=== PATIENT | male | born 1985 | race Caucasian/White ===

== ENCOUNTER 2020-10-01 08:48 | Inpatient (IN) ==
[2020-10-01] MEDS ORDERED: SODIUM CHLORIDE 0.9% 1000ML 2,000 ML IV ONE (09:14)
[2020-10-01] MEDS ORDERED: MULTI-VITAMIN INFUSION 10 ML, THIAMINE HCL 100 MG, FOLIC ACID 1 MG in SODIUM CHLORIDE 0... IV ONE (09:20)
--- NOTE | 2020-10-01 09:22 | Emergency Department Note ---
History of Present Illness General Chief complaint: Shortness of Breath/Dyspnea Stated complaint: SOB Time Seen by Provider: 10/01/20 09:05 History of Present Illness Maximum Pain Intensity: 7 This is a 35-year-old male who presents to the ED with a chief complaint of shortness of breath. The patient has been seen twice in the emergency department here in the past 8 months and is noted to have history of chronic alcohol abuse and alcoholism tendencies. He is a smoker. He is chronically on Suboxone for chronic pain issues. The patient also reports being on lisinopril for hypertension. The patient reports that he feels like he cannot breathe for the past couple of days. He also reported having a bad cough. He describes some mild chest pains which he states" feels like there is fluid in there". The patient denies any other complaints at this time. He has not had any fevers. The patient states that he got up to go to work at [employer] this morning I did not feel well enough to get there. He came to the hospital for his symptoms. Home Medications Medication Instructions Recorded Confirmed Type lisinopril 5 mg tablet 5 mg PO DAILY #30 tab 02/17/20 10/01/20 Rx buprenorphine 8 mg-naloxone 2 mg 1 tab SUBLINGUAL BID 09/04/20 10/01/20 History sublingual tablet Allergies Allergy/AdvReac Type Severity Reaction Status Date / Time No Known Allergies Allergy Unverified 10/01/20 09:46 Past Med/Surg History Medical History Alcohol use Narcotic abuse Surgical History No pertinent past surgical history Social History (Updated 10/01/20 @ 14:35 by IAM Niño) Smoking Status: Current every day smoker Tobacco Type: Cigarettes and E-cigarettes / Vaping Hx Alcohol Use: Yes Hx Substance Use: Yes (Currently on Suboxone) Prescribed Medications: Painkillers Feels Safe at Home: Yes Review of Systems As above otherwise negative for 10 systems Physical Exam Vital Signs Vital Signs - 24 hr 10/01/20 08:56 10/01/20 09:03 10/01/20 09:20 Temperature 36.4 C L Temperature Source Oral Pulse Rate 139 H 130 H Pulse Rate [Apical] Pulse Rate from SpO2 Sensor 129 H Respiratory Rate 32 H 22 Blood Pressure 83/52 L 113/59 L Blood Pressure [Left Arm] Blood Pressure Mean 62 77 Blood Pressure Mean [Left Arm] Blood Pressure Position [Left Arm] Pulse Oximetry 98 100 100 Oxygen Delivery Method Room Air Room Air Sepsis Recent Fever Within 48 Hours No Sepsis New/Unexplained Change in Mental Status N/A Sepsis Action Taken by Nursing No Action Required 10/01/20 09:30 10/01/20 10:00 10/01/20 10:04 Temperature Temperature Source Pulse Rate 123 H 118 H Pulse Rate [Apical] 118 H Pulse Rate from SpO2 Sensor 123 H 120 H Respiratory Rate 24 21 24 Blood Pressure 76/50 L 72/54 L Blood Pressure [Left Arm] 112/54 L Blood Pressure Mean 58 60 Blood Pressure Mean [Left Arm] 73 Blood Pressure Position [Left Arm] Lying Pulse Oximetry 96 96 100 Oxygen Delivery Method Room Air Sepsis Recent Fever Within 48 Hours Sepsis New/Unexplained Change in Mental Status Sepsis Action Taken by Nursing 10/01/20 10:30 10/01/20 11:00 10/01/20 11:31 Temperature Temperature Source Pulse Rate 120 H 121 H 130 H Pulse Rate [Apical] Pulse Rate from SpO2 Sensor 119 H 122 H 130 H Respiratory Rate 18 21 18 Blood Pressure 142/88 H 130/58 L 82/61 L Blood Pressure [Left Arm] Blood Pressure Mean 106 82 68 Blood Pressure Mean [Left Arm] Blood Pressure Position [Left Arm] Pulse Oximetry 99 98 98 Oxygen Delivery Method Sepsis Recent Fever Within 48 Hours Sepsis New/Unexplained Change in Mental Status Sepsis Action Taken by Nursing 10/01/20 11:45 10/01/20 12:00 10/01/20 12:15 Temperature Temperature Source Pulse Rate 125 H 128 H 135 H Pulse Rate [Apical] Pulse Rate from SpO2 Sensor 125 H 128 H 135 H Respiratory Rate 17 19 Blood Pressure 121/62 111/61 111/64 Blood Pressure [Left Arm] Blood Pressure Mean 81 77 79 Blood Pressure Mean [Left Arm] Blood Pressure Position [Left Arm] Pulse Oximetry 98 99 97 Oxygen Delivery Method Sepsis Recent Fever Within 48 Hours Sepsis New/Unexplained Change in Mental Status Sepsis Action Taken by Nursing 10/01/20 12:51 10/01/20 13:28 Temperature Temperature Source Pulse Rate 133 H Pulse Rate [Apical] 130 H Pulse Rate from SpO2 Sensor Respiratory Rate 13 20 Blood Pressure Blood Pressure [Left Arm] 97/47 L Blood Pressure Mean Blood Pressure Mean [Left Arm] 63 Blood Pressure Position [Left Arm] Pulse Oximetry 98 Oxygen Delivery Method Room Air Sepsis Recent Fever Within 48 Hours Sepsis New/Unexplained Change in Mental Status Sepsis Action Taken by Nursing CONSTITUTIONAL/VITAL SIGNS: Reviewed / noted above. GENERAL: Non-toxic in appearance. INTEGUMENTARY: Warm, dry, and [place]. HEAD: Normocephalic. EYES: without scleral icterus or trauma. ENT/OROPHARYNX: clear and moist. LYMPHADENOPATHY/NECK: Is supple without lymphadenopathy or meningismus. RESPIRATORY: Lungs clear and equal. CARDIOVASCULAR: Tachycardic rate and regular rhythm GI/ABDOMEN: Soft and nontender. No organomegaly or pulsatile mass. No rebound or guarding. Normal bowel sounds. EXTREMITIES: Warm and well perfused. BACK: No CVA tenderness. NEUROLOGICAL: Intact without focal deficits. PSYCHIATRIC: normal affect. MUSCULOSKELETAL: Normally developed with good muscle tone. TRIAGE NURSING DOCUMENTATION REVIEWED. Procedures Central Line Placement Left IJ: Time Out Performed: Yes Patient Placed on Monitor/Pulse Ox: Yes MD Prep: mask, gown and gloves Central Line Prep: Chlorhexidine scrub Local Anesthetic: lidocaine 1% Amount of anesthesia used (mL): 5 Ultrasound Used for Placement: Yes Central Line Lumen Inserted: triple Post Procedure: sutured in place, good blood return, all ports aspirated, flushed, capped and sterile dressing applied Post Procedure X-Ray: tip of catheter in good position and no pneumothorax seen Patient Tolerated Procedure: well and no complications Course Administered Medications Discontinued Medications Sodium Chloride (Nss 1000ml) 2,000 mls @ 999 mls/hr IV .Q2H1M ONE Stop: 10/01/20 11:14 Last Infusion: 10/01/20 14:06 Dose: 0 mls/hr Documented by: [id number] Admin: 10/01/20 09:24 Dose: 999 mls/hr Documented by: [id number] Multivitamins 10 ml/ Thiamine HCl 100 mg/ Folic Acid 1 mg/Sodium Chloride 1,011.2 mls @ 1,011.2 mls/hr IV .Q1H ONE Stop: 10/01/20 10:19 Last Infusion: 10/01/20 14:06 Dose: 0 mls/hr Documented by: [id number] Admin: 10/01/20 10:15 Dose: 1,011.2 mls/hr Documented by: [id number] Potassium Chloride (K Paco / Wtr) 10 meq in 100 mls @ 100 mls/hr IV Q1H BRENDA Stop: 10/01/20 12:44 Last Admin: 10/01/20 14:28 Dose: 100 mls/hr Documented by: [id number] Infusion: 10/01/20 14:16 Dose: 100 mls/hr Documented by: [id number] Admin: 10/01/20 13:16 Dose: 100 mls/hr Documented by: [id number] Ceftriaxone Sodium (Rocephin) 2,000 mg in 70 mls @ 140 mls/hr IV NOW STA Stop: 10/01/20 13:01 Last Infusion: 10/01/20 14:06 Dose: 0 mls/hr Documented by: [id number] Admin: 10/01/20 13:11 Dose: 140 mls/hr Documented by: [id number] Azithromycin 500 mg/ Dextrose 255 mls @ 127.5 mls/hr IV NOW STA Stop: 10/01/20 15:06 Last Admin: 10/01/20 13:24 Dose: 127.5 mls/hr Documented by: [id number] Ioversol (Optiray 320 125ml) 120 ml IV ONCE ONE Stop: 10/01/20 09:36 Last Admin: 10/01/20 09:35 Dose: 120 ml Documented by: [id number] Potassium Chloride (Potassium Chloride 10 Meq Tabcr) 40 meq PO NOW STA Stop: 10/01/20 10:45 Last Admin: 10/01/20 14:05 Dose: 40 meq Documented by: [id number] Potassium Chloride (Potassium Chloride 10 Meq Tabcr) Confirm Administered Dose 40 meq PO .STK-MED ONE Stop: 10/01/20 14:04 Last Admin: 10/01/20 14:05 Dose: Not Given Documented by: [id number] Critical Care Time Critical Care Time: Yes Total Critical Care Time: 90 I have personally spent 30 minutes of critical care time in the direct management of this patient. This includes bedside care, interpretation of diagnostic studies, and testing, discussion with consultants, patient, and family members, and other required patient management activities. This 30 minutes is in excess of all separately billable procedures. Medical Decision Making Differential Diagnosis The differential that was considered includes acute myocardial infarction, acute coronary syndrome, myocarditis, pericarditis, pericardial effusions /tamponade, esophageal perforation, thoracic aortic dissection, pulmonary embolism, pneumonia, pneumothorax, pancreatitis, shingles, acute cholecystitis, perforated abdominal viscus. Medical Records Attestation: I reviewed the patient's medical records. Home Medications Current Medication List: was personally reviewed by me Laboratory Data Attestation: I reviewed the patient's lab results. Result diagrams: 10/01/20 09:20 10/01/20 09:20 Lab Results 10/01/20 10/01/20 10/01/20 Range/Units 09:20 09:20 09:20 WBC 17.99 H (4.8-10.8) K/uL RBC 4.22 L (4.7-6.1) M/uL Hgb 13.9 L (14.0-18.0) g/dL POC Hgb (14.0-18.0) g/dl Hct 39.9 L (42-52) % POC Hct (42-52) % MCV 94.5 (80-100) fL MCH 32.9 (25-34) pg MCHC 34.8 (32-36) g/dL RDW Std Deviation 47.2 H (36.4-46.3) fL RDW Coeff of Desiree 13.7 (11.5-14.5) % Plt Count 229 (130-400) K/uL MPV 11.0 H (7.4-10.4) fL Immature Gran % (Auto) 0.5 % Neut % (Auto) 85.7 % Lymph % (Auto) 5.9 % [place] % (Auto) 7.7 % Eos % (Auto) 0.1 % Baso % (Auto) 0.1 % Neut # (Auto) 15.43 H (1.4-6.5) K/uL Lymph # (Auto) 1.07 L (1.2-3.4) K/uL [place] # (Auto) 1.38 H (0.11-0.59) K/uL Eos # (Auto) 0.01 (0-0.5) K/uL Baso # (Auto) 0.01 (0-0.2) K/uL Immature Gran # (Auto) 0.09 H (0.00-0.02) K/uL PT 10.6 (9.0-12.0) Seconds INR 1.0 (0.9-1.1) APTT 26.5 (21.0-31.0) Seconds PTT Ratio 1.0 D-Dimer 400 (0-500) ug/L FEU ABG pH (7.35-7.45) ABG pCO2 (35-46) mmHg ABG pO2 (80-95) mmHg ABG HCO3 (19-24) mmol/L ABG O2 Saturation (90-95) % ABG Base Excess (-9-1.8) mEq/L Andrew Test (Pos) Barometric Pressure mm/Hg Oxygen Given POC Sodium (135-144) mmol/L Sodium 115 L* (136-145) mmol/L POC Potassium (3.3-5.0) mmol/L Potassium 2.3 L* (3.5-5.1) mmol/L POC Chloride (101-112) mmol/L Chloride 70 L (98-107) mmol/L Carbon Dioxide 18 L (21-32) mmol/L POC Total CO2 (24-31) mmol/L Anion Gap 26.0 H (3-11) POC Anion Gap (16-25) mmol/L POC BUN (7-18) mg/dl BUN 37 H (7-18) mg/dl Creatinine 6.96 H* (0.6-1.4) mg/dl POC Creatinine (0.6-1.3) mg/dl Est Cr Clr Drug Dosing 18.5 ml/min Est GFR ( Amer) 10.7 ml/min Est GFR (Non-Af Amer) 9.2 ml/min BUN/Creatinine Ratio 5.3 L (10-20) Glucose 269 H (70-99) mg/dl POC Glucose (other) (70-99) mg/dl Osmolality (280-300) mOsm/kg POC Lactic Acid Dewayne (0.90-1.70) mmol/L Lactate Calcium 10.7 H (8.5-10.1) mg/dl POC Ioniz Calcium Nicolas (1.12-1.32) mmol/l Total Bilirubin 2.4 H (0.2-1) mg/dl AST 128 H (15-37) U/L ALT 66 (12-78) U/L Alkaline Phosphatase 218 H (45-117) U/L Troponin I 0.036 (0-0.045) ng/ml Total Protein 7.5 (6.4-8.2) gm/dl Albumin 3.0 L (3.4-5.0) gm/dl Globulin 4.5 H (2.5-4.0) gm/dl Albumin/Globulin Ratio 0.7 L (0.9-2) Lipase 202 (73-393) U/L Procalcitonin (0-0.5) ng/ml Urine Color Urine Appearance (Clear) Urine pH (4.5-7.5) Ur Specific [place]verse (1.000-1.030) Urine Protein (Negative) Urine Glucose (UA) (Negative) Urine Ketones (Negative) Urine Blood (Negative) Urine Nitrite (Negative) Urine Bilirubin (Negative) Urine Urobilinogen (Negative) Ur Leukocyte Esterase (Negative) Urine WBC (Auto) (0-5) /hpf Urine RBC (Auto) (0-4) /hpf U Hyaline Cast (Auto) (0-5) /lpf U Epithel Cells (Auto) (0-5) /lpf Urine Bacteria (Auto) (Negative) Urine Osmolality (500-800) mOsm/kg Ur Random Creatinine mg/dl Ur Random Sodium mmol/L Ur Random Potassium mmol/L Ur Random Chloride mmol/L Urine Opiates Screen (Neg) Ur Methadone, Qual (Neg) Urine Barbiturates (Neg) Ur Phencyclidine (PCP) (Neg) U Amphetamin/Meth Scrn (Neg) MDMA (Ecstasy) Screen (Neg) U Benzodiazepines Scrn (Neg) Ur Cocaine Metabolite (Neg) U Marijuana (THC) Screen (Neg) Ethyl Alcohol mg/dL (0-3) mg/dl Anaplasma Smear Lyme Disease IgG Ab (Negative) Lyme Disease IgM Ab (Negative) COVID-19 Eval Order SARS-CoV-2 (PCR) (Negative) 10/01/20 10/01/20 10/01/20 Range/Units 09:20 09:20 09:20 WBC (4.8-10.8) K/uL RBC (4.7-6.1) M/uL Hgb (14.0-18.0) g/dL POC Hgb (14.0-18.0) g/dl Hct (42-52) % POC Hct (42-52) % MCV (80-100) fL MCH (25-34) pg MCHC (32-36) g/dL RDW Std Deviation (36.4-46.3) fL RDW Coeff of Desiree (11.5-14.5) % Plt Count (130-400) K/uL MPV (7.4-10.4) fL Immature Gran % (Auto) % Neut % (Auto) % Lymph % (Auto) % [place] % (Auto) % Eos % (Auto) % Baso % (Auto) % Neut # (Auto) (1.4-6.5) K/uL Lymph # (Auto) (1.2-3.4) K/uL [place] # (Auto) (0.11-0.59) K/uL Eos # (Auto) (0-0.5) K/uL Baso # (Auto) (0-0.2) K/uL Immature Gran # (Auto) (0.00-0.02) K/uL PT (9.0-12.0) Seconds INR (0.9-1.1) APTT (21.0-31.0) Seconds PTT Ratio D-Dimer (0-500) ug/L FEU ABG pH (7.35-7.45) ABG pCO2 (35-46) mmHg ABG pO2 (80-95) mmHg ABG HCO3 (19-24) mmol/L ABG O2 Saturation (90-95) % ABG Base Excess (-9-1.8) mEq/L Andrew Test (Pos) Barometric Pressure mm/Hg Oxygen Given POC Sodium (135-144) mmol/L Sodium (136-145) mmol/L POC Potassium (3.3-5.0) mmol/L Potassium (3.5-5.1) mmol/L POC Chloride (101-112) mmol/L Chloride (98-107) mmol/L Carbon Dioxide (21-32) mmol/L POC Total CO2 (24-31) mmol/L Anion Gap (3-11) POC Anion Gap (16-25) mmol/L POC BUN (7-18) mg/dl BUN (7-18) mg/dl Creatinine (0.6-1.4) mg/dl POC Creatinine (0.6-1.3) mg/dl Est Cr Clr Drug Dosing ml/min Est GFR ( Amer) ml/min Est GFR (Non-Af Amer) ml/min BUN/Creatinine Ratio (10-20) Glucose (70-99) mg/dl POC Glucose (other) (70-99) mg/dl Osmolality (280-300) mOsm/kg POC Lactic Acid Dewayne (0.90-1.70) mmol/L Lactate Cancelled Calcium (8.5-10.1) mg/dl POC Ioniz Calcium Nicolas (1.12-1.32) mmol/l Total Bilirubin (0.2-1) mg/dl AST (15-37) U/L ALT (12-78) U/L Alkaline Phosphatase (45-117) U/L Troponin I (0-0.045) ng/ml Total Protein (6.4-8.2) gm/dl Albumin (3.4-5.0) gm/dl Globulin (2.5-4.0) gm/dl Albumin/Globulin Ratio (0.9-2) Lipase (73-393) U/L Procalcitonin 6.71 H (0-0.5) ng/ml Urine Color Urine Appearance (Clear) Urine pH (4.5-7.5) Ur Specific [place] (1.000-1.030) Urine Protein (Negative) Urine Glucose (UA) (Negative) Urine Ketones (Negative) Urine Blood (Negative) Urine Nitrite (Negative) Urine Bilirubin (Negative) Urine Urobilinogen (Negative) Ur Leukocyte Esterase (Negative) Urine WBC (Auto) (0-5) /hpf Urine RBC (Auto) (0-4) /hpf U Hyaline Cast (Auto) (0-5) /lpf U Epithel Cells (Auto) (0-5) /lpf Urine Bacteria (Auto) (Negative) Urine Osmolality (500-800) mOsm/kg Ur Random Creatinine mg/dl Ur Random Sodium mmol/L Ur Random Potassium mmol/L Ur Random Chloride mmol/L Urine Opiates Screen (Neg) Ur Methadone, Qual (Neg) Urine Barbiturates (Neg) Ur Phencyclidine (PCP) (Neg) U Amphetamin/Meth Scrn (Neg) MDMA (Ecstasy) Screen (Neg) U Benzodiazepines Scrn (Neg) Ur Cocaine Metabolite (Neg) U Marijuana (THC) Screen (Neg) Ethyl Alcohol mg/dL (0-3) mg/dl Anaplasma Smear See Comment Lyme Disease IgG Ab (Negative) Lyme Disease IgM Ab (Negative) COVID-19 Eval Order SARS-CoV-2 (PCR) (Negative) 10/01/20 10/01/20 10/01/20 Range/Units 09:30 09:30 09:30 WBC (4.8-10.8) K/uL RBC (4.7-6.1) M/uL Hgb (14.0-18.0) g/dL POC Hgb (14.0-18.0) g/dl Hct (42-52) % POC Hct (42-52) % MCV (80-100) fL MCH (25-34) pg MCHC (32-36) g/dL RDW Std Deviation (36.4-46.3) fL RDW Coeff of Desiree (11.5-14.5) % Plt Count (130-400) K/uL MPV (7.4-10.4) fL Immature Gran % (Auto) % Neut % (Auto) % Lymph % (Auto) % [place] % (Auto) % Eos % (Auto) % Baso % (Auto) % Neut # (Auto) (1.4-6.5) K/uL Lymph # (Auto) (1.2-3.4) K/uL [place] # (Auto) (0.11-0.59) K/uL Eos # (Auto) (0-0.5) K/uL Baso # (Auto) (0-0.2) K/uL Immature Gran # (Auto) (0.00-0.02) K/uL PT (9.0-12.0) Seconds INR (0.9-1.1) APTT (21.0-31.0) Seconds PTT Ratio D-Dimer (0-500) ug/L FEU ABG pH (7.35-7.45) ABG pCO2 (35-46) mmHg ABG pO2 (80-95) mmHg ABG HCO3 (19-24) mmol/L ABG O2 Saturation (90-95) % ABG Base Excess (-9-1.8) mEq/L Andrew Test (Pos) Barometric Pressure mm/Hg Oxygen Given POC Sodium (135-144) mmol/L Sodium (136-145) mmol/L POC Potassium (3.3-5.0) mmol/L Potassium (3.5-5.1) mmol/L POC Chloride (101-112) mmol/L Chloride (98-107) mmol/L Carbon Dioxide (21-32) mmol/L POC Total CO2 (24-31) mmol/L Anion Gap (3-11) POC Anion Gap (16-25) mmol/L POC BUN (7-18) mg/dl BUN (7-18) mg/dl Creatinine (0.6-1.4) mg/dl POC Creatinine (0.6-1.3) mg/dl Est Cr Clr Drug Dosing ml/min Est GFR ( Amer) ml/min Est GFR (Non-Af Amer) ml/min BUN/Creatinine Ratio (10-20) Glucose (70-99) mg/dl POC Glucose (other) (70-99) mg/dl Osmolality (280-300) mOsm/kg POC Lactic Acid Dewayne (0.90-1.70) mmol/L Lactate Calcium (8.5-10.1) mg/dl POC Ioniz Calcium Nicolas (1.12-1.32) mmol/l Total Bilirubin (0.2-1) mg/dl AST (15-37) U/L ALT (12-78) U/L Alkaline Phosphatase (45-117) U/L Troponin I (0-0.045) ng/ml Total Protein (6.4-8.2) gm/dl Albumin (3.4-5.0) gm/dl Globulin (2.5-4.0) gm/dl Albumin/Globulin Ratio (0.9-2) Lipase (73-393) U/L Procalcitonin (0-0.5) ng/ml Urine Color Urine Appearance (Clear) Urine pH (4.5-7.5) Ur Specific [place] (1.000-1.030) Urine Protein (Negative) Urine Glucose (UA) (Negative) Urine Ketones (Negative) Urine Blood (Negative) Urine Nitrite (Negative) Urine Bilirubin (Negative) Urine Urobilinogen (Negative) Ur Leukocyte Esterase (Negative) Urine WBC (Auto) (0-5) /hpf Urine RBC (Auto) (0-4) /hpf U Hyaline Cast (Auto) (0-5) /lpf U Epithel Cells (Auto) (0-5) /lpf Urine Bacteria (Auto) (Negative) Urine Osmolality (500-800) mOsm/kg Ur Random Creatinine mg/dl Ur Random Sodium mmol/L Ur Random Potassium mmol/L Ur Random Chloride mmol/L Urine Opiates Screen (Neg) Ur Methadone, Qual (Neg) Urine Barbiturates (Neg) Ur Phencyclidine (PCP) (Neg) U Amphetamin/Meth Scrn (Neg) MDMA (Ecstasy) Screen (Neg) U Benzodiazepines Scrn (Neg) Ur Cocaine Metabolite (Neg) U Marijuana (THC) Screen (Neg) Ethyl Alcohol mg/dL 22.9 H (0-3) mg/dl Anaplasma Smear Lyme Disease IgG Ab (Negative) Lyme Disease IgM Ab (Negative) COVID-19 Eval Order Covid19 at [facility] SARS-CoV-2 (PCR) NEGATIVE (Negative) 10/01/20 10/01/20 10/01/20 Range/Units 10:33 10:33 10:33 WBC (4.8-10.8) K/uL RBC (4.7-6.1) M/uL Hgb (14.0-18.0) g/dL POC Hgb (14.0-18.0) g/dl Hct (42-52) % POC Hct (42-52) % MCV (80-100) fL MCH (25-34) pg MCHC (32-36) g/dL RDW Std Deviation (36.4-46.3) fL RDW Coeff of Desiree (11.5-14.5) % Plt Count (130-400) K/uL MPV (7.4-10.4) fL Immature Gran % (Auto) % Neut % (Auto) % Lymph % (Auto) % [place] % (Auto) % Eos % (Auto) % Baso % (Auto) % Neut # (Auto) (1.4-6.5) K/uL Lymph # (Auto) (1.2-3.4) K/uL [place] # (Auto) (0.11-0.59) K/uL Eos # (Auto) (0-0.5) K/uL Baso # (Auto) (0-0.2) K/uL Immature Gran # (Auto) (0.00-0.02) K/uL PT (9.0-12.0) Seconds INR (0.9-1.1) APTT (21.0-31.0) Seconds PTT Ratio D-Dimer (0-500) ug/L FEU ABG pH (7.35-7.45) ABG pCO2 (35-46) mmHg ABG pO2 (80-95) mmHg ABG HCO3 (19-24) mmol/L ABG O2 Saturation (90-95) % ABG Base Excess (-9-1.8) mEq/L Andrew Test (Pos) Barometric Pressure mm/Hg Oxygen Given POC Sodium (135-144) mmol/L Sodium (136-145) mmol/L POC Potassium (3.3-5.0) mmol/L Potassium (3.5-5.1) mmol/L POC Chloride (101-112) mmol/L Chloride (98-107) mmol/L Carbon Dioxide (21-32) mmol/L POC Total CO2 (24-31) mmol/L Anion Gap (3-11) POC Anion Gap (16-25) mmol/L POC BUN (7-18) mg/dl BUN (7-18) mg/dl Creatinine (0.6-1.4) mg/dl POC Creatinine (0.6-1.3) mg/dl Est Cr Clr Drug Dosing ml/min Est GFR ( Amer) ml/min Est GFR (Non-Af Amer) ml/min BUN/Creatinine Ratio (10-20) Glucose (70-99) mg/dl POC Glucose (other) (70-99) mg/dl Osmolality 286 (280-300) mOsm/kg POC Lactic Acid Dewayne (0.90-1.70) mmol/L Lactate Cancelled Calcium (8.5-10.1) mg/dl POC Ioniz Calcium Nicolas (1.12-1.32) mmol/l Total Bilirubin (0.2-1) mg/dl AST (15-37) U/L ALT (12-78) U/L Alkaline Phosphatase (45-117) U/L Troponin I (0-0.045) ng/ml Total Protein (6.4-8.2) gm/dl Albumin (3.4-5.0) gm/dl Globulin (2.5-4.0) gm/dl Albumin/Globulin Ratio (0.9-2) Lipase (73-393) U/L Procalcitonin (0-0.5) ng/ml Urine Color Urine Appearance (Clear) Urine pH (4.5-7.5) Ur Specific [place] (1.000-1.030) Urine Protein (Negative) Urine Glucose (UA) (Negative) Urine Ketones (Negative) Urine Blood (Negative) Urine Nitrite (Negative) Urine Bilirubin (Negative) Urine Urobilinogen (Negative) Ur Leukocyte Esterase (Negative) Urine WBC (Auto) (0-5) /hpf Urine RBC (Auto) (0-4) /hpf U Hyaline Cast (Auto) (0-5) /lpf U Epithel Cells (Auto) (0-5) /lpf Urine Bacteria (Auto) (Negative) Urine Osmolality (500-800) mOsm/kg Ur Random Creatinine mg/dl Ur Random Sodium mmol/L Ur Random Potassium mmol/L Ur Random Chloride mmol/L Urine Opiates Screen (Neg) Ur Methadone, Qual (Neg) Urine Barbiturates (Neg) Ur Phencyclidine (PCP) (Neg) U Amphetamin/Meth Scrn (Neg) MDMA (Ecstasy) Screen (Neg) U Benzodiazepines Scrn (Neg) Ur Cocaine Metabolite (Neg) U Marijuana (THC) Screen (Neg) Ethyl Alcohol mg/dL (0-3) mg/dl Anaplasma Smear Lyme Disease IgG Ab Negative (Negative) Lyme Disease IgM Ab Equivocal A (Negative) COVID-19 Eval Order SARS-CoV-2 (PCR) (Negative) 10/01/20 10/01/20 10/01/20 Range/Units 10:59 11:02 12:08 WBC (4.8-10.8) K/uL RBC (4.7-6.1) M/uL Hgb (14.0-18.0) g/dL POC Hgb 15.6 (14.0-18.0) g/dl Hct (42-52) % POC Hct 46 (42-52) % MCV (80-100) fL MCH (25-34) pg MCHC (32-36) g/dL RDW Std Deviation (36.4-46.3) fL RDW Coeff of Desiree (11.5-14.5) % Plt Count (130-400) K/uL MPV (7.4-10.4) fL Immature Gran % (Auto) % Neut % (Auto) % Lymph % (Auto) % [place] % (Auto) % Eos % (Auto) % Baso % (Auto) % Neut # (Auto) (1.4-6.5) K/uL Lymph # (Auto) (1.2-3.4) K/uL [place] # (Auto) (0.11-0.59) K/uL Eos # (Auto) (0-0.5) K/uL Baso # (Auto) (0-0.2) K/uL Immature Gran # (Auto) (0.00-0.02) K/uL PT (9.0-12.0) Seconds INR (0.9-1.1) APTT (21.0-31.0) Seconds PTT Ratio D-Dimer (0-500) ug/L FEU ABG pH 7.44 (7.35-7.45) ABG pCO2 37 (35-46) mmHg ABG pO2 76 L (80-95) mmHg ABG HCO3 25 H (19-24) mmol/L ABG O2 Saturation 96.0 H (90-95) % ABG Base Excess 0.7 (-9-1.8) mEq/L Andrew Test Pos (Pos) Barometric Pressure 734.2 mm/Hg Oxygen Given ROOM AIR POC Sodium 117 L* (135-144) mmol/L Sodium (136-145) mmol/L POC Potassium 3.5 (3.3-5.0) mmol/L Potassium (3.5-5.1) mmol/L POC Chloride 80 L (101-112) mmol/L Chloride (98-107) mmol/L Carbon Dioxide (21-32) mmol/L POC Total CO2 24 (24-31) mmol/L Anion Gap (3-11) POC Anion Gap 17.0 (16-25) mmol/L POC BUN 53 H (7-18) mg/dl BUN (7-18) mg/dl Creatinine (0.6-1.4) mg/dl POC Creatinine 6.9 H* (0.6-1.3) mg/dl Est Cr Clr Drug Dosing ml/min Est GFR ( Amer) ml/min Est GFR (Non-Af Amer) ml/min BUN/Creatinine Ratio (10-20) Glucose (70-99) mg/dl POC Glucose (other) 130 H (70-99) mg/dl Osmolality (280-300) mOsm/kg POC Lactic Acid Dewayne (0.90-1.70) mmol/L Lactate Calcium (8.5-10.1) mg/dl POC Ioniz Calcium Nicolas 1.11 L (1.12-1.32) mmol/l Total Bilirubin (0.2-1) mg/dl AST (15-37) U/L ALT (12-78) U/L Alkaline Phosphatase (45-117) U/L Troponin I (0-0.045) ng/ml Total Protein (6.4-8.2) gm/dl Albumin (3.4-5.0) gm/dl Globulin (2.5-4.0) gm/dl Albumin/Globulin Ratio (0.9-2) Lipase (73-393) U/L Procalcitonin (0-0.5) ng/ml Urine Color Yellow Urine Appearance Clear (Clear) Urine pH 6.5 (4.5-7.5) Ur Specific [place] 1.008 (1.000-1.030) Urine Protein Trace H (Negative) Urine Glucose (UA) 1+ H (Negative) Urine Ketones Negative (Negative) Urine Blood 2+ H (Negative) Urine Nitrite Negative (Negative) Urine Bilirubin Negative (Negative) Urine Urobilinogen Negative (Negative) Ur Leukocyte Esterase Negative (Negative) Urine WBC (Auto) 1-5 (0-5) /hpf Urine RBC (Auto) 0-4 (0-4) /hpf U Hyaline Cast (Auto) 1-5 (0-5) /lpf U Epithel Cells (Auto) 10-20 H (0-5) /lpf Urine Bacteria (Auto) Negative (Negative) Urine Osmolality (500-800) mOsm/kg Ur Random Creatinine mg/dl Ur Random Sodium mmol/L Ur Random Potassium mmol/L Ur Random Chloride mmol/L Urine Opiates Screen (Neg) Ur Methadone, Qual (Neg) Urine Barbiturates (Neg) Ur Phencyclidine (PCP) (Neg) U Amphetamin/Meth Scrn (Neg) MDMA (Ecstasy) Screen (Neg) U Benzodiazepines Scrn (Neg) Ur Cocaine Metabolite (Neg) U Marijuana (THC) Screen (Neg) Ethyl Alcohol mg/dL (0-3) mg/dl Anaplasma Smear Lyme Disease IgG Ab (Negative) Lyme Disease IgM Ab (Negative) COVID-19 Eval Order SARS-CoV-2 (PCR) (Negative) 10/01/20 10/01/20 10/01/20 Range/Units 12:08 12:20 14:00 WBC (4.8-10.8) K/uL RBC (4.7-6.1) M/uL Hgb (14.0-18.0) g/dL POC Hgb (14.0-18.0) g/dl Hct (42-52) % POC Hct (42-52) % MCV (80-100) fL MCH (25-34) pg MCHC (32-36) g/dL RDW Std Deviation (36.4-46.3) fL RDW Coeff of Desiree (11.5-14.5) % Plt Count (130-400) K/uL MPV (7.4-10.4) fL Immature Gran % (Auto) % Neut % (Auto) % Lymph % (Auto) % [place] % (Auto) % Eos % (Auto) % Baso % (Auto) % Neut # (Auto) (1.4-6.5) K/uL Lymph # (Auto) (1.2-3.4) K/uL [place] # (Auto) (0.11-0.59) K/uL Eos # (Auto) (0-0.5) K/uL Baso # (Auto) (0-0.2) K/uL Immature Gran # (Auto) (0.00-0.02) K/uL PT (9.0-12.0) Seconds INR (0.9-1.1) APTT (21.0-31.0) Seconds PTT Ratio D-Dimer (0-500) ug/L FEU ABG pH (7.35-7.45) ABG pCO2 (35-46) mmHg ABG pO2 (80-95) mmHg ABG HCO3 (19-24) mmol/L ABG O2 Saturation (90-95) % ABG Base Excess (-9-1.8) mEq/L Andrew Test (Pos) Barometric Pressure mm/Hg Oxygen Given POC Sodium (135-144) mmol/L Sodium (136-145) mmol/L POC Potassium (3.3-5.0) mmol/L Potassium (3.5-5.1) mmol/L POC Chloride (101-112) mmol/L Chloride (98-107) mmol/L Carbon Dioxide (21-32) mmol/L POC Total CO2 (24-31) mmol/L Anion Gap (3-11) POC Anion Gap (16-25) mmol/L POC BUN (7-18) mg/dl BUN (7-18) mg/dl Creatinine (0.6-1.4) mg/dl POC Creatinine (0.6-1.3) mg/dl Est Cr Clr Drug Dosing ml/min Est GFR ( Amer) ml/min Est GFR (Non-Af Amer) ml/min BUN/Creatinine Ratio (10-20) Glucose (70-99) mg/dl POC Glucose (other) (70-99) mg/dl Osmolality (280-300) mOsm/kg POC Lactic Acid Dewayne 3.85 H (0.90-1.70) mmol/L Lactate Calcium (8.5-10.1) mg/dl POC Ioniz Calcium Nicolas (1.12-1.32) mmol/l Total Bilirubin (0.2-1) mg/dl AST (15-37) U/L ALT (12-78) U/L Alkaline Phosphatase (45-117) U/L Troponin I (0-0.045) ng/ml Total Protein (6.4-8.2) gm/dl Albumin (3.4-5.0) gm/dl Globulin (2.5-4.0) gm/dl Albumin/Globulin Ratio (0.9-2) Lipase (73-393) U/L Procalcitonin (0-0.5) ng/ml Urine Color Urine Appearance (Clear) Urine pH (4.5-7.5) Ur Specific Converse (1.000-1.030) Urine Protein (Negative) Urine Glucose (UA) (Negative) Urine Ketones (Negative) Urine Blood (Negative) Urine Nitrite (Negative) Urine Bilirubin (Negative) Urine Urobilinogen (Negative) Ur Leukocyte Esterase (Negative) Urine WBC (Auto) (0-5) /hpf Urine RBC (Auto) (0-4) /hpf U Hyaline Cast (Auto) (0-5) /lpf U Epithel Cells (Auto) (0-5) /lpf Urine Bacteria (Auto) (Negative) Urine Osmolality 238 L (500-800) mOsm/kg Ur Random Creatinine mg/dl Ur Random Sodium mmol/L Ur Random Potassium mmol/L Ur Random Chloride mmol/L Urine Opiates Screen Neg (Neg) Ur Methadone, Qual Neg (Neg) Urine Barbiturates Neg (Neg) Ur Phencyclidine (PCP) Neg (Neg) U Amphetamin/Meth Scrn Neg (Neg) MDMA (Ecstasy) Screen Neg (Neg) U Benzodiazepines Scrn Neg (Neg) Ur Cocaine Metabolite Neg (Neg) U Marijuana (THC) Screen Neg (Neg) Ethyl Alcohol mg/dL (0-3) mg/dl Anaplasma Smear Lyme Disease IgG Ab (Negative) Lyme Disease IgM Ab (Negative) COVID-19 Eval Order SARS-CoV-2 (PCR) (Negative) 10/01/20 Range/Units 14:00 WBC (4.8-10.8) K/uL RBC (4.7-6.1) M/uL Hgb (14.0-18.0) g/dL POC Hgb (14.0-18.0) g/dl Hct (42-52) % POC Hct (42-52) % MCV (80-100) fL MCH (25-34) pg MCHC (32-36) g/dL RDW Std Deviation (36.4-46.3) fL RDW Coeff of Desiree (11.5-14.5) % Plt Count (130-400) K/uL MPV (7.4-10.4) fL Immature Gran % (Auto) % Neut % (Auto) % Lymph % (Auto) % [place] % (Auto) % Eos % (Auto) % Baso % (Auto) % Neut # (Auto) (1.4-6.5) K/uL Lymph # (Auto) (1.2-3.4) K/uL [place] # (Auto) (0.11-0.59) K/uL Eos # (Auto) (0-0.5) K/uL Baso # (Auto) (0-0.2) K/uL Immature Gran # (Auto) (0.00-0.02) K/uL PT (9.0-12.0) Seconds INR (0.9-1.1) APTT (21.0-31.0) Seconds PTT Ratio D-Dimer (0-500) ug/L FEU ABG pH (7.35-7.45) ABG pCO2 (35-46) mmHg ABG pO2 (80-95) mmHg ABG HCO3 (19-24) mmol/L ABG O2 Saturation (90-95) % ABG Base Excess (-9-1.8) mEq/L Andrew Test (Pos) Barometric Pressure mm/Hg Oxygen Given POC Sodium (135-144) mmol/L Sodium (136-145) mmol/L POC Potassium (3.3-5.0) mmol/L Potassium (3.5-5.1) mmol/L POC Chloride (101-112) mmol/L Chloride (98-107) mmol/L Carbon Dioxide (21-32) mmol/L POC Total CO2 (24-31) mmol/L Anion Gap (3-11) POC Anion Gap (16-25) mmol/L POC BUN (7-18) mg/dl BUN (7-18) mg/dl Creatinine (0.6-1.4) mg/dl POC Creatinine (0.6-1.3) mg/dl Est Cr Clr Drug Dosing ml/min Est GFR ( Amer) ml/min Est GFR (Non-Af Amer) ml/min BUN/Creatinine Ratio (10-20) Glucose (70-99) mg/dl POC Glucose (other) (70-99) mg/dl Osmolality (280-300) mOsm/kg POC Lactic Acid Dewayne (0.90-1.70) mmol/L Lactate Calcium (8.5-10.1) mg/dl POC Ioniz Calcium Nicolas (1.12-1.32) mmol/l Total Bilirubin (0.2-1) mg/dl AST (15-37) U/L ALT (12-78) U/L Alkaline Phosphatase (45-117) U/L Troponin I (0-0.045) ng/ml Total Protein (6.4-8.2) gm/dl Albumin (3.4-5.0) gm/dl Globulin (2.5-4.0) gm/dl Albumin/Globulin Ratio (0.9-2) Lipase (73-393) U/L Procalcitonin (0-0.5) ng/ml Urine Color Urine Appearance (Clear) Urine pH (4.5-7.5) Ur Specific [place] (1.000-1.030) Urine Protein (Negative) Urine Glucose (UA) (Negative) Urine Ketones (Negative) Urine Blood (Negative) Urine Nitrite (Negative) Urine Bilirubin (Negative) Urine Urobilinogen (Negative) Ur Leukocyte Esterase (Negative) Urine WBC (Auto) (0-5) /hpf Urine RBC (Auto) (0-4) /hpf U Hyaline Cast (Auto) (0-5) /lpf U Epithel Cells (Auto) (0-5) /lpf Urine Bacteria (Auto) (Negative) Urine Osmolality (500-800) mOsm/kg Ur Random Creatinine 38.4 mg/dl Ur Random Sodium 40 mmol/L Ur Random Potassium 13.8 mmol/L Ur Random Chloride 36 mmol/L Urine Opiates Screen (Neg) Ur Methadone, Qual (Neg) Urine Barbiturates (Neg) Ur Phencyclidine (PCP) (Neg) U Amphetamin/Meth Scrn (Neg) MDMA (Ecstasy) Screen (Neg) U Benzodiazepines Scrn (Neg) Ur Cocaine Metabolite (Neg) U Marijuana (THC) Screen (Neg) Ethyl Alcohol mg/dL (0-3) mg/dl Anaplasma Smear Lyme Disease IgG Ab (Negative) Lyme Disease IgM Ab (Negative) COVID-19 Eval Order SARS-CoV-2 (PCR) (Negative) Imaging Data Radiologist's Impression: Abdomen/Pelvis CT 10/01/20 09:12 CT OF THE ABDOMEN AND PELVIS WITHOUT CONTRAST CLINICAL HISTORY: sob, tachycardic, low bp COMPARISON STUDY: CT of the abdomen and pelvis September 05, 2020. TECHNIQUE: Axial images of the abdomen and pelvis were obtained without IV contrast. Images were reviewed in the axial, sagittal, and coronal planes. Automated exposure control was utilized for the study. A dose lowering technique was utilized adhering to the principles of ALARA. FINDINGS: Imaged portions of the lower chest demonstrate moderate alveolar opacities within the left lower lobe. No pneumatosis, free air or portal venous gas is present. Evaluation of the abdomen and pelvis is suboptimal on this unenhanced examination. There is hepatic steatosis and hepatomegaly. No hepatic lesions are identified on this unenhanced exam. Unenhanced images of the spleen, adrenal glands and pancreas are unremarkable. There is no peripancreatic infiltration. Multiple bilateral renal lesions are suboptimally assessed on this unenhanced exam but these measure water attenuation. There is no hydronephrosis. Note is made of congenital bowel malrotation. There is no evidence for a bowel obstruction. There is no ascites or lymphadenopathy. Mild bladder wall thickening is noted. There is mild wall thickening of the distal esophagus. IMPRESSION: 1. Moderate left lower lobe alveolar opacities suggestive of an infectious process. 2. Hepatic steatosis and hepatomegaly. 3. Congenital bowel malrotation. No evidence for a bowel obstruction. 4. Mild circumferential wall thickening of the distal esophagus which may reflect esophagitis. ACT 112: Negative or not required by law. Electronically signed by: Rogerio Rouse M.D. 10/01/2020 1:09 PM Chest X-Ray 10/01/20 09:12 XR chest 1V portable HISTORY: Atypical Chest Pain COMPARISON: Chest 09/04/2020. FINDINGS: The lungs are clear. Cardiac silhouette is normal in size. No pleural effusions. No pneumothorax. IMPRESSION: No acute process. ACT 112: Negative or not required by law. Electronically signed by: Jhonny Meza M.D. 10/01/2020 9:[address] 10/01/20 09:13 CT OF THE CHEST WITHOUT IV CONTRAST CLINICAL HISTORY: Shortness of breath. COMPARISON STUDY: Chest radiograph performed earlier today. CT DOSE: 1614.50 mGy.cm TECHNIQUE: Axial images of the chest were obtained without IV contrast. Images were reviewed in the axial, sagittal, and coronal planes. IV contrast was not administered for this examination. Automated exposure control was utilized for the study. A dose lowering technique was utilized adhering to the principles of ALARA. FINDINGS: There is no pneumothorax following placement of a left internal jugular central line. Catheter tip is within the SVC. The size of the heart is normal. There is mild distal esophageal wall thickening. There is no pleural effusion. Note is made of moderate alveolar opacities within the left lower lobe. There are also mild alveolar opacities within the right upper lobe. Right middle lobe and right lower lobe airspace opacities on abdominal CT of September 05, 2020 have nearly completely resolved. The central airways are patent. There is no thoracic lymphadenopathy. Abdomen and pelvis will be reported separately. Hepatic steatosis is better depicted on that exam. IMPRESSION: 1. Moderate left lower lobe and mild right upper lobe alveolar opacities suggestive of pneumonia. 2. Hepatic steatosis. ACT 112: Negative or not required by law. Electronically signed by: Rogerio Rouse M.D. 10/01/2020 1:01 PM Chest X-Ray 10/01/20 12:13 XR chest 1V portable CLINICAL HISTORY: IJ placement COMPARISON STUDY: Chest radiograph performed earlier today. FINDINGS: There is no pneumothorax placement of a left internal jugular central line. Catheter tip projects in the SVC. Mild elevation the right hemidiaphragm is noted. Mild lower lung interstitial thickening is present. IMPRESSION: No pneumothorax following placement of a left internal jugular central line. ACT 112: Negative or not required by law. Electronically signed by: Rogerio Rouse M.D. 10/01/2020 12:31 PM ECG Data Additional Comments: Twelve-lead EKG: Per my interpretation there is a sinus tach at a rate of 130. J-point elevation in the inferior leads. Poor R wave progression.. EKG dated September 042020, the poor R wave progression was previously present. The ST changes in the inferior leads look slightly different of unclear significance at this point. Blood Pressure Blood Pressure Findings: Low blood pressure MDM Narrative Patient presents to the ED with a chief complaint of " cannot breathe" for the past couple days as well as a bad cough and some chest pain that he describes as " like fluid in there". History of alcoholism as well as Suboxone use for chronic pain syndromes. His initial blood pressure in triage was 83/52. His he art rate was 139. Respiratory rate was 32 and his EKG shows a sinus tach at a rate of 130 with some J-point elevation in the inferior leads. The patient's exam reveals clear lung sounds. Abdomen is soft but seems a little distended. The patient's white blood cell count was 18,000. Coagulation studies were normal. D-dimer was negative. Sodium was 115. Potassium is 2.3. Osmolality is 286. BUN is 37 and creatinine is 6.96. Bicarb is 18 with an anion gap of 26. Glucose is 269. Total bilirubin is 2.4. AST is 128. Alkaline phosphatase is 218. Procalcitonin level is elevated at 6.7. Alcohol level is 22. Lyme test was equivocal. Anaplasma smear was negative. Urine did not show in fection. Urine drug screen is negative. Chest x-ray did not show acute process.Covid test was negative. CT scan of the chest shows a moderate left lower lobe and mild right upper lobe pneumonia. CT scan of the abdomen pelvis did not show any acute intra-abdominal pathology. ABG reveals a normal acid- base status with normal PCO2. PO2 was 76. The patient was given 2 L of IV normal saline here as well as 1 L of banana bag with thiamine and folic acid. He was given some IV potassium chloride as well as p.o. potassium chloride. The patient was empirically treated with IV Rocephin and IV Zithromax. The patient will be seen by the hospitalist for further inpatient evaluation and care. Because of lack of adequate IV access in the patient's persistent and recurrent hypotension, a central line was placed in the left IJ by myself. Impression & Plan Bilateral pneumonia, Acute renal failure, Acute hyponatremia, Septic shock, A cute hypokalemia, Acute hyperglycemia Discharge Plan Visit Data Chief Complaint: Shortness of Breath/Dyspnea Stated Complaint: SOB ED Provider: [facility] Bradley Discharge Problem: Bilateral pneumonia, Acute renal failure, Acute hyponatremia, Septic shock, Acute hypokalemia, Acute hyperglycemia Patient Disposition: Admitted As Inpatient Discharge Instructions Interventions: ED Discharge Assessment Last Done: 10/01/20 14:39 Forms Stand Alone Forms: [facility] Watch Over Me Prescriptions Prescriptions: No Action lisinopril 5 mg tablet 5 mg PO DAILY Qty: 30 RF: 0 buprenorphine-naloxone 8-2 mg tablet, sublingual 1 tab SUBLINGUAL BID RF: 0 Referrals Referrals: PCP,NO [Primary Care Provider] -
[2020-10-01 09:35] LABS: Basophils # (auto) 0.01 K/uL (0-0.2); Basophils % (auto) 0.1 %; Eosinophils # (auto) 0.01 K/uL (0-0.5); Eosinophils % (auto) 0.1 %; Hematocrit (blood only) 39.9 % (42-52); Hemoglobin 13.9 g/dL (14.0-18.0); Immature Granulocytes # (auto) 0.09 K/uL (0.00-0.02); Immature Granulocytes % (auto) 0.5 %; Lymphocytes # (auto) 1.07 K/uL (1.2-3.4); Lymphocytes % (auto) 5.9 %; Mean Corpuscular Hemoglobin 32.9 pg (25-34); Mean Corpuscular Hgb Conc 34.8 g/dL (32-36); Mean Corpuscular Volume 94.5 fL (80-100); Monocytes # (auto) 1.38 K/uL (0.11-0.59); Monocytes % (auto) 7.7 %; Neutrophils # (auto) 15.43 K/uL (1.4-6.5); Neutrophils % (auto) 85.7 %; Platelet Count 229 K/uL (130-400); RDW Coefficient of Variation 13.7 % (11.5-14.5); RDW Standard Deviation 47.2 fL (36.4-46.3); Red Blood Count 4.22 M/uL (4.7-6.1); White Blood Count 17.99 K/uL (4.8-10.8)
[2020-10-01] MEDS ORDERED: OPTIRAY 320 125ml IV ONE (09:35)
--- NOTE | 2020-10-01 09:39 | XRay Report ---
XR chest 1V portable HISTORY: Atypical Chest Pain COMPARISON: Chest 09/04/2020. FINDINGS: The lungs are clear. Cardiac silhouette is normal in size. No pleural effusions. No pneumot horax. IMPRESSION: No acute process. ACT 112: Negative or not required by law. Electronically signed by: Jhonny Meza M.D. 10/01/2020 9:37 AM
[2020-10-01 09:59] LABS: D Dimer 400 ug/L FEU (0-500); Partial Thromboplastin Time 26.5 Seconds (21.0-31.0); Prothrombin Time 10.6 Seconds (9.0-12.0)
[2020-10-01 10:37] LABS: Albumin Globulin Ratio 0.7 (0.9-2); BUN Creatinine Ratio 5.3 (10-20); Bilirubin,Total 2.4 mg/dl (0.2-1); Calcium 10.7 mg/dl (8.5-10.1); Creatinine Clr Calc Pharmacy 18.5 ml/min; Est GFR (African American) 10.7 ml/min; Est GFR (Non-African American) 9.2 ml/min; Globulin 4.5 gm/dl (2.5-4.0); Potassium 2.3 mmol/L (3.5-5.1); Total Protein 7.5 gm/dl (6.4-8.2); Troponin I 0.036 ng/ml (0-0.045)
[2020-10-01] MEDS ORDERED: POTASSIUM CHLORIDE 10 MEQ TABCR PO STA (10:44)
[2020-10-01 11:12] LABS: iSTAT Creatinine 6.9 mg/dl (0.6-1.3); iSTAT Hemoglobin 15.6 g/dl (14.0-18.0); iSTAT Ionized Calcium 1.11 mmol/l (1.12-1.32); iSTAT Potassium 3.5 mmol/L (3.3-5.0)
[2020-10-01 11:12] LABS: Base Excess ABG 0.7 mEq/L (-9-1.8); HCO3 ABG 25 mmol/L (19-24); PCO2 ABG 37 mmHg (35-46); PO2 ABG 76 mmHg (80-95); pH ABG 7.44 (7.35-7.45)
[2020-10-01 11:13] LABS: Allen Test Pos (Pos)
[2020-10-01] MEDS ORDERED: cefTRIAXone SODIUM 2,000 MG/70 ML BAG IV STA (12:32)
--- NOTE | 2020-10-01 12:32 | XRay Report ---
XR chest 1V portable CLINICAL HISTORY: IJ placement COMPARISON STUDY: Chest radiograph performed earlier today. FINDINGS: There is no pneumothorax placement of a left internal jugular central line. Catheter tip pr ojects in the SVC. Mild elevation the right hemidiaphragm is noted. Mild lower lung interstitial thic kening is present. IMPRESSION: No pneumothorax following placement of a left internal jugular central line. ACT 112: Negative or not required by law. Electronically signed by: Rogerio Rouse M.D. 10/01/2020 12:31 PM
[2020-10-01 12:54] LABS: Appearance Urine Clear (Clear); Bacteria Urine Automated Negative (Negative); Bilirubin Urine Negative (Negative); Blood Urine 2+ (Negative); Color Urine Yellow; Glucose Urine UA 1+ (Negative); Ketones Urine Negative (Negative); Leukocyte Esterase Urine Negative (Negative); Nitrite Urine Negative (Negative); Protein Urine Trace (Negative); RBC Urine Automated 0-4 /hpf (0-4); Specific Gravity Urine 1.008 (1.000-1.030); Urobilinogen Urine Negative (Negative); pH Urine 6.5 (4.5-7.5)
--- NOTE | 2020-10-01 13:03 | CT Scan Report ---
CT OF THE CHEST WITHOUT IV CONTRAST CLINICAL HISTORY: Shortness of breath. COMPARISON STUDY: Chest radiograph performed earlier today. CT DOSE: 1614.50 mGy.cm TECHNIQUE: Axial images of the chest were obtained without IV contrast. Images were reviewed in the axial, sagittal, and coronal planes. IV contrast was not administered for this examination. Automat ed exposure control was utilized for the study. A dose lowering technique was utilized adhering to t he principles of ALARA. FINDINGS: There is no pneumothorax following placement of a left internal jugular central line. Cath eter tip is within the SVC. The size of the heart is normal. There is mild distal esophageal wall thi ckening. There is no pleural effusion. Note is made of moderate alveolar opacities within the left lo wer lobe. There are also mild alveolar opacities within the right upper lobe. Right middle lobe and r ight lower lobe airspace opacities on abdominal CT of September 05, 2020 have nearly completely resolved. The central airways are patent. There is no thoracic lymphadenopathy. Abdomen and pelvis will be repo rted separately. Hepatic steatosis is better depicted on that exam. IMPRESSION: 1. Moderate left lower lobe and mild right upper lobe alveolar opacities suggestive of pneumonia. 2. Hepatic steatosis. ACT 112: Negative or not required by law. Electronically signed by: Rogerio Rouse M.D. 10/01/2020 1:01 PM
[2020-10-01] MEDS ORDERED: AZITHROMYCIN 500 MG in DEXTROSE 5% 250 ML IV STA (13:07)
[2020-10-01 13:08] LABS: Amphetamines+Metham, Urine Neg (Neg); Barbiturates, Urine Neg (Neg); Benzodiazepine, Urine Neg (Neg); Cocaine, Urine Neg (Neg); MDMA (Ecstacy), Urine Neg (Neg); Methadone, Urine Neg (Neg); Opiate, Urine Neg (Neg); Phencyclidine, Urine Neg (Neg)
--- NOTE | 2020-10-01 13:11 | CT Scan Report ---
CT OF THE ABDOMEN AND PELVIS WITHOUT CONTRAST CLINICAL HISTORY: sob, tachycardic, low bp COMPARISON STUDY: CT of the abdomen and pelvis September 05, 2020. TECHNIQUE: Axial images of the abdomen and pelvis were obtained without IV contrast. Images were revi ewed in the axial, sagittal, and coronal planes. Automated exposure control was utilized for the carlos dy. A dose lowering technique was utilized adhering to the principles of ALARA. FINDINGS: Imaged portions of the lower chest demonstrate moderate alveolar opacities within the left lower lobe. No pneumatosis, free air or portal venous gas is present. Evaluation of the abdomen and p isael is suboptimal on this unenhanced examination. There is hepatic steatosis and hepatomegaly. No h epatic lesions are identified on this unenhanced exam. Unenhanced images of the spleen, adrenal gland s and pancreas are unremarkable. There is no peripancreatic infiltration. Multiple bilateral renal le sions are suboptimally assessed on this unenhanced exam but these measure water attenuation. There is no hydronephrosis. Note is made of congenital bowel malrotation. There is no evidence for a bowel ob struction. There is no ascites or lymphadenopathy. Mild bladder wall thickening is noted. There is mi ld wall thickening of the distal esophagus. IMPRESSION: 1. Moderate left lower lobe alveolar opacities suggestive of an infectious process. 2. Hepatic steatosis and hepatomegaly. 3. Congenital bowel malrotation. No evidence for a bowel obstruction. 4. Mild circumferential wall thickening of the distal esophagus which may reflect esophagitis. ACT 112: Negative or not required by law. Electronically signed by: Rogerio Rouse M.D. 10/01/2020 1:09 PM
[2020-10-01] MEDS: POTASSIUM CHLORIDE / WTR 10 MEQ/100 ML PLCT IV SCH ×2 (13:16→14:28)
--- NOTE | 2020-10-01 13:33 | Electrocardiogram Report ---
Test Reason : Blood Pressure : / mmHG Vent. Rate : 131 BPM Atrial Rate : 131 BPM P-R Int : 128 ms QRS Dur : 106 ms QT Int : 348 ms P-R-T Axes : -27 082 041 degrees QTc Int : 513 ms Sinus tachycardia Inferior infarct , age undetermined Poor R wave progression, consider anterior AL vs. lead placement vs. LVH Abnormal ECG When compared with ECG of 04-SEP-2020 23:41, No significant change was found Confirmed by Felipe Reyna ([id number]) on 10/01/2020 1:32:31 PM Referred By: REFERRED SELF Confirmed By:Felipe Reyna
[2020-10-01] MEDS ORDERED: LACTATED RINGER'S 1,000 ML IV SCH (13:45)
[2020-10-01] MEDS ORDERED: POTASSIUM CHLORIDE 10 MEQ TABCR PO ONE (14:03)
--- NOTE | 2020-10-01 14:19 | History & Physical Report ---
Date of Service October 01, 2020 Assessment & Plan (1) Pneumonia: Plan: Bilateral lobar pneumonia- vaping and smoking history - EOS normal on periphery - Blood cultures pending - Continue Rocephin and Azithromycin- broaden out if needed and de-escalate as needed - change to doxycycline for atypical pending lyme and anaplasmosis (2) Sepsis: Plan: SIRS 3, qSOFA 2 - As above, urine pending - Continue volume resuscitation - Trend lactate - MAPS >65 (3) Alcohol use: Plan: AAWS coverage with Ativan - limited options with renal function and hypotension at this time (4) Lactic acidosis: Plan: Sepsis with hypovolemia and BESSIE - received 1 liter of saline and 1 banana bag in EMD - Continue resuscitation based on urine output and lactate - LR 125 ml per hour - bolus per ICU (5) BESSIE (acute kidney injury): Plan: Currently still making urine- He denies any new medications - UA with protein and blood - VICTOR M on hold - Continue with volume resuscitation - Mixed metabolic acidosis and respiratory alkalosis- Gap is improving with resuscitation - BMP q4 hours - Urine NA 40 - Urine [employer] 38.4 - Urine K 13.8 - Cr CL 36 - Total CK 228 - Support resuscitation and follow gaps/HCO3/Lactate and electrolytes - nephrology following incase dialysis would be needed (6) High serum osmolar gap: Plan: Ingestion possible- elevated triglycerides with ethyl alcohol on board- likely causing serum > calculated osm serum 286 - osmolar gap 278 Urine OSMO 238 - ethyl ETOH 22.9 - Lactate 3.8 - Nephrology +/- fomepizole (7) Hyponatremia: Plan: Hypovolemia hyponatremia with ETOH abuse likely, multifocal - Lipids sent with triglyceride 2028- likely adding tot he above hyponatremia significantly - Continue with volume resuscitation with LR - or normosol - Continue with potassium replacement as well as this will help - Should improve with potassium replacement and volume replacement- consider changing fluid at NA 123-125 (6-8 mmol correction) (8) Hypokalemia: Plan: Continue with ICU replacement protocol careful with his [employer] - Follow ECG - Both should improve (9) Narcotic abuse: Plan: Cotninue suboxone - ICU for pain control (10) HTN (hypertension): Plan: Hold ARB (11) Hyperglycemia: Plan: Glucose 269 on admission HCO3 25 on ABG, 18 on CO2 serum - PH 7.44 mixed - Continue with resuscitation and glucose control - ICU insulin protocol - Follow HCo3 and response to glucose control History of Present Illness Primary Care Provider: NO PCP 35 YOM with past medical history of: Alcohol abuse, HTN, Obesity, on Suboxone for history of drug abuse, Patient has no records for review other than a previous ER admission for ETOH intoxication and bilateral lobe infiltrates, where he declined admission and was treated with oral antibiotics in August 2020. Patient comes to the EMD today for complaints of shortness of breath, cough, muscle fatigue and body aches. He says that he has been feeling unwell for the past two days but today just felt like he couldn't walk or hold himself upright. He endorses to being outside yesterday spraying weeds with round-up, but other than that nothing out of the ordinary. He states that he has been urinating more frequently and his urine is just "off yellow color". He denies any use of drugs, or drinking any other substances other than beer. He endorses 2-3 beers a day and continues to smoke. Patient had workup in the EMD with CXR, CT scan of chest and abdomen non contrasted, labs, toxicology screen. His CT scan of the abdomen revealed hypersteatosis, bi-lateral intrapelvic renal cysts, possible cystitis, partial bowel malrotation (?congenital). CXR and CT scan revealed multilobar bilateral opacities. He is also noted for multiple electrolyte disturbances and an acute rise in his [employer] to 6.96 (this was 0.92 in August), Anion gap with mixed acidosis, Lactic acid of 3.2, and elevated PCT 6.71. Patient continues to be tachycardic and variable hemodynamic response but hypotensive, he has received 1liter of normal saline and 1 liter of banana bag in the EMD. He will be admitted to the ICU for continued volume resuscitation, follow metabolic parameters, renal function and electrolyte panel. Nephrology has been consulted. Allergies Allergy/AdvReac Type Severity Reaction Status Date / Time No Known Allergies Allergy Unverified 10/01/20 09:46 Home Medications Medication Instructions Recorded Confirmed Type lisinopril 5 mg tablet 5 mg PO DAILY #30 tab 02/17/20 10/01/20 Rx buprenorphine 8 mg-naloxone 2 mg 1 tab SUBLINGUAL BID 09/04/20 10/01/20 History sublingual tablet Past Med/Surg History Medical History Alcohol use Narcotic abuse Surgical History No pertinent past surgical history Family History Other No pertinent family history Social History Smoking Status: Current every day smoker Tobacco Type: Cigarettes and E-cigarettes / Vaping Hx Alcohol Use: Yes Alcohol type: hard liquor Hx Substance Use: No Preferred Language: Macedonian Communication Ability: Effective Beliefs That Will Affect Care: None Current Living Situation: Alone Feels Safe at Home: Yes Assistive Devices: None Review of Systems Review of Systems: REVIEW OF SYSTEMS: Constitutional: No fever, sweats or chills Eyes: No diplopia, no worsening or blurred vision ENT: normal hearing, no trouble swallowing Respiratory: (+) cough, sputum, dyspnea at rest or on exertion Cardiovascular: No chest pain, tightness or palpitations Abdomen: No pain, nausea, vomiting, diarrhea or constipation Musculoskeletal: (+) joint pain and muscle pain, NO calf pain, swelling Neurologic: No weakness, numbness/tingling, or balance problems Psychiatric: No anxiety or depression Skin: No rash or itch Physical Exam Physical Exam: PHYSICAL EXAM: General: awake, alert, no apparent distress Head: Normocephalic, atraumatic ENT: PERRL, EOMI, no pharyngeal exudate, mucous membranes moist Neuro: AAO x 3, speech clear and appropriate, strength intact bilaterally 5/5, sensation intact and equal all extremities and dermatomes, no pronator drift, no cervical tenderness, no lumbar or thoracic tenderness, no ataxia or tremors Chest: equal rise and fall of the chest, tachypneic, scattered coarse rhonchi throughout, on room ai, Cardiac: Regular rate and rhythm, telemetry reviewed- tachycardic, skin warm dry, cap refill <3 seconds, peripheral pulses +2 no JVD, no murmur, no edema GI: NABS x 4 quadrants, soft, nontender to palpation, no rebound, guarding or tenderness : Spontaneously voiding, no pain, no CVA tenderness, Extremities: muscle pain with palpation to quads and calves and knees, scabs to lower extremities and arm , no peripheral edema or erythema, Psych: intoxicated Skin: no rash or erythema Results & Data Results & Data ([facility]) Vital Signs (Past 12 Hours) Vital Signs Temp Pulse Pulse Resp BP BP Pulse Ox 10/01/20 13:28 130 H 20 97/47 L 98 10/01/20 12:51 133 H 13 10/01/20 12:15 135 H 111/64 97 10/01/20 12:00 128 H 19 111/61 99 10/01/20 11:45 125 H 17 121/62 98 10/01/20 11:31 130 H 18 82/61 L 98 10/01/20 11:00 121 H 21 130/58 L 98 10/01/20 10:30 120 H 18 142/88 H 99 10/01/20 10:04 118 H 24 112/54 L 100 10/01/20 10:00 118 H 21 72/54 L 96 10/01/20 09:30 123 H 24 76/50 L 96 10/01/20 09:20 100 10/01/20 09:03 130 H 22 113/59 L 100 10/01/20 08:56 36.4 C L 139 H 32 H 83/52 L 98 Laboratory Results Abnormal Labs 10/01/20 10/01/20 10/01/20 09:20 09:20 09:20 WBC 17.99 H RBC 4.22 L Hgb 13.9 L Hct 39.9 L RDW Std Deviation 47.2 H MPV 11.0 H Neut # (Auto) 15.43 H Lymph # (Auto) 1.07 L [place] # (Auto) 1.38 H Immature Gran # (Auto) 0.09 H ABG pO2 ABG HCO3 ABG O2 Saturation POC Sodium Sodium 115 L* Potassium 2.3 L* POC Chloride Chloride 70 L Carbon Dioxide 18 L Anion Gap 26.0 H POC BUN BUN 37 H Creatinine 6.96 H* POC Creatinine BUN/Creatinine Ratio 5.3 L Glucose 269 H POC Glucose (other) POC Lactic Acid Dewayne Calcium 10.7 H POC Ioniz Calcium Nicolas Total Bilirubin 2.4 H AST 128 H Alkaline Phosphatase 218 H Albumin 3.0 L Globulin 4.5 H Albumin/Globulin Ratio 0.7 L Procalcitonin 6.71 H Urine Protein Urine Glucose (UA) Urine Blood U Epithel Cells (Auto) Ethyl Alcohol mg/dL Lyme Disease IgM Ab 10/01/20 10/01/20 10/01/20 09:30 10:33 10:59 WBC RBC Hgb Hct RDW Std Deviation MPV Neut # (Auto) Lymph # (Auto) [place] # (Auto) Immature Gran # (Auto) ABG pO2 ABG HCO3 ABG O2 Saturation POC Sodium 117 L* Sodium Potassium POC Chloride 80 L Chloride Carbon Dioxide Anion Gap POC BUN 53 H BUN Creatinine POC Creatinine 6.9 H* BUN/Creatinine Ratio Glucose POC Glucose (other) 130 H POC Lactic Acid Dewayne Calcium POC Ioniz Calcium Nicolas 1.11 L Total Bilirubin AST Alkaline Phosphatase Albumin Globulin Albumin/Globulin Ratio Procalcitonin Urine Protein Urine Glucose (UA) Urine Blood U Epithel Cells (Auto) Ethyl Alcohol mg/dL 22.9 H Lyme Disease IgM Ab Equivocal A 10/01/20 10/01/20 10/01/20 11:02 12:08 12:20 WBC RBC Hgb Hct RDW Std Deviation MPV Neut # (Auto) Lymph # (Auto) [place] # (Auto) Immature Gran # (Auto) ABG pO2 76 L ABG HCO3 25 H ABG O2 Saturation 96.0 H POC Sodium Sodium Potassium POC Chloride Chloride Carbon Dioxide Anion Gap POC BUN BUN Creatinine POC Creatinine BUN/Creatinine Ratio Glucose POC Glucose (other) POC Lactic Acid Dewayne 3.85 H Calcium POC Ioniz Calcium Nicolas Total Bilirubin AST Alkaline Phosphatase Albumin Globulin Albumin/Globulin Ratio Procalcitonin Urine Protein Trace H Urine Glucose (UA) 1+ H Urine Blood 2+ H U Epithel Cells (Auto) 10-20 H Ethyl Alcohol mg/dL Lyme Disease IgM Ab Diagnostic Findings Abdomen/Pelvis CT 10/01/20 09:12 CT OF THE ABDOMEN AND PELVIS WITHOUT CONTRAST CLINICAL HISTORY: sob, tachycardic, low bp COMPARISON STUDY: CT of the abdomen and pelvis September 05, 2020. TECHNIQUE: Axial images of the abdomen and pelvis were obtained without IV contrast. Images were reviewed in the axial, sagittal, and coronal planes. Automated exposure control was utilized for the study. A dose lowering technique was utilized adhering to the principles of ALARA. FINDINGS: Imaged portions of the lower chest demonstrate moderate alveolar opacities within the left lower lobe. No pneumatosis, free air or portal venous gas is present. Evaluation of the abdomen and pelvis is suboptimal on this unenhanced examination. There is hepatic steatosis and hepatomegaly. No hepatic lesions are identified on this unenhanced exam. Unenhanced images of the spleen, adrenal glands and pancreas are unremarkable. There is no peripancreatic infiltration. Multiple bilateral renal lesions are suboptimally assessed on this unenhanced exam but these measure water attenuation. There is no hydronephrosis. Note is made of congenital bowel malrotation. There is no evidence for a bowel obstruction. There is no ascites or lymphadenopathy. Mild bladder wall thickening is noted. There is mild wall thickening of the distal esophagus. IMPRESSION: 1. Moderate left lower lobe alveolar opacities suggestive of an infectious process. 2. Hepatic steatosis and hepatomegaly. 3. Congenital bowel malrotation. No evidence for a bowel obstruction. 4. Mild circumferential wall thickening of the distal esophagus which may reflect esophagitis. Electronically signed by: Rogerio Rouse M.D. 10/01/2020 1:09 PM Chest X-Ray 10/01/20 09:12 XR chest 1V portable HISTORY: Atypical Chest Pain COMPARISON: Chest 09/04/2020. FINDINGS: The lungs are clear. Cardiac silhouette is normal in size. No pleural effusions. No pneumothorax. IMPRESSION: No acute process. Electronically signed by: Jhonny Meza M.D. 10/01/2020 9:[address] 10/01/20 09:13 CT OF THE CHEST WITHOUT IV CONTRAST CLINICAL HISTORY: Shortness of breath. COMPARISON STUDY: Chest radiograph performed earlier today. CT DOSE: 1614.50 mGy.cm TECHNIQUE: Axial images of the chest were obtained without IV contrast. Images were reviewed in the axial, sagittal, and coronal planes. IV contrast was not administered for this examination. Automated exposure control was utilized for the study. A dose lowering technique was utilized adhering to the principles of ALARA. FINDINGS: There is no pneumothorax following placement of a left internal jugular central line. Catheter tip is within the SVC. The size of the heart is normal. There is mild distal esophageal wall thickening. There is no pleural effusion. Note is made of moderate alveolar opacities within the left lower lobe. There are also mild alveolar opacities within the right upper lobe. Right middle lobe and right lower lobe airspace opacities on abdominal CT of September 05, 2020 have nearly completely resolved. The central airways are patent. There is no thoracic lymphadenopathy. Abdomen and pelvis will be reported separately. Hepatic steatosis is better depicted on that exam. IMPRESSION: 1. Moderate left lower lobe and mild right upper lobe alveolar opacities suggestive of pneumonia. 2. Hepatic steatosis. ACT 112: Negative or not required by law. Electronically signed by: Rogerio Rouse M.D. 10/01/2020 1:01 PM Chest X-Ray 10/01/20 12:13 XR chest 1V portable CLINICAL HISTORY: IJ placement COMPARISON STUDY: Chest radiograph performed earlier today. FINDINGS: There is no pneumothorax placement of a left internal jugular central line. Catheter tip projects in the SVC. Mild elevation the right hemidiaphragm is noted. Mild lower lung interstitial thickening is present. IMPRESSION: No pneumothorax following placement of a left internal jugular central line. Electronically signed by: Rogerio Rouse M.D. 10/01/2020 12:31 PM Medications Administered Azithromycin 500 mg/ Dextrose 255 mls @ 127.5 mls/hr IV NOW STA Stop: 10/01/20 15:06 Last Admin: 10/01/20 13:24 Dose: 127.5 mls/hr Documented by: [id number] Discontinued Medications Sodium Chloride (Nss 1000ml) 2,000 mls @ 999 mls/hr IV .Q2H1M ONE Stop: 10/01/20 11:14 Last Infusion: 10/01/20 14:06 Dose: 0 mls/hr Documented by: [id number] Admin: 10/01/20 09:24 Dose: 999 mls/hr Documented by: [id number] Multivitamins 10 ml/ Thiamine HCl 100 mg/ Folic Acid 1 mg/Sodium Chloride 1,011.2 mls @ 1,011.2 mls/hr IV .Q1H ONE Stop: 10/01/20 10:19 Last Infusion: 10/01/20 14:06 Dose: 0 mls/hr Documented by: [id number] Admin: 10/01/20 10:15 Dose: 1,011.2 mls/hr Documented by: [id number] Potassium Chloride (K Paco / Wtr) 10 meq in 100 mls @ 100 mls/hr IV Q1H BRENDA Stop: 10/01/20 12:44 Last Admin: 10/01/20 14:28 Dose: 100 mls/hr Documented by: [id number] Infusion: 10/01/20 14:16 Dose: 100 mls/hr Documented by: [id number] Admin: 10/01/20 13:16 Dose: 100 mls/hr Documented by: [id number] Ceftriaxone Sodium (Rocephin) 2,000 mg in 70 mls @ 140 mls/hr IV NOW STA Stop: 10/01/20 13:01 Last Infusion: 10/01/20 14:06 Dose: 0 mls/hr Documented by: [id number] Admin: 10/01/20 13:11 Dose: 140 mls/hr Documented by: [id number] Ioversol (Optiray 320 125ml) 120 ml IV ONCE ONE Stop: 10/01/20 09:36 Last Admin: 10/01/20 09:35 Dose: 120 ml Documented by: [id number] Potassium Chloride (Potassium Chloride 10 Meq Tabcr) 40 meq PO NOW STA Stop: 10/01/20 10:45 Last Admin: 10/01/20 14:05 Dose: 40 meq Documented by: [id number] Potassium Chloride (Potassium Chloride 10 Meq Tabcr) Confirm Administered Dose 40 meq PO .STK-MED ONE Stop: 10/01/20 14:04 Last Admin: 10/01/20 14:05 Dose: Not Given Documented by: [id number] ECG Additional Comments: Vent. Rate : 131 BPM Atrial Rate : 131 BPM P-R Int : 128 ms QRS Dur : 106 ms QT Int : 348 ms P-R-T Axes : -27 082 041 degrees QTc Int : 513 ms Sinus tachycardia Inferior infarct , age undetermined Poor R wave progression, consider anterior AK vs. lead placement vs. LVH Abnormal ECG When compared with ECG of 04-SEP-2020 23:41, No significant change was found Code Status & VTE Plan Code Status CODE: FULL VTE: SCDs, Heparin subq 5000 TID VTE Prophylaxis Plan VTE Prophylaxis will be ordered: Yes Critical Care Time Critical Care Time: Yes Total Critical Care Time: 90 Supervising Physician Co-Signing Physician Notes Attending Attestation - Pt seen/examined, chart reviewed, care plan d/w Elmo VITALE. I agree w/ the valentin components of his documentation. 35yo male with chronic alcohol abuse, chronic vaping, and chronic use of suboxone presents with severe illness and symptoms including cough, shortness of breath, myalgias, severe weakness. Patient has been feeling unwell for several weeks but worsened in the last 1-2 days. He was very vague with how much etoh he actually consumes. He adamantly denied consumption of methanol (moonshine, etc), antifreeze, rubbing alcohol, etc. He vapes on a daily basis. Did spray round-up weed killer for 2+hours a few hours ago without the use of a mask. PMH, PSH, allergies, meds, sochx, famhx - reviewed hypotensive , tachycardic gen - toxic appearing, but awake /alert/able to give full history eyes - pupils 2-3mm and reactive mouth - MM dry heart - tachy, s1 s2 lungs - diffuse wheezes b/l; course BS b/l; crackles b/l; tachypneic abd - liver edge palpable; BS+; NT skin - abrasions and ulcerations on right arm, right leg ext - cap refill feet 3-4 sec; cool feet; pulses present 1+ b/l; popliteal pulse s 2+ b/l; no edema labs reviewed imaging reviewed EKG - my reading - SVT vs atach? etoh level minimaly elevated A/P: 1. severe hyponatremia - suspect volume depletion, ARF, etc all culprits; normo isma hydration, serial BMPs 2. acute renal failure - prerenal causes suspected; FeNa oddly 6% but he is not obstructed. Agree with nephrology this is likely ATN. Hold VICTOR M. 3. b/l pneumonia - infectious? vaping lung injury? COVID neg. Agree w/ rocephin/doxy. 4. elevated osmolality gap - concerning for ingestion (methanol, isopropyl etoh, etc). Consider fomepizole. 5. severe hypokalemia- replace. 6. suspected SVT or atach - consider beta asa if BP can tolerate. 7. lactic acidosis 8. abnormal LFTs - likely 2nd to etoh abuse 9. chronic suboxine use 10. chronic vaping 11. HTN - hold VICTOR M. patient is critically ill care d/w Dr Saravia care d/w Dr Ray admit to ICU total critical care time 90 min between myself and Mr Griffin's care Tashi Apple MD PG Care Time/CCT Total # of Minutes Spent Total Time Spent with Patient: Total time spent is greater than 50% in c oordination of care (as documented) at patient's floor/unit and/or counseling patient: Critical Care Time: Yes Total Critical Care Time: 90 Coding Level of Care Code None Diagnoses Alcohol use Z72.89 Sepsis A41.9 High serum osmolar gap R74.8 Hyponatremia E87.1 Hypokalemia E87.6 Lactic acidosis E87.2 BESSIE (acute kidney injury) N17.9 Pneumonia J18.9 Narcotic abuse F11.10 HTN (hypertension) I10 Hyperglycemia R73.9 Additional Codes Critical Care Time - Critical Care Time: Yes ([id number]) Comment CC time 90 minutes
[2020-10-01 14:23] LABS: Lyme Ab IgG w/WB Rflx Negative (Negative)
[2020-10-01 14:30] LABS: Lyme Ab IgM w/WB Rflx Equivocal (Negative)
[2020-10-01 15:11] LABS: Creatinine Urine Random 38.4 mg/dl; Potassium Random Urine 13.8 mmol/L
--- NOTE | 2020-10-01 15:16 | Nephrology Consultation ---
Date of Consultation October 01, 2020 Assessment & Plan (1) Acute renal failure: * BESSIE - suspect ATN related to hypotension in the setting of VICTOR M inhibitor therapy * No obstruction reported on contrast negative abdominal CT * CPK level - pending * No acute indication for HD at this time (2) High serum osmolar gap: * Osmolar gap 22 * Lactic acidosis, BESSIE, ethanol ingestion are likely contributing * Patient is neurologically intact. He is not significantly acidemic at this time * Case discussed w/ [facility], Dr. Powell this afternoon. He advised testing for ethylene glycol, methanol, propylene glycol, isopropyl alcohol and beta hydroxybuterate and starting Fomepazole 15mg/kg IV load followed by 10mg/kg IV every 12 hours until results obtained. HD not felt to be indicated at this time as patient is not significantly acidemic or have severe electrolyte abnormalities. Orders placed in EMR and discussed w/ both [facility] lab (send out labs) and pharmacy. ICU team updated (3) Acute hyponatremia: * Urine osmolality ordered * Patient has been ordered IV LR. Goal is to correct serum sodium ~ 6 mEq during the 1st 24 hours (4) Septic shock: * Chest CT reveals bilateral infiltrates * On IV Azithromycin and Ceftriaxone History of Present Illness Reason for Consultation: BESSIE History of Present Illness Mr. Arellano is a 35 year old white male who is seen at the request of Dr. Bradley for evaluation of BESSIE. Medical records in the EMR were reviewed today and are summarized as follows: Mr. Arellano has a h/o HTN, tobacco use, vaping, alcohol and narcotic abuse. His only medications are Lisniopril and Suboxone. He denies any other chronic medical illnesses including CKD (baseline Cr 1.0 09/04). He has not yet been vaccinated for COVID. Mr. Arellano reports spraying Round-Up for 2 hours last week to clear his yard of weeds. 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 Over the last 72 hours he has developed lower back and leg pain. Today he became increasingly weak and presented to the ED for evaluation: T36.4, BP 72/54, Na 115, BUN 37, Cr 6.96, Ethanol 22.9, lactate 3.85, ABG-pH 7.44/pCO2 37/HCO3 25/SaO2 96%, AG 26, osmolar gap 22. Mr. Arellano denied trying to intentionally harm himself. He denied any toxic ingestion (including moonshine, antifreeze, wood alcohol, rubbing alcohol). Allergies Allergy/AdvReac Type Severity Reaction Status Date / Time No Known Allergies Allergy Unverified 10/01/20 09:46 Home Medications Medication Instructions Recorded Confirmed Type lisinopril 5 mg tablet 5 mg PO DAILY #30 tab 02/17/20 10/01/20 Rx buprenorphine 8 mg-naloxone 2 mg 1 tab SUBLINGUAL BID 09/04/20 10/01/20 History sublingual tablet Patient History Medical History Alcohol use Narcotic abuse Surgical History No pertinent past surgical history Social History Smoking Status: Current every day smoker Tobacco Type: Cigarettes and E-cigarettes / Vaping Hx Alcohol Use: Yes Hx Substance Use: Yes (Currently on Suboxone) Prescribed Medications: Painkil lers Feels Safe at Home: Yes Review of Systems Constitutional: + weakness; no fever and no chills Eyes: no worsening vision Ear, Nose, Mouth, Throat: no problem reported Respiratory: + dyspnea; no cough Cardiovascular: + edema; no chest pain and no palpitations Gastrointestinal: no abdominal pain, no nausea, no vomiting and no diarrhea/loose stools Genitourinary: no dysuria, no urinary hesitancy or no hematuria Musculoskeletal: + back pain Neurologic: no dizziness and no confusion Physical Exam Constitutional: + obese and cooperative; not in distress Eyes: PERRL, conjunctivae normal, anicteric sclerae ENMT: external ear and nose normal, oropharynx normal Neck: trachea midline, no thyromegaly Respiratory: normal respiratory effort and able to speak in complete sentences; no respiratory distress Auscultation: + rales (bilaterally) Cardiovascular: Rate/Rhythm: regular rhythm and + tachycardic Extremities: + edema (1+ LE swelling) Gastrointestinal (Abdomen): normal bowel sounds, soft, nontender, no hepatosplenomegaly Musculoskeletal: Extremities: no cyanosis, no clubbing and no petechiae Skin: no rashes, warm and dry Neurologic: awake; not confused Results & Data ([facility]) Vital Signs (Past 12 Hours) Vital Signs Temp Pulse Pulse Resp BP BP Pulse Ox 10/01/20 13:28 130 H 20 97/47 L 98 10/01/20 12:51 133 H 13 10/01/20 12:15 135 H 111/64 97 10/01/20 12:00 128 H 19 111/61 99 10/01/20 11:45 125 H 17 121/62 98 10/01/20 11:31 130 H 18 82/61 L 98 10/01/20 11:00 121 H 21 130/58 L 98 10/01/20 10:30 120 H 18 142/88 H 99 10/01/20 10:04 118 H 24 112/54 L 100 10/01/20 10:00 118 H 21 72/54 L 96 10/01/20 09:30 123 H 24 76/50 L 96 10/01/20 09:20 100 10/01/20 09:03 130 H 22 113/59 L 100 10/01/20 08:56 36.4 C L 139 H 32 H 83/52 L 98 Laboratory Results Laboratory Results - last 24 hr 10/01/20 10/01/20 10/01/20 09:20 09:20 09:20 WBC 17.99 H RBC 4.22 L Hgb 13.9 L POC Hgb Hct 39.9 L POC Hct MCV 94.5 MCH 32.9 MCHC 34.8 RDW Std Deviation 47.2 H RDW Coeff of Desiree 13.7 Plt Count 229 MPV 11.0 H Immature Gran % (Auto) 0.5 Neut % (Auto) 85.7 Lymph % (Auto) 5.9 [place]nam % (Auto) 7.7 Eos % (Auto) 0.1 Baso % (Auto) 0.1 Neut # (Auto) 15.43 H Lymph # (Auto) 1.07 L [place] # (Auto) 1.38 H Eos # (Auto) 0.01 Baso # (Auto) 0.01 Immature Gran # (Auto) 0.09 H PT 10.6 INR 1.0 APTT 26.5 PTT Ratio 1.0 D-Dimer 400 ABG pH ABG pCO2 ABG pO2 ABG HCO3 ABG O2 Saturation ABG Base Excess Andrew Test Barometric Pressure Oxygen Given POC Sodium Sodium 115 L* POC Potassium Potassium 2.3 L* POC Chloride Chloride 70 L Carbon Dioxide 18 L POC Total CO2 Anion Gap 26.0 H POC Anion Gap POC BUN BUN 37 H Creatinine 6.96 H* POC Creatinine Est Cr Clr Drug Dosing 18.5 Est GFR ( Amer) 10.7 Est GFR (Non-Af Amer) 9.2 BUN/Creatinine Ratio 5.3 L Glucose 269 H POC Glucose POC Glucose (other) Osmolality POC Lactic Acid Dewayne Lactate Calcium 10.7 H POC Ioniz Calcium Nicolas Total Bilirubin 2.4 H AST 128 H ALT 66 Alkaline Phosphatase 218 H Total Creatine Kinase Troponin I 0.036 Total Protein 7.5 Albumin 3.0 L Globulin 4.5 H Albumin/Globulin Ratio 0.7 L Triglycerides Cholesterol LDL Cholesterol, Calc VLDL Cholesterol, Calc HDL Cholesterol Cholesterol/HDL Ratio Lipase 202 Beta-Hydroxybutyric Acd Procalcitonin Urine Color Urine Appearance Urine pH Ur Specific Quinn Urine Protein Urine Glucose (UA) Urine Ketones Urine Blood Urine Nitrite Urine Bilirubin Urine Urobilinogen Ur Leukocyte Esterase Urine WBC (Auto) Urine RBC (Auto) U Hyaline Cast (Auto) U Epithel Cells (Auto) Urine Bacteria (Auto) Urine Osmolality Ur Random Creatinine Ur Random Sodium Ur Random Potassium Ur Random Chloride Urine Opiates Screen Ur Methadone, Qual Urine Barbiturates Ur Phencyclidine (PCP) U Amphetamin/Meth Scrn MDMA (Ecstasy) Screen U Benzodiazepines Scrn Ur Cocaine Metabolite U Marijuana (THC) Screen Ethylene Glycol Volat Analys Perform On Ethyl Alcohol mg/dL Methyl Alcohol Level Anaplasma Smear A. phagocytophilum DNA Lyme Disease IgG Ab Lyme IgG (Western Blot) Lyme IgG 18 kDa Band Lyme IgG 23 kDa Band Lyme IgG 28 kDa Band Lyme IgG 30 kDa Band Lyme IgG 39 kDa Band Lyme IgG 41 kDa Band Lyme IgG 45 kDa Band Lyme IgG 58 kDa Band Lyme IgG 66 kDa Band Lyme IgG 93 kDa Band Lyme IgM Ab (WB) Lyme Disease IgM Ab Lyme IgM 23 kDa Band Lyme IgM 39 kDa Band Lyme IgM 41 kDa Band COVID-19 Eval Order SARS-CoV-2 (PCR) 10/01/20 10/01/20 10/01/20 09:20 09:20 09:20 WBC RBC Hgb POC Hgb Hct POC Hct MCV MCH MCHC RDW Std Deviation RDW Coeff of Desiree Plt Count MPV Immature Gran % (Auto) Neut % (Auto) Lymph % (Auto) [place] % (Auto) Eos % (Auto) Baso % (Auto) Neut # (Auto) Lymph # (Auto) [place] # (Auto) Eos # (Auto) Baso # (Auto) Immature Gran # (Auto) PT INR APTT PTT Ratio D-Dimer ABG pH ABG pCO2 ABG pO2 ABG HCO3 ABG O2 Saturation ABG Base Excess Andrew Test Barometric Pressure Oxygen Given POC Sodium Sodium POC Potassium Potassium POC Chloride Chloride Carbon Dioxide POC Total CO2 Anion Gap POC Anion Gap POC BUN BUN Creatinine POC Creatinine Est Cr Clr Drug Dosing Est GFR ( Amer) Est GFR (Non-Af Amer) BUN/Creatinine Ratio Glucose POC Glucose POC Glucose (other) Osmolality POC Lactic Acid Dewayne Lactate Cancelled Calcium POC Ioniz Calcium Nicolas Total Bilirubin AST ALT Alkaline Phosphatase Total Creatine Kinase Troponin I Total Protein Albumin Globulin Albumin/Globulin Ratio Triglycerides Cholesterol LDL Cholesterol, Calc VLDL Cholesterol, Calc HDL Cholesterol Cholesterol/HDL Ratio Lipase Beta-Hydroxybutyric Acd Procalcitonin 6.71 H Urine Color Urine Appearance Urine pH Ur Specific Quinn Urine Protein Urine Glucose (UA) Urine Ketones Urine Blood Urine Nitrite Urine Bilirubin Urine Urobilinogen Ur Leukocyte Esterase Urine WBC (Auto) Urine RBC (Auto) U Hyaline Cast (Auto) U Epithel Cells (Auto) Urine Bacteria (Auto) Urine Osmolality Ur Random Creatinine Ur Random Sodium Ur Random Potassium Ur Random Chloride Urine Opiates Screen Ur Methadone, Qual Urine Barbiturates Ur Phencyclidine (PCP) U Amphetamin/Meth Scrn MDMA (Ecstasy) Screen U Benzodiazepines Scrn Ur Cocaine Metabolite U Marijuana (THC) Screen Ethylene Glycol Volat Analys Perform On Ethyl Alcohol mg/dL Methyl Alcohol Level Anaplasma Smear See Comment A. phagocytophilum DNA Lyme Disease IgG Ab Lyme IgG (Western Blot) Lyme IgG 18 kDa Band Lyme IgG 23 kDa Band Lyme IgG 28 kDa Band Lyme IgG 30 kDa Band Lyme IgG 39 kDa Band Lyme IgG 41 kDa Band Lyme IgG 45 kDa Band Lyme IgG 58 kDa Band Lyme IgG 66 kDa Band Lyme IgG 93 kDa Band Lyme IgM Ab (WB) Lyme Disease IgM Ab Lyme IgM 23 kDa Band Lyme IgM 39 kDa Band Lyme IgM 41 kDa Band COVID-19 Eval Order SARS-CoV-2 (PCR) 10/01/20 10/01/20 10/01/20 09:20 09:30 09:30 WBC RBC Hgb POC Hgb Hct POC Hct MCV MCH MCHC RDW Std Deviation RDW Coeff of Desiree Plt Count MPV Immature Gran % (Auto) Neut % (Auto) Lymph % (Auto) [place] % (Auto) Eos % (Auto) Baso % (Auto) Neut # (Auto) Lymph # (Auto) [place] # (Auto) Eos # (Auto) Baso # (Auto) Immature Gran # (Auto) PT INR APTT PTT Ratio D-Dimer ABG pH ABG pCO2 ABG pO2 ABG HCO3 ABG O2 Saturation ABG Base Excess Andrew Test Barometric Pressure Oxygen Given POC Sodium Sodium POC Potassium Potassium POC Chloride Chloride Carbon Dioxide POC Total CO2 Anion Gap POC Anion Gap POC BUN BUN Creatinine POC Creatinine Est Cr Clr Drug Dosing Est GFR ( Amer) Est GFR (Non-Af Amer) BUN/Creatinine Ratio Glucose POC Glucose POC Glucose (other) Osmolality POC Lactic Acid Dewayne Lactate Calcium POC Ioniz Calcium Nicolas Total Bilirubin AST ALT Alkaline Phosphatase Total Creatine Kinase Troponin I Total Protein Albumin Globulin Albumin/Globulin Ratio Triglycerides Cholesterol LDL Cholesterol, Calc VLDL Cholesterol, Calc HDL Cholesterol Cholesterol/HDL Ratio Lipase Beta-Hydroxybutyric Acd Procalcitonin Urine Color Urine Appearance Urine pH Ur Specific Quinn Urine Protein Urine Glucose (UA) Urine Ketones Urine Blood Urine Nitrite Urine Bilirubin Urine Urobilinogen Ur Leukocyte Esterase Urine WBC (Auto) Urine RBC (Auto) U Hyaline Cast (Auto) U Epithel Cells (Auto) Urine Bacteria (Auto) Urine Osmolality Ur Random Creatinine Ur Random Sodium Ur Random Potassium Ur Random Chloride Urine Opiates Screen Ur Methadone, Qual Urine Barbiturates Ur Phencyclidine (PCP) U Amphetamin/Meth Scrn MDMA (Ecstasy) Screen U Benzodiazepines Scrn Ur Cocaine Metabolite U Marijuana (THC) Screen Ethylene Glycol Volat Analys Perform On Ethyl Alcohol mg/dL 22.9 H Methyl Alcohol Level Anaplasma Smear A. phagocytophilum DNA Pending Lyme Disease IgG Ab Lyme IgG (Western Blot) Lyme IgG 18 kDa Band Lyme IgG 23 kDa Band Lyme IgG 28 kDa Band Lyme IgG 30 kDa Band Lyme IgG 39 kDa Band Lyme IgG 41 kDa Band Lyme IgG 45 kDa Band Lyme IgG 58 kDa Band Lyme IgG 66 kDa Band Lyme IgG 93 kDa Band Lyme IgM Ab (WB) Lyme Disease IgM Ab Lyme IgM 23 kDa Band Lyme IgM 39 kDa Band Lyme IgM 41 kDa Band COVID-19 Eval Order Covid19 at [facility] SARS-CoV-2 (PCR) 10/01/20 10/01/20 10/01/20 09:30 10:33 10:33 WBC RBC Hgb POC Hgb Hct POC Hct MCV MCH MCHC RDW Std Deviation RDW Coeff of Desiree Plt Count MPV Immature Gran % (Auto) Neut % (Auto) Lymph % (Auto) [place] % (Auto) Eos % (Auto) Baso % (Auto) Neut # (Auto) Lymph # (Auto) [place] # (Auto) Eos # (Auto) Baso # (Auto) Immature Gran # (Auto) PT INR APTT PTT Ratio D-Dimer ABG pH ABG pCO2 ABG pO2 ABG HCO3 ABG O2 Saturation ABG Base Excess Andrew Test Barometric Pressure Oxygen Given POC Sodium Sodium POC Potassium Potassium POC Chloride Chloride Carbon Dioxide POC Total CO2 Anion Gap POC Anion Gap POC BUN BUN Creatinine POC Creatinine Est Cr Clr Drug Dosing Est GFR ( Amer) Est GFR (Non-Af Amer) BUN/Creatinine Ratio Glucose POC Glucose POC Glucose (other) Osmolality 286 POC Lactic Acid Dewayne Lactate Cancelled Calcium POC Ioniz Calcium Nicolas Total Bilirubin AST ALT Alkaline Phosphatase Total Creatine Kinase Troponin I Total Protein Albumin Globulin Albumin/Globulin Ratio Triglycerides Cholesterol LDL Cholesterol, Calc VLDL Cholesterol, Calc HDL Cholesterol Cholesterol/HDL Ratio Lipase Beta-Hydroxybutyric Acd Procalcitonin Urine Color Urine Appearance Urine pH Ur Specific Quinn Urine Protein Urine Glucose (UA) Urine Ketones Urine Blood Urine Nitrite Urine Bilirubin Urine Urobilinogen Ur Leukocyte Esterase Urine WBC (Auto) Urine RBC (Auto) U Hyaline Cast (Auto) U Epithel Cells (Auto) Urine Bacteria (Auto) Urine Osmolality Ur Random Creatinine Ur Random Sodium Ur Random Potassium Ur Random Chloride Urine Opiates Screen Ur Methadone, Qual Urine Barbiturates Ur Phencyclidine (PCP) U Amphetamin/Meth Scrn MDMA (Ecstasy) Screen U Benzodiazepines Scrn Ur Cocaine Metabolite U Marijuana (THC) Screen Ethylene Glycol Volat Analys Perform On Ethyl Alcohol mg/dL Methyl Alcohol Level Anaplasma Smear A. phagocytophilum DNA Lyme Disease IgG Ab Lyme IgG (Western Blot) Lyme IgG 18 kDa Band Lyme IgG 23 kDa Band Lyme IgG 28 kDa Band Lyme IgG 30 kDa Band Lyme IgG 39 kDa Band Lyme IgG 41 kDa Band Lyme IgG 45 kDa Band Lyme IgG 58 kDa Band Lyme IgG 66 kDa Band Lyme IgG 93 kDa Band Lyme IgM Ab (WB) Lyme Disease IgM Ab Lyme IgM 23 kDa Band Lyme IgM 39 kDa Band Lyme IgM 41 kDa Band COVID-19 Eval Order SARS-CoV-2 (PCR) NEGATIVE 10/01/20 10/01/20 10/01/20 10:33 10:33 10:59 WBC RBC Hgb POC Hgb 15.6 Hct POC Hct 46 MCV MCH MCHC RDW Std Deviation RDW Coeff of Desiree Plt Count MPV Immature Gran % (Auto) Neut % (Auto) Lymph % (Auto) [place] % (Auto) Eos % (Auto) Baso % (Auto) Neut # (Auto) Lymph # (Auto) [place] # (Auto) Eos # (Auto) Baso # (Auto) Immature Gran # (Auto) PT INR APTT PTT Ratio D-Dimer ABG pH ABG pCO2 ABG pO2 ABG HCO3 ABG O2 Saturation ABG Base Excess Andrew Test Barometric Pressure Oxygen Given POC Sodium 117 L* Sodium POC Potassium 3.5 Potassium POC Chloride 80 L Chloride Carbon Dioxide POC Total CO2 24 Anion Gap POC Anion Gap 17.0 POC BUN 53 H BUN Creatinine POC Creatinine 6.9 H* Est Cr Clr Drug Dosing Est GFR ( Amer) Est GFR (Non-Af Amer) BUN/Creatinine Ratio Glucose POC Glucose POC Glucose (other) 130 H Osmolality POC Lactic Acid Dewayne Lactate Calcium POC Ioniz Calcium Nicolas 1.11 L Total Bilirubin AST ALT Alkaline Phosphatase Total Creatine Kinase Troponin I Total Protein Albumin Globulin Albumin/Globulin Ratio Triglycerides Cholesterol LDL Cholesterol, Calc VLDL Cholesterol, Calc HDL Cholesterol Cholesterol/HDL Ratio Lipase Beta-Hydroxybutyric Acd Procalcitonin Urine Color Urine Appearance Urine pH Ur Specific Quinn Urine Protein Urine Glucose (UA) Urine Ketones Urine Blood Urine Nitrite Urine Bilirubin Urine Urobilinogen Ur Leukocyte Esterase Urine WBC (Auto) Urine RBC (Auto) U Hyaline Cast (Auto) U Epithel Cells (Auto) Urine Bacteria (Auto) Urine Osmolality Ur Random Creatinine Ur Random Sodium Ur Random Potassium Ur Random Chloride Urine Opiates Screen Ur Methadone, Qual Urine Barbiturates Ur Phencyclidine (PCP) U Amphetamin/Meth Scrn MDMA (Ecstasy) Screen U Benzodiazepines Scrn Ur Cocaine Metabolite U Marijuana (THC) Screen Ethylene Glycol Volat Analys Perform On Ethyl Alcohol mg/dL Methyl Alcohol Level Anaplasma Smear A. phagocytophilum DNA Lyme Disease IgG Ab Negative Lyme IgG (Western Blot) Pending Lyme IgG 18 kDa Band Pending Lyme IgG 23 kDa Band Pending Lyme IgG 28 kDa Band Pending Lyme IgG 30 kDa Band Pending Lyme IgG 39 kDa Band Pending Lyme IgG 41 kDa Band Pending Lyme IgG 45 kDa Band Pending Lyme IgG 58 kDa Band Pending Lyme IgG 66 kDa Band Pending Lyme IgG 93 kDa Band Pending Lyme IgM Ab (WB) Pending Lyme Disease IgM Ab Equivocal A Lyme IgM 23 kDa Band Pending Lyme IgM 39 kDa Band Pending Lyme IgM 41 kDa Band Pending COVID-19 Eval Order SARS-CoV-2 (PCR) 10/01/20 10/01/20 10/01/20 11:02 12:08 12:08 WBC RBC Hgb POC Hgb Hct POC Hct MCV MCH MCHC RDW Std Deviation RDW Coeff of Desiree Plt Count MPV Immature Gran % (Auto) Neut % (Auto) Lymph % (Auto) [place] % (Auto) Eos % (Auto) Baso % (Auto) Neut # (Auto) Lymph # (Auto) [place] # (Auto) Eos # (Auto) Baso # (Auto) Immature Gran # (Auto) PT INR APTT PTT Ratio D-Dimer ABG pH 7.44 ABG pCO2 37 ABG pO2 76 L ABG HCO3 25 H ABG O2 Saturation 96.0 H ABG Base Excess 0.7 Andrew Test Pos Barometric Pressure 734.2 Oxygen Given ROOM AIR POC Sodium Sodium POC Potassium Potassium POC Chloride Chloride Carbon Dioxide POC Total CO2 Anion Gap POC Anion Gap POC BUN BUN Creatinine POC Creatinine Est Cr Clr Drug Dosing Est GFR ( Amer) Est GFR (Non-Af Amer) BUN/Creatinine Ratio Glucose POC Glucose POC Glucose (other) Osmolality POC Lactic Acid Dewayne Lactate Calcium POC Ioniz Calcium Nicolas Total Bilirubin AST ALT Alkaline Phosphatase Total Creatine Kinase Troponin I Total Protein Albumin Globulin Albumin/Globulin Ratio Triglycerides Cholesterol LDL Cholesterol, Calc VLDL Cholesterol, Calc HDL Cholesterol Cholesterol/HDL Ratio Lipase Beta-Hydroxybutyric Acd Procalcitonin Urine Color Yellow Urine Appearance Clear Urine pH 6.5 Ur Specific Quinn 1.008 Urine Protein Trace H Urine Glucose (UA) 1+ H Urine Ketones Negative Urine Blood 2+ H Urine Nitrite Negative Urine Bilirubin Negative Urine Urobilinogen Negative Ur Leukocyte Esterase Negative Urine WBC (Auto) 1-5 Urine RBC (Auto) 0-4 U Hyaline Cast (Auto) 1-5 U Epithel Cells (Auto) 10-20 H Urine Bacteria (Auto) Negative Urine Osmolality Ur Random Creatinine Ur Random Sodium Ur Random Potassium Ur Random Chloride Urine Opiates Screen Neg Ur Methadone, Qual Neg Urine Barbiturates Neg Ur Phencyclidine (PCP) Neg U Amphetamin/Meth Scrn Neg MDMA (Ecstasy) Screen Neg U Benzodiazepines Scrn Neg Ur Cocaine Metabolite Neg U Marijuana (THC) Screen Neg Ethylene Glycol Volat Analys Perform On Ethyl Alcohol mg/dL Methyl Alcohol Level Anaplasma Smear A. phagocytophilum DNA Lyme Disease IgG Ab Lyme IgG (Western Blot) Lyme IgG 18 kDa Band Lyme IgG 23 kDa Band Lyme IgG 28 kDa Band Lyme IgG 30 kDa Band Lyme IgG 39 kDa Band Lyme IgG 41 kDa Band Lyme IgG 45 kDa Band Lyme IgG 58 kDa Band Lyme IgG 66 kDa Band Lyme IgG 93 kDa Band Lyme IgM Ab (WB) Lyme Disease IgM Ab Lyme IgM 23 kDa Band Lyme IgM 39 kDa Band Lyme IgM 41 kDa Band COVID-19 Eval Order SARS-CoV-2 (PCR) 10/01/20 10/01/20 10/01/20 12:08 12:20 14:00 WBC RBC Hgb POC Hgb Hct POC Hct MCV MCH MCHC RDW Std Deviation RDW Coeff of Desiree Plt Count MPV Immature Gran % (Auto) Neut % (Auto) Lymph % (Auto) [place] % (Auto) Eos % (Auto) Baso % (Auto) Neut # (Auto) Lymph # (Auto) [place] # (Auto) Eos # (Auto) Baso # (Auto) Immature Gran # (Auto) PT INR APTT PTT Ratio D-Dimer ABG pH ABG pCO2 ABG pO2 ABG HCO3 ABG O2 Saturation ABG Base Excess Andrew Test Barometric Pressure Oxygen Given POC Sodium Sodium POC Potassium Potassium POC Chloride Chloride Carbon Dioxide POC Total CO2 Anion Gap POC Anion Gap POC BUN BUN Creatinine POC Creatinine Est Cr Clr Drug Dosing Est GFR ( Amer) Est GFR (Non-Af Amer) BUN/Creatinine Ratio Glucose POC Glucose POC Glucose (other) Osmolality POC Lactic Acid Dewayne 3.85 H Lactate Calcium POC Ioniz Calcium Nicolas Total Bilirubin AST ALT Alkaline Phosphatase Total Creatine Kinase Troponin I Total Protein Albumin Globulin Albumin/Globulin Ratio Triglycerides Cholesterol LDL Cholesterol, Calc VLDL Cholesterol, Calc HDL Cholesterol Cholesterol/HDL Ratio Lipase Beta-Hydroxybutyric Acd Procalcitonin Urine Color Urine Appearance Urine pH Ur Specific Quinn Urine Protein Urine Glucose (UA) Urine Ketones Urine Blood Urine Nitrite Urine Bilirubin Urine Urobilinogen Ur Leukocyte Esterase Urine WBC (Auto) Urine RBC (Auto) U Hyaline Cast (Auto) U Epithel Cells (Auto) Urine Bacteria (Auto) Urine Osmolality 238 L Ur Random Creatinine Ur Random Sodium Ur Random Potassium Ur Random Chloride Urine Opiates Screen Ur Methadone, Qual Urine Barbiturates Ur Phencyclidine (PCP) U Amphetamin/Meth Scrn MDMA (Ecstasy) Screen U Benzodiazepines Scrn Ur Cocaine Metabolite U Marijuana (THC) Screen Ethylene Glycol Pending Volat Analys Perform On Ethyl Alcohol mg/dL Methyl Alcohol Level Anaplasma Smear A. phagocytophilum DNA Lyme Disease IgG Ab Lyme IgG (Western Blot) Lyme IgG 18 kDa Band Lyme IgG 23 kDa Band Lyme IgG 28 kDa Band Lyme IgG 30 kDa Band Lyme IgG 39 kDa Band Lyme IgG 41 kDa Band Lyme IgG 45 kDa Band Lyme IgG 58 kDa Band Lyme IgG 66 kDa Band Lyme IgG 93 kDa Band Lyme IgM Ab (WB) Lyme Disease IgM Ab Lyme IgM 23 kDa Band Lyme IgM 39 kDa Band Lyme IgM 41 kDa Band COVID-19 Eval Order SARS-CoV-2 (PCR) 10/01/20 10/01/20 10/01/20 14:00 14:42 14:42 WBC RBC Hgb POC Hgb Hct POC Hct MCV MCH MCHC RDW Std Deviation RDW Coeff of Desiree Plt Count MPV Immature Gran % (Auto) Neut % (Auto) Lymph % (Auto) [place] % (Auto) Eos % (Auto) Baso % (Auto) Neut # (Auto) Lymph # (Auto) [place] # (Auto) Eos # (Auto) Baso # (Auto) Immature Gran # (Auto) PT INR APTT PTT Ratio D-Dimer ABG pH ABG pCO2 ABG pO2 ABG HCO3 ABG O2 Saturation ABG Base Excess Anrdew Test Barometric Pressure Oxygen Given POC Sodium Sodium 122 L D POC Potassium Potassium 2.9 L D POC Chloride Chloride 85 L Carbon Dioxide 25 POC Total CO2 Anion Gap 12.0 H POC Anion Gap POC BUN BUN 36 H Creatinine 5.59 H* D POC Creatinine Est Cr Clr Drug Dosing 23.0 Est GFR ( Amer) 13.9 Est GFR (Non-Af Amer) 12.0 BUN/Creatinine Ratio 6.4 L Glucose 107 H POC Glucose POC Glucose (other) Osmolality POC Lactic Acid Dewayne Lactate Calcium 9.0 D POC Ioniz Calcium Nicolas Total Bilirubin AST ALT Alkaline Phosphatase Total Creatine Kinase 228 Troponin I Total Protein Albumin Globulin Albumin/Globulin Ratio Triglycerides 2029 H Cholesterol 272 H LDL Cholesterol, Calc VLDL Cholesterol, Calc HDL Cholesterol 18 Cholesterol/HDL Ratio 15 Lipase Beta-Hydroxybutyric Acd Pending Procalcitonin Urine Color Urine Appearance Urine pH Ur Specific Quinn Urine Protein Urine Glucose (UA) Urine Ketones Urine Blood Urine Nitrite Urine Bilirubin Urine Urobilinogen Ur Leukocyte Esterase Urine WBC (Auto) Urine RBC (Auto) U Hyaline Cast (Auto) U Epithel Cells (Auto) Urine Bacteria (Auto) Urine Osmolality Ur Random Creatinine 38.4 Ur Random Sodium 40 Ur Random Potassium 13.8 Ur Random Chloride 36 Urine Opiates Screen Ur Methadone, Qual Urine Barbiturates Ur Phencyclidine (PCP) U Amphetamin/Meth Scrn MDMA (Ecstasy) Screen U Benzodiazepines Scrn Ur Cocaine Metabolite U Marijuana (THC) Screen Ethylene Glycol Volat Analys Perform On Pending Ethyl Alcohol mg/dL Methyl Alcohol Level Pending Anaplasma Smear A. phagocytophilum DNA Lyme Disease IgG Ab Lyme IgG (Western Blot) Lyme IgG 18 kDa Band Lyme IgG 23 kDa Band Lyme IgG 28 kDa Band Lyme IgG 30 kDa Band Lyme IgG 39 kDa Band Lyme IgG 41 kDa Band Lyme IgG 45 kDa Band Lyme IgG 58 kDa Band Lyme IgG 66 kDa Band Lyme IgG 93 kDa Band Lyme IgM Ab (WB) Lyme Disease IgM Ab Lyme IgM 23 kDa Band Lyme IgM 39 kDa Band Lyme IgM 41 kDa Band COVID-19 Eval Order SARS-CoV-2 (PCR) 10/01/20 15:50 WBC RBC Hgb POC Hgb Hct POC Hct MCV MCH MCHC RDW Std Deviation RDW Coeff of Desiree Plt Count MPV Immature Gran % (Auto) Neut % (Auto) Lymph % (Auto) [place] % (Auto) Eos % (Auto) Baso % (Auto) Neut # (Auto) Lymph # (Auto) [place] # (Auto) Eos # (Auto) Baso # (Auto) Immature Gran # (Auto) PT INR APTT PTT Ratio D-Dimer ABG pH ABG pCO2 ABG pO2 ABG HCO3 ABG O2 Saturation ABG Base Excess Andrew Test Barometric Pressure Oxygen Given POC Sodium Sodium POC Potassium Potassium POC Chloride Chloride Carbon Dioxide POC Total CO2 Anion Gap POC Anion Gap POC BUN BUN Creatinine POC Creatinine Est Cr Clr Drug Dosing Est GFR ( Amer) Est GFR (Non-Af Amer) BUN/Creatinine Ratio Glucose POC Glucose 103 H POC Glucose (other) Osmolality POC Lactic Acid Dewayne Lactate Calcium POC Ioniz Calcium Nicolas Total Bilirubin AST ALT Alkaline Phosphatase Total Creatine Kinase Troponin I Total Protein Albumin Globulin Albumin/Globulin Ratio Triglycerides Cholesterol LDL Cholesterol, Calc VLDL Cholesterol, Calc HDL Cholesterol Cholesterol/HDL Ratio Lipase Beta-Hydroxybutyric Acd Procalcitonin Urine Color Urine Appearance Urine pH Ur Specific Quinn Urine Protein Urine Glucose (UA) Urine Ketones Urine Blood Urine Nitrite Urine Bilirubin Urine Urobilinogen Ur Leukocyte Esterase Urine WBC (Auto) Urine RBC (Auto) U Hyaline Cast (Auto) U Epithel Cells (Auto) Urine Bacteria (Auto) Urine Osmolality Ur Random Creatinine Ur Random Sodium Ur Random Potassium Ur Random Chloride Urine Opiates Screen Ur Methadone, Qual Urine Barbiturates Ur Phencyclidine (PCP) U Amphetamin/Meth Scrn MDMA (Ecstasy) Screen U Benzodiazepines Scrn Ur Cocaine Metabolite U Marijuana (THC) Screen Ethylene Glycol Volat Analys Perform On Ethyl Alcohol mg/dL Methyl Alcohol Level Anaplasma Smear A. phagocytophilum DNA Lyme Disease IgG Ab Lyme IgG (Western Blot) Lyme IgG 18 kDa Band Lyme IgG 23 kDa Band Lyme IgG 28 kDa Band Lyme IgG 30 kDa Band Lyme IgG 39 kDa Band Lyme IgG 41 kDa Band Lyme IgG 45 kDa Band Lyme IgG 58 kDa Band Lyme IgG 66 kDa Band Lyme IgG 93 kDa Band Lyme IgM Ab (WB) Lyme Disease IgM Ab Lyme IgM 23 kDa Band Lyme IgM 39 kDa Band Lyme IgM 41 kDa Band COVID-19 Eval Order SARS-CoV-2 (PCR) PG Care Time/CCT Total # of Minutes Spent Total Time Spent with Patient: Total time spent is greater than 50% in coordination of care (as documented) at patient's floor/unit and/or counseling patient: Coding Level of Care Code 48177 Inpt Consult Level 5 Diagnoses Acute renal failure N17.9 High serum osmolar gap R74.8 Septic shock A41.9; R65.21 Acute hyponatremia E87.1
[2020-10-01 15:30] LABS: BUN Creatinine Ratio 6.4 (10-20); Est GFR (African American) 13.9 ml/min; Potassium 2.9 mmol/L (3.5-5.1)
[2020-10-01] MEDS ORDERED: FOMEPIZOLE IV STA (15:44)
[2020-10-01] MEDS ORDERED: ATIVAN IV ALCOHOL WITHDRAWL IV PRN (15:45)
[2020-10-01] MEDS ORDERED: INSULIN REGULAR 250 UNITS in SODIUM CHLORIDE 0.9% 247.5 ML IV SCH (15:45)
[2020-10-01] MEDS ORDERED: ICU PROTOCOL FOR HYPERGLYCEMIA PRN (15:45)
[2020-10-01] MEDS ORDERED: LORazepam 1 MG/2 ML VIAL IV PRN (15:45)
[2020-10-01 16:06] LABS: Beta-Hydroxybutyrate 1.27 mg/dl (0.2-2.81)
[2020-10-01 16:23] LABS: INR 1.1 (0.9-1.1); Prothrombin Time 10.9 Seconds (9.0-12.0)
[2020-10-01] MEDS ORDERED: INSULIN PROTOCOL GOAL RANGE ONE (16:30)
[2020-10-01] MEDS ORDERED: DOXYCYCLINE HYCLATE 100 MG in DEXTROSE 5% 100 ML IV SCH (16:30)
[2020-10-01] MEDS ORDERED: SODIUM CHLORIDE 0.9% IV SCH (16:30)
[2020-10-01] MEDS ORDERED: FOMEPIZOLE IV SCH (16:30)
[2020-10-01] MEDS: THIAMINE HCL 100 MG TAB PO SCH (16:57)
[2020-10-01] MEDS: FOLIC ACID 1 MG in SYRINGE 9.8 ML IV SCH (16:59)
[2020-10-01] MEDS: HEPARIN SOD 5,000 UNIT/0.5 ML VIAL SQ SCH ×2 (16:59→20:53)
[2020-10-01] MEDS ORDERED: POTASSIUM CHLORIDE CRTAB 20 MEQ TABCR PO STA ×2 (17:14→19:51)
[2020-10-01] MEDS: DOXYCYCLINE HYCLATE 100 MG in DEXTROSE 5% 100 ML IV SCH (17:41)
[2020-10-01] MEDS ORDERED: ICU ELECTROLYTE REPLACEMENT PROTOCOL SCH (18:00)
[2020-10-01 18:27] LABS: Base Excess VBG 2.8 mEq/L; Oxygen Saturation VBG 64.3 %; pH VBG 7.43 (7.36-7.41)
[2020-10-01 18:41] LABS: Albumin Globulin Ratio 0.7 (0.9-2); Albumin Level 2.6 gm/dl (3.4-5.0); BUN Creatinine Ratio 6.3 (10-20); Bilirubin,Total 2.6 mg/dl (0.2-1); Calcium 9.1 mg/dl (8.5-10.1); Creatinine Clr Calc Pharmacy 23.3 ml/min; Est GFR (African American) 14.1 ml/min; Est GFR (Non-African American) 12.1 ml/min; Globulin 3.7 gm/dl (2.5-4.0); Potassium 3.2 mmol/L (3.5-5.1); Total Protein 6.3 gm/dl (6.4-8.2)
[2020-10-01] MEDS ORDERED: NORMOSOL-R 1,000 ML IV SCH ×2 (19:00)
[2020-10-01 19:07] LABS: Magnesium 1.5 mg/dl (1.8-2.4)
--- NOTE | 2020-10-01 19:47 | Critical Care Consultation ---
Date of Consultation October 01, 2020 Assessment & Plan (1) Acute hyponatremia: Impression: 35-year-old male presents to the ICU with acute hyponatremia, BESSIE, and severe electrolyte abnormalities Neuro - Alcohol abusepatient reports drinking 4 to 5 glasses of whiskey per day, which he states is significantly less and then he was previously drinking in the recent months. He does report previous tremors with abstinence from alcohol. -Mild elevation of LFTs and hepatic steatosis noted on CT abdomen pelvis consistent with chronic alcohol abuse. He is also had positive EtOH levels on each admission over the past year. -Prior history of polysubstance abuse and is now on Suboxone. UDS negative thus far. Continue Suboxone -We will place on ALLEY scale with Ativan as needed -Received banana bag in the ED. Continue with thiamine, folic acid, multivitamin -We will monitor closely for signs of withdrawal Cardiac - Tachycardiapatient presented to the ER with heart rate in 140s, this is also noted on previous ER visit in August -Suspect this likely multifactorial in the setting of sepsis/severe dehydration -Troponin negative, EKG with sinus tachycardia and age indeterminate inferior infarct -We will obtain echo in a.m., no prior study -Daily EKG -Continue with fluid resuscitation -Continuous monitoring on telemetry Respiratory - Currently maintaining oxygen saturations on room air. No respiratory distress. CT chest: Moderate left lower lobe and mild right upper lobe opacity suggestive of pneumonia See ID management below GI - N.p.o. Congenital bowel malrotation noted on CT abdomen without evidence of bowel obstruction RENAL/LYTES - BESSIE-improving following fluid resuscitation. Initial creatinine 6.96 now 5.55 -No previous history of renal disease and normal creatinine on last admission -CT abdomen and pelvis: Multiple bilateral renal lesions noted, no hydronephrosis -Nephrology followingsuspicious for ATN related to hypotension in the setting of VICTOR M inhibitor therapy -CPK unremarkable -No indication for hemodialysis at this time High serum osmolar gapimproving. Patient with elevated lactate, BESSIE and ethanol ingestion -Poison control contacted and patient being tested for ethylene glycol, methanol, propylene glycol, isopropyl alcohol. Will follow up -Was started on Fomepazole until results obtained -No severe acidosis at this time and no indication for HD as of now -Monitor frequent BMPs and VBG's Acute hyponatremiaserum osmolality 278 -Goal correction 8 mEq per 24 hours -Trend BMPs every 6 and adjust IV fluids as necessary Severe electrolyte abnormalitiesimproving with repletion. Trend BMPs and replete as indicated - Foleystrict I's and O's ENDO - No history of diabetes or thyroid disease ICU hyperglycemic protocol HEME - H&H stable, monitor routine CBCs ID - Sepsis?Likely pulmonary source considering bilateral infiltrate seen on chest imaging. He was recently seen in the ER and placed on oral antibiotics -Elevated WBC, pro calcitonin and lactate consistent with sepsis. No evidence of septic shock at this time -Blood cultures pending, UA unremarkable -COVID-19 negative -Nasal MRSA negative -Lyme disease inconclusive, Western blot pending -Continue ceftriaxone, doxycycline LINES/IV ACCESS - Central venous catheter DVT PROPHYLAXIS - SCDs I have personally spent 60 minutes of critical care time in the direct management of this patient. This is a life/limb threatening event. This includes time spent evaluating patient, direct bedside care, chart review, placing orders, interpretation of diagnostic studies, discussion with consultants, patient, and family members, as well as other required patient management activities. This time is exclusive of all separately billable procedures, and teaching time and separate from and in addition to any other critical care service time. Thank you for allowing us to participate in the care of this patient. Please refer to my attending physician's documentation for any further recommendations. (2) Bilateral pneumonia: (3) Acute renal failure: (4) Sepsis: (5) Lactic acidosis: (6) Acute hypokalemia: (7) High serum osmolar gap: (8) Alcohol use: (9) HTN (hypertension): History of Present Illness Attending Physician: Tashi Apple History of Present Illness Patient is a 35-year-old male who presented to the emergency department with complaints of shortness of breath, fatigue and body aches. He has a past medical history HTN, alcohol abuse, drug abuse (on Suboxone). He was recently seen 1 month ago in the emergency department but refused administration and was discharged with oral antibiotics for bilateral lower lobe infiltrates. Patient was noted to have BESSIE with elevated creatinine of 6.96 which was normal on his last lab work in August, high anion gap metabolic acidosis, sodium 117, lactate of 3.2, pro calcitonin elevated, and severe electrolyte abnormalities. He received 1 L of NSS and 1 L banana bag in the ER. Patient denies ingestion of chemical substances and only reports drinking 4-5 drinks per day which he states is significantly less than what he was drinking previously. EtOH 29 on admission and UDS negative thus far. Poison control was contacted and recommended testing for ethylene glycol, methanol, propylene glycol, isopropyl alcohol which are pending, and patient started on fomepizole. Nephrology following and no recommendations for hemodialysis at this time. On exam patient is alert and oriented. He expresses multiple complaints and generalized pain which is been ongoing for several months, shortness of breath over the past month, and diarrhea with last occurrence yesterday morning. He does have a productive cough and denies hemoptysis. He denies headache, dizziness, sore throat, chest pain, palpitations, nausea or vomiting, abdominal pain. Patient admitted to the ICU for further management at this time. Allergies Allergy/AdvReac Type Severity Reaction Status Date / Time No Known Allergies Allergy Unverified 10/01/20 09:46 Home Medications Medication Instructions Recorded Confirmed Type lisinopril 5 mg tablet 5 mg PO DAILY #30 tab 02/17/20 10/01/20 Rx buprenorphine 8 mg-naloxone 2 mg 1 tab SUBLINGUAL BID 09/04/20 10/01/20 History sublingual tablet Patient History Medical History Alcohol use Narcotic abuse Surgical History No pertinent past surgical history Social History Smoking Status: Current every day smoker Tobacco Type: Cigarettes and E-cigarettes / Vaping Hx Alcohol Use: Yes Alcohol type: hard liquor Hx Substance Use: No Preferred Language: Amharic Communication Ability: Effective Beliefs That Will Affect Care: None Current Living Situation: Alone Feels Safe at Home: Yes Assistive Devices: None Review of Systems Review of Systems: All systems reviewed & are unremarkable except as noted in HPI & below Physical Exam Constitutional: + obese and cooperative; no acute distress Eyes: PERRL, conjunctivae normal, anicteric sclerae ENMT: external ear and nose normal, oropharynx normal Neck: trachea midline, no thyromegaly Respiratory: Rhonchi auscultated bilaterally, productive cough, symmetrical chest wall movement, nonlabored breathing Cardiovascular: Tachycardia, S1-S2 auscultated, no chest pain, no edema, no JVD, Gastrointestinal (Abdomen): normal bowel sounds, soft, nontender, no hepatosplenomegaly Musculoskeletal: no cyanosis or clubbing, extremities motor strength 5/5 Skin: no rashes, warm and dry Neurologic: PERRL, EOMI, accommodation nl, no face palsy, no dysarthria Psychiatric: A+Ox3, euthymic affect Genitourinary: Indwelling Griffin catheter Results & Data Results & Data ([facility]) Vital Signs (Past 12 Hours) Vital Signs Temp Pulse Pulse Resp BP BP Pulse Ox 10/01/20 17:46 143 H 13 97 10/01/20 16:45 127 H 18 120/74 97 10/01/20 15:58 36.7 C 126 H 22 133/80 98 10/01/20 15:45 125 H 10/01/20 15:44 128 H 19 10/01/20 15:30 128 H 21 107/66 10/01/20 15:15 128 H 19 106/50 L 10/01/20 15:00 129 H 20 99/53 L 10/01/20 14:45 133 H 24 107/56 L 10/01/20 14:30 130 H 20 96/49 L 97 10/01/20 14:16 132/62 97 10/01/20 13:28 130 H 20 97/47 L 98 10/01/20 12:51 133 H 13 10/01/20 12:15 135 H 111/64 97 10/01/20 12:00 128 H 19 111/61 99 10/01/20 11:45 125 H 17 121/62 98 10/01/20 11:31 130 H 18 82/61 L 98 10/01/20 11:00 121 H 21 130/58 L 98 10/01/20 10:30 120 H 18 142/88 H 99 10/01/20 10:04 118 H 24 112/54 L 100 10/01/20 10:00 118 H 21 72/54 L 96 10/01/20 09:30 123 H 24 76/50 L 96 10/01/20 09:20 100 10/01/20 09:03 130 H 22 113/59 L 100 10/01/20 08:56 36.4 C L 139 H 32 H 83/52 L 98 Coding Level of Care Code Critical Care 1st 30-74 mins Diagnoses Bilateral pneumonia J18.9 Acute renal failure N17.9 Acute hyponatremia E87.1 Sepsis A41.9 Lactic acidosis E87.2 Acute hypokalemia E87.6 High serum osmolar gap R74.8 Alcohol use Z72.89 HTN (hypertension) I10
[2020-10-01] MEDS: MAGNESIUM SULFATE / D5W 1 GM/100 ML BAG IV SCH ×2 (20:52→22:04)
[2020-10-01] MEDS: LORazepam 2 MG/4 ML VIAL IV PRN (20:53)
[2020-10-01] MEDS: BUPRENORPHINE/NALOXONE 8/2 MG TAB SL SCH (20:53)
[2020-10-01 22:12] LABS: BUN Creatinine Ratio 6.1 (10-20); Calcium 8.8 mg/dl (8.5-10.1); Creatinine Clr Calc Pharmacy 24.6 ml/min; Potassium 3.4 mmol/L (3.5-5.1)
[2020-10-01] MEDS ORDERED: POTASSIUM CHLORIDE 20 MEQ/15 ML UDC PO STA (22:26)
[2020-10-01 22:56] LABS: Thyroid Stimulating Hormone 0.739 uIu/ml (0.300-4.500)
[2020-10-01] MEDS: SODIUM CHLORIDE 0.45 % 1,000 ML IV SCH (23:22)
[2020-10-02] MEDS: MAGNESIUM SULFATE / D5W 1 GM/100 ML BAG IV SCH (00:18)
[2020-10-02 00:46] LABS: Base Excess VBG 3.8 mEq/L; Oxygen Saturation VBG 69.2 %; pH VBG 7.44 (7.36-7.41)
[2020-10-02 01:17] LABS: Albumin Globulin Ratio 0.6 (0.9-2); Albumin Level 2.6 gm/dl (3.4-5.0); BUN Creatinine Ratio 6.3 (10-20); Bilirubin,Total 2.4 mg/dl (0.2-1); Calcium 9.1 mg/dl (8.5-10.1); Creatinine Clr Calc Pharmacy 25.6 ml/min; Est GFR (African American) 15.8 ml/min; Est GFR (Non-African American) 13.6 ml/min; Potassium 4.4 mmol/L (3.5-5.1); Total Protein 6.6 gm/dl (6.4-8.2)
[2020-10-02 06:24] LABS: Base Excess VBG 2.2 mEq/L; Oxygen Saturation VBG 74.7 %; pH VBG 7.41 (7.36-7.41)
[2020-10-02] MEDS: DOXYCYCLINE HYCLATE 100 MG in DEXTROSE 5% 100 ML IV SCH ×2 (06:30→17:29)
[2020-10-02] MEDS: FOMEPIZOLE IV SCH ×2 (06:30→17:27)
[2020-10-02] MEDS: SODIUM CHLORIDE 0.9% IV SCH ×2 (06:30→17:27)
[2020-10-02] MEDS: HEPARIN SOD 5,000 UNIT/0.5 ML VIAL SQ SCH ×3 (06:31→20:52)
[2020-10-02 06:56] LABS: Albumin Level 2.6 gm/dl (3.4-5.0); BUN Creatinine Ratio 6.5 (10-20); Bilirubin,Total 2.6 mg/dl (0.2-1); Calcium 8.8 mg/dl (8.5-10.1); Est GFR (African American) 18.4 ml/min; Est GFR (Non-African American) 15.9 ml/min; Magnesium 2.5 mg/dl (1.8-2.4); Potassium 3.9 mmol/L (3.5-5.1); Total Protein 6.6 gm/dl (6.4-8.2)
[2020-10-02 06:57] LABS: Albumin Globulin Ratio 0.7 (0.9-2); Albumin Level 2.6 gm/dl (3.4-5.0); BUN Creatinine Ratio 6.6 (10-20); Bilirubin,Total 2.6 mg/dl (0.2-1); Calcium 8.7 mg/dl (8.5-10.1); Creatinine Clr Calc Pharmacy 29.6 ml/min; Est GFR (African American) 18.8 ml/min; Est GFR (Non-African American) 16.3 ml/min; Globulin 3.9 gm/dl (2.5-4.0); Potassium 3.9 mmol/L (3.5-5.1); Total Protein 6.5 gm/dl (6.4-8.2)
[2020-10-02 06:58] LABS: Bilirubin Direct 1.9 mg/dl (0-0.2)
[2020-10-02] MEDS ORDERED: DEXTROSE 5% 500 ML IV ONE (07:06)
[2020-10-02] MEDS ORDERED: POTASSIUM PHOS 3 MMOL/1 ML INFUSION IV STA (07:07)
[2020-10-02] MEDS ORDERED: POTASSIUM PHOSPHATE 9 MMOL in SODIUM CHLORIDE 0.9% 250 ML IV ONE (07:15)
[2020-10-02] MEDS: SODIUM CHLORIDE 0.45 % 1,000 ML IV SCH ×3 (07:35→20:58)
[2020-10-02 07:43] LABS: Estimated Average Glucose 111 mg/dl; Hemoglobin A1C 5.5 % (4.5-5.6)
[2020-10-02] MEDS: LORazepam 2 MG/4 ML VIAL IV PRN (07:49)
[2020-10-02] MEDS: BUPRENORPHINE/NALOXONE 8/2 MG TAB SL SCH ×2 (08:01→20:49)
[2020-10-02] MEDS: THIAMINE HCL 100 MG TAB PO SCH (08:01)
[2020-10-02] MEDS: MULTIVITAMIN TAB PO SCH (08:01)
[2020-10-02] MEDS: FOLIC ACID 1 MG in SYRINGE 9.8 ML IV SCH (08:01)
--- NOTE | 2020-10-02 08:48 | Critical Care Progress Note ---
Date of Service October 02, 2020 Assessment & Plan (1) Acute hyponatremia: Plan: Patient discussed with Dr. Saravia and bedside nurse. Patient will be discussed at bedside rounds. Impression: 35-year-old male presents to the ICU with acute hyponatremia, BESSIE, and severe electrolyte abnormalities Neuro - Alcohol abusepatient reports drinking 4 to 5 shots of fireball per day. Continue alcohol withdrawal protocol. Continue folic acid, thiamine and multivitamin. Cardiac - Tachycardiapatient presented to the ER with heart rate in 140s, this is also noted on previous ER visit in August -Suspect this likely multifactorial in the setting of sepsis/severe dehydrati on -Troponin negative, EKG with sinus tachycardia and age indeterminate inferior infarct -We will obtain echo in a.m., no prior study Respiratory - Currently maintaining oxygen saturations on room air. No respiratory distress. CT chest: Moderate left lower lobe and mild right upper lobe opacity suggestive of pneumonia GI - We will start clear diet today. Congenital bowel malrotation noted on CT abdomen without evidence of bowel obstruction. Abdominal ultrasound is benign. He does have severe hyper triglyceridemia. Lipase normal. Repeat triglyceride. RENAL/LYTES - BESSIE-improving following fluid resuscitation. Initial creatinine 6.96 now downtrending. -No previous history of renal disease and normal creatinine on last admission -CT abdomen and pelvis: Multiple bilateral renal lesions noted, no hydronephrosis -Nephrology followingsuspicious for ATN related to hypotension in the setting of VICTOR M inhibitor therapy -CPK unremarkable -No indication for hemodialysis at this time High serum osmolar gapimproving. Patient with elevated lactate, BESSIE and ethanol ingestion -Poison control contacted and patient being tested for ethylene glycol, methanol, propylene glycol, isopropyl alcohol. Will follow up -Was started on Fomepazole until results obtained -No severe acidosis at this time and no indication for HD as of now -Monitor frequent BMPs Acute hyponatremiahold fluids at this time as sodium is rising too quickly. Severe electrolyte abnormalitiesimproving with repletion. Trend BMPs and replete as indicated - Foleystrict I's and O's ENDO - No history of diabetes or thyroid disease ICU hyperglycemic protocol HEME - H&H stable, monitor routine CBCs ID - Sepsis?Likely pulmonary source considering bilateral infiltrate seen on chest imaging. He was recently seen in the ER and placed on oral antibiotics -Elevated WBC, pro calcitonin and lactate consistent with sepsis. No evidence of septic shock at this time -Blood cultures pending, UA unremarkable -COVID-19 negative -Nasal MRSA negative -Lyme disease inconclusive, Western blot pending -Continue ceftriaxone, doxycycline LINES/IV ACCESS - Central venous catheter DVT PROPHYLAXIS - SCDs, Heparin subc (2) Bilateral pneumonia: (3) Acute renal failure: (4) Sepsis: (5) Lactic acidosis: (6) Acute hypokalemia: (7) High serum osmolar gap: (8) Alcohol use: (9) HTN (hypertension): Admission and Anticipated Discharge Date Admission Date: October 01, 2020 Subjective Patient seen and examined this morning. He has lower extremity muscle aches and pains. He notes weakness in his legs for several weeks. He denies any nausea or vomiting this morning, but did note that he had retching yesterday evening. He denies chest pain, fevers or chills. Review of Systems Review of Systems: 12/28 point ROS negative unless noted elsewhere Physical Exam Constitutional: + obese and cooperative; no acute distress Eyes: PERRL, conjunctivae normal, anicteric sclerae ENMT: external ear and nose normal, oropharynx normal Neck: trachea midline, no thyromegaly Respiratory: Rhonchi auscultated bilaterally, productive cough, symmetrical chest wall movement, nonlabored breathing Cardiovascular: Tachycardia, S1-S2 auscultated, no chest pain, no edema, no JVD, Gastrointestinal (Abdomen): normal bowel sounds, soft, nontender, no hepatosplenomegaly Musculoskeletal: no cyanosis or clubbing, extremities motor strength 5/5 Skin: no rashes, warm and dry Neurologic: PERRL, EOMI, accommodation nl, no face palsy, no dysarthria Psychiatric: A+Ox3, euthymic affect Genitourinary: Indwelling Griffin catheter Results & Data Results & Data ([facility]) Vital Signs (Past 12 Hours) Vital Signs Temp Pulse Resp BP Pulse Ox 10/02/20 07:58 98.4 F 10/02/20 07:41 99.1 F 132 H 17 129/97 95 10/02/20 05:46 99.3 F 136 H 20 133/64 95 10/02/20 04:46 99.0 F 135 H 20 143/81 H 94 10/02/20 03:46 99.0 F 132 H 19 97/70 L 95 10/02/20 01:45 99.1 F 140 H 19 120/64 95 10/02/20 00:45 99.1 F 137 H 25 H 104/50 L 96 10/01/20 23:45 99.5 F 139 H 21 113/50 L 95 10/01/20 22:45 99.3 F 139 H 23 134/67 94 10/01/20 21:45 99.3 F 144 H 22 111/56 L 95 10/01/20 20:46 99.3 F 146 H 23 120/68 98 Coding Level of Care Code 99726 Subseq Hosp Care Lvl 3 Diagnoses Acute hyponatremia E87.1 Bilateral pneumonia J18.9 Acute renal failure N17.9 Sepsis A41.9 Lactic acidosis E87.2 Acute hypokalemia E87.6 High serum osmolar gap R74.8 Alcohol use Z72.89 HTN (hypertension) I10
--- NOTE | 2020-10-02 08:55 | Ultrasound Report ---
ULTRASOUND RIGHT UPPER QUADRANT ABDOMEN CLINICAL HISTORY: Elevated hepatic transaminases. COMPARISON STUDY: Abdominal CT dated 10/01/2020 TECHNIQUE: Real-time, grayscale, and color flow sonography of the right upper quadrant of the abdomen was performed. Images are reviewed in the transverse and longitudinal planes. FINDINGS: Liver: The liver is enlarged and demonstrates heterogeneously increased echotexture consistent with s evere hepatic steatosis. Note that this degrades acoustic penetration of the liver. There is no intra hepatic biliary ductal dilatation. The main portal vein is patent. Gallbladder: The gallbladder is normal in appearance. No gallstones are identified. There is no gallb ladder wall thickening or pericholecystic fluid. A sonographic Del Real's sign is reportedly absent. Th e common bile duct measures up to 0.4 cm in diameter. Pancreas: Visualized portions of the pancreatic head and body are normal in appearance. Right kidney: Survey images of the right kidney demonstrate normal size and echotexture. There is no hydronephrosis. A 1.9 cm cyst is noted in the right upper pole. Ascites: None. IMPRESSION: 1. Hepatomegaly and severe hepatic steatosis. 2. No shadowing gallstones are identified. ACT 112: Negative or not required by law. Electronically signed by: Nick Iverson M.D. 10/02/2020 8:54 AM
[2020-10-02] MEDS ORDERED: AZITHROMYCIN 250 MG in DEXTROSE 5% 250 ML IV SCH (09:00)
[2020-10-02] MEDS ORDERED: ENOXAPARIN INJ 40 MG/0.4 ML SYR SQ SCH (09:00)
--- NOTE | 2020-10-02 09:27 | Nephrology Progress Note ---
Date of Service October 02, 2020 Assessment & Plan (1) Acute renal failure: Plan: * BESSIE - suspect ATN related to hypotension in the setting of VICTOR M inhibitor therapy * Cr is trending down following stabilization of BP and patient is nonoliguric * Noncontrast abdominal CT 10/01: no obstruction * CPK level wnl * Muscle cramping likely related to hypophosphatemia. ICU team has ordered KPO4 replacement * No acute indication for HD at this time (2) High serum osmolar gap: Plan: * Admitted w/ osmolar gap 22. Lactic acidosis, BESSIE, ethanol ingestion were likely contributing * Patient remains neurologically intact. He is not acidemic. Toxic alcohol levels are pending (send out lab) * Case discussed w/ [place] [facility] again this morning. Advised to continue Fomepizole and redraw BMP, serum ethanol and serum osmolality this am - order placed in EMR for simultaneous draw * B12, folate, MVI as per ICU team (3) Acute hyponatremia: Plan: * Serum sodium 127. Hold IVF. Continue to monitor PRP * Target is to correct Na 6 - 8 mEq/24 hours (4) Septic shock: Plan: * Chest CT reveals bilateral infiltrates * On IV Azithromycin and Ceftriaxone Admission and Anticipated Discharge Date Admission Date: October 01, 2020 Subjective Mr. Arellano was seen & examined in the ICU this morning. He is A&O x3 and follows commands appropriately. He currently denies fever, angina, dyspnea, nausea or diarrhea. He c/o low back and leg discomfort. Review of Systems Constitutional: + weakness; no fever and no chills Eyes: no worsening vision Ear, Nose, Mouth, Throat: no problem reported Respiratory: + dyspnea; no cough Cardiovascular: + edema; no chest pain and no palpitations Gastrointestinal: no abdominal pain, no nausea, no vomiting and no diarrhea/loose stools Genitourinary: no dysuria, no urinary hesitancy or no hematuria Musculoskeletal: + back pain Neurologic: no dizziness and no confusion Physical Exam Constitutional: + obese and cooperative; not in distress Eyes: PERRL, conjunctivae normal, anicteric sclerae ENMT: external ear and nose normal, oropharynx normal Neck: trachea midline, no thyromegaly Respiratory: normal respiratory effort and able to speak in complete sentences; no respiratory distress Auscultation: + rales (bilaterally) Cardiovascular: Rate/Rhythm: regular rhythm and + tachycardic Extremities: + edema (1+ LE swelling) Gastrointestinal (Abdomen): normal bowel sounds, soft, nontender, no hepatosplenomegaly Musculoskeletal: Extremities: no cyanosis, no clubbing and no petechiae Skin: no rashes, warm and dry Neurologic: awake; not confused Results & Data ([facility]) Vital Signs (Past 12 Hours) Vital Signs Temp Pulse Resp BP Pulse Ox 10/02/20 07:58 36.9 C 10/02/20 07:41 37.3 C 132 H 17 129/97 95 10/02/20 05:46 37.4 C 136 H 20 133/64 95 10/02/20 04:46 37.2 C 135 H 20 143/81 H 94 10/02/20 03:46 37.2 C 132 H 19 97/70 L 95 10/02/20 01:45 37.3 C 140 H 19 120/64 95 10/02/20 00:45 37.3 C 137 H 25 H 104/50 L 96 10/01/20 23:45 37.5 C 139 H 21 113/50 L 95 10/01/20 22:45 37.4 C 139 H 23 134/67 94 10/01/20 21:45 37.4 C 144 H 22 111/56 L 95 Laboratory Results Laboratory Tests 10/01/20 10/01/20 10/01/20 09:20 09:20 09:30 Sodium Potassium Chloride Carbon Dioxide BUN Creatinine Glucose Osmolality Phosphorus Magnesium Total Bilirubin AST ALT Alkaline Phosphatase Total Creatine Kinase Troponin I 0.036 Albumin Triglycerides Cholesterol HDL Cholesterol Cholesterol/HDL Ratio Lipase 202 Procalcitonin 6.71 H TSH Urine Opiates Screen Ur Methadone, Qual Urine Barbiturates Ur Phencyclidine (PCP) U Amphetamin/Meth Scrn MDMA (Ecstasy) Screen U Benzodiazepines Scrn Ur Cocaine Metabolite U Marijuana (THC) Screen Ethylene Glycol Volat Analys Perform On Ethyl Alcohol mg/dL 22.9 H Methyl Alcohol Level 10/01/20 10/01/20 10/01/20 12:08 12:08 14:42 Sodium Potassium Chloride Carbon Dioxide BUN Creatinine Glucose Osmolality Phosphorus Magnesium Total Bilirubin AST ALT Alkaline Phosphatase Total Creatine Kinase Troponin I Albumin Triglycerides Cholesterol HDL Cholesterol Cholesterol/HDL Ratio Lipase Procalcitonin TSH Urine Opiates Screen Neg Ur Methadone, Qual Neg Urine Barbiturates Neg Ur Phencyclidine (PCP) Neg U Amphetamin/Meth Scrn Neg MDMA (Ecstasy) Screen Neg U Benzodiazepines Scrn Neg Ur Cocaine Metabolite Neg U Marijuana (THC) Screen Neg Ethylene Glycol Pending Volat Analys Perform On Pending Ethyl Alcohol mg/dL Methyl Alcohol Level Pending 10/01/20 10/01/20 10/02/20 14:42 21:42 06:12 Sodium Potassium Chloride Carbon Dioxide BUN Creatinine Glucose Osmolality Phosphorus 1.0 L* Magnesium 2.5 H Total Bilirubin AST ALT Alkaline Phosphatase Total Creatine Kinase 228 Troponin I Albumin Triglycerides 2029 H Cholesterol 272 H HDL Cholesterol 18 Cholesterol/HDL Ratio 15 Lipase Procalcitonin TSH 0.739 Urine Opiates Screen Ur Methadone, Qual Urine Barbiturates Ur Phencyclidine (PCP) U Amphetamin/Meth Scrn MDMA (Ecstasy) Screen U Benzodiazepines Scrn Ur Cocaine Metabolite U Marijuana (THC) Screen Ethylene Glycol Volat Analys Perform On Ethyl Alcohol mg/dL Methyl Alcohol Level 10/02/20 10/02/20 06:12 06:12 Sodium 127 L Potassium 3.9 Chloride 91 L Carbon Dioxide 27 BUN 29 H Creatinine 4.36 H Glucose 110 H Osmolality 279 L Phosphorus Magnesium Total Bilirubin 2.6 H AST 127 H ALT 54 Alkaline Phosphatase 233 H Total Creatine Kinase Troponin I Albumin 2.6 L Triglycerides Cholesterol HDL Cholesterol Cholesterol/HDL Ratio Lipase Procalcitonin TSH Urine Opiates Screen Ur Methadone, Qual Urine Barbiturates Ur Phencyclidine (PCP) U Amphetamin/Meth Scrn MDMA (Ecstasy) Screen U Benzodiazepines Scrn Ur Cocaine Metabolite U Marijuana (THC) Screen Ethylene Glycol Volat Analys Perform On Ethyl Alcohol mg/dL Methyl Alcohol Level PG Care Time/CCT Total # of Minutes Spent Total Time Spent with Patient: Total time spent is greater than 50% in coordination of care (as documented) at patient's floor/unit and/or counseling patient: Coding Level of Care Code 40894 Subseq Hosp Care Lvl 3 Diagnoses Acute renal failure N17.9 High serum osmolar gap R74.8 Acute hyponatremia E87.1 Septic shock A41.9; R65.21
[2020-10-02] MEDS: METOPROLOL TARTRATE 25 MG TAB PO SCH ×2 (09:29→20:52)
[2020-10-02 09:42] LABS: BUN Creatinine Ratio 6.7 (10-20); Calcium 8.2 mg/dl (8.5-10.1); Creatinine Clr Calc Pharmacy 31.1 ml/min; Est GFR (Non-African American) 17.3 ml/min; Potassium 3.8 mmol/L (3.5-5.1)
[2020-10-02] MEDS ORDERED: GLUCOSE 40% GEL 15 GM TUBE PO PRN (10:30)
[2020-10-02] MEDS ORDERED: CARBOHYDRATES FOR HYPOGLYCEMIA PO PRN (10:30)
[2020-10-02] MEDS ORDERED: GLUCOSE 10 TABS/TUBE PO PRN (10:30)
[2020-10-02] MEDS ORDERED: POTASSIUM PHOSPHATE 21 MMOL in SODIUM CHLORIDE 0.9% 500 ML IV ONE (10:30)
[2020-10-02] MEDS ORDERED: DEXTROSE 50% 50 ML SYRINGE IV PRN (10:30)
[2020-10-02] MEDS ORDERED: GLUCAGON FOR INJ 1 MG VIAL IM PRN (10:30)
[2020-10-02] MEDS: cefTRIAXone SODIUM 2,000 MG in DEXTROSE 5% 50 ML IV SCH (11:22)
[2020-10-02 11:29] LABS: Base Excess VBG 0.5 mEq/L; Oxygen Saturation VBG 71.9 %; pH VBG 7.37 (7.36-7.41)
[2020-10-02 11:48] LABS: Albumin Globulin Ratio 0.6 (0.9-2); Albumin Level 2.4 gm/dl (3.4-5.0); BUN Creatinine Ratio 6.5 (10-20); Bilirubin,Total 2.1 mg/dl (0.2-1); Calcium 8.1 mg/dl (8.5-10.1); Creatinine Clr Calc Pharmacy 31.7 ml/min; Est GFR (African American) 20.4 ml/min; Est GFR (Non-African American) 17.6 ml/min; Globulin 3.8 gm/dl (2.5-4.0); Potassium 3.9 mmol/L (3.5-5.1); Total Protein 6.2 gm/dl (6.4-8.2)
[2020-10-02] MEDS: INSULIN ASPART 100 UNITS/ML 3 ML PEN SC SCH ×3 (11:57→20:50)
--- NOTE | 2020-10-02 12:06 | XCELERA ---
[id number]
--- NOTE | 2020-10-02 13:19 | Electrocardiogram Report ---
Test Reason : Blood Pressure : / mmHG Vent. Rate : 130 BPM Atrial Rate : 130 BPM P-R Int : 112 ms QRS Dur : 096 ms QT Int : 344 ms P-R-T Axes : 028 075 035 degrees QTc Int : 506 ms Sinus tachycardia Poor R wave progression, consider anterior [place] vs. lead placement vs. LVH Abnormal ECG When compared with ECG of 01-OCT-2020 09:05, No significant change was found Confirmed by Felipe Reyna ([id number]) on 10/02/2020 1:19:18 PM Referred By: REFERRED SELF Confirmed By:Felipe Reyna
--- NOTE | 2020-10-02 14:25 | Hospitalist Progress Note ---
Date of Service October 02, 2020 Assessment & Plan (1) Pneumonia: Plan: Bilateral lobar pneumonia- vaping and smoking history - EOS normal on periphery - Blood cultures: no growth - Continue Rocephin and doxycycline (2) Sepsis: Plan: SIRS 3, qSOFA 2 - due to pneumonia urine and blood cultures negative - Continue volume resuscitation continue in ICU (3) Alcohol use: Plan: AAWS coverage with Ativan - limited options with renal function and hypotension at this time requiring several dose of Ativan daily (4) Lactic acidosis: Plan: Sepsis with hypovolemia and BESSIE - received 1 liter of saline and 1 banana bag in EMD - Continue resuscitation based on urine output and lactate - LR 125 ml per hour - bolus per ICU LA came down appropriately (5) BESSIE (acute kidney injury): Plan: significant injury with Cr > 5 slowly improving with IV fluids avoid nephrotoxins he is non-oliguric - Mixed metabolic acidosis and respiratory alkalosis- Gap is improving with resuscitation nephrology managing (6) High serum osmolar gap: Plan: Ingestion possible- elevated triglycerides with ethyl alcohol on board- likely causing serum > calculated osm serum 286 - osmolar gap 278 Urine OSMO 238 - ethyl ETOH 22.9 - Lactate 3.8 - fomepizole given, will wait for poison control to determine use tomorrow (7) Hyponatremia: Plan: Hypovolemia hyponatremia with ETOH abuse likely, multifocal - Lipids sent with triglyceride 2028- likely adding to the above hyponatremia significantly - Continue with volume resuscitation with LR - or normosol - Continue with potassium replacement as well as this will help - Should improve with potassium replacement and volume replacement- consider changing fluid at NA 123-125 (6-8 mmol correction) (8) Hypokalemia: Plan: Continue with ICU replacement protocol careful with his OL[facility] GROWER - Follow ECG - Both should improve (9) Narcotic abuse: Plan: Cotninue suboxone - ICU for pain control (10) HTN (hypertension): Plan: Hold ARB (11) Hyperglycemia: Plan: Glucose 269 on admission HCO3 25 on ABG, 18 on CO2 serum - PH 7.44 mixed - Continue with resuscitation and glucose control - ICU insulin protocol - Follow HCo3 and response to glucose control sugars improved, monitor for hypoglycemia Admission and Anticipated Discharge Date Admission Date: October 01, 2020 Subjective patient sleeping a lot still, requiring intermittent Ativan, got a dose of Fomepizole reviewed chart appreciate nephrology consultation appreciate critical care management electrolytes replaced Review of Systems Review of Systems: All systems reviewed & are unremarkable except as noted in Subjective Constitutional: + body aches, + fatigue and + weakness; no fever Respiratory: no cough and no dyspnea Cardiovascular: no chest pain and no edema Gastrointestinal: + early satiety; no abdominal pain, no nausea, no vomiting, no constipation and no diarrhea/loose stools Physical Exam Constitutional: well developed, + ill appearing and + obese; no acute distress Neck: trachea midline, no thyromegaly Respiratory: normal respiratory effort, lungs clear to auscultation Cardiovascular: Rate/Rhythm: regular rhythm and + tachycardic Heart Sounds: normal S1 and normal S2; no murmur Vessels: no JVD Extremities: normal capillary refill; no edema Gastrointestinal (Abdomen): normal bowel sounds, soft, nontender, no hepatosplenomegaly Musculoskeletal: no cyanosis or clubbing, extremities motor strength 5/5 Skin: no rashes, warm and dry Neurologic: CN's II-XI intact bilaterally and moves all extremities; no focal motor deficits, + not awake (sleeping a lot) and not confused Psychiatric: Orientation: oriented x 3 and cooperative Results & Data Results & Data ([facility]) Vital Signs (Past 12 Hours) Vital Signs Temp Pulse Resp BP Pulse Ox 10/02/20 12:45 37.3 C 104 H 18 143/87 H 95 10/02/20 11:45 37.4 C 108 H 19 143/88 H 92 10/02/20 10:45 37.5 C 121 H 18 108/71 97 10/02/20 09:45 37.3 C 135 H 18 104/60 95 10/02/20 08:45 37.2 C 134 H 16 133/81 96 10/02/20 08:00 135 H 10/02/20 07:58 36.9 C 10/02/20 07:41 37.3 C 132 H 17 129/97 95 10/02/20 05:46 37.4 C 136 H 20 133/64 95 10/02/20 04:46 37.2 C 135 H 20 143/81 H 94 10/02/20 03:46 37.2 C 132 H 19 97/70 L 95 Laboratory Results Laboratory Results - last 24 hr 10/01/20 10/01/20 10/01/20 10:33 10:33 10:33 PT INR VBG pH VBG pCO2 VBG pO2 VBG HCO3 VBG O2 Saturation VBG Base Excess Barometric Pressure Sodium Potassium Chloride Carbon Dioxide Anion Gap BUN Creatinine Est Cr Clr Drug Dosing Est GFR ( Amer) Est GFR (Non-Af Amer) BUN/Creatinine Ratio Glucose POC Glucose Estimat Average Glucose 111 Hemoglobin A1c 5.5 Osmolality Lactate Calcium Phosphorus Magnesium Total Bilirubin Direct Bilirubin AST ALT Alkaline Phosphatase Total Creatine Kinase Total Protein Albumin Globulin Albumin/Globulin Ratio Triglycerides Cholesterol LDL Cholesterol, Calc VLDL Cholesterol, Calc HDL Cholesterol Cholesterol/HDL Ratio Beta-Hydroxybutyric Acd TSH Specimen Hemolysis Urine Osmolality Ur Random Creatinine Ur Random Sodium Ur Random Potassium Ur Random Chloride Nasal Screen MRSA (PCR) Volat Analys Perform On Ethyl Alcohol mg/dL Methyl Alcohol Level Lyme IgG (Western Blot) Pending Lyme IgG 18 kDa Band Pending Lyme IgG 23 kDa Band Pending Lyme IgG 28 kDa Band Pending Lyme IgG 30 kDa Band Pending Lyme IgG 39 kDa Band Pending Lyme IgG 41 kDa Band Pending Lyme IgG 45 kDa Band Pending Lyme IgG 58 kDa Band Pending Lyme IgG 66 kDa Band Pending Lyme IgG 93 kDa Band Pending Lyme IgM Ab (WB) Pending Lyme Disease IgM Ab Equivocal A Lyme IgM 23 kDa Band Pending Lyme IgM 39 kDa Band Pending Lyme IgM 41 kDa Band Pending Miscellaneous Test Ref Lab Test Result 10/01/20 10/01/20 10/01/20 14:00 14:00 14:42 PT INR VBG pH VBG pCO2 VBG pO2 VBG HCO3 VBG O2 Saturation VBG Base Excess Barometric Pressure Sodium Potassium Chloride Carbon Dioxide Anion Gap BUN Creatinine Est Cr Clr Drug Dosing Est GFR ( Amer) Est GFR (Non-Af Amer) BUN/Creatinine Ratio Glucose POC Glucose Estimat Average Glucose Hemoglobin A1c Osmolality Lactate Calcium Phosphorus Magnesium Total Bilirubin Direct Bilirubin AST ALT Alkaline Phosphatase Total Creatine Kinase Total Protein Albumin Globulin Albumin/Globulin Ratio Triglycerides Cholesterol LDL Cholesterol, Calc VLDL Cholesterol, Calc HDL Cholesterol Cholesterol/HDL Ratio Beta-Hydroxybutyric Acd TSH Specimen Hemolysis Urine Osmolality 238 L Ur Random Creatinine 38.4 Ur Random Sodium 40 Ur Random Potassium 13.8 Ur Random Chloride 36 Nasal Screen MRSA (PCR) Volat Analys Perform On Pending Ethyl Alcohol mg/dL Methyl Alcohol Level Pending Lyme IgG (Western Blot) Lyme IgG 18 kDa Band Lyme IgG 23 kDa Band Lyme IgG 28 kDa Band Lyme IgG 30 kDa Band Lyme IgG 39 kDa Band Lyme IgG 41 kDa Band Lyme IgG 45 kDa Band Lyme IgG 58 kDa Band Lyme IgG 66 kDa Band Lyme IgG 93 kDa Band Lyme IgM Ab (WB) Lyme Disease IgM Ab Lyme IgM 23 kDa Band Lyme IgM 39 kDa Band Lyme IgM 41 kDa Band Miscellaneous Test Ref Lab Test Result 10/01/20 10/01/20 10/01/20 14:42 15:45 15:50 PT INR VBG pH VBG pCO2 VBG pO2 VBG HCO3 VBG O2 Saturation VBG Base Excess Barometric Pressure Sodium 122 L D Potassium 2.9 L D Chloride 85 L Carbon Dioxide 25 Anion Gap 12.0 H BUN 36 H Creatinine 5.59 H* D Est Cr Clr Drug Dosing 23.0 Est GFR ( Amer) 13.9 Est GFR (Non-Af Amer) 12.0 BUN/Creatinine Ratio 6.4 L Glucose 107 H POC Glucose 103 H Estimat Average Glucose Hemoglobin A1c Osmolality Lactate Calcium 9.0 D Phosphorus Magnesium Total Bilirubin Direct Bilirubin AST ALT Alkaline Phosphatase Total Creatine Kinase 228 Total Protein Albumin Globulin Albumin/Globulin Ratio Triglycerides 2029 H Cholesterol 272 H LDL Cholesterol, Calc VLDL Cholesterol, Calc HDL Cholesterol 18 Cholesterol/HDL Ratio 15 Beta-Hydroxybutyric Acd 1.27 TSH Specimen Hemolysis Urine Osmolality Ur Random Creatinine Ur Random Sodium Ur Random Potassium Ur Random Chloride Nasal Screen MRSA (PCR) Negative Volat Analys Perform On Ethyl Alcohol mg/dL Methyl Alcohol Level Lyme IgG (Western Blot) Lyme IgG 18 kDa Band Lyme IgG 23 kDa Band Lyme IgG 28 kDa Band Lyme IgG 30 kDa Band Lyme IgG 39 kDa Band Lyme IgG 41 kDa Band Lyme IgG 45 kDa Band Lyme IgG 58 kDa Band Lyme IgG 66 kDa Band Lyme IgG 93 kDa Band Lyme IgM Ab (WB) Lyme Disease IgM Ab Lyme IgM 23 kDa Band Lyme IgM 39 kDa Band Lyme IgM 41 kDa Band Miscellaneous Test Ref Lab Test Result 10/01/20 10/01/20 10/01/20 15:51 15:51 15:51 PT 10.9 INR 1.1 VBG pH VBG pCO2 VBG pO2 VBG HCO3 VBG O2 Saturation VBG Base Excess Barometric Pressure Sodium Potassium Chloride Carbon Dioxide Anion Gap BUN Creatinine Est Cr Clr Drug Dosing Est GFR ( Amer) Est GFR (Non-Af Amer) BUN/Creatinine Ratio Glucose POC Glucose Estimat Average Glucose Hemoglobin A1c Osmolality Lactate Calcium Phosphorus Magnesium Total Bilirubin Direct Bilirubin AST ALT Alkaline Phosphatase Total Creatine Kinase Total Protein Albumin Globulin Albumin/Globulin Ratio Triglycerides Cholesterol LDL Cholesterol, Calc VLDL Cholesterol, Calc HDL Cholesterol Cholesterol/HDL Ratio Beta-Hydroxybutyric Acd TSH Specimen Hemolysis Urine Osmolality Ur Random Creatinine Ur Random Sodium Ur Random Potassium Ur Random Chloride Nasal Screen MRSA (PCR) Volat Analys Perform On Ethyl Alcohol mg/dL Methyl Alcohol Level Lyme IgG (Western Blot) Lyme IgG 18 kDa Band Lyme IgG 23 kDa Band Lyme IgG 28 kDa Band Lyme IgG 30 kDa Band Lyme IgG 39 kDa Band Lyme IgG 41 kDa Band Lyme IgG 45 kDa Band Lyme IgG 58 kDa Band Lyme IgG 66 kDa Band Lyme IgG 93 kDa Band Lyme IgM Ab (WB) Lyme Disease IgM Ab Lyme IgM 23 kDa Band Lyme IgM 39 kDa Band Lyme IgM 41 kDa Band Miscellaneous Test Pending Ref Lab Test Result Pending 10/01/20 10/01/20 10/01/20 17:59 18:07 18:07 PT INR VBG pH VBG pCO2 VBG pO2 VBG HCO3 VBG O2 Saturation VBG Base Excess Barometric Pressure Sodium 124 L Potassium 3.2 L Chloride 85 L Carbon Dioxide 29 Anion Gap 10.0 BUN 35 H Creatinine 5.55 H* Est Cr Clr Drug Dosing 23.3 Est GFR ( Amer) 14.1 Est GFR (Non-Af Amer) 12.1 BUN/Creatinine Ratio 6.3 L Glucose 102 H POC Glucose 102 H Estimat Average Glucose Hemoglobin A1c Osmolality 278 L Lactate Calcium 9.1 Phosphorus Magnesium 1.5 L Total Bilirubin 2.6 H Direct Bilirubin AST 122 H ALT 54 Alkaline Phosphatase 194 H Total Creatine Kinase Total Protein 6.3 L Albumin 2.6 L Globulin 3.7 Albumin/Globulin Ratio 0.7 L Triglycerides Cholesterol LDL Cholesterol, Calc VLDL Cholesterol, Calc HDL Cholesterol Cholesterol/HDL Ratio Beta-Hydroxybutyric Acd TSH Specimen Hemolysis Urine Osmolality Ur Random Creatinine Ur Random Sodium Ur Random Potassium Ur Random Chloride Nasal Screen MRSA (PCR) Volat Analys Perform On Ethyl Alcohol mg/dL Methyl Alcohol Level Lyme IgG (Western Blot) Lyme IgG 18 kDa Band Lyme IgG 23 kDa Band Lyme IgG 28 kDa Band Lyme IgG 30 kDa Band Lyme IgG 39 kDa Band Lyme IgG 41 kDa Band Lyme IgG 45 kDa Band Lyme IgG 58 kDa Band Lyme IgG 66 kDa Band Lyme IgG 93 kDa Band Lyme IgM Ab (WB) Lyme Disease IgM Ab Lyme IgM 23 kDa Band Lyme IgM 39 kDa Band Lyme IgM 41 kDa Band Miscellaneous Test Ref Lab Test Result 10/01/20 10/01/20 10/01/20 18:08 21:42 21:42 PT INR VBG pH 7.43 H VBG pCO2 43 VBG pO2 33 VBG HCO3 27 VBG O2 Saturation 64.3 VBG Base Excess 2.8 Barometric Pressure 733.4 Sodium 125 L Potassium 3.4 L Chloride 88 L Carbon Dioxide 26 Anion Gap 11.0 BUN 32 H Creatinine 5.26 H* Est Cr Clr Drug Dosing 24.6 Est GFR ( Amer) 15.0 Est GFR (Non-Af Amer) 13.0 BUN/Creatinine Ratio 6.1 L Glucose 111 H POC Glucose Estimat Average Glucose Hemoglobin A1c Osmolality Lactate Cancelled Calcium 8.8 Phosphorus Magnesium Total Bilirubin Direct Bilirubin AST ALT Alkaline Phosphatase Total Creatine Kinase Total Protein Albumin Globulin Albumin/Globulin Ratio Triglycerides Cholesterol LDL Cholesterol, Calc VLDL Cholesterol, Calc HDL Cholesterol Cholesterol/HDL Ratio Beta-Hydroxybutyric Acd TSH 0.739 Specimen Hemolysis Urine Osmolality Ur Random Creatinine Ur Random Sodium Ur Random Potassium Ur Random Chloride Nasal Screen MRSA (PCR) Volat Analys Perform On Ethyl Alcohol mg/dL Methyl Alcohol Level Lyme IgG (Western Blot) Lyme IgG 18 kDa Band Lyme IgG 23 kDa Band Lyme IgG 28 kDa Band Lyme IgG 30 kDa Band Lyme IgG 39 kDa Band Lyme IgG 41 kDa Band Lyme IgG 45 kDa Band Lyme IgG 58 kDa Band Lyme IgG 66 kDa Band Lyme IgG 93 kDa Band Lyme IgM Ab (WB) Lyme Disease IgM Ab Lyme IgM 23 kDa Band Lyme IgM 39 kDa Band Lyme IgM 41 kDa Band Miscellaneous Test Ref Lab Test Result 10/01/20 10/02/20 10/02/20 23:13 00:33 00:33 PT INR VBG pH VBG pCO2 VBG pO2 VBG HCO3 VBG O2 Saturation VBG Base Excess Barometric Pressure Sodium 124 L Potassium 4.4 D Chloride 88 L Carbon Dioxide 27 Anion Gap 9.0 BUN 32 H Creatinine 5.05 H* Est Cr Clr Drug Dosing 25.6 Est GFR ( Amer) 15.8 Est GFR (Non-Af Amer) 13.6 BUN/Creatinine Ratio 6.3 L Glucose 118 H POC Glucose Estimat Average Glucose Hemoglobin A1c Osmolality 277 L Lactate Calcium 9.1 Phosphorus Magnesium Total Bilirubin 2.4 H Direct Bilirubin AST 126 H ALT 58 Alkaline Phosphatase 223 H Total Creatine Kinase Total Protein 6.6 Albumin 2.6 L Globulin 4.0 Albumin/Globulin Ratio 0.6 L Triglycerides Cholesterol LDL Cholesterol, Calc VLDL Cholesterol, Calc HDL Cholesterol Cholesterol/HDL Ratio Beta-Hydroxybutyric Acd TSH Specimen Hemolysis Urine Osmolality Ur Random Creatinine Ur Random Sodium Ur Random Potassium Ur Random Chloride Nasal Screen MRSA (PCR) Volat Analys Perform On Ethyl Alcohol mg/dL Methyl Alcohol Level Lyme IgG (Western Blot) Lyme IgG 18 kDa Band Lyme IgG 23 kDa Band Lyme IgG 28 kDa Band Lyme IgG 30 kDa Band Lyme IgG 39 kDa Band Lyme IgG 41 kDa Band Lyme IgG 45 kDa Band Lyme IgG 58 kDa Band Lyme IgG 66 kDa Band Lyme IgG 93 kDa Band Lyme IgM Ab (WB) Lyme Disease IgM Ab Lyme IgM 23 kDa Band Lyme IgM 39 kDa Band Lyme IgM 41 kDa Band Miscellaneous Test Ref Lab Test Result 10/02/20 10/02/20 10/02/20 00:33 00:38 06:12 PT INR VBG pH 7.44 H VBG pCO2 42 VBG pO2 36 VBG HCO3 28 VBG O2 Saturation 69.2 VBG Base Excess 3.8 Barometric Pressure 734.3 Sodium 125 L Potassium 3.9 Chloride 91 L Carbon Dioxide 27 Anion Gap 7.0 BUN 29 H Creatinine 4.45 H D Est Cr Clr Drug Dosing 29.0 Est GFR ( Amer) 18.4 Est GFR (Non-Af Amer) 15.9 BUN/Creatinine Ratio 6.5 L Glucose 108 H POC Glucose 123 H Estimat Average Glucose Hemoglobin A1c Osmolality Lactate Calcium 8.8 Phosphorus 1.0 L* Magnesium 2.5 H Total Bilirubin 2.6 H Direct Bilirubin 1.9 H AST 126 H ALT 54 Alkaline Phosphatase 233 H Total Creatine Kinase Total Protein 6.6 Albumin 2.6 L Globulin Albumin/Globulin Ratio Triglycerides Cholesterol LDL Cholesterol, Calc VLDL Cholesterol, Calc HDL Cholesterol Cholesterol/HDL Ratio Beta-Hydroxybutyric Acd TSH Specimen Hemolysis Urine Osmolality Ur Random Creatinine Ur Random Sodium Ur Random Potassium Ur Random Chloride Nasal Screen MRSA (PCR) Volat Analys Perform On Ethyl Alcohol mg/dL Methyl Alcohol Level Lyme IgG (Western Blot) Lyme IgG 18 kDa Band Lyme IgG 23 kDa Band Lyme IgG 28 kDa Band Lyme IgG 30 kDa Band Lyme IgG 39 kDa Band Lyme IgG 41 kDa Band Lyme IgG 45 kDa Band Lyme IgG 58 kDa Band Lyme IgG 66 kDa Band Lyme IgG 93 kDa Band Lyme IgM Ab (WB) Lyme Disease IgM Ab Lyme IgM 23 kDa Band Lyme IgM 39 kDa Band Lyme IgM 41 kDa Band Miscellaneous Test Ref Lab Test Result 10/02/20 10/02/20 10/02/20 06:12 06:12 06:12 PT INR VBG pH 7.41 VBG pCO2 44 VBG pO2 40 VBG HCO3 27 VBG O2 Saturation 74.7 VBG Base Excess 2.2 Barometric Pressure 734.0 Sodium 127 L Potassium 3.9 Chloride 91 L Carbon Dioxide 27 Anion Gap 9.0 BUN 29 H Creatinine 4.36 H Est Cr Clr Drug Dosing 29.6 Est GFR ( Amer) 18.8 Est GFR (Non-Af Amer) 16.3 BUN/Creatinine Ratio 6.6 L Glucose 110 H POC Glucose Estimat Average Glucose Hemoglobin A1c Osmolality 279 L Lactate Calcium 8.7 Phosphorus Magnesium Total Bilirubin 2.6 H Direct Bilirubin AST 127 H ALT 54 Alkaline Phosphatase 233 H Total Creatine Kinase Total Protein 6.5 Albumin 2.6 L Globulin 3.9 Albumin/Globulin Ratio 0.7 L Triglycerides Cholesterol LDL Cholesterol, Calc VLDL Cholesterol, Calc HDL Cholesterol Cholesterol/HDL Ratio Beta-Hydroxybutyric Acd TSH Specimen Hemolysis Urine Osmolality Ur Random Creatinine Ur Random Sodium Ur Random Potassium Ur Random Chloride Nasal Screen MRSA (PCR) Volat Analys Perform On Ethyl Alcohol mg/dL Methyl Alcohol Level Lyme IgG (Western Blot) Lyme IgG 18 kDa Band Lyme IgG 23 kDa Band Lyme IgG 28 kDa Band Lyme IgG 30 kDa Band Lyme IgG 39 kDa Band Lyme IgG 41 kDa Band Lyme IgG 45 kDa Band Lyme IgG 58 kDa Band Lyme IgG 66 kDa Band Lyme IgG 93 kDa Band Lyme IgM Ab (WB) Lyme Disease IgM Ab Lyme IgM 23 kDa Band Lyme IgM 39 kDa Band Lyme IgM 41 kDa Band Miscellaneous Test Ref Lab Test Result 10/02/20 10/02/20 10/02/20 08:47 11:05 11:05 PT INR VBG pH VBG pCO2 VBG pO2 VBG HCO3 VBG O2 Saturation VBG Base Excess Barometric Pressure Sodium 125 L 126 L Potassium 3.8 3.9 Chloride 90 L 92 L Carbon Dioxide 27 25 Anion Gap 8.0 9.0 BUN 28 H 26 H Creatinine 4.15 H 4.08 H Est Cr Clr Drug Dosing 31.1 31.7 Est GFR ( Amer) 20.0 20.4 Est GFR (Non-Af Amer) 17.3 17.6 BUN/Creatinine Ratio 6.7 L 6.5 L Glucose 160 H 110 H POC Glucose Estimat Average Glucose Hemoglobin A1c Osmolality 277 L Lactate Calcium 8.2 L 8.1 L Phosphorus Magnesium Total Bilirubin 2.1 H Direct Bilirubin AST 120 H ALT 53 Alkaline Phosphatase 219 H Total Creatine Kinase Total Protein 6.2 L Albumin 2.4 L Globulin 3.8 Albumin/Globulin Ratio 0.6 L Triglycerides 1221 H Cholesterol LDL Cholesterol, Calc VLDL Cholesterol, Calc HDL Cholesterol Cholesterol/HDL Ratio Beta-Hydroxybutyric Acd TSH Specimen Hemolysis Urine Osmolality Ur Random Creatinine Ur Random Sodium Ur Random Potassium Ur Random Chloride Nasal Screen MRSA (PCR) Volat Analys Perform On Ethyl Alcohol mg/dL Methyl Alcohol Level Lyme IgG (Western Blot) Lyme IgG 18 kDa Band Lyme IgG 23 kDa Band Lyme IgG 28 kDa Band Lyme IgG 30 kDa Band Lyme IgG 39 kDa Band Lyme IgG 41 kDa Band Lyme IgG 45 kDa Band Lyme IgG 58 kDa Band Lyme IgG 66 kDa Band Lyme IgG 93 kDa Band Lyme IgM Ab (WB) Lyme Disease IgM Ab Lyme IgM 23 kDa Band Lyme IgM 39 kDa Band Lyme IgM 41 kDa Band Miscellaneous Test Ref Lab Test Result 10/02/20 10/02/20 10/02/20 11:05 11:05 11:21 PT INR VBG pH 7.37 VBG pCO2 46 VBG pO2 39 VBG HCO3 26 VBG O2 Saturation 71.9 VBG Base Excess 0.5 Barometric Pressure 734.0 Sodium Potassium Chloride Carbon Dioxide Anion Gap BUN Creatinine Est Cr Clr Drug Dosing Est GFR ( Amer) Est GFR (Non-Af Amer) BUN/Creatinine Ratio Glucose POC Glucose 117 H Estimat Average Glucose Hemoglobin A1c Osmolality Lactate Calcium Phosphorus Magnesium Total Bilirubin Direct Bilirubin AST ALT Alkaline Phosphatase Total Creatine Kinase Total Protein Albumin Globulin Albumin/Globulin Ratio Triglycerides Cholesterol LDL Cholesterol, Calc VLDL Cholesterol, Calc HDL Cholesterol Cholesterol/HDL Ratio Beta-Hydroxybutyric Acd TSH Specimen Hemolysis Urine Osmolality Ur Random Creatinine Ur Random Sodium Ur Random Potassium Ur Random Chloride Nasal Screen MRSA (PCR) Volat Analys Perform On Ethyl Alcohol mg/dL < 3.0 Methyl Alcohol Level Lyme IgG (Western Blot) Lyme IgG 18 kDa Band Lyme IgG 23 kDa Band Lyme IgG 28 kDa Band Lyme IgG 30 kDa Band Lyme IgG 39 kDa Band Lyme IgG 41 kDa Band Lyme IgG 45 kDa Band Lyme IgG 58 kDa Band Lyme IgG 66 kDa Band Lyme IgG 93 kDa Band Lyme IgM Ab (WB) Lyme Disease IgM Ab Lyme IgM 23 kDa Band Lyme IgM 39 kDa Band Lyme IgM 41 kDa Band Miscellaneous Test Ref Lab Test Result Medications Administered Current Inpatient Medications Buprenorphine/Naloxone (Buprenorphine/Naloxone 8/2 Mg Tab) 1 tab SL BID BRENDA Stop: 10/31/20 20:59 Last Admin: 10/02/20 08:01 Dose: 1 tab Documented by: Dextrose (Dextrose 50% 50 Ml Syringe) 25 - 50 ml IV UD PRN; Protocol PRN Reason: Hypoglycemia Protocol Stop: 11/01/20 10:29 Glucagon (Glucagon For Inj 1 Mg Vial) 1 mg IM UD PRN; Protocol PRN Reason: Hypoglycemia Protocol Stop: 11/01/20 10:29 Glucose (Glucose 40% Gel 15 Gm Tube) 15 - 30 gm PO UD PRN; Protocol PRN Reason: Hypoglycemia Protocol Stop: 11/01/20 10:29 Glucose (Glucose 10 Tabs/Tube) 4 - 8 tabs PO UD PRN; Protocol PRN Reason: Hypoglycemia Protocol Stop: 11/01/20 10:29 Heparin Sodium (Porcine) (Heparin Sod 5,000 Unit/0.5 Ml Vial) 5,000 units SQ Q8 [facility] Stop: 10/31/20 15:44 Last Admin: 10/02/20 06:31 Dose: 5,000 units Documented by: Ceftriaxone Sodium 2,000 mg/ (Dextrose) 70 mls @ 100 mls/hr IV Q24H BRENDA; Protocol Stop: 10/09/20 11:59 Last Infusion: 10/02/20 12:06 Dose: Infused Documented by: Lorazepam (Ativan) 1 mg in 2 mls @ 2 mls/min IV ONE PRN; Protocol PRN Reason: EtoH Withdrawal AWSS 6-10 Stop: 10/31/20 15:44 Folic Acid 1 mg/ Syringe 10 mls @ 5 mls/min IV QAM [facility] Stop: 10/31/20 15:44 Last Admin: 10/02/20 08:01 Dose: 5 mls/min Documented by: Lorazepam (Ativan) 1 mg in 2 mls @ 2 mls/min IV UD PRN; Protocol PRN Reason: EtOH Withdrawl AWSS Score 6,7 Stop: 10/31/20 15:44 Lorazepam (Ativan) 2 mg in 4 mls @ 4 mls/min IV UD PRN; Protocol PRN Reason: EtOH Withdrawl AWSS Score 8,9 Stop: 10/31/20 15:44 Last Admin: 10/02/20 07:49 Dose: 4 mls/min Documented by: Lorazepam (Ativan) 3 mg in 6 mls @ 4 mls/min IV ONCE PRN; Protocol PRN Reason: EtOH Withdrawl AWSS Score >=10 Stop: 10/31/20 15:44 Fomepizole 1 gm/ Sodium (Chloride) 101 mls @ 202 mls/hr IV Q12H [facility] Stop: 10/03/20 16:59 Last Infusion: 10/02/20 07:00 Dose: Infused Documented by: Doxycycline Hyclate 100 mg/ (Dextrose) 110 mls @ 50 mls/hr IV Q12H [facility] Stop: 10/08/20 17:29 Last Infusion: 10/02/20 08:43 Dose: Infused Documented by: Sodium Chloride (1/2 Nss) 1,000 mls @ 125 mls/hr IV .Q8H [facility] Stop: 10/31/20 22:29 Last Admin: 10/02/20 11:15 Dose: 125 mls/hr Documented by: Potassium Phosphate 21 mmol/ (Sodium Chloride) 507 mls @ 88 mls/hr IV ONE ONE Stop: 10/02/20 16:15 Last Admin: 10/02/20 11:15 Dose: 88 mls/hr Documented by: Insulin Aspart (Insulin Aspart 100 Units/Ml 3 Ml Pen) 0 units SC ACHS [facility] Stop: 11/01/20 11:29 Last Admin: 10/02/20 11:57 Dose: Not Given Documented by: Metoprolol Tartrate (Metoprolol Tartrate 25 Mg Tab) 12.5 mg PO BID [facility] Stop: 11/01/20 08:59 Last Admin: 10/02/20 09:29 Dose: 12.5 mg Documented by: Miscellaneous (Icu Protocol For Hyperglycemia) 1 ea N/A PRN PRN; Protocol PRN Reason: Hyperglycemia Protocol Stop: 10/03/20 15:44 Miscellaneous (Carbohydrates For Hypoglycemia ) 15 - 30 gm PO UD PRN PRN Reason: Hypoglycemia Treatment Stop: 11/01/20 10:29 Multivitamins (Multivitamin Tab) 1 tab PO QAM [facility] Stop: 11/01/20 08:59 Last Admin: 10/02/20 08:01 Dose: 1 tab Documented by: Thiamine HCl (Thiamine Hcl 100 Mg Tab) 300 mg PO QAM [facility] Stop: 10/31/20 15:44 Last Admin: 10/02/20 08:01 Dose: 300 mg Documented by: PG Care Time/CCT Total # of Minutes Spent Total Time Spent with Patient: Total time spent is greater than 50% in coordi nation of care (as documented) at patient's floor/unit and/or counseling patient: Coding Level of Care Code 72768 Subseq Hosp Care Lvl 3 Diagnoses Pneumonia J18.9 Sepsis A41.9 Alcohol use Z72.89 Lactic acidosis E87.2 BESSIE (acute kidney injury) N17.9 High serum osmolar gap R74.8 Hyponatremia E87.1 Hypokalemia E87.6 Narcotic abuse F11.10 HTN (hypertension) I10 Hyperglycemia R73.9
[2020-10-02 14:58] LABS: BUN Creatinine Ratio 6.8 (10-20); Calcium 7.7 mg/dl (8.5-10.1); Creatinine Clr Calc Pharmacy 36.4 ml/min; Est GFR (African American) 24.2 ml/min; Est GFR (Non-African American) 20.8 ml/min
[2020-10-02 17:31] LABS: BUN Creatinine Ratio 6.5 (10-20); Calcium 7.7 mg/dl (8.5-10.1); Creatinine Clr Calc Pharmacy 37.2 ml/min; Est GFR (African American) 24.8 ml/min; Est GFR (Non-African American) 21.4 ml/min; Potassium 3.9 mmol/L (3.5-5.1)
[2020-10-02 22:14] LABS: BUN Creatinine Ratio 6.9 (10-20); Calcium 7.5 mg/dl (8.5-10.1); Creatinine Clr Calc Pharmacy 44.7 ml/min; Est GFR (Non-African American) 26.7 ml/min; Potassium 3.5 mmol/L (3.5-5.1)
[2020-10-02] MEDS: NICOTINE 21 MG/24 HR TDSY TD SCH (23:38)
[2020-10-03] MEDS: SODIUM CHLORIDE 0.9% IV SCH (04:30)
[2020-10-03] MEDS: FOMEPIZOLE IV SCH (04:30)
[2020-10-03 05:25] LABS: BUN Creatinine Ratio 6.9 (10-20); Creatinine Clr Calc Pharmacy 54.3 ml/min; Est GFR (African American) 39.2 ml/min; Est GFR (Non-African American) 33.8 ml/min; Magnesium 1.7 mg/dl (1.8-2.4); Potassium 3.4 mmol/L (3.5-5.1)
[2020-10-03 05:39] LABS: Phosphorus 0.5 mg/dl (2.5-4.9)
[2020-10-03] MEDS ORDERED: POTASSIUM PHOS 3 MMOL/1 ML INFUSION IV STA (05:42)
[2020-10-03] MEDS ORDERED: POTASSIUM PHOSPHATE 40 MMOL in SODIUM CHLORIDE 0.9% 1000ML 1,000 ML IV ONE (06:00)
[2020-10-03] MEDS: SODIUM CHLORIDE 0.45 % 1,000 ML IV SCH ×3 (06:00→22:13)
[2020-10-03] MEDS: DOXYCYCLINE HYCLATE 100 MG in DEXTROSE 5% 100 ML IV SCH ×2 (06:01→16:45)
[2020-10-03] MEDS: HEPARIN SOD 5,000 UNIT/0.5 ML VIAL SQ SCH ×3 (06:01→20:07)
[2020-10-03] MEDS: THIAMINE HCL 100 MG TAB PO SCH (08:12)
[2020-10-03] MEDS: MULTIVITAMIN TAB PO SCH (08:12)
[2020-10-03] MEDS: METOPROLOL TARTRATE 25 MG TAB PO SCH ×2 (08:13→20:06)
[2020-10-03] MEDS: BUPRENORPHINE/NALOXONE 8/2 MG TAB SL SCH ×2 (08:15→20:06)
[2020-10-03] MEDS: FOLIC ACID 1 MG in SYRINGE 9.8 ML IV SCH (08:15)
[2020-10-03] MEDS: NICOTINE 21 MG/24 HR TDSY TD SCH ×2 (08:17→11:21)
[2020-10-03] MEDS: LORazepam 1 MG/2 ML VIAL IV PRN ×2 (08:42→13:34)
[2020-10-03] MEDS: INSULIN ASPART 100 UNITS/ML 3 ML PEN SC SCH ×4 (09:04→20:07)
--- NOTE | 2020-10-03 11:08 | Nephrology Progress Note ---
Date of Service October 03, 2020 Assessment & Plan (1) Acute renal failure: Plan: * BESSIE - suspect ATN related to hypotension in the setting of VICTOR M inhibitor therapy * Cr is trending down following stabilization of BP and patient remains nonoliguric (Cr 6.8 --> 2.4) * Noncontrast abdominal CT 10/01: no obstruction * CPK level wnl * Muscle cramping likely related to hypophosphatemia. ICU team has ordered KPO4 replacement * No acute indication for HD at this time (2) High serum osmolar gap: Plan: * Admitted w/ osmolar gap 22. Lactic acidosis, BESSIE, ethanol ingestion were likely contributing * Patient remains neurologically intact. He is not acidemic. Toxic alcohol levels are pending (send out lab) * AG and osmolar gap have both corrected. Poison Control has discontinued Fomepizole * B12, folate, MVI as per ICU team (3) Acute hyponatremia: Plan: * Serum sodium 132 this am. Rate of correction is appropriate (4) Septic shock: Plan: * Chest CT 10/01 revealed bilateral infiltrates * On IV Ceftriaxone and Doxycycline Admission and Anticipated Discharge Date Admission Date: October 01, 2020 Subjective Mr. Arellano was seen & examined in the ICU this morning. He is A&O x3 and follows commands appropriately. He currently denies fever, angina, dyspnea, nausea or diarrhea. His lower back and leg discomfort is mildly improved. Review of Systems Constitutional: + weakness; no fever and no chills Eyes: no worsening vision Ear, Nose, Mouth, Throat: no problem reported Respiratory: + dyspnea; no cough Cardiovascular: + edema; no chest pain and no palpitations Gastrointestinal: no abdominal pain, no nausea, no vomiting and no diarrhea/loose stools Genitourinary: no dysuria, no urinary hesitancy or no hematuria Musculoskeletal: + back pain Neurologic: no dizziness and no confusion Physical Exam Constitutional: + obese and cooperative; not in distress Eyes: PERRL, conjunctivae normal, anicteric sclerae ENMT: external ear and nose normal, oropharynx normal Neck: trachea midline, no thyromegaly Respiratory: normal respiratory effort and able to speak in complete sentences; no respiratory distress Auscultation: + rales (bilaterally) Cardiovascular: Rate/Rhythm: regular rhythm and + tachycardic Extremities: + edema (1+ LE swelling) Gastrointestinal (Abdomen): normal bowel sounds, soft, nontender, no hepatosplenomegaly Musculoskeletal: Extremities: no cyanosis, no clubbing and no petechiae Skin: no rashes, warm and dry Neurologic: awake; not confused Results & Data ([facility]) Vital Signs (Past 12 Hours) Vital Signs Temp Pulse Resp BP Pulse Ox 10/03/20 08:21 37.7 C H 119 H 21 133/81 100 10/03/20 07:21 37.7 C H 147 H 136/87 93 10/03/20 06:21 37.6 C H 111 H 115/76 96 10/03/20 05:21 37.7 C H 109 H 16 133/85 97 10/03/20 04:22 37.8 C H 112 H 16 117/72 96 10/03/20 03:21 37.7 C H 108 H 12 138/77 95 10/03/20 02:21 38.0 C H 109 H 122/77 95 10/03/20 01:21 37.9 C H 108 H 121/65 94 10/03/20 00:22 37.9 C H 110 H 130/76 93 10/02/20 23:29 108 H 10/02/20 23:23 37.9 C H 122 H 86/58 L 96 Laboratory Results Laboratory Tests 10/03/20 10/03/20 04:51 04:51 Sodium 132 L Potassium 3.4 L Chloride 99 Carbon Dioxide 28 BUN 16 Creatinine 2.38 H D Glucose 104 H Osmolality 277 L Calcium 7.0 L Phosphorus 0.5 L* Magnesium 1.7 L PG Care Time/CCT Total # of Minutes Spent Total Time Spent with Patient: Total time spent is greater than 50% in coordination of care (as documented) at patient's floor/unit and/or counseling patient: Coding Level of Care Code 90341 Subseq Hosp Care Lvl 3 Diagnoses Acute renal failure N17.9 High serum osmolar gap R74.8 Acute hyponatremia E87.1 Septic shock A41.9; R65.21
[2020-10-03] MEDS: cefTRIAXone SODIUM 2,000 MG in DEXTROSE 5% 50 ML IV SCH (11:22)
[2020-10-03 13:06] LABS: Methyl Alcohol Comment WHOLE BLOOD; Methyl Alcohol Level NONE DETECTED (NONE DETECTED)
[2020-10-03] MEDS: LORazepam 3 MG/6 ML VIAL IV PRN ×2 (19:49→23:52)
[2020-10-03] MEDS: LORazepam 2 MG/4 ML VIAL IV PRN ×3 (20:57→23:06)
--- NOTE | 2020-10-03 22:33 | Hospitalist Progress Note ---
Date of Service October 03, 2020 Assessment & Plan (1) Alcohol withdrawal: Plan: requiring several doses of Ativan according to AWSS scale stopped fomepizole with closer of osmol gap and poison control stated that it was no longer needed continue tele monitoring and pulse ox (2) BESSIE (acute kidney injury): Plan: significant injury with Cr > 5 on admission slowly improving with IV fluids Cr down to 2.38 K normal, Phos low avoid nephrotoxins he is non-oliguric nephrology managing (3) Pneumonia: Plan: Bilateral lobar pneumonia- vaping and smoking history - Blood cultures: no growth - Continue Rocephin and doxycycline for total of 7 days (4) Sepsis: Plan: SIRS 3, qSOFA 2 on admission - due to pneumonia urine and blood cultures negative - Continue volume resuscitation (5) Alcohol use: Plan: AAWS coverage with Ativan - limited options with renal function and hypotension at this time admits to drinking several shots of Fireball daily, could be more (6) Lactic acidosis: Plan: Sepsis with hypovolemia and BESSIE - received 1 liter of saline and 1 banana bag in EMD - Continue resuscitation based on urine output and lactate - stop IV fluids (7) High serum osmolar gap: Plan: Ingestion possible- elevated triglycerides with ethyl alcohol on board- likely causing serum > calculated osm serum 286 - osmolar gap 278 Urine OSMO 238 - ethyl ETOH 22.9 - Lactate 3.8 - fomepizole given, stopped 10/03 (8) Hyponatremia: Plan: Hypovolemia hyponatremia with ETOH abuse likely, multifocal - Lipids sent with triglyceride 2028- likely adding to the above hyponatremia significantly - Continue with volume resuscitation with LR - or normosol - Continue with potassium replacement as well as this will help (9) Hypokalemia: Plan: Continue with ICU replacement protocol careful with his [employer] - Follow ECG - Both should improve (10) Narcotic abuse: Plan: Cotninue suboxone - ICU for pain control (11) HTN (hypertension): Plan: Hold ARB (12) Hyperglycemia: Plan: Glucose 269 on admission HCO3 25 on ABG, 18 on CO2 serum - PH 7.44 mixed - Continue with resuscitation and glucose control - ICU insulin protocol - Follow HCo3 and response to glucose control sugars improved, monitor for hypoglycemia Admission and Anticipated Discharge Date Admission Date: October 01, 2020 Subjective patient had a few doses of Ativan today, he is more alert and talkative today eating okay c/o some pain and numbness in his legs, says 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, 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 [employer] his breathing is comfortable, no chest pain, no fever, no headache Cr down to 2.38, K normal, Phos low, HCO3 normal Review of Systems Review of Systems: All systems reviewed & are unremarkable except as noted in Subjective Respiratory: no cough and no dyspnea Cardiovascular: no chest pain and no edema Gastrointestinal: no abdominal pain, no nausea, no vomiting, no constipation and no diarrhea/loose stools Neurologic: + tremor(s) Physical Exam Constitutional: well developed, + ill appearing and + obese; no acute distress Neck: trachea midline, no thyromegaly Respiratory: normal respiratory effort, lungs clear to auscultation Cardiovascular: Rate/Rhythm: regular rhythm and + tachycardic Heart Sounds: normal S1 and normal S2; no murmur Vessels: no JVD Extremities: normal capillary refill; no edema Gastrointestinal (Abdomen): normal bowel sounds, soft, nontender, no hepatosplenomegaly Musculoskeletal: no cyanosis or clubbing, extremities motor strength 5/5 Skin: no rashes, warm and dry Neurologic: CN's II-XI intact bilaterally and moves all extremities; no focal motor deficits, + not awake (sleeping a lot) and not confused Psychiatric: Orientation: oriented x 3 and cooperative Results & Data Results & Data ([facility]) Vital Signs (Past 12 Hours) Vital Signs Temp Pulse Pulse Resp BP BP Pulse Ox 10/03/20 22:05 38.8 C H 130 H 19 139/99 95 10/03/20 20:53 38.5 C H 130 H 18 144/94 H 96 10/03/20 19:45 38.5 C H 133 H 20 138/103 H 96 10/03/20 16:00 118 H 10/03/20 15:46 37.7 C H 109 H 15 138/103 H 99 10/03/20 12:22 37.8 C H 109 H 15 124/90 98 10/03/20 11:21 37.7 C H 106 H 24 110/80 95 10/03/20 11:11 116 H Laboratory Results Laboratory Results - last 24 hr 10/01/20 10/01/20 10/03/20 14:42 15:51 04:51 Sodium Potassium Chloride Carbon Dioxide Anion Gap BUN Creatinine Est Cr Clr Drug Dosing Est GFR ( Amer) Est GFR (Non-Af Amer) BUN/Creatinine Ratio Glucose POC Glucose Osmolality 277 L Calcium Phosphorus Magnesium Volat Analys Perform On WHOLE BLOOD Ethyl Alcohol mg/dL Methyl Alcohol Level NONE DETECTED Miscellaneous Test REPORT 10/03/20 10/03/20 10/03/20 04:51 04:51 11:24 Sodium 132 L Potassium 3.4 L Chloride 99 Carbon Dioxide 28 Anion Gap 5.0 BUN 16 Creatinine 2.38 H D Est Cr Clr Drug Dosing 54.3 Est GFR ( Amer) 39.2 Est GFR (Non-Af Amer) 33.8 BUN/Creatinine Ratio 6.9 L Glucose 104 H POC Glucose 169 H Osmolality Calcium 7.0 L Phosphorus 0.5 L* Magnesium 1.7 L Volat Analys Perform On Ethyl Alcohol mg/dL < 3.0 Methyl Alcohol Level Miscellaneous Test 10/03/20 10/03/20 16:33 20:00 Sodium Potassium Chloride Carbon Dioxide Anion Gap BUN Creatinine Est Cr Clr Drug Dosing Est GFR ( Amer) Est GFR (Non-Af Amer) BUN/Creatinine Ratio Glucose POC Glucose 106 H 109 H Osmolality Calcium Phosphorus Magnesium Volat Analys Perform On Ethyl Alcohol mg/dL Methyl Alcohol Level Miscellaneous Test Medications Administered Current Inpatient Medications Buprenorphine/Naloxone (Buprenorphine/Naloxone 8/2 Mg Tab) 1 tab SL BID BRENDA Stop: 10/31/20 20:59 Last Admin: 10/03/20 20:06 Dose: 1 tab Documented by: Dextrose (Dextrose 50% 50 Ml Syringe) 25 - 50 ml IV UD PRN; Protocol PRN Reason: Hypoglycemia Protocol Stop: 11/01/20 10:29 Glucagon (Glucagon For Inj 1 Mg Vial) 1 mg IM UD PRN; Protocol PRN Reason: Hypoglycemia Protocol Stop: 11/01/20 10:29 Glucose (Glucose 40% Gel 15 Gm Tube) 15 - 30 gm PO UD PRN; Protocol PRN Reason: Hypoglycemia Protocol Stop: 11/01/20 10:29 Glucose (Glucose 10 Tabs/Tube) 4 - 8 tabs PO UD PRN; Protocol PRN Reason: Hypoglycemia Protocol Stop: 11/01/20 10:29 Heparin Sodium (Porcine) (Heparin Sod 5,000 Unit/0.5 Ml Vial) 5,000 units SQ Q8 BRENDA Stop: 10/31/20 15:44 Last Admin: 10/03/20 20:07 Dose: 5,000 units Documented by: Ceftriaxone Sodium 2,000 mg/ (Dextrose) 70 mls @ 100 mls/hr IV Q24H [facility]; Protocol Stop: 10/09/20 11:59 Last Infusion: 10/03/20 12:09 Dose: Infused Documented by: Lorazepam (Ativan) 1 mg in 2 mls @ 2 mls/min IV ONE PRN; Protocol PRN Reason: EtoH Withdrawal AWSS 6-10 Stop: 10/31/20 15:44 Last Admin: 10/03/20 13:34 Dose: 2 mls/min Documented by: Folic Acid 1 mg/ Syringe 10 mls @ 5 mls/min IV QAM [facility] Stop: 10/31/20 15:44 Last Admin: 10/03/20 08:15 Dose: 5 mls/min Documented by: Lorazepam (Ativan) 1 mg in 2 mls @ 2 mls/min IV UD PRN; Protocol PRN Reason: EtOH Withdrawl AWSS Score 6,7 Stop: 10/31/20 15:44 Last Admin: 10/02/20 20:49 Dose: 2 mls/min Documented by: Lorazepam (Ativan) 2 mg in 4 mls @ 4 mls/min IV UD PRN; Protocol PRN Reason: EtOH Withdrawl AWSS Score 8,9 Stop: 10/31/20 15:44 Last Admin: 10/03/20 22:14 Dose: 4 mls/min Documented by: Lorazepam (Ativan) 3 mg in 6 mls @ 4 mls/min IV ONCE PRN; Protocol PRN Reason: EtOH Withdrawl AWSS Score >=10 Stop: 10/31/20 15:44 Last Admin: 10/03/20 19:49 Dose: 4 mls/min Documented by: Doxycycline Hyclate 100 mg/ (Dextrose) 110 mls @ 50 mls/hr IV Q12H [facility] Stop: 10/08/20 17:29 Last Infusion: 10/03/20 18:52 Dose: Infused Documented by: Sodium Chloride (1/2 Nss) 1,000 mls @ 125 mls/hr IV .Q8H [facility] Stop: 10/31/20 22:29 Last Admin: 10/03/20 22:13 Dose: 125 mls/hr Documented by: Insulin Aspart (Insulin Aspart 100 Units/Ml 3 Ml Pen) 0 units SC ACHS [facility] Stop: 11/01/20 11:29 Last Admin: 10/03/20 20:07 Dose: Not Given Documented by: Metoprolol Tartrate (Metoprolol Tartrate 25 Mg Tab) 12.5 mg PO BID [facility] Stop: 11/01/20 08:59 Last Admin: 10/03/20 20:06 Dose: 12.5 mg Documented by: Miscellaneous (Carbohydrates For Hypoglycemia ) 15 - 30 gm PO UD PRN PRN Reason: Hypoglycemia Treatment Stop: 11/01/20 10:29 Miscellaneous (Remove Nicoderm Patch) 1 ea N/A DAILY@0859 [facility] Stop: 11/02/20 08:58 Last Admin: 10/03/20 08:17 Dose: 1 ea Documented by: Multivitamins (Multivitamin Tab) 1 tab PO QAM [facility] Stop: 11/01/20 08:59 Last Admin: 10/03/20 08:12 Dose: 1 tab Documented by: Nicotine (Nicotine 21 Mg/24 Hr Tdsy) 21 mg TD QAM [facility] Stop: 11/02/20 08:59 Last Admin: 10/03/20 11:21 Dose: 21 mg Documented by: Thiamine HCl (Thiamine Hcl 100 Mg Tab) 300 mg PO QAM [facility] Stop: 10/31/20 15:44 Last Admin: 10/03/20 08:12 Dose: 300 mg Documented by: PG Care Time/CCT Total # of Minutes Spent Total Time Spent with Patient: Total time spent is greater than 50% in coordination of care (as documented) at patient's floor/unit and/or counseling patient: Coding Level of Care Code 86307 Subseq Hosp Care Lvl 3 Diagnoses Pneumonia J18.9 Sepsis A41.9 Alcohol use Z72.89 Lactic acidosis E87.2 BESSIE (acute kidney injury) N17.9 High serum osmolar gap R74.8 Hyponatremia E87.1 Hypokalemia E87.6 Narcotic abuse F11.10 HTN (hypertension) I10 Hyperglycemia R73.9 Alcohol withdrawal F10.239
[2020-10-03] MEDS: ACETAMINOPHEN 500 MG TAB PO PRN (23:09)
[2020-10-04] MEDS ORDERED: LORazepam 1 MG/2 ML VIAL IV PRN (00:07)
[2020-10-04] MEDS ORDERED: LORazepam 2 MG/4 ML VIAL IV PRN (00:07)
[2020-10-04] MEDS ORDERED: ATIVAN IV ALCOHOL WITHDRAWL IV PRN ×2 (00:08→10:02)
[2020-10-04] MEDS ORDERED: LORazepam 3 MG/6 ML VIAL IV PRN (00:08)
[2020-10-04] MEDS ORDERED: STAT IV Infusion **Titration per Protocol STA (01:02)
--- NOTE | 2020-10-04 01:12 | Critical Care Progress Note ---
Date of Service October 04, 2020 Assessment & Plan (1) Acute hyponatremia: Plan: Impression: 35-year-old male was initially admitted to the ICU with acute hyponatremia, BESSIE, and severe electrolyte abnormalities. Patient was improving and initially downgraded on 10/02 for now having worsening DTs and requiring Precedex drip. Neuro - Delirium tremenspatient reports drinking 4 to 5 shots of fireball per day. -Persistent ALLEY score with last 15 despite large doses of IV Ativan -Upgraded to ICU care and starting Precedex drip, will add scheduled IV Ativan as would not recommend use of Precedex for monotherapy -Continue alcohol withdrawal protocol. - Continue folic acid, thiamine and multivitamin. Cardiac - Tachycardiapatient presented to the ER with heart rate in 140s, this is also noted on previous ER visit in August -Suspect this likely multifactorial in the setting of sepsis, fever, alcohol withdrawal -Troponin negative, EKG with sinus tachycardia and age indeterminate inferior infarct -Echo unremarkable Respiratory - Currently maintaining oxygen saturations on room air. No respiratory distress. 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 Abdominal ultrasound is benign. He does have severe hyper triglyceridemia. Lipase normal. Repeat triglyceride down trended RENAL/LYTES - BESSIE-improving following fluid resuscitation. Initial creatinine 6.96 now downtrending. -No previous history of renal disease and normal creatinine on last admission -CT abdomen and pelvis: Multiple bilateral renal lesions noted, no hydronephrosis -Nephrology followingsuspicious for ATN related to hypotension in the setting of VICTOR M inhibitor therapy -CPK unremarkable -No indication for hemodialysis at this time -Avoid nephrotoxins and renally adjust medications -Monitor High serum osmolar gapresolved. Patient with elevated lactate, BESSIE and ethanol ingestion -Poison control contacted and patient being tested for ethylene glycol, methanol, propylene glycol, isopropyl alcohol, still pending -Was started on Fomepazole, now DC'd per poison control recommendations -No severe acidosis at this time and no indication for HD as of now -Monitor routine BMPs Acute hyponatremiaresolved with last sodium 132, monitor routine BMP Severe electrolyte abnormalitiesimproved with repletion - Strict I's and O's ENDO - No history of diabetes or thyroid disease ICU hyperglycemic protocol HEME - H&H stable, monitor routine CBCs ID - Sepsis?Likely pulmonary source considering bilateral infiltrate seen on chest imaging. He was recently seen in the ER and placed on oral antibiotics -Elevated WBC, pro calcitonin and lactate consistent with sepsis. No evidence of septic shock at this time -Patient continues to have persistent fevers which may be partly due to EtOH withdrawal? -Blood cultures NTD, UA unremarkable -COVID-19 negative -Nasal MRSA negative -Lyme disease inconclusive, Western blot pending -Continue ceftriaxone, doxycycline LINES/IV ACCESS - Central venous catheter DVT PROPHYLAXIS - SCDs, Heparin subc CRITICAL CARE TIME - I have personally spent 35 minutes of critical care time in the direct management of this patient. This is a life/limb threatening event. This includes time spent evaluating patient, direct bedside care, chart review, placing orders, interpretation of diagnostic studies, discussion with consultants, patient, and family members, as well as other required patient management activities. This time is exclusive of all separately billable procedures, and teaching time and separate from and in addition to any other critical care service time. (2) Bilateral pneumonia: (3) Acute renal failure: (4) Sepsis: (5) Lactic acidosis: (6) Acute hypokalemia: (7) High serum osmolar gap: (8) Alcohol use: (9) HTN (hypertension): Admission and Anticipated Discharge Date Admission Date: October 01, 2020 Subjective Patient has continued to have worsening alcohol withdrawal and is now experiencing uncontrolled delirium tremens with hallucinations and delusions despite IV Ativan per AWSscale with last score of 15 following Ativan. Patient now upgraded to ICU care as he is being started on Precedex drip. He is otherwise hemodynamically stable but has remained persistently febrile and tachycardic. Hyponatremia, acute renal failure, and electrolyte abnormalities have improved since admission. He still ongoing treatment for sepsis from pneumonia on doxycycline and Rocephin. Patient to remain in ICU for further care at this time while he is requiring Precedex drip. Review of Systems Review of Systems: Unobtainable due to cognitive status Physical Exam Constitutional: + obese, + altered mental status and + diaphoretic; + uncooperative Eyes: PERRL, conjunctivae normal, anicteric sclerae ENMT: external ear and nose normal, oropharynx normal Neck: trachea midline, no thyromegaly Respiratory: Rhonchi auscultated bilaterally, symmetrical chest wall movement, nonlabored breathing Cardiovascular: Tachycardia, S1-S2 auscultated, no chest pain, no edema, no JVD Gastrointestinal (Abdomen): normal bowel sounds, soft, nontender, no hepatosplenomegaly Musculoskeletal: no cyanosis or clubbing, extremities motor strength 5/5 Tremors in upper extremities Skin: no rashes, warm and dry Neurologic: Confused and experiencing hallucinations and delusions along with tremors. Neurological exam otherwise unremarkable Results & Data Results & Data ([facility]) Vital Signs (Past 12 Hours) Vital Signs Temp Pulse Pulse Resp BP BP Pulse Ox 10/04/20 00:48 38.8 C H 128 H 23 140/95 98 10/03/20 23:44 38.9 C H 123 H 22 153/82 H 95 10/03/20 23:02 38.8 C H 130 H 22 138/80 94 10/03/20 22:05 38.8 C H 130 H 19 139/99 95 10/03/20 20:53 38.5 C H 130 H 18 144/94 H 96 10/03/20 19:45 38.5 C H 133 H 20 138/103 H 96 10/03/20 16:00 118 H 10/03/20 15:46 37.7 C H 109 H 15 138/103 H 99 Coding Level of Care Code Critical Care 1st 30-74 mins Diagnoses Acute hyponatremia E87.1 Bilateral pneumonia J18.9 Acute renal failure N17.9 Sepsis A41.9 Lactic acidosis E87.2 Acute hypokalemia E87.6 High serum osmolar gap R74.8 Alcohol use Z72.89 HTN (hypertension) I10
[2020-10-04] MEDS: DEXMEDETOMIDINE HCL 200 MCG in SODIUM CHLORIDE 0.9% 48 ML IV SCH ×3 (01:17→04:27)
[2020-10-04] MEDS ORDERED: LORazepam 4 MG/8 ML VIAL IV STA (01:36)
[2020-10-04] MEDS: DEXMEDETOMIDINE HCL 400 MCG in 0.9 % SODIUM CHLORIDE 96 ML IV SCH ×6 (04:04→21:46)
[2020-10-04 04:45] LABS: Hematocrit (blood only) 29.7 % (42-52); Hemoglobin 9.6 g/dL (14.0-18.0); Mean Corpuscular Hemoglobin 32.4 pg (25-34); Mean Corpuscular Hgb Conc 32.3 g/dL (32-36); Mean Corpuscular Volume 100.3 fL (80-100); Mean Platelet Volume 9.5 fL (7.4-10.4); Platelet Count 151 K/uL (130-400); RDW Coefficient of Variation 13.9 % (11.5-14.5); RDW Standard Deviation 49.9 fL (36.4-46.3); Red Blood Count 2.96 M/uL (4.7-6.1); White Blood Count 7.85 K/uL (4.8-10.8)
[2020-10-04] MEDS: DOXYCYCLINE HYCLATE 100 MG in DEXTROSE 5% 100 ML IV SCH ×2 (04:47→15:50)
[2020-10-04 05:11] LABS: BUN Creatinine Ratio 4.7 (10-20); Calcium 6.3 mg/dl (8.5-10.1); Creatinine Clr Calc Pharmacy 84.7 ml/min; Est GFR (African American) 66.8 ml/min; Est GFR (Non-African American) 57.6 ml/min; Magnesium 1.3 mg/dl (1.8-2.4); Potassium 3.3 mmol/L (3.5-5.1)
[2020-10-04 05:17] LABS: Phosphorus 1.5 mg/dl (2.5-4.9)
[2020-10-04] MEDS ORDERED: POTASSIUM PHOS 3 MMOL/1 ML INFUSION IV STA (05:32)
[2020-10-04] MEDS ORDERED: POTASSIUM PHOSPHATE 30 MMOL in SODIUM CHLORIDE 0.9% 500 ML IV ONE (05:45)
[2020-10-04] MEDS: MAGNESIUM SULFATE / D5W 1 GM/100 ML BAG IV SCH ×3 (05:55→10:16)
[2020-10-04] MEDS: HEPARIN SOD 5,000 UNIT/0.5 ML VIAL SQ SCH ×3 (05:57→20:34)
[2020-10-04] MEDS ORDERED: LORazepam 4 MG/8 ML VIAL IV SCH (06:00)
[2020-10-04 06:15] LABS: Basophils # (auto) 0.06 K/uL (0-0.2); Basophils % (auto) 0.8 %; Eosinophils # (auto) 0.13 K/uL (0-0.5); Eosinophils % (auto) 1.7 %; Immature Granulocytes # (auto) 0.41 K/uL (0.00-0.02); Immature Granulocytes % (auto) 5.2 %; Lymphocytes # (auto) 2.53 K/uL (1.2-3.4); Lymphocytes % (auto) 32.2 %; Monocytes # (auto) 0.59 K/uL (0.11-0.59); Monocytes % (auto) 7.5 %; Neutrophils # (auto) 4.13 K/uL (1.4-6.5); Neutrophils % (auto) 52.6 %; Pappenheimer Bodies 1+; Stomatocytes 1+
[2020-10-04] MEDS: SODIUM CHLORIDE 0.45 % 1,000 ML IV SCH ×2 (06:37→15:47)
[2020-10-04] MEDS: INSULIN ASPART 100 UNITS/ML 3 ML PEN SC SCH ×4 (07:00→20:34)
[2020-10-04] MEDS: FOLIC ACID 1 MG in SYRINGE 9.8 ML IV SCH (09:02)
[2020-10-04] MEDS: THIAMINE HCL 100 MG TAB PO SCH (09:02)
[2020-10-04] MEDS: MULTIVITAMIN TAB PO SCH (09:02)
[2020-10-04] MEDS: METOPROLOL TARTRATE 25 MG TAB PO SCH ×2 (09:02→20:33)
[2020-10-04] MEDS: NICOTINE 21 MG/24 HR TDSY TD SCH (09:02)
[2020-10-04] MEDS: BUPRENORPHINE/NALOXONE 8/2 MG TAB SL SCH ×2 (09:05→20:32)
--- NOTE | 2020-10-04 09:30 | Nephrology Progress Note ---
Date of Service October 04, 2020 Assessment & Plan (1) Acute renal failure: Plan: * BESSIE - suspect ATN related to hypotension in the setting of VICTOR M inhibitor therapy * Cr is nearing baseline. Patient is nonoliguric * Noncontrast abdominal CT 10/01: no obstruction * CPK level wnl * Muscle cramping likely related to hypophosphatemia. ICU team has ordered KPO4 replacement * No further Nephrology evaluation indicated at this time. Will sign off. Please call if further assistance is needed (2) High serum osmolar gap: Plan: * AG and osmolar gap have corrected. Lactic acidosis, BESSIE, ethanol ingestion were likely contributing * Methanol was negative. Ethylene glycol and isopropyl alcohol levels are pending * Fomepizole has been stopped * B12, folate, MVI as per ICU team (3) Acute hyponatremia: Plan: * Corrected Admission and Anticipated Discharge Date Admission Date: October 01, 2020 Subjective Mr. Arellano was seen & examined in the ICU this morning. He is undergoing alcohol withdrawl and having active hallucinations Review of Systems Review of Systems: Unobtainable due to cognitive status Physical Exam Constitutional: + obese and + combative; + uncooperative and not in distress Eyes: PERRL, conjunctivae normal, anicteric sclerae ENMT: external ear and nose normal, oropharynx normal Neck: trachea midline, no thyromegaly Respiratory: normal respiratory effort and able to speak in complete sentences; no respiratory distress Cardiovascular: Rate/Rhythm: regular rhythm and + tachycardic Extremities: + edema (1+ LE swelling) Gastrointestinal (Abdomen): normal bowel sounds, soft, nontender, no hepatospl enomegaly Musculoskeletal: Extremities: no cyanosis, no clubbing and no petechiae Skin: no rashes, warm and dry Neurologic: awake; not confused Results & Data ([facility]) Vital Signs (Past 12 Hours) Vital Signs Temp Pulse Pulse Resp BP BP Pulse Ox 10/04/20 06:38 36.4 C L 83 16 122/95 99 10/04/20 06:08 36.5 C 84 17 142/95 H 99 10/04/20 05:38 36.6 C 85 18 121/96 99 10/04/20 05:08 36.9 C 86 18 140/93 99 10/04/20 04:00 37.5 C 93 H 20 98 10/04/20 03:24 37.9 C H 105 H 34 H 97 10/04/20 02:23 37.9 C H 121 H 22 154/99 H 95 10/04/20 01:25 38.7 C H 133 H 18 133/98 96 10/04/20 01:21 38.8 C H 132 H 20 133/98 98 10/04/20 00:48 38.8 C H 128 H 23 140/95 98 10/04/20 00:00 38.8 C H 115 H 14 117/72 10/03/20 23:44 38.9 C H 123 H 22 153/82 H 95 10/03/20 23:02 38.8 C H 130 H 22 138/80 94 10/03/20 23:01 38.8 C H 127 H 21 138/80 95 10/03/20 22:05 38.8 C H 130 H 19 139/99 95 10/03/20 22:04 38.8 C H 143 H 19 139/99 94 Laboratory Results Laboratory Tests 10/04/20 10/04/20 04:34 04:34 WBC 7.85 Hgb 9.6 L Hct 29.7 L Plt Count 151 Sodium 135 L Potassium 3.3 L Chloride 104 Carbon Dioxide 28 BUN 7 D Creatinine 1.53 H D Glucose 116 H PG Care Time/CCT Total # of Minutes Spent Total Time Spent with Patient: Total time spent is greater than 50% in coordination of care (as documented) at patient's floor/unit and/or counseling patient: Coding Level of Care Code 49903 Subseq Hosp Care Lvl 3 Diagnoses Acute renal failure N17.9 High serum osmolar gap R74.8 Acute hyponatremia E87.1
[2020-10-04] MEDS ORDERED: LORazepam 1 MG TAB PO PRN (10:02)
[2020-10-04] MEDS: cefTRIAXone SODIUM 2,000 MG in DEXTROSE 5% 50 ML IV SCH (11:20)
--- NOTE | 2020-10-04 15:27 | Hospitalist Progress Note ---
Date of Service October 04, 2020 Assessment & Plan (1) Alcohol withdrawal: Plan: severe withdrawal, delirium tremens over night on 10/04 now on Precedex with Ativan as well sedated today, monitor in ICU (2) BESSIE (acute kidney injury): Plan: significant injury with Cr > 5 on admission slowly improving with IV fluids Cr down to 1.5 K 3.3, Phos low at 1.5, will replace with ICU protocol avoid nephrotoxins he is non-oliguric nephrology managing, appreciate their input (3) Pneumonia: Plan: Bilateral lobar pneumonia- vaping and smoking history - Blood cultures: no growth - Continue Rocephin and doxycycline for total of 7 days spiking fevers? could be related to withdrawal, breathing is stable, no cough (4) Sepsis: Plan: SIRS 3, qSOFA 2 on admission - due to pneumonia urine and blood cultures negative (5) Alcohol use: Plan: AAWS coverage with Ativan limited options with renal function and hypotension at this time admits to drinking several shots of Fireball daily, could be more (6) Lactic acidosis: Plan: Sepsis with hypovolemia and BESSIE - received 1 liter of saline and 1 banana bag in EMD - Continue resuscitation based on urine output and lactate - stop IV fluids LA resolved (7) High serum osmolar gap: Plan: Ingestion possible- elevated triglycerides with ethyl alcohol on board- likely causing serum > calculated osm serum 286 - osmolar gap 278 Urine OSMO 238 - ethyl ETOH 22.9 - Lactate 3.8 - fomepizole given, stopped 10/03 (8) Hyponatremia: Plan: Hypovolemia hyponatremia with ETOH abuse likely, multifocal - Lipids sent with triglyceride 2028- likely adding to the above hyponatremia significantly - Na is 135 today after IV fluids for several days (9) Hypokalemia: Plan: Continue with ICU replacement protocol K is 3.3 (10) Narcotic abuse: Plan: Cotninue suboxone - ICU for pain control (11) HTN (hypertension): Plan: Hold ARB (12) Hyperglycemia: Plan: Glucose 269 on admission sugars well controlled on Novolog SS (13) Hypophosphatemia: Plan: 1.5, K phos ordered by ICU Admission and Anticipated Discharge Date Admission Date: October 01, 2020 Subjective patient deteriorated over night, much more agitated, required sedation and restraints changed back to ICU status, started on Precedex, much calmer labs today reviewed: Cr down to 1.5, K 3.3, phos 1.5, WBC normal had a fever last night cannot complete ROS this afternoon due to being sedated, sleeping very soundly appreciate ICU assistance Review of Systems Review of Systems: Unobtainable due to cognitive status and Unobtainable due to reduced consciousness Physical Exam Constitutional: well developed, + ill appearing, + obese, + altered mental status and + lethargic; no acute distress Neck: trachea midline, no thyromegaly Respiratory: normal respiratory effort, lungs clear to auscultation Cardiovascular: Rate/Rhythm: regular rhythm and + tachycardic Heart Sounds: normal S1 and normal S2; no murmur Vessels: no JVD Extremities: normal capillary refill; no edema Gastrointestinal (Abdomen): normal bowel sounds, soft, nontender, no hepatosplenomegaly Musculoskeletal: no cyanosis or clubbing, extremities motor strength 5/5 Skin: no rashes, warm and dry Neurologic: CN's II-XI intact bilaterally and moves all extremities; no focal motor deficits, + not awake (sleeping a lot) and not confused Psychiatric: Orientation: oriented x 3 and cooperative Results & Data Results & Data ([facility]) Vital Signs (Past 12 Hours) Vital Signs Temp Pulse Resp BP Pulse Ox 10/04/20 14:38 38.2 C H 93 H 133/80 98 10/04/20 12:38 37.4 C 89 128/81 98 10/04/20 10:38 37.0 C 89 23 109/64 95 10/04/20 09:11 36.7 C 90 24 127/80 96 10/04/20 08:08 36.4 C L 84 19 139/93 99 10/04/20 07:08 36.3 C L 83 16 124/94 99 10/04/20 06:38 36.4 C L 83 16 122/95 99 10/04/20 06:08 36.5 C 84 17 142/95 H 99 10/04/20 05:38 36.6 C 85 18 121/96 99 10/04/20 05:08 36.9 C 86 18 140/93 99 10/04/20 04:00 37.5 C 93 H 20 98 10/04/20 03:24 37.9 C H 105 H 34 H 97 Laboratory Results Laboratory Results - last 24 hr 07/20/21 07/20/21 07/21/21 16:33 20:00 04:34 WBC RBC Hgb Hct MCV MCH MCHC RDW Std Deviation RDW Coeff of Desiree Plt Count MPV Immature Gran % (Auto) Neut % (Auto) Lymph % (Auto) [place] % (Auto) Eos % (Auto) Baso % (Auto) Neut # (Auto) Lymph # (Auto) [place] # (Auto) Eos # (Auto) Baso # (Auto) Immature Gran # (Auto) Pappenheimer Bodies Stomatocytes Sodium 135 L Potassium 3.3 L Chloride 104 Carbon Dioxide 28 Anion Gap 3.0 BUN 7 D Creatinine 1.53 H D Est Cr Clr Drug Dosing 84.7 Est GFR ( Amer) 66.8 Est GFR (Non-Af Amer) 57.6 BUN/Creatinine Ratio 4.7 L Glucose 116 H POC Glucose 106 H 109 H Calcium 6.3 L Phosphorus 1.5 L* D Magnesium 1.3 L 10/04/20 10/04/20 04:34 11:13 WBC 7.85 RBC 2.96 L Hgb 9.6 L Hct 29.7 L MCV 100.3 H MCH 32.4 MCHC 32.3 RDW Std Deviation 49.9 H RDW Coeff of Desiree 13.9 Plt Count 151 MPV 9.5 Immature Gran % (Auto) 5.2 Neut % (Auto) 52.6 Lymph % (Auto) 32.2 [place] % (Auto) 7.5 Eos % (Auto) 1.7 Baso % (Auto) 0.8 Neut # (Auto) 4.13 Lymph # (Auto) 2.53 [place] # (Auto) 0.59 Eos # (Auto) 0.13 Baso # (Auto) 0.06 Immature Gran # (Auto) 0.41 H Pappenheimer Bodies 1+ Stomatocytes 1+ Sodium Potassium Chloride Carbon Dioxide Anion Gap BUN Creatinine Est Cr Clr Drug Dosing Est GFR ( Amer) Est GFR (Non-Af Amer) BUN/Creatinine Ratio Glucose POC Glucose 141 H Calcium Phosphorus Magnesium Medications Administered Current Inpatient Medications Acetaminophen (Acetaminophen 500 Mg Tab) 1,000 mg PO Q6H PRN PRN Reason: Pain or Fever Stop: 11/02/20 23:03 Last Admin: 10/03/20 23:09 Dose: 1,000 mg Documented by: Buprenorphine/Naloxone (Buprenorphine/Naloxone 8/2 Mg Tab) 1 tab SL BID BRENDA Stop: 10/31/20 20:59 Last Admin: 10/04/20 09:05 Dose: 1 tab Documented by: Dextrose (Dextrose 50% 50 Ml Syringe) 25 - 50 ml IV UD PRN; Protocol PRN Reason: Hypoglycemia Protocol Stop: 11/01/20 10:29 Glucagon (Glucagon For Inj 1 Mg Vial) 1 mg IM UD PRN; Protocol PRN Reason: Hypoglycemia Protocol Stop: 11/01/20 10:29 Glucose (Glucose 40% Gel 15 Gm Tube) 15 - 30 gm PO UD PRN; Protocol PRN Reason: Hypoglycemia Protocol Stop: 11/01/20 10:29 Glucose (Glucose 10 Tabs/Tube) 4 - 8 tabs PO UD PRN; Protocol PRN Reason: Hypoglycemia Protocol Stop: 11/01/20 10:29 Heparin Sodium (Porcine) (Heparin Sod 5,000 Unit/0.5 Ml Vial) 5,000 units SQ Q8 [facility]ENDA Stop: 10/31/20 15:44 Last Admin: 10/04/20 12:44 Dose: 5,000 units Documented by: Ceftriaxone Sodium 2,000 mg/ (Dextrose) 70 mls @ 100 mls/hr IV Q24H [facility]; Protocol Stop: 10/09/20 11:59 Last Infusion: 10/04/20 12:05 Dose: Infused Documented by: Folic Acid 1 mg/ Syringe 10 mls @ 5 mls/min IV QAM [facility] Stop: 10/31/20 15:44 Last Admin: 10/04/20 09:02 Dose: 5 mls/min Documented by: Doxycycline Hyclate 100 mg/ (Dextrose) 110 mls @ 50 mls/hr IV Q12H [facility] Stop: 10/08/20 17:29 Last Infusion: 10/04/20 07:29 Dose: Infused Documented by: Sodium Chloride (1/2 Nss) 1,000 mls @ 125 mls/hr IV .Q8H [facility] Stop: 10/31/20 22:29 Last Infusion: 10/04/20 12:04 Dose: 125 mls/hr Documented by: Dexmedetomidine HCl 400 mcg/ (Sodium Chloride) 100 mls @ 8.085 mls/hr IV .[id number] [facility]; Protocol Stop: 10/08/20 03:44 Last Admin: 10/04/20 11:24 Dose: 0.3 mcg/kg/hr, 8.1 mls/hr Documented by: Lorazepam (Ativan) 1 mg in 2 mls @ 2 mls/min IV UD PRN; Protocol PRN Reason: EtOH Withdrawl AWSS Score 6,7 Stop: 11/03/20 10:01 Lorazepam (Ativan) 2 mg in 4 mls @ 4 mls/min IV UD PRN; Protocol PRN Reason: EtOH Withdrawl AWSS Score 8,9 Stop: 11/03/20 10:01 Lorazepam (Ativan) 3 mg in 6 mls @ 4 mls/min IV ONCE PRN; Protocol PRN Reason: EtOH Withdrawl AWSS Score >=10 Stop: 11/03/20 10:01 Insulin Aspart (Insulin Aspart 100 Units/Ml 3 Ml Pen) 0 units SC ACHS [facility] Stop: 11/01/20 11:29 Last Admin: 10/04/20 11:17 Dose: 1 units Documented by: Metoprolol Tartrate (Metoprolol Tartrate 25 Mg Tab) 12.5 mg PO BID [facility] Stop: 11/01/20 08:59 Last Admin: 10/04/20 09:02 Dose: 12.5 mg Documented by: Miscellaneous (Carbohydrates For Hypoglycemia ) 15 - 30 gm PO UD PRN PRN Reason: Hypoglycemia Treatment Stop: 11/01/20 10:29 Miscellaneous (Remove Nicoderm Patch) 1 ea N/A DAILY@[id number] [facility] Stop: 11/02/20 08:58 Last Admin: 10/04/20 09:01 Dose: 1 ea Documented by: Multivitamins (Multivitamin Tab) 1 tab PO QAM [facility] Stop: 11/01/20 08:59 Last Admin: 10/04/20 09:02 Dose: 1 tab Documented by: Nicotine (Nicotine 21 Mg/24 Hr Tdsy) 21 mg TD QAM [facility] Stop: 11/02/20 08:59 Last Admin: 10/04/20 09:02 Dose: 21 mg Documented by: Thiamine HCl (Thiamine Hcl 100 Mg Tab) 300 mg PO QAM [facility] Stop: 10/31/20 15:44 Last Admin: 10/04/20 09:02 Dose: 300 mg Documented by: PG Care Time/CCT Total # of Minutes Spent Total Time Spent with Patient: Total time spent is greater than 50% in coordination of care (as documented) at patient's floor/unit and/or counseling patient: Coding Level of Care Code 88899 Subseq Hosp Care Lvl 3 Diagnoses Alcohol withdrawal F10.239 BESSIE (acute kidney injury) N17.9 Pneumonia J18.9 Sepsis A41.9 Alcohol use Z72.89 Lactic acidosis E87.2 High serum osmolar gap R74.8 Hyponatremia E87.1 Hypokalemia E87.6 Narcotic abuse F11.10 HTN (hypertension) I10 Hyperglycemia R73.9 Hypophosphatemia E83.39
[2020-10-04] MEDS: LORazepam 2 MG/4 ML VIAL IV PRN ×2 (16:02→17:43)
[2020-10-04] MEDS: ACETAMINOPHEN 500 MG TAB PO PRN (17:51)
[2020-10-05] MEDS: SODIUM CHLORIDE 0.45 % 1,000 ML IV SCH ×4 (00:01→20:34)
[2020-10-05] MEDS: ACETAMINOPHEN 500 MG TAB PO PRN (00:01)
[2020-10-05] MEDS: LORazepam 2 MG/4 ML VIAL IV PRN ×5 (00:01→23:17)
[2020-10-05] MEDS: DEXMEDETOMIDINE HCL 400 MCG in 0.9 % SODIUM CHLORIDE 96 ML IV SCH ×4 (04:52→11:07)
[2020-10-05 05:22] LABS: Hematocrit (blood only) 32.4 % (42-52); Hemoglobin 9.9 g/dL (14.0-18.0); Mean Corpuscular Hemoglobin 31.6 pg (25-34); Mean Corpuscular Hgb Conc 30.6 g/dL (32-36); Mean Corpuscular Volume 103.5 fL (80-100); Mean Platelet Volume 10.2 fL (7.4-10.4); Nucleated RBC # (auto) 0.06 K/uL (0-0); Nucleated RBC % (auto) 0.7 %; Platelet Count 163 K/uL (130-400); RDW Standard Deviation 52.6 fL (36.4-46.3); Red Blood Count 3.13 M/uL (4.7-6.1); White Blood Count 8.38 K/uL (4.8-10.8)
[2020-10-05] MEDS: HEPARIN SOD 5,000 UNIT/0.5 ML VIAL SQ SCH ×3 (05:37→20:22)
[2020-10-05] MEDS: LORazepam 1 MG/2 ML VIAL IV PRN (05:37)
[2020-10-05] MEDS: DOXYCYCLINE HYCLATE 100 MG in DEXTROSE 5% 100 ML IV SCH ×2 (05:37→17:07)
[2020-10-05 05:56] LABS: BUN Creatinine Ratio 3.4 (10-20); Est GFR (Non-African American) 75.1 ml/min; Magnesium 1.7 mg/dl (1.8-2.4); Potassium 3.8 mmol/L (3.5-5.1)
[2020-10-05] MEDS ORDERED: POTASSIUM PHOS 3 MMOL/1 ML INFUSION IV STA (06:18)
[2020-10-05 06:38] LABS: ALC (manual) 3.31 K/uL (1.2-3.4); ANC (manual) 2.87 K/uL (1.4-6.5); Basophils # (manual) 0.29 K/uL (0-0.2); Basophils % (manual) 3.5 %; Eosinophils # (manual) 0.37 K/uL (0-0.5); Eosinophils % (manual) 4.4 %; Howell-Jolly Bodies 1+; Lymphocytes # (manual) 3.31 K/uL (1.2-3.4); Lymphocytes % (manual) 39.5 %; Metamyelocytes # (manual) 0.74 K/uL (0-0); Metamyelocytes % (manual) 8.8 %; Monocytes # (manual) 0.29 K/uL (0.11-0.59); Monocytes % (manual) 3.5 %; Myelocytes # (manual) 0.51 K/uL (0-0); Myelocytes % (manual) 6.1 %; Neutrophils # (manual) 2.87 K/uL (1.4-6.5); Neutrophils % (manual) 34.2 %; Pappenheimer Bodies 1+; Polychromasia 1+; Stomatocytes 1+
[2020-10-05] MEDS ORDERED: POTASSIUM PHOSPHATE 15 MMOL in SODIUM CHLORIDE 0.9% 250 ML IV ONE (06:45)
[2020-10-05] MEDS: MAGNESIUM SULFATE / D5W 1 GM/100 ML BAG IV SCH ×4 (06:45→13:18)
[2020-10-05] MEDS: LORazepam 3 MG/6 ML VIAL IV PRN ×4 (08:16→21:45)
[2020-10-05] MEDS: INSULIN ASPART 100 UNITS/ML 3 ML PEN SC SCH ×4 (08:17→20:33)
[2020-10-05] MEDS: METOPROLOL TARTRATE 25 MG TAB PO SCH ×2 (08:23→20:23)
[2020-10-05] MEDS: FOLIC ACID 1 MG in SYRINGE 9.8 ML IV SCH (08:23)
[2020-10-05] MEDS: NICOTINE 21 MG/24 HR TDSY TD SCH ×2 (08:24→08:34)
[2020-10-05] MEDS: THIAMINE HCL 100 MG TAB PO SCH (08:24)
[2020-10-05] MEDS: MULTIVITAMIN TAB PO SCH (08:25)
[2020-10-05] MEDS: BUPRENORPHINE/NALOXONE 8/2 MG TAB SL SCH ×2 (08:47→20:23)
--- NOTE | 2020-10-05 10:31 | Critical Care Progress Note ---
Date of Service October 05, 2020 Assessment & Plan (1) Acute hyponatremia: Plan: Impression: 35-year-old male presents to the ICU with acute hyponatremia, BESSIE, and severe electrolyte abnormalities Neuro - Alcohol abuseContinue alcohol withdrawal protocol. Continue folic acid, thiamine and multivitamin. Aiming to wean Precedex off. Cardiac -no acute issues Respiratory -continue antibiotic therapy for pneumonia. Currently saturating well on 2 L nasal cannula. GI -advance diet as tolerated. Hypertriglyceridemia noted. Will repeat triglyceride level today. RENAL/LYTES - BESSIE, osmolar gap and hyponatremia have resolved. - Foleystrict I's and O's ENDO - No history of diabetes or thyroid disease ICU hyperglycemic protocol HEME - H&H stable, monitor routine CBCs ID - Sepsis?Likely pulmonary source considering bilateral infiltrate seen on chest imaging. He was recently seen in the ER and placed on oral antibiotics -Elevated WBC, pro calcitonin and lactate consistent with sepsis. No evidence of septic shock at this time -Blood cultures pending, UA unremarkable -COVID-19 negative -Nasal MRSA negative -Lyme disease inconclusive, Western blot pending -Continue ceftriaxone, doxycycline for 5 days LINES/IV ACCESS - Central venous catheter. We will aim to remove central venous catheter. DVT PROPHYLAXIS - SCDs, Heparin subc (2) Alcohol withdrawal delirium: (3) Bilateral pneumonia: (4) Acute renal failure: (5) Sepsis: (6) Lactic acidosis: (7) Acute hypokalemia: (8) High serum osmolar gap: (9) Alcohol use: (10) HTN (hypertension): Admission and Anticipated Discharge Date Admission Date: October 01, 2020 Subjective Patient seen and examined this morning. He is a little more awake and alert. H e follows commands and understands that he is in the hospital. He is currently on Precedex. He has been receiving Ativan overnight. He is delirious at times per nursing. Review of Systems Review of Systems: 12/28 point ROS negative unless noted elsewhere Physical Exam Constitutional: + obese and cooperative Eyes: PERRL, conjunctivae normal, anicteric sclerae ENMT: external ear and nose normal, oropharynx normal Neck: trachea midline, no thyromegaly Respiratory: Rhonchi auscultated bilaterally, symmetrical chest wall movement, nonlabored breathing Cardiovascular: Tachycardia, S1-S2 auscultated, no chest pain, no edema, no JVD Gastrointestinal (Abdomen): normal bowel sounds, soft, nontender, no hepatosplenomegaly Musculoskeletal: no cyanosis or clubbing, extremities motor strength 5/5 Tremors in upper extremities Skin: no rashes, warm and dry Neurologic: Confused and experiencing hallucinations and delusions along with tremors. Neurological exam otherwise unremarkable Results & Data Results & Data ([facility]) Vital Signs (Past 12 Hours) Vital Signs Temp Pulse Pulse Resp BP BP Pulse Ox 10/05/20 05:38 100.6 F H 87 121/84 97 10/05/20 04:38 100.6 F H 87 117/82 96 10/05/20 03:38 100.4 F H 87 135/81 97 10/05/20 02:38 100.4 F H 87 116/83 97 10/05/20 01:38 100.6 F H 87 125/82 97 10/05/20 00:38 100.8 F H 89 124/81 96 10/04/20 23:58 100.8 F H 93 H 28 H 117/74 97 10/04/20 23:38 100.9 F H 90 117/74 97 10/04/20 22:53 91 H 10/04/20 22:38 101.1 F H 90 112/73 97 Vital signs, labs and imaging personally reviewed Coding Level of Care Code 00095 Subseq Hosp Care Lvl 3 Diagnoses Acute hyponatremia E87.1 Bilateral pneumonia J18.9 Acute renal failure N17.9 Sepsis A41.9 Lactic acidosis E87.2 Acute hypokalemia E87.6 High serum osmolar gap R74.8 Alcohol use Z72.89 HTN (hypertension) I10 Alcohol withdrawal delirium F10.231
[2020-10-05] MEDS: cefTRIAXone SODIUM 2,000 MG in DEXTROSE 5% 50 ML IV SCH (13:08)
--- NOTE | 2020-10-05 14:47 | Hospitalist Progress Note ---
Date of Service October 05, 2020 Assessment & Plan (1) Alcohol withdrawal: Plan: severe withdrawal, delirium tremens over night on 10/04 treated with Precedex and Ativan will stop Precedex today, change back to PCU status continue Ativan PRN (2) BESSIE (acute kidney injury): Plan: significant injury with Cr > 5 on admission rapidly improved with IV fluids Cr down to 1.2 K 3.8, Phos low at 2.0, mag 1.7 calcium low at 6.0 avoid nephrotoxins he is non-oliguric, will pull padilla catheter (3) Pneumonia: Plan: Bilateral lobar pneumonia- vaping and smoking history - Blood cultures: no growth - Continue Rocephin and doxycycline for total of 7 days spiking fevers? could be related to withdrawal, breathing is stable, no cough WBC normal (4) Sepsis: Plan: SIRS 3, qSOFA 2 on admission - due to pneumonia urine and blood cultures negative (5) Alcohol use: Plan: AAWS coverage with Ativan admits to drinking several shots of Fireball daily, could be more (6) Lactic acidosis: Plan: Sepsis with hypovolemia and BESSIE - received 1 liter of saline and 1 banana bag in EMD - Continue resuscitation based on urine output and lactate - stop IV fluids LA resolved (7) High serum osmolar gap: Plan: Ingestion possible- elevated triglycerides with ethyl alcohol on board- likely causing serum > calculated osm serum 286 - osmolar gap 278 Urine OSMO 238 - ethyl ETOH 22.9 - Lactate 3.8 - fomepizole given, stopped 10/03 (8) Hyponatremia: Plan: Hypovolemia hyponatremia with ETOH abuse likely, multifocal - Lipids sent with triglyceride 2028- likely adding to the above hyponatremia significantly - Na 136 (9) Hypokalemia: Plan: Continue with ICU replacement protocol K is 3.8 (10) Narcotic abuse: Plan: Cotninue suboxone - ICU for pain control (11) HTN (hypertension): Plan: Hold ARB (12) Hyperglycemia: Plan: Glucose 269 on admission sugars well controlled on Novolog SS (13) Hypophosphatemia: Plan: 2.0, K phos ordered by ICU (14) Hypocalcemia: Plan: 6.0, replace as needed Admission and Anticipated Discharge Date Admission Date: October 01, 2020 Subjective patient doing a little better today, will stop Precedex per ICU, still use Ativan PRN he is sleeping a lot, breathing easy still no appetite, encouraged him to eat something, has not eaten for days reviewed labs, Cr 1.2, Mag 1.7, Phos 2.0, K 3.8, will remove padilla cath WBC normal, Hb stable still spiking fevers Review of Systems Review of Systems: All systems reviewed & are unremarkable except as noted in Subjective Constitutional: + fever, + sweats, + fatigue and + weakness Respiratory: no cough and no dyspnea Cardiovascular: no chest pain and no edema Gastrointestinal: no abdominal pain, no nausea, no vomiting, no constipation and no diarrhea/loose stools Physical Exam Constitutional: well developed, + ill appearing, + obese and + lethargic; no acute distress Neck: trachea midline, no thyromegaly Respiratory: normal respiratory effort, lungs clear to auscultation Cardiovascular: Rate/Rhythm: regular rhythm and + tachycardic Heart Sounds: normal S1 and normal S2; no murmur Vessels: no JVD Extremities: normal capillary refill; no edema Gastrointestinal (Abdomen): normal bowel sounds, soft, nontender, no hepatosplenomegaly Musculoskeletal: no cyanosis or clubbing, extremities motor strength 5/5 Skin: no rashes, warm and dry Neurologic: CN's II-XI intact bilaterally and moves all extremities; no focal motor deficits, + not awake (sleeping a lot) and not confused Psychiatric: Orientation: oriented x 3 and cooperative Results & Data Results & Data ([facility]) Vital Signs (Past 12 Hours) Vital Signs Temp Pulse BP Pulse Ox 10/05/20 13:38 38.1 C H 89 129/85 99 10/05/20 12:38 37.9 C H 86 146/94 H 90 10/05/20 11:38 37.8 C H 87 135/84 87 L 10/05/20 10:38 37.7 C H 84 130/82 91 10/05/20 09:38 37.8 C H 83 127/86 93 10/05/20 08:38 38.3 C H 87 125/105 H 93 10/05/20 08:00 88 10/05/20 07:38 38.2 C H 97 H 140/91 97 10/05/20 05:38 38.1 C H 87 121/84 97 10/05/20 04:38 38.1 C H 87 117/82 96 10/05/20 03:38 38.0 C H 87 135/81 97 10/05/20 02:38 38.0 C H 87 116/83 97 Laboratory Results Laboratory Results - last 24 hr 10/01/20 10/04/20 10/04/20 12:08 15:48 20:27 WBC RBC Hgb Hct MCV MCH MCHC RDW Std Deviation RDW Coeff of Desiree Plt Count MPV Absolute Nucleated RBC Nucleated RBC % (auto) Neutrophils % (Manual) Lymphocytes % (Manual) Monocytes % (Manual) Eosinophils % (Manual) Basophils % (Manual) Metamyelocytes % (Man) Myelocytes % (Man) Neutrophils # (Manual) Total Absolute Neuts Lymphocytes # (Manual) Total Abs Lymphocytes Monocytes # (Manual) Eosinophils # (Manual) Basophils # (Manual) Metamyelocytes # (Man) Myelocytes # (Manual) Polychromasia Pappenheimer Bodies Stomatocytes [place] Bodies Sodium Potassium Chloride Carbon Dioxide Anion Gap BUN Creatinine Est Cr Clr Drug Dosing Est GFR ( Amer) Est GFR (Non-Af Amer) BUN/Creatinine Ratio Glucose POC Glucose 100 H 108 H Calcium Ionized Calcium Phosphorus Magnesium Triglycerides Procalcitonin Ethylene Glycol <10.0 10/05/20 10/05/20 10/05/20 05:08 05:08 10:06 WBC 8.38 RBC 3.13 L Hgb 9.9 L Hct 32.4 L MCV 103.5 H MCH 31.6 MCHC 30.6 L RDW Std Deviation 52.6 H RDW Coeff of Desiree 14.0 Plt Count 163 MPV 10.2 Absolute Nucleated RBC 0.06 H Nucleated RBC % (auto) 0.7 Neutrophils % (Manual) 34.2 Lymphocytes % (Manual) 39.5 Monocytes % (Manual) 3.5 Eosinophils % (Manual) 4.4 Basophils % (Manual) 3.5 Metamyelocytes % (Man) 8.8 Myelocytes % (Man) 6.1 Neutrophils # (Manual) 2.87 Total Absolute Neuts 2.87 Lymphocytes # (Manual) 3.31 Total Abs Lymphocytes 3.31 Monocytes # (Manual) 0.29 Eosinophils # (Manual) 0.37 Basophils # (Manual) 0.29 H Metamyelocytes # (Man) 0.74 H Myelocytes # (Manual) 0.51 H Polychromasia 1+ Pappenheimer Bodies 1+ Stomatocytes 1+ Davis-Or[place] Bodies 1+ Sodium 136 Potassium 3.8 D Chloride 107 Carbon Dioxide 24 Anion Gap 5.0 BUN 4 L Creatinine 1.23 D Est Cr Clr Drug Dosing 106.0 Est GFR ( Amer) 87.0 Est GFR (Non-Af Amer) 75.1 BUN/Creatinine Ratio 3.4 L Glucose 92 POC Glucose Calcium 6.0 L Ionized Calcium Phosphorus 2.0 L Magnesium 1.7 L Triglycerides Procalcitonin 0.29 Ethylene Glycol 10/05/20 10/05/20 10/05/20 10:06 10:07 11:41 WBC RBC Hgb Hct MCV MCH MCHC RDW Std Deviation RDW Coeff of Desiree Plt Count MPV Absolute Nucleated RBC Nucleated RBC % (auto) Neutrophils % (Manual) Lymphocytes % (Manual) Monocytes % (Manual) Eosinophils % (Manual) Basophils % (Manual) Metamyelocytes % (Man) Myelocytes % (Man) Neutrophils # (Manual) Total Absolute Neuts Lymphocytes # (Manual) Total Abs Lymphocytes Monocytes # (Manual) Eosinophils # (Manual) Basophils # (Manual) Metamyelocytes # (Man) Myelocytes # (Manual) Polychromasia Pappenheimer Bodies Stomatocytes [place] Bodies Sodium Potassium Chloride Carbon Dioxide Anion Gap BUN Creatinine Est Cr Clr Drug Dosing Est GFR ( Amer) Est GFR (Non-Af Amer) BUN/Creatinine Ratio Glucose POC Glucose 101 H Calcium Ionized Calcium 0.83 L Phosphorus Magnesium Triglycerides 201 H Procalcitonin Ethylene Glycol Medications Administered Current Inpatient Medications Acetaminophen (Acetaminophen 500 Mg Tab) 1,000 mg PO Q6H PRN PRN Reason: Pain or Fever Stop: 11/02/20 23:03 Last Admin: 10/05/20 00:01 Dose: 1,000 mg Documented by: Buprenorphine/Naloxone (Buprenorphine/Naloxone 8/2 Mg Tab) 1 tab SL BID [facility]ENDA Stop: 10/31/20 20:59 Last Admin: 10/05/20 08:47 Dose: 1 tab Documented by: Dextrose (Dextrose 50% 50 Ml Syringe) 25 - 50 ml IV UD PRN; Protocol PRN Reason: Hypoglycemia Protocol Stop: 11/01/20 10:29 Folic Acid (Folic Acid 1 Mg Tab) 1 mg PO QAM [facility] Stop: 11/05/20 08:59 Glucagon (Glucagon For Inj 1 Mg Vial) 1 mg IM UD PRN; Protocol PRN Reason: Hypoglycemia Protocol Stop: 11/01/20 10:29 Glucose (Glucose 40% Gel 15 Gm Tube) 15 - 30 gm PO UD PRN; Protocol PRN Reason: Hypoglycemia Protocol Stop: 11/01/20 10:29 Glucose (Glucose 10 Tabs/Tube) 4 - 8 tabs PO UD PRN; Protocol PRN Reason: Hypoglycemia Protocol Stop: 11/01/20 10:29 Heparin Sodium (Porcine) (Heparin Sod 5,000 Unit/0.5 Ml Vial) 5,000 units SQ Q8 [facility]EN[facility] Stop: 10/31/20 15:44 Last Admin: 10/05/20 13:09 Dose: 5,000 units Documented by: Ceftriaxone Sodium 2,000 mg/ (Dextrose) 70 mls @ 100 mls/hr IV Q24H [facility]; Protocol Stop: 10/09/20 11:59 Last Infusion: 10/05/20 13:52 Dose: Infused Documented by: Doxycycline Hyclate 100 mg/ (Dextrose) 110 mls @ 50 mls/hr IV Q12H [facility] Stop: 10/08/20 17:29 Last Infusion: 10/05/20 08:22 Dose: Infused Documented by: Sodium Chloride (1/2 Nss) 1,000 mls @ 125 mls/hr IV .Q8H [facility] Stop: 10/31/20 22:29 Last Admin: 10/05/20 08:39 Dose: 125 mls/hr Documented by: Lorazepam (Ativan) 1 mg in 2 mls @ 2 mls/min IV UD PRN; Protocol PRN Reason: EtOH Withdrawl AWSS Score 6,7 Stop: 11/03/20 10:01 Last Admin: 10/05/20 05:37 Dose: 2 mls/min Documented by: Lorazepam (Ativan) 2 mg in 4 mls @ 4 mls/min IV UD PRN; Protocol PRN Reason: EtOH Withdrawl AWSS Score 8,9 Stop: 11/03/20 10:01 Last Admin: 10/05/20 13:09 Dose: 4 mls/min Documented by: Lorazepam (Ativan) 3 mg in 6 mls @ 4 mls/min IV ONCE PRN; Protocol PRN Reason: EtOH Withdrawl AWSS Score >=10 Stop: 11/03/20 10:01 Last Admin: 10/05/20 08:16 Dose: 4 mls/min Documented by: Insulin Aspart (Insulin Aspart 100 Units/Ml 3 Ml Pen) 0 units SC ACHS [facility] Stop: 11/01/20 11:29 Last Admin: 10/05/20 11:51 Dose: Not Given Documented by: Metoprolol Tartrate (Metoprolol Tartrate 25 Mg Tab) 12.5 mg PO BID [facility] Stop: 11/01/20 08:59 Last Admin: 10/05/20 08:23 Dose: 12.5 mg Documented by: Miscellaneous (Carbohydrates For Hypoglycemia ) 15 - 30 gm PO UD PRN PRN Reason: Hypoglycemia Treatment Stop: 11/01/20 10:29 Multivitamins ([facility]ivitamin Tab) [facility] [place] [place] Stop: 11/01/20 08:59 Last Admin: 10/05/20 08:25 Dose: 1 tab Documented by: Nicotine Polacrilex (Nicotine Polacrilex 2 Mg Gum) 1 piece MT Q1H PRN PRN Reason: nicotine cravings Stop: 11/04/20 10:11 Thiamine HCl (Thiamine Hcl 100 Mg Tab) [facility] [place] [place] Stop: 10/31/20 15:44 Last Admin: 10/05/20 08:24 Dose: 300 mg Documented by: PG Care Time/CCT Total # of Minutes Spent Total Time Spent with Patient: Total time spent is greater than 50% in coordination of care (as documented) at patient's floor/unit and/or counseling patient: Coding Level of Care Code 04067 Subseq Hosp Care Lvl 3 Diagnoses Alcohol withdrawal F10.239 BESSIE (acute kidney injury) N17.9 Pneumonia J18.9 Sepsis A41.9 Alcohol use Z72.89 Lactic acidosis E87.2 High serum osmolar gap R74.8 Hyponatremia E87.1 Hypokalemia E87.6 Narcotic abuse F11.10 HTN (hypertension) I10 Hyperglycemia R73.9 Hypophosphatemia E83.39 Hypocalcemia E83.51
[2020-10-05] MEDS ORDERED: CALCIUM GLUCONATE 10% 1,000 MG in SODIUM CHLORIDE 0.9% 50 ML IV ONE (18:00)
[2020-10-05] MEDS: NICOTINE POLACRILEX 2 MG GUM MT PRN ×2 (18:19→21:41)
[2020-10-05] MEDS: metroNIDAZOLE 500 MG/100 ML BAG IV SCH (18:24)
--- NOTE | 2020-10-05 19:43 | XRay Report ---
XR chest 1V portable CLINICAL HISTORY: fever COMPARISON STUDY: October 01, 2020 FINDINGS: No pneumothorax. No pleural effusion. Bilateral lung volumes are decreased with crowded lung markings. Mild atelectasis is seen at bilatera l bases. Cardiomediastinal silhouette is prominent which could be due to low inspiratory effort and portable t echnique. No significant pulmonary vascular congestion.. Osseous structures: unremarkable IMPRESSION: 1. Mild atelectasis at bilateral bases. Low inspiratory effort which limits evaluation. ACT 112: Negative or not required by law. The above report was generated using voice recognition software. It may contain grammatical, syntax o r spelling errors. Electronically signed by: Violeta Del Toro DO 10/05/2020 7:42 PM
[2020-10-06] MEDS: LORazepam 2 MG/4 ML VIAL IV PRN ×5 (01:55→23:44)
[2020-10-06] MEDS: metroNIDAZOLE 500 MG/100 ML BAG IV SCH ×3 (01:55→19:00)
[2020-10-06 03:18] LABS: 18KDIGG Band NON-REACTIVE; 23KDIGG Band NON-REACTIVE; 23KDIGM Band NON-REACTIVE; 28KDIGG Band NON-REACTIVE; 30KDIGG Band NON-REACTIVE; 39KDIGG Band NON-REACTIVE; 39KDIGM Band NON-REACTIVE; 41KDIGG Band NON-REACTIVE; 41KDIGM Band NON-REACTIVE; 45KDIGG Band NON-REACTIVE; 58KDIGG Band NON-REACTIVE; 66KDIGG Band NON-REACTIVE; 93KDIGG Band NON-REACTIVE; Lyme Antibodies, WB IgG NEGATIVE (NEGATIVE); Lyme Antibodies, WB IgM NEGATIVE (NEGATIVE)
[2020-10-06] MEDS: LORazepam 3 MG/6 ML VIAL IV PRN (03:23)
[2020-10-06] MEDS: ACETAMINOPHEN 500 MG TAB PO PRN ×2 (03:28→23:33)
[2020-10-06 05:39] LABS: BUN Creatinine Ratio 2.9 (10-20); Calcium 6.3 mg/dl (8.5-10.1); Creatinine Clr Calc Pharmacy 129.1 ml/min; Est GFR (African American) 110.4 ml/min; Est GFR (Non-African American) 95.2 ml/min; Magnesium 1.7 mg/dl (1.8-2.4); Potassium 3.8 mmol/L (3.5-5.1)
[2020-10-06] MEDS: DOXYCYCLINE HYCLATE 100 MG in DEXTROSE 5% 100 ML IV SCH ×2 (05:43→16:55)
[2020-10-06] MEDS: HEPARIN SOD 5,000 UNIT/0.5 ML VIAL SQ SCH ×3 (05:43→21:03)
[2020-10-06 05:50] LABS: Phosphorus 1.2 mg/dl (2.5-4.9)
[2020-10-06] MEDS ORDERED: POTASSIUM PHOS 3 MMOL/1 ML INFUSION IV STA (05:53)
[2020-10-06] MEDS ORDERED: POTASSIUM PHOSPHATE 30 MMOL in SODIUM CHLORIDE 0.9% 500 ML IV ONE (06:00)
[2020-10-06] MEDS: INSULIN ASPART 100 UNITS/ML 3 ML PEN SC SCH ×4 (07:15→21:03)
[2020-10-06] MEDS: METOPROLOL TARTRATE 25 MG TAB PO SCH ×2 (07:16→21:02)
[2020-10-06] MEDS: THIAMINE HCL 100 MG TAB PO SCH (07:17)
[2020-10-06] MEDS: FOLIC ACID 1 MG TAB PO SCH (07:18)
[2020-10-06] MEDS: MULTIVITAMIN TAB PO SCH (07:18)
[2020-10-06] MEDS: BUPRENORPHINE/NALOXONE 8/2 MG TAB SL SCH ×2 (07:20→21:02)
[2020-10-06 11:26] LABS: Appearance Urine Clear (Clear); Bilirubin Urine Negative (Negative); Blood Urine Negative (Negative); Color Urine Dark Yellow; Glucose Urine UA Negative (Negative); Ketones Urine Trace (Negative); Leukocyte Esterase Urine Negative (Negative); Nitrite Urine Negative (Negative); Protein Urine Negative (Negative); Specific Gravity Urine 1.012 (1.000-1.030); Urobilinogen Urine Negative (Negative); pH Urine 5.5 (4.5-7.5)
[2020-10-06] MEDS: cefTRIAXone SODIUM 2,000 MG in DEXTROSE 5% 50 ML IV SCH (12:33)
--- NOTE | 2020-10-06 15:21 | Hospitalist Progress Note ---
Date of Service October 06, 2020 Assessment & Plan (1) Alcohol withdrawal: Plan: severe withdrawal, delirium tremens over night on 10/04 treated with Precedex and Ativan stopped Precedex 10/05, changed back to PCU status continue Ativan PRN, requiring doses today sleeping a lot, calm but then has periods of agitation (2) BESSIE (acute kidney injury): Plan: significant injury with Cr > 5 on admission rapidly improved with IV fluids Cr down to 1.0 K 3.8, Phos low at 1.8, mag 1.7 K phos 30mmol IV mag sulfate 1gm IV calcium low at 6.3 avoid nephrotoxins he is non-oliguric, voiding on his own (3) Pneumonia: Plan: Bilateral lobar pneumonia- vaping and smoking history - initial blood cultures: no growth - Continue Rocephin and doxycycline spiking fevers? could be related to withdrawal, breathing is stable, no cough WBC was normal, repeat tomorrow UA on 10/05 was normal, CXR 10/05 was normal repeat blood cultures drawn 10/05, follow up results (4) Sepsis: Plan: SIRS 3, qSOFA 2 on admission - due to pneumonia urine and blood cultures negative (5) Alcohol use: Plan: AAWS coverage with Ativan admits to drinking several shots of Fireball daily, could be more (6) Lactic acidosis: Plan: Sepsis with hypovolemia and BESSIE - received 1 liter of saline and 1 banana bag in EMD - Continue resuscitation based on urine output and lactate - stop IV fluids LA resolved (7) High serum osmolar gap: Plan: Ingestion possible- elevated triglycerides with ethyl alcohol on board- likely causing serum > calculated osm serum 286 - osmolar gap 278 Urine OSMO 238 - ethyl ETOH 22.9 - Lactate 3.8 - fomepizole given, stopped 10/03 (8) Hyponatremia: Plan: Hypovolemia hyponatremia with ETOH abuse likely, multifocal - Lipids sent with triglyceride 2028- likely adding to the above hyponatremia significantly - Na 136 (9) Hypokalemia: Plan: K is 3.8 (10) Narcotic abuse: Plan: Cotninue suboxone (11) HTN (hypertension): Plan: BP acceptable (12) Hyperglycemia: Plan: Glucose 269 on admission sugars well controlled on Novolog SS (13) Hypophosphatemia: Plan: 1.8, 30 mmol of K phos (14) Hypocalcemia: Plan: 6.3 (15) Hypomagnesemia: Plan: 1.7, 1gm IV mag sulfate Admission and Anticipated Discharge Date Admission Date: October 01, 2020 Subjective patient wanted to leave AMA this morning, then he fell back asleep needed Ativan 2mg IV this afternoon for withdrawal, sleeping a lot reviewed labs, Phos and Mag low he is moving his bowels, making urine, padilla is out, central line out Review of Systems Review of Systems: All systems reviewed & are unremarkable except as noted in Subjective Constitutional: + fatigue and + weakness Cardiovascular: no chest pain Gastrointestinal: no abdominal pain, no nausea, no vomiting, no constipation and no diarrhea/loose stools Physical Exam Constitutional: well developed, + ill appearing, + obese and + lethargic; no acute distress Neck: trachea midline, no thyromegaly Respiratory: normal respiratory effort, lungs clear to auscultation Cardiovascular: Rate/Rhythm: regular rhythm and + tachycardic Heart Sounds: normal S1 and normal S2; no murmur Vessels: no JVD Extremities: normal capillary refill; no edema Gastrointestinal (Abdomen): normal bowel sounds, soft, nontender, no hepatosplenomegaly Musculoskeletal: no cyanosis or clubbing, extremities motor strength 5/5 Skin: no rashes, warm and dry Neurologic: CN's II-XI intact bilaterally and moves all extremities; no focal motor deficits, + not awake (sleeping a lot) and not confused Psychiatric: Orientation: oriented x 3 and cooperative Results & Data Results & Data ([facility]) Vital Signs (Past 12 Hours) Vital Signs Temp Pulse Resp BP Pulse Ox 10/06/20 13:23 37.2 C 10/06/20 12:00 104 H 132/88 96 10/06/20 10:00 99 H 10/06/20 08:10 37 C 10/06/20 08:00 107 H 20 145/89 H 99 10/06/20 07:00 132 H 10/06/20 04:54 37.8 C H 10/06/20 03:38 38.4 C H 120 H 128/75 93 Laboratory Results Laboratory Results - last 24 hr 10/01/20 10/01/20 10/05/20 09:20 10:33 16:56 Sodium Potassium Chloride Carbon Dioxide Anion Gap BUN Creatinine Est Cr Clr Drug Dosing Est GFR ( Amer) Est GFR (Non-Af Amer) BUN/Creatinine Ratio Glucose POC Glucose 102 H Calcium Phosphorus Magnesium Urine Color Urine Appearance Urine pH Ur Specific [place] Urine Protein Urine Glucose (UA) Urine Ketones Urine Blood Urine Nitrite Urine Bilirubin Urine Urobilinogen Ur Leukocyte Esterase A. phagocytophilum DNA Negative Lyme IgG (Western Blot) NEGATIVE Lyme IgG 18 kDa Band NON-REACTIVE Lyme IgG 23 kDa Band NON-REACTIVE Lyme IgG 28 kDa Band NON-REACTIVE Lyme IgG 30 kDa Band NON-REACTIVE Lyme IgG 39 kDa Band NON-REACTIVE Lyme IgG 41 kDa Band NON-REACTIVE Lyme IgG 45 kDa Band NON-REACTIVE Lyme IgG 58 kDa Band NON-REACTIVE Lyme IgG 66 kDa Band NON-REACTIVE Lyme IgG 93 kDa Band NON-REACTIVE Lyme IgM Ab (WB) NEGATIVE Lyme IgM 23 kDa Band NON-REACTIVE Lyme IgM 39 kDa Band NON-REACTIVE Lyme IgM 41 kDa Band NON-REACTIVE 10/05/20 10/06/20 10/06/20 20:28 04:47 10:52 Sodium 136 Potassium 3.8 Chloride 108 H Carbon Dioxide 23 Anion Gap 5.0 BUN 3 L Creatinine 1.01 Est Cr Clr Drug Dosing 129.1 Est GFR ( Amer) 110.4 Est GFR (Non-Af Amer) 95.2 BUN/Creatinine Ratio 2.9 L Glucose 87 POC Glucose 89 Calcium 6.3 L Phosphorus 1.2 L* Magnesium 1.7 L Urine Color Dark Yellow Urine Appearance Clear Urine pH 5.5 Ur Specific [place] 1.012 Urine Protein Negative Urine Glucose (UA) Negative Urine Ketones Trace H Urine Blood Negative Urine Nitrite Negative Urine Bilirubin Negative Urine Urobilinogen Negative Ur Leukocyte Esterase Negative A. phagocytophilum DNA Lyme IgG (Western Blot) Lyme IgG 18 kDa Band Lyme IgG 23 kDa Band Lyme IgG 28 kDa Band Lyme IgG 30 kDa Band Lyme IgG 39 kDa Band Lyme IgG 41 kDa Band Lyme IgG 45 kDa Band Lyme IgG 58 kDa Band Lyme IgG 66 kDa Band Lyme IgG 93 kDa Band Lyme IgM Ab (WB) Lyme IgM 23 kDa Band Lyme IgM 39 kDa Band Lyme IgM 41 kDa Band 10/06/20 11:35 Sodium Potassium Chloride Carbon Dioxide Anion Gap BUN Creatinine Est Cr Clr Drug Dosing Est GFR ( Amer) Est GFR (Non-Af Amer) BUN/Creatinine Ratio Glucose POC Glucose 89 Calcium Phosphorus Magnesium Urine Color Urine Appearance Urine pH Ur Specific [place] Urine Protein Urine Glucose (UA) Urine Ketones Urine Blood Urine Nitrite Urine Bilirubin Urine Urobilinogen Ur Leukocyte Esterase A. phagocytophilum DNA Lyme IgG (Western Blot) Lyme IgG 18 kDa Band Lyme IgG 23 kDa Band Lyme IgG 28 kDa Band Lyme IgG 30 kDa Band Lyme IgG 39 kDa Band Lyme IgG 41 kDa Band Lyme IgG 45 kDa Band Lyme IgG 58 kDa Band Lyme IgG 66 kDa Band Lyme IgG 93 kDa Band Lyme IgM Ab (WB) Lyme IgM 23 kDa Band Lyme IgM 39 kDa Band Lyme IgM 41 kDa Band Medications Administered Current Inpatient Medications Acetaminophen (Acetaminophen 500 Mg Tab) 1,000 mg PO Q6H PRN PRN Reason: Pain or Fever Stop: 11/02/20 23:03 Last Admin: 10/06/20 03:28 Dose: 1,000 mg Documented by: Buprenorphine/Naloxone (Buprenorphine/Naloxone 8/2 Mg Tab) 1 tab SL BID BRENDA Stop: 10/31/20 20:59 Last Admin: 10/06/20 07:20 Dose: 1 tab Documented by: Dextrose (Dextrose 50% 50 Ml Syringe) 25 - 50 ml IV UD PRN; Protocol PRN Reason: Hypoglycemia Protocol Stop: 11/01/20 10:29 Folic Acid (Folic Acid 1 Mg Tab) 1 mg PO QAM BRENDA Stop: 11/05/20 08:59 Last Admin: 10/06/20 07:18 Dose: 1 mg Documented by: Glucagon (Glucagon For Inj 1 Mg Vial) 1 mg IM UD PRN; Protocol PRN Reason: Hypoglycemia Protocol Stop: 11/01/20 10:29 Glucose (Glucose 40% Gel 15 Gm Tube) 15 - 30 gm PO UD PRN; Protocol PRN Reason: Hypoglycemia Protocol Stop: 11/01/20 10:29 Glucose (Glucose 10 Tabs/Tube) 4 - 8 tabs PO UD PRN; Protocol PRN Reason: Hypoglycemia Protocol Stop: 11/01/20 10:29 Heparin Sodium (Porcine) (Heparin Sod 5,000 Unit/0.5 Ml Vial) 5,000 units SQ Q8 BRENDA Stop: 10/31/20 15:44 Last Admin: 10/06/20 13:28 Dose: 5,000 units Documented by: Ceftriaxone Sodium 2,000 mg/ (Dextrose) 70 mls @ 100 mls/hr IV Q24H BRENDA; Protocol Stop: 10/09/20 11:59 Last Infusion: 10/06/20 13:18 Dose: Infused Documented by: Doxycycline Hyclate 100 mg/ (Dextrose) 110 mls @ 50 mls/hr IV Q12H [facility] Stop: 10/08/20 17:29 Last Infusion: 10/06/20 08:07 Dose: Infused Documented by: Lorazepam (Ativan) 1 mg in 2 mls @ 2 mls/min IV UD PRN; Protocol PRN Reason: EtOH Withdrawl AWSS Score 6,7 Stop: 11/03/20 10:01 Last Admin: 10/05/20 05:37 Dose: 2 mls/min Documented by: Lorazepam (Ativan) 2 mg in 4 mls @ 4 mls/min IV UD PRN; Protocol PRN Reason: EtOH Withdrawl AWSS Score 8,9 Stop: 11/03/20 10:01 Last Admin: 10/06/20 13:27 Dose: 4 mls/min Documented by: Lorazepam (Ativan) 3 mg in 6 mls @ 4 mls/min IV ONCE PRN; Protocol PRN Reason: EtOH Withdrawl AWSS Score >=10 Stop: 11/03/20 10:01 Last Admin: 10/06/20 03:23 Dose: 4 mls/min Documented by: Metronidazole (Flagyl) 500 mg in 100 mls @ 100 mls/hr IV Q8H [facility] Stop: 10/07/20 17:59 Last Infusion: 10/06/20 13:00 Dose: Infused Documented by: Insulin Aspart (Insulin Aspart 100 Units/Ml 3 Ml Pen) 0 units SC ACHS [facility] Stop: 11/01/20 11:29 Last Admin: 10/06/20 12:32 Dose: Not Given Documented by: Metoprolol Tartrate (Metoprolol Tartrate 25 Mg Tab) 12.5 mg PO BID [facility] Stop: 11/01/20 08:59 Last Admin: 10/06/20 07:16 Dose: 12.5 mg Documented by: Miscellaneous (Carbohydrates For Hypoglycemia ) 15 - 30 gm PO UD PRN PRN Reason: Hypoglycemia Treatment Stop: 11/01/20 10:29 Multivitamins (Multivitamin Tab) 1 tab PO QAM [facility] Stop: 11/01/20 08:59 Last Admin: 10/06/20 07:18 Dose: 1 tab Documented by: Nicotine Polacrilex (Nicotine Polacrilex 2 Mg Gum) 1 piece MT Q1H PRN PRN Reason: nicotine cravings Stop: 11/04/20 10:11 Last Admin: 10/05/20 21:41 Dose: 1 piece Documented by: Thiamine HCl (Thiamine Hcl 100 Mg Tab) 300 mg PO QAM BRENDA Stop: 10/31/20 15:44 Last Admin: 10/06/20 07:17 Dose: 300 mg Documented by: PG Care Time/CCT Total # of Minutes Spent Total Time Spent with Patient: Total time spent is greater than 50% in coordination of care (as documented) at patient's floor/unit and/or counseling patient: Coding Level of Care Code 38158 Subseq Hosp Care Lvl 3 Diagnoses Alcohol withdrawal F10.239 BESSIE (acute kidney injury) N17.9 Pneumonia J18.9 Sepsis A41.9 Alcohol use Z72.89 Lactic acidosis E87.2 High serum osmolar gap R74.8 Hyponatremia E87.1 Hypokalemia E87.6 Narcotic abuse F11.10 HTN (hypertension) I10 Hyperglycemia R73.9 Hypophosphatemia E83.39 Hypocalcemia E83.51 Hypomagnesemia E83.42
[2020-10-06] MEDS ORDERED: MAGNESIUM SULFATE / D5W 1 GM/100 ML BAG IV ONE (15:30)
[2020-10-06] MEDS: LORazepam 1 MG/2 ML VIAL IV PRN (21:04)
[2020-10-06] MEDS: NICOTINE POLACRILEX 2 MG GUM MT PRN (21:04)
[2020-10-07] MEDS: metroNIDAZOLE 500 MG/100 ML BAG IV SCH ×2 (01:04→10:30)
[2020-10-07] MEDS: DOXYCYCLINE HYCLATE 100 MG in DEXTROSE 5% 100 ML IV SCH ×2 (05:28→17:05)
[2020-10-07] MEDS: HEPARIN SOD 5,000 UNIT/0.5 ML VIAL SQ SCH ×3 (05:29→20:39)
[2020-10-07 07:31] LABS: BUN Creatinine Ratio 3.4 (10-20); Calcium 7.2 mg/dl (8.5-10.1); Creatinine Clr Calc Pharmacy 154.9 ml/min; Est GFR (African American) 130.6 ml/min; Est GFR (Non-African American) 112.6 ml/min; Magnesium 1.6 mg/dl (1.8-2.4); Phosphorus 2.3 mg/dl (2.5-4.9); Potassium 4.1 mmol/L (3.5-5.1)
[2020-10-07] MEDS: BUPRENORPHINE/NALOXONE 8/2 MG TAB SL SCH ×2 (08:17→20:34)
[2020-10-07] MEDS: FOLIC ACID 1 MG TAB PO SCH (08:18)
[2020-10-07] MEDS: MULTIVITAMIN TAB PO SCH (08:19)
[2020-10-07] MEDS: METOPROLOL TARTRATE 25 MG TAB PO SCH ×2 (08:19→20:35)
[2020-10-07] MEDS: THIAMINE HCL 100 MG TAB PO SCH (08:19)
[2020-10-07] MEDS: INSULIN ASPART 100 UNITS/ML 3 ML PEN SC SCH ×4 (08:27→20:36)
[2020-10-07] MEDS: MAGNESIUM SULFATE / D5W 1 GM/100 ML BAG IV SCH ×3 (10:56→14:27)
[2020-10-07] MEDS: POT PHOSPHATE MONOBASIC W/ SOD TAB PO SCH ×4 (11:15→20:38)
[2020-10-07] MEDS ORDERED: CALCIUM CARBONATE 500 MG CHEWABLE TAB PO PRN (14:10)
[2020-10-07] MEDS ORDERED: FAMOTIDINE 20 MG in SYRINGE 3 ML IV ONE (14:30)
[2020-10-07] MEDS: cefTRIAXone SODIUM 2,000 MG in DEXTROSE 5% 50 ML IV SCH (15:09)
[2020-10-07] MEDS: ACETAMINOPHEN 500 MG TAB PO PRN (16:36)
--- NOTE | 2020-10-07 21:47 | Hospitalist Progress Note ---
Date of Service October 07, 2020 Assessment & Plan (1) Sepsis: Plan: Had evidence of severe sepsis at time of admission. Source - pneumonia. COVID-19 negative. Blood cultures remained negative. Lyme Western Blot negative. Anaplasmosis negative. Despite 6 days of rocephin/doxy IV he continues with fevers. No obvious source on physical exam. If he has another temp spike today will obtain blood cx's. Send u/a and urine cx. I rechecked a COVID PCR today -- negative. Consider repeat cxr. Procalcitonin rechecked today - improved from admission, but still mildly high. It is possible that DTs/etoh withdrawal is causing fever due to autonomic instability from the withdrawal. (2) Alcohol withdrawal: Plan: Severe. Required use of precedex infusion on 10/04. This was weaned off on 10/05. Continues on etoh withdrawal protocol. Ativan prn. Titrate beta asa to 25mg BID. Consider phenobarbital. Cont thiamine and folate. This could be the cause of his ongoing fevers. (3) BESSIE (acute kidney injury): Plan: Significant injury with Cr > 5 on admission. Admitted to ICU. Improved/resolved with supportive care measures. BMP am. (4) Pneumonia: Plan: Bilateral lobar pneumonia (RUL, LLL). Despite 6 days of IV rocephin/doxy he continues with fevers. Repeat COVID testing today negative. Is the pneumonia the cause of ongoing fever?? Plan to stop both antibiotics after tomorrow's dosing. Consider biofire panel if fevers continue. (5) Alcohol use: Plan: now with etoh withdrawal/DTs. see above. check ammonia in am. (6) Lactic acidosis: Plan: 2nd to severe sepsis and ARF at time of admission -- resolved. (7) High serum osmolar gap: Plan: Ingestion possible, but not proven, and patient denied use of methanol or other agent. [id number] he was started on fomepizole at admission and this was stopped 10/03. (8) Hyponatremia: Plan: resolve (9) Hypokalemia: Plan: resolved (10) Narcotic abuse: Plan: Continue suboxone (11) HTN (hypertension): Plan: uncontrolled, likely due to #2. increase metoprolol to 25mg BID. (12) Hyperglycemia: Plan: Glucose 269 on admission - due to stress of illness. HbA1C 5.5% - not even in pre-DM range. (13) Hypophosphatemia: Plan: start oral K-phos neutral (14) Hypocalcemia: Plan: total corrected value is normal range (15) Hypomagnesemia: Plan: resolved (16) Engages in vaping: Plan: could lung findings on imaging be due to vaping (17) Esophagitis: Plan: as seen on admission CT add PPI should have GI f/u post-d/c (18) DVT prophylaxis: Plan: heparin SC (19) Abnormal LFTs: Plan: as seen on admission labs 2nd to etoh and/or fatty liver repeat the LFTs in am (20) Acute metabolic encephalopathy: Plan: 2nd to infectious process? hepatic encephalopathy? etoh withdrawal/DTs? other? check ammonia level in am treat the DTs Plan: needs PT and OT Admission and Anticipated Discharge Date Admission Date: October 01, 2020 Subjective patient sleeping upon arrival but easily aroused states "I think I am ready to get home" he then falls asleep when asked the year, day of the week, etc -- knew the year, but thought it was despite his fevers he denies chills eating fair denies any significant cough or dyspnea Review of Systems Constitutional: + fatigue and + weakness; no body aches Respiratory: no cough and no dyspnea Cardiovascular: no chest pain Gastrointestinal: + heartburn; no abdominal pain, no nausea and no vomiting Genitourinary: no dysuria Physical Exam Physical Exam: gen - NAD, mildly confused, sleepy skin - healing ulcerations right forearm and right knee region; no generalized rash eyes - nystagmus present heart - tachy, s1 s2, no murmur lungs - CTA b/l, no rales or wheeze abd - soft, liver edge palpable, BS+, NT ext - no edema neuro - tremor of arms b/l Results & Data Results & Data ([facility]) Vital Signs (Past 12 Hours) Vital Signs Temp Pulse Pulse Resp BP Pulse Ox 10/07/20 19:31 36.8 C 97 H 18 150/106 H 95 10/07/20 16:06 38.4 C H 106 H 16 132/94 93 10/07/20 16:00 115 H 10/07/20 11:37 37.7 C H 108 H 14 132/93 93 Laboratory Results Laboratory Results - last 24 hr 10/07/20 10/07/20 10/07/20 06:44 07:42 11:15 Sodium 139 Potassium 4.1 Chloride 110 H Carbon Dioxide 24 Anion Gap 5.0 BUN 3 L Creatinine 0.84 Est Cr Clr Drug Dosing 154.9 Est GFR ( Amer) 130.6 Est GFR (Non-Af Amer) 112.6 BUN/Creatinine Ratio 3.4 L Glucose 88 POC Glucose 99 Calcium 7.2 L Phosphorus 2.3 L D Magnesium 1.6 L Procalcitonin Specimen Hemolysis COVID-19 Eval Order Covid19 at [facility] SARS-CoV-2 (PCR) 10/07/20 10/07/20 10/07/20 11:15 11:34 16:26 Sodium Potassium Chloride Carbon Dioxide Anion Gap BUN Creatinine Est Cr Clr Drug Dosing Est GFR ( Amer) Est GFR (Non-Af Amer) BUN/Creatinine Ratio Glucose POC Glucose 99 115 H Calcium Phosphorus Magnesium Procalcitonin Specimen Hemolysis COVID-19 Eval Order SARS-CoV-2 (PCR) NEGATIVE 10/07/20 10/07/20 16:53 20:33 Sodium Potassium Chloride Carbon Dioxide Anion Gap BUN Creatinine Est Cr Clr Drug Dosing Est GFR ( Amer) Est GFR (Non-Af Amer) BUN/Creatinine Ratio Glucose POC Glucose 101 H Calcium Phosphorus Magnesium Procalcitonin 0.62 H Specimen Hemolysis COVID-19 Eval Order SARS-CoV-2 (PCR) Diagnostic Findings blood cx's 10/05 negative PG Care Time/CCT Total # of Minutes Spent Total Time Spent with Patient: Total time spent is greater than 50% in coordination of care (as documented) at patient's floor/unit and/or counseling patient: Coding Level of Care Code 98245 Subseq Hosp Care Lvl 3 Diagnoses Alcohol withdrawal F10.239 BESSIE (acute kidney injury) N17.9 Pneumonia J18.9 Sepsis A41.9 Alcohol use Z72.89 Lactic acidosis E87.2 High serum osmolar gap R74.8 Hyponatremia E87.1 Hypokalemia E87.6 Narcotic abuse F11.10 HTN (hypertension) I10 Hyperglycemia R73.9 Hypophosphatemia E83.39 Hypocalcemia E83.51 Hypomagnesemia E83.42 Engages in vaping Z72.89 Esophagitis K20.90 DVT prophylaxis Z29.9 Abnormal LFTs R94.5 Acute metabolic encephalopathy G93.41
[2020-10-07] MEDS ORDERED: METOPROLOL TARTRATE 25 MG TAB PO STA (21:52)
[2020-10-07] MEDS: LORazepam 1 MG/2 ML VIAL IV PRN (23:36)
[2020-10-08 01:49] LABS: Appearance Urine Clear (Clear); Bilirubin Urine Negative (Negative); Blood Urine Negative (Negative); Color Urine Dark Yellow; Glucose Urine UA Negative (Negative); Ketones Urine Trace (Negative); Leukocyte Esterase Urine Negative (Negative); Nitrite Urine Negative (Negative); Protein Urine Negative (Negative); Specific Gravity Urine 1.016 (1.000-1.030); Urobilinogen Urine Negative (Negative); pH Urine 6.5 (4.5-7.5)
[2020-10-08] MEDS: HEPARIN SOD 5,000 UNIT/0.5 ML VIAL SQ SCH ×3 (05:03→23:16)
[2020-10-08] MEDS: DOXYCYCLINE HYCLATE 100 MG in DEXTROSE 5% 100 ML IV SCH (05:03)
[2020-10-08 06:15] LABS: Hematocrit (blood only) 32.6 % (42-52); Hemoglobin 10.1 g/dL (14.0-18.0); Mean Corpuscular Hemoglobin 31.6 pg (25-34); Mean Corpuscular Volume 101.9 fL (80-100); Mean Platelet Volume 10.7 fL (7.4-10.4); Nucleated RBC # (auto) 0.04 K/uL (0-0); Nucleated RBC % (auto) 0.8 %; Platelet Count 191 K/uL (130-400); RDW Standard Deviation 55.5 fL (36.4-46.3); White Blood Count 5.57 K/uL (4.8-10.8)
[2020-10-08 06:31] LABS: BUN Creatinine Ratio 2.9 (10-20); Calcium 8.1 mg/dl (8.5-10.1); Creatinine Clr Calc Pharmacy 151.7 ml/min; Est GFR (African American) 129.9 ml/min; Est GFR (Non-African American) 112.1 ml/min; Magnesium 1.7 mg/dl (1.8-2.4); Phosphorus 2.5 mg/dl (2.5-4.9)
[2020-10-08 07:20] LABS: Basophils # (auto) 0.04 K/uL (0-0.2); Basophils % (auto) 0.7 %; Eosinophils # (auto) 0.16 K/uL (0-0.5); Eosinophils % (auto) 2.9 %; Giant Platelets 1+; Immature Granulocytes # (auto) 0.49 K/uL (0.00-0.02); Immature Granulocytes % (auto) 8.8 %; Lymphocytes # (auto) 2.01 K/uL (1.2-3.4); Lymphocytes % (auto) 36.1 %; Monocytes # (auto) 0.65 K/uL (0.11-0.59); Monocytes % (auto) 11.7 %; Neutrophils # (auto) 2.22 K/uL (1.4-6.5); Neutrophils % (auto) 39.8 %
[2020-10-08] MEDS: LORazepam 2 MG/4 ML VIAL IV PRN (07:33)
[2020-10-08] MEDS: INSULIN ASPART 100 UNITS/ML 3 ML PEN SC SCH ×4 (08:12→23:16)
[2020-10-08] MEDS: BUPRENORPHINE/NALOXONE 8/2 MG TAB SL SCH ×2 (08:39→19:50)
[2020-10-08] MEDS: FOLIC ACID 1 MG TAB PO SCH (08:41)
[2020-10-08] MEDS: MULTIVITAMIN TAB PO SCH (08:42)
[2020-10-08] MEDS: PANTOprazole 40 MG TAB PO SCH (08:42)
[2020-10-08] MEDS: THIAMINE HCL 100 MG TAB PO SCH (08:43)
[2020-10-08] MEDS: POT PHOSPHATE MONOBASIC W/ SOD TAB PO SCH ×4 (08:43→23:15)
[2020-10-08] MEDS ORDERED: METOPROLOL TARTRATE 25 MG TAB PO SCH (09:00)
[2020-10-08] MEDS: METOPROLOL TARTRATE 50 MG TAB PO SCH ×2 (10:04→23:15)
[2020-10-08] MEDS: cefTRIAXone SODIUM 2,000 MG in DEXTROSE 5% 50 ML IV SCH (11:50)
[2020-10-08] MEDS: MAGNESIUM SULFATE / D5W 1 GM/100 ML BAG IV SCH ×2 (12:29→13:23)
[2020-10-08] MEDS: LORazepam 1 MG/2 ML VIAL IV PRN (14:12)
[2020-10-08 14:42] LABS: Albumin Level 2.7 gm/dl (3.4-5.0); Bilirubin Direct 0.5 mg/dl (0-0.2); Bilirubin,Total 0.7 mg/dl (0.2-1); Total Protein 6.2 gm/dl (6.4-8.2)
[2020-10-08] MEDS: LORazepam 3 MG/6 ML VIAL IV PRN (19:51)
--- NOTE | 2020-10-08 22:20 | Hospitalist Progress Note ---
Date of Service October 08, 2020 Assessment & Plan (1) Sepsis: Plan: Had evidence of severe sepsis at time of admission. Source - pneumonia. COVID-19 negative. Blood cultures remained negative. Lyme Western Blot negative. Anaplasmosis negative. Despite rocephin/doxy since admission he continued with fever spikes up until yesterday. Blood cx's redrawn yesterday; remain negative. Repeat COVID testing on 10/07 negative. u/a negative. Will continue to monitor. stop abx after 7th day of therapy. (2) Alcohol withdrawal: Plan: Severe. Required use of precedex infusion on 10/04 in the ICU. This was weaned off on 10/05. Continues on etoh withdrawal protocol. Ativan prn. Titrate beta asa to 50mg BID. Consider phenobarbital but probably wouldn't be helpful at this point. Cont thiamine and folate. DTs could be the cause of his ongoing fevers. (3) BESSIE (acute kidney injury): Plan: Significant injury with Cr > 5 on admission. Improved/resolved with supportive care measures. (4) Pneumonia: Plan: Bilateral lobar pneumonia (RUL, LLL). s/p 7 days of IV rocephin/doxy - stop all abx today. COVID testing x 2 negative this admission. Clinically resolved. Minimal symptoms. (5) Alcohol use: Plan: now with etoh withdrawal/DTs. see above. ammonia level wnl this am. (6) Lactic acidosis: Plan: 2nd to severe sepsis and ARF at time of admission -- resolved. (7) High serum osmolar gap: Plan: Ingestion possible, but not proven, and patient denied use of methanol or other agent. [id number] he was started on fomepizole at admission and this was stopped 10/03. (8) Hyponatremia: Plan: resolved (9) Hypokalemia: Plan: resolved (10) Narcotic abuse: Plan: Continue suboxone (11) HTN (hypertension): Plan: uncontrolled, likely due to #2. increase metoprolol to 50mg BID. (12) Hyperglycemia: Plan: Glucose 269 on admission - due to stress of illness. HbA1C 5.5% - not even in pre-DM range. (13) Hypophosphatemia: Plan: cont oral K-phos neutral repeat level am (14) Hypocalcemia: Plan: total corrected value is normal range (15) Hypomagnesemia: Plan: give 2gm mag sulfate today repeat level am (16) Engages in vaping: Plan: could lung findings on imaging be due to vaping?? either way he desperately needs to stop vaping. (17) Esophagitis: Plan: as seen on admission CT added PPI should have GI f/u post-d/c (18) Abnormal LFTs: Plan: as seen on admission labs 2nd to etoh and/or fatty liver repeat LFTs today much improved trend (19) Acute metabolic encephalopathy: Plan: suspect due to etoh withdrawal. Sepsis early on likely contributed but sepsis now resolved. can't rule out a Wernicke's state - continue high-dose thiamine. (20) DVT prophylaxis: Plan: heparin SC Plan: needs PT and OT Admission and Anticipated Discharge Date Admission Date: October 01, 2020 Subjective tele with NSR or sinus tach during the visit he was confused at one point he said he wanted to get up, go into the hallway, and "make a private phone call" later in the day he was found wandering and brought back to his room he knows he is in the hospital but continues to get the day wrong he denies any dyspnea has mild dry cough no chest pain no abd pain staff report he continues to need ativan for withdrawal symptoms eating fair Review of Systems Review of Systems: gen - denies fever/chills today GI - no pain, nausea, emesis CV - no chest pain, no palpitations pulm - no dyspnea at rest or with exertion Physical Exam Physical Exam: gen - NAD, again mildly confused skin - healing ulcerations right forearm and right knee region eyes - nystagmus present (mild) heart - tachy, s1 s2, no murmur lungs - CTA b/l, no rales or wheeze abd - soft, liver edge palpable, BS+, NT ext - no edema neuro - tremor of arms b/l remains Results & Data Results & Data ([facility]) Vital Signs (Past 12 Hours) Vital Signs Temp Pulse Pulse Resp BP Pulse Ox 10/08/20 19:30 37.1 C 106 H 22 155/98 H 94 10/08/20 16:00 99 H 10/08/20 15:13 36.5 C 99 H 18 132/80 96 10/08/20 14:03 37.3 C 144/91 H 10/08/20 11:20 37.4 C 106 H 18 158/89 H 97 Laboratory Results Laboratory Results - last 24 hr 10/08/20 10/08/20 10/08/20 06:01 06:01 06:01 WBC 5.57 RBC 3.20 L Hgb 10.1 L Hct 32.6 L MCV 101.9 H MCH 31.6 MCHC 31.0 L RDW Std Deviation 55.5 H RDW Coeff of Desiree 15.0 H Plt Count 191 MPV 10.7 H Immature Gran % (Auto) 8.8 Neut % (Auto) 39.8 Lymph % (Auto) 36.1 Craig % (Auto) 11.7 Eos % (Auto) 2.9 Baso % (Auto) 0.7 Neut # (Auto) 2.22 Lymph # (Auto) 2.01 Craig # (Auto) 0.65 H Eos # (Auto) 0.16 Baso # (Auto) 0.04 Immature Gran # (Auto) 0.49 H Absolute Nucleated RBC 0.04 H Nucleated RBC % (auto) 0.8 Giant Platelets 1+ Sodium 138 Potassium 4.0 Chloride 109 H Carbon Dioxide 24 Anion Gap 5.0 BUN 3 L Creatinine 0.85 Est Cr Clr Drug Dosing 151.7 Est GFR ( Amer) 129.9 Est GFR (Non-Af Amer) 112.1 BUN/Creatinine Ratio 2.9 L Glucose 90 POC Glucose Calcium 8.1 L Phosphorus 2.5 Magnesium 1.7 L Total Bilirubin Direct Bilirubin AST ALT Alkaline Phosphatase Ammonia < 10.0 L Total Protein Albumin Urine Color Urine Appearance Urine pH Ur Specific [place] Urine Protein Urine Glucose (UA) Urine Ketones Urine Blood Urine Nitrite Urine Bilirubin Urine Urobilinogen Ur Leukocyte Esterase 10/08/20 10/08/20 10/08/20 06:01 07:28 11:18 WBC RBC Hgb Hct MCV MCH MCHC RDW Std Deviation RDW Coeff of Desiree Plt Count MPV Immature Gran % (Auto) Neut % (Auto) Lymph % (Auto) Craig % (Auto) Eos % (Auto) Baso % (Auto) Neut # (Auto) Lymph # (Auto) Craig # (Auto) Eos # (Auto) Baso # (Auto) Immature Gran # (Auto) Absolute Nucleated RBC Nucleated RBC % (auto) Giant Platelets Sodium Potassium Chloride Carbon Dioxide Anion Gap BUN Creatinine Est Cr Clr Drug Dosing Est GFR ( Amer) Est GFR (Non-Af Amer) BUN/Creatinine Ratio Glucose POC Glucose 97 114 H Calcium Phosphorus Magnesium Total Bilirubin 0.7 Direct Bilirubin 0.5 H AST 45 H ALT 23 Alkaline Phosphatase 124 H Ammonia Total Protein 6.2 L Albumin 2.7 L Urine Color Urine Appearance Urine pH Ur Specific [place] Urine Protein Urine Glucose (UA) Urine Ketones Urine Blood Urine Nitrite Urine Bilirubin Urine Urobilinogen Ur Leukocyte Esterase 10/08/20 10/08/20 16:32 Unknown WBC RBC Hgb Hct MCV MCH MCHC RDW Std Deviation RDW Coeff of Desiree Plt Count MPV Immature Gran % (Auto) Neut % (Auto) Lymph % (Auto) Craig % (Auto) Eos % (Auto) Baso % (Auto) Neut # (Auto) Lymph # (Auto) Craig # (Auto) Eos # (Auto) Baso # (Auto) Immature Gran # (Auto) Absolute Nucleated RBC Nucleated RBC % (auto) Giant Platelets Sodium Potassium Chloride Carbon Dioxide Anion Gap BUN Creatinine Est Cr Clr Drug Dosing Est GFR ( Amer) Est GFR (Non-Af Amer) BUN/Creatinine Ratio Glucose POC Glucose 104 H Calcium Phosphorus Magnesium Total Bilirubin Direct Bilirubin AST ALT Alkaline Phosphatase Ammonia Total Protein Albumin Urine Color Dark Yellow Urine Appearance Clear Urine pH 6.5 Ur Specific [place] 1.016 Urine Protein Negative Urine Glucose (UA) Negative Urine Ketones Trace H Urine Blood Negative Urine Nitrite Negative Urine Bilirubin Negative Urine Urobilinogen Negative Ur Leukocyte Esterase Negative Diagnostic Findings 10/08/20 Unknown Urine Culture - Pending Urine,Clean Catch 10/01/20 09:20 Aerobic Blood Culture - Final Blood No growth in Aerobic bottle after 5 days. Anaerobic Blood Culture - Final No growth in Anaerobic bottle after 5 days. 10/01/20 09:29 Aerobic Blood Culture - Final Blood No growth in Aerobic bottle after 5 days. Anaerobic Blood Culture - Final No growth in Anaerobic bottle after 5 days. 10/07 blood cultures also negative to date PG Care Time/CCT Total # of Minutes Spent Total Time Spent with Patient: Total time spent is greater than 50% in coordination of care (as documented) at patient's floor/unit and/or counseling patient: Coding Level of Care Code 30772 Subseq Hosp Care Lvl 3 Diagnoses Sepsis A41.9 Alcohol withdrawal F10.239 BESSIE (acute kidney injury) N17.9 Pneumonia J18.9 Alcohol use Z72.89 Lactic acidosis E87.2 High serum osmolar gap R74.8 Hyponatremia E87.1 Hypokalemia E87.6 Narcotic abuse F11.10 HTN (hypertension) I10 Hyperglycemia R73.9 Hypophosphatemia E83.39 Hypocalcemia E83.51 Hypomagnesemia E83.42 Engages in vaping Z72.89 Esophagitis K20.90 DVT prophylaxis Z29.9 Abnormal LFTs R94.5 Acute metabolic encephalopathy G93.41
[2020-10-09] MEDS: LORazepam 2 MG/4 ML VIAL IV PRN ×5 (01:02→13:04)
[2020-10-09] MEDS: HEPARIN SOD 5,000 UNIT/0.5 ML VIAL SQ SCH ×3 (06:05→21:40)
[2020-10-09] MEDS: METOPROLOL TARTRATE 50 MG TAB PO SCH (07:53)
[2020-10-09] MEDS: PANTOprazole 40 MG TAB PO SCH (07:54)
[2020-10-09] MEDS: MULTIVITAMIN TAB PO SCH (07:54)
[2020-10-09] MEDS: THIAMINE HCL 100 MG TAB PO SCH (07:54)
[2020-10-09] MEDS: POT PHOSPHATE MONOBASIC W/ SOD TAB PO SCH (07:54)
[2020-10-09] MEDS: FOLIC ACID 1 MG TAB PO SCH (07:54)
[2020-10-09] MEDS: INSULIN ASPART 100 UNITS/ML 3 ML PEN SC SCH ×2 (07:55→12:22)
[2020-10-09] MEDS: BUPRENORPHINE/NALOXONE 8/2 MG TAB SL SCH ×2 (07:57→21:39)
[2020-10-09 08:01] LABS: BUN Creatinine Ratio 3.1 (10-20); Calcium 8.8 mg/dl (8.5-10.1); Creatinine Clr Calc Pharmacy 154.3 ml/min; Est GFR (African American) 131.2 ml/min; Est GFR (Non-African American) 113.2 ml/min; Magnesium 1.8 mg/dl (1.8-2.4)
[2020-10-09 08:09] LABS: Phosphorus 4.1 mg/dl (2.5-4.9)
--- NOTE | 2020-10-09 11:42 | Hospitalist Progress Note ---
Date of Service October 09, 2020 Assessment & Plan (1) Sepsis: Plan: Had evidence of severe sepsis at time of admission. Source - pneumonia. Resolved. COVID-19 negative x 2 (most recent test 10/07). Blood cultures x 3 separate sets all negative. Lyme Western Blot negative. Anaplasmosis negative. Despite rocephin/doxy since admission he continued with fever spikes up until 2 days ago. Repeat w/u at that time again negative. Will continue to monitor. Low-grade fevers may be due to DTs. (2) Delirium tremens: Plan: Cont ativan protocol. Trial of phenobarbital orally (30mg x 1 now). If helpful place on 30mg TID and taper over a week or so. (3) Alcohol withdrawal: Plan: Severe. Required use of precedex infusion on 10/04 in the ICU. This was weaned off on 10/05. Continues on etoh withdrawal protocol. Ativan prn. Titrate beta asa to 75mg BID. Trial of phenobarbital. Cont thiamine and folate. DTs could be the cause of his ongoing fevers. (4) BESSIE (acute kidney injury): Plan: Significant injury with Cr > 5 on admission. Resolved with supportive care measures. Cr today 0.8. (5) Pneumonia: Plan: Bilateral lobar pneumonia (RUL, LLL). Likely community-acquired. s/p 7 days of IV rocephin/doxy - course completed. COVID testing x 2 negative this admission. Clinically resolved. Minimal symptoms. (6) Alcohol use: Plan: now with etoh withdrawal/DTs. see above. ammonia level wnl this am. (7) Lactic acidosis: Plan: 2nd to severe sepsis and ARF at time of admission -- resolved. (8) High serum osmolar gap: Plan: Ingestion possible, but not proven, and patient denied use of methanol or other agent. [id number] he was started on fomepizole at admission and this was stopped 10/03. Testing for methanol, etc still pending but suspect will be negative. (9) Hyponatremia: Plan: resolved (10) Hypokalemia: Plan: resolved (11) Narcotic abuse: Plan: Continue suboxone (12) HTN (hypertension): Plan: uncontrolled, likely due to #2. increase metoprolol to 75mg BID. (13) Hyperglycemia: Plan: Glucose 269 on admission - due to stress of illness. HbA1C 5.5% - not even in pre-DM range. All BSGs since have been normal. d/c BSG checks. change diet to regular. (14) Hypophosphatemia: Plan: now resolved d/c supplementation (15) Hypocalcemia: Plan: total corrected value is normal range (16) Hypomagnesemia: Plan: repleted IV last 2 days - now resolved (17) Engages in vaping: Plan: could lung findings on imaging be due to vaping?? either way he desperately needs to stop vaping. (18) Esophagitis: Plan: as seen on admission CT added PPI should have GI f/u post-d/c (19) Abnormal LFTs: Plan: as seen on admission labs 2nd to etoh and/or fatty liver repeat LFTs yesterday much improved trend (20) Acute metabolic encephalopathy: Plan: suspect due to etoh withdrawal. Sepsis early on likely contributed but sepsis now resolved. can't rule out a Wernicke's state - continue high-dose thiamine. (21) DVT prophylaxis: Plan: heparin SC Plan: needs PT and OT suspect he has 2-3 more days of etoh withdrawal needing Rx Admission and Anticipated Discharge Date Admission Date: October 01, 2020 Subjective tele overnight- NSR or ST patient resting in bed during the visit he was awake, alert, oriented x 3 he is impulsive, often getting out of bed abruptly and quickly walking into the hallway he denies any complaints today eating well per nursing flow sheets still using decent amount of IV ativan - 13mg total dosing since yesterday am at 0700 Review of Systems Review of Systems: gen - no fevers, no chills CV - no chest pain pulm - no cough, no dyspnea at rest, no WEST GI - no abd pain, no nausea or emesis psych - has had intermittent visual hallucinations Physical Exam Physical Exam: gen - NAD, a/o x 3 skin - healing ulcerations right forearm - no cellullitis eyes - nystagmus present (mild) heart - tachy, s1 s2, no murmur lungs - CTA b/l, no rales or wheeze abd - soft, liver edge palpable, BS+, NT ext - no edema neuro - tremor of arms still present; gait - mild sway Results & Data Results & Data ([facility]) Vital Signs (Past 12 Hours) Vital Signs Temp Pulse Pulse Resp BP Pulse Ox 10/09/20 08:00 108 H 10/09/20 07:31 37.3 C 100 H 20 156/89 H 97 10/09/20 03:40 37.6 C H 105 H 22 156/95 H 92 Laboratory Results Laboratory Results - last 24 hr 10/08/20 10/08/20 10/08/20 06:01 16:32 23:13 Sodium Potassium Chloride Carbon Dioxide Anion Gap BUN Creatinine Est Cr Clr Drug Dosing Est GFR ( Amer) Est GFR (Non-Af Amer) BUN/Creatinine Ratio Glucose POC Glucose 104 H 95 Calcium Phosphorus Magnesium Total Bilirubin 0.7 Direct Bilirubin 0.5 H AST 45 H ALT 23 Alkaline Phosphatase 124 H Total Protein 6.2 L Albumin 2.7 L Vitamin B12 10/09/20 10/09/20 10/09/20 06:49 06:49 07:06 Sodium 137 Potassium 4.0 Chloride 107 Carbon Dioxide 21 Anion Gap 9.0 BUN 3 L Creatinine 0.83 Est Cr Clr Drug Dosing 154.3 Est GFR ( Amer) 131.2 Est GFR (Non-Af Amer) 113.2 BUN/Creatinine Ratio 3.1 L Glucose 87 POC Glucose 92 Calcium 8.8 Phosphorus 4.1 D Magnesium 1.8 Total Bilirubin Direct Bilirubin AST ALT Alkaline Phosphatase Total Protein Albumin Vitamin B12 1359 H 10/09/20 11:25 Sodium Potassium Chloride Carbon Dioxide Anion Gap BUN Creatinine Est Cr Clr Drug Dosing Est GFR ( Amer) Est GFR (Non-Af Amer) BUN/Creatinine Ratio Glucose POC Glucose 94 Calcium Phosphorus Magnesium Total Bilirubin Direct Bilirubin AST ALT Alkaline Phosphatase Total Protein Albumin Vitamin B12 PG Care Time/CCT Total # of Minutes Spent Total Time Spent with Patient: Total time spent is greater than 50% in coordination of care (as documented) at patient's floor/unit and/or counseling patient: Coding Level of Care Code 58703 Subseq Hosp Care Lvl 3 Diagnoses Sepsis A41.9 Alcohol withdrawal F10.239 BESSIE (acute kidney injury) N17.9 Pneumonia J18.9 Alcohol use Z72.89 Lactic acidosis E87.2 High serum osmolar gap R74.8 Hyponatremia E87.1 Hypokalemia E87.6 Narcotic abuse F11.10 HTN (hypertension) I10 Hyperglycemia R73.9 Hypophosphatemia E83.39 Hypocalcemia E83.51 Hypomagnesemia E83.42 Engages in vaping Z72.89 Esophagitis K20.90 Abnormal LFTs R94.5 Acute metabolic encephalopathy G93.41 DVT prophylaxis Z29.9 Delirium tremens F10.231
--- NOTE | 2020-10-09 20:30 | Communication Note ---
Date of Service: October 09, 2020 Called to bedside by nursing staff, as patient had requested to be allowed to leave. Upon review of his chart, patient was here for concern for sepsis and in severe alcohol withdrawals, requiring multiple medications to limit withdrawal symptoms. Last received IV ativan at approximately 1300 as he was continuing to have symptomatic withdrawals. Has received 6 doses of IV ativan 2-3mg in the last 24hrs with 4 in the last 12 hours. Upon my presentation to bedside, patient pacing around in the room tremulous, and mildly agitated desiring to go home. He is fixated on the belief that he has not been staying in the hospital all day every day since he got here, and just because he did not leave to go to work this morning does not mean he needs to stay tonight. He is worried about potential housing issues, as he is supposed to be looking at houses tomorrow. Lacks insight into the medical process or context of why he was admitted to the hospital, is still having altered mental status with occasional hallucinations about being a tail end rider. He recognizes that these are not real, however, they are happening at sporadic times. At this point in time, concerned that patient would pose risk to himself or others given the continued de-realization of his surroundings/hallucinations. Discussed with nursing that he should not be allowed to sign-out AMA at this point in time given the above. Resident Activity Tracking Resident Involvement: Resident Care Provided Care Provided: Adult Hospital Medicine
[2020-10-09] MEDS: LORazepam 1 MG/2 ML VIAL IV PRN (21:39)
[2020-10-09] MEDS: METOPROLOL TARTRATE 25 MG TAB PO SCH (21:41)
[2020-10-10] MEDS: LORazepam 1 MG/2 ML VIAL IV PRN (02:21)
[2020-10-10] MEDS: HEPARIN SOD 5,000 UNIT/0.5 ML VIAL SQ SCH ×3 (06:23→19:55)
--- NOTE | 2020-10-10 07:40 | Hospitalist Progress Note ---
Date of Service October 10, 2020 Assessment & Plan (1) Sepsis: Plan: Had evidence of severe sepsis at time of admission. Source - pneumonia. Resolved. COVID-19 negative x 2 (most recent test 10/07). Blood cultures x 3 separate sets all negative. Lyme Western Blot negative. Anaplasmosis negative. Despite rocephin/doxy since admission he continued with fever spikes up until 2 days ago. no further antibiotics Repeat w/u at that time again negative. Will continue to monitor. Low-grade fevers may be due to DTs. (2) Delirium tremens: Plan: Cont ativan protocol. Increase phenobarb to 64.8 tid, and increase librium to 50 mg tid (3) Alcohol withdrawal: Plan: Severe. Required use of precedex infusion on 10/04 in the ICU. This was weaned off on 10/05. Continues on etoh withdrawal librium, phenobarb and continues on Ativan prn. Titrate beta asa to 75mg BID. Trial of phenobarbital. Cont thiamine and folate. DTs could be the cause of his ongoing fevers. (4) BESSIE (acute kidney injury): Plan: Significant injury with Cr > 5 on admission. Resolved with supportive care measures. (5) Pneumonia: Plan: Bilateral lobar pneumonia (RUL, LLL). Likely community-acquired. s/p 7 days of IV rocephin/doxy - course completed. COVID testing x 2 negative this admission. Clinically resolved. Minimal symptoms. (6) Alcohol use: Plan: now with etoh withdrawal/DTs. see above. ammonia level wnl (7) Lactic acidosis: Plan: 2nd to severe sepsis and ARF at time of admission -- resolved. (8) High serum osmolar gap: Plan: Ingestion possible, but not proven, and patient denied use of methanol or other agent. [id number] he was started on fomepizole at admission and this was stopped 10/03. Testing for methanol, negative. (9) Hyponatremia: Plan: resolved (10) Hypokalemia: Plan: resolved (11) Narcotic abuse: Plan: Continue suboxone (12) HTN (hypertension): Plan: uncontrolled, likely due to #2. increase metoprolol to 75mg BID. (13) Hyperglycemia: Plan: Glucose 269 on admission - due to stress of illness. HbA1C 5.5% - not even in pre-DM range. All BSGs since have been normal. d/c BSG checks. change diet to regular. (14) Hypophosphatemia: Plan: now resolved d/c supplementation (15) Hypocalcemia: Plan: total corrected value is normal range (16) Hypomagnesemia: Plan: repleted (17) Engages in vaping: Plan: could lung findings on imaging be due to vaping?? either way he desperately needs to stop vaping. (18) Esophagitis: Plan: as seen on admission CT added PPI should have GI f/u post-d/c (19) Abnormal LFTs: Plan: as seen on admission labs 2nd to etoh and/or fatty liver repeat LFTs yesterday much improved trend (20) Acute metabolic encephalopathy: Plan: suspect due to etoh withdrawal. Sepsis early on likely contributed but sepsis now resolved. can't rule out a Wernicke's state - continue high-dose thiamine. (21) DVT prophylaxis: Plan: heparin SC Plan: needs PT and OT suspect he has 2-3 more days of etoh withdrawal needing Rx Admission and Anticipated Discharge Date Admission Date: October 01, 2020 Subjective Patient was up pacing his room he is visibly tremulous when speaking to me he says he did not feel that bad as far as nervousness inside. Review of Systems Review of Systems: Moderate distress and fatigue no headache, no visual changes no speech or swallowing issues no chest pain, pressure or palpitations no shortness of breath, cough or wheezes Mild abdominal pain, no nausea or vomiting, diarrhea or constipation no dysuria, hematuria or frequency no focal joint pain or swelling no back pain, CVA tenderness or radicular pain no bruising, bleeding or rashes no focal signs of weakness or numbness or altered sensation Exhibiting signs of anxiety. Physical Exam Physical Exam: The patient appeared to be in moderate alcohol withdrawal at this time Vital signs as documented. Head exam is normocephalic atraumatic Neck is without JVD, thyromegaly, or carotid bruits. Lungs are clear to auscultation, no focal loss of breath sounds Cardiac exam, Rhythm is regular.. No murmurs, rubs or gallops. Abdominal exam reveals normal bowel sounds, soft non tender, no masses Extremities are nonedematous and both pedal pulses are present Neurologic exam is alert and oriented, he is tremulous but has no asterixis Skin is without bruises or rashes Psychologically is with concerns for anxiety Results & Data Results & Data ([facility]) Vital Signs (Past 12 Hours) Vital Signs Temp Pulse Pulse Resp BP Pulse Ox 10/10/20 05:21 99.1 F 105 H 22 170/107 H 93 10/09/20 22:45 98.4 F 100 H 18 168/92 H 95 PG Care Time/CCT Total # of Minutes Spent Total Time Spent with Patient: Total time spent is greater than 50% in coordination of care (as documented) at patient's floor/unit and/or counseling patient: Coding Level of Care Code 40808 Subseq Hosp Care Lvl 3 Diagnoses Sepsis A41.9 Delirium tremens F10.231 Alcohol withdrawal F10.239 BESSIE (acute kidney injury) N17.9 Pneumonia J18.9 Alcohol use Z72.89 Lactic acidosis E87.2 High serum osmolar gap R74.8 Hyponatremia E87.1 Hypokalemia E87.6 Narcotic abuse F11.10 HTN (hypertension) I10 Hyperglycemia R73.9 Hypophosphatemia E83.39 Hypocalcemia E83.51 Hypomagnesemia E83.42 Engages in vaping Z72.89 Esophagitis K20.90 Abnormal LFTs R94.5 Acute metabolic encephalopathy G93.41 DVT prophylaxis Z29.9
[2020-10-10] MEDS: METOPROLOL TARTRATE 25 MG TAB PO SCH ×2 (08:06→19:54)
[2020-10-10] MEDS: MULTIVITAMIN TAB PO SCH (08:06)
[2020-10-10] MEDS: BUPRENORPHINE/NALOXONE 8/2 MG TAB SL SCH ×2 (08:06→19:54)
[2020-10-10] MEDS: chlordiazePOXIDE HCl 25 MG CAP PO SCH ×5 (08:06→19:54)
[2020-10-10] MEDS: PANTOprazole 40 MG TAB PO SCH (08:07)
[2020-10-10] MEDS: FOLIC ACID 1 MG TAB PO SCH (08:07)
[2020-10-10] MEDS: THIAMINE HCL 100 MG TAB PO SCH (08:07)
[2020-10-10] MEDS: LORazepam 2 MG/4 ML VIAL IV PRN ×3 (09:33→22:29)
[2020-10-11] MEDS: HEPARIN SOD 5,000 UNIT/0.5 ML VIAL SQ SCH ×2 (05:37→14:37)
[2020-10-11] MEDS: chlordiazePOXIDE HCl 25 MG CAP PO SCH ×2 (08:49→14:36)
[2020-10-11] MEDS: BUPRENORPHINE/NALOXONE 8/2 MG TAB SL SCH (08:49)
[2020-10-11] MEDS: FOLIC ACID 1 MG TAB PO SCH (08:49)
[2020-10-11] MEDS: PANTOprazole 40 MG TAB PO SCH (08:50)
[2020-10-11] MEDS: METOPROLOL TARTRATE 25 MG TAB PO SCH (08:50)
[2020-10-11] MEDS: MULTIVITAMIN TAB PO SCH (08:50)
[2020-10-11] MEDS: THIAMINE HCL 100 MG TAB PO SCH (08:50)
--- NOTE | 2020-10-11 14:16 | Psychiatric Consultation ---
Date of Consultation October 11, 2020 Impression / Recommendations Impression 35-year-old male who presented with alcohol intoxication/withdrawal as well as pneumonia currently recovering on the medical floors after ICU stay. Patient was initially delirious but has been making improvements. Patient's mentation is cleared up at this time and shows no signs of acute psychiatric pathology. No need for medications for delirium currently has he is being managed well on his current regimen. Patient is cleared from a psychiatric perspective. Psych History Chief Complaint "I'm feeling much better". History of Present Illness 35-year-old male with history of alcohol abuse and narcotic abuse who presented to the ER for EtOH intoxication as well as pneumonia. Patient had a ICU stay recently and upon being transferred to the floors was still experiencing some delusions/hallucinations. Initially he was difficult to control, psychiatry was consulted for assistance of agitation of delirium. Upon evaluation patient is calm and cooperative although eager to leave the hospital due to impending eviction from his apartment. 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 Patient states that he initially started off with 2 twisted ice teas which have then over time progressed to more and more. Patient stands that his drinking is excessive and abusive at this point. He is unwilling to attend rehab at this time as he feels it will not be helpful to him and he feels that he can manage to cut back on his drinking on his own. Patient denies any history of psychiatric problems aside from narcotic abuse which started following some sports injuries. Patient states that he became addicted to painkillers but has been taking Suboxone for quite some time and has not had any instances of relapse. He does understand that his drinking and drug use are both indicators of substance abuse but denies any underlying depression. Patient denies any past psychotic behavior. Patient denies any family history of psychosis or bipolar disorder. Past Psychiatric History Previous Psych History: Aside from narcotic abuse and Suboxone use, patient denies any psychiatric history. Denies any previous inpatient hospitalizations. Denies any previous suicide attempts. Outpatient Services: Patient is currently involved with [facility] Previous Psych Admissions: Denies Allergies Allergy/AdvReac Type Severity Reaction Status Date / Time No Known Allergies Allergy Unverified 10/01/20 09:46 Home Medications Medication Instructions Recorded Confirmed Type lisinopril 5 mg tablet 5 mg PO DAILY #30 tab 02/17/20 10/01/20 Rx buprenorphine 8 mg-naloxone 2 mg 1 tab SUBLINGUAL BID 09/04/20 10/01/20 History sublingual tablet Family History Denies any family history of mental health problems Substance Abuse History Patient has a history of prescription opiate abuse. He is currently taking Suboxone which has been well controlled. He also has history of alcohol abuse. Patient states that he drinks approximately 2-4 twisted teas per day. He understands that his use is contributing to his medical problems. He is not interested in any rehab at this time. Personal History Beliefs That Will Affect Care: None Patient History Medical History (Updated 10/09/20 @ 11:50 by Tashi Apple) Alcohol use Alcohol withdrawal delirium Narcotic abuse Surgical History No pertinent past surgical history Family History Other No pertinent family history Social History Smoking Status: Current every day smoker Tobacco Type: Cigarettes and E-cigarettes / Vaping Hx Alcohol Use: Yes Alcohol type: hard liquor Hx Substance Use: No Preferred Language: Filipino Communication Ability: Unable Beliefs That Will Affect Care: None Current Living Situation: Alone Feels Safe at Home: Yes Assistive Devices: None Physical Exam Psychiatric: Orientation: alert and oriented x 3 Apperance: appropriately dressed and appropriately groomed Eye Contact: + fair eye contact Motor Behavior: steady gait and station Speech: normal rate/rhythm/volume of speech Affect: euthymic affect Mood: no depressed mood and no anxious mood Thought Process: linear/logical thought process Thought Content: reality based without delusions Suicidal Thoughts: denies suicidal thoughts, denies suicidal plan and denies suicidal intent Homicidal Thoughts: denies homicidal thoughts, denies homicidal plan and denies homicidal intent Hallucinations: no auditory hallucinations and no visual hallucinations Cognition: remote memory grossly intact Estimated Intelligence: consistent with education level Insight: + fair insight Judgement: + fair judgement Vital Signs (Past 24 Hours): Last Vital Signs Temp 37.5 C 10/11/20 11:04 Pulse 95 H 10/11/20 11:04 Resp 20 10/11/20 11:04 BP 143/90 H 10/11/20 11:04 Pulse Ox 96 10/11/20 11:04 Review of Systems All systems reviewed & are unremarkable except as noted in HPI & below Results & Data (PSY) Medications Administered Acetaminophen (Acetaminophen 500 Mg Tab) 1,000 mg PO Q6H PRN PRN Reason: Pain or Fever Stop: 11/02/20 23:03 Last Admin: 10/07/20 16:36 Dose: 1,000 mg Documented by: [id number] Admin: 10/06/20 23:33 Dose: 1,000 mg Documented by: [id number] Admin: 10/06/20 03:28 Dose: 1,000 mg Documented by: [id number] Admin: 10/05/20 00:01 Dose: 1,000 mg Documented by: [id number] Admin: 10/04/20 17:51 Dose: 1,000 mg Documented by: [id number] Admin: 10/03/20 23:09 Dose: 1,000 mg Documented by: [id number] Buprenorphine/Naloxone (Buprenorphine/Naloxone 8/2 Mg Tab) 1 tab SL BID BRENDA Stop: 10/31/20 20:59 Last Admin: 10/11/20 08:49 Dose: 1 tab Documented by: [id number] Admin: 10/10/20 19:54 Dose: 1 tab Documented by: [id number] Admin: 10/10/20 08:06 Dose: 1 tab Documented by: [id number] Admin: 10/09/20 21:39 Dose: 1 tab Documented by: [id number] Admin: 10/09/20 07:57 Dose: 1 tab Documented by: [id number] Admin: 10/08/20 19:50 Dose: 1 tab Documented by: [id number] Admin: 10/08/20 08:39 Dose: 1 tab Documented by: [id number] Admin: 10/07/20 20:34 Dose: 1 tab Documented by: [id number] Admin: 10/07/20 08:17 Dose: 1 tab Documented by: [id number] Admin: 10/06/20 21:02 Dose: 1 tab Documented by: [id number] Admin: 10/06/20 07:20 Dose: 1 tab Documented by: [id number] Admin: 10/05/20 20:23 Dose: 1 tab Documented by: [id number] Admin: 10/05/20 08:47 Dose: 1 tab Documented by: [id number] Admin: 10/04/20 20:32 Dose: 1 tab Documented by: [id number] Admin: 10/04/20 09:05 Dose: 1 tab Documented by: [id number] Admin: 10/03/20 20:06 Dose: 1 tab Documented by: [id number] Admin: 10/03/20 08:15 Dose: 1 tab Documented by: [id number] Admin: 10/02/20 20:49 Dose: 1 tab Documented by: [id number] Admin: 10/02/20 08:01 Dose: 1 tab Documented by: [id number] Admin: 10/01/20 20:53 Dose: 1 tab Documented by: [id number] Chlordiazepoxide HCl (Chlordiazepoxide Hcl 25 Mg Cap) 50 mg PO TID [facility] Stop: 11/09/20 13:59 Last Admin: 10/11/20 08:49 Dose: 50 mg Documented by: [id number] Admin: 10/10/20 19:54 Dose: 50 mg Documented by: [id number] Admin: 10/10/20 13:48 Dose: 50 mg Documented by: [id number] Folic Acid (Folic Acid 1 Mg Tab) 1 mg PO QAM [facility] Stop: 11/05/20 08:59 Last Admin: 10/11/20 08:49 Dose: 1 mg Documented by: [id number] Admin: 10/10/20 08:07 Dose: 1 mg Documented by: [id number] Admin: 10/09/20 07:54 Dose: 1 mg Documented by: [id number] Admin: 10/08/20 08:41 Dose: 1 mg Documented by: [id number] Admin: 10/07/20 08:18 Dose: 1 mg Documented by: [id number] Admin: 10/06/20 07:18 Dose: 1 mg Documented by: [id number] Heparin Sodium (Porcine) (Heparin Sod 5,000 Unit/0.5 Ml Vial) 5,000 units SQ Q8 [facility] Stop: 10/31/20 15:44 Last Admin: 10/11/20 05:37 Dose: 5,000 units Documented by: [id number] Admin: 10/10/20 19:55 Dose: 5,000 units Documented by: [id number] Admin: 10/10/20 13:12 Dose: 5,000 units Documented by: [id number] Admin: 10/10/20 06:23 Dose: Not Given Documented by: [id number] Admin: 10/09/20 21:40 Dose: 5,000 units Documented by: [id number] Admin: 10/09/20 16:37 Dose: 5,000 units Documented by: [id number] Admin: 10/09/20 06:05 Dose: 5,000 units Documented by: [id number] Admin: 10/08/20 23:16 Dose: 5,000 units Documented by: [id number] Admin: 10/08/20 14:12 Dose: 5,000 units Documented by: [id number] Admin: 10/08/20 05:03 Dose: 5,000 units Documented by: [id number] Admin: 10/07/20 20:39 Dose: 5,000 units Documented by: [id number] Admin: 10/07/20 14:11 Dose: 5,000 units Documented by: [id number] Admin: 10/07/20 05:29 Dose: 5,000 units Documented by: [id number] Admin: 10/06/20 21:03 Dose: 5,000 units Documented by: [id number] Admin: 10/06/20 13:28 Dose: 5,000 units Documented by: [id number] Admin: 10/06/20 05:43 Dose: 5,000 units Documented by: [id number] Admin: 10/05/20 20:22 Dose: 5,000 units Documented by: [id number] Admin: 10/05/20 13:09 Dose: 5,000 units Documented by: [id number] Admin: 10/05/20 05:37 Dose: 5,000 units Documented by: [id number] Admin: 10/04/20 20:34 Dose: 5,000 units Documented by: [id number] Admin: 10/04/20 12:44 Dose: 5,000 units Documented by: [id number] Admin: 10/04/20 05:57 Dose: 5,000 units Documented by: [id number] Admin: 10/03/20 20:07 Dose: 5,000 units Documented by: [id number] Admin: 10/03/20 14:04 Dose: 5,000 units Documented by: [id number] Admin: 10/03/20 06:01 Dose: 5,000 units Documented by: [id number] Admin: 10/02/20 20:52 Dose: 5,000 units Documented by: [id number] Admin: 10/02/20 15:29 Dose: 5,000 units Documented by: [id number] Admin: 10/02/20 06:31 Dose: 5,000 units Documented by: [id number] Admin: 10/01/20 20:53 Dose: 5,000 units Documented by: [id number] Admin: 10/01/20 16:59 Dose: 5,000 units Documented by: [id number] Lorazepam (Ativan) 1 mg in 2 mls @ 2 mls/min IV UD PRN; Protocol PRN Reason: EtOH Withdrawl AWSS Score 6,7 Stop: 11/03/20 10:01 Last Admin: 10/10/20 02:21 Dose: 2 mls/min Documented by: [id number] Admin: 10/09/20 21:39 Dose: 2 mls/min Documented by: [id number] Admin: 10/08/20 14:12 Dose: 2 mls/min Documented by: [id number] Admin: 10/07/20 23:36 Dose: 2 mls/min Documented by: [id number] Admin: 10/06/20 21:04 Dose: 2 mls/min Documented by: [id number] Admin: 10/05/20 05:37 Dose: 2 mls/min Documented by: [id number] Lorazepam (Ativan) 2 mg in 4 mls @ 4 mls/min IV UD PRN; Protocol PRN Reason: EtOH Withdrawl AWSS Score 8,9 Stop: 11/03/20 10:01 Last Admin: 10/10/20 22:29 Dose: 4 mls/min Documented by: [id number] Admin: 10/10/20 14:11 Dose: 4 mls/min Documented by: [id number] Admin: 10/10/20 09:33 Dose: 4 mls/min Documented by: [id number] Admin: 10/09/20 13:04 Dose: 4 mls/min Documented by: [id number] Admin: 10/09/20 11:05 Dose: 4 mls/min Documented by: [id number] Admin: 10/09/20 08:49 Dose: 4 mls/min Documented by: [id number] Admin: 10/09/20 04:01 Dose: 4 mls/min Documented by: [id number] Admin: 10/09/20 01:02 Dose: 4 mls/min Documented by: [id number] Admin: 10/08/20 07:33 Dose: 4 mls/min Documented by: [id number] Admin: 10/06/20 23:44 Dose: 4 mls/min Documented by: [id number] Admin: 10/06/20 13:27 Dose: 4 mls/min Documented by: [id number] Admin: 10/06/20 06:39 Dose: 4 mls/min Documented by: [id number] Admin: 10/06/20 04:28 Dose: 4 mls/min Documented by: [id number] Admin: 10/06/20 01:55 Dose: 4 mls/min Documented by: [id number] Admin: 10/05/20 23:17 Dose: 4 mls/min Documented by: [id number] Admin: 10/05/20 19:54 Dose: 4 mls/min Documented by: [id number] Admin: 10/05/20 15:01 Dose: 4 mls/min Documented by: [id number] Admin: 10/05/20 13:09 Dose: 4 mls/min Documented by: [id number] Admin: 10/05/20 00:01 Dose: 4 mls/min Documented by: [id number] Admin: 10/04/20 17:43 Dose: 4 mls/min Documented by: [id number] Admin: 10/04/20 16:02 Dose: 4 mls/min Documented by: [id number] Lorazepam (Ativan) 3 mg in 6 mls @ 4 mls/min IV ONCE PRN; Protocol PRN Reason: EtOH Withdrawl AWSS Score >=10 Stop: 11/03/20 10:01 Last Admin: 10/08/20 19:51 Dose: 4 mls/min Documented by: [id number] Admin: 10/06/20 03:23 Dose: 4 mls/min Documented by: [id number] Admin: 10/05/20 21:45 Dose: 4 mls/min Documented by: [id number] Admin: 10/05/20 18:24 Dose: 4 mls/min Documented by: [id number] Admin: 10/05/20 16:58 Dose: 4 mls/min Documented by: [id number] Admin: 10/05/20 08:16 Dose: 4 mls/min Documented by: [id number] Metoprolol Tartrate (Metoprolol Tartrate 25 Mg Tab) 75 mg PO BID BRENDA Stop: 11/08/20 20:59 Last Admin: 10/11/20 08:50 Dose: 75 mg Documented by: [id number] Admin: 10/10/20 19:54 Dose: 75 mg Documented by: [id number] Admin: 10/10/20 08:06 Dose: 75 mg Documented by: [id number] Admin: 10/09/20 21:41 Dose: 75 mg Documented by: [id number] Multivitamins (Multivitamin Tab) 1 tab PO QAM BRENDA Stop: 11/01/20 08:59 Last Admin: 10/11/20 08:50 Dose: 1 tab Documented by: [id number] Admin: 10/10/20 08:06 Dose: 1 tab Documented by: [id number] Admin: 10/09/20 07:54 Dose: 1 tab Documented by: [id number] Admin: 10/08/20 08:42 Dose: 1 tab Documented by: [id number] Admin: 10/07/20 08:19 Dose: 1 tab Documented by: [id number] Admin: 10/06/20 07:18 Dose: 1 tab Documented by: [id number] Admin: 10/05/20 08:25 Dose: 1 tab Documented by: [id number] Admin: 10/04/20 09:02 Dose: 1 tab Documented by: [id number] Admin: 10/03/20 08:12 Dose: 1 tab Documented by: [id number] Admin: 10/02/20 08:01 Dose: 1 tab Documented by: [id number] Nicotine Polacrilex (Nicotine Polacrilex 2 Mg Gum) 1 piece MT Q1H PRN PRN Reason: nicotine cravings Stop: 11/04/20 10:11 Last Admin: 10/06/20 21:04 Dose: 1 piece Documented by: [id number] Admin: 10/05/20 21:41 Dose: 1 piece Documented by: [id number] Admin: 10/05/20 18:19 Dose: 1 piece Documented by: [id number] Pantoprazole Sodium (Pantoprazole 40 Mg Tab) 40 mg PO QAM [facility] Stop: 11/07/20 08:59 Last Admin: 10/11/20 08:50 Dose: 40 mg Documented by: [id number] Admin: 10/10/20 08:07 Dose: 40 mg Documented by: [id number] Admin: 10/09/20 07:54 Dose: 40 mg Documented by: [id number] Admin: 10/08/20 08:42 Dose: 40 mg Documented by: [id number] Phenobarbital (Phenobarbital 32.4 Mg Tab) 64.8 mg PO TID BRENDA Stop: 11/09/20 13:59 Last Admin: 10/11/20 08:49 Dose: 64.8 mg Documented by: [id number] Admin: 10/10/20 19:54 Dose: 64.8 mg Documented by: [id number] Admin: 10/10/20 13:48 Dose: 64.8 mg Documented by: [id number] Thiamine HCl (Thiamine Hcl 100 Mg Tab) 300 mg PO QAM BRENDA Stop: 10/31/20 15:44 Last Admin: 10/11/20 08:50 Dose: 300 mg Documented by: [id number] Admin: 10/10/20 08:07 Dose: 300 mg Documented by: [id number] Admin: 10/09/20 07:54 Dose: 300 mg Documented by: [id number] Admin: 10/08/20 08:43 Dose: 300 mg Documented by: [id number] Admin: 10/07/20 08:19 Dose: 300 mg Documented by: [id number] Admin: 10/06/20 07:17 Dose: 300 mg Documented by: [id number] Admin: 10/05/20 08:24 Dose: 300 mg Documented by: [id number] Admin: 10/04/20 09:02 Dose: 300 mg Documented by: [id number] Admin: 10/03/20 08:12 Dose: 300 mg Documented by: [id number] Admin: 10/02/20 08:01 Dose: 300 mg Documented by: [id number] Admin: 10/01/20 16:57 Dose: 300 mg Documented by: [id number] Coding Level of Care Code 88717 [facility] Intl Hosp Care Lvl 2
--- NOTE | 2020-10-11 17:48 | Electrocardiogram Report ---
Test Reason : Blood Pressure : / mmHG Vent. Rate : 091 BPM Atrial Rate : 091 BPM P-R Int : 140 ms QRS Dur : 090 ms QT Int : 352 ms P-R-T Axes : 035 074 064 degrees QTc Int : 432 ms Normal sinus rhythm Minor nonspecific ST elevation in Inferior leads Borderline ECG When compared with ECG of 01-OCT-2020 18:41, HR has decreased by [address] elevation in Inferior leads now present Confirmed by Edwin Waite [id number]) on 10/11/2020 5:48:35 PM Referred By: REFERRED SELF Confirmed By:Edwin Waite
--- NOTE | 2020-10-13 10:42 | Discharge Summary ---
Date of Service date of admission - October 01, 2020 date of discharge - October 11, 2020. Patient left AMA (Against Medical Advice). Admission HPI Per Admitting Provider 35 YOM with past medical history of: Alcohol abuse, HTN, Obesity, on Suboxone for history of drug abuse, Patient has no records for review other than a previous ER admission for ETOH intoxication and bilateral lobe infiltrates, where he declined admission and was treated with oral antibiotics in August 2020. Patient comes to the EMD today for complaints of shortness of breath, cough, muscle fatigue and body aches. He says that he has been feeling unwell for the past two days but today just felt like he couldn't walk or hold himself upright. He endorses to being outside yesterday spraying weeds with round-up, but other than that nothing out of the ordinary. He states that he has been urinating more frequently and his urine is just "off yellow color". He denies any use of drugs, or drinking any other substances other than beer. He endorses 2-3 beers a day and continues to smoke. Patient had workup in the EMD with CXR, CT scan of chest and abdomen non contrasted, labs, toxicology screen. His CT scan of the abdomen revealed hypersteatosis, bi-lateral intrapelvic renal cysts, possible cystitis, partial bowel malrotation (?congenital). CXR and CT scan revealed multilobar bilateral opacities. 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 Patient continues to be tachycardic and variable hemodynamic response but hypotensive, he has received 1liter of normal saline and 1 liter of banana bag in the EMD. He will be admitted to the ICU for continued volume resuscitation, follow metabolic parameters, renal function and electrolyte panel. Nephrology h as been consulted. Principal Diagnosis 1. acute renal failure - resolved 2. severe alcohol withdrawal/DTs - largely resolved 3. bilateral community-acquired pneumonia 4. concern for toxic ingestion - substance unknown Discharge Exam Gen: NAD, occasional confusion, alert/oriented x 3 Eyes: minimal amount of residual nystagmus Mouth: MMM Neck: no JVD Heart: RRR, s1, s2, no murmur Lungs: CTA b/l, no wheezes or rales GI: soft, liver edge palpable, no splenomegaly, BS+, NT Ext: no edema, pulses 2+ b/l Skin: no rash Neuro: tremors of hands/arms Discharge Data Allergies Allergy/AdvReac Type Severity Reaction Status Date / Time No Known Allergies Allergy Unverified 10/01/20 09:46 Consultations 10/01/20 13:37 Consult Nephrology Routine 10/01/20 15:45 Consult Payment Analyst Routine 10/11/20 12:19 Consult Psychiatry Routine Procedures Performed Echo: *Hyperdynamic LV; EF >70% *normal valve function *normal LV wall motion COVID testing x 2 negative Ordered Studies Abdomen/Pelvis CT 10/01/20 09:12 CT OF THE ABDOMEN AND PELVIS WITHOUT CONTRAST CLINICAL HISTORY: sob, tachycardic, low bp COMPARISON STUDY: CT of the abdomen and pelvis September 05, 2020. TECHNIQUE: Axial images of the abdomen and pelvis were obtained without IV contrast. Images were reviewed in the axial, sagittal, and coronal planes. Automated exposure control was utilized for the study. A dose lowering technique was utilized adhering to the principles of ALARA. FINDINGS: Imaged portions of the lower chest demonstrate moderate alveolar opacities within the left lower lobe. No pneumatosis, free air or portal venous gas is present. Evaluation of the abdomen and pelvis is suboptimal on this unenhanced examination. There is hepatic steatosis and hepatomegaly. No hepatic lesions are identified on this unenhanced exam. Unenhanced images of the spleen, adrenal glands and pancreas are unremarkable. There is no peripancreatic infiltration. Multiple bilateral renal lesions are suboptimally assessed on this unenhanced exam but these measure water attenuation. There is no hydronephrosis. Note is made of congenital bowel malrotation. There is no evidence for a bowel obstruction. There is no ascites or lymphadenopathy. Mild bladder wall thickening is noted. There is mild wall thickening of the distal esophagus. IMPRESSION: 1. Moderate left lower lobe alveolar opacities suggestive of an infectious process. 2. Hepatic steatosis and hepatomegaly. 3. Congenital bowel malrotation. No evidence for a bowel obstruction. 4. Mild circumferential wall thickening of the distal esophagus which may reflect esophagitis. ACT 112: Negative or not required by law. Electronically signed by: Rogerio Rouse M.D. 10/01/2020 1:09 PM Chest X-Ray 10/01/20 09:12 XR chest 1V portable HISTORY: Atypical Chest Pain COMPARISON: Chest 09/04/2020. FINDINGS: The lungs are clear. Cardiac silhouette is normal in size. No pleural effusions. No pneumothorax. IMPRESSION: No acute process. ACT 112: Negative or not required by law. Electronically signed by: Jhonny Meza M.D. 10/01/2020 9:[address] 10/01/20 09:13 CT OF THE CHEST WITHOUT IV CONTRAST CLINICAL HISTORY: Shortness of breath. COMPARISON STUDY: Chest radiograph performed earlier today. CT DOSE: 1614.50 mGy.cm TECHNIQUE: Axial images of the chest were obtained without IV contrast. Images were reviewed in the axial, sagittal, and coronal planes. IV contrast was not administered for this examination. Automated exposure control was utilized for the study. A dose lowering technique was utilized adhering to the principles of ALARA. FINDINGS: There is no pneumothorax following placement of a left internal jugular central line. Catheter tip is within the SVC. The size of the heart is normal. There is mild distal esophageal wall thickening. There is no pleural effusion. Note is made of moderate alveolar opacities within the left lower lobe. There are also mild alveolar opacities within the right upper lobe. Right middle lobe and right lower lobe airspace opacities on abdominal CT of September 05, 2020 have nearly completely resolved. The central airways are patent. There is no thoracic lymphadenopathy. Abdomen and pelvis will be reported separately. Hepatic steatosis is better depicted on that exam. IMPRESSION: 1. Moderate left lower lobe and mild right upper lobe alveolar opacities suggestive of pneumonia. 2. Hepatic steatosis. ACT 112: Negative or not required by law. Electronically signed by: Rogerio Rouse M.D. 10/01/2020 1:01 PM Chest X-Ray 10/01/20 12:13 XR chest 1V portable CLINICAL HISTORY: IJ placement COMPARISON STUDY: Chest radiograph performed earlier today. FINDINGS: There is no pneumothorax placement of a left internal jugular central line. Catheter tip projects in the SVC. Mild elevation the right hemidiaphragm is noted. Mild lower lung interstitial thickening is present. IMPRESSION: No pneumothorax following placement of a left internal jugular central line. ACT 112: Negative or not required by law. Electronically signed by: Rogerio Rouse M.D. 10/01/2020 12:31 PM Liver Ultrasound 10/02/20 07:55 ULTRASOUND RIGHT UPPER QUADRANT ABDOMEN CLINICAL HISTORY: Elevated hepatic transaminases. COMPARISON STUDY: Abdominal CT dated 10/01/2020 TECHNIQUE: Real-time, grayscale, and color flow sonography of the right upper quadrant of the abdomen was performed. Images are reviewed in the transverse and longitudinal planes. FINDINGS: Liver: The liver is enlarged and demonstrates heterogeneously increased echotexture consistent with severe hepatic steatosis. Note that this degrades acoustic penetration of the liver. There is no intrahepatic biliary ductal dilatation. The main portal vein is patent. Gallbladder: The gallbladder is normal in appearance. No gallstones are identified. There is no gallbladder wall thickening or pericholecystic fluid. A sonographic Del Real's sign is reportedly absent. The common bile duct measures up to 0.4 cm in diameter. Pancreas: Visualized portions of the pancreatic head and body are normal in appearance. Right kidney: Survey images of the right kidney demonstrate normal size and echotexture. There is no hydronephrosis. A 1.9 cm cyst is noted in the right upper pole. Ascites: None. IMPRESSION: 1. Hepatomegaly and severe hepatic steatosis. 2. No shadowing gallstones are identified. ACT 112: Negative or not required by law. Electronically signed by: Nick Iverson M.D. 10/02/2020 8:54 AM Chest X-Ray 10/05/20 17:48 XR chest 1V portable CLINICAL HISTORY: fever COMPARISON STUDY: October 01, 2020 FINDINGS: No pneumothorax. No pleural effusion. Bilateral lung volumes are decreased with crowded lung markings. Mild atelectasis is seen at bilateral bases. Cardiomediastinal silhouette is prominent which could be due to low inspiratory effort and portable technique. No significant pulmonary vascular congestion.. Osseous structures: unremarkable IMPRESSION: 1. Mild atelectasis at bilateral bases. Low inspiratory effort which limits evaluation. ACT 112: Negative or not required by law. The above report was generated using voice recognition software. It may contain grammatical, syntax or spelling errors. Electronically signed by: Violeta Del Toro DO 10/05/2020 7:42 PM Hospital Course (1) Acute renal failure: (2) High serum osmolar gap: (3) Pneumonia: (4) Severe sepsis: (5) Delirium tremens: (6) Alcoholism: (7) Hyponatremia: (8) Hypokalemia: (9) Hypomagnesemia: (10) Engages in vaping: (11) Hypertension: (12) Metabolic encephalopathy: The patient presented critically ill with evidence of bilateral pneumonia, severe sepsis, hyponatremia with sodium of 115, acute renal failure with creatinine of 6.9, potassium of 2.3, altered mental status, hypomagnesemia, acute alcoholic hepatitis, and acidosis. The patient had a mixed acidotic state including high osmolar gap metabolic acidosis. The latter was highly concerning for toxic ingestion such as methanol, etc. The patient denied any use of such, however. The patient was admitted to the ICU, started on IV antibiotics for his pneumoni a, electrolytes were corrected, IV fluids were administered, and after consultation with the state poison control office fomepizole was administered because of his high osmolar gap acidosis. Acute renal failure improved with IV fluids and supportive care. Hemodialysis was never needed. COVID testing and blood cultures were negative. His acidosis resolved with the above measures. Last sodium level prior to discharge was 137. Last creatinine check prior to discharge was <1. LFTs had improved significantly but did not fully normalize prior to discharge. Chest x-rays later in his stay were stable. We could not rule out vaping-associated lung injury as a cause of his chest x-ray findings (in addition to pnemonia). Mr Simpson ultimately developed severe alcohol withdrawal and DTs. He required a precedex infusion in the ICU for about 24-36 hours at the peak of his DTs. He was ultimately transitioned to the PCU where he was continued on IV antibiotics for his pneumonia, continued on alcohol withdrawal protocol, and required escalating number of medications for his DTs including phenobarbital and librium. He continued with low-grade fever despite treatment of his pneumonia (received 7 full days of rocephin/doxycycline). The low-grade fevers were thought 2nd to his DTs. About 24 hours prior to the patient leaving AMA his mental status was at its best. He was awake, alert, and oriented x 3 at that time. He had minimal confusion/hallucinations due to his alcohol withdrawal. On the day he left [facility] we had advised ongoing hospitalization because of still receiving IV ativan and still requiring moderate doses of phenobarbital and librium. He was seen by psychiatry on the day he left [facility] and he declined any intervention (inpatient rehab or outpatient options) for his alcoholism. We were also concerned about his housing situation on the day of him leaving [facility]. Social work did verify that he was indeed moving into a new apartment, however. Due to him leaving [facility] he did NOT receive prescriptions for his blood pressure medication, phenobarbital, or any other agents. He was counseled that he still had 2-3 days of mild alcohol withdrawal ahead and was at risk of seizures, etc. Despite such he refused to remain hospitalized, signed AMA papers, and left the hospital. He was told he would need to make his own follow-up appointments. Total Time Total Time Spent Total Time Spent (In Minutes): 60 Total Time Includes: Examination of the Patient, Discharge Planning and Communication With Other Providers Discharge Plan Discharge Items Patient Disposition: Against Medical Advice Reason For Visit: sepsis,lesley,multiple distrubances Activity: Resume your previous activity Non-emergency contact: Primary Care Provider Follow-up/Referrals: Duncan Peter MD [Primary Care Provider] - (You have been established with Dr. Peter at [facility] for primary care. Office phone number is .) Pending Studies at Discharge: No Stand-Alone Forms: My [facility], Smoking Cessation Medications and DC Order Prescriptions: Continued lisinopril 5 mg tablet 5 mg PO DAILY Qty: 30 RF: 0 buprenorphine-naloxone 8-2 mg tablet, sublingual 1 tab SUBLINGUAL BID RF: 0 Discharge Orders: Left Against Medical Advice (Routine); Ordered 10/11/20 Ordered By: Tashi Apple Admission Data Admit Date/Time: 10/01/20 13:55 Attending Provider: Tashi Apple Admit Provider: Tashi Apple Primary Care Provider: Duncan Peter Other Providers: Fredo Saravia ; Tom Ray ; Jordyn Retana ; Dr Russ ; Marium Sanchez ; Pedro Cramer Coding Level of Care Code D/C DAY MANAGEMENT >30 MINS Diagnoses Alcoholism F10.20 Pneumonia J18.9 Laterality: bilateral Lung location: lower lobe of lung Pneumonia type: due to unspecified organism Acute renal failure N17.9 Hyponatremia E87.1 High serum osmolar gap R74.8 Delirium tremens F10.231 Severe sepsis A41.9; R65.20 Hypokalemia E87.6 Hypomagnesemia E83.42 Engages in vaping Z72.89 Hypertension I10 Hypertension type: unspecified Metabolic encephalopathy G93.41
== END 2020-10-11 17:34 | disposition left against medical advice (07) | DRG 871 ==
LOC: ED 08:48 → SUATTDRO 13:55 → 1E 13:55 → 2E 10-06 14:33
DX: G93.41 Metabolic encephalopathy; E66.9 Obesity, unspecified; Z20.822 Contact with and (suspected) exposure to COVID-19; R74.8 Abnormal levels of other serum enzymes; Z79.899 Other long term (current) drug therapy; E83.39 Other disorders of phosphorus metabolism; Z68.30 Body mass index [BMI] 30.0-30.9, adult; E86.0 Dehydration; E87.4 Mixed disorder of acid-base balance; R65.21 Severe sepsis with septic shock; I10 Essential (primary) hypertension; T65.91XA Toxic effect of unspecified substance, accidental (unintentional), initial encounter; Z53.20 Procedure and treatment not carried out because of patient's decision for unspecified reasons; F10.231 Alcohol dependence with withdrawal delirium; E83.42 Hypomagnesemia; J68.9 Unspecified respiratory condition due to chemicals, gases, fumes and vapors; A41.9 Sepsis, unspecified organism; E87.1 Hypo-osmolality and hyponatremia; N17.9 Acute kidney failure, unspecified; R73.9 Hyperglycemia, unspecified; F17.210 Nicotine dependence, cigarettes, uncomplicated; F11.10 Opioid abuse, uncomplicated; K70.10 Alcoholic hepatitis without ascites; F17.290 Nicotine dependence, other tobacco product, uncomplicated; Z78.1 Physical restraint status; E87.6 Hypokalemia; E86.1 Hypovolemia; E78.1 Pure hyperglyceridemia; E83.51 Hypocalcemia; U07.0 Vaping-related disorder; J18.9 Pneumonia, unspecified organism; Q43.3 Congenital malformations of intestinal fixation; K20.90 Esophagitis, unspecified without bleeding

== ENCOUNTER 2020-12-23 11:52 | Inpatient (IN) ==
[2020-12-23] MEDS ORDERED: MULTI-VITAMIN INFUSION 10 ML, THIAMINE HCL 100 MG, FOLIC ACID 1 MG in SODIUM CHLORIDE 0... IV ONE (12:44)
[2020-12-23] MEDS ORDERED: LORazepam 2 MG/4 ML VIAL IV STA (12:44)
[2020-12-23] MEDS ORDERED: SODIUM CHLORIDE 0.9% 1000ML 1,000 ML IV ONE (12:46)
--- NOTE | 2020-12-23 12:56 | Emergency Department Note ---
Impression & Plan Alcohol withdrawal seizure, Hyponatremia, Acute renal failure, Hypokalemia, Alcohol withdrawal ED Provider Note NAME: JUAN GOLDBERG AGE: 35 SEX: M ARRIVES VIA: Ambulance INFORMANT: Patient, ED PROVIDER(S): Gregorio Kennedy MD CHIEF COMPLAINT: seizure PLAN: Disposition: Home MEDICAL DECISION MAKING: The patient is a pleasant 35-year-old gentleman with a past medical history of alcohol abuse, alcohol withdrawal, hypertension, obesity, history of prior drug abuse on Suboxone who presents to the emergency department after having a witnessed seizure-like episode which lasted approximately 10 minutes with postictal confusion which occurred when he was "chugging a red bull". Upon further discussion with the patient he does admit that he has been attempting to cut back his alcohol consumption recently. He last drank alcohol at 3 AM this morning. He reports his usual amount would be at least 10 shots of fire whiskey and numerous hard lemonade large cans in 1 day. He reports he has cut back on a couple of cans of hard lemonade and attempting to take several less fire whiskey shots daily. He denies any recent illness including denies fevers, chills, cough, congestion, GI or symptoms. On arrival the patient is fatigued appearing but no acute distress, afebrile with heart in the 130s and vital signs otherwise stable. He appears clinically dry. He has minor contusion to the right temporal scalp without bony crepitus. There is evidence of tongue biting with minor laceration on the right distal and lateral aspect of the tongue. He has no focal logic deficits. He appears mildly diaphoretic but is not tremulous at this time. EKG demonstrates sinus tachycardia without overt acute ischemia. Chest x-ray negative for acute cardiopulmonary process. CT of the head negative for acute abnormality. WBC, hemoglobin within normal limits. Platelets 126K proximate to prior range of values in the setting of his alcoholism. INR is 1.1, within normal limits. Chemistry without metabolic acidosis. However there is acute renal failure with creatinine of 2.6 in the setting of having normalized renal function on his last admission in September 2020. No metabolic acidosis. Sodium is 118 with glucose 142. Potassium 3.1 with repletion initiated. LFTs are elevated in the setting of the patient's alcoholism increased from prior elevations. Lipase within normal limits. COVID-19 PCR was negative. Patient was treated with 2 mg IV Ativan on arrival given suspicion for alcohol withdrawal seizure with improvement in his heart rate to the 120s and appearing more comfortable. IV fluid hydration ordered with banana bag and normal saline given the patient appears clinically dry. Unfortunately the peripheral IV site had failed and fluids did not get administered initially. There was a delay in IV team securing additional access and so I placed an ultrasound-guided peripheral line in the right AC. Given the patient was mentating normally on arrival, suspect the patient's hyponatremia is more likely chronic in the setting of his alcoholism and his seizure is unlikely to be related to this. Rather the patient's blood alcohol was undetectable today and given his report of attempting to taper himself down from his alcohol use most likely explains his seizure episode. Patient is in agreement with plan for admission for further treatment of his alcohol withdrawal and hyponatremia. He is interested in detox. AWSS and prn Ativan. Repeat BMP ordered and pending following completion of IVF. Case was discussed with Dr. Lai [facility] hospitalist, who will evaluate the patient for admission. Triage Nursing notes reviewed and agree them. Prior medical records reviewed Vital Signs: reviewed and remarkable for tachycardia. Differential diagnosis: Epilepsy, infection, hypoglycemia, electrolyte abnormalities, cardiac sources, intracerebral event, trauma, toxicologic, neurologic, syncope, as well as other pathologies. ER treatment provided: See below. Diagnostics interpreted by me: ECG: Sinus tachycardia, 129 bpm, no ectopy, ST abnormality, no overt ST elevation or depression, QTC 460, QRS 90. Cardiac Monitoring: An order for continuous cardiac monitoring was placed and demonstrated sinus tachycardia, 129 bpm, no ectopy. Laboratory studies: See below Imaging studies: See below Consultation(s): Case was discussed with Dr. Lai [facility] hospitalist, who will evaluate the patient for admission. HPI: The patient is a pleasant 35-year-old gentleman with a past medical history of alcohol abuse, alcohol withdrawal, hypertension, obesity, history of prior drug abuse on Suboxone who presents to the emergency department after having a witnessed seizure-like episode which lasted approximately 10 minutes with postictal confusion which occurred when he was "chugging a red bull". Upon further discussion with the patient he does admit that he has been attempting to cut back his alcohol consumption recently. He last drank alcohol at 3 AM this morning. He reports his usual amount would be at least 10 shots of fire whiskey and numerous hard lemonade large cans in 1 day. He reports he has cut back on a couple of cans of hard lemonade and attempting to take several less fire whiskey shots daily. He denies any recent illness including denies fevers, chills, cough, congestion, GI or symptoms. ROS: See above HPI for pertinent positives & negatives. A total of 10 systems reviewed and were otherwise negative. PAST MEDICAL HISTORY:See Below PAST SURGICAL HISTORY:See Below FAMILY HISTORY:See Below SOCIAL HISTORY:See Below HOME MEDICATIONS:See Below ALLERGIES:See Below VITALS:See Below PHYSICAL EXAMINATION: GENERAL: Awake, alert, fatigued-appearing, in no distress HENT: Normocephalic, Minor contusion to the right temporal scalp without bony cr epitus. Evidence of tongue biting with minor laceration on the right distal and lateral aspect of the tongue. EYES: Normal conjunctiva. Sclera non-icteric. NECK: Supple. No nuchal rigidity. FROM. No JVD. RESPIRATORY: Clear to auscultation. CARDIAC: Tachycardic rate, normal rhythm. Extremities warm and well perfused. Pulses equal. ABDOMEN: Soft, non-distended. No tenderness to palpation. No rebound or guarding. No masses. RECTAL: Deferred. MUSCULOSKELETAL: Chest examination reveals no tenderness. The back is symmetrical on inspection without obvious abnormality. There is no CVA tenderness to palpation. No joint edema. LOWER EXTREMITIES: Calves are equal size bilaterally and non-tender. No edema. No discoloration. NEURO: No focal sensory or motor deficits noted. Mildly diaphoretic but not t remulous. DTRs wnl. No clonus. SKIN: No rash or jaundice noted. ED COURSE: Critical Care: I have personally spent greater than 95 minutes of critical care time in the direct management of this patient. This includes bedside care, interpretation of diagnostic studies, and testing, discussion with consultants, patient, and family members, and other required patient management activities. This 95 minutes is in excess of all separately billable procedures. Gregorio Kennedy MD Past Med/Surg History Medical History Acute hyperglycemia Acute hypokalemia Acute hyponatremia Acute renal failure Bilateral pneumonia Surgical History No pertinent past surgical history Family History Other No pertinent family history Social History Smoking Status: Current every day smoker Tobacco Type: Cigarettes Hx Alcohol Use: Yes Alcohol type: hard liquor Hx Substance Use: No Preferred Language: [place] Communication Ability: Unable Beliefs That Will Affect Care: None Current Living Situation: Alone Feels Safe at Home: Yes Assistive Devices: None Allergies Allergies Allergy/AdvReac Type Severity Reaction Status Date / Time No Known Allergies Allergy Unverified 12/23/20 15:05 Home Meds Home Medications Medication Instructions Recorded Confirmed buprenorphine 8 mg-naloxone 2 mg 1 tab SUBLINGUAL BID 09/04/20 12/23/20 sublingual tablet lisinopril 5 mg tablet 5 mg PO QAM 12/23/20 12/23/20 Results & Data (ED) Vital Signs Vital Signs - 24 hr 12/23/20 12:00 12/23/20 12:07 12/23/20 12:30 Temperature 37.5 C Temperature Source Oral Pulse Rate 130 H 131 H 123 H Pulse Rate from SpO2 Sensor 131 H 124 H Respiratory Rate 16 22 31 H Respiratory Effort / Characteristics Non-Labored Respiratory Depth Normal Respiratory Pattern Regular Blood Pressure 106/63 Blood Pressure Mean 77 Pulse Oximetry 95 99 99 Oxygen Delivery Method Room Air Sepsis Recent Fever Within 48 Hours No Sepsis New/Unexplained Change in Mental Status No Sepsis Action Taken by Nursing No Action Required 12/23/20 13:00 12/23/20 14:00 12/23/20 14:30 Temperature Temperature Source Pulse Rate 126 H 121 H 121 H Pulse Rate from SpO2 Sensor 126 H 122 H Respiratory Rate 21 19 19 Respiratory Effort / Characteristics Respiratory Depth Respiratory Pattern Blood Pressure 96/56 L 108/74 Blood Pressure Mean 69 85 Pulse Oximetry 98 100 Oxygen Delivery Method Room Air Sepsis Recent Fever Within 48 Hours Sepsis New/Unexplained Change in Mental Status Sepsis Action Taken by Nursing 12/23/20 15:00 12/23/20 15:30 12/23/20 16:18 Temperature Temperature Source Pulse Rate 125 H 117 H 123 H Pulse Rate from SpO2 Sensor 125 H Respiratory Rate 20 17 15 Respiratory Effort / Characteristics Respiratory Depth Respiratory Pattern Blood Pressure 136/88 165/102 H Blood Pressure Mean 104 123 Pulse Oximetry 98 Oxygen Delivery Method Sepsis Recent Fever Within 48 Hours Sepsis New/Unexplained Change in Mental Status Sepsis Action Taken by Nursing 12/23/20 16:30 Temperature Temperature Source Pulse Rate 119 H Pulse Rate from SpO2 Sensor Respiratory Rate 20 Respiratory Effort / Characteristics Respiratory Depth Respiratory Pattern Blood Pressure 132/86 Blood Pressure Mean 101 Pulse Oximetry Oxygen Delivery Method Sepsis Recent Fever Within 48 Hours Sepsis New/Unexplained Change in Mental Status Sepsis Action Taken by Nursing Laboratory Data Attestation: I reviewed the patient's lab results. Result diagrams: 12/23/20 12:56 12/23/20 12:56 Lab Results 12/23/20 12/23/20 12/23/20 Range/Units 12:56 12:56 12:56 WBC 8.14 (4.8-10.8) K/uL RBC 4.49 L (4.7-6.1) M/uL Hgb 14.5 (14.0-18.0) g/dL Hct 41.5 L (42-52) % MCV 92.4 (80-100) fL MCH 32.3 (25-34) pg MCHC 34.9 (32-36) g/dL RDW Std Deviation 42.6 (36.4-46.3) fL RDW Coeff of Desiree 12.7 (11.5-14.5) % Plt Count 126 L (130-400) K/uL MPV 13.0 H (7.4-10.4) fL Immature Gran % (Auto) 0.7 % Neut % (Auto) 76.9 % Lymph % (Auto) 12.9 % Traill % (Auto) 8.6 % Eos % (Auto) 0.7 % Baso % (Auto) 0.2 % Neut # (Auto) 6.25 (1.4-6.5) K/uL Lymph # (Auto) 1.05 L (1.2-3.4) K/uL [place] # (Auto) 0.70 H (0.11-0.59) K/uL Eos # (Auto) 0.06 (0-0.5) K/uL Baso # (Auto) 0.02 (0-0.2) K/uL Immature Gran # (Auto) 0.06 H (0.00-0.02) K/uL Platelet Estimate Decreased L (Normal) PT 10.8 (9.0-12.0) Seconds INR 1.1 (0.9-1.1) APTT 21.8 (21.0-31.0) Seconds PTT Ratio 0.8 Sodium (136-145) mmol/L Potassium (3.5-5.1) mmol/L Chloride (98-107) mmol/L Carbon Dioxide (21-32) mmol/L Anion Gap (3-11) BUN (7-18) mg/dl Creatinine (0.6-1.4) mg/dl Est Cr Clr Drug Dosing ml/min Est GFR ( Amer) ml/min Est GFR (Non-Af Amer) ml/min BUN/Creatinine Ratio (10-20) Glucose (70-99) mg/dl Calcium (8.5-10.1) mg/dl Total Bilirubin (0.2-1) mg/dl AST (15-37) U/L ALT (12-78) U/L Alkaline Phosphatase (45-117) U/L Total Protein (6.4-8.2) gm/dl Albumin (3.4-5.0) gm/dl Globulin (2.5-4.0) gm/dl Albumin/Globulin Ratio (0.9-2) Lipase (73-393) U/L Specimen Hemolysis Urine Color Urine Appearance (Clear) Urine pH (4.5-7.5) Ur Specific [place] (1.000-1.030) Urine Protein (Negative) Urine Glucose (UA) (Negative) Urine Ketones (Negative) Urine Blood (Negative) Urine Nitrite (Negative) Urine Bilirubin (Negative) Urine Urobilinogen (Negative) Ur Leukocyte Esterase (Negative) Urine WBC (Auto) (0-5) /hpf Urine RBC (Auto) (0-4) /hpf U Hyaline Cast (Auto) (0-5) /lpf U Epithel Cells (Auto) (0-5) /lpf Urine Bacteria (Auto) (Negative) Urine Osmolality (500-800) mOsm/kg Ur Random Creatinine mg/dl Ur Random Sodium mmol/L Urine Opiates Screen (Neg) Ur Methadone, Qual (Neg) Acetaminophen Urine Barbiturates (Neg) Ur Phencyclidine (PCP) (Neg) U Amphetamin/Meth Scrn (Neg) MDMA (Ecstasy) Screen (Neg) U Benzodiazepines Scrn (Neg) Ur Cocaine Metabolite (Neg) U Marijuana (THC) Screen (Neg) Ethyl Alcohol mg/dL < 3.0 (0-3) mg/dl COVID-19 Eval Order SARS-CoV-2 (PCR) (Negative) 12/23/20 12/23/20 12/23/20 Range/Units 12:56 13:01 13:01 WBC (4.8-10.8) K/uL RBC (4.7-6.1) M/uL Hgb (14.0-18.0) g/dL Hct (42-52) % MCV (80-100) fL MCH (25-34) pg MCHC (32-36) g/dL RDW Std Deviation (36.4-46.3) fL RDW Coeff of Desiree (11.5-14.5) % Plt Count (130-400) K/uL MPV (7.4-10.4) fL Immature Gran % (Auto) % Neut % (Auto) % Lymph % (Auto) % [place] % (Auto) % Eos % (Auto) % Baso % (Auto) % Neut # (Auto) (1.4-6.5) K/uL Lymph # (Auto) (1.2-3.4) K/uL [place] # (Auto) (0.11-0.59) K/uL Eos # (Auto) (0-0.5) K/uL Baso # (Auto) (0-0.2) K/uL Immature Gran # (Auto) (0.00-0.02) K/uL Platelet Estimate (Normal) PT (9.0-12.0) Seconds INR (0.9-1.1) APTT (21.0-31.0) Seconds PTT Ratio Sodium 118 L* (136-145) mmol/L Potassium 3.1 L (3.5-5.1) mmol/L Chloride 76 L (98-107) mmol/L Carbon Dioxide 30 (21-32) mmol/L Anion Gap 12.0 H (3-11) BUN 15 (7-18) mg/dl Creatinine 2.62 H (0.6-1.4) mg/dl Est Cr Clr Drug Dosing 42.8 ml/min Est GFR ( Amer) 34.9 ml/min Est GFR (Non-Af Amer) 30.1 ml/min BUN/Creatinine Ratio 5.8 L (10-20) Glucose 142 H (70-99) mg/dl Calcium 10.2 H (8.5-10.1) mg/dl Total Bilirubin 3.4 H (0.2-1) mg/dl AST 408 H (15-37) U/L ALT 121 H (12-78) U/L Alkaline Phosphatase 191 H (45-117) U/L Total Protein 8.2 (6.4-8.2) gm/dl Albumin 3.5 (3.4-5.0) gm/dl Globulin 4.7 H (2.5-4.0) gm/dl Albumin/Globulin Ratio 0.7 L (0.9-2) Lipase 189 (73-393) U/L Specimen Hemolysis Urine Color Urine Appearance (Clear) Urine pH (4.5-7.5) Ur Specific [place] (1.000-1.030) Urine Protein (Negative) Urine Glucose (UA) (Negative) Urine Ketones (Negative) Urine Blood (Negative) Urine Nitrite (Negative) Urine Bilirubin (Negative) Urine Urobilinogen (Negative) Ur Leukocyte Esterase (Negative) Urine WBC (Auto) (0-5) /hpf Urine RBC (Auto) (0-4) /hpf U Hyaline Cast (Auto) (0-5) /lpf U Epithel Cells (Auto) (0-5) /lpf Urine Bacteria (Auto) (Negative) Urine Osmolality (500-800) mOsm/kg Ur Random Creatinine mg/dl Ur Random Sodium mmol/L Urine Opiates Screen (Neg) Ur Methadone, Qual (Neg) Acetaminophen Urine Barbiturates (Neg) Ur Phencyclidine (PCP) (Neg) U Amphetamin/Meth Scrn (Neg) MDMA (Ecstasy) Screen (Neg) U Benzodiazepines Scrn (Neg) Ur Cocaine Metabolite (Neg) U Marijuana (THC) Screen (Neg) Ethyl Alcohol mg/dL (0-3) mg/dl COVID-19 Eval Order Covid19 at [facility] SARS-CoV-2 (PCR) NEGATIVE (Negative) 12/23/20 12/23/20 12/23/20 Range/Units 16:10 16:10 16:10 WBC (4.8-10.8) K/uL RBC (4.7-6.1) M/uL Hgb (14.0-18.0) g/dL Hct (42-52) % MCV (80-100) fL MCH (25-34) pg MCHC (32-36) g/dL RDW Std Deviation (36.4-46.3) fL RDW Coeff of Desiree (11.5-14.5) % Plt Count (130-400) K/uL MPV (7.4-10.4) fL Immature Gran % (Auto) % Neut % (Auto) % Lymph % (Auto) % [place] % (Auto) % Eos % (Auto) % Baso % (Auto) % Neut # (Auto) (1.4-6.5) K/uL Lymph # (Auto) (1.2-3.4) K/uL [place] # (Auto) (0.11-0.59) K/uL Eos # (Auto) (0-0.5) K/uL Baso # (Auto) (0-0.2) K/uL Immature Gran # (Auto) (0.00-0.02) K/uL Platelet Estimate (Normal) PT (9.0-12.0) Seconds INR (0.9-1.1) APTT (21.0-31.0) Seconds PTT Ratio Sodium (136-145) mmol/L Potassium (3.5-5.1) mmol/L Chloride (98-107) mmol/L Carbon Dioxide (21-32) mmol/L Anion Gap (3-11) BUN (7-18) mg/dl Creatinine (0.6-1.4) mg/dl Est Cr Clr Drug Dosing ml/min Est GFR ( Amer) ml/min Est GFR (Non-Af Amer) ml/min BUN/Creatinine Ratio (10-20) Glucose (70-99) mg/dl Calcium (8.5-10.1) mg/dl Total Bilirubin (0.2-1) mg/dl AST (15-37) U/L ALT (12-78) U/L Alkaline Phosphatase (45-117) U/L Total Protein (6.4-8.2) gm/dl Albumin (3.4-5.0) gm/dl Globulin (2.5-4.0) gm/dl Albumin/Globulin Ratio (0.9-2) Lipase (73-393) U/L Specimen Hemolysis Urine Color Yellow Urine Appearance Cloudy A (Clear) Urine pH 6.0 (4.5-7.5) Ur Specific [place] 1.009 (1.000-1.030) Urine Protein 1+ H (Negative) Urine Glucose (UA) 1+ H (Negative) Urine Ketones Negative (Negative) Urine Blood 1+ H (Negative) Urine Nitrite Negative (Negative) Urine Bilirubin Negative (Negative) Urine Urobilinogen Negative (Negative) Ur Leukocyte Esterase Negative (Negative) Urine WBC (Auto) 5-10 H (0-5) /hpf Urine RBC (Auto) 0-4 (0-4) /hpf U Hyaline Cast (Auto) 5-10 H (0-5) /lpf U Epithel Cells (Auto) 5-10 H (0-5) /lpf Urine Bacteria (Auto) Negative (Negative) Urine Osmolality 211 L (500-800) mOsm/kg Ur Random Creatinine mg/dl Ur Random Sodium mmol/L Urine Opiates Screen Neg (Neg) Ur Methadone, Qual Neg (Neg) Acetaminophen Urine Barbiturates Neg (Neg) Ur Phencyclidine (PCP) Neg (Neg) U Amphetamin/Meth Scrn Neg (Neg) MDMA (Ecstasy) Screen Neg (Neg) U Benzodiazepines Scrn Neg (Neg) Ur Cocaine Metabolite Neg (Neg) U Marijuana (THC) Screen Neg (Neg) Ethyl Alcohol mg/dL (0-3) mg/dl COVID-19 Eval Order SARS-CoV-2 (PCR) (Negative) 12/23/20 12/23/20 Range/Units 16:10 Unknown WBC (4.8-10.8) K/uL RBC (4.7-6.1) M/uL Hgb (14.0-18.0) g/dL Hct (42-52) % MCV (80-100) fL MCH (25-34) pg MCHC (32-36) g/dL RDW Std Deviation (36.4-46.3) fL RDW Coeff of Desiree (11.5-14.5) % Plt Count (130-400) K/uL MPV (7.4-10.4) fL Immature Gran % (Auto) % Neut % (Auto) % Lymph % (Auto) % [place] % (Auto) % Eos % (Auto) % Baso % (Auto) % Neut # (Auto) (1.4-6.5) K/uL Lymph # (Auto) (1.2-3.4) K/uL [place] # (Auto) (0.11-0.59) K/uL Eos # (Auto) (0-0.5) K/uL Baso # (Auto) (0-0.2) K/uL Immature Gran # (Auto) (0.00-0.02) K/uL Platelet Estimate (Normal) PT (9.0-12.0) Seconds INR (0.9-1.1) APTT (21.0-31.0) Seconds PTT Ratio Sodium (136-145) mmol/L Potassium (3.5-5.1) mmol/L Chloride (98-107) mmol/L Carbon Dioxide (21-32) mmol/L Anion Gap (3-11) BUN (7-18) mg/dl Creatinine (0.6-1.4) mg/dl Est Cr Clr Drug Dosing ml/min Est GFR ( Amer) ml/min Est GFR (Non-Af Amer) ml/min BUN/Creatinine Ratio (10-20) Glucose (70-99) mg/dl Calcium (8.5-10.1) mg/dl Total Bilirubin (0.2-1) mg/dl AST (15-37) U/L ALT (12-78) U/L Alkaline Phosphatase (45-117) U/L Total Protein (6.4-8.2) gm/dl Albumin (3.4-5.0) gm/dl Globulin (2.5-4.0) gm/dl Albumin/Globulin Ratio (0.9-2) Lipase (73-393) U/L Specimen Hemolysis Urine Color Urine Appearance (Clear) Urine pH (4.5-7.5) Ur Specific [place] (1.000-1.030) Urine Protein (Negative) Urine Glucose (UA) (Negative) Urine Ketones (Negative) Urine Blood (Negative) Urine Nitrite (Negative) Urine Bilirubin (Negative) Urine Urobilinogen (Negative) Ur Leukocyte Esterase (Negative) Urine WBC (Auto) (0-5) /hpf Urine RBC (Auto) (0-4) /hpf U Hyaline Cast (Auto) (0-5) /lpf U Epithel Cells (Auto) (0-5) /lpf Urine Bacteria (Auto) (Negative) Urine Osmolality (500-800) mOsm/kg Ur Random Creatinine 48.1 mg/dl Ur Random Sodium 35 mmol/L Urine Opiates Screen (Neg) Ur Methadone, Qual (Neg) Acetaminophen Cancelled Urine Barbiturates (Neg) Ur Phencyclidine (PCP) (Neg) U Amphetamin/Meth Scrn (Neg) MDMA (Ecstasy) Screen (Neg) U Benzodiazepines Scrn (Neg) Ur Cocaine Metabolite (Neg) U Marijuana (THC) Screen (Neg) Ethyl Alcohol mg/dL (0-3) mg/dl COVID-19 Eval Order SARS-CoV-2 (PCR) (Negative) Administered Medications Lorazepam (Ativan) 2 mg in 4 mls @ 4 mls/min IV UD PRN; Protocol PRN Reason: EtOH Withdrawl AWSS Score 8,9 Stop: 01/22/21 16:20 Last Admin: 12/23/20 16:39 Dose: 4 mls/min Documented by: [id number] Discontinued Medications Multivitamins 10 ml/ Thiamine HCl 100 mg/ Folic Acid 1 mg/Sodium Chloride 1,011.2 mls @ 1,011.2 mls/hr IV .Q1H ONE Stop: 12/23/20 13:43 Last Admin: 12/23/20 13:20 Dose: 1,011.2 mls/hr Documented by: [id number] Lorazepam (Ativan) 2 mg in 4 mls @ 4 mls/min IV NOW STA Stop: 12/23/20 12:45 Last Admin: 12/23/20 12:55 Dose: 4 mls/min Documented by: [id number] Sodium Chloride (Nss 1000ml) 1,000 mls @ 999 mls/hr IV .Q1H1M ONE Stop: 12/23/20 13:46 Last Admin: 12/23/20 12:55 Dose: 999 mls/hr Documented by: [id number] Potassium Chloride (K Paco / Wtr) 10 meq in 100 mls @ 100 mls/hr IV Q1H BRENDA Stop: 12/23/20 16:59 Last Admin: 12/23/20 16:38 Dose: 100 mls/hr Documented by: [id number] Infusion: 12/23/20 16:38 Dose: 100 mls/hr Documented by: [id number] Admin: 12/23/20 15:39 Dose: 100 mls/hr Documented by: [id number] Imaging Data Radiologist's Impression: Head CT 12/23/20 12:44 CT head/brain wo con CLINICAL HISTORY: 35 years-old Male with seizure, pain, headstrike. Acute seizure with headache status post trauma TECHNIQUE: Multiple axial CT images of the head were obtained without contrast. A dose lowering technique was utilized adhering to the principles of ALARA. CT DOSE: 720.95 mGycm COMPARISON: Head CT 09/05/2020 FINDINGS: No acute intracranial hemorrhage, midline shift, intracranial mass, hydrocephalus, territorial ischemia or abnormal extra-axial collection. Mildly motion degraded exam. Ill-defined decreased attenuation of the anterior left frontal lobe is likely artifactual. The calvarium is intact. Mild polypoid mucosal thickening of the left sphenoid sinus. Remaining paranasal sinuses are clear. IMPRESSION: No acute intracranial abnormality. ACT 112: Negative or not required by law. The above report was generated using voice recognition software. It may contain grammatical, syntax or spelling errors. Electronically signed by: Chao Saavedra M.D. 12/23/2020 1:54 PM Chest X-Ray 12/23/20 12:45 XR chest 1V portable HISTORY: 35 years-old Male Chest Pain acute atypical chest pain COMPARISON: Chest radiograph 10/05/2020 TECHNIQUE: Portable AP view of the chest FINDINGS: Cardiac silhouette is upper limits of normal in size. No pneumothorax, pleural effusion, airspace consolidation or overt pulmonary edema. No acute fracture. IMPRESSION: No acute process. ACT 112: Negative or not required by law. The above report was generated using voice recognition software. It may contain grammatical, syntax or spelling errors. Electronically signed by: Chao Saavedra M.D. 12/23/2020 1:30 PM Discharge Plan Visit Data Chief Complaint: Seizure ED Provider: Gregorio Kennedy Discharge Problem: Alcohol withdrawal seizure, Hyponatremia, Acute renal failure, Hypokalemia, Alcohol withdrawal Forms Stand Alone Forms: [employer] Prescriptions Prescriptions: No Action lisinopril 5 mg tablet 5 mg PO QAM RF: 0 buprenorphine-naloxone 8-2 mg tablet, sublingual 1 tab SUBLINGUAL BID RF: 0 Referrals Referrals: [place],Duncan E., MD [Physician] - Discharge Problem: Alcohol withdrawal seizure Qualifiers: Complication of substance-induced condition: with unspecified complication Qualified Code(s): F10.239 - Alcohol dependence with withdrawal, unspecified Acute renal failure Qualifiers: Acute renal failure type: unspecified Qualified Code(s): N17.9 - Acute kidney failure, unspecified Alcohol withdrawal Qualifiers: Complication of substance-induced condition: with unspecified complication Qualified Code(s): F10.239 - Alcohol dependence with withdrawal, unspecified
[2020-12-23 13:25] LABS: INR 1.1 (0.9-1.1); Partial Thromboplastin Ratio 0.8; Partial Thromboplastin Time 21.8 Seconds (21.0-31.0); Prothrombin Time 10.8 Seconds (9.0-12.0)
--- NOTE | 2020-12-23 13:32 | XRay Report ---
XR chest 1V portable HISTORY: 35 years-old Male Chest Pain acute atypical chest pain COMPARISON: Chest radiograph 10/05/2020 TECHNIQUE: Portable AP view of the chest FINDINGS: Cardiac silhouette is upper limits of normal in size. No pneumothorax, pleural effusion, airspace con solidation or overt pulmonary edema. No acute fracture. IMPRESSION: No acute process. ACT 112: Negative or not required by law. The above report was generated using voice recognition software. It may contain grammatical, syntax o r spelling errors. Electronically signed by: Chao Saavedra M.D. 12/23/2020 1:30 PM
[2020-12-23 13:37] LABS: Basophils # (auto) 0.02 K/uL (0-0.2); Basophils % (auto) 0.2 %; Eosinophils # (auto) 0.06 K/uL (0-0.5); Eosinophils % (auto) 0.7 %; Hematocrit (blood only) 41.5 % (42-52); Hemoglobin 14.5 g/dL (14.0-18.0); Immature Granulocytes # (auto) 0.06 K/uL (0.00-0.02); Immature Granulocytes % (auto) 0.7 %; Lymphocytes # (auto) 1.05 K/uL (1.2-3.4); Lymphocytes % (auto) 12.9 %; Mean Corpuscular Hemoglobin 32.3 pg (25-34); Mean Corpuscular Hgb Conc 34.9 g/dL (32-36); Mean Corpuscular Volume 92.4 fL (80-100); Monocytes % (auto) 8.6 %; Neutrophils # (auto) 6.25 K/uL (1.4-6.5); Neutrophils % (auto) 76.9 %; Platelet Count 126 K/uL (130-400); Platelet Estimate Decreased (Normal); RDW Coefficient of Variation 12.7 % (11.5-14.5); RDW Standard Deviation 42.6 fL (36.4-46.3); Red Blood Count 4.49 M/uL (4.7-6.1); White Blood Count 8.14 K/uL (4.8-10.8)
[2020-12-23 13:47] LABS: Albumin Globulin Ratio 0.7 (0.9-2); Albumin Level 3.5 gm/dl (3.4-5.0); BUN Creatinine Ratio 5.8 (10-20); Bilirubin,Total 3.4 mg/dl (0.2-1); Calcium 10.2 mg/dl (8.5-10.1); Creatinine Clr Calc Pharmacy 42.8 ml/min; Est GFR (African American) 34.9 ml/min; Est GFR (Non-African American) 30.1 ml/min; Globulin 4.7 gm/dl (2.5-4.0); Potassium 3.1 mmol/L (3.5-5.1); Total Protein 8.2 gm/dl (6.4-8.2)
--- NOTE | 2020-12-23 13:56 | CT Scan Report ---
CT head/brain wo con CLINICAL HISTORY: 35 years-old Male with seizure, pain, headstrike. Acute seizure with headache stat us post trauma TECHNIQUE: Multiple axial CT images of the head were obtained without contrast. A dose lowering tech nique was utilized adhering to the principles of ALARA. CT DOSE: 720.95 mGycm COMPARISON: Head CT 09/05/2020 FINDINGS: No acute intracranial hemorrhage, midline shift, intracranial mass, hydrocephalus, territorial ischem ia or abnormal extra-axial collection. Mildly motion degraded exam. Ill-defined decreased attenuation of the anterior left frontal lobe is likely artifactual. The calvarium is intact. Mild polypoid mucosal thickening of the left sphenoid sinus. Remaining para nasal sinuses are clear. IMPRESSION: No acute intracranial abnormality. ACT 112: Negative or not required by law. The above report was generated using voice recognition software. It may contain grammatical, syntax o r spelling errors. Electronically signed by: Chao Saavedra M.D. 12/23/2020 1:54 PM
[2020-12-23] MEDS: POTASSIUM CHLORIDE / WTR 10 MEQ/100 ML PLCT IV SCH ×2 (15:39→16:38)
[2020-12-23] MEDS ORDERED: ATIVAN IV ALCOHOL WITHDRAWL IV PRN ×2 (16:21→20:51)
[2020-12-23] MEDS ORDERED: LORazepam 1 MG/2 ML VIAL IV STA (16:21)
[2020-12-23] MEDS ORDERED: LORazepam 3 MG/6 ML VIAL IV PRN (16:21)
[2020-12-23] MEDS ORDERED: LORazepam 1 MG/2 ML VIAL IV PRN ×3 (16:21→20:51)
[2020-12-23] MEDS ORDERED: THIAMINE HCL 200 MG in SODIUM CHLORIDE 0.9% 50 ML IV STA (16:21)
[2020-12-23] MEDS ORDERED: LORazepam 2 MG/4 ML VIAL IV PRN ×2 (16:21→20:51)
--- NOTE | 2020-12-23 16:26 | History & Physical Report ---
Date of Service December 23, 2020 Assessment & Plan (1) Alcohol withdrawal seizure: Plan: With witnessed seizure prior to arrival with tongue biting Remained delirious for many hours after seizure-likely postictal but also secondary to delirium tremens and also with hyponatremia Seizure most likely related to alcohol withdrawal but hyponatremia could be playing a role as well He recently cut his alcohol use and half within the last 6 days-previously had the equivalent of 20 alcoholic beverages daily but alcohol level here was negative on arrival Last drink was reportedly 4:00 AM on 12/23 CT head negative -Admit to ICU -Treatment of hyponatremia as below -Given history of refractory delirium tremens in the past requiring high doses of IV Ativan, Precedex drip, phenobarbital, and Librium---> discussed with coal sample tester-will load with IV phenobarbital 600 mg IV x1 now, then can give 150 mg IV times a total of 6 more doses maximum as needed for agitation. This is based on a maximum of 20 mg/KG with 30% being given as a loading dose with an ideal body weight of 75 kg -Would not give IV lorazepam or other benzodiazepines on top of IV phenobarbital-discontinued this which was ordered in the ER -Correct also his hyponatremia and if remains delirious despite treatment with phenobarbital and treatment of his hyponatremia, can give Haldol as needed for agitation -Seizure precautions -AWSS scales ordered -Was given 1 banana bag in the ER, will continue IV thiamine and folate as well as multivitamin daily -Patient is committed to quitting drinking-should strongly consider inpatient alcohol rehabilitation (2) Hyponatremia: Plan: Sodium 118 on arrival. He has a history of severe hyponatremia on previous admission for alcohol withdrawal He is also with acute kidney injury Urine sodium was 35 and urine osmolality was 211, however these were collected approximately 4 hours after arrival and after receiving IV fluids Most likely his hyponatremia is on the basis of Potomania in addition to acute kidney injury -Start Normosol at 100 mL's per hour Follow serial BMP every 4 hours -Follow closely in the ICU and watch for rapid correction-goal is 6-8 mEq per 24 hours to correct the sodium If urine output briskly increases to more than 1 L/h, may need DDAVP (3) BESSIE (acute kidney injury): Plan: Creatinine 2.6 on arrival up from baseline of 0.8 He has a history of acute kidney injury in 09/2020 with a creatinine of 6 Fortunately his potassium level is actually low and serum bicarbonate is normal. With hyponatremia as above Hydrating with IV fluids and with serial BMPs Watch urine output Holding home VICTOR M inhibitor (4) Delirium tremens: Plan: As above, already with seizure and ongoing delirium Start IV phenobarbital (5) Hypokalemia: Plan: Potassium low on arrival Replaced with 2K riders of 10 mEq each of potassium chloride in the ER We will give another 20 mEq of p.o. potassium chloride now Caution with acute kidney injury Follow BMP and magnesium (6) HTN (hypertension), benign: Plan: With history of hypertension Hold home lisinopril for acute kidney injury Treat hypertension with treatment of delirium tremens at this time (7) Opioid use disorder: Plan: Continue home Suboxone 8 mg twice daily-confirmed his dosing with the PDMP website (8) Alcohol use disorder: Plan: As above Needs alcohol rehab Plan: DVT prophylaxis-SCDs Disposition-admit to ICU History of Present Illness Chief Complaint: Seizure Primary Care Provider: NO PCP This patient is a 35-year-old male with a history of alcohol use disorder with alcohol dependence, opioid use disorder on Suboxone, hypertension, and obesity, who presents to the ER after having a witnessed seizure 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 As per ER physician's report, witnesses reported 10 minutes of seizure activity and postictal period. He did have evidence of tongue biting and remained confused and delirious when I saw him upon admission in the ER. He had no further seizure activity in the ER but was given a total of 3 mg of IV Ativan for evidence of alcohol withdrawal. He reported to me that his last drink was on 4 AM on 12/23. He reports that he typically drinks 10 small bottles of fireball alcohol daily which are each about 1.4 ounces of 40% alcohol, in addition to 5 cans of "double strength" Hermes's hard lemonade which is 8% alcohol approximately. This is the equivalent of 20 drinks per day. He reports that about 6 days ago he cut his number of drinks and half down to 5 bottles of fireball and 2 cans of Hermes's hard lemonade. His alcohol level on arrival was undetectable and his urine drug screen was negative. He was noted to be severely hyponatremic with a sodium of 118, and with acute kidney injury with a creatinine of 2.6. He was tachycardic and hypertensive and afebrile. A CT of the head was negative for acute disease as was a chest x-ray. Review of previous hospital admission from 09/2020 shows that he had refractory delirium tremens requiring very large doses of IV Ativan, ICU admission with Precedex drip, followed by phenobarbital as well as Librium. Finally on day 11 of that admission, he left the hospital AGAINST MEDICAL ADVICE. Patient reports to me today that he is committed to quitting drinking alcohol and would like to stay for detoxification, however he states "I will stay overnight tonight." Mostly, he confabulates about multiple things unrelated to ongoing acute issues. I discussed his care with the coal sample tester, Dr. Mcclure, and we decided to load him with IV phenobarbital given his seizure and ongoing delirium tremens and history of refractory DTs requiring ICU admission in addition to his severe hyponatremia. Allergies Allergy/AdvReac Type Severity Reaction Status Date / Time No Known Allergies Allergy Unverified 12/23/20 15:05 Home Medications Medication Instructions Recorded Confirmed Type buprenorphine 8 mg-naloxone 2 mg 1 tab SUBLINGUAL BID 09/04/20 12/23/20 History sublingual tablet lisinopril 5 mg tablet 5 mg PO QAM 12/23/20 12/23/20 History Past Med/Surg History Medical History Alcohol use disorder Bilateral pneumonia HTN (hypertension), benign Opioid use disorder Surgical History No pertinent past surgical history Family History Other No pertinent family history Social History Smoking Status: Current every day smoker Tobacco Type: Cigarettes Second Hand Exposure: Yes; Do You Dip or Chew Tobacco: No; Tobacco Cessation Education Requested by Patient: No (Patient asked for a cigarette) Hx Alcohol Use: Yes Alcohol type: hard liquor Hx Substance Use: No Preferred Language: Uzbek Communication Ability: Effective Scholarship Counselor Required: No Beliefs That Will Affect Care: None Current Living Situation: Alone Other Information That Helps Us Care for You: No Feels Safe at Home: Yes Safety Concerns: Feels Safe At This Time Assistive Devices: None Review of Systems Review of Systems: All systems reviewed & are unremarkable except as noted in HPI & below Physical Exam Constitutional: WD/WN, vitals as above + lethargic (Intermittently) Eyes: PERRL, conjunctivae normal, anicteric sclerae ENMT: Ears: no hearing impairment Nose: no external nose abnormality and no nasal discharge Mouth: + tongue abnormality (Bilateral tongue with bite rogers on the edge, no active bleeding) Neck: trachea midline, no thyromegaly Respiratory: normal respiratory effort, lungs clear to auscultation Cardiovascular: Rate/Rhythm: regular rhythm and + tachycardic Heart Sounds: no murmur Extremities: no calf tenderness and no edema Chest (Breasts): Chest: normal inspection of chest Gastrointestinal (Abdomen): normal bowel sounds, soft, nontender, no hepatosplenomegaly Musculoskeletal: Extremities: extremities normal to inspection; no cyanosis and no clubbing Skin: no rashes, warm and dry Neurologic: CN's II-XI intact bilaterally, moves all extremities, awake and + confused; no focal motor deficits Speech / Cognition: normal speech Motor/Sensory: + tremor; no sensory deficit Psychiatric: Orientation: alert, oriented to person, oriented to place and cooperative Apperance: + disheveled Eye Contact: + fair eye contact Motor Behavior: + psychomotor agitation Affect: + anxious affect Thought Process: + confabulations Lymphatic: no lymphedema Results & Data Results & Data ([facility]) Vital Signs (Past 12 Hours) Vital Signs Temp Pulse Resp BP Pulse Ox 12/23/20 15:00 125 H 20 136/88 98 12/23/20 14:30 121 H 19 12/23/20 14:00 121 H 19 108/74 100 12/23/20 13:00 126 H 21 96/56 L 98 12/23/20 12:30 123 H 31 H 99 12/23/20 12:07 131 H 22 99 12/23/20 12:00 37.5 C 130 H 16 106/63 95 Laboratory Results Laboratory results reviewed Diagnostic Findings Head CT 12/23/20 12:44 CT head/brain wo con CLINICAL HISTORY: 35 years-old Male with seizure, pain, headstrike. Acute seizure with headache status post trauma TECHNIQUE: Multiple axial CT images of the head were obtained without contrast. A dose lowering technique was utilized adhering to the principles of ALARA. CT DOSE: 720.95 mGycm COMPARISON: Head CT 09/05/2020 FINDINGS: No acute intracranial hemorrhage, midline shift, intracranial mass, hydrocephalus, territorial ischemia or abnormal extra-axial collection. Mildly motion degraded exam. Ill-defined decreased attenuation of the anterior left frontal lobe is likely artifactual. The calvarium is intact. Mild polypoid mucosal thickening of the left sphenoid sinus. Remaining paranasal sinuses are clear. IMPRESSION: No acute intracranial abnormality. ACT 112: Negative or not required by law. The above report was generated using voice recognition software. It may contain grammatical, syntax or spelling errors. Electronically signed by: Chao Saavedra M.D. 12/23/2020 1:54 PM Chest X-Ray 12/23/20 12:45 XR chest 1V portable HISTORY: 35 years-old Male Chest Pain acute atypical chest pain COMPARISON: Chest radiograph 10/05/2020 TECHNIQUE: Portable AP view of the chest FINDINGS: Cardiac silhouette is upper limits of normal in size. No pneumothorax, pleural effusion, airspace consolidation or overt pulmonary edema. No acute fracture. IMPRESSION: No acute process. ACT 112: Negative or not required by law. The above report was generated using voice recognition software. It may contain grammatical, syntax or spelling errors. Electronically signed by: Chao Saavedra M.D. 12/23/2020 1:30 PM Chest X-Ray 12/23/20 21:25 XR chest 1V portable INDICATION: MN ^S/P CVC placement . TECHNIQUE: Single frontal radiograph of the chest was obtained. Comparison: Comparison is made to chest one view 12/23/2020 at 1318 hours FINDINGS: Interval placement of a right central venous catheter with the tip in the lower SVC. The cardiomediastinal silhouette is normal. The lungs are clear. No evidence of pleural effusion or pneumothorax. IMPRESSION: Satisfactory position of a central venous catheter. ACT 112: Negative or not required by law. Electronically signed by: Giorgi Carlson M.D. 12/23/2020 9:47 PM ECG Additional Comments: ECG with sinus tachycardia, rate 129, very mild elevation in ST segment versus J-point elevation in inferior leads unchanged from previous PG Care Time/CCT Total # of Minutes Spent Total Time Spent with Patient: Total time spent is greater than 50% in coordination of care (as documented) at patient's floor/unit and/or counseling patient: Coding Level of Care Code 71677 Initial Inpt Care Lvl 3 Diagnoses BESSIE (acute kidney injury) N17.9 Alcohol withdrawal seizure F10.239; R56.9 Complication of substance-induced condition: with unspecified complication Hyponatremia E87.1 Hypokalemia E87.6 Delirium tremens F10.231 HTN (hypertension), benign I10 Opioid use disorder F11.90 Alcohol use disorder (1) Alcohol withdrawal seizure Complication of substance-induced condition: with unspecified complication Qualified Code(s): F10.239 - Alcohol dependence with withdrawal, unspecified; R56.9 - Unspecified convulsions
[2020-12-23 16:38] LABS: Appearance Urine Cloudy (Clear); Bacteria Urine Automated Negative (Negative); Bilirubin Urine Negative (Negative); Blood Urine 1+ (Negative); Color Urine Yellow; Glucose Urine UA 1+ (Negative); Ketones Urine Negative (Negative); Leukocyte Esterase Urine Negative (Negative); Nitrite Urine Negative (Negative); Protein Urine 1+ (Negative); RBC Urine Automated 0-4 /hpf (0-4); Specific Gravity Urine 1.009 (1.000-1.030); Urobilinogen Urine Negative (Negative)
[2020-12-23 17:09] LABS: Amphetamines+Metham, Urine Neg (Neg); Barbiturates, Urine Neg (Neg); Benzodiazepine, Urine Neg (Neg); Cocaine, Urine Neg (Neg); MDMA (Ecstacy), Urine Neg (Neg); Methadone, Urine Neg (Neg); Opiate, Urine Neg (Neg); Phencyclidine, Urine Neg (Neg)
[2020-12-23 17:14] LABS: Creatinine Urine Random 48.1 mg/dl
[2020-12-23] MEDS ORDERED: POTASSIUM CHLORIDE CRTAB 20 MEQ TABCR PO STA (17:25)
[2020-12-23] MEDS ORDERED: PHENobarbital sodium 65 MG/ML VIAL IV STA (17:54)
[2020-12-23] MEDS ORDERED: PHENOBARBITAL SODIUM IV ONE (18:15)
[2020-12-23] MEDS ORDERED: ICU PROTOCOL FOR HYPERGLYCEMIA PRN (19:41)
[2020-12-23] MEDS ORDERED: HALOPERIDOL LACTATE 5 MG/ML 1 ML VIAL IM STA (20:34)
[2020-12-23] MEDS ORDERED: LORazepam 2 MG/ML VIAL (IM USE) IM STA (20:34)
[2020-12-23] MEDS ORDERED: HALOPERIDOL LACTATE 5 MG/ML 1 ML VIAL ONE (20:37)
[2020-12-23] MEDS ORDERED: LORazepam 2 MG/4 ML VIAL ONE (20:38)
[2020-12-23] MEDS ORDERED: LORazepam 1 MG TAB PO PRN (20:51)
[2020-12-23 21:17] LABS: BUN Creatinine Ratio 7.8 (10-20); Calcium 8.9 mg/dl (8.5-10.1); Creatinine Clr Calc Pharmacy 62.4 ml/min; Est GFR (African American) 46.4 ml/min
--- NOTE | 2020-12-23 21:29 | Procedure Note ---
Procedure Note Date of Service December 23, 2020 Note INTERNAL JUGULAR CENTRAL LINE PROCEDURE NOTE: Procedure: Internal Jugular Central Line Placement Attending: Dr. Tom Ray Provider: IAM Georges Indication: Poor Venous Access, Multiple Lab Draws Necessary, IV medications n ecessary Anesthesia: Lidocaine 1% Line was placed emergently in the setting of delirium tremens from alcohol withdrawal following seizure, acute hyponatremia and unable to obtain peripheral IV access A time-out was completed verifying correct patient, procedure, site, positioning, and implants(s) or special equipment if applicable. Patients right neck was cleansed and draped in the typical sterile fashion using Chloraprep. The Internal Jugular Vein and Carotid Artery were identified using ultrasound. The superficial tissue was anesthetized using 5 mL of 1% lidocaine without epinephrine under direct visualization with the ultrasound. After adequate anesthetization was achieved, the Internal Jugular vein was cannulated under direct ultrasound guidance using an introducer needle on a syringe. Good venous blood return was maintained prior to removal of syringe from introducer needle. Using Seldinger Technique, a guide wire was advanced through the introducer needle without resistance. The introducer needle was removed and ultrasound images were obtained of the guide wire within the Internal Jugular Vein and saved to the patients medical record. A small incision was made in penetrating fashion at the guide wire insertion site utilizing an 11 blade scalpel. The dilator was advanced to the vessel without resistance. The dilator was exchanged for the triple lumen catheter which was advanced into the vessel without resistance. The guide wire was removed intact from the catheter without issue. Claves were placed on each catheter tip with confirmation of good blood flow from each lumen. Each port was easily flushed with sterile saline. The catheter was placed at 17 cm and sutured in place. BioPatch was applied to the catheter and a sterile Tegaderm dressing was applied over the catheter with careful attention to sterility. Patient tolerated procedure well. No immediate complications were met. Post procedure x-ray was completed, placement was appropriate and no pneumoth orax was noted. Images obtained are saved for permanent record Procedural Ultrasound Guidance: Procedure Date: 12/23/2020 Indication: Central venous catheter insertion Attending: Dr. Tom Ray Provider: IAM Georges Artery AND Vein visualized: Yes Compressible Vein: Yes Guidewire or Short Catheter seen in vein prior to dilation: Yes Line confirmed in Vein with ultrasound: Yes Images obtained are saved for permanent record. Coding
--- NOTE | 2020-12-23 21:29 | Critical Care Consultation ---
Date of Consultation December 23, 2020 Assessment & Plan (1) Alcohol withdrawal seizure: Reason Critically Ill: 35-year-old male presents to the ICU with delirium tremens and seizure earlier today with alcohol withdrawal and hyponatremia. Neuro - Seizure/alcohol withdrawalpatient with known history of alcohol withdrawal and previous admission to ICU due to refractory delirium tremens -Patient had witnessed seizure like activity at work, was found to have undetectable EtOH. Reports he last drank at 4 AM this morning -Seizure most likely related to alcohol withdrawal, cannot rule out hyponatremia as possible cause as well. See treatment for hyponatremia below -Continue with seizure precautions -History of narcotic abuse as well and currently on Suboxone. Tox screen negative -No acute intracranial abnormality on CT head - Patient unresponsive to Haldol and lorazepam. Loaded with phenobarbital -Monitor ALLEY scale -Continue thiamine, folate, multivitamin -Consider consult to psych once stable Cardiac - Tachycardiaheart rate 130s in the setting of alcohol withdrawal. -Consider beta-asa if unimproved following treatment of DTs -Continuous monitor on telemetry Respiratory - No history of pulmonary disease and currently maintaining oxygen saturation without respiratory distress on room air Continuous monitoring on pulse ox and monitor end-tidal CO2 GI - Transaminitismild transaminitis in the setting of alcohol abuse -Patient had liver ultrasound 10/02 that showed hepatomegaly and severe hepatic steatosis -Likely related to fatty liver, abdominal exam is benign -Trend LFTs for now and consider repeat ultrasound if worsen RENAL/LYTES - AKIinitial creatinine 2.62, repeat 2.07. Appears to be improving with fluid resuscitation -Continue with IV fluid -Avoid nephrotoxins and renally adjust medication -Maintain MAP greater than 65 -Monitor Hyponatremiahypoosmolar hyponatremia with initial sodium 118, repeat 120 -Continue with IV NSS, trend BMP every 6 hours. Goal correction 6 to 8 mmol/L per 24 hours -Appears to be improving, will consider consult nephrology. Consider DDAVP if overcorrection - Strict I's and O's ENDO - No history of diabetes or thyroid disease HEME - Thrombocytopeniaplatelet count 126, likely secondary to bone marrow suppression due to alcohol abuse -Monitor routine CBCs ID - No indication for infectious process at this time LINES/IV ACCESS - Central venous catheter right IJ DVT PROPHYLAXIS - Ludin Perez I have personally spent 45 minutes of critical care time in the direct management of this patient. This is a life/limb threatening event. This includes time spent evaluating patient, direct bedside care, chart review, placing orders, interpretation of diagnostic studies, discussion with consultants, patient, and family members, as well as other required patient management activ ities. This time is exclusive of all separately billable procedures, and teaching time and separate from and in addition to any other critical care service time. Thank you for allowing us to participate in the care of this patient. Please refer to my attending physician's documentation for any further recommendations. (2) Hyponatremia: (3) BESSIE (acute kidney injury): (4) Alcohol withdrawal: (5) Metabolic encephalopathy: (6) Engages in vaping: (7) Delirium tremens: History of Present Illness Attending Physician: Andressa Lai MD History of Present Illness Patient is a 35-year-old male with past medical history of alcohol abuse, narcotic abuse (on Suboxone), hypertension, obesity, and alcohol withdrawal who presents to the emergency department after a witnessed seizure-like episode at work that lasted approximately 10 minutes. Patient stated that he last drank a fireball at work around 4 AM but stopped drinking because his boss caught him. On arrival to the ER the patient's EtOH was undetectable. He was tachycardic and was found to be hyponatremic with a sodium of 118. Peripheral IVs were initially established in the ED, but the patient removed them and they were unable to obtain additional status. Patient was transferred to the ICU and pe ripheral access was again attempted without success. Patient showing symptoms of delirium tremens and now requiring restraints and CVL was inserted. He was initially given IM Haldol and Ativan without appropriate response and is now being administered phenobarbital. Repeat labs pending. Will manage in ICU for the time being. On exam patient is confused and agitated with severe tremors. He is restless and unable to sit still. He denies headache, dizziness, congestion, sore throat, fevers, shortness of breath, chest pain, palpitations, abdominal pain, nausea vomiting or diarrhea. Allergies Allergy/AdvReac Type Severity Reaction Status Date / Time No Known Allergies Allergy Unverified 12/23/20 15:05 Home Medications Medication Instructions Recorded Confirmed Type buprenorphine 8 mg-naloxone 2 mg 1 tab SUBLINGUAL BID 09/04/20 12/23/20 History sublingual tablet lisinopril 5 mg tablet 5 mg PO QAM 12/23/20 12/23/20 History Patient History Medical History Acute hyperglycemia Acute hypokalemia Acute hyponatremia Acute renal failure Bilateral pneumonia Surgical History No pertinent past surgical history Family History Other No pertinent family history Social History Smoking Status: Current every day smoker Tobacco Type: Cigarettes Second Hand Exposure: Yes; Do You Dip or Chew Tobacco: No; Tobacco Cessation Education Requested by Patient: No (Patient asked for a cigarette) Hx Alcohol Use: Yes Alcohol type: hard liquor Hx Substance Use: No Preferred Language: Frisian Communication Ability: Effective 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 Service 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 Required: No Beliefs That Will Affect Care: None Current Living Situation: Alone Other Information That Helps Us Care for You: No Feels Safe at Home: Yes Safety Concerns: Feels Safe At This Time Assistive Devices: None Review of Systems Review of Systems: All systems reviewed & are unremarkable except as noted in HPI & below Physical Exam Constitutional: + obese and + disheveled; + uncooperative Eyes: PERRL, conjunctivae normal, anicteric sclerae ENMT: external ear and nose normal, oropharynx normal Neck: trachea midline, no thyromegaly Respiratory: normal respiratory effort, lungs clear to auscultation Cardiovascular: Rate/Rhythm: regular rhythm and + tachycardic Heart Sounds: normal S1 and normal S2 Vessels: no JVD Extremities: normal capillary refill; no edema Gastrointestinal (Abdomen): normal bowel sounds, soft, nontender, no hepatosplenomegaly Musculoskeletal: no cyanosis or clubbing, extremities motor strength 5/5 Skin: no rashes, warm and dry Neurologic: PERRL, EOMI, accommodation nl, no face palsy, no dysarthria Psychiatric: Orientation: oriented to person; + not oriented to place and + not oriented to time Eye Contact: + poor eye contact Motor Behavior: + tremor Affect: + anxious affect Thought Process: + looseness of associatio ns Thought Content: + delusions Results & Data Results & Data ([facility]) Vital Signs (Past 12 Hours) Vital Signs Temp Pulse Pulse Resp BP BP Pulse Ox 12/23/20 19:59 37.9 C H 133 H 28 H 153/93 H 99 12/23/20 19:13 141 H 20 125/82 98 12/23/20 16:30 119 H 20 132/86 12/23/20 16:18 123 H 15 12/23/20 15:30 117 H 17 165/102 H 12/23/20 15:00 125 H 20 136/88 98 12/23/20 14:30 121 H 19 12/23/20 14:00 121 H 19 108/74 100 12/23/20 13:00 126 H 21 96/56 L 98 12/23/20 12:30 123 H 31 H 99 12/23/20 12:07 131 H 22 99 12/23/20 12:00 37.5 C 130 H 16 106/63 95 Coding Level of Care Code Critical Care 1st 30-74 mins Diagnoses Alcohol withdrawal seizure F10.239; R56.9 Complication of substance-induced condition: with unspecified complication Hyponatremia E87.1 BESSIE (acute kidney injury) N17.9 Alcohol withdrawal F10.239 Complication of substance-induced condition: with unspecified complication Metabolic encephalopathy G93.41 Engages in vaping Z72.89 Delirium tremens F10.231 (1) Alcohol withdrawal Complication of substance-induced condition: with unspecified complication Qualified Code(s): F10.239 - Alcohol dependence with withdrawal, unspecified (2) Alcohol withdrawal seizure Complication of substance-induced condition: with unspecified complication Qualified Code(s): F10.239 - Alcohol dependence with withdrawal, unspecified; R56.9 - Unspecified convulsions
--- NOTE | 2020-12-23 21:48 | XRay Report ---
XR chest 1V portable INDICATION: MN ^S/P CVC placement . TECHNIQUE: Single frontal radiograph of the chest was obtained. Comparison: Comparison is made to chest one view 12/23/2020 at 1318 hours FINDINGS: Interval placement of a right central venous catheter with the tip in the lower SVC. The cardiomedias tinal silhouette is normal. The lungs are clear. No evidence of pleural effusion or pneumothorax. IMPRESSION: Satisfactory position of a central venous catheter. ACT 112: Negative or not required by law. Electronically signed by: Giorgi Carlson M.D. 12/23/2020 9:47 PM
[2020-12-23] MEDS ORDERED: PHENobarbital sodium 130 MG/ML VIAL IV ONE ×2 (21:57)
[2020-12-23] MEDS: LORazepam 3 MG/6 ML VIAL IV PRN ×2 (22:15→23:46)
[2020-12-23] MEDS: ENOXAPARIN INJ 40 MG/0.4 ML SYR SQ SCH (22:22)
[2020-12-23] MEDS: NORMOSOL-R 1,000 ML IV SCH (22:29)
[2020-12-23] MEDS ORDERED: PHENobarbitaL sodium 130 MG in SYRINGE 0 ML IV ONE (23:00)
[2020-12-23] MEDS ORDERED: NICOTINE 14 MG/24 HR PATCH TD PRN (23:09)
[2020-12-23] MEDS: BUPRENORPHINE/NALOXONE 8/2 MG TAB SL SCH (23:13)
[2020-12-23] MEDS: POTASSIUM CHLORIDE / WTR 20 MEQ/100 ML PLCT IV SCH (23:55)
[2020-12-24 00:21] LABS: Potassium 3.8 mmol/L (3.5-5.1)
[2020-12-24 00:24] LABS: BUN Creatinine Ratio 7.8 (10-20); Calcium 8.8 mg/dl (8.5-10.1); Creatinine Clr Calc Pharmacy 66.6 ml/min; Est GFR (African American) 50.1 ml/min; Est GFR (Non-African American) 43.3 ml/min
[2020-12-24 00:29] LABS: Bilirubin Direct 2.2 mg/dl (0-0.2)
[2020-12-24 00:55] LABS: Potassium 3.8 mmol/L (3.5-5.1)
[2020-12-24] MEDS ORDERED: PHENobarbitaL sodium 130 MG in SYRINGE 0 ML IV ONE (01:30)
[2020-12-24] MEDS: POTASSIUM CHLORIDE / WTR 20 MEQ/100 ML PLCT IV SCH (01:54)
[2020-12-24] MEDS: METOPROLOL TARTRATE 1 MG/ML VIAL IV SCH ×3 (04:43→12:37)
[2020-12-24 06:06] LABS: Prothrombin Time 10.5 Seconds (9.0-12.0)
[2020-12-24] MEDS ORDERED: LORazepam 2 MG/4 ML VIAL ONE (06:19)
[2020-12-24 06:20] LABS: Albumin Level 2.8 gm/dl (3.4-5.0); BUN Creatinine Ratio 8.8 (10-20); Bilirubin Direct 1.9 mg/dl (0-0.2); Calcium 8.4 mg/dl (8.5-10.1); Creatinine Clr Calc Pharmacy 77.4 ml/min; Est GFR (African American) 60.1 ml/min; Est GFR (Non-African American) 51.9 ml/min; Potassium 3.4 mmol/L (3.5-5.1)
[2020-12-24 06:24] LABS: BUN Creatinine Ratio 8.8 (10-20); Calcium 8.3 mg/dl (8.5-10.1); Creatinine Clr Calc Pharmacy 78.8 ml/min; Est GFR (African American) 61.4 ml/min; Potassium 3.3 mmol/L (3.5-5.1)
[2020-12-24 06:36] LABS: Bilirubin,Total 2.8 mg/dl (0.2-1); Phosphorus 0.7 mg/dl (2.5-4.9); Total Protein 6.5 gm/dl (6.4-8.2)
[2020-12-24] MEDS ORDERED: DEXTROSE 5% 500 ML IV ONE (06:48)
[2020-12-24] MEDS ORDERED: LORazepam 3 MG/6 ML VIAL IV STA (06:51)
[2020-12-24] MEDS: NORMOSOL-R 1,000 ML IV SCH (07:23)
[2020-12-24] MEDS: THIAMINE HCL 200 MG in SODIUM CHLORIDE 0.9% 50 ML IV SCH (08:04)
[2020-12-24] MEDS: FOLIC ACID 1 MG TAB PO SCH (08:21)
[2020-12-24] MEDS: PANTOprazole 40 MG TAB PO SCH (08:21)
[2020-12-24] MEDS: BUPRENORPHINE/NALOXONE 8/2 MG TAB SL SCH ×2 (08:21→20:28)
[2020-12-24] MEDS: MULTIVITAMIN TAB PO SCH (08:21)
[2020-12-24 09:17] LABS: BUN Creatinine Ratio 9.4 (10-20); Calcium 8.6 mg/dl (8.5-10.1); Creatinine Clr Calc Pharmacy 83.9 ml/min; Est GFR (African American) 66.3 ml/min; Est GFR (Non-African American) 57.2 ml/min; Potassium 3.3 mmol/L (3.5-5.1)
--- NOTE | 2020-12-24 09:34 | Critical Care Progress Note ---
Date of Service December 24, 2020 Assessment & Plan (1) Alcohol withdrawal seizure: Plan: Reason Critically Ill: 35-year-old male presents to the ICU with delirium tremens and seizure earlier today with alcohol withdrawal and hyponatremia. Neuro - Seizure/alcohol withdrawalpatient with known history of alcohol withdrawal and previous admission to ICU due to refractory delirium tremens -Patient had witnessed seizure like activity at work, was found to have undet ectable EtOH. Reports he last drank at 4 AM yesterday 12/23 -Seizure most likely related to alcohol withdrawal, cannot rule out hyponatremia as possible cause as well. See treatment for hyponatremia below -Continue with seizure precautions -History of narcotic abuse as well and currently on Suboxone. Tox screen negative -No acute intracranial abnormality on CT head -Continue thiamine, folate, multivitamin Cardiac - Tachycardiaheart rate 130s in the setting of alcohol withdrawal. -Propranolol 10 mg 3 times daily Respiratory - Acute respiratory failure -Sonorous respirations in the setting of unclear trauma to tongue with significant lingual swelling -In the setting with poor mental status decision was made to intubate for patient safety Suspect lingual swelling secondary to local trauma GI - Transaminitismild transaminitis in the setting of alcohol abuse -Patient had liver ultrasound 10/02 that showed hepatomegaly and severe hepatic steatosis -Likely related to fatty liver, abdominal exam is benign RENAL/LYTES - AKIimproving -Continue with IV fluid -Avoid nephrotoxins and renally adjust medication -Maintain MAP greater than 65 -Monitor Hyponatremia: improving - Strict I's and O's ENDO - No history of diabetes or thyroid disease HEME - Thrombocytopeniaplatelet count 126, likely secondary to bone marrow suppression due to alcohol abuse -Monitor routine CBCs ID - No indication for infectious process at this time LINES/IV ACCESS - Central venous catheter right IJ DVT PROPHYLAXIS - SCDs, Lovenox (2) Hyponatremia: (3) BESSIE (acute kidney injury): (4) Alcohol withdrawal: (5) Metabolic encephalopathy: (6) Engages in vaping: (7) Delirium tremens: Admission and Anticipated Discharge Date Admission Date: December 23, 2020 Supervising Physician Co-Signing Physician Notes Patient remains critically ill Subjective No overnight events Physical Exam Physical Exam: General: somnolent. Follows one-step commands cannot follow two-step commands. Skin: Warm, dry, Head: Atraumatic Ears, nose, mouth and throat: airway patent tongue swollen secondary to maceration Tongue: No obvious laceration visualized bilateral sides have extensive maceration presumptive secondary to widespread dental caries and clenching during seizure Cardiovascular: Normal peripheral perfusion Respiratory: Tachypnea with sonorous respirations Gastrointestinal: Non distended : Circumcised male with Griffin present Musculoskeletal: No deformity Results & Data Results & Data ([facility]) Vital Signs (Past 12 Hours) Vital Signs Temp Pulse Pulse Resp BP BP Pulse Ox 12/24/20 09:00 38.2 C H 116 H 122/100 88 L 12/24/20 08:04 121 H 150/112 H 12/24/20 08:00 38.3 C H 121 H 90 12/24/20 07:00 120 H 97 12/24/20 06:00 131 H 93/63 L 95 12/24/20 05:30 112 H 99 12/24/20 05:00 113 H 97 12/24/20 04:30 121 H 97 12/24/20 04:00 135 H 112/73 98 12/24/20 03:30 133 H 12/24/20 03:00 131 H 132 H 30 H 148/100 H 97 12/24/20 02:30 115 H 95 12/24/20 02:00 146 H 171/88 H 91 12/24/20 01:30 146 H 96 12/24/20 01:00 37.9 C H 142 H 143 H 18 169/92 H 168/92 H 99 12/24/20 00:30 142 H 99 12/24/20 00:00 137 H 136 H 23 138/98 150/73 H 94 12/23/20 23:30 149 H 95 12/23/20 23:00 152 H 12/23/20 22:30 156 H 95 12/23/20 22:00 142 H 17 Laboratory Results 12/24/20 12/24/20 12/24/20 Range/Units Unknown 08:46 05:19 WBC (4.8-10.8) K/uL RBC (4.7-6.1) M/uL Hgb (14.0-18.0) g/dL Hct (42-52) % MCV (80-100) fL MCH (25-34) pg MCHC (32-36) g/dL RDW Std Deviation (36.4-46.3) fL RDW Coeff of Desiree (11.5-14.5) % Plt Count (130-400) K/uL MPV (7.4-10.4) fL Immature Gran % (Auto) % Neut % (Auto) % Lymph % (Auto) % [place] % (Auto) % Eos % (Auto) % Baso % (Auto) % Neut # (Auto) (1.4-6.5) K/uL Lymph # (Auto) (1.2-3.4) K/uL [place] # (Auto) (0.11-0.59) K/uL Eos # (Auto) (0-0.5) K/uL Baso # (Auto) (0-0.2) K/uL Immature Gran # (Auto) (0.00-0.02) K/uL Platelet Estimate (Normal) PT (9.0-12.0) Seconds INR (0.9-1.1) APTT (21.0-31.0) Seconds PTT Ratio Sodium 125 L 126 L (136-145) mmol/L Potassium 3.3 L 3.4 L (3.5-5.1) mmol/L Chloride 91 L 90 L (98-107) mmol/L Carbon Dioxide 28 29 (21-32) mmol/L Anion Gap 6.0 7.0 (3-11) BUN 15 15 (7-18) mg/dl Creatinine 1.54 H 1.67 H (0.6-1.4) mg/dl Est Cr Clr Drug Dosing 83.9 77.4 ml/min Est GFR ( Amer) 66.3 60.1 ml/min Est GFR (Non-Af Amer) 57.2 51.9 ml/min BUN/Creatinine Ratio 9.4 L 8.8 L (10-20) Glucose 111 H 102 H (70-99) mg/dl Osmolality (280-300) mOsm/kg Calcium 8.6 8.4 L (8.5-10.1) mg/dl Phosphorus 0.7 L* (2.5-4.9) mg/dl Magnesium 2.0 (1.8-2.4) mg/dl Total Bilirubin 2.8 H (0.2-1) mg/dl Direct Bilirubin 1.9 H (0-0.2) mg/dl AST 217 H (15-37) U/L ALT 80 H (12-78) U/L Alkaline Phosphatase 134 H (45-117) U/L Total Protein 6.5 D (6.4-8.2) gm/dl Albumin 2.8 L (3.4-5.0) gm/dl Globulin (2.5-4.0) gm/dl Albumin/Globulin Ratio (0.9-2) Lipase (73-393) U/L Specimen Hemolysis Urine Color Urine Appearance (Clear) Urine pH (4.5-7.5) Ur Specific [place] (1.000-1.030) Urine Protein (Negative) Urine Glucose (UA) (Negative) Urine Ketones (Negative) Urine Blood (Negative) Urine Nitrite (Negative) Urine Bilirubin (Negative) Urine Urobilinogen (Negative) Ur Leukocyte Esterase (Negative) Urine WBC (Auto) (0-5) /hpf Urine RBC (Auto) (0-4) /hpf U Hyaline Cast (Auto) (0-5) /lpf U Epithel Cells (Auto) (0-5) /lpf Urine Bacteria (Auto) (Negative) Urine Osmolality (500-800) mOsm/kg Ur Random Creatinine mg/dl Ur Random Sodium mmol/L Nasal Screen MRSA (PCR) Negative (Negative) Urine Opiates Screen (Neg) Ur Methadone, Qual (Neg) Acetaminophen Urine Barbiturates (Neg) Ur Phencyclidine (PCP) (Neg) U Amphetamin/Meth Scrn (Neg) MDMA (Ecstasy) Screen (Neg) U Benzodiazepines Scrn (Neg) Ur Cocaine Metabolite (Neg) U Marijuana (THC) Screen (Neg) Ethyl Alcohol mg/dL (0-3) mg/dl SARS-CoV-2 (PCR) (Negative) Miscellaneous Test 12/24/20 12/24/20 12/23/20 Range/Units 05:19 05:19 Unknown WBC (4.8-10.8) K/uL RBC (4.7-6.1) M/uL Hgb (14.0-18.0) g/dL Hct (42-52) % MCV (80-100) fL MCH (25-34) pg MCHC (32-36) g/dL RDW Std Deviation (36.4-46.3) fL RDW Coeff of Desiree (11.5-14.5) % Plt Count (130-400) K/uL MPV (7.4-10.4) fL Immature Gran % (Auto) % Neut % (Auto) % Lymph % (Auto) % [place] % (Auto) % Eos % (Auto) % Baso % (Auto) % Neut # (Auto) (1.4-6.5) K/uL Lymph # (Auto) (1.2-3.4) K/uL [place] # (Auto) (0.11-0.59) K/uL Eos # (Auto) (0-0.5) K/uL Baso # (Auto) (0-0.2) K/uL Immature Gran # (Auto) (0.00-0.02) K/uL Platelet Estimate (Normal) PT 10.5 (9.0-12.0) Seconds INR 1.0 (0.9-1.1) APTT (21.0-31.0) Seconds PTT Ratio Sodium 125 L (136-145) mmol/L Potassium 3.3 L (3.5-5.1) mmol/L Chloride 89 L (98-107) mmol/L Carbon Dioxide 29 (21-32) mmol/L Anion Gap 7.0 (3-11) BUN 14 (7-18) mg/dl Creatinine 1.64 H D (0.6-1.4) mg/dl Est Cr Clr Drug Dosing 78.8 ml/min Est GFR ( Amer) 61.4 ml/min Est GFR (Non-Af Amer) 53.0 ml/min BUN/Creatinine Ratio 8.8 L (10-20) Glucose 107 H (70-99) mg/dl Osmolality (280-300) mOsm/kg Calcium 8.3 L (8.5-10.1) mg/dl Phosphorus (2.5-4.9) mg/dl Magnesium (1.8-2.4) mg/dl Total Bilirubin (0.2-1) mg/dl Direct Bilirubin (0-0.2) mg/dl AST (15-37) U/L ALT (12-78) U/L Alkaline Phosphatase (45-117) U/L Total Protein (6.4-8.2) gm/dl Albumin (3.4-5.0) gm/dl Globulin (2.5-4.0) gm/dl Albumin/Globulin Ratio (0.9-2) Lipase (73-393) U/L Specimen Hemolysis Urine Color Urine Appearance (Clear) Urine pH (4.5-7.5) Ur Specific [place] (1.000-1.030) Urine Protein (Negative) Urine Glucose (UA) (Negative) Urine Ketones (Negative) Urine Blood (Negative) Urine Nitrite (Negative) Urine Bilirubin (Negative) Urine Urobilinogen (Negative) Ur Leukocyte Esterase (Negative) Urine WBC (Auto) (0-5) /hpf Urine RBC (Auto) (0-4) /hpf U Hyaline Cast (Auto) (0-5) /lpf U Epithel Cells (Auto) (0-5) /lpf Urine Bacteria (Auto) (Negative) Urine Osmolality (500-800) mOsm/kg Ur Random Creatinine mg/dl Ur Random Sodium mmol/L Nasal Screen MRSA (PCR) (Negative) Urine Opiates Screen (Neg) Ur Methadone, Qual (Neg) Acetaminophen Urine Barbiturates (Neg) Ur Phencyclidine (PCP) (Neg) U Amphetamin/Meth Scrn (Neg) MDMA (Ecstasy) Screen (Neg) U Benzodiazepines Scrn (Neg) Ur Cocaine Metabolite (Neg) U Marijuana (THC) Screen (Neg) Ethyl Alcohol mg/dL (0-3) mg/dl SARS-CoV-2 (PCR) (Negative) Miscellaneous Test Pending 12/23/20 12/23/20 12/23/20 Range/Units Unknown 23:44 23:44 WBC (4.8-10.8) K/uL RBC (4.7-6.1) M/uL Hgb (14.0-18.0) g/dL Hct (42-52) % MCV (80-100) fL MCH (25-34) pg MCHC (32-36) g/dL RDW Std Deviation (36.4-46.3) fL RDW Coeff of Desiree (11.5-14.5) % Plt Count (130-400) K/uL MPV (7.4-10.4) fL Immature Gran % (Auto) % Neut % (Auto) % Lymph % (Auto) % [place] % (Auto) % Eos % (Auto) % Baso % (Auto) % Neut # (Auto) (1.4-6.5) K/uL Lymph # (Auto) (1.2-3.4) K/uL [place] # (Auto) (0.11-0.59) K/uL Eos # (Auto) (0-0.5) K/uL Baso # (Auto) (0-0.2) K/uL Immature Gran # (Auto) (0.00-0.02) K/uL Platelet Estimate (Normal) PT (9.0-12.0) Seconds INR (0.9-1.1) APTT (21.0-31.0) Seconds PTT Ratio Sodium 122 L (136-145) mmol/L Potassium 3.8 3.8 D (3.5-5.1) mmol/L Chloride 86 L (98-107) mmol/L Carbon Dioxide 28 (21-32) mmol/L Anion Gap 8.0 (3-11) BUN 15 (7-18) mg/dl Creatinine 1.94 H (0.6-1.4) mg/dl Est Cr Clr Drug Dosing 66.6 ml/min Est GFR ( Amer) 50.1 ml/min Est GFR (Non-Af Amer) 43.3 ml/min BUN/Creatinine Ratio 7.8 L (10-20) Glucose 115 H (70-99) mg/dl Osmolality (280-300) mOsm/kg Calcium 8.8 (8.5-10.1) mg/dl Phosphorus (2.5-4.9) mg/dl Magnesium (1.8-2.4) mg/dl Total Bilirubin (0.2-1) mg/dl Direct Bilirubin 2.2 H (0-0.2) mg/dl AST (15-37) U/L ALT (12-78) U/L Alkaline Phosphatase (45-117) U/L Total Protein (6.4-8.2) gm/dl Albumin (3.4-5.0) gm/dl Globulin (2.5-4.0) gm/dl Albumin/Globulin Ratio (0.9-2) Lipase (73-393) U/L Specimen Hemolysis Urine Color Urine Appearance (Clear) Urine pH (4.5-7.5) Ur Specific [place] (1.000-1.030) Urine Protein (Negative) Urine Glucose (UA) (Negative) Urine Ketones (Negative) Urine Blood (Negative) Urine Nitrite (Negative) Urine Bilirubin (Negative) Urine Urobilinogen (Negative) Ur Leukocyte Esterase (Negative) Urine WBC (Auto) (0-5) /hpf Urine RBC (Auto) (0-4) /hpf U Hyaline Cast (Auto) (0-5) /lpf U Epithel Cells (Auto) (0-5) /lpf Urine Bacteria (Auto) (Negative) Urine Osmolality (500-800) mOsm/kg Ur Random Creatinine mg/dl Ur Random Sodium mmol/L Nasal Screen MRSA (PCR) (Negative) Urine Opiates Screen (Neg) Ur Methadone, Qual (Neg) Acetaminophen Cancelled Urine Barbiturates (Neg) Ur Phencyclidine (PCP) (Neg) U Amphetamin/Meth Scrn (Neg) MDMA (Ecstasy) Screen (Neg) U Benzodiazepines Scrn (Neg) Ur Cocaine Metabolite (Neg) U Marijuana (THC) Screen (Neg) Ethyl Alcohol mg/dL (0-3) mg/dl SARS-CoV-2 (PCR) (Negative) Miscellaneous Test 12/23/20 12/23/20 12/23/20 Range/Units 20:28 20:28 16:10 WBC (4.8-10.8) K/uL RBC (4.7-6.1) M/uL Hgb (14.0-18.0) g/dL Hct (42-52) % MCV (80-100) fL MCH (25-34) pg MCHC (32-36) g/dL RDW Std Deviation (36.4-46.3) fL RDW Coeff of Desiree (11.5-14.5) % Plt Count (130-400) K/uL MPV (7.4-10.4) fL Immature Gran % (Auto) % Neut % (Auto) % Lymph % (Auto) % [place] % (Auto) % Eos % (Auto) % Baso % (Auto) % Neut # (Auto) (1.4-6.5) K/uL Lymph # (Auto) (1.2-3.4) K/uL [place] # (Auto) (0.11-0.59) K/uL Eos # (Auto) (0-0.5) K/uL Baso # (Auto) (0-0.2) K/uL Immature Gran # (Auto) (0.00-0.02) K/uL Platelet Estimate (Normal) PT (9.0-12.0) Seconds INR (0.9-1.1) APTT (21.0-31.0) Seconds PTT Ratio Sodium 120 L (136-145) mmol/L Potassium (3.5-5.1) mmol/L Chloride 83 L (98-107) mmol/L Carbon Dioxide 28 (21-32) mmol/L Anion Gap 9.0 (3-11) BUN 16 (7-18) mg/dl Creatinine 2.07 H D (0.6-1.4) mg/dl Est Cr Clr Drug Dosing 62.4 ml/min Est GFR ( Amer) 46.4 ml/min Est GFR (Non-Af Amer) 40.0 ml/min BUN/Creatinine Ratio 7.8 L (10-20) Glucose 103 H (70-99) mg/dl Osmolality 267 L (280-300) mOsm/kg Calcium 8.9 (8.5-10.1) mg/dl Phosphorus (2.5-4.9) mg/dl Magnesium (1.8-2.4) mg/dl Total Bilirubin (0.2-1) mg/dl Direct Bilirubin (0-0.2) mg/dl AST (15-37) U/L ALT (12-78) U/L Alkaline Phosphatase (45-117) U/L Total Protein (6.4-8.2) gm/dl Albumin (3.4-5.0) gm/dl Globulin (2.5-4.0) gm/dl Albumin/Globulin Ratio (0.9-2) Lipase (73-393) U/L Specimen Hemolysis Urine Color Urine Appearance (Clear) Urine pH (4.5-7.5) Ur Specific [place] (1.000-1.030) Urine Protein (Negative) Urine Glucose (UA) (Negative) Urine Ketones (Negative) Urine Blood (Negative) Urine Nitrite (Negative) Urine Bilirubin (Negative) Urine Urobilinogen (Negative) Ur Leukocyte Esterase (Negative) Urine WBC (Auto) (0-5) /hpf Urine RBC (Auto) (0-4) /hpf U Hyaline Cast (Auto) (0-5) /lpf U Epithel Cells (Auto) (0-5) /lpf Urine Bacteria (Auto) (Negative) Urine Osmolality (500-800) mOsm/kg Ur Random Creatinine 48.1 mg/dl Ur Random Sodium 35 mmol/L Nasal Screen MRSA (PCR) (Negative) Urine Opiates Screen (Neg) Ur Methadone, Qual (Neg) Acetaminophen Urine Barbiturates (Neg) Ur Phencyclidine (PCP) (Neg) U Amphetamin/Meth Scrn (Neg) MDMA (Ecstasy) Screen (Neg) U Benzodiazepines Scrn (Neg) Ur Cocaine Metabolite (Neg) U Marijuana (THC) Screen (Neg) Ethyl Alcohol mg/dL (0-3) mg/dl SARS-CoV-2 (PCR) (Negative) Miscellaneous Test 12/23/20 12/23/20 12/23/20 Range/Units 16:10 16:10 16:10 WBC (4.8-10.8) K/uL RBC (4.7-6.1) M/uL Hgb (14.0-18.0) g/dL Hct (42-52) % MCV (80-100) fL MCH (25-34) pg MCHC (32-36) g/dL RDW Std Deviation (36.4-46.3) fL RDW Coeff of Desiree (11.5-14.5) % Plt Count (130-400) K/uL MPV (7.4-10.4) fL Immature Gran % (Auto) % Neut % (Auto) % Lymph % (Auto) % [place] % (Auto) % Eos % (Auto) % Baso % (Auto) % Neut # (Auto) (1.4-6.5) K/uL Lymph # (Auto) (1.2-3.4) K/uL [place] # (Auto) (0.11-0.59) K/uL Eos # (Auto) (0-0.5) K/uL Baso # (Auto) (0-0.2) K/uL Immature Gran # (Auto) (0.00-0.02) K/uL Platelet Estimate (Normal) PT (9.0-12.0) Seconds INR (0.9-1.1) APTT (21.0-31.0) Seconds PTT Ratio Sodium (136-145) mmol/L Potassium (3.5-5.1) mmol/L Chloride (98-107) mmol/L Carbon Dioxide (21-32) mmol/L Anion Gap (3-11) BUN (7-18) mg/dl Creatinine (0.6-1.4) mg/dl Est Cr Clr Drug Dosing ml/min Est GFR ( Amer) ml/min Est GFR (Non-Af Amer) ml/min BUN/Creatinine Ratio (10-20) Glucose (70-99) mg/dl Osmolality (280-300) mOsm/kg Calcium (8.5-10.1) mg/dl Phosphorus (2.5-4.9) mg/dl Magnesium (1.8-2.4) mg/dl Total Bilirubin (0.2-1) mg/dl Direct Bilirubin (0-0.2) mg/dl AST (15-37) U/L ALT (12-78) U/L Alkaline Phosphatase (45-117) U/L Total Protein (6.4-8.2) gm/dl Albumin (3.4-5.0) gm/dl Globulin (2.5-4.0) gm/dl Albumin/Globulin Ratio (0.9-2) Lipase (73-393) U/L Specimen Hemolysis Urine Color Yellow Urine Appearance Cloudy A (Clear) Urine pH 6.0 (4.5-7.5) Ur Specific [place] 1.009 (1.000-1.030) Urine Protein 1+ H (Negative) Urine Glucose (UA) 1+ H (Negative) Urine Ketones Negative (Negative) Urine Blood 1+ H (Negative) Urine Nitrite Negative (Negative) Urine Bilirubin Negative (Negative) Urine Urobilinogen Negative (Negative) Ur Leukocyte Esterase Negative (Negative) Urine WBC (Auto) 5-10 H (0-5) /hpf Urine RBC (Auto) 0-4 (0-4) /hpf U Hyaline Cast (Auto) 5-10 H (0-5) /lpf U Epithel Cells (Auto) 5-10 H (0-5) /lpf Urine Bacteria (Auto) Negative (Negative) Urine Osmolality 211 L (500-800) mOsm/kg Ur Random Creatinine mg/dl Ur Random Sodium mmol/L Nasal Screen MRSA (PCR) (Negative) Urine Opiates Screen Neg (Neg) Ur Methadone, Qual Neg (Neg) Acetaminophen Urine Barbiturates Neg (Neg) Ur Phencyclidine (PCP) Neg (Neg) U Amphetamin/Meth Scrn Neg (Neg) MDMA (Ecstasy) Screen Neg (Neg) U Benzodiazepines Scrn Neg (Neg) Ur Cocaine Metabolite Neg (Neg) U Marijuana (THC) Screen Neg (Neg) Ethyl Alcohol mg/dL (0-3) mg/dl SARS-CoV-2 (PCR) (Negative) Miscellaneous Test 12/23/20 12/23/20 12/23/20 Range/Units 13:01 12:56 12:56 WBC 8.14 (4.8-10.8) K/uL RBC 4.49 L (4.7-6.1) M/uL Hgb 14.5 (14.0-18.0) g/dL Hct 41.5 L (42-52) % MCV 92.4 (80-100) fL MCH 32.3 (25-34) pg MCHC 34.9 (32-36) g/dL RDW Std Deviation 42.6 (36.4-46.3) fL RDW Coeff of Desiree 12.7 (11.5-14.5) % Plt Count 126 L (130-400) K/uL MPV 13.0 H (7.4-10.4) fL Immature Gran % (Auto) 0.7 % Neut % (Auto) 76.9 % Lymph % (Auto) 12.9 % [place] % (Auto) 8.6 % Eos % (Auto) 0.7 % Baso % (Auto) 0.2 % Neut # (Auto) 6.25 (1.4-6.5) K/uL Lymph # (Auto) 1.05 L (1.2-3.4) K/uL [place] # (Auto) 0.70 H (0.11-0.59) K/uL Eos # (Auto) 0.06 (0-0.5) K/uL Baso # (Auto) 0.02 (0-0.2) K/uL Immature Gran # (Auto) 0.06 H (0.00-0.02) K/uL Platelet Estimate Decreased L (Normal) PT (9.0-12.0) Seconds INR (0.9-1.1) APTT (21.0-31.0) Seconds PTT Ratio Sodium 118 L* (136-145) mmol/L Potassium 3.1 L (3.5-5.1) mmol/L Chloride 76 L (98-107) mmol/L Carbon Dioxide 30 (21-32) mmol/L Anion Gap 12.0 H (3-11) BUN 15 (7-18) mg/dl Creatinine 2.62 H (0.6-1.4) mg/dl Est Cr Clr Drug Dosing 42.8 ml/min Est GFR ( Amer) 34.9 ml/min Est GFR (Non-Af Amer) 30.1 ml/min BUN/Creatinine Ratio 5.8 L (10-20) Glucose 142 H (70-99) mg/dl Osmolality (280-300) mOsm/kg Calcium 10.2 H (8.5-10.1) mg/dl Phosphorus (2.5-4.9) mg/dl Magnesium (1.8-2.4) mg/dl Total Bilirubin 3.4 H (0.2-1) mg/dl Direct Bilirubin (0-0.2) mg/dl AST 408 H (15-37) U/L ALT 121 H (12-78) U/L Alkaline Phosphatase 191 H (45-117) U/L Total Protein 8.2 (6.4-8.2) gm/dl Albumin 3.5 (3.4-5.0) gm/dl Globulin 4.7 H (2.5-4.0) gm/dl Albumin/Globulin Ratio 0.7 L (0.9-2) Lipase 189 (73-393) U/L Specimen Hemolysis Urine Color Urine Appearance (Clear) Urine pH (4.5-7.5) Ur Specific [place] (1.000-1.030) Urine Protein (Negative) Urine Glucose (UA) (Negative) Urine Ketones (Negative) Urine Blood (Negative) Urine Nitrite (Negative) Urine Bilirubin (Negative) Urine Urobilinogen (Negative) Ur Leukocyte Esterase (Negative) Urine WBC (Auto) (0-5) /hpf Urine RBC (Auto) (0-4) /hpf U Hyaline Cast (Auto) (0-5) /lpf U Epithel Cells (Auto) (0-5) /lpf Urine Bacteria (Auto) (Negative) Urine Osmolality (500-800) mOsm/kg Ur Random Creatinine mg/dl Ur Random Sodium mmol/L Nasal Screen MRSA (PCR) (Negative) Urine Opiates Screen (Neg) Ur Methadone, Qual (Neg) Acetaminophen Urine Barbiturates (Neg) Ur Phencyclidine (PCP) (Neg) U Amphetamin/Meth Scrn (Neg) MDMA (Ecstasy) Screen (Neg) U Benzodiazepines Scrn (Neg) Ur Cocaine Metabolite (Neg) U Marijuana (THC) Screen (Neg) Ethyl Alcohol mg/dL (0-3) mg/dl SARS-CoV-2 (PCR) NEGATIVE (Negative) Miscellaneous Test 12/23/20 12/23/20 Range/Units 12:56 12:56 WBC (4.8-10.8) K/uL RBC (4.7-6.1) M/uL Hgb (14.0-18.0) g/dL Hct (42-52) % MCV (80-100) fL MCH (25-34) pg MCHC (32-36) g/dL RDW Std Deviation (36.4-46.3) fL RDW Coeff of Desiree (11.5-14.5) % Plt Count (130-400) K/uL MPV (7.4-10.4) fL Immature Gran % (Auto) % Neut % (Auto) % Lymph % (Auto) % [place] % (Auto) % Eos % (Auto) % Baso % (Auto) % Neut # (Auto) (1.4-6.5) K/uL Lymph # (Auto) (1.2-3.4) K/uL [place] # (Auto) (0.11-0.59) K/uL Eos # (Auto) (0-0.5) K/uL Baso # (Auto) (0-0.2) K/uL Immature Gran # (Auto) (0.00-0.02) K/uL Platelet Estimate (Normal) PT 10.8 (9.0-12.0) Seconds INR 1.1 (0.9-1.1) APTT 21.8 (21.0-31.0) Seconds PTT Ratio 0.8 Sodium (136-145) mmol/L Potassium (3.5-5.1) mmol/L Chloride (98-107) mmol/L Carbon Dioxide (21-32) mmol/L Anion Gap (3-11) BUN (7-18) mg/dl Creatinine (0.6-1.4) mg/dl Est Cr Clr Drug Dosing ml/min Est GFR ( Amer) ml/min Est GFR (Non-Af Amer) ml/min BUN/Creatinine Ratio (10-20) Glucose (70-99) mg/dl Osmolality (280-300) mOsm/kg Calcium (8.5-10.1) mg/dl Phosphorus (2.5-4.9) mg/dl Magnesium (1.8-2.4) mg/dl Total Bilirubin (0.2-1) mg/dl Direct Bilirubin (0-0.2) mg/dl AST (15-37) U/L ALT (12-78) U/L Alkaline Phosphatase (45-117) U/L Total Protein (6.4-8.2) gm/dl Albumin (3.4-5.0) gm/dl Globulin (2.5-4.0) gm/dl Albumin/Globulin Ratio (0.9-2) Lipase (73-393) U/L Specimen Hemolysis Urine Color Urine Appearance (Clear) Urine pH (4.5-7.5) Ur Specific [place] (1.000-1.030) Urine Protein (Negative) Urine Glucose (UA) (Negative) Urine Ketones (Negative) Urine Blood (Negative) Urine Nitrite (Negative) Urine Bilirubin (Negative) Urine Urobilinogen (Negative) Ur Leukocyte Esterase (Negative) Urine WBC (Auto) (0-5) /hpf Urine RBC (Auto) (0-4) /hpf U Hyaline Cast (Auto) (0-5) /lpf U Epithel Cells (Auto) (0-5) /lpf Urine Bacteria (Auto) (Negative) Urine Osmolality (500-800) mOsm/kg Ur Random Creatinine mg/dl Ur Random Sodium mmol/L Nasal Screen MRSA (PCR) (Negative) Urine Opiates Screen (Neg) Ur Methadone, Qual (Neg) Acetaminophen Urine Barbiturates (Neg) Ur Phencyclidine (PCP) (Neg) U Amphetamin/Meth Scrn (Neg) MDMA (Ecstasy) Screen (Neg) U Benzodiazepines Scrn (Neg) Ur Cocaine Metabolite (Neg) U Marijuana (THC) Screen (Neg) Ethyl Alcohol mg/dL < 3.0 (0-3) mg/dl SARS-CoV-2 (PCR) (Negative) Miscellaneous Test Coding Level of Care Code Critical Care 1st 30-74 mins Diagnoses Alcohol withdrawal seizure F10.239; R56.9 Complication of substance-induced condition: with unspecified complication Hyponatremia E87.1 BESSIE (acute kidney injury) N17.9 Alcohol withdrawal F10.239 Complication of substance-induced condition: with unspecified complication Metabolic encephalopathy G93.41 Engages in vaping Z72.89 Delirium tremens F10.231 Time Spent (min) 50 (1) Alcohol withdrawal Complication of substance-induced condition: with unspecified complication Qualified Code(s): F10.239 - Alcohol dependence with withdrawal, unspecified (2) Alcohol withdrawal seizure Complication of substance-induced condition: with unspecified complication Qualified Code(s): F10.239 - Alcohol dependence with withdrawal, unspecified; R56.9 - Unspecified convulsions
[2020-12-24] MEDS ORDERED: PHENobarbital sodium 130 MG/ML VIAL IV PRN (11:30)
--- NOTE | 2020-12-24 11:52 | Electrocardiogram Report ---
Test Reason : Blood Pressure : / mmHG Vent. Rate : 129 BPM Atrial Rate : 129 BPM P-R Int : 142 ms QRS Dur : 090 ms QT Int : 314 ms P-R-T Axes : 044 083 050 degrees QTc Int : 460 ms Sinus tachycardia Left atrial enlargement Poor R wave progression, consider anterior LA vs. lead placement vs. LVH Abnormal ECG When compared with ECG of 11-OCT-2020 10:55, No significant change was found Confirmed by Felipe Reyna ([id number]) on 12/24/2020 11:51:55 AM Referred By: REFERRED SELF Confirmed By:Felipe Reyna
[2020-12-24] MEDS ORDERED: ACETAMINOPHEN 1,000 MG/100 ML VIAL IV STA (12:18)
[2020-12-24] MEDS ORDERED: ACETAMINOPHEN 1000 MG/100 ML IV IV ONE (12:33)
[2020-12-24] MEDS ORDERED: POTASSIUM PHOS 3 MMOL/1 ML INFUSION IV STA (12:46)
[2020-12-24] MEDS ORDERED: RAPID SEQUENCE INDUCTION BAG ONE (13:01)
[2020-12-24] MEDS ORDERED: MIDAZOLAM HCL 125MG/250ML D5W ONE (13:14)
[2020-12-24] MEDS ORDERED: fentaNYL citrate 100 MCG/2 ML VIAL IV PRN (13:15)
[2020-12-24] MEDS ORDERED: STAT IV Infusion **Titration per Protocol STA (13:15)
--- NOTE | 2020-12-24 13:25 | Procedure Note ---
Procedure Note Date of Service December 24, 2020 Note Procedure Date: Noted above Procedure: Endotracheal intubation Pre-procedure Diagnosis: Impending respiratory failure, upper airway obstruction Post-procedure Diagnosis: same as above Prior to Procedure: Informed Consent: emergent Attending Staff: Lobo Ray DO The identity of the patient was confirmed and a bedside time out was performed. Description of Procedure: Patient was evaluated and required intubation for impending respiratory failure. The patient was prepared in the usual fashion. A video laryngoscope was used. A 8 mm inner diameter endotrachial tube was placed endotracheally to 26 cm at the teeth. A grade 2 view was obtained. The endotracheal tube was noted to pass through the vocal cords. Chest rise was bilateral. Bilateral breath sounds were heard without air sounds in the abdomen. Mist was noted in the endotracheal tube. End-tidal CO2 measurement was positive. Chest x-ray shows proper endotracheal tube placement. Complications: None Findings: Not applicable Specimens: Not applicable Estimated blood loss: Zero Coding CPT Codes Resuscitation - Resuscitation: 33208 Endotracheal Intubation, emergency ([id number]) [facility] [place] Codes (Charges) Resuscitation Resuscitation: 88528 Endotracheal Intubation, emergency
--- NOTE | 2020-12-24 13:43 | XRay Report ---
SINGLE VIEW CHEST CLINICAL HISTORY: Respiratory failure. Intubation. FINDINGS: An AP, portable, upright chest radiograph is compared to study dated 12/23/2020 and correlat ed with chest CT dated 10/01/2020. A right internal jugular central venous catheter is unchanged in po sition. An endotracheal tube has been placed. The tip projects 3.5 cm above the natalya. An enteric tu be has been placed. This extends below the diaphragm and the tip is not visualized. The cardiomediast inal silhouette is unremarkable. There is elevation of the right hemidiaphragm. Bibasilar opacities h ave modestly increased from previous. No large pleural effusion or pneumothorax is identified. The max ny thorax is grossly intact. IMPRESSION: 1. Endotracheal and enteric tubes have been placed as above. 2. Bibasilar airspace opacities have modestly increased from previous and likely represent atelectasi s. Clinical correlation will be required. 3. No pneumothorax is seen. ACT 112: Negative or not required by law. Electronically signed by: Nick Iverson M.D. 12/24/2020 1:42 PM
[2020-12-24] MEDS ORDERED: POTASSIUM PHOSPHATE 30 MMOL in SODIUM CHLORIDE 0.9% 500 ML IV ONE (13:45)
[2020-12-24] MEDS: MIDAZOLAM HCL 125 MG/250 ML BAG IV SCH ×2 (13:56→22:45)
[2020-12-24] MEDS: MIDAZOLAM BOLUS FROM BAG IV PRN ×2 (13:57→18:41)
[2020-12-24] MEDS: PROPRANOLOL HCL 10 MG TAB PO SCH ×2 (14:17→20:26)
[2020-12-24] MEDS: fentaNYL citrate 100 MCG/2 ML VIAL IV PRN ×4 (14:17→22:45)
[2020-12-24] MEDS: ENOXAPARIN INJ 40 MG/0.4 ML SYR SQ SCH (20:26)
--- NOTE | 2020-12-24 20:45 | Hospitalist Progress Note ---
Date of Service December 24, 2020 Assessment & Plan (1) Alcohol withdrawal seizure: Plan: vs seizure due to hyponatremia. Last drink was reportedly 4:00 AM on 12/23. CT head negative at admission. Has h/o DTs requiring high doses of IV Ativan, Precedex drip, phenobarbital, and Librium. Patient loaded with IV phenobarbital at time of admission then admitted to the ICU. Since that time he has been started on IV versed drip without adequate sedation. Due to concerns of airway protection in the setting of an enlarged tongue/bite rogers/bleeding he was intubated by Dr Ray. (2) Hyponatremia: Plan: Sodium 118 on arrival. Cannot rule out hyponatremia-induced seizure. Urine sodium was 35 and urine osmolality was 211. Likely beer potomania. BESSIE may have contributed as well. Na now up to 125. Continue serial BMPs. Fluid management per ICU attending. (3) BESSIE (acute kidney injury): Plan: Creatinine 2.6 at presentation. Today - 1.5. Continue supportive care. Griffin in place. Serial BMPs. Hold VICTOR M. (4) Delirium tremens: Plan: Initially Rx with IV phenobarbital. This has been d/c. Now on versed drip. (5) Hypokalemia: Plan: Improving. Cont replacement. (6) HTN (hypertension), benign: Plan: hold VICTOR M (7) Opioid use disorder: Plan: Continue home Suboxone 8 mg twice daily. (8) Alcohol use disorder: Plan: He recently cut his alcohol use. However, he previously was drinking the equivalent of 20 alcoholic beverages daily. Etoh level negative upon ER presentation. (9) Alcoholic hepatitis: Plan: supportive care check ammonia level in am (10) Metabolic encephalopathy: Plan: 2nd to etoh withdrawal/DTs, hyponatremia, etc. cannot rule out infectious etiology (fever, etc). check ammonia level in am. (11) SIRS (systemic inflammatory response syndrome): Plan: fever, tachycardia, etc. u/a at admission not suspicious for UTI. COVID negative. CXR following intubation with bibasilar infiltrates -- developing aspiration pneumonia? consider blood cx's. consider empiric abx. of note - patient had pneumonia during previous hospital stay in September. (12) DVT prophylaxis: Plan: lovenox (13) Hypophosphatemia: Plan: replace per ICU protocol (14) Abnormal foot pulse: Plan: right foot with poor cap refill and poor pulses we were able to doppler the pulses, however this bears close watching as the left foot is normal uncertain etiology -- low threshold for arterial duplex study if this persists this was d/w Dr Ray Admission and Anticipated Discharge Date Admission Date: December 23, 2020 Subjective events of overnight/today noted. due to difficulty with maintaining sedation in the setting of an enlarged, bleeding tongue (bit tongue due to seizures) - Dr Ray intubated the patient for airway protection. patient with fevers. during my visit he was intubated/sedated. Review of Systems Review of Systems: Unobtainable due to endotracheal tube Physical Exam Physical Exam: gen - intubated, sedated mouth - ETT, blood on lips and upper neck; enteric tube in place neck - no JVD heart - RR, tachy, s1 s2, no murmur lungs - CTA anteriorly b/l abd - soft, liver edge palpable ext - no edema vascular - delayed cap refill right foot, normal cap refill L foot; pulses R foot 1+, L foot 2+ musculo - ?podagra L great toe and midfoot? Results & Data Results & Data ([facility]) Vital Signs (Past 12 Hours) Vital Signs Temp Pulse Resp BP Pulse Ox 12/24/20 20:39 125 H 17 100 12/24/20 18:00 38.0 C H 121 H 156/99 H 97 12/24/20 17:30 37.9 C H 126 H 159/103 H 99 12/24/20 17:01 37.9 C H 119 H 100 12/24/20 16:30 37.8 C H 120 H 136/94 93 12/24/20 16:00 37.8 C H 118 H 137/99 12/24/20 15:01 37.9 C H 117 H 119/89 98 12/24/20 14:47 118 H 16 96 12/24/20 14:00 38.0 C H 121 H 143/92 H 97 12/24/20 13:38 128 H 20 100 12/24/20 13:00 38.1 C H 113 H 123/88 91 12/24/20 12:37 117 H 146/99 H 12/24/20 12:00 38.4 C H 120 H 128/98 95 12/24/20 11:00 38.2 C H 118 H 145/95 H 100 12/24/20 10:00 38.2 C H 117 H 94 12/24/20 09:00 38.2 C H 116 H 122/100 88 L Laboratory Results Laboratory Results - last 24 hr 12/23/20 12/23/20 12/23/20 20:28 20:28 23:44 PT INR Sodium 120 L 122 L Potassium 3.8 D Chloride 83 L 86 L Carbon Dioxide 28 28 Anion Gap 9.0 8.0 BUN 16 15 Creatinine 2.07 H D 1.94 H Est Cr Clr Drug Dosing 62.4 66.6 Est GFR ( Amer) 46.4 50.1 Est GFR (Non-Af Amer) 40.0 43.3 BUN/Creatinine Ratio 7.8 L 7.8 L Glucose 103 H 115 H Osmolality 267 L Calcium 8.9 8.8 Phosphorus Magnesium Total Bilirubin Direct Bilirubin AST ALT Alkaline Phosphatase Total Creatine Kinase Total Protein Albumin Nasal Screen MRSA (PCR) 12/23/20 12/24/20 12/24/20 23:44 05:19 05:19 PT 10.5 INR 1.0 Sodium 125 L Potassium 3.8 3.3 L Chloride 89 L Carbon Dioxide 29 Anion Gap 7.0 BUN 14 Creatinine 1.64 H D Est Cr Clr Drug Dosing 78.8 Est GFR ( Amer) 61.4 Est GFR (Non-Af Amer) 53.0 BUN/Creatinine Ratio 8.8 L Glucose 107 H Osmolality Calcium 8.3 L Phosphorus Magnesium Total Bilirubin Direct Bilirubin 2.2 H AST ALT Alkaline Phosphatase Total Creatine Kinase Total Protein Albumin Nasal Screen MRSA (PCR) 12/24/20 12/24/20 12/24/20 05:19 08:46 14:48 PT INR Sodium 126 L 125 L Potassium 3.4 L 3.3 L Chloride 90 L 91 L Carbon Dioxide 29 28 Anion Gap 7.0 6.0 BUN 15 15 Creatinine 1.67 H 1.54 H Est Cr Clr Drug Dosing 77.4 83.9 Est GFR ( Amer) 60.1 66.3 Est GFR (Non-Af Amer) 51.9 57.2 BUN/Creatinine Ratio 8.8 L 9.4 L Glucose 102 H 111 H Osmolality Calcium 8.4 L 8.6 Phosphorus 0.7 L* Magnesium 2.0 Total Bilirubin 2.8 H Direct Bilirubin 1.9 H AST 217 H ALT 80 H Alkaline Phosphatase 134 H Total Creatine Kinase 312 H Total Protein 6.5 D Albumin 2.8 L Nasal Screen MRSA (PCR) 12/24/20 Unknown PT INR Sodium Potassium Chloride Carbon Dioxide Anion Gap BUN Creatinine Est Cr Clr Drug Dosing Est GFR ( Amer) Est GFR (Non-Af Amer) BUN/Creatinine Ratio Glucose Osmolality Calcium Phosphorus Magnesium Total Bilirubin Direct Bilirubin AST ALT Alkaline Phosphatase Total Creatine Kinase Total Protein Albumin Nasal Screen MRSA (PCR) Negative Diagnostic Findings Laboratory Results - last 24 hr 12/23/20 12/23/20 12/23/20 20:28 20:28 23:44 PT INR Sodium 120 L 122 L Potassium 3.8 D Chloride 83 L 86 L Carbon Dioxide 28 28 Anion Gap 9.0 8.0 BUN 16 15 Creatinine 2.07 H D 1.94 H Est Cr Clr Drug Dosing 62.4 66.6 Est GFR ( Amer) 46.4 50.1 Est GFR (Non-Af Amer) 40.0 43.3 BUN/Creatinine Ratio 7.8 L 7.8 L Glucose 103 H 115 H Osmolality 267 L Calcium 8.9 8.8 Phosphorus Magnesium Total Bilirubin Direct Bilirubin AST ALT Alkaline Phosphatase Total Creatine Kinase Total Protein Albumin Nasal Screen MRSA (PCR) 12/23/20 12/24/20 12/24/20 23:44 05:19 05:19 PT 10.5 INR 1.0 Sodium 125 L Potassium 3.8 3.3 L Chloride 89 L Carbon Dioxide 29 Anion Gap 7.0 BUN 14 Creatinine 1.64 H D Est Cr Clr Drug Dosing 78.8 Est GFR ( Amer) 61.4 Est GFR (Non-Af Amer) 53.0 BUN/Creatinine Ratio 8.8 L Glucose 107 H Osmolality Calcium 8.3 L Phosphorus Magnesium Total Bilirubin Direct Bilirubin 2.2 H AST ALT Alkaline Phosphatase Total Creatine Kinase Total Protein Albumin Nasal Screen MRSA (PCR) 12/24/20 12/24/20 12/24/20 05:19 08:46 14:48 PT INR Sodium 126 L 125 L Potassium 3.4 L 3.3 L Chloride 90 L 91 L Carbon Dioxide 29 28 Anion Gap 7.0 6.0 BUN 15 15 Creatinine 1.67 H 1.54 H Est Cr Clr Drug Dosing 77.4 83.9 Est GFR ( Amer) 60.1 66.3 Est GFR (Non-Af Amer) 51.9 57.2 BUN/Creatinine Ratio 8.8 L 9.4 L Glucose 102 H 111 H Osmolality Calcium 8.4 L 8.6 Phosphorus 0.7 L* Magnesium 2.0 Total Bilirubin 2.8 H Direct Bilirubin 1.9 H AST 217 H ALT 80 H Alkaline Phosphatase 134 H Total Creatine Kinase 312 H Total Protein 6.5 D Albumin 2.8 L Nasal Screen MRSA (PCR) 12/24/20 Unknown PT INR Sodium Potassium Chloride Carbon Dioxide Anion Gap BUN Creatinine Est Cr Clr Drug Dosing Est GFR ( Amer) Est GFR (Non-Af Amer) BUN/Creatinine Ratio Glucose Osmolality Calcium Phosphorus Magnesium Total Bilirubin Direct Bilirubin AST ALT Alkaline Phosphatase Total Creatine Kinase Total Protein Albumin Nasal Screen MRSA (PCR) Negative PG Care Time/CCT Total # of Minutes Spent Total Time Spent with Patient: Total time spent is greater than 50% in coordination of care (as documented) at patient's floor/unit and/or counseling patient: Coding Level of Care Code 71014 Subseq Hosp Care Lvl 2 Diagnoses Alcohol withdrawal seizure F10.239; R56.9 Complication of substance-induced condition: with unspecified complication Hyponatremia E87.1 BESSIE (acute kidney injury) N17.9 Delirium tremens F10.231 Hypokalemia E87.6 HTN (hypertension), benign I10 Opioid use disorder F11.90 Alcohol use disorder Alcoholic hepatitis K70.10 Metabolic encephalopathy G93.41 SIRS (systemic inflammatory response syndrome) R65.10 DVT prophylaxis Z29.9 Hypophosphatemia E83.39 Abnormal foot pulse R09.89 (1) Alcohol withdrawal seizure Complication of substance-induced condition: with unspecified complication Qualified Code(s): F10.239 - Alcohol dependence with withdrawal, unspecified; R56.9 - Unspecified convulsions
[2020-12-25 04:34] LABS: iSTAT Arterial Blood Gas HCO3 27 meg/L (19-24); iSTAT Arterial Blood Gas pCO2 43 mmHg (35-46); iSTAT Arterial Blood Gas pO2 90 mmHg (80-95); iSTAT Carbon Dioxide 28 mmol/L (24-31); iSTAT FiO2 30 %; iSTAT Site R Brachial
[2020-12-25 05:02] LABS: Prothrombin Time 10.1 Seconds (9.0-12.0)
[2020-12-25 05:03] LABS: Basophils # (auto) 0.12 K/uL (0-0.2); Basophils % (auto) 1.3 %; Eosinophils # (auto) 0.25 K/uL (0-0.5); Eosinophils % (auto) 2.7 %; Hemoglobin 11.3 g/dL (14.0-18.0); Immature Granulocytes % (auto) 1.1 %; Lymphocytes # (auto) 3.45 K/uL (1.2-3.4); Lymphocytes % (auto) 37.7 %; Mean Corpuscular Hemoglobin 32.1 pg (25-34); Mean Corpuscular Hgb Conc 33.2 g/dL (32-36); Mean Corpuscular Volume 96.6 fL (80-100); Mean Platelet Volume 11.8 fL (7.4-10.4); Monocytes # (auto) 1.13 K/uL (0.11-0.59); Monocytes % (auto) 12.3 %; Neutrophils # (auto) 4.11 K/uL (1.4-6.5); Neutrophils % (auto) 44.9 %; Platelet Count 138 K/uL (130-400); RDW Standard Deviation 45.4 fL (36.4-46.3); Red Blood Count 3.52 M/uL (4.7-6.1); White Blood Count 9.16 K/uL (4.8-10.8)
[2020-12-25 05:14] LABS: Albumin Level 2.7 gm/dl (3.4-5.0); Bilirubin Direct 1.8 mg/dl (0-0.2); Calcium 8.2 mg/dl (8.5-10.1); Creatinine Clr Calc Pharmacy 99.4 ml/min; Est GFR (African American) 81.4 ml/min; Est GFR (Non-African American) 70.2 ml/min; Potassium 3.3 mmol/L (3.5-5.1)
[2020-12-25 05:19] LABS: Bilirubin,Total 2.6 mg/dl (0.2-1); Phosphorus 2.2 mg/dl (2.5-4.9)
--- NOTE | 2020-12-25 07:01 | XRay Report ---
XR chest 1V portable HISTORY: 35 years-old Male Resp failure acute respiratory failure COMPARISON: Chest radiograph 12/24/2020 TECHNIQUE: Portable AP view of the chest FINDINGS: Endotracheal tube overlies the midline, 3.9 cm superior to the natalya. Right IJ central venous cathet er is unchanged. Enteric tube courses below the diaphragm with distal tip outside the [id number]. Cardiac silhouette is moderately enlarged. Mild right hemidiaphragmatic elevation. Pulmonary vascular congestion with right greater left bibasilar opacities, mildly progressed on the right. No acute fra cture. IMPRESSION: 1. Lines and tubes as above. 2. Mildly worsened right lung base airspace opacities. 3. No pneumothorax. ACT 112: Negative or not required by law. The above report was generated using voice recognition software. It may contain grammatical, syntax o r spelling errors. Electronically signed by: Chao Saavedra M.D. 12/25/2020 7:00 AM
[2020-12-25] MEDS: ACETAMINOPHEN 325 MG TAB PO PRN ×2 (07:58→22:11)
[2020-12-25] MEDS: MULTIVITAMIN TAB PO SCH (07:58)
[2020-12-25] MEDS: PANTOprazole 40 MG TAB PO SCH (07:58)
[2020-12-25] MEDS: BUPRENORPHINE/NALOXONE 8/2 MG TAB SL SCH ×2 (07:58→19:30)
[2020-12-25] MEDS: FOLIC ACID 1 MG TAB PO SCH (07:58)
[2020-12-25] MEDS: THIAMINE HCL 200 MG in SODIUM CHLORIDE 0.9% 50 ML IV SCH (07:58)
[2020-12-25] MEDS: PROPRANOLOL HCL 10 MG TAB PO SCH (07:58)
[2020-12-25] MEDS: MIDAZOLAM HCL 125 MG/250 ML BAG IV SCH ×2 (07:59→18:03)
--- NOTE | 2020-12-25 10:06 | Hospitalist Progress Note ---
Date of Service December 25, 2020 Assessment & Plan (1) Alcohol withdrawal seizure: Plan: vs seizure due to hyponatremia. Ethanol level negative on admission. Last drink was reportedly 4:00 AM on 12/23. CT head negative at admission. Has h/o DTs requiring high doses of IV Ativan, Precedex drip, phenobarbital, and Librium. Patient loaded with IV phenobarbital at time of admission then admitted to the ICU. Transition to Precedex drip today. Continuing on midazolam IV drip. Due to concerns of airway protection in the setting of an enlarged tongue/bite rogers/bleeding he was intubated by Dr Ray on 12/23. (2) Fever: Plan: Blood/sputum/urine cultures ordered this morning. Agree with [employer] for coverage of most likely source of aspiration PNA. (3) Hyponatremia: Plan: Sodium 118 on arrival. Cannot rule out hyponatremia-induced seizure. Urine sodium was 35 and urine osmolality was 211. Likely beer potomania. BESSIE may have contributed as well. Na now up to 130. Continue serial BMPs. Fluid management per ICU. (4) BESSIE (acute kidney injury): Plan: Creatinine 2.6 at presentation. Now resolved. Continue to hold ACEi. (5) Delirium tremens: Plan: Currently on Precedex and Midazolam IV drip. Management per ICU. (6) Hypokalemia: Plan: Improving. Cont replacement. (7) HTN (hypertension), benign: Plan: hold VICTOR M (8) Opioid use disorder: Plan: Continue home Suboxone 8 mg twice daily. (9) Alcohol use disorder: Plan: He recently cut his alcohol use. However, he previously was drinking the equivalent of 20 alcoholic beverages daily. Etoh level negative upon ER presentation. (10) Alcoholic hepatitis: Plan: supportive care check ammonia level in am (11) Metabolic encephalopathy: Plan: 2nd to etoh withdrawal/DTs, hyponatremia, etc. +/- aspiration PNA check ammonia level in am. (12) Hypophosphatemia: Plan: replace per ICU protocol (13) Abnormal foot pulse: Plan: Cap refil now appears normal, equal temp b/l Plan: VTE prophylaxis - Lovenox 40 mg subcu daily Diet - n.p.o. Disposition - continued ICU stay due to intubation Admission and Anticipated Discharge Date Admission Date: December 23, 2020 Subjective Patient is intubated and sedated therefore unable to contribute towards subjective narrative. Review of Systems Review of Systems: Unobtainable due to endotracheal tube and Unobtainable due to reduced consciousness Physical Exam Constitutional: + obese and + mechanically ventilated Eyes: PERRL, conjunctivae normal, anicteric sclerae Respiratory: normal respiratory effort, lungs clear to auscultation Cardiovascular: Rate/Rhythm: regular rhythm and + tachycardic Heart Sounds: normal S1 and normal S2 Extremities: normal capillary refill (Bilateral toes) and + pedal edema (Trace bilateral ankles) Gastrointestinal (Abdomen): normal bowel sounds, soft, nontender, no hepatosplenomegaly Skin: no rashes, warm and dry Neurologic: + not awake (Sedated) Results & Data Results & Data ([facility]) Vital Signs (Past 12 Hours) Vital Signs Temp Pulse Resp BP Pulse Ox 12/25/20 08:00 111 H 12/25/20 05:09 38.4 C H 109 H 16 106/69 98 12/25/20 04:39 38.4 C H 111 H 16 108/72 98 12/25/20 04:28 108 H 16 98 12/25/20 04:09 38.3 C H 113 H 16 160/105 H 100 12/25/20 03:09 38.3 C H 109 H 16 153/95 H 100 12/25/20 02:39 38.4 C H 109 H 16 118/81 100 12/25/20 02:09 38.4 C H 110 H 16 132/83 100 12/25/20 01:39 38.4 C H 111 H 16 156/100 H 100 12/25/20 01:09 38.5 C H 113 H 16 137/90 100 12/25/20 00:39 38.4 C H 112 H 17 141/90 H 100 12/25/20 00:09 38.5 C H 113 H 16 147/92 H 100 12/25/20 00:00 38.5 C H 112 H 16 147/90 H 100 12/24/20 23:07 115 H 16 100 PG Care Time/CCT Total # of Minutes Spent Total Time Spent with Patient: Total time spent is greater than 50% in coordination of care (as documented) at patient's floor/unit and/or counseling patient: Coding Level of Care Code 76970 Subseq Hosp Care Lvl 3 Diagnoses Alcohol withdrawal seizure F10.239; R56.9 Complication of substance-induced condition: with unspecified complication Hyponatremia E87.1 BESSIE (acute kidney injury) N17.9 Delirium tremens F10.231 Hypokalemia E87.6 HTN (hypertension), benign I10 Opioid use disorder F11.90 Alcohol use disorder Alcoholic hepatitis K70.10 Metabolic encephalopathy G93.41 Hypophosphatemia E83.39 Abnormal foot pulse R09.89 Fever R50.9 (1) Alcohol withdrawal seizure Complication of substance-induced condition: with unspecified complication Qualified Code(s): F10.239 - Alcohol dependence with withdrawal, unspecified; R56.9 - Unspecified convulsions
[2020-12-25] MEDS ORDERED: POTASSIUM PHOSPHATE 15 MMOL in SODIUM CHLORIDE 0.9% 250 ML IV STA (10:15)
[2020-12-25] MEDS ORDERED: STAT IV Infusion **Titration per Protocol STA (10:21)
[2020-12-25] MEDS ORDERED: POTASSIUM CHLORIDE 20 MEQ/15 ML UDC PO ONE (11:45)
[2020-12-25] MEDS: DEXMEDETOMIDINE HCL 200 MCG in SODIUM CHLORIDE 0.9% 48 ML IV SCH ×3 (11:58→18:08)
[2020-12-25] MEDS: AMPICILLIN/SULBACTAM SOD 3,000 MG in 0.9 % SODIUM CHLORIDE 100 ML IV SCH ×3 (11:59→22:10)
[2020-12-25] MEDS ORDERED: dexAMETHasone 4 MG in SYRINGE 0 ML IV ONE (13:30)
--- NOTE | 2020-12-25 13:31 | Critical Care Progress Note ---
Date of Service December 25, 2020 Assessment & Plan (1) Delirium tremens: (2) Acute renal failure: (3) SIRS (systemic inflammatory response syndrome): (4) Pneumonia: Plan: Reason Critically Ill: 35-year-old male presents to the ICU with delirium tremen s and seizure earlier today with alcohol withdrawal and hyponatremia. 24-hour events: Patient was intubated secondary to need to protect airway with tongue laceration/lacerations. Is been on minimal vent settings. He is been hemodynamically stable. He is been maintained on high-dose Versed infusion. Recommendations: Neuro -questionable alcohol withdrawal related seizure activity. Patient has a history of alcohol abuse as well as narcotic abuse and is maintained on Suboxone. We will continue thiamine and folate. Continue sedation with Versed. Add Precedex drip and may consider propofol if unable to sedate. Case management will need to assist in alcohol rehab once the patient is extubated. He is apparently failed this in the past Cardiac - Tachycardiaheart rate 130s in the setting of alcohol withdrawal. Discontinue propranolol and place the patient on Precedex. Respiratory -intubated for airway protection. Minimal vent settings currently. Continue to reassess. He showed no air leak with deflation of the cuff today. Will place on short course of dexamethasone. His tongue does not appear to be occluding his airway currently. GI - enzymes trending down. Continue to follow clinically. If unable to extubate in the next 12 to 24 hours may consider initiation of enteral feeding. RENAL/LYTES -acute kidney injury now resolved. He is hypokalemic and electrolyte replacement protocols will be initiated. He is mildly hyponatremic of unclear etiology and this will need to be trended although it appears to be correcting with IV fluids. No indication for hypertonic saline currently. - Strict I's and O's ENDO - No history of diabetes or thyroid disease HEME -mild anemia. Thrombocytopenia resolved. No evidence of acute blood loss. Continue to trend ID -patient is febrile with elevated white blood cell count. He has a patchy infiltrate at the right lung base. Check procalcitonin and respiratory cultures as well as blood culture and UA and culture. Will place on Unasyn for now. Additional recommendations pending results of culture data No indication for infectious process at this time LINES/IV ACCESS - Central venous catheter right IJ DVT PROPHYLAXIS - SCDs, Lovenox Patient remains critically ill at this point time with multisystem dysfunction. A total of 45 minutes critical care time was spent evaluation management stabilization of this patient occluding discussion with critical care FRANKLIN, bedside nurse, and on multidisciplinary rounds. No family immediately available Admission and Anticipated Discharge Date Admission Date: December 23, 2020 Subjective Patient seen and examined. He is intubated and sedated. Review of Systems Review of Systems: Unable to complete review of systems secondary to patient being intubated and sedated Physical Exam Constitutional: + obese and + mechanically ventilated Eyes: PERRL, conjunctivae normal, anicteric sclerae ENMT: external ear and nose normal, oropharynx normal Neck: trachea midline, no thyromegaly Respiratory: normal respiratory effort, lungs clear to auscultation Cardiovascular: Rate/Rhythm: regular rhythm and + tachycardic Heart Sounds: normal S1 and normal S2 Vessels: no JVD Extremities: normal capillary refill; no edema Gastrointestinal (Abdomen): normal bowel sounds, soft, nontender, no hepatosplenomegaly Musculoskeletal: no cyanosis or clubbing, extremities motor strength 5/5 Skin: no rashes, warm and dry Neurologic: Intubated and sedated Results & Data Results & Data ([facility]) Vital Signs (Past 12 Hours) Vital Signs Temp Pulse Resp BP Pulse Ox 12/25/20 10:40 102 H 16 100 12/25/20 10:00 38.1 C H 107 H 100 12/25/20 09:30 38.3 C H 108 H 117/73 100 12/25/20 09:00 38.5 C H 110 H 100 12/25/20 08:30 38.6 C H 113 H 100 12/25/20 08:00 38.6 C H 112 H 109/69 100 12/25/20 07:30 38.5 C H 114 H 100 12/25/20 07:18 112 H 17 100 12/25/20 07:00 38.4 C H 112 H 100 12/25/20 05:09 38.4 C H 109 H 16 106/69 98 12/25/20 04:39 38.4 C H 111 H 16 108/72 98 12/25/20 04:28 108 H 16 98 12/25/20 04:09 38.3 C H 113 H 16 160/105 H 100 12/25/20 03:09 38.3 C H 109 H 16 153/95 H 100 12/25/20 02:39 38.4 C H 109 H 16 118/81 100 12/25/20 02:09 38.4 C H 110 H 16 132/83 100 12/25/20 01:39 38.4 C H 111 H 16 156/100 H 100 Critical Care Results & Data Vital Signs (Past 12 Hours) Vital Signs Temp Pulse Resp BP Pulse Ox 12/25/20 10:40 102 H 16 100 12/25/20 10:00 38.1 C H 107 H 100 12/25/20 09:30 38.3 C H 108 H 117/73 100 12/25/20 09:00 38.5 C H 110 H 100 12/25/20 08:30 38.6 C H 113 H 100 12/25/20 08:00 38.6 C H 112 H 109/69 100 12/25/20 07:30 38.5 C H 114 H 100 12/25/20 07:18 112 H 17 100 12/25/20 07:00 38.4 C H 112 H 100 12/25/20 05:09 38.4 C H 109 H 16 106/69 98 12/25/20 04:39 38.4 C H 111 H 16 108/72 98 12/25/20 04:28 108 H 16 98 12/25/20 04:09 38.3 C H 113 H 16 160/105 H 100 12/25/20 03:09 38.3 C H 109 H 16 153/95 H 100 12/25/20 02:39 38.4 C H 109 H 16 118/81 100 12/25/20 02:09 38.4 C H 110 H 16 132/83 100 12/25/20 01:39 38.4 C H 111 H 16 156/100 H 100 Lab & Micro Results (Past 24 Hours) RBC 3.52 M/uL (4.7-6.1) L 12/25/20 WBC 9.16 K/uL (4.8-10.8) 12/25/20 Hgb 11.3 g/dL (14.0-18.0) L 12/25/20 Hct 34.0 % (42-52) L 12/25/20 MCV 96.6 fL (80-100) 12/25/20 MCH 32.1 pg (25-34) 12/25/20 MCHC 33.2 g/dL (32-36) 12/25/20 RDW Standard Deviation 45.4 fL (36.4-46.3) 12/25/20 RDW Coefficient of Variation 13.0 % (11.5-14.5) 12/25/20 Plt Count 138 K/uL (130-400) 12/25/20 MPV 11.8 fL (7.4-10.4) H 12/25/20 Neutrophils (%) (Auto) 44.9 % 12/25/20 Lymphocytes (%) (Auto) 37.7 % 12/25/20 Monocytes # (Auto) 1.13 K/uL (0.11-0.59) H 12/25/20 Eosinophils # (Auto) 0.25 K/uL (0-0.5) 12/25/20 Immature Granulocyte % (Auto) 1.1 % 12/25/20 Neutrophils # (Auto) 4.11 K/uL (1.4-6.5) 12/25/20 Lymphocytes # (Auto) 3.45 K/uL (1.2-3.4) H 12/25/20 Monocytes # (Auto) 1.13 K/uL (0.11-0.59) H 12/25/20 Eosinophils # (Auto) 0.25 K/uL (0-0.5) 12/25/20 Basophils # (Auto) 0.12 K/uL (0-0.2) 12/25/20 Immature Granulocyte # (Auto) 0.10 K/uL (0.00-0.02) H 12/25/20 Na 130 mmol/L (136-145) L 12/25/20 K 3.3 mmol/L (3.5-5.1) L 12/25/20 Cl 93 mmol/L (98-107) L 12/25/20 CO2 27 mmol/L (21-32) 12/25/20 Anion Gap 10.0 (3-11) 12/25/20 BUN 13 mg/dl (7-18) 12/25/20 Creatinine 1.30 mg/dl (0.6-1.4) 12/25/20 Estimated GFR ( Amer) 81.4 ml/min 12/25/20 Estimated GFR (Non-Af Amer) 70.2 ml/min 12/25/20 BUN/Creatinine Ratio 10.0 (10-20) 12/25/20 Glu 72 mg/dl (70-99) 12/25/20 Ca 8.2 mg/dl (8.5-10.1) L 12/25/20 Phosphorus Level 2.2 mg/dl (2.5-4.9) L 12/25/20 Total Bilirubin 2.6 mg/dl (0.2-1) H 12/25/20 Direct Bilirubin 1.8 mg/dl (0-0.2) H 12/25/20 AST 132 U/L (15-37) H 12/25/20 ALT 64 U/L (12-78) 12/25/20 Alkaline Phosphatase 135 U/L (45-117) H 12/25/20 TP 7.0 gm/dl (6.4-8.2) 12/25/20 Albumin 2.7 gm/dl (3.4-5.0) L 12/25/20 Mg 2.0 mg/dl (1.8-2.4) 12/25/20 04:16 12/25/20 Calcium Level 8.2 mg/dl (8.5-10.1) L 12/25/20 04:16 12/25/20 Prothromb Time International Ratio 1.0 (0.9-1.1) 12/25/20 04:16 12/25/20 Andrew Test NA 12/25/20 04:18 12/25/20 Microbiology 12/25/20 10:45 Gram Stain - Final Sputum,Vent Suction Diagnostic Findings (Past 24 Hours) Chest X-Ray 12/24/20 13:15 SINGLE VIEW CHEST CLINICAL HISTORY: Respiratory failure. Intubation. FINDINGS: An AP, portable, upright chest radiograph is compared to study dated 12/23/2020 and correlated with chest CT dated 10/01/2020. A right internal jugular central venous catheter is unchanged in position. An endotracheal tube has been placed. The tip projects 3.5 cm above the natalya. An enteric tube has been placed. This extends below the diaphragm and the tip is not visualized. The cardiomediastinal silhouette is unremarkable. There is elevation of the right hemidiaphragm. Bibasilar opacities have modestly increased from previous. No large pleural effusion or pneumothorax is identified. The bony thorax is grossly intact. IMPRESSION: 1. Endotracheal and enteric tubes have been placed as above. 2. Bibasilar airspace opacities have modestly increased from previous and likely represent atelectasis. Clinical correlation will be required. 3. No pneumothorax is seen. ACT 112: Negative or not required by law. Electronically signed by: Nick Iverson M.D. 12/24/2020 1:42 PM Chest X-Ray 12/25/20 07:00 XR chest 1V portable HISTORY: 35 years-old Male Resp failure acute respiratory failure COMPARISON: Chest radiograph 12/24/2020 TECHNIQUE: Portable AP view of the chest FINDINGS: Endotracheal tube overlies the midline, 3.9 cm superior to the natalya. Right IJ central venous catheter is unchanged. Enteric tube courses below the diaphragm with distal tip outside the [id number]. Cardiac silhouette is moderately enlarged. Mild right hemidiaphragmatic elevation. Pulmonary vascular congestion with right greater left bibasilar opacities, mildly progressed on the right. No acute fracture. IMPRESSION: 1. Lines and tubes as above. 2. Mildly worsened right lung base airspace opacities. 3. No pneumothorax. ACT 112: Negative or not required by law. The above report was generated using voice recognition software. It may contain grammatical, syntax or spelling errors. Electronically signed by: Chao Saavedra M.D. 12/25/2020 7:00 AM I & O Totals 24 Hours 12/24/20 12/25/20 12/26/20 06:59 06:59 06:59 Intake Total 2460.700 / 2460.700 2392.017 / 2392.017 555.133 / 555.133 Output Total 2375 / 2375 750 / 750 Balance 2460.700 / 2460.700 17.017 / 17.017 -194.867 / -194.867 Cumulative 12/23/20 11:44 thru 12/25/20 13:14 Intake Total 5407.850 Output Total 3125 Balance 2282.850 RT Ventilator Mngmt (Last Documented) Ventilator Ordered Settings Ventilator Support Mode Assist Control 12/25/20 12:00 Respiratory Rate 16 12/25/20 10:40 Ventilator Tidal Volume 500 12/25/20 12:00 Setting Minute Ventilation 8 12/25/20 10:40 Positive End Expiratory 5 12/25/20 12:00 Pressure Fraction of Inspired Oxygen 30 12/25/20 12:00 Machine Comment settings per Dr. Ray 12/24/20 13:38 Ventilator - PT Measurements Respiratory Rate 16 Exhaled Tidal Volume 500 Minute Ventilation 8 Peak Inspiratory Airway 19 Pressure Plateau Pressure 15 Respiratory Cycle Inspiratory: 1:3.7 Expiratory Ratio Inspiratory Phase Time 0.8 End-Tidal CO2 38 Static Lung Compliance 50.00 Dynamic Lung Compliance 35.71 Normal Static Lung Compliance 48.00 Patient Measurements Comment NO CUFF LEAK Coding Level of Care Code Critical Care 1st 30-74 mins Diagnoses Delirium tremens F10.231 Acute renal failure N17.9 Acute renal failure type: unspecified SIRS (systemic inflammatory response syndrome) R65.10 Pneumonia J18.9 Time Spent (min) 45 (1) Acute renal failure Acute renal failure type: unspecified Qualified Code(s): N17.9 - Acute kidney failure, unspecified
[2020-12-25] MEDS ORDERED: ICU ELECTROLYTE REPLACEMENT PROTOCOL SCH (16:00)
[2020-12-25 16:43] LABS: BUN Creatinine Ratio 12.5 (10-20); Calcium 8.4 mg/dl (8.5-10.1); Creatinine Clr Calc Pharmacy 102.6 ml/min; Est GFR (African American) 84.5 ml/min; Est GFR (Non-African American) 72.9 ml/min; Potassium 3.4 mmol/L (3.5-5.1)
[2020-12-25] MEDS: POTASSIUM CHLORIDE / WTR 20 MEQ/100 ML PLCT IV SCH ×3 (17:29→22:10)
[2020-12-25] MEDS: DEXMEDETOMIDINE HCL 400 MCG in 0.9 % SODIUM CHLORIDE 96 ML IV SCH (18:00)
[2020-12-25] MEDS: ICU ELECTROLYTE REPLACEMENT PROTOCOL SCH (18:01)
[2020-12-25] MEDS: ENOXAPARIN INJ 40 MG/0.4 ML SYR SQ SCH (19:28)
[2020-12-26] MEDS: POTASSIUM CHLORIDE / WTR 20 MEQ/100 ML PLCT IV SCH (00:43)
[2020-12-26] MEDS: DEXMEDETOMIDINE HCL 400 MCG in 0.9 % SODIUM CHLORIDE 96 ML IV SCH ×5 (00:44→20:22)
[2020-12-26] MEDS: AMPICILLIN/SULBACTAM SOD 3,000 MG in 0.9 % SODIUM CHLORIDE 100 ML IV SCH ×4 (04:24→21:36)
[2020-12-26 04:52] LABS: Basophils # (auto) 0.03 K/uL (0-0.2); Basophils % (auto) 0.5 %; Eosinophils # (auto) 0.03 K/uL (0-0.5); Eosinophils % (auto) 0.5 %; Hematocrit (blood only) 33.3 % (42-52); Hemoglobin 10.8 g/dL (14.0-18.0); Immature Granulocytes # (auto) 0.24 K/uL (0.00-0.02); Immature Granulocytes % (auto) 3.7 %; Lymphocytes # (auto) 1.66 K/uL (1.2-3.4); Lymphocytes % (auto) 25.5 %; Mean Corpuscular Hgb Conc 32.4 g/dL (32-36); Mean Corpuscular Volume 98.8 fL (80-100); Mean Platelet Volume 10.8 fL (7.4-10.4); Monocytes # (auto) 1.28 K/uL (0.11-0.59); Monocytes % (auto) 19.6 %; Neutrophils # (auto) 3.28 K/uL (1.4-6.5); Neutrophils % (auto) 50.2 %; Platelet Count 179 K/uL (130-400); Red Blood Count 3.37 M/uL (4.7-6.1); White Blood Count 6.52 K/uL (4.8-10.8)
[2020-12-26 05:04] LABS: Prothrombin Time 9.9 Seconds (9.0-12.0)
[2020-12-26 05:22] LABS: Albumin Level 2.5 gm/dl (3.4-5.0); Bilirubin Direct 1.2 mg/dl (0-0.2); Bilirubin,Total 1.6 mg/dl (0.2-1); Calcium 8.3 mg/dl (8.5-10.1); Creatinine Clr Calc Pharmacy 113.4 ml/min; Est GFR (African American) 95.4 ml/min; Est GFR (Non-African American) 82.3 ml/min; Magnesium 2.3 mg/dl (1.8-2.4); Phosphorus 3.5 mg/dl (2.5-4.9); Potassium 4.5 mmol/L (3.5-5.1); Total Protein 7.1 gm/dl (6.4-8.2)
[2020-12-26] MEDS: ICU ELECTROLYTE REPLACEMENT PROTOCOL SCH ×2 (06:17→17:11)
[2020-12-26] MEDS: MIDAZOLAM HCL 125 MG/250 ML BAG IV SCH ×2 (07:35→07:36)
--- NOTE | 2020-12-26 07:49 | Critical Care Progress Note ---
Date of Service December 26, 2020 Assessment & Plan (1) Delirium tremens: Plan: Reason Critically Ill: 35-year-old male with known history of alcohol use and opioid use disorder who presented following a witnessed seizure on 12/23 associated with tongue biting; found to be hyponatremic to 119 on his arrival. He requires care in the ICU for management of his delirium tremens, alcohol withdrawal, and hyponatremia. Neuro - Alcohol Withdrawal, Alcohol Withdrawal Seizure * Last drink 12/23 at ~0400, with witnessed seizure on 12/23 while at work following cutting EtOH use in half (~20 drinks / day --> ~10 drinks/day) * Ween and discontinue Versed with goal to extubate this morning. Maintain Precedex. * No indication for anticonvulsants given suspected mechanism of seizure * Continue parental thiamine and folate supplementation * Appreciate case management assistance with identifying possible rehabilitation options moving forward Cardiac - Tachycardia: Previously with rates in the 130s. Now resolved on Precedex. Monitor. HTN: BPs tending towards 140-150s/90s over last 24 hours. Monitor for next 12 hours - can consider addition of antihypertensive thereafter. Respiratory - Airway Compromise * Intubated 12/23 given concerns for airway protection * Continues to require minimal ventilatory settings. Demonstrated adequate air leak with deflation of the cuff today following dexamethasone given yesterday * At this point, will plan to extubate -- ween Versed, maintain Precedex as above -- Suspected aspiration PNA: see below. GI - Diet: Plan to extubate. Thereafter, plan to start on clear liquid diet and can advance as tolerated. RENAL/LYTES - I+O / 24 hours: 2140/-2290 = -150 (0.97) -- adequate UOP. BESSIE: Resolved s/p IVF. Monitor BMP. Hyponatremia: Presented at 119, now stable at 131 following isotonic fluids. Etiology unclear at present. Appears euvolemic on exam and UOP is adequate. Possibly beer potomania given clinical history. Continue to monitor for now. Can consider urine osm's, FENa, and Victoria if worsening or not improving with PO intake. - Maintain Griffin catheter, strict I+Os. GI PPX: Protonix 40mg/day. ENDO - No significant endocrinologic history. Maintain ICU hyperglycemia protocol. HEME - Normocytic Anemia: Presented with Hgb 14.5, now stable at 10.8. MCV high-normal at 99. Previous admission with similar H&H (~11). Suspect he presented volume contracted with element of hemoconcentration, potentially atop growing nutritional deficiency from alcohol use. No evidence of current or ongoing bleeding. * Added iron studies, B12, folic acid, and reticulocyte count to AM labs. Guide further supplementation, if indicated, based on results. ID - Aspiration Pneumonia * CXR demonstrating RLL opacities in setting of recent seizure-like activity and tongue biting. Procalcitonin mildly elevated and intermittently elevated temperatures -- concerning for mild aspiration PNA. Sputum gram stain (-) with minimal WBCs. * Awaiting BCX and UCX * Continue Unasyn for now * Transition to Augmentin once able to tolerate PO INTEGUMENTARY - No acute needs. LINES/IV ACCESS - CVC in right IJ DVT PROPHYLAXIS - SCDs, Lovenox Thank you for allowing us to be part of this patient's care. Please refer to Dr. Araujo's documentation for any further recommendations. (2) Alcohol withdrawal: (3) Hyponatremia: (4) Alcohol withdrawal seizure: (5) Alcohol use disorder: (6) Opioid use disorder: Admission and Anticipated Discharge Date Admission Date: December 23, 2020 Supervising Physician Co-Signing Physician Notes Patient seen and examined. EMR reviewed. Discussed on multidisciplinary rounds and with family practice resident. Agree with assessment plan as noted above. Patient has been stable over the last 24 hours. He has a significant air leak on deflation of the cuff this morning. He did receive 1 dose of dexamethasone. He is defervesced. He appears comfortably sedated on Precedex and Versed. We will wean Versed to off and plan on extubating him as long as he is calm and cooperative. Continue Precedex for now but can likely wean this off as well. No intervention required for alcohol withdrawal seizures. Continue high-dose thiamine and folate. Continue antibiotics for presumed aspiration pneumonia, will likely need 5 to 7 days of antimicrobial therapy. Will require speech therapy evaluation/swallow evaluation once extubated. Will also likely require PT and OT evaluations. We will continue to observe in the ICU post extubation and if the patient does well he can likely be transferred to the floor within the next 12 to 24 hours Subjective Patient seen at the bedside this morning. Unable to provide meaningful history. Overnight, Versed maintained at 8 mg/hr, Precedex at 0.5 mcg/kg/hr. He was able to open his eyes when asked and squeeze hands. Denied pain. Review of Systems Review of Systems: Unobtainable due to endotracheal tube and Unobtainable due to reduced consciousness Physical Exam Physical Exam: General: Mechanically ventilated 35yoM who is diaphoretic. Follows commands and was easily aroused. HEENT: NCAT. Eyes - PERRL. Mouth - Glossitis without clear evidence of tongue laceration. Purulent oral secretions appreciated. Cardiac: Normal rate and regular rhythm; S1 and S2 present with no murmurs, rubs, or gallops. Pulmonary: Mechanically ventilated. Grossly, lungs were clear to auscultation bilaterally with no crackles or wheezes. Abdominal: Normoactive bowel sounds. Abdomen was soft, nondistended, and non- tender to palpation. Extremities: Upper and lower extremities are warm and well perfused. Radial and dorsalis pedis pulses were 2+ b/l. Capillary refill assessed in UE was < 3 sec. Neuro: Direct pupillary and corneal reflexes positive. Results & Data Results & Data ([facility]) Vital Signs (Past 12 Hours) Vital Signs Temp Pulse Resp BP Pulse Ox 12/26/20 06:00 37.1 C 77 138/84 98 12/26/20 05:30 37.2 C 76 150/91 H 98 12/26/20 05:00 37.2 C 79 146/89 H 99 12/26/20 04:30 37.2 C 81 144/83 H 99 12/26/20 04:00 37.3 C 77 142/82 H 98 12/26/20 03:44 80 17 98 12/26/20 03:30 37.4 C 76 134/83 98 12/26/20 03:00 37.4 C 79 139/81 98 12/26/20 02:30 37.5 C 78 128/80 98 12/26/20 02:00 37.5 C 78 133/76 98 12/26/20 01:30 37.6 C H 80 130/77 96 12/26/20 01:00 37.5 C 81 126/77 94 12/26/20 00:45 37.6 C H 80 126/73 93 12/26/20 00:30 37.6 C H 80 122/72 91 12/26/20 00:15 37.5 C 78 123/73 91 12/26/20 00:00 37.5 C 81 124/68 90 12/25/20 23:53 80 18 92 12/25/20 23:45 37.5 C 78 127/78 98 12/25/20 23:30 37.5 C 82 129/76 99 12/25/20 23:28 82 12/25/20 23:15 37.5 C 81 131/76 98 12/25/20 23:00 37.5 C 83 126/76 98 12/25/20 22:45 37.6 C H 82 127/77 98 12/25/20 22:30 37.6 C H 83 127/78 98 12/25/20 22:15 37.6 C H 84 127/73 99 12/25/20 22:00 37.7 C H 83 127/73 98 12/25/20 21:45 37.7 C H 83 98 12/25/20 21:30 37.7 C H 83 98 12/25/20 21:15 37.7 C H 84 98 12/25/20 21:00 37.6 C H 84 121/80 98 12/25/20 20:09 37.5 C 82 14 128/78 97 12/25/20 20:00 37.4 C 81 129/77 97 Resident Activity Tracking Resident Involvement: Resident Care Provided Care Provided: Adult Hospital Medicine (1) Alcohol withdrawal Complication of substance-induced condition: with unspecified complication Qualified Code(s): F10.239 - Alcohol dependence with withdrawal, unspecified (2) Alcohol withdrawal seizure Complication of substance-induced condition: with unspecified complication Qualified Code(s): F10.239 - Alcohol dependence with withdrawal, unspecified; R56.9 - Unspecified convulsions
[2020-12-26 08:51] LABS: Reticulocyte % 1.3 % (0.5-2.0); Reticulocytes # 0.05 10^6/uL (0.02-0.10)
[2020-12-26] MEDS: PANTOprazole 40 MG TAB PO SCH (09:17)
[2020-12-26] MEDS: BUPRENORPHINE/NALOXONE 8/2 MG TAB SL SCH ×2 (09:17→20:30)
[2020-12-26] MEDS: FOLIC ACID 1 MG TAB PO SCH (09:17)
[2020-12-26] MEDS: THIAMINE HCL 200 MG in SODIUM CHLORIDE 0.9% 50 ML IV SCH (09:18)
[2020-12-26 09:37] LABS: Ferritin 1593.3 ng/ml (8-388)
[2020-12-26 10:24] LABS: Folate (Folic Acid) > 20.00 ng/ml (>5.38); Vitamin B12 1321 pg/ml (193-986)
--- NOTE | 2020-12-26 10:34 | Hospitalist Progress Note ---
Date of Service December 26, 2020 Assessment & Plan (1) Alcohol withdrawal seizure: Plan: vs seizure due to hyponatremia. Ethanol level negative on admission. Last drink was reportedly 4:00 AM on 12/23. CT head negative at admission. Has h/o DTs requiring high doses of IV Ativan, Precedex drip, phenobarbital, and Librium. Now only requiring Precedex. Due to concerns of airway protection in the setting of an enlarged tongue/bite rogers/bleeding he was intubated by Dr Ray on 12/23. Extubated 12/26. (2) Delirium tremens: Plan: As above. Continued management in ICU. Consider downgrade to PCU tomorrow if stable. (3) Fever: Plan: Blood/sputum/urine cultures pending from 12/25. Agree with Unasyn for coverage of most likely source of aspiration PNA. Procalcitonin minimally elevated. (4) Hyponatremia: Plan: Sodium 118 on arrival. Cannot rule out hyponatremia-induced seizure. Suspected beer potomania. BESSIE may have contributed as well. Na now up to 131. Continue serial BMPs. Fluid management per ICU. (5) BESSIE (acute kidney injury): Plan: Creatinine 2.6 at presentation. Now resolved. Continue to hold ACEi. (6) Hypokalemia: Plan: Improving. Cont replacement. (7) HTN (hypertension), benign: Plan: hold VICTOR M (8) Opioid use disorder: Plan: Continue home Suboxone 8 mg twice daily. (9) Alcohol use disorder: Plan: He recently cut his alcohol use. However, he previously was drinking the equivalent of 20 alcoholic beverages daily. Etoh level negative upon ER presentation. (10) Alcoholic hepatitis: Plan: supportive care check ammonia level in am (11) Metabolic encephalopathy: Plan: 2nd to etoh withdrawal/DTs, hyponatremia, etc. +/- aspiration PNA Ammonia 13 - non-contributory (12) Hypophosphatemia: Plan: replace per ICU protocol Plan: VTE prophylaxis - Lovenox 40 mg subcu daily Diet - n.p.o. pending SLT evaluation Disposition - continued ICU stay, consider downgrade to PCU tomorrow if stable. Admission and Anticipated Discharge Date Admission Date: December 23, 2020 Subjective Patient seen after extubation this morning. Awakes to voice but sleeping heavily. Continues on Precedex. Reportedly orientated to person, place an year to his RN this morning. No talking to me, goes back to sleep easily after he wakes up. Following one step commands and communications clerk strength appears equal. Review of Systems Review of Systems: Unobtainable due to cognitive status Physical Exam Constitutional: + obese and + mechanically ventilated ENMT: Mouth: + dry oral mucous membranes Neck: trachea midline, no thyromegaly Respiratory: normal respiratory effort Auscultation: + diminished lung sounds (throughout); no crackles and no wheezes Cardiovascular: Rate/Rhythm: regular rate and regular rhythm Extremities: normal capillary refill; no edema Gastrointestinal (Abdomen): normal bowel sounds, soft, nontender, no hepatosplenomegaly Skin: no rashes, warm and dry Results & Data Results & Data ([facility]) Vital Signs (Past 12 Hours) Vital Signs Temp Pulse Resp BP Pulse Ox 12/26/20 08:00 81 12/26/20 07:21 78 18 97 12/26/20 06:00 37.1 C 77 138/84 98 12/26/20 05:30 37.2 C 76 150/91 H 98 12/26/20 05:00 37.2 C 79 146/89 H 99 12/26/20 04:30 37.2 C 81 144/83 H 99 12/26/20 04:00 37.3 C 77 142/82 H 98 12/26/20 03:44 80 17 98 12/26/20 03:30 37.4 C 76 134/83 98 12/26/20 03:00 37.4 C 79 139/81 98 12/26/20 02:30 37.5 C 78 128/80 98 12/26/20 02:00 37.5 C 78 133/76 98 12/26/20 01:30 37.6 C H 80 130/77 96 12/26/20 01:00 37.5 C 81 126/77 94 12/26/20 00:45 37.6 C H 80 126/73 93 12/26/20 00:30 37.6 C H 80 122/72 91 12/26/20 00:15 37.5 C 78 123/73 91 12/26/20 00:00 37.5 C 81 124/68 90 12/25/20 23:53 80 18 92 12/25/20 23:45 37.5 C 78 127/78 98 12/25/20 23:30 37.5 C 82 129/76 99 12/25/20 23:28 82 12/25/20 23:15 37.5 C 81 131/76 98 12/25/20 23:00 37.5 C 83 126/76 98 12/25/20 22:45 37.6 C H 82 127/77 98 12/25/20 22:30 37.6 C H 83 127/78 98 PG Care Time/CCT Total # of Minutes Spent Total Time Spent with Patient: Total time spent is greater than 50% in coordination of care (as documented) at patient's floor/unit and/or counseling patient: Coding Level of Care Code 12032 Subseq Hosp Care Lvl 3 Diagnoses Alcohol withdrawal seizure F10.239; R56.9 Complication of substance-induced condition: with unspecified complication Fever R50.9 Hyponatremia E87.1 BESSIE (acute kidney injury) N17.9 Delirium tremens F10.231 Hypokalemia E87.6 HTN (hypertension), benign I10 Opioid use disorder F11.90 Alcohol use disorder Alcoholic hepatitis K70.10 Metabolic encephalopathy G93.41 Hypophosphatemia E83.39 (1) Alcohol withdrawal seizure Complication of substance-induced condition: with unspecified complication Qualified Code(s): F10.239 - Alcohol dependence with withdrawal, unspecified; R56.9 - Unspecified convulsions
[2020-12-26] MEDS: MULTIVITAMIN TAB PO SCH (10:35)
--- NOTE | 2020-12-26 10:51 | Billing Data ---
Date of Service December 26, 2020 Coding Level of Care Code 21871 Subseq Hosp Care Lvl 3
[2020-12-26] MEDS: lisinopril 5 MG TAB PO SCH (13:05)
[2020-12-26] MEDS ORDERED: hydrALAZINE HCL 20 MG/ML VIAL IV STA ×2 (13:07)
[2020-12-26] MEDS ORDERED: hydrALAZINE HCL 20 MG/ML VIAL ONE (13:10)
[2020-12-26] MEDS ORDERED: LORazepam 3 MG/6 ML VIAL IV PRN (19:01)
[2020-12-26] MEDS ORDERED: ATIVAN IV ALCOHOL WITHDRAWL IV PRN (19:01)
[2020-12-26] MEDS: ENOXAPARIN INJ 40 MG/0.4 ML SYR SQ SCH (20:23)
[2020-12-26] MEDS: LORazepam 1 MG/2 ML VIAL IV PRN ×2 (20:30→23:04)
[2020-12-27] MEDS: DEXMEDETOMIDINE HCL 400 MCG in 0.9 % SODIUM CHLORIDE 96 ML IV SCH ×3 (00:41→08:44)
[2020-12-27] MEDS ORDERED: hydrALAZINE HCL 20 MG/ML VIAL IV STA (02:09)
[2020-12-27] MEDS: LORazepam 2 MG/4 ML VIAL IV PRN ×2 (02:12→05:41)
[2020-12-27] MEDS: AMPICILLIN/SULBACTAM SOD 3,000 MG in 0.9 % SODIUM CHLORIDE 100 ML IV SCH ×2 (04:02→10:25)
[2020-12-27] MEDS: LORazepam 1 MG/2 ML VIAL IV PRN ×2 (04:03→07:49)
[2020-12-27] MEDS: ACETAMINOPHEN 325 MG TAB PO PRN (05:20)
[2020-12-27 05:50] LABS: Basophils # (auto) 0.06 K/uL (0-0.2); Basophils % (auto) 0.8 %; Eosinophils # (auto) 0.21 K/uL (0-0.5); Hematocrit (blood only) 32.5 % (42-52); Hemoglobin 10.6 g/dL (14.0-18.0); Immature Granulocytes # (auto) 0.26 K/uL (0.00-0.02); Immature Granulocytes % (auto) 3.7 %; Lymphocytes # (auto) 2.92 K/uL (1.2-3.4); Lymphocytes % (auto) 41.4 %; Mean Corpuscular Hgb Conc 32.6 g/dL (32-36); Mean Corpuscular Volume 98.2 fL (80-100); Mean Platelet Volume 10.9 fL (7.4-10.4); Monocytes # (auto) 1.28 K/uL (0.11-0.59); Monocytes % (auto) 18.1 %; Neutrophils # (auto) 2.33 K/uL (1.4-6.5); Platelet Count 227 K/uL (130-400); RDW Coefficient of Variation 13.3 % (11.5-14.5); RDW Standard Deviation 47.2 fL (36.4-46.3); Red Blood Count 3.31 M/uL (4.7-6.1); White Blood Count 7.06 K/uL (4.8-10.8)
--- NOTE | 2020-12-27 06:31 | Critical Care Progress Note ---
Date of Service December 27, 2020 Assessment & Plan (1) Delirium tremens: Plan: Reason Critically Ill: 35-year-old male with known history of alcohol use and opioid use disorder who presented following a witnessed seizure on 12/23 associated with tongue biting; also found to be hyponatremic to 119 on his arrival. He required care in the ICU for management of his delirium tremens, alcohol withdrawal, and hyponatremia through this morning, and is now stable for transition out of the ICU. Neuro - Alcohol Withdrawal * Last drink 12/23 at ~0400, with witnessed seizure on 12/23 while at work following cutting EtOH use in half (~20 drinks / day --> ~10 drinks/day) * Weened off Precedex. * Begin Librium taper * Ativan prn based on AWSS * Continue parental thiamine and folate supplementation * Appreciate case management assistance with identifying possible rehabilitation options moving forward Seizure * Suspect secondary to alcohol withdrawal and patient's high-risk drinking patterns (>20/day -> 10/day in previous days before admission) * Hyponatremia considered as a possibility with presenting Na 118 - now corrected * No indication for anticonvulsants at this time Opioid Use Disorder * Continue Suboxone Cardiac - Tachycardia: Previously with rates in the 130s. Now resolved on Precedex. Monitor. HTN: BPs tending towards 140-170s/90s over last 24 hours. Restarted home lisinopril 5mg - can consider increasing to 10mg if continuously hypertensive throughout stay. Hydralazine PRN for BPs > 170/100s Respiratory - Airway Compromise -- Resolved * Intubated 12/23 given concerns for airway protection. Extubated 12/26. -- Suspected aspiration PNA: see below. GI - Diet: Seen by speech. NPO for now. FEES today, can potentially transition to diet thereafter. * Continue protonix 40mg/day RENAL/LYTES - BESSIE: Resolved s/p IVF. Monitor BMP. Hyponatremia: Presented at 119, now stable at ~130 following isotonic fluids. Etiology unclear at present. Continues to appear euvolemic on exam and UOP is adequate. Possibly beer potomania given clinical history. Continue to monitor for now. Can consider urine osm's, FENa, and Victoria if worsening or not improving once PO intake is initiated. ICU electrolyte replacement protocol - Maintain Griffin catheter, strict I+Os. Can consider removal once more alert. ENDO - No significant endocrinologic history. Maintain ICU hyperglycemia protocol. HEME - Normocytic Anemia: Presented with Hgb 14.5, now stable between 10.5 - 11.0. MCV high-normal at 99. Previous admission with similar H&H (~11). Suspect he presented volume contracted with element of hemoconcentration, potentially atop growing nutritional deficiency from alcohol use. No evidence of current or ongoing bleeding.Nutritional work-up revealing of high B12, normal folate, low iron/TIBC and elevated ferritin in setting of aspiration PNA, other issues ongoing. RDI consistent w/ hypoproliferation - likely in setting of EtOH use. ID - Aspiration Pneumonia * CXR demonstrating RLL opacities in setting of recent seizure-like activity and tongue biting. Procalcitonin mildly elevated and intermittently elevated temperatures -- concerning for mild aspiration PNA. Sputum gram stain w/ light normal floral and minimal WBCs. * BCX, UCX - NGTD * Transition from Unasyn -> Augmentin INTEGUMENTARY - No acute needs. LINES/IV ACCESS - CVC in right IJ DVT PROPHYLAXIS - SCDs, Lovenox Thank you for allowing us to be part of this patient's care. Please refer to Dr. Araujo's documentation for any further recommendations. (2) Alcohol withdrawal: (3) Hyponatremia: (4) Alcohol withdrawal seizure: (5) Alcohol use disorder: (6) Opioid use disorder: Admission and Anticipated Discharge Date Admission Date: December 23, 2020 Supervising Physician Co-Signing Physician Notes Patient seen and examined. EMR reviewed. Discussed with family practice resident with bedside critical care nurse and on multidisciplinary rounds. Patient is doing well clinically. Has been weaned off of Precedex. Continue symptom driven Ativan. We will add Librium taper per [facility] protocol. No need for antipsychotics. Transition to oral antibiotics for an additional 3days. Griffin will be discontinued. Out of bed to chair. Speech therapy evaluation today and advance diet per speech. Patient is okay to transfer out of the ICU. Critical care services will sign off. Feel free to contact us if we can be of additional assistance Subjective Doing well off Precedex. AWSS at 8, 7 this AM. Feels fatigued this morning but no pain or discomfort. Breathing OK - no shortness of breath. No chest pain. Denies nausea. Review of Systems Review of Systems: as per HPI Physical Exam Physical Exam: General: Tired and diaphoretic appearing 35yoM who is relaxed in his hospital bed, NAD. HEENT: NCAT. Eyes - PERRL. Mouth - Evidence of anterior tongue laceration, edema greatly reduced. Cardiac: Normal rate and regular rhythm; S1 and S2 present with no murmurs, rubs, or gallops. Pulmonary: Easy respiratory effort with symmetric expansion of the chest. Lungs were clear to auscultation bilaterally with no crackles or wheezes. Abdominal: Normoactive bowel sounds. Abdomen was soft, nondistended, and non- tender to palpation. Extremities: Upper and lower extremities are warm and well perfused. Radial and dorsalis pedis pulses were 2+ b/l. Capillary refill assessed in UE was < 3 sec. No tremor. Results & Data Results & Data ([facility]) Vital Signs (Past 12 Hours) Vital Signs Temp Pulse Resp BP Pulse Ox 12/27/20 06:00 38.3 C H 100 H 19 144/87 H 100 12/27/20 05:00 38.0 C H 94 H 19 185/114 H 94 12/27/20 04:00 37.9 C H 99 H 20 171/94 H 95 12/27/20 03:45 37.8 C H 94 H 19 154/86 H 93 12/27/20 03:30 37.7 C H 91 H 16 93 12/27/20 03:15 37.6 C H 88 17 93 12/27/20 03:00 37.5 C 86 21 93 12/27/20 02:45 37.5 C 86 17 95 12/27/20 02:30 37.6 C H 89 18 97 12/27/20 02:15 37.6 C H 80 15 100 12/27/20 02:00 37.5 C 79 17 164/87 H 100 12/27/20 01:00 37.6 C H 79 15 170/118 H 100 12/27/20 00:00 37.5 C 80 15 173/116 H 100 12/26/20 23:45 87 12/26/20 23:00 37.6 C H 80 15 165/116 H 100 12/26/20 22:00 37.8 C H 81 16 181/109 H 100 12/26/20 21:00 37.8 C H 85 17 129/93 99 12/26/20 20:00 37.6 C H 90 174/109 H 98 12/26/20 19:00 37.7 C H 84 181/112 H 98 (1) Alcohol withdrawal Complication of substance-induced condition: with unspecified complication Qualified Code(s): F10.239 - Alcohol dependence with withdrawal, unspecified (2) Alcohol withdrawal seizure Complication of substance-induced condition: with unspecified complication Qualified Code(s): F10.239 - Alcohol dependence with withdrawal, unspecified; R56.9 - Unspecified convulsions
[2020-12-27 06:39] LABS: BUN Creatinine Ratio 11.2 (10-20); Calcium 8.6 mg/dl (8.5-10.1); Est GFR (African American) 127.5 ml/min; Phosphorus 1.3 mg/dl (2.5-4.9); Potassium 3.6 mmol/L (3.5-5.1)
[2020-12-27] MEDS ORDERED: SODIUM PHOSPHATE 3 MMOL/1 ML INFUSION IV STA (06:42)
[2020-12-27] MEDS: ICU ELECTROLYTE REPLACEMENT PROTOCOL SCH (06:46)
[2020-12-27] MEDS ORDERED: SODIUM PHOSPHATE 30 MMOL in SODIUM CHLORIDE 0.9% 500 ML IV ONE (07:00)
[2020-12-27] MEDS: MAGNESIUM SULFATE / D5W 1 GM/100 ML BAG IV SCH ×2 (07:48→09:43)
[2020-12-27] MEDS: POTASSIUM CHLORIDE / WTR 20 MEQ/100 ML PLCT IV SCH ×2 (07:48→09:43)
[2020-12-27] MEDS: BUPRENORPHINE/NALOXONE 8/2 MG TAB SL SCH ×2 (09:43→19:59)
[2020-12-27] MEDS: lisinopril 5 MG TAB PO SCH (09:44)
[2020-12-27] MEDS: FOLIC ACID 1 MG TAB PO SCH (09:44)
[2020-12-27] MEDS: MULTIVITAMIN TAB PO SCH (09:44)
[2020-12-27] MEDS: THIAMINE HCL 200 MG in SODIUM CHLORIDE 0.9% 50 ML IV SCH (09:44)
[2020-12-27] MEDS ORDERED: chlordiazePOXIDE ALCOHOL WITHDRAWL 50MG PO STA (10:17)
--- NOTE | 2020-12-27 10:49 | Hospitalist Progress Note ---
Date of Service December 27, 2020 Assessment & Plan (1) Alcohol withdrawal seizure: Plan: vs seizure due to hyponatremia. Ethanol level negative on admission. Last drink was reportedly 4:00 AM on 12/23. CT head negative at admission. Has h/o DTs requiring high doses of IV Ativan, Precedex drip, phenobarbital, and Librium. Now only requiring Precedex. Due to concerns of airway protection in the setting of an enlarged tongue/bite rogers/bleeding he was intubated by Dr Ray on 12/23. Extubated 12/26. Librium taper appropriately started by ICU, will continue this given significant amounts of Ativan required after Versed stopped. Now also off precedex. (2) Delirium tremens: Plan: As above. Continued management in ICU. Consider downgrade to PCU tomorrow if stable. (3) Fever: Plan: Blood/sputum/urine cultures pending from 12/25. Agree with Unasyn for coverage of most likely source of aspiration PNA. Procalcitonin minimally elevated. (4) Hyponatremia: Plan: Sodium 118 on arrival. Cannot rule out hyponatremia-induced seizure. Suspected beer potomania. BESSIE may have contributed as well. Na now up to 130. Continue serial BMPs. Discontinued further IV fluids (5) BESSIE (acute kidney injury): Plan: Creatinine 2.6 at presentation. Now resolved. Restarted on lisinopril (6) Hypokalemia: Plan: Improving. Cont replacement. (7) HTN (hypertension), benign: Plan: hold VICTOR M (8) Opioid use disorder: Plan: Continue home Suboxone 8 mg twice daily. (9) Alcohol use disorder: Plan: He recently cut his alcohol use. However, he previously was drinking the equivalent of 20 alcoholic beverages daily. Etoh level negative upon ER presentation. (10) Alcoholic hepatitis: Plan: supportive care check ammonia level in am (11) Metabolic encephalopathy: Plan: 2nd to etoh withdrawal/DTs, hyponatremia, etc. +/- aspiration PNA Ammonia 13 - non-contributory (12) Hypophosphatemia: Plan: replacement ordered per ICU protocol. Recheck in AM. Plan: VTE prophylaxis - Lovenox 40 mg subcu daily Diet - regular easy to chew diet Disposition - stable for transfer to PCU Admission and Anticipated Discharge Date Admission Date: December 23, 2020 Subjective Patient extubated. Alert and orientated. Reports just going to work and doesn't remember much after that. He was cutting down alcohol but did not mean to abstain completely. Tongue still swollen with some difficulty eating but no difficulty breathing. Eating well this morning. No nausea or vomiting. No chest pain. He reports anxiety and mild tremors but appears calm in bed. Review of Systems Review of Systems: All systems reviewed & are unremarkable except as noted in HPI & below Physical Exam Constitutional: + obese Eyes: PERRL, conjunctivae normal, anicteric sclerae ENMT: Mouth: + dry oral mucous membranes Neck: trachea midline, no thyromegaly Respiratory: normal respiratory effort, lungs clear to auscultation normal respiratory effort Auscultation: + diminished lung sounds (throughout); no crackles and no wheezes Cardiovascular: Rate/Rhythm: regular rate and regular rhythm Heart Sounds: normal S1 and normal S2 Extremities: normal capillary refill and + pedal edema (Trace bilateral ankles); no calf tenderness and no edema Gastrointestinal (Abdomen): normal bowel sounds, soft, nontender, no hepatos plenomegaly Skin: no rashes, warm and dry Neurologic: moves all extremities and awake; no focal motor deficits (no lateralizing deficit) and not confused Results & Data Results & Data ([facility]) Vital Signs (Past 12 Hours) Vital Signs Temp Pulse Pulse Resp BP BP Pulse Ox 12/27/20 09:40 37.5 C 86 18 157/95 H 94 12/27/20 08:40 37.6 C H 87 17 162/95 H 95 12/27/20 07:40 38 C H 101 H 18 149/96 H 95 12/27/20 06:00 38.3 C H 100 H 19 144/87 H 100 12/27/20 05:00 38.0 C H 94 H 19 185/114 H 94 12/27/20 04:00 37.9 C H 99 H 20 171/94 H 95 12/27/20 03:45 37.8 C H 94 H 19 154/86 H 93 12/27/20 03:30 37.7 C H 91 H 16 93 12/27/20 03:15 37.6 C H 88 17 93 12/27/20 03:00 37.5 C 86 21 93 12/27/20 02:45 37.5 C 86 17 95 12/27/20 02:30 37.6 C H 89 18 97 12/27/20 02:15 37.6 C H 80 15 100 12/27/20 02:00 37.5 C 79 17 164/87 H 100 12/27/20 01:00 37.6 C H 79 15 170/118 H 100 12/27/20 00:00 37.5 C 80 15 173/116 H 100 12/26/20 23:45 87 12/26/20 23:00 37.6 C H 80 15 165/116 H 100 PG Care Time/CCT Total # of Minutes Spent Total Time Spent with Patient: Total time spent is greater than 50% in coordination of care (as documented) at patient's floor/unit and/or counseling patient: Coding Level of Care Code 46559 Subseq Hosp Care Lvl 3 Diagnoses Alcohol withdrawal seizure F10.239; R56.9 Complication of substance-induced condition: with unspecified complication Delirium tremens F10.231 Fever R50.9 Hyponatremia E87.1 BESSIE (acute kidney injury) N17.9 Hypokalemia E87.6 HTN (hypertension), benign I10 Opioid use disorder F11.90 Alcohol use disorder Alcoholic hepatitis K70.10 Metabolic encephalopathy G93.41 Hypophosphatemia E83.39 (1) Alcohol withdrawal seizure Complication of substance-induced condition: with unspecified complication Qualified Code(s): F10.239 - Alcohol dependence with withdrawal, unspecified; R56.9 - Unspecified convulsions
[2020-12-27] MEDS: chlordiazePOXIDE HCl 25 MG CAP PO SCH ×3 (10:58→22:01)
--- NOTE | 2020-12-27 11:12 | Billing Data ---
Date of Service December 27, 2020 Coding Level of Care Code 78789 Subseq Hosp Care Lvl 2
[2020-12-27] MEDS: AMOXICILLIN/CLAVULANATE 875 MG TAB PO SCH ×2 (12:18→16:57)
[2020-12-27] MEDS: ENOXAPARIN INJ 40 MG/0.4 ML SYR SQ SCH (19:59)
[2020-12-28] MEDS: chlordiazePOXIDE HCl 25 MG CAP PO SCH ×3 (04:06→18:09)
[2020-12-28 05:34] LABS: Basophils # (auto) 0.07 K/uL (0-0.2); Eosinophils # (auto) 0.25 K/uL (0-0.5); Eosinophils % (auto) 3.7 %; Hematocrit (blood only) 34.6 % (42-52); Hemoglobin 11.4 g/dL (14.0-18.0); Immature Granulocytes # (auto) 0.27 K/uL (0.00-0.02); Lymphocytes % (auto) 41.9 %; Mean Corpuscular Hgb Conc 32.9 g/dL (32-36); Mean Corpuscular Volume 97.2 fL (80-100); Mean Platelet Volume 10.9 fL (7.4-10.4); Monocytes # (auto) 1.28 K/uL (0.11-0.59); Monocytes % (auto) 19.2 %; Neutrophils # (auto) 2.01 K/uL (1.4-6.5); Neutrophils % (auto) 30.2 %; Platelet Count 259 K/uL (130-400); RDW Coefficient of Variation 13.2 % (11.5-14.5); RDW Standard Deviation 46.7 fL (36.4-46.3); Red Blood Count 3.56 M/uL (4.7-6.1); White Blood Count 6.68 K/uL (4.8-10.8)
[2020-12-28 06:01] LABS: Albumin Level 2.5 gm/dl (3.4-5.0); BUN Creatinine Ratio 6.1 (10-20); Creatinine Clr Calc Pharmacy 159.5 ml/min; Est GFR (African American) 131.9 ml/min; Est GFR (Non-African American) 113.8 ml/min; Magnesium 2.1 mg/dl (1.8-2.4)
[2020-12-28 06:05] LABS: Albumin Globulin Ratio 0.6 (0.9-2); Bilirubin,Total 0.9 mg/dl (0.2-1); Globulin 4.5 gm/dl (2.5-4.0); Phosphorus 3.3 mg/dl (2.5-4.9)
[2020-12-28] MEDS: NICOTINE 21 MG/24 HR TDSY TD SCH (06:44)
[2020-12-28] MEDS: AMOXICILLIN/CLAVULANATE 875 MG TAB PO SCH ×2 (08:15→18:09)
[2020-12-28] MEDS: FOLIC ACID 1 MG TAB PO SCH (08:15)
[2020-12-28] MEDS: lisinopril 5 MG TAB PO SCH (08:15)
[2020-12-28] MEDS: MULTIVITAMIN TAB PO SCH (08:15)
[2020-12-28] MEDS: THIAMINE HCL 200 MG in SODIUM CHLORIDE 0.9% 50 ML IV SCH (08:16)
[2020-12-28] MEDS: BUPRENORPHINE/NALOXONE 8/2 MG TAB SL SCH ×2 (08:17→20:47)
--- NOTE | 2020-12-28 08:34 | Hospitalist Progress Note ---
Date of Service December 28, 2020 Assessment & Plan (1) Alcohol withdrawal seizure: Plan: vs seizure due to hyponatremia. Ethanol level negative on admission. Last drink was reportedly 4:00 AM on 12/23. CT head negative at admission. Has h/o DTs requiring high doses of IV Ativan, Precedex drip, phenobarbital, and Librium. Precedex and phenobarbital now discontinued Continues on a librium taper. Due to concerns of airway protection in the setting of an enlarged tongue/bite rogers/bleeding he was intubated by Dr Ray on 12/23. Extubated 12/26. Working with case management to determine post hospital care -most likely will opt for outpatient rehab We will ambulate the patient on the floor today and follow-up for tachyarrhythmias. (2) Delirium tremens: Plan: As above. Patient now downgraded to telemetry status. Remain on telemetry secondary to tachyarrhythmias. (3) Fever: Plan: Blood/sputum/urine cultures with no growth to date/normal sherine Day number 6 of antibiotics. Initially started on Unasyn and now converted to Augmentin. Chest x-ray with right lower lobe opacity concerning for aspiration pneumonia Procalcitonin minimally elevated. Now afebrile (4) Hyponatremia: Plan: Sodium 118 on arrival and now 132 Cannot rule out hyponatremia-induced seizure. Suspected beer potomania. BESSIE may have contributed as well. Follow serial labs Encourage oral intake (5) BESSIE (acute kidney injury): Plan: Creatinine 2.6 at presentation. Now resolved and 0.82 Restarted on home dose of lisinopril 5 mg p.o. daily (6) Hypokalemia: Plan: Resolved Follow serial labs (7) HTN (hypertension), benign: Plan: Lisinopril 5 mg p.o. daily restarted (home dose) Continue to follow on telemetry Vital signs per protocol (8) Opioid use disorder: Plan: Continue home Suboxone 8 mg twice daily. Patient not complaining of any other pain at this time. (9) Alcohol use disorder: Plan: He recently cut his alcohol use. However, he previously was drinking the equivalent of 20 alcoholic beverages daily. Etoh level negative upon ER presentation. Case management helping to coordinate outpatient rehab (10) Alcoholic hepatitis: Plan: supportive care Ammonia level has normalized at 13 LFTs continue to improve (11) Metabolic encephalopathy: Plan: 2nd to etoh withdrawal/DTs, hyponatremia, etc. +/- aspiration PNA Ammonia 13 - non-contributory Encephalopathy appears to be resolved (12) Hypophosphatemia: Plan: replacement ordered per ICU protocol. Now within normal limits at 3.3 Plan: VTE prophylaxis - Lovenox 40 mg subcu daily Diet - regular easy to chew diet Should be medically ready for discharge in the next day or so Admission and Anticipated Discharge Date Admission Date: December 23, 2020 Supervising Physician Co-Signing Physician Notes Patient seen and examined, chart reviewed, case discussed with Nick Mei PA-C and I agree with the assessment and plan as above except as otherwise noted above. Doing well, remains tremoulous on exam and tachycardic worsened with exertion. S uspect improving withdrawal sx. Discussed with patient, he understands he would benefit from inpt treatment but does not believe he can manage this with 'life and bills.' Would like to pursue followup outpt treatment at [facility]. CM on board to help facilitate. Recommend watching overnight giving continued tachycardia and tremulousness, continue libruim taper, progressing towards d/c. General: A&Ox3. Tremoulous. No AH/VH. Not responding to internal stimuli. TP linear, goal directed. HEENT: L forehead healing abrasion, otherwise atraumatic, normocephalic. Visual acuity and hearing grossly intact. Pulm: CTAB A&P. -wheezes, -rales, -rhonchi. Symmetrical chest rise. No increase work of breathing. No respiratory distress. Cardiac: Tachycardic, regular -mrg. Radial pulses intact and symmetrical. Abdominal: Nontender, nondistended, soft. BS present. All labs and images reviewed Subjective Attending: Dr. Baxter Patient seen and examined at bedside. He has some tachycardia with minimal exertion. He denies any shortness of breath or chest pain. He does have some minimal tremor. He denies any nausea or vomiting. He has no diarrhea. He is willing to discuss options for inpatient versus outpatient rehab for alcohol abuse and history of substance abuse. The patient has no other acute complaints. Review of Systems Review of Systems: All systems reviewed & are unremarkable except as noted in Subjective Physical Exam Physical Exam: GENERAL : No acute distress EYES: No icterus, gaze conjugate NOSE: No evidence of epistaxis MOUTH: No lesions or candidiasis NECK: Supple LUNGS: CTA B/L, no wheezes, rales or rhonchi HEART: Regular, tachycardic in the low 100s at rest. Heart rate in the 120s with exertion ABDOMEN: Soft, NT, ND, BS Present EXTREMITIES: No LE edema, pedal pulses intact NEURO: A&OX3. Some ataxia. Slight slur to speech. No other neurological deficits identified. Results & Data Results & Data ([place]) Vital Signs (Past 12 Hours) Vital Signs Temp Pulse Resp BP Pulse Ox 12/28/20 07:55 37.3 C 95 H 15 150/111 H 98 12/28/20 03:13 37.1 C 99 H 16 169/111 H 96 12/27/20 23:40 37.5 C 92 H 19 160/105 H 99 Laboratory Results 12/28/20 04:57 12/28/20 04:57 Laboratory Tests 12/26/20 04:44 Ammonia 13.0 Laboratory Tests 12/28/20 04:57 Phosphorus 3.3 D Diagnostic Findings No additional findings PG Care Time/CCT Total # of Minutes Spent Total Time Spent with Patient: Total time spent is greater than 50% in coordination of care (as documented) at patient's floor/unit and/or counseling patient: 30 minutes over 2 visits today Coding Level of Care Code 08980 Subseq Hosp Care Lvl 2 Diagnoses Alcohol withdrawal seizure F10.239; R56.9 Complication of substance-induced condition: with unspecified complication Delirium tremens F10.231 Fever R50.9 Hyponatremia E87.1 BESSIE (acute kidney injury) N17.9 Hypokalemia E87.6 HTN (hypertension), benign I10 Opioid use disorder F11.90 Alcohol use disorder Alcoholic hepatitis K70.10 Metabolic encephalopathy G93.41 Hypophosphatemia E83.39 Time Spent (min) 30 (1) Alcohol withdrawal seizure Complication of substance-induced condition: with unspecified complication Qualified Code(s): F10.239 - Alcohol dependence with withdrawal, unspecified; R56.9 - Unspecified convulsions
[2020-12-28] MEDS: ENOXAPARIN INJ 40 MG/0.4 ML SYR SQ SCH (20:46)
[2020-12-29] MEDS: chlordiazePOXIDE HCl 25 MG CAP PO SCH ×2 (02:04→10:03)
[2020-12-29 05:59] LABS: BUN Creatinine Ratio 5.4 (10-20); Calcium 9.2 mg/dl (8.5-10.1); Creatinine Clr Calc Pharmacy 145.3 ml/min; Est GFR (African American) 126.9 ml/min; Est GFR (Non-African American) 109.5 ml/min; Magnesium 1.9 mg/dl (1.8-2.4)
[2020-12-29] MEDS: AMOXICILLIN/CLAVULANATE 875 MG TAB PO SCH (07:51)
[2020-12-29] MEDS: NICOTINE 21 MG/24 HR TDSY TD SCH (07:51)
[2020-12-29] MEDS: FOLIC ACID 1 MG TAB PO SCH (07:52)
[2020-12-29] MEDS: MULTIVITAMIN TAB PO SCH (07:52)
[2020-12-29] MEDS: lisinopril 5 MG TAB PO SCH (07:52)
[2020-12-29] MEDS: BUPRENORPHINE/NALOXONE 8/2 MG TAB SL SCH (07:55)
[2020-12-29] MEDS: THIAMINE HCL 200 MG in SODIUM CHLORIDE 0.9% 50 ML IV SCH (07:56)
--- NOTE | 2020-12-29 16:24 | Discharge Summary ---
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 As per ER physician's report, witnesses reported 10 minutes of seizure activity and postictal period. He did have evidence of tongue biting and remained confused and delirious when I saw him upon admission in the ER. He had no further seizure activity in the ER but was given a total of 3 mg of IV Ativan for evidence of alcohol withdrawal. He reported to me that his last drink was on 4 AM on 12/23. He reports that he typically drinks 10 small bottles of fireball alcohol daily which are each about 1.4 ounces of 40% alcohol, in addition to 5 cans of "double strength" Hermes's hard lemonade which is 8% alcohol approximately. This is the equivalent of 20 drinks per day. He reports that about 6 days ago he cut his number of drinks and half down to 5 bottles of fireball and 2 cans of Hermes's hard lemonade. His alcohol level on arrival was undetectable and his urine drug screen was negative. He was noted to be severely hyponatremic with a sodium of 118, and with acute kidney injury with a creatinine of 2.6. He was tachycardic and hypertensive and afebrile. A CT of the head was negative for acute disease as was a chest x-ray. Review of previous hospital admission from 09/2020 shows that he had refractory delirium tremens requiring very large doses of IV Ativan, ICU admission with Precedex drip, followed by phenobarbital as well as Librium. Finally on day 11 of that admission, he left the hospital AGAINST MEDICAL ADVICE. Patient reports to me today that he is committed to quitting drinking alcohol and would like to stay for detoxification, however he states "I will stay overnight tonight." Mostly, he confabulates about multiple things unrelated to ongoing acute issues. I discussed his care with the director funds development, Dr. Mcclure, and we decided to load him with IV phenobarbital given his seizure and ongoing delirium tremens and history of refractory DTs requiring ICU admission in addition to his severe hyponatremia. Admission Exam Per Admitting Provider Constitutional: WD/WN, vitals as above + lethargic (Intermittently) Eyes: PERRL, conjunctivae normal, anicteric sclerae ENMT: Ears: no hearing impairment Nose: no external nose abnormality and no nasal discharge Mouth: + tongue abnormality (Bilateral tongue with bite rogers on the edge, no active bleeding) Neck: trachea midline, no thyromegaly Respiratory: normal respiratory effort, lungs clear to auscultation Cardiovascular: Rate/Rhythm: regular rhythm and + tachycardic Heart Sounds: no murmur Extremities: no calf tenderness and no edema Chest (Breasts): Chest: normal inspection of chest Gastrointestinal (Abdomen): normal bowel sounds, soft, nontender, no hepatosplenomegaly Musculoskeletal: Extremities: extremities normal to inspection; no cyanosis and no clubbing Skin: no rashes, warm and dry Neurologic: CN's II-XI intact bilaterally, moves all extremities, awake and + confused; no focal motor deficits Speech / Cognition: normal speech Motor/Sensory: + tremor; no sensory deficit Psychiatric: Orientation: alert, oriented to person, oriented to place and cooperative Apperance: + disheveled Eye Contact: + fair eye contact Motor Behavior: + psychomotor agitation Affect: + anxious affect Thought Process: + confabulations Lymphatic: no lymphedema Principal Diagnosis Alcohol withdrawal Discharge Exam General: A&Ox3. NAD. Cooperative. Trace resting tremor bilaterally, improved from prior, no exaggeration on extension. HEENT: Atraumatic, normocephalic. Visual acuity and hearing grossly intact. Pulm: CTAB A&P. -wheezes, -rales, -rhonchi. Symmetrical chest rise. No increase work of breathing. No respiratory distress. Cardiac: Remotely tachycardic, regular, -mrg. Radial pulses intact and symmetrical. Abdominal: Nontender, nondistended, soft. BS present. Extremities: Moving all extremities equally. Sensation intact to soft touch in hands and feet. Extremity strength grossly intact and symmetrical. Discharge Data Allergies Allergy/AdvReac Type Severity Reaction Status Date / Time No Known Allergies Allergy Unverified 12/23/20 15:05 Consultations 12/23/20 14:53 ED Decision to Admit Stat 12/23/20 19:41 Consult [employer] Routine Ordered Studies 12/23/20 12:44 CT head/brain wo con Stat 12/23/20 21:00 US point of care ultrasound Urgent Hospital Course (1) Alcohol withdrawal seizure: Tomás Cueva is a 35-year-old male with a past medical history of alcohol use disorder who was admitted for acute alcohol withdrawal with delirium tremens and seizure. Seizure 2/2 acute alcohol withdrawal, with delirium tremens Hyponatremic on admission, alcohol level negative on admission. - Last drink was reportedly 4:00 AM on 12/23. - CT head negative at admission. - Has h/o DTs requiring high doses of IV Ativan, Precedex drip, phenobarbital, and Librium. Patient treated with Precedex drip, phenobarb, transition to Librium taper - Due to concerns of airway protection in the setting of an enlarged tongue/bite rogers/bleeding he was intubated by Dr Ray on 12/23. Extubated 12/26. Clinically improved, was discharged to complete 1 additional dose of Librium taper Alcohol cessation and support resources discussed extensively with patient by provider team and case management. Provided with inpatient and outpatient options. Patient initially agreeable to inpatient, defer to outpatient follow- up due to financial concerns and work concerns at time of discharge. Patient was set up with [facility] for follow-up at discharge. PCP follow-up including at the [facility] clinic was offered to patient, this was declined by the patient and he expressed that he preferred to look for his own provider and had a list of providers that he thinks should be okay with his insurance. Declined assistance facilitating this set up at time of discharge. At time of discharge patient was ambulating well with heart rate less than 100 (2) Delirium tremens: As noted above, treated as noted alcohol withdrawal seizure (3) Fever: Blood/sputum/urine cultures with no growth to date/normal sherine Completed Unasyn converted to Augmentin course during admission, no indication for additional antibiotics at discharge Chest x-ray with right lower lobe opacity concerning for aspiration pneumonia Procalcitonin minimally elevated. Afebrile for more than 24 hours at time of discharge (4) Hyponatremia: Sodium 118 on arrival up trended to 134 at discharge Cannot rule out hyponatremia-induced seizure. Suspected beer potomania. BESSIE may have contributed as well. Recommended the patient follow-up with PCP and have a repeat BMP within 1 week, patient declined to have this facilitated but reported he would follow-up with PCP on his own (5) BESSIE (acute kidney injury): Creatinine 2.6 at presentation. Normalized during admission Restarted on home dose of lisinopril 5 mg p.o. daily (6) Hypokalemia: Resolved (7) HTN (hypertension), benign: Lisinopril 5 mg p.o. daily restarted (home dose) Continue to follow on telemetry Vital signs per protocol (8) Opioid use disorder: Continue home Suboxone 8 mg twice daily. Patient not complaining of any other pain at time of admission (9) Alcohol use disorder: He recently cut his alcohol use. However, he previously was drinking the equivalent of 20 alcoholic beverages daily. Etoh level negative upon ER presentation. Outpatient rehab resources as noted above (10) Alcoholic hepatitis: supportive care Ammonia level normalized at 13 LFTs continue to improve Recommended outpatient follow-up/GI follow-up. Patient declined this, reported he was set up his own PCP as noted above (11) Metabolic encephalopathy: 2nd to etoh withdrawal/DTs, hyponatremia, etc. +/- aspiration PNA Ammonia 13 - non-contributory Encephalopathy appears resolved (12) Hypophosphatemia: replacement ordered per ICU protocol. Normalized during admission Lovenox 40 mg daily for DVT prophylaxis, no signs of DVT during admission Total Time Total Time Spent Total Time Spent (In Minutes): Total time spent approximately 35 minutes on day of discharge including direct patient care, facilitation of care, review of labs and images, documentation Discharge Plan Discharge Items Patient Disposition: Home - Self-Care Reason For Visit: SEIZURE, ETOH WITHDRAWAL, HYPONATREMIA Discharge Diagnosis: EtoH Withdrawal Activity: Resume your previous activity Non-emergency contact: Primary Care Provider Call non-emergency contact if: you have any medication questions, your symptoms worsen and you have a fever Follow-up/Referrals: PCP,NO [Primary Care Provider] - Diet: Regular Addtl Attending Provider Instructions: You were seen in the hospital for acute alcohol withdrawal. You recovered well, and were discharged on a Librium taper. Inpatient and outpatient alcohol withdrawal resources were discussed with you during admission, unsure decision making you are being discharged to outpatient follow-up at [facility] and will consider inpatient in the future if needed. You are provided with information on [facility], [facility], and [facility] facilities. You had nearly completed a Librium taper at time of discharge. In order to complete this taper please take Librium at 10 mg please take chlordiazepoxide 10 mg in the evening of 12/29. Librium has a long half-life and will gradually wear off over the next week. If you experience return of withdrawal symptoms including tremors, fast heart rate, hallucinations, seizures, sweats, or other new/concerning symptoms please contact your primary care provider, [facility], or call 911 for reevaluation in the emergency department if you are very concerned. Your electrolytes were abnormal during admission, these were repleted and normal at time of admission. You had a slight increase in your liver enzymes, this is likely due to alcohol use. It is recommended that you follow-up with your primary care provider as an outpatient for additional monitoring and care. It is critically important to abstain from alcohol and remain sober. Alcohol withdrawal can worsen with increased alcohol use over time, may cause symptoms such as hallucinations, tremors, abnormal heart rhythms, and seizures and is a life-threatening process every time you go through it. If you develop any new or worsening symptoms including fever, chills, sweats, chest pain, chest pressure, difficulty breathing, uncontrolled nausea/vomiting, rash, wheezing, passing out or nearly passing out, bleeding, black/bloody bowel movements, or other new or concerning symptoms please call your primary care physician, or call 911 for re-evaluation in the emergency department if you are very concerned. Pending Studies at Discharge: No Stand-Alone Forms: My [facility] Phigital, Smoking Cessation Medications and DC Order Prescriptions: New chlordiazepoxide HCl 10 mg capsule 10 mg PO ONCE Qty: 1 RF: 0 Continued lisinopril 5 mg tablet 5 mg PO QAM RF: 0 buprenorphine-naloxone 8-2 mg tablet, sublingual 1 tab SUBLINGUAL BID RF: 0 Discharge Orders: Discharge Order (Routine); Ordered 12/29/20 Ordered By: Pedro Baxter Admission Data Admit Date/Time: 12/23/20 17:22 Attending Provider: Pedro Baxter Admit Provider: Andressa Lai Primary Care Provider: PCP,NO Other Providers: Andressa Lai ; Tom Ray Other Interventions: Discharge Summary Assessment (RN) Last Done: 12/29/20 09:45 Coding Level of Care Code D/C DAY MANAGEMENT >30 MINS Diagnoses Alcohol withdrawal seizure F10.239; R56.9 Complication of substance-induced condition: with unspecified complication Delirium tremens F10.231 Fever R50.9 Hyponatremia E87.1 BESSIE (acute kidney injury) N17.9 Hypokalemia E87.6 HTN (hypertension), benign I10 Opioid use disorder F11.90 Alcohol use disorder Alcoholic hepatitis K70.10 Metabolic encephalopathy G93.41 Hypophosphatemia E83.39
== END 2020-12-29 10:29 | disposition home or self-care (01) | DRG 896 ==
LOC: ED 11:52 → 1E 17:22 → SUATTDRO 17:22 → 1E 19:23

== ENCOUNTER 2021-03-11 16:21 | Inpatient (IN) ==
[2021-03-11] MEDS ORDERED: LORazepam 2 MG/4 ML VIAL IV STA ×2 (16:50→18:02)
[2021-03-11] MEDS ORDERED: MULTI-VITAMIN INFUSION 10 ML, THIAMINE HCL 100 MG, FOLIC ACID 1 MG in SODIUM CHLORIDE 0... IV ONE (16:50)
[2021-03-11] MEDS ORDERED: GABAPENTIN 1200MG ALCOHOL WITHDRAWAL LOAD PO STA (16:59)
[2021-03-11] MEDS ORDERED: GABAPENTIN 600 MG TAB PO ONE (16:59)
[2021-03-11] MEDS ORDERED: SODIUM CHLORIDE 0.9% 1000ML 1,000 ML IV SCH (17:00)
--- NOTE | 2021-03-11 17:07 | Emergency Department Note ---
Impression & Plan Alcohol withdrawal seizure, High serum osmolar gap, Elevated lactic acid level (Ruled Out): Engages in vaping ED Provider Note CHIEF COMPLAINT: Seizure HISTORY OF PRESENT ILLNESS: This 35-year-old male patient presents to the emergency department with complaints of seizure today. Patient states he slipped and fell while at work at [employer] and subsequently had a seizure. This was a witnessed event. Bystanders told EMS that the patient had a similar event 1 month ago but refused care at that time. Patient is a known alcoholic and states he is trying to cut back on his alcohol intake. He states he was drinking 1/5 of hard alcohol daily until he was admitted here in December. He has been trying to cut back but still drinks "a sixpack of Hermes's hard lemonade, 2-3 tall boys and small bottles of Fireball every hour or so." Patient states he believes he was at work too long today which caused the seizure. He is not able to drink while he is at work. He states he has never been to a rehab facility. He has been drinking for many years but believes it escalated when he was about the age of 29. Of note, pt is also on suboxone BID. REVIEW OF SYSTEMS: A review of systems was performed with positives and pertinent negatives listed in the history of present illness. 10 systems were reviewed and are otherwise negative. ALLERGIES: see below MEDICATIONS: see below PMH: see below SOCIAL HISTORY: see below DDx: Epilepsy, ETOH w/d, hypoglycemia, electrolyte abnormalities, cardiac sources, intracerebral event, trauma, toxicologic, neurologic, syncope, as well as other pathologies. PHYSICAL EXAM: Vital signs reviewed. General: Disheveled, jittery 35-year-old male in some discomfort. Poor overall hygiene HEENT: No scleral icterus, PERRLA, neck supple. Poor dentition, dry mucous membranes, tobacco remnants in the mouth Cardiovascular: Tachycardic but regular, no extra sounds Pulmonary: Clear to auscultation bilaterally, normal work of breathing. Abdomen: Soft, nontender, nondistended, positive bowel sounds. Musculoskeletal: Atraumatic, no peripheral edema. Neurologic: Patient awake alert and oriented x 3 Skin: Warm, dry, no rash EMERGENCY DEPARTMENT COURSE/MDM: This patient was evaluated and appeared to be in no significant distress. IV access was obtained and laboratory work was drawn. Patient was placed on the environmental monitoring specialist and noted to be in sinus tachycardia. He is also noted to be hypertensive. Patient was medicated with IV Ativan, given a banana bag. Blood alcohol level is 4.6. IV NSS was administered. Pt did require several more doses of benzodiazepines. Head CT and chest x-ray are negative for acute pathology. Lactate is noted to be markedly elevated at 10 which is likely combination of dehydration and seizure. Patient was started on the gabapentin oral load. He seems to have an understanding of the severity of his illness, at least at this point in time. He is willing to be admitted for alcohol withdrawal seizure. Patient's case was discussed with the hospitalist service who will evaluate the patient for admission and further management. MONITORING: An order for cardiac monitoring was placed and the patient is noted to be in a sinus tachycardia at 144 beats per minute. RADIOLOGY: See below EKG: Sinus tachycardia 136 bpm. Prolonged QTc interval at 602. No PVC, no PAC. No acute ST segments changes. I have personally spent 45 minutes of critical care time in the direct management of this patient. This was a life/limb threatening event. This 45 minutes is in excess of all separately billable procedures. DISPOSITION: admit Past Med/Surg History Medical History Alcohol use disorder Bilateral pneumonia HTN (hypertension), benign Opioid use disorder Surgical History No pertinent past surgical history Family History Other No pertinent family history Social History Smoking Status: Current every day smoker Tobacco Type: Cigarettes Second Hand Exposure: Yes; Hx Alcohol Use: Yes Alcohol type: hard liquor Hx Substance Use: Yes Prescribed Medications: Painkillers Preferred Language: Peruvian Communication Ability: Effective Drafter Electronic Required: No Beliefs That Will Affect Care: None marital status: Single Current Living Situation: Alone Feels Safe at Home: Yes Assistive Devices: None Allergies Allergies Allergy/AdvReac Type Severity Reaction Status Date / Time No Known Allergies Allergy Unverified 03/11/21 16:50 Home Meds Home Medications Medication Instructions Recorded Confirmed buprenorphine 8 mg-naloxone 2 mg 1 tab SUBLINGUAL BID 09/04/20 03/11/21 sublingual tablet lisinopril 5 mg tablet 5 mg PO QAM 12/23/20 03/11/21 Previous Rx's Medication Instructions Recorded chlordiazepoxide HCl 25 mg capsule 25 mg PO HS #3 cap 03/13/21 folic acid 1 mg tablet 1 mg PO DAILY #30 tab 03/13/21 thiamine HCl (vitamin B1) 100 mg 100 mg PO DAILY #30 tab 03/13/21 tablet Results & Data (ED) Vital Signs Vital Signs - 24 hr 03/11/21 16:20 03/11/21 16:27 Temperature 37.4 C Temperature Source Oral Pulse Rate 144 H Pulse Rate [Apical] 128 H Respiratory Rate 22 18 Respiratory Effort / Characteristics Non-Labored Non-Labored Spontaneous Respiratory Depth Normal Normal Respiratory Pattern Regular Blood Pressure 112/76 Blood Pressure [Right Arm] 141/88 H Blood Pressure Mean 88 Blood Pressure Mean [Right Arm] 105 Pulse Oximetry 97 98 Oxygen Delivery Method Room Air Room Air Sepsis Recent Fever Within 48 Hours No Sepsis New/Unexplained Change in Mental Status No Sepsis Action Taken by Nursing No Action Required Home Medications Current Medication List: was personally reviewed by me Laboratory Data Attestation: I reviewed the patient's lab results. Result diagrams: 03/13/21 06:55 03/13/21 06:55 Lab Results 03/11/21 03/11/21 03/11/21 Range/Units 16:30 16:30 17:06 WBC 3.64 L (4.8-10.8) K/uL RBC 4.49 L (4.7-6.1) M/uL Hgb 14.2 (14.0-18.0) g/dL Hct 41.9 L (42-52) % MCV 93.3 (80-100) fL MCH 31.6 (25-34) pg MCHC 33.9 (32-36) g/dL RDW Std Deviation 50.5 H (36.4-46.3) fL RDW Coeff of Desiree 14.8 H (11.5-14.5) % Plt Count 42 L (130-400) K/uL MPV 12.1 H (7.4-10.4) fL Immature Gran % (Auto) 0.3 % Neut % (Auto) 58.0 % Lymph % (Auto) 32.1 % [place] % (Auto) 9.1 % Eos % (Auto) 0.0 % Baso % (Auto) 0.5 % Neut # (Auto) 2.11 (1.4-6.5) K/uL Lymph # (Auto) 1.17 L (1.2-3.4) K/uL [place] # (Auto) 0.33 (0.11-0.59) K/uL Eos # (Auto) 0.00 (0-0.5) K/uL Baso # (Auto) 0.02 (0-0.2) K/uL Immature Gran # (Auto) 0.01 (0.00-0.02) K/uL Platelet Estimate Decreased L (Normal) RBC Morphology Unremarkable Sodium 132 L (136-145) mmol/L Potassium (3.5-5.1) mmol/L Chloride 93 L (98-107) mmol/L Carbon Dioxide 20 L (21-32) mmol/L Anion Gap 19.0 H (3-11) BUN 5 L (7-18) mg/dl Creatinine 1.30 (0.6-1.4) mg/dl Est Cr Clr Drug Dosing 98.2 ml/min Est GFR ( Amer) 81.4 ml/min Est GFR (Non-Af Amer) 70.2 ml/min BUN/Creatinine Ratio 3.5 L (10-20) Glucose 174 H (70-99) mg/dl Lactate 10.6 H* (0.4-2.0) mmol/L Calcium 10.2 H (8.5-10.1) mg/dl Phosphorus 2.9 (2.5-4.9) mg/dl Magnesium (1.8-2.4) mg/dl Total Bilirubin 1.0 (0.2-1) mg/dl AST (15-37) U/L ALT 98 H (12-78) Alkaline Phosphatase 164 H D (45-117) U/L Total Creatine Kinase (39-308) U/L Total Protein 8.6 H (6.4-8.2) gm/dl Albumin 3.8 (3.4-5.0) gm/dl Globulin 4.8 H (2.5-4.0) gm/dl Albumin/Globulin Ratio 0.8 L (0.9-2) Specimen Hemolysis Ethyl Alcohol mg/dL (0-3) mg/dl SARS-CoV-2, RNA, NAAT (NEGATIVE) 03/11/21 03/11/21 03/11/21 Range/Units 17:06 17:06 20:05 WBC (4.8-10.8) K/uL RBC (4.7-6.1) M/uL Hgb (14.0-18.0) g/dL Hct (42-52) % MCV (80-100) fL MCH (25-34) pg MCHC (32-36) g/dL RDW Std Deviation (36.4-46.3) fL RDW Coeff of Desiree (11.5-14.5) % Plt Count (130-400) K/uL MPV (7.4-10.4) fL Immature Gran % (Auto) % Neut % (Auto) % Lymph % (Auto) % [place] % (Auto) % Eos % (Auto) % Baso % (Auto) % Neut # (Auto) (1.4-6.5) K/uL Lymph # (Auto) (1.2-3.4) K/uL [place] # (Auto) (0.11-0.59) K/uL Eos # (Auto) (0-0.5) K/uL Baso # (Auto) (0-0.2) K/uL Immature Gran # (Auto) (0.00-0.02) K/uL Platelet Estimate (Normal) RBC Morphology Sodium (136-145) mmol/L Potassium 2.8 L (3.5-5.1) mmol/L Chloride (98-107) mmol/L Carbon Dioxide (21-32) mmol/L Anion Gap (3-11) BUN (7-18) mg/dl Creatinine (0.6-1.4) mg/dl Est Cr Clr Drug Dosing ml/min Est GFR ( Amer) ml/min Est GFR (Non-Af Amer) ml/min BUN/Creatinine Ratio (10-20) Glucose (70-99) mg/dl Lactate (0.4-2.0) mmol/L Calcium (8.5-10.1) mg/dl Phosphorus (2.5-4.9) mg/dl Magnesium 1.6 L (1.8-2.4) mg/dl Total Bilirubin (0.2-1) mg/dl AST 395 H (15-37) U/L ALT (12-78) Alkaline Phosphatase (45-117) U/L Total Creatine Kinase 413 H (39-308) U/L Total Protein (6.4-8.2) gm/dl Albumin (3.4-5.0) gm/dl Globulin (2.5-4.0) gm/dl Albumin/Globulin Ratio (0.9-2) Specimen Hemolysis Ethyl Alcohol mg/dL 4.6 H (0-3) mg/dl SARS-CoV-2, RNA, NAAT NEGATIVE (NEGATIVE) Administered Medications Discontinued Medications Acetaminophen (Acetaminophen 325 Mg Tab) 650 mg PO Q4H PRN PRN Reason: Pain or Fever Stop: 04/10/21 22:59 Last Admin: 03/11/21 23:38 Dose: 650 mg Documented by: [id number] Amlodipine Besylate (Amlodipine Besylate 5 Mg Tab) 5 mg PO NOW ONE Stop: 03/12/21 18:19 Last Admin: 03/12/21 18:38 Dose: 5 mg Documented by: [id number] Buprenorphine/Naloxone (Buprenorphine/Naloxone 8/2 Mg Tab) 1 tab SL BID BRENDA Stop: 04/10/21 23:14 Last Admin: 03/13/21 09:47 Dose: 1 tab Documented by: [id number] Admin: 03/12/21 20:41 Dose: 1 tab Documented by: [id number] Admin: 03/12/21 08:48 Dose: 1 tab Documented by: [id number] Admin: 03/11/21 23:38 Dose: 1 tab Documented by: [id number] Chlordiazepoxide HCl (Chlordiazepoxide Hcl 25 Mg Cap) 50 mg PO Q8H BRENDA; Taper Stop: 03/14/21 22:59 Last Admin: 03/13/21 09:48 Dose: Not Given Documented by: [id number] Admin: 03/12/21 23:37 Dose: 50 mg Documented by: [id number] Admin: 03/12/21 16:45 Dose: 50 mg Documented by: [id number] Admin: 03/12/21 11:58 Dose: 50 mg Documented by: [id number] Admin: 03/12/21 05:32 Dose: 50 mg Documented by: [id number] Admin: 03/12/21 00:00 Dose: 50 mg Documented by: [id number] Clonidine HCl (Clonidine Hcl 0.1 Mg Tab) 0.1 mg PO NOW ONE Stop: 03/11/21 22:01 Last Admin: 03/11/21 22:23 Dose: 0.1 mg Documented by: [id number] Clonidine HCl (Clonidine Hcl 0.1 Mg Tab) 0.1 mg PO TID PRN PRN Reason: BP > 180/110 Stop: 04/10/21 22:59 Last Admin: 03/12/21 08:48 Dose: 0.1 mg Documented by: [id number] Clonidine HCl (Clonidine Hcl 0.1 Mg Tab) 0.1 mg PO BID BRENDA Stop: 04/11/21 20:59 Last Admin: 03/13/21 09:48 Dose: 0.1 mg Documented by: [id number] Admin: 03/12/21 20:41 Dose: 0.1 mg Documented by: [id number] Diazepam (Diazepam 5 Mg/Ml Inj 10ml Vial) 10 mg IV NOW STA Stop: 03/11/21 19:31 Last Admin: 03/11/21 20:02 Dose: 10 mg Documented by: [id number] Gabapentin (Gabapentin 1200mg Alcohol Withdrawal Load) 1 ea PO NOW STA; Protocol Stop: 03/11/21 17:00 Last Admin: 03/11/21 17:47 Dose: Not Given Documented by: [id number] Gabapentin (Gabapentin 600 Mg Tab) 1,200 mg PO NOW ONE Stop: 03/11/21 17:00 Last Admin: 03/11/21 17:47 Dose: 1,200 mg Documented by: [id number] Gabapentin (Gabapentin 600 Mg Tab) 600 mg PO Q6H BRENDA Stop: 03/12/21 05:01 Last Admin: 03/11/21 22:23 Dose: 600 mg Documented by: [id number] Sodium Chloride (Nss 1000ml) 1,000 mls @ 999 mls/hr IV .Q1H1M BRENDA Stop: 03/11/21 18:00 Last Infusion: 03/11/21 18:10 Dose: 0 mls/hr Documented by: [id number] Admin: 03/11/21 17:00 Dose: 999 mls/hr Documented by: [id number] Lorazepam (Ativan) 2 mg in 4 mls @ 4 mls/min IV NOW STA Stop: 03/11/21 16:51 Last Admin: 03/11/21 17:03 Dose: 4 mls/min Documented by: [id number] Multivitamins 10 ml/ Thiamine HCl 100 mg/ Folic Acid 1 mg/Sodium Chloride 1 ,011.2 mls @ 1,011.2 mls/hr IV .Q1H ONE Stop: 03/11/21 17:49 Last Infusion: 03/11/21 18:35 Dose: 0 mls/hr Documented by: [id number] Admin: 03/11/21 17:29 Dose: 1,011.2 mls/hr Documented by: [id number] Sodium Chloride (Nss 1000ml) 1,000 mls @ 999 mls/hr IV .Q1H1M ONE Stop: 03/11/21 19:01 Last Infusion: 03/11/21 22:13 Dose: 0 mls/hr Documented by: [id number] Admin: 03/11/21 19:55 Dose: 999 mls/hr Documented by: [id number] Lorazepam (Ativan) 2 mg in 4 mls @ 4 mls/min IV NOW STA Stop: 03/11/21 18:03 Last Admin: 03/11/21 18:11 Dose: 4 mls/min Documented by: [id number] Potassium Chloride (K Paco / Wtr) 10 meq in 100 mls @ 100 mls/hr IV Q1H BRENDA; Protocol Stop: 03/11/21 21:44 Last Infusion: 03/11/21 22:13 Dose: 0 mls/hr Documented by: [id number] Admin: 03/11/21 21:10 Dose: 100 mls/hr Documented by: [id number] Infusion: 03/11/21 21:10 Dose: 0 mls/hr Documented by: [id number] Admin: 03/11/21 20:01 Dose: 100 mls/hr Documented by: [id number] Magnesium Sulfate/Dextrose (Magnesium Sulfate / D5w) 1 gm in 100 mls @ 200 mls/hr IV Q30M BRENDA Stop: 03/11/21 20:31 Last Infusion: 03/11/21 20:30 Dose: 0 mls/hr Documented by: [id number] Admin: 03/11/21 20:00 Dose: 200 mls/hr Documented by: [id number] Lorazepam (Ativan) 1 mg in 2 mls @ 2 mls/min IV Q1H PRN; Protocol PRN Reason: Symptoms of alcohol withdrawal Stop: 04/10/21 21:44 Last Admin: 03/11/21 21:53 Dose: 2 mls/min Documented by: [id number] Lorazepam (Ativan) 1 mg in 2 mls @ 2 mls/min IV UD PRN; Protocol PRN Reason: EtOH Withdrawl AWSS Score 6,7 Stop: 04/10/21 22:59 Last Admin: 03/12/21 07:27 Dose: 2 mls/min Documented by: [id number] Admin: 03/12/21 02:29 Dose: 2 mls/min Documented by: [id number] Lorazepam (Ativan) 3 mg in 6 mls @ 4 mls/min IV ONCE PRN; Protocol PRN Reason: EtOH Withdrawl AWSS Score >=10 Stop: 04/10/21 22:59 Last Admin: 03/12/21 10:36 Dose: 4 mls/min Documented by: [id number] Thiamine HCl 100 mg/ Syringe 10 mls @ 2 mls/min IV QAM [facility] Stop: 04/10/21 22:59 Last Admin: 03/12/21 08:49 Dose: 2 mls/min Documented by: [id number] Admin: 03/11/21 23:39 Dose: Not Given Documented by: [id number] Potassium Chloride/Sodium Chloride (Normal Saline W/20 Meq Kcl) 20 meq in 1,000 mls @ 125 mls/hr IV .Q8H [facility] Stop: 03/12/21 07:14 Last Infusion: 03/12/21 07:44 Dose: 0 mls/hr Documented by: [id number] Admin: 03/11/21 23:39 Dose: 125 mls/hr Documented by: [id number] Folic Acid 1 mg/ Syringe 10 mls @ 5 [facility] [place] Stop: 04/10/21 22:59 Last Admin: 03/13/21 09:47 Dose: 5 mls/min Documented by: [id number] Admin: 03/12/21 08:49 Dose: 5 mls/min Documented by: [id number] Admin: 03/11/21 23:31 Dose: Not Given Documented by: [id number] Sodium Chloride (Nss 1000ml) 1,000 mls @ 125 mls/hr IV .Q8H BRENDA Stop: 04/11/21 07:14 Last Infusion: 03/13/21 10:39 Dose: 0 mls/hr Documented by: [id number] Admin: 03/13/21 08:28 Dose: 1,000 mls/hr Documented by: [id number] Infusion: 03/13/21 00:38 Dose: 1,000 mls/hr Documented by: [id number] Admin: 03/12/21 23:38 Dose: 1,000 mls/hr Documented by: [id number] Infusion: 03/12/21 16:22 Dose: 0 mls/hr Documented by: [id number] Admin: 03/12/21 16:22 Dose: 125 mls/hr Documented by: [id number] Infusion: 03/12/21 16:17 Dose: 125 mls/hr Documented by: [id number] Admin: 03/12/21 08:17 Dose: 125 mls/hr Documented by: [id number] Magnesium Sulfate/Dextrose (Magnesium Sulfate / D5w) 1 gm in 100 mls @ 50 mls/hr IV ONE ONE Stop: 03/12/21 01:56 Last Infusion: 03/12/21 02:10 Dose: 0 mls/hr Documented by: [id number] Admin: 03/12/21 00:08 Dose: 50 mls/hr Documented by: [id number] Thiamine HCl 200 mg/ Sodium (Chloride) 52 mls @ 210 mls/hr IV BID [facility] Stop: 04/11/21 20:59 Last Infusion: 03/13/21 11:07 Dose: 0 mls/hr Documented by: [id number] Admin: 03/13/21 10:47 Dose: 210 mls/hr Documented by: [id number] Infusion: 03/12/21 22:00 Dose: 0 mls/hr Documented by: [id number] Admin: 03/12/21 21:34 Dose: 210 mls/hr Documented by: [id number] Lisinopril (Lisinopril 5 Mg Tab) 5 mg PO QAM [facility] Stop: 04/11/21 08:59 Last Admin: 03/12/21 08:48 Dose: 5 mg Documented by: [id number] Lisinopril (Lisinopril 10 Mg Tab) 10 mg PO QAM [facility] Stop: 04/12/21 08:59 Last Admin: 03/13/21 10:35 Dose: 10 mg Documented by: [id number] Miscellaneous (Remove Nicoderm Patch) 1 ea N/A DAILY@0859 [facility] Stop: 04/12/21 08:58 Last Admin: 03/13/21 09:49 Dose: 1 ea Documented by: [id number] Nicotine (Nicotine 14 Mg/24 Hr Patch) 14 mg TD QAM BRENDA Stop: 04/11/21 18:14 Last Admin: 03/13/21 10:25 Dose: 14 mg Documented by: [id number] Admin: 03/12/21 18:38 Dose: 14 mg Documented by: [id number] Potassium Chloride (Potassium Chloride Crtab 20 Meq Tabcr) 40 meq PO NOW STA Stop: 03/11/21 19:32 Last Admin: 03/11/21 20:05 Dose: 40 meq Documented by: [id number] Potassium Chloride (Potassium Chloride Crtab 20 Meq Tabcr) 40 meq PO NOW STA Stop: 03/12/21 09:04 Last Admin: 03/12/21 10:27 Dose: 40 meq Documented by: [id number] Imaging Data Radiologist's Impression: Head CT 03/11/21 16:50 CT head/brain wo con CLINICAL HISTORY: seizure, ETOH COMPARISON STUDY: 12/23/2020 CT DOSE: 1151.75 mGy.cm TECHNIQUE: Standard CT of the Brain was performed without IV contrast. A dose lowering technique was utilized adhering to the principles of ALARA. FINDINGS: Extraaxial space: There is no evidence for subdural hematoma. There are no extra-axial fluid collections. Ventricles and cisterns: The ventricles are normal in size and configuration. There is no evidence for midline shift or mass effect. Parenchyma: There is no subarachnoid or intraparenchymal hemorrhage. There is no evidence for an acute infarct or cerebral edema. There is homogeneous atten uation of the brain parenchyma. There are no gross mass lesions. Osseous structures: There is no evidence for an acute fracture. The visualized paranasal sinuses are clear. The mastoid air cells are clear bilaterally. Soft tissues: There is no evidence for focal soft tissue swelling. IMPRESSION: No acute intracerebral pathology. ACT 112: Negative or not required by law. Electronically signed by: Narinder Ramirez M.D. 03/11/2021 5:24 PM Blood Pressure Blood Pressure Findings: Elevated blood pressure Blood Pressure Disposition: further management by hospitalist Discharge Plan Visit Data Chief Complaint: Seizure Stated Complaint: Seizure ED Provider: Radha Hampton Discharge Problem: Alcohol withdrawal seizure, High serum osmolar gap, Elevated lactic acid level Discharge Problem: (Ruled Out): Engages in vaping Patient Disposition: Admitted As Inpatient Discharge Instructions Interventions: ED Discharge Assessment Last Done: 03/12/21 22:07 Discharge Problem: Alcohol withdrawal seizure Qualifiers: Complication of substance-induced condition: with unspecified complication Qualified Code(s): F10.239 - Alcohol dependence with withdrawal, unspecified
--- NOTE | 2021-03-11 17:26 | CT Scan Report ---
CT head/brain wo con CLINICAL HISTORY: seizure, ETOH COMPARISON STUDY: 12/23/2020 CT DOSE: 1151.75 mGy.cm TECHNIQUE: Standard CT of the Brain was performed without IV contrast. A dose lowering technique was utilized adhering to the principles of ALARA. FINDINGS: Extraaxial space: There is no evidence for subdural hematoma. There are no extra-axial fluid collecti ons. Ventricles and cisterns: The ventricles are normal in size and configuration. There is no evidence f or midline shift or mass effect. Parenchyma: There is no subarachnoid or intraparenchymal hemorrhage. There is no evidence for an acu te infarct or cerebral edema. There is homogeneous attenuation of the brain parenchyma. There are no gross mass lesions. Osseous structures: There is no evidence for an acute fracture. The visualized paranasal sinuses are clear. The mastoid air cells are clear bilaterally. Soft tissues: There is no evidence for focal soft tissue swelling. IMPRESSION: No acute intracerebral pathology. ACT 112: Negative or not required by law. Electronically signed by: Narinder Ramirez M.D. 03/11/2021 5:24 PM
[2021-03-11 17:44] LABS: Albumin Globulin Ratio 0.8 (0.9-2); Albumin Level 3.8 gm/dl (3.4-5.0); BUN Creatinine Ratio 3.5 (10-20); Calcium 10.2 mg/dl (8.5-10.1); Creatinine Clr Calc Pharmacy 98.2 ml/min; Est GFR (African American) 81.4 ml/min; Est GFR (Non-African American) 70.2 ml/min; Globulin 4.8 gm/dl (2.5-4.0); Phosphorus 2.9 mg/dl (2.5-4.9); Total Protein 8.6 gm/dl (6.4-8.2)
[2021-03-11 17:51] LABS: Basophils # (auto) 0.02 K/uL (0-0.2); Basophils % (auto) 0.5 %; Hematocrit (blood only) 41.9 % (42-52); Hemoglobin 14.2 g/dL (14.0-18.0); Immature Granulocytes # (auto) 0.01 K/uL (0.00-0.02); Immature Granulocytes % (auto) 0.3 %; Lymphocytes # (auto) 1.17 K/uL (1.2-3.4); Lymphocytes % (auto) 32.1 %; Mean Corpuscular Hemoglobin 31.6 pg (25-34); Mean Corpuscular Hgb Conc 33.9 g/dL (32-36); Mean Corpuscular Volume 93.3 fL (80-100); Mean Platelet Volume 12.1 fL (7.4-10.4); Monocytes # (auto) 0.33 K/uL (0.11-0.59); Monocytes % (auto) 9.1 %; Neutrophils # (auto) 2.11 K/uL (1.4-6.5); Platelet Count 42 K/uL (130-400); Platelet Estimate Decreased (Normal); RBC Morphology Unremarkable; RDW Coefficient of Variation 14.8 % (11.5-14.5); RDW Standard Deviation 50.5 fL (36.4-46.3); Red Blood Count 4.49 M/uL (4.7-6.1); White Blood Count 3.64 K/uL (4.8-10.8)
[2021-03-11] MEDS ORDERED: SODIUM CHLORIDE 0.9% 1000ML 1,000 ML IV ONE (18:01)
[2021-03-11] MEDS ORDERED: ATIVAN IV ALCOHOL WITHDRAWL IV SCH (18:15)
[2021-03-11 18:27] LABS: Magnesium 1.6 mg/dl (1.8-2.4); Potassium 2.8 mmol/L (3.5-5.1)
[2021-03-11] MEDS ORDERED: POTASSIUM CHLORIDE CRTAB 20 MEQ TABCR PO STA (19:31)
[2021-03-11] MEDS: MAGNESIUM SULFATE / D5W 1 GM/100 ML BAG IV SCH ×2 (20:00→20:44)
[2021-03-11] MEDS: POTASSIUM CHLORIDE / WTR 10 MEQ/100 ML PLCT IV SCH ×2 (20:01→21:10)
[2021-03-11] MEDS ORDERED: LORAZEPAM 1MG IV ACTIVE PROTOCOL IV PRN (21:45)
[2021-03-11] MEDS ORDERED: LORAZEPAM 3MG IV ACTIVE PROTOCOL IV PRN (21:45)
[2021-03-11] MEDS ORDERED: LORAZEPAM 2MG IV ACTIVE PROTOCOL IV PRN (21:45)
[2021-03-11] MEDS ORDERED: cloNIDine HCL 0.1 MG TAB PO ONE (22:00)
[2021-03-11] MEDS ORDERED: ATIVAN IV ALCOHOL WITHDRAWL IV PRN (23:00)
[2021-03-11] MEDS ORDERED: LORazepam 2 MG/4 ML VIAL IV PRN (23:00)
[2021-03-11] MEDS ORDERED: GABAPENTIN 600 MG TAB PO SCH (23:00)
[2021-03-11] MEDS ORDERED: LORazepam 3 MG/6 ML VIAL IV PRN (23:00)
[2021-03-11] MEDS ORDERED: cloNIDine HCL 0.1 MG TAB PO PRN (23:00)
[2021-03-11] MEDS ORDERED: ACETAMINOPHEN 325 MG TAB PO PRN (23:00)
[2021-03-11] MEDS ORDERED: NSS + 20MEQ KCL 20 MEQ/1,000 ML BAG IV SCH (23:15)
--- NOTE | 2021-03-11 23:16 | History & Physical Report ---
Date of Service March 11, 2021 Assessment & Plan (1) Alcohol withdrawal: Plan: 35yo male with history of EtOH abuse, prior withdrawal seizures and delirium tremens (September 2020 and December 2020) requiring intensive care management, Precedex/Phenobarbital/Librium and high doses of benzodiazepines. Patient admits to drinking appx 19-20 drinks/day with last drink today at 14:00. His EtOH level is 4.6. Patient tachycardic and hypertensive. VS have improved with Ativan and Valium. Anticipate need for high doses of benzodiazepines. -Admit to PCU, low threshold for MICU transfer -Continue AWSS per protocol with IV Ativan -Consider repeat dosing of IV Valium -Will hold on additional Gabapentin for now -Librium per protocol -Clonidine as needed for BP management 0.1mg po TID as needed -Thiamine 100mg IV daily -Folic acid 1mg IV daily -Consider rehab referral after acute issues resolve. (2) Elevated lactic acid level: Plan: Patient with elevated lactate level of 10.6 on arrival. He has been given IVF x 3L. He is afebrile. Technically meets 2/4 SIRS criteria with WBC <4 and tachycardia, however, suspect leukopenia is more likely secondary to bone marrow toxicity with EtOH abuse and tachycardic and hypertension most likely secondary to withdrawal. -Repeat level pending -Check CXR and UA -Monitor closely for developing infection (3) Hypokalemia: Plan: K=2.8. Has been given 60 mEq thus far -NSS with KCl 20mEq -Repeat level in AM -Mg repletion - will give additional 1gm for total of 3gm (4) HTN (hypertension), benign: Plan: Chronic -Continue Lisinopril -Clonidine 0.1mg po TID as needed for BP >180/110 (5) Opioid use disorder: Plan: Patient on Suboxone -Continue at home dose (6) Alcoholic hepatitis: Plan: Elevation of AST and ALT from EtOH use. Normal bilirubin -Check PT/PTT/INR to calculate MDF -Repeat LFTs in AM -RUQUS (7) Thrombocytopenia: Plan: Platelets=42, previously normal at 259 on 12/28/20. Suspect worsening liver function. No active bleeding -CBC in AM Admission and Anticipated Discharge Date Admission Date: March 11, 2021 History of Present Illness Chief Complaint: seizure Primary Care Provider: NO PCP Tomás Arellano is a 35yo male with history of EtOH abuse presenting with seizure. Patient states that he had a seizure earlier today, he thinks around 16:30 this afternoon. He was at work. Does not know how long the seizure lasted. 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 Patient drinks a 6 pack of Alleene Light seltzer + 2 large (16 oz) Hermes's Lemonades + 10 small bottles of Fireball/ day. Appx 19-20 drinks/day. His last drink was this afternoon around 14:00. He was hospitalized at [facility] from 12/23 - 12/29 for EtoH withdrawal seizures, DTs and severe hyponatremia with Lr=378. He was intubated during that hospital stay due to enlarged tongue with bite rogers and bleeding. He had a previous hospitalization in September 2020 for refractory delirium tremens requiring large doses of IV Ativan, ICU admission, Precedex, Phenobarbital and Librium He does identify as an alcoholic. He has tried AA in the past and states that he "hated it". He is not interested in inpatient EtOH rehabilitation at this time but may be interested in outpatient options. He states he is interested in quitting drinking. Upon arrival to the ER patient tachycardic (HR 144), hypertensive. He denies fever, chills, chest pain, cough, SOB, abdominal pain, nausea, vomiting, diarrhea or constipation. No additional complaints at this time. ER Course: Banana bag x 1, NSS x 2L, Ativan 2mg + 2mg + 1mg Gabapentin 1200mg + 600mg Mg x 1gm KCL x 60mEq Valium 10mg IV Clonidine 0.1mg Tylenol 650mg Buprenorphine/Naloxone 1 tab Allergies Allergy/AdvReac Type Severity Reaction Status Date / Time No Known Allergies Allergy Unverified 03/11/21 16:50 Home Medications Medication Instructions Recorded Confirmed Type buprenorphine 8 mg-naloxone 2 mg 1 tab SUBLINGUAL BID 09/04/20 03/11/21 History sublingual tablet lisinopril 5 mg tablet 5 mg PO QAM 12/23/20 03/11/21 History Past Med/Surg History Medical History Alcohol use disorder Bilateral pneumonia HTN (hypertension), benign Opioid use disorder Surgical History No pertinent past surgical history Family History Other No pertinent family history Social History Smoking Status: Current every day smoker Tobacco Type: Cigarettes Second Hand Exposure: Yes; Hx Alcohol Use: Yes Alcohol type: hard liquor Hx Substance Use: No Preferred Language: Urdu Communication Ability: Unable 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 Beliefs That Will Affect Care: None marital status: Single Current Living Situation: Alone Feels Safe at Home: Yes Assistive Devices: None Review of Systems Review of Systems: All systems reviewed & are unremarkable except as noted in HPI & below Physical Exam Physical Exam: General: patient resting comfortably, NAD, non-toxic in appearance, AA&O x 3 Skin: warm, dry, intact, no rashes or lesions HEENT: NC/AT, PERRL, EOMI, anicteric sclera, conjunctiva without injection, external ear normal to inspection and nontender, nares patent, moist mucus membranes, dentition intact, neck supple, no c-spine tenderness, trachea midline, no LAD, no thyromegaly, no JVD Heart: +S1/S2, regular, tachycardic, no m/r/g Lungs: equal air entry bilaterally, no rales/rhonchi/wheezes Abd: +BS, soft, NT/ND, no masses/organomegaly/ascites Ext: warm, 2+ pulses in UE/LE bilaterally, no clubbing/cyanosis or edema Neuro: nonfocal, patient AA&O x 3, speech intact, no facial droop, moving all extremities on command with equal strength 5/5 Results & Data Results & Data ([facility]) Vital Signs (Past 12 Hours) Vital Signs Temp Pulse Pulse Resp BP BP Pulse Ox 03/11/21 21:45 116 H 18 193/117 H 99 03/11/21 21:20 37.6 C H 118 H 20 194/118 H 97 03/11/21 20:00 126 H 18 191/122 H 98 03/11/21 17:52 129 H 18 174/103 H 95 03/11/21 16:27 37.4 C 144 H 18 112/76 98 03/11/21 16:20 128 H 22 141/88 H 97 Laboratory Results Laboratory Results WBC 3.64 K/uL (4.8-10.8) L 03/11/21 16:30 RBC 4.49 M/uL (4.7-6.1) L 03/11/21 16:30 Hgb 14.2 g/dL (14.0-18.0) 03/11/21 16:30 Hct 41.9 % (42-52) L 03/11/21 16:30 MCV 93.3 fL (80-100) 03/11/21 16:30 MCH 31.6 pg (25-34) 03/11/21 16:30 MCHC 33.9 g/dL (32-36) 03/11/21 16:30 RDW Std Deviation 50.5 fL (36.4-46.3) H 03/11/21 16:30 RDW Coeff of Desiree 14.8 % (11.5-14.5) H 03/11/21 16:30 Plt Count 42 K/uL (130-400) L 03/11/21 16:30 MPV 12.1 fL (7.4-10.4) H 03/11/21 16:30 Immature Gran % (Auto) 0.3 % 03/11/21 16:30 Neut % (Auto) 58.0 % 03/11/21 16:30 Lymph % (Auto) 32.1 % 03/11/21 16:30 Jennings % (Auto) 9.1 % 03/11/21 16:30 Eos % (Auto) 0.0 % 03/11/21 16:30 Baso % (Auto) 0.5 % 03/11/21 16:30 Neut # (Auto) 2.11 K/uL (1.4-6.5) 03/11/21 16:30 Lymph # (Auto) 1.17 K/uL (1.2-3.4) L 03/11/21 16:30 Jennings # (Auto) 0.33 K/uL (0.11-0.59) 03/11/21 16:30 Eos # (Auto) 0.00 K/uL (0-0.5) 03/11/21 16:30 Baso # (Auto) 0.02 K/uL (0-0.2) 03/11/21 16:30 Immature Gran # (Auto) 0.01 K/uL (0.00-0.02) 03/11/21 16:30 Platelet Estimate Decreased (Normal) L 03/11/21 16:30 RBC Morphology Unremarkable 03/11/21 16:30 Sodium 132 mmol/L (136-145) L 03/11/21 16:30 Potassium 2.8 mmol/L (3.5-5.1) L 03/11/21 17:06 Chloride 93 mmol/L (98-107) L 03/11/21 16:30 Carbon Dioxide 20 mmol/L (21-32) L 03/11/21 16:30 Anion Gap 19.0 (3-11) H 03/11/21 16:30 BUN 5 mg/dl (7-18) L 03/11/21 16:30 Creatinine 1.30 mg/dl (0.6-1.4) 03/11/21 16:30 Est Cr Clr Drug Dosing 98.2 ml/min 03/11/21 16:30 Est GFR ( Amer) 81.4 ml/min 03/11/21 16:30 Est GFR (Non-Af Amer) 70.2 ml/min 03/11/21 16:30 BUN/Creatinine Ratio 3.5 (10-20) L 03/11/21 16:30 Glucose 174 mg/dl (70-99) H 03/11/21 16:30 Lactate 10.6 mmol/L (0.4-2.0) H* 03/11/21 17:06 Calcium 10.2 mg/dl (8.5-10.1) H 03/11/21 16:30 Phosphorus 2.9 mg/dl (2.5-4.9) 03/11/21 16:30 Magnesium 1.6 mg/dl (1.8-2.4) L 03/11/21 17:06 Total Bilirubin 1.0 mg/dl (0.2-1) 03/11/21 16:30 AST 395 U/L (15-37) H 03/11/21 17:06 ALT 98 (12-78) H 03/11/21 16:30 Alkaline Phosphatase 164 U/L (45-117) H D 03/11/21 16:30 Total Creatine Kinase 413 U/L (39-308) H 03/11/21 17:06 Total Protein 8.6 gm/dl (6.4-8.2) H 03/11/21 16:30 Albumin 3.8 gm/dl (3.4-5.0) 03/11/21 16:30 Globulin 4.8 gm/dl (2.5-4.0) H 03/11/21 16:30 Albumin/Globulin Ratio 0.8 (0.9-2) L 03/11/21 16:30 Specimen Hemolysis 03/11/21 17:06 Ethyl Alcohol mg/dL 4.6 mg/dl (0-3) H 03/11/21 17:06 SARS-CoV-2, RNA, NAAT NEGATIVE (NEGATIVE) 03/11/21 20:[address] 03/11/21 16:50 CT head/brain wo con CLINICAL HISTORY: seizure, ETOH COMPARISON STUDY: 12/23/2020 CT DOSE: 1151.75 mGy.cm TECHNIQUE: Standard CT of the Brain was performed without IV contrast. A dose lowering technique was utilized adhering to the principles of ALARA. FINDINGS: Extraaxial space: There is no evidence for subdural hematoma. There are no extra-axial fluid collections. Ventricles and cisterns: The ventricles are normal in size and configuration. There is no evidence for midline shift or mass effect. Parenchyma: There is no subarachnoid or intraparenchymal hemorrhage. There is no evidence for an acute infarct or cerebral edema. There is homogeneous attenuation of the brain parenchyma. There are no gross mass lesions. Osseous structures: There is no evidence for an acute fracture. The visualized paranasal sinuses are clear. The mastoid air cells are clear bilaterally. Soft tissues: There is no evidence for focal soft tissue swelling. IMPRESSION: No acute intracerebral pathology. ACT 112: Negative or not required by law. Electronically signed by: Narinder Ramirez M.D. 03/11/2021 5:24 PM Code Status & VTE Plan VTE Prophylaxis Plan VTE Prophylaxis will be ordered: Yes PG Care Time/CCT Total # of Minutes Spent Total Time Spent with Patient: Total time spent is greater than 50% in coordination of care (as documented) at patient's floor/unit and/or counseling patient: Coding Level of Care Code 33692 Initial Inpt Care Lvl 3 Diagnoses Hypokalemia E87.6 Alcohol withdrawal F10.239 Complication of substance-induced condition: with unspecified complication HTN (hypertension), benign I10 Opioid use disorder F11.90 Elevated lactic acid level R79.89 Alcoholic hepatitis K70.10 Thrombocytopenia D69.6 (1) Alcohol withdrawal Complication of substance-induced condition: with unspecified complication Qualified Code(s): F10.239 - Alcohol dependence with withdrawal, unspecified
[2021-03-11] MEDS: FOLIC ACID 1 MG in SYRINGE 9.8 ML IV SCH (23:31)
[2021-03-11] MEDS: BUPRENORPHINE/NALOXONE 8/2 MG TAB SL SCH ×2 (23:32→23:38)
[2021-03-11] MEDS: THIAMINE HCL 100 MG in SYRINGE 9 ML IV SCH (23:39)
[2021-03-11] MEDS ORDERED: MAGNESIUM SULFATE / D5W 1 GM/100 ML BAG IV ONE (23:57)
[2021-03-12 00:27] LABS: Amphetamines+Metham, Urine Neg (Neg); Barbiturates, Urine Neg (Neg); Benzodiazepine, Urine Neg (Neg); Cocaine, Urine Neg (Neg); MDMA (Ecstacy), Urine Neg (Neg); Methadone, Urine Neg (Neg); Opiate, Urine Neg (Neg); Phencyclidine, Urine Neg (Neg)
[2021-03-12 00:38] LABS: Appearance Urine Clear (Clear); Bacteria Urine Automated Negative (Negative); Bilirubin Urine Negative (Negative); Blood Urine Trace (Negative); Color Urine Yellow; Epithelial Cell Urine Auto 0-5 /lpf (0-5); Glucose Urine UA Negative (Negative); Ketones Urine Negative (Negative); Leukocyte Esterase Urine Negative (Negative); Nitrite Urine Negative (Negative); Protein Urine 1+ (Negative); RBC Urine Automated 0-4 /hpf (0-4); Specific Gravity Urine 1.009 (1.000-1.030); Urobilinogen Urine Negative (Negative)
[2021-03-12] MEDS: LORazepam 1 MG/2 ML VIAL IV PRN ×2 (02:29→07:27)
[2021-03-12 05:26] LABS: INR 1.2 (0.9-1.1); Prothrombin Time 11.6 Seconds (9.0-12.0)
[2021-03-12] MEDS: chlordiazePOXIDE HCl 25 MG CAP PO SCH ×5 (05:32→23:37)
[2021-03-12 06:02] LABS: Albumin Level 3.1 gm/dl (3.4-5.0); BUN Creatinine Ratio 3.6 (10-20); Bilirubin Direct 0.7 mg/dl (0-0.2); Bilirubin,Total 1.5 mg/dl (0.2-1); Calcium 8.7 mg/dl (8.5-10.1); Creatinine Clr Calc Pharmacy 137.2 ml/min; Est GFR (Non-African American) 105.2 ml/min; Magnesium 2.4 mg/dl (1.8-2.4); Potassium 3.2 mmol/L (3.5-5.1); Total Protein 6.9 gm/dl (6.4-8.2)
[2021-03-12 06:15] LABS: Hematocrit (blood only) 38.2 % (42-52); Hemoglobin 12.2 g/dL (14.0-18.0); Mean Corpuscular Hemoglobin 31.1 pg (25-34); Mean Corpuscular Hgb Conc 31.9 g/dL (32-36); Mean Corpuscular Volume 97.4 fL (80-100); Mean Platelet Volume 12.7 fL (7.4-10.4); Platelet Count 65 K/uL (130-400); RDW Coefficient of Variation 15.5 % (11.5-14.5); RDW Standard Deviation 55.4 fL (36.4-46.3); Red Blood Count 3.92 M/uL (4.7-6.1); White Blood Count 4.12 K/uL (4.8-10.8)
[2021-03-12 06:16] LABS: Basophils # (auto) 0.03 K/uL (0-0.2); Basophils % (auto) 0.7 %; Eosinophils # (auto) 0.06 K/uL (0-0.5); Eosinophils % (auto) 1.5 %; Lymphocytes # (auto) 1.97 K/uL (1.2-3.4); Lymphocytes % (auto) 47.8 %; Monocytes # (auto) 0.32 K/uL (0.11-0.59); Monocytes % (auto) 7.8 %; Neutrophils # (auto) 1.74 K/uL (1.4-6.5); Neutrophils % (auto) 42.2 %; RBC Morphology Unremarkable
--- NOTE | 2021-03-12 07:14 | XRay Report ---
XR chest 1V portable CLINICAL HISTORY: ?PNA COMPARISON STUDY: Chest radiograph December 25, 2020. FINDINGS: Elevation of the right hemidiaphragm is unchanged. There is no pneumothorax or pleural effu gatito. Mild right basilar opacity favors atelectasis. There is no evidence for pulmonary edema. Cardio mediastinal silhouette is stable. IMPRESSION: Mild right basilar opacity which favors atelectasis. ACT 112: Negative or not required by law. Electronically signed by: Rogerio Rouse M.D. 03/12/2021 7:13 AM
--- NOTE | 2021-03-12 07:46 | Electrocardiogram Report ---
Test Reason : Blood Pressure : / mmHG Vent. Rate : 136 BPM Atrial Rate : 136 BPM P-R Int : 132 ms QRS Dur : 094 ms QT Int : 400 ms P-R-T Axes : 024 089 037 degrees QTc Int : 602 ms Sinus tachycardia Abnormal ECG When compared with ECG of 23-DEC-2020 12:04, No significant change was found Confirmed by Mario Peña ([id number]) on 03/12/2021 7:45:58 AM Referred By: REFERRED SELF Confirmed By:Ubaldo Peña
[2021-03-12] MEDS: SODIUM CHLORIDE 0.9% 1000ML 1,000 ML IV SCH ×3 (08:17→23:38)
--- NOTE | 2021-03-12 08:30 | Ultrasound Report ---
ABDOMINAL ULTRASOUND, RIGHT UPPER QUADRANT HISTORY: Abnormal LFTs. COMPARISON: Abdominal ultrasound 10/02/2020. FINDINGS: Pancreas: The pancreatic tail is obscured by overlying bowel gas. The remaining portions of the pancr eas are within normal limits. Liver: The liver is echogenic consistent with fatty change. The liver measures 26 cm in length. This is similar to the prior study. Gallbladder: No gallbladder wall thickening. No gallstones. CBD: 5 mm. Right kidney: No hydronephrosis. IMPRESSION: 1. Hepatomegaly demonstrating fatty change. This is similar to the prior study. 2. Normal gallbladder. No gallstones. ACT 112: Negative or not required by law. Electronically signed by: Jhonny Meza M.D. 03/12/2021 8:28 AM
[2021-03-12] MEDS: BUPRENORPHINE/NALOXONE 8/2 MG TAB SL SCH ×2 (08:48→20:41)
[2021-03-12] MEDS: THIAMINE HCL 100 MG in SYRINGE 9 ML IV SCH (08:49)
[2021-03-12] MEDS: FOLIC ACID 1 MG in SYRINGE 9.8 ML IV SCH (08:49)
[2021-03-12] MEDS ORDERED: lisinopril 5 MG TAB PO SCH (09:00)
[2021-03-12] MEDS ORDERED: chlordiazePOXIDE ALCOHOL WITHDRAWL 50MG PO SCH (09:00)
[2021-03-12] MEDS ORDERED: POTASSIUM CHLORIDE CRTAB 20 MEQ TABCR PO STA (09:03)
[2021-03-12] MEDS ORDERED: CHLORDIAZEPOXIDE 50MG STARTING DOSE PO SCH (10:00)
--- NOTE | 2021-03-12 10:30 | Hospitalist Progress Note ---
Date of Service March 12, 2021 Assessment & Plan (1) Alcohol withdrawal: Plan: 35yo male with history of EtOH abuse, prior withdrawal seizures and delirium tremens (September 2020 and December 2020) requiring intensive care management, Precedex/Phenobarbital/Librium and high doses of benzodiazepines. Patient admitted to the admitting physician that he has continued to drink ~ 19-20 drinks/day with last drink on 03/11 in the early afternooon. Patient placed on librium per admitting provider with AWSS per protocol with IV Ativan. Increase thiamine to 200mg BID. Folate 1mg daily. I allerted the ICU attending about Mr Arellano and is high risk of needing ICU stay given our past experience with his admissions. ICU aware. Continue IV fluids & supportive care. Allow diet - start with full liquids. Labs in am. (2) Alcohol withdrawal seizure: Plan: None since admission. Continue seizure precautions. Continue to treat etoh withdrawal as in #1. keep electrolytes wnl. (3) Elevated lactic acid level: Plan: Patient with elevated lactate level of 10.6 on arrival. He has been given IVF x 3L. Technically met 2/4 SIRS criteria with WBC <4 and tachycardia, however, suspect leukopenia was more likely secondary to bone marrow toxicity from EtOH abuse, and tachycardic and hypertension most likely secondary to etoh withdrawal. Repeat lactate much improved (2.2). U/a wnl. COVID testing negative. CXR without definitive pneumonia but has h/o such and watch carefully for any symptoms/signs of pneumonia. (4) Hypokalemia: Plan: K=2.8 on presentation. 2nd to etoh abuse. Improving. Cont IV and PO supplementation. Trend. mag level noted to be normal. (5) HTN (hypertension), benign: Plan: Chronic, but worse in the setting of withdrawal. Schedule the clonidine BID. Increase the lisinopril. I did give him a 1-time dose of norvasc today. (6) Opioid use disorder: Plan: Patient on Suboxone Continue at home dose (7) Alcoholic hepatitis: Plan: Elevation of AST and ALT from EtOH use. INR only 1.2. Does not meet criteria for methylprednisolone therapy for etoh hepatitis. Repeat LFTs am. (8) Thrombocytopenia: Plan: Platelets=42 at presentation, now 65. Suspect bone marrow toxicity from etoh, as well as #7 contributing. Continue to trend. Folate supplementation. (9) Tobacco dependence: Plan: nicoderm patch 14mg/day Plan: patient previously not receptive to any help for his alcoholism will involve social work again when able to help with his condition Admission and Anticipated Discharge Date Admission Date: March 11, 2021 Subjective patient snoring very loudly when I entered his room his O2 had fallen off - o2 sats were 89% in RA O2 reapplied he awoke easily to his name being called he was alert, oriented x 3, knew that we had just had Maximiliano a few days prior he admitted to [facility] but otherwise felt ok he asked for something to drink as we were talking he quickly fell back to sleep HR and BP have been very elevated since admission no seizures noted by ER staff Review of Systems Review of Systems: gen - fatigue, tired; no fevers CV - no chest pain pulm - no cough or dyspnea GI - denies nausea, emesis, abd pain neuro - denies headache Physical Exam Physical Exam: gen - NAD, able to answer all questions; oriented x 3 eyes - horizontal nystagmus mouth - bite eddie on distal tongue on right, MMM heart - tachy, s1 s2, no murmur lungs - CTA b/l abd - soft, liver edge palpable, BS+, NT ext - no edema, pulses 2+ b/l neuro - tremors; strength 5/5 x 4 exts Results & Data Results & Data ([facility]) Vital Signs (Past 12 Hours) Vital Signs Temp Pulse Pulse Resp BP BP Pulse Ox 03/12/21 10:00 101 H 13 166/121 H 98 03/12/21 09:30 101 H 13 89 L 03/12/21 09:00 102 H 17 192/117 H 94 03/12/21 08:30 100 H 13 95 03/12/21 08:10 98 H 5 L 184/105 H 03/12/21 07:30 93 H 12 100 03/12/21 07:15 37.2 C 83 20 183/124 H 100 03/12/21 07:00 100 H 10 L 100 03/12/21 06:30 100 H 15 100 03/12/21 06:00 102 H 15 100 03/12/21 05:38 37.2 C 106 H 14 155/108 H 99 03/12/21 05:30 106 H 10 L 100 03/12/21 05:00 108 H 13 159/106 H 99 03/12/21 04:30 101 H 10 L 172/115 H 100 03/12/21 04:00 110 H 12 100 03/12/21 03:30 108 H 12 161/106 H 100 03/12/21 03:00 112 H 14 100 03/12/21 02:37 37.5 C 110 H 20 155/104 H 99 03/12/21 02:30 113 H 16 100 03/12/21 02:00 117 H 15 99 03/12/21 01:30 117 H 14 100 03/12/21 01:00 118 H 16 161/113 H 93 03/12/21 00:30 95 03/12/21 00:00 13 96 03/11/21 23:30 120 H 14 99 03/11/21 23:00 37.6 C H 121 H 110 H 13 158/111 H 98 Pulse Ox 03/12/21 10:00 03/12/21 09:30 03/12/21 09:00 03/12/21 08:30 03/12/21 08:10 03/12/21 07:30 03/12/21 07:15 03/12/21 07:00 03/12/21 06:30 03/12/21 06:00 03/12/21 05:38 03/12/21 05:30 03/12/21 05:00 03/12/21 04:30 03/12/21 04:00 03/12/21 03:30 03/12/21 03:00 03/12/21 02:37 03/12/21 02:30 03/12/21 02:00 03/12/21 01:30 03/12/21 01:00 03/12/21 00:30 03/12/21 00:00 03/11/21 23:30 03/11/21 23:00 99 Laboratory Results admission cbc, bmp, lfts noted PG Care Time/CCT Total # of Minutes Spent Total Time Spent with Patient: Total time spent is greater than 50% in coordination of care (as documented) at patient's floor/unit and/or counseling patient: Coding Level of Care Code 33535 Subseq Hosp Care Lvl 3 Diagnoses Alcohol withdrawal F10.239 Complication of substance-induced condition: with unspecified complication Elevated lactic acid level R79.89 Hypokalemia E87.6 HTN (hypertension), benign I10 Opioid use disorder F11.90 Alcoholic hepatitis K70.10 Thrombocytopenia D69.6 Alcohol withdrawal seizure F10.239; R56.9 Tobacco dependence F17.200 (1) Alcohol withdrawal Complication of substance-induced condition: with unspecified complication Qualified Code(s): F10.239 - Alcohol dependence with withdrawal, unspecified
[2021-03-12] MEDS ORDERED: GABAPENTIN 600 MG TAB PO SCH (13:00)
[2021-03-12] MEDS ORDERED: amLODIPine BESYLATE 5 MG TAB PO ONE (18:18)
[2021-03-12] MEDS: NICOTINE 14 MG/24 HR PATCH TD SCH (18:38)
[2021-03-12 20:12] VITALS: O2SAT 95
[2021-03-12] MEDS: cloNIDine HCL 0.1 MG TAB PO SCH (20:41)
[2021-03-12] MEDS ORDERED: THIAMINE HCL 200 MG in SYRINGE 9 ML IV SCH (21:00)
[2021-03-12] MEDS: THIAMINE HCL 200 MG in SODIUM CHLORIDE 0.9% 50 ML IV SCH (21:34)
[2021-03-13 07:05] LABS: Hematocrit (blood only) 37.8 % (42-52); Hemoglobin 12.1 g/dL (14.0-18.0); Mean Corpuscular Hemoglobin 31.6 pg (25-34); Mean Corpuscular Volume 98.7 fL (80-100); RDW Coefficient of Variation 15.1 % (11.5-14.5); RDW Standard Deviation 54.9 fL (36.4-46.3); Red Blood Count 3.83 M/uL (4.7-6.1); White Blood Count 4.15 K/uL (4.8-10.8)
[2021-03-13 07:13] LABS: INR 1.1 (0.9-1.1); Prothrombin Time 10.9 Seconds (9.0-12.0)
[2021-03-13 07:25] LABS: Basophils # (auto) 0.02 K/uL (0-0.2); Basophils % (auto) 0.5 %; Eosinophils # (auto) 0.18 K/uL (0-0.5); Eosinophils % (auto) 4.3 %; Immature Granulocytes # (auto) 0.01 K/uL (0.00-0.02); Immature Granulocytes % (auto) 0.2 %; Lymphocytes # (auto) 1.86 K/uL (1.2-3.4); Lymphocytes % (auto) 44.8 %; Mean Platelet Volume 11.9 fL (7.4-10.4); Monocytes # (auto) 0.27 K/uL (0.11-0.59); Monocytes % (auto) 6.5 %; Neutrophils # (auto) 1.81 K/uL (1.4-6.5); Neutrophils % (auto) 43.7 %; Platelet Count 58 K/uL (130-400)
[2021-03-13 07:48] LABS: Basophilic Stippling 2+; Polychromasia 1+
[2021-03-13 07:49] LABS: Albumin Globulin Ratio 0.8 (0.9-2); Albumin Level 2.7 gm/dl (3.4-5.0); BUN Creatinine Ratio 1.2 (10-20); Bilirubin,Total 1.4 mg/dl (0.2-1); Calcium 8.3 mg/dl (8.5-10.1); Creatinine Clr Calc Pharmacy 151.9 ml/min; Est GFR (African American) 130.6 ml/min; Est GFR (Non-African American) 112.6 ml/min; Globulin 3.6 gm/dl (2.5-4.0); Potassium 4.1 mmol/L (3.5-5.1); Total Protein 6.3 gm/dl (6.4-8.2)
[2021-03-13 07:51] VITALS: BP 167/112; PULSE 86; TEMP 98.4
[2021-03-13] MEDS: SODIUM CHLORIDE 0.9% 1000ML 1,000 ML IV SCH (08:28)
[2021-03-13] MEDS ORDERED: lisinopril 10 MG TAB PO SCH (09:00)
[2021-03-13] MEDS: FOLIC ACID 1 MG in SYRINGE 9.8 ML IV SCH (09:47)
[2021-03-13] MEDS: BUPRENORPHINE/NALOXONE 8/2 MG TAB SL SCH (09:47)
[2021-03-13] MEDS: chlordiazePOXIDE HCl 25 MG CAP PO SCH (09:48)
[2021-03-13] MEDS: cloNIDine HCL 0.1 MG TAB PO SCH (09:48)
[2021-03-13] MEDS: NICOTINE 14 MG/24 HR PATCH TD SCH (10:25)
[2021-03-13] MEDS: THIAMINE HCL 200 MG in SODIUM CHLORIDE 0.9% 50 ML IV SCH (10:47)
[2021-03-13] MEDS ORDERED: CHLORDIAZEPOXIDE 50MG 2ND DOSE PO SCH (14:00)
[2021-03-13] MEDS ORDERED: GABAPENTIN 600 MG TAB PO SCH (17:00)
--- NOTE | 2021-03-13 17:54 | Discharge Summary ---
Date of Service March 13, 2021 Admission HPI Per Admitting Provider Tomás Arellano is a 35yo male with history of EtOH abuse presenting with seizure. Patient states that he had a seizure earlier today, he thinks around 16:30 this afternoon. He was at work. Does not know how long the seizure lasted. 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 Patient drinks a 6 pack of [place] Light seltzer + 2 large (16 oz) Hermes's Lemonades + 10 small bottles of Fireball/ day. Appx 19-20 drinks/day. His last drink was this afternoon around 14:00. He was hospitalized at [facility] from 12/23 - 12/29 for EtoH withdrawal seizures, DTs and severe hyponatremia with Sq=157. He was intubated during that hospital stay due to enlarged tongue with bite rogers and bleeding. He had a previous hospitalization in September 2020 for refractory delirium tremens requiring large doses of IV Ativan, ICU admission, Precedex, Phenobarbital and Librium He does identify as an alcoholic. He has tried AA in the past and states that he "hated it". He is not interested in inpatient EtOH rehabilitation at this time but may be interested in outpatient options. He states he is interested in quitting drinking. Upon arrival to the ER patient tachycardic (HR 144), hypertensive. He denies fever, chills, chest pain, cough, SOB, abdominal pain, nausea, vomiting, diarrhea or constipation. No additional complaints at this time. ER Course: Banana bag x 1, NSS x 2L, Ativan 2mg + 2mg + 1mg Gabapentin 1200mg + 600mg Mg x 1gm KCL x 60mEq Valium 10mg IV Clonidine 0.1mg Tylenol 650mg Buprenorphine/Naloxone 1 tab Principal Diagnosis Alcohol withdrawal improving Discharge Exam In general he is awake and alert oriented x3 pleasant calm no distress. HEENT normocephalic atraumatic mucous membranes moist. Breathing unlabored no accessory muscle use good effort. Skin shows no rashes no pallor or icterus. Neuro shows cranial nerves II through XII be grossly intact gross motor and sensory intact, very mild resting tremor normal heart rate Discharge Data Allergies Allergy/AdvReac Type Severity Reaction Status Date / Time No Known Allergies Allergy Unverified 03/11/21 16:50 Consultations 03/11/21 19:32 ED Decision to Admit Stat Ordered Studies 03/11/21 16:50 CT head/brain wo con Stat 03/12/21 00:00 US liver Routine Hospital Course (1) Alcohol withdrawal: About 3 days out from last drink, oriented, calm, showing some improvement. Really would like to get out of the hospitalnotes that having his job is part of his sobriety plan, and he has a shift tomorrow that he is very reluctant to miss. Given that he does seem to be improving, and is of sound mind, appears safe to let him go homeLibrium at bedtime for 3 more days, return to the hospital with any worsening. His plan for sobriety includes not having any alcohol at home, having his job to give him a purpose/give him something to do, and friends and family that are both supportive and hold him accountable. Continue thiamine, folate (2) Alcohol withdrawal seizure: None since admission. Safe for home (3) Elevated lactic acid level: Patient with elevated lactate level of 10.6 on arrival. He has been given IVF x 3L. Technically met 2/4 SIRS criteria with WBC <4 and tachycardia, however, suspect leukopenia was more likely secondary to bone marrow toxicity from EtOH abuse, and tachycardic and hypertension most likely secondary to etoh withdrawal. Repeat lactate much improved (2.2). U/a wnl. COVID testing negative. CXR without definitive pneumonia Almost certainly was all related to alcohol withdrawal/seizure (4) Hypokalemia: Replaced (5) HTN (hypertension), benign: Chronic, but worse in the setting of withdrawal. Asymptomatic from a hypertension standpointsafe for home, outpatient follow-up. Recommended ambulatory blood pressure monitoring. (6) Opioid use disorder: Patient on Suboxone Continue at home dose (7) Alcoholic hepatitis: Elevation of AST and ALT from EtOH use. INR only 1.2 at worst Does not meet criteria for methylprednisolone therapy for etoh hepatitis. Outpatient labs. (8) Thrombocytopenia: Suspect bone marrow toxicity from etoh, as well as #7 contributing. Continue to trend as outpatient (9) Tobacco dependence: nicoderm patch 14mg/day utilized while hospitalized, encourage smoke cessation as well Stable for home, otherwise as above Total Time Total Time Spent Total Time Spent (In Minutes): Less than 30 Discharge Plan Discharge Items Patient Disposition: Home - Self-Care Reason For Visit: ETOH WITHDRAWAL, SEIZURE Discharge Diagnosis: Alcohol withdrawal Activity: Resume your previous activity Non-emergency contact: Primary Care Provider Call non-emergency contact if: you have any medication questions and your symptoms worsen Follow-up/Referrals: PCP,NO [Primary Care Provider] - Diet: Regular Addtl Attending Provider Instructions: Alcohol withdrawal -Fortunately you are doing much better, and it does appear that you are safe to go homeas we discussed, once people start to "turn the corner" with withdrawal it is rare that things worsen in any dramatic or serious fashion. That said, if you did notice that you started to feel worse, more shaky/racing heart/even feeling at all confusedwe would want you back here right away. This is very unlikely to happen -We will have you take a dose of Librium once a day for the next 3 days just to help blunt the symptoms of withdrawal until it passes, like we discussed it is a very long/slow acting medicine so it should not be risky to give you a "buzz"I would have you take it at bedtime given that it can be a little bit sedating/would not want to impair your ability to drive/work/etc. -Lean on your support system -Take the thiamine and folic acid to help support nerves/liver from the effects of the alcohol -You had some lab work that was "off" -all of which appears to relate to alcohol. I would recommend that he have repeat lab work (CBC, CMP, PT/INR) in 1 to 2 weeks to follow things back to improvement Elevated blood pressure -Your blood pressure was fairly highI suspect this probably from the physiologic stress of withdrawal/overall stress of being in the hospital. At the same time, we would not want you to have uncontrolled blood pressure that is not being managed. I would recommend that you follow blood pressure readings at home (get an automatic [id number] cough) a few times a week, and then follow-up with your family doc in a week or so to review the numbers Pending Studies at Discharge: No Stand-Alone Forms: My [facility] [employer], Smoking Cessation Medications and DC Order Prescriptions: New chlordiazepoxide HCl 25 mg capsule 25 mg PO HS Qty: 3 RF: 0 thiamine HCl (vitamin B1) 100 mg tablet 100 mg PO DAILY Qty: 30 RF: 0 folic acid 1 mg tablet 1 mg PO DAILY Qty: 30 RF: 0 Continued lisinopril 5 mg tablet 5 mg PO QAM RF: 0 buprenorphine-naloxone 8-2 mg tablet, sublingual 1 tab SUBLINGUAL BID RF: 0 Discharge Orders: Discharge Order (Routine); Ordered 03/13/21 Ordered By: Jc Silva Admission Data Admit Date/Time: 03/11/21 20:17 Attending Provider: Jc Silva Admit Provider: Melanie Starr Primary Care Provider: PCP,NO Other Providers: Melanie Starr ; Tashi Apple Other Interventions: Discharge Summary Assessment (RN) Last Done: 03/13/21 12:31 Coding Level of Care Code D/C DAY MANAGEMENT <30 MINS Diagnoses Alcohol withdrawal F10.239 Complication of substance-induced condition: with unspecified complication Alcohol withdrawal seizure F10.239; R56.9 Elevated lactic acid level R79.89 Hypokalemia E87.6 HTN (hypertension), benign I10 Opioid use disorder F11.90 Alcoholic hepatitis K70.10 Thrombocytopenia D69.6 Tobacco dependence F17.200
[2021-03-14] MEDS ORDERED: CHLORDIAZEPOXIDE 25MG 3RD DOSE PO SCH (14:00)
[2021-03-15] MEDS ORDERED: GABAPENTIN 600 MG TAB PO SCH (05:00)
[2021-03-15] MEDS ORDERED: CHLORDIAZEPOXIDE 10MG 4TH DOSE PO SCH (18:00)
--- NOTE | 2021-03-27 13:54 | Coding Query ---
CODING QUERY To promote full compliance with coding requirements relating to patient care, provider participation is requested in all cases of core sticker uncertainty. Please assist us with the question(s) below: Coding Question(s): "Opioid use disorder" cannot be coded without greater specificity. Please indicate below: Physician's Response(s): honestly hard to tell - was not acutely part of his presentation and was really only documented to clarify the continuation of suboxone. ?mild since it seemed under control but moderate/severe because he requires ongoing treatment? sorry. thanks ( ) Mild ( ) Moderate to severe Thank you Yuliana Jeong Principal Diagnosis: "that condition established after study, to be chiefly responsible for occasioning the admission of the patient to the hospital for care." Co-Existing Principal Diagnosis: "when two or more diagnoses equally meet the criteria for principal diagnosis as determined by the circumstances of admission, diagnostic work up, and/or therapy provided, and the Alphabetic Index, Tabular List, or another coding guideline does not provide sequencing direction, any one of the diagnoses may be sequenced first." "When the physician has documented what appears to be a current diagnosis in the body of the record, but has not included the diagnosis in the final diagnostic statement, the physician should be asked whether the diagnosis should be added." (Source Coding [facility] 2 QTR90. p3-4) KAY
== END 2021-03-13 12:34 | disposition home or self-care (01) | DRG 897 ==
LOC: ED 16:21 → SUATTDRO 20:17 → EDINP 20:17

== ENCOUNTER 2021-10-13 23:26 | Inpatient (IN) ==
[2021-10-13] MEDS ORDERED: VANCOMYCIN HCL 2,750 MG in SODIUM CHLORIDE 0.9% 500 ML IV ONE (23:47)
[2021-10-13] MEDS ORDERED: PIPERACILLIN/TAZOBACTAM 4.5 GM in DEXTROSE 5% 100 ML IV ONE (23:47)
[2021-10-13] MEDS ORDERED: LORazepam 1 MG TAB PO STA (23:47)
[2021-10-13] MEDS ORDERED: VANCOMYCIN CONSULT ACTIVE PRN (23:47)
[2021-10-13] MEDS ORDERED: MULTI-VITAMIN INFUSION 10 ML, THIAMINE HCL 100 MG, FOLIC ACID 1 MG in SODIUM CHLORIDE 0... IV ONE (23:47)
[2021-10-14 00:13] LABS: Basophils # (auto) 0.14 K/uL (0-0.2); Basophils % (auto) 1.5 %; Eosinophils # (auto) 0.09 K/uL (0-0.50); Hematocrit (blood only) 28.5 % (40.1-51.0); Hemoglobin 9.2 g/dl (14.0-18.0); Immature Granulocytes # (auto) 0.06 K/uL (0.00-0.02); Immature Granulocytes % (auto) 0.7 %; Lymphocytes # (auto) 1.47 K/uL (1.2-3.4); Lymphocytes % (auto) 16.2 %; Mean Corpuscular Hemoglobin 32.5 pg (25.0-34.0); Mean Corpuscular Hgb Conc 32.3 g/dL (32.0-36.0); Mean Corpuscular Volume 100.7 fL (80.0-100.0); Mean Platelet Volume 12.2 fL (9.4-12.4); Monocytes # (auto) 1.33 K/uL (0.24-0.82); Monocytes % (auto) 14.6 %; Neutrophils # (auto) 5.99 K/uL (1.4-6.5); Nucleated RBC # (auto) 0.08 K/uL (0-0); Nucleated RBC % (auto) 0.9 %; Platelet Count 181 K/uL (130-400); RDW Coefficient of Variation 14.7 % (11.5-14.5); RDW Standard Deviation 54.1 fL (36.4-46.3); Red Blood Count 2.83 M/uL (4.63-6.08); White Blood Count 9.08 K/ul (4.8-10.8)
[2021-10-14] MEDS ORDERED: PIPERACILLIN/TAZOBACTAM 4.5 GM/120 ML BAG IV ONE (00:15)
[2021-10-14 00:28] LABS: INR 1.1 (0.9-1.1); Partial Thromboplastin Time 26.3 Seconds (21.0-31.0); Prothrombin Time 11.8 Seconds (9.0-12.0)
[2021-10-14] MEDS ORDERED: LORazepam 1 MG TAB PO STA (00:42)
[2021-10-14 00:55] LABS: Albumin Globulin Ratio 0.8 (0.9-2); Albumin Level 3.1 gm/dl (3.4-5.0); BUN Creatinine Ratio 6.1 (10-20); Bilirubin,Total 3.5 mg/dl (0.2-1.0); Creatinine Clr Calc Pharmacy 217.2 ml/min; Est GFR (African American) 143.2 ml/min; Est GFR (Non-African American) 123.5 ml/min; Globulin 3.9 gm/dl (2.5-4.0); Magnesium 1.3 mg/dl (1.7-2.4); Potassium 2.1 mmol/L (3.5-5.1); Troponin I High Sensitivity 46.2 pg/ml (0-20)
[2021-10-14] MEDS ORDERED: LORazepam 2 MG/1 ML VIAL IV STA ×2 (01:09→02:52)
[2021-10-14 01:33] LABS: Phosphorus 2.6 mg/dl (2.5-4.9)
[2021-10-14] MEDS: MAGNESIUM SULFATE / D5W 1 GM/100 ML BAG IV SCH ×6 (01:34→11:54)
[2021-10-14] MEDS: SODIUM CHLORIDE 0.9% 1000ML 1,000 ML IV SCH ×2 (02:13→04:13)
[2021-10-14 02:15] LABS: Base Excess VBG 8.7 mEq/L; HCO3 VBG 33 mmol/L; Oxygen Saturation VBG < 60.0 %; PCO2 VBG 42 mmHg (38-50); PO2 VBG 30 mmHg
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
[2021-10-14] MEDS ORDERED: ICU PROTOCOL FOR HYPERGLYCEMIA PRN (03:59)
[2021-10-14] MEDS ORDERED: LORazepam 1 MG in SYRINGE 0.5 ML IV PRN (03:59)
[2021-10-14] MEDS ORDERED: Ativan IV Alcohol Withdrawal--Active Protocol IV PRN (03:59)
[2021-10-14] MEDS ORDERED: LORazepam 3 MG in SYRINGE 1.5 ML IV PRN (03:59)
[2021-10-14] MEDS: POTASSIUM CHLORIDE / WTR 10 MEQ/100 ML PLCT IV SCH ×11 (04:12→21:38)
[2021-10-14] MEDS: POTASSIUM CHLORIDE CRTAB 20 MEQ TABCR PO SCH ×3 (04:20→08:26)
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
[2021-10-14] MEDS ORDERED: NORMOSOL-R 1,000 ML IV SCH (04:30)
[2021-10-14] MEDS: ACETAMINOPHEN 325 MG TAB PO PRN (04:47)
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
[2021-10-14 04:49] LABS: Appearance Urine Clear (Clear); Bacteria Urine Automated Negative (Negative); Blood Urine Negative (Negative); Color Urine Dark Yellow; Glucose Urine UA Negative (Negative); Ketones Urine Trace (Negative); Leukocyte Esterase Urine Negative (Negative); Nitrite Urine Positive (Negative); Protein Urine 1+ (Negative); RBC Urine Automated 0-4 /hpf (0-4); Specific Gravity Urine 1.021 (1.000-1.030); Urobilinogen Urine Positive (Negative); pH Urine 5.5 (4.5-7.5)
[2021-10-14 04:56] LABS: Bilirubin Urine 2+ (Negative)
[2021-10-14 05:17] LABS: Amphetamines+Metham, Urine Neg (Neg); Barbiturates, Urine Neg (Neg); Benzodiazepine, Urine Neg (Neg); Cocaine, Urine Neg (Neg); MDMA (Ecstacy), Urine Neg (Neg); Methadone, Urine Neg (Neg); Opiate, Urine Neg (Neg); Phencyclidine, Urine Neg (Neg)
[2021-10-14] MEDS: PIPERACILLIN/TAZOBACTAM 4.5 GM in DEXTROSE 5% 100 ML IV SCH ×3 (05:46→21:21)
[2021-10-14 05:58] LABS: Basophils # (auto) 0.09 K/uL (0-0.2); Basophils % (auto) 1.4 %; Eosinophils # (auto) 0.08 K/uL (0-0.50); Eosinophils % (auto) 1.2 %; Hematocrit (blood only) 25.9 % (40.1-51.0); Hemoglobin 8.5 g/dl (14.0-18.0); Immature Granulocytes # (auto) 0.03 K/uL (0.00-0.02); Immature Granulocytes % (auto) 0.5 %; Lymphocytes # (auto) 1.92 K/uL (1.2-3.4); Lymphocytes % (auto) 29.2 %; Mean Corpuscular Hemoglobin 32.9 pg (25.0-34.0); Mean Corpuscular Hgb Conc 32.8 g/dL (32.0-36.0); Mean Corpuscular Volume 100.4 fL (80.0-100.0); Mean Platelet Volume 11.9 fL (9.4-12.4); Monocytes # (auto) 0.92 K/uL (0.24-0.82); Neutrophils # (auto) 3.54 K/uL (1.4-6.5); Neutrophils % (auto) 53.7 %; Nucleated RBC # (auto) 0.04 K/uL (0-0); Nucleated RBC % (auto) 0.6 %; Platelet Count 135 K/uL (130-400); RDW Coefficient of Variation 14.6 % (11.5-14.5); RDW Standard Deviation 53.4 fL (36.4-46.3); Red Blood Count 2.58 M/uL (4.63-6.08); White Blood Count 6.58 K/ul (4.8-10.8)
[2021-10-14] MEDS ORDERED: DAPTOmycin 600 MG in SYRINGE 0 ML IV SCH (06:00)
[2021-10-14] MEDS: LORazepam 2 MG in SYRINGE 1 ML IV PRN ×5 (06:04→23:18)
--- NOTE | 2021-10-14 06:38 | CT Scan Report ---
CT tib/fib RT wo con HISTORY: 36 years-old Male ?Necrotizing fasciitis acute pain with soft tissue infection of the right lower leg COMPARISON: None TECHNIQUE: Multiple axial CT images of the right tibia and fibula were obtained following the intrave nous administration of Optiray. A dose lowering technique was used consistent with the principals of JOAQUIN. FINDINGS: Partially imaged small joint effusion of the knee. Moderate diffuse skin thickening with subcutaneous edema. No fluid collections. The vasculature appears to be within normal limits. No subcutaneous emp hysema. Tendons and ligaments are not well evaluated by CT technique. There is no acute fracture, dis location, opaque foreign body or osseous erosion. The joint spaces are relatively well-preserved. IMPRESSION: 1. No acute fracture, dislocation or osseous erosion. 2. Moderate diffuse skin thickening with subcutaneous edema. Cellulitis, venous stasis or lymphedema are differential considerations. 3. No subcutaneous emphysema or abscess. 4. Small knee joint effusion ACT 112: Negative or not required by law. The above report was generated using voice recognition software. It may contain grammatical, syntax o r spelling errors. Electronically signed by: Chao Saavedra M.D. 10/14/2021 6:35 AM
--- NOTE | 2021-10-14 06:39 | CT Scan Report ---
CT OF THE ABDOMEN AND PELVIS WITHOUT CONTRAST CLINICAL HISTORY: Sepsis. COMPARISON STUDY: CT of the abdomen and pelvis October 01, 2020. Right upper quadrant ultrasound Dece er 2020. TECHNIQUE: Axial images of the abdomen and pelvis were obtained without IV contrast. Images were revi ewed in the axial, sagittal, and coronal planes. Automated exposure control was utilized for the carlos dy. A dose lowering technique was utilized adhering to the principles of ALARA. FINDINGS: Subpleural opacities within the lower lungs favor atelectasis. There is elevation of the ri ght hemidiaphragm. Heart is mildly enlarged. No pneumatosis, free air or portal venous gas is present . Evaluation of the abdomen and pelvis is suboptimal on this unenhanced exam. Severe hepatic steatosi s is noted. Hepatomegaly is present. This has increased since CT of October 01, 2020. Mild splenomegaly has developed. Water attenuation left renal lesions are suboptimally assessed on this unenhanced exam but favor cysts. Unenhanced images of the adrenal glands and pancreas are unremarkable. There is no biliary or pancreatic ductal dilatation. Congenital bowel malrotation is present. Several prominent f luid-filled loops of small bowel within the right abdomen are noted. However, no transition point is identified. No evidence for a bowel obstruction. Appendix is normal. There is no lymphadenopathy. No acute fracture within visualized skeletal structures is present. No osseous lesions are noted. No uri nary calculi are present. There is no hydronephrosis. IMPRESSION: 1. Severe hepatic steatosis and hepatomegaly which has increased since prior CT. Interval development of mild splenomegaly. 2. Congenital bowel malrotation. A few prominent fluid-filled loops of small bowel without evidence f or a bowel obstruction. 3. Mild cardiomegaly. ACT 112: Negative or not required by law. Electronically signed by: Rogerio Rouse M.D. 10/14/2021 6:37 AM
[2021-10-14 06:48] LABS: Alanine Aminotransferase 8 U/L (7-52); Albumin Level 2.8 gm/dl (3.4-5.0); Alkaline Phosphatase 124 U/L (34-104); Anion Gap 11 (3-11); Aspartate Aminotransferase 89 U/L (13-39); BUN Creatinine Ratio 5.6 (10-20); Bilirubin,Total 3.7 mg/dl (0.2-1.0); Blood Urea Nitrogen 3 mg/dl (6-23); Calcium 7.4 mg/dl (8.5-10.1); Carbon Dioxide 32 mmol/L (21-32); Chloride 93 mmol/L (98-107); Creatinine Clr Calc Pharmacy 264.3 ml/min; Est GFR (African American) > 150.0 ml/min; Est GFR (Non-African American) 134.1 ml/min; Glucose 98 mg/dl (70-99(Fasting)); Magnesium 1.5 mg/dl (1.7-2.4); Potassium 2.5 mmol/L (3.5-5.1); Sodium 136 mmol/L (136-145); Total Protein 6.2 gm/dl (6.0-8.3); Troponin I High Sensitivity 60.5 pg/ml (0-20)
--- NOTE | 2021-10-14 07:18 | XRay Report ---
XR chest 1V portable HISTORY: 36 years-old Male SEPSIS acute sepsis COMPARISON: Chest radiograph 03/12/2021 TECHNIQUE: Portable AP view of the chest FINDINGS: The cardiac silhouette is enlarged. Possible pulmonary vascular congestion. Unchanged right hemidiaph ragmatic elevation. There is no pneumothorax, pleural effusion or lobar airspace consolidation. The b ones appear normal. IMPRESSION: Cardiomegaly without acute process. ACT 112: Negative or not required by law. The above report was generated using voice recognition software. It may contain grammatical, syntax o r spelling errors. Electronically signed by: Chao Saavedra M.D. 10/14/2021 7:17 AM
[2021-10-14] MEDS ORDERED: LORazepam 4 MG in SYRINGE 2 ML IV ONE (07:45)
[2021-10-14] MEDS: PANTOprazole 40 MG TAB PO SCH (08:00)
[2021-10-14] MEDS: FOLIC ACID 1 MG in SYRINGE 9.8 ML IV SCH (08:00)
[2021-10-14] MEDS: THIAMINE HCL 100 MG in SYRINGE 9 ML IV SCH (08:00)
[2021-10-14] MEDS ORDERED: STAT IV Infusion **Titration per Protocol STA (08:08)
[2021-10-14] MEDS: dexMEDEtomidine 200 MCG/50 ML BAG IV SCH ×10 (08:21→22:59)
[2021-10-14] MEDS ORDERED: LORAZEPAM IV STA ×2 (08:51→09:40)
--- NOTE | 2021-10-14 09:04 | Hospitalist Progress Note ---
Date of Service October 14, 2021 Assessment & Plan (1) Cellulitis of right leg: Plan: 36yo male with history of EtOH use disorder, opioid use disorder on Suboxone therapy, HTN presenting with pain, redness and swelling of RLE - appear to have fairly significant cellulitis with possible abscesses. Patient is afebrile. His tachycardia may be in part due to sepsis as well as EtOH withdrawal. His blood pressure is within normal range. No clinical suggestion for necrotizing infection. Elevated Lactic Acid level of 10.5 which improved to 7.1 after 2L IVF Procalcitonin is normal at 0.32 and WBC is normal at 9.08 (patient has been leukopenic in the past with WBC of 4) -Check CT of the RLE to assess for gas producing organisms as well as drainable fluid collection -Surgery consultation if either are present -Check venous doppler to assess for DVT -Continue IVF - patient to receive additional 1L of NSS IV -Follow cultures sent from ER -Daptomycin and Zosyn for empiric coverage - SSTI -Maximo and date area of cellulitis to monitor for progression -Wound care (2) Alcohol use disorder: Plan: Patient with alcohol use disorder, several prior admissions with complicated withdrawal - seizure, DTs and refractory DTs. Patient has been drinking appx 30-40 alcoholic beverages daily for the last several days. Last drink was immediately prior to coming in to the ER. Patient smells of EtoH, level of 252. Concerning that he is displaying withdrawal symptoms at this time. -Admit to MICU -Continue IV Ativan as needed -Thiamine and Folic acid -Low threshold for Precedex -Mild elevation of AST to 109, AP to 146, Tbili of 3.5. Coagulation studies are normal. MDF=low, no indication for steroids -Macrocytic anemia most likely secondary to EtOH use. Monitor (3) Electrolyte abnormality: Plan: Hypomagnesemia and hypokalemia with Mg of 1.3 and K of 2.1. -Administer Mg x 6 gm -KCL 80mEq PO ordered + KCl 10mEq x 4 (total of 120mEq K) -Repeat chemistry and Mg in AM and continue repletion as needed (4) Opioid use disorder: Plan: Chronic -Continue Suboxone (5) HTN (hypertension), benign: Plan: Blood pressure stable -Hold Lisinopril for now -Monitor closely Admission and Anticipated Discharge Date Admission Date: October 14, 2021 Results & Data Results & Data ([facility]) Vital Signs (Past 12 Hours) Vital Signs Temp Pulse Pulse Resp BP BP Pulse Ox 10/14/21 06:00 38.3 C H 120 H 29 H 205/129 H 93 10/14/21 05:30 38.4 C H 137 H 28 H 93 10/14/21 05:00 38.3 C H 120 H 28 H 160/102 H 93 10/14/21 05:21 10/14/21 04:30 38.2 C H 117 H 27 H 188/106 H 93 10/14/21 04:49 37.9 C H 119 H 21 147/105 H 95 10/14/21 03:01 118 H 23 10/14/21 03:01 139/76 10/14/21 03:00 117 H 23 95 10/14/21 02:46 96 10/14/21 02:46 135/84 10/14/21 02:45 123 H 24 98 10/14/21 02:30 121 H 23 96 10/14/21 02:15 122 H 23 97 10/14/21 02:15 136/80 10/14/21 02:00 122 H 26 H 96 10/14/21 01:46 121 H 23 99 10/14/21 01:46 123/79 10/14/21 01:45 123 H 16 100 10/14/21 01:41 135/82 10/14/21 01:41 17 99 10/14/21 01:30 120 H 23 96 10/14/21 01:15 119 H 22 87 L 10/14/21 01:01 118 H 29 H 94 10/14/21 01:01 131/93 10/14/21 01:00 118 H 28 H 92 10/14/21 00:45 120 H 26 H 92 10/14/21 03:15 10/14/21 01:38 37.8 C H 10/14/21 00:30 124 H 31 H 95 10/14/21 01:28 100 10/14/21 00:30 10/14/21 00:16 124/87 10/14/21 00:16 129 H 29 H 92 10/14/21 00:15 130 H 34 H 10/14/21 00:00 121 H 21 10/13/21 23:45 124 H 24 97 10/14/21 00:06 94 10/13/21 23:27 36.3 C L 130 H 18 152/72 H 99 O2 Del Method O2 Flow Rate 10/14/21 06:00 Nasal Cannula 3 10/14/21 05:30 Nasal Cannula 2 10/14/21 05:00 Nasal Cannula 2 10/14/21 05:21 Nasal Cannula 2 10/14/21 04:30 Nasal Cannula 2 10/14/21 04:49 Room Air 10/14/21 03:01 10/14/21 03:01 10/14/21 03:00 4 10/14/21 02:46 10/14/21 02:46 10/14/21 02:45 10/14/21 02:30 10/14/21 02:15 Nasal Cannula 4 10/14/21 02:15 10/14/21 02:00 4 10/14/21 01:46 10/14/21 01:46 10/14/21 01:45 4 10/14/21 01:41 10/14/21 01:41 10/14/21 01:30 10/14/21 01:15 Nasal Cannula 4 10/14/21 01:01 10/14/21 01:01 10/14/21 01:00 10/14/21 00:45 10/14/21 03:15 Nasal Cannula 4 10/14/21 01:38 10/14/21 00:30 Room Air 10/14/21 01:28 Nasal Cannula 4 10/14/21 00:30 Room Air 10/14/21 00:16 10/14/21 00:16 Room Air 10/14/21 00:15 10/14/21 00:00 10/13/21 23:45 10/14/21 00:06 Room Air 10/13/21 23:27 Room Air PG Care Time/CCT Total # of Minutes Spent Total Time Spent with Patient: Total time spent is greater than 50% in coordination of care (as documented) at patient's floor/unit and/or counseling patient: Coding Diagnoses Cellulitis of right leg L03.115 Alcohol use disorder Electrolyte abnormality E87.8 Opioid use disorder F11.90 HTN (hypertension), benign I10
--- NOTE | 2021-10-14 09:07 | History & Physical Bridge Note ---
Date of Service October 14, 2021 History & Physical Bridge Note I have examined the patient, reviewed the History & Physical and in the interval since the performance of the History & Physical I have noted the following changes of clinical significance: Pt seen and remains tremulous, confused. Briefly opens eyes to name but is babbling about random things and reaching into the air at times for objects. Is able to deny pain anywhere. Is now on Precedex gtt, receiving large doses of IV ativan. Is febrile, with multiple electrolyte abnormalities on labs being replaced. Is hypertensive but improving with ativan and Precedex/treatment of DTs. Sinus tach on tele. Vitals reviewed Gen: [tremulous all over, eyes closed, NAD, obese,not oriented] HEENT: [anicteric sclerae] CV: [Reg rhythm, tachycardic no mgr nl S1S2] Pulm: [CTAB no wcr, is on 2LNC] Abd: [+BS softly distended NT ND no masses or hernias] Ext: [trace edema legs bilat, 2+ DP pulses] Skin: [Right leg with extensive abrasions, erythema, purulent drainage and crusting, large open abrasion just distal to knee approx 8 x 7 cm,smaller open wound superficial mid tibia] Neuro: [tremulous all over, myoclonic jerking, confused, moving all extremities, no facial droop] Labs reviewed A/P-36 yo male with a h/o EtOH use disorder, on chronic suboxone, HTN, here with sepsis, RLE cellulitis, and severe alcohol withdrawal, multiple electrolytes abnormalities, and alcoholic hepatitis. Remains in ICU-apreciate [employer] management Replacing lytes started on Precedex and continue IV ativan prn AWSS scale continue IVFS, keep NPO continue abx broad spectrum, follow blood cultures give thiamine and folate IV continue home SL suboxone follow closely for need for airway protection/need for intubation
[2021-10-14] MEDS: BUPRENORPHINE/NALOXONE 8/2 MG TAB SL SCH ×2 (09:10→09:28)
[2021-10-14] MEDS: ACETAMINOPHEN 1,000 MG/100 ML VIAL IV PRN ×2 (10:01→18:31)
[2021-10-14] MEDS: ENOXAPARIN INJ 40 MG/0.4 ML SYR SQ SCH ×2 (10:17→20:28)
[2021-10-14 10:29] LABS: Phosphorus 2.7 mg/dl (2.5-4.9)
[2021-10-14] MEDS ORDERED: POTASSIUM PHOS 3 MMOL/1 ML INFUSION IV STA (10:45)
[2021-10-14] MEDS ORDERED: VANCOMYCIN CONSULT ACTIVE PRN (10:51)
--- NOTE | 2021-10-14 10:56 | Critical Care Progress Note ---
Date of Service October 14, 2021 Assessment & Plan (1) Sepsis: (2) Delirium tremens: (3) Elevated lactic acid level: (4) Cellulitis of right leg: (5) Metabolic encephalopathy: Plan Impression: 36-year-old male with history of alcohol abuse presents to the ICU with alcohol withdrawal and sepsis With cellulitis to the right lower extremity Neuro - Encephalopathypatient with EtOH 250 on admission. UDS negative - History of 2 admissions to the ICU for DTs and 1 episode of alcohol withdrawal seizure on prior admissions. - Continue with CIWA protocol with Ativan - Continue with thiamine, folate acid, Multivitamin Opioid abuse disordercontinue Suboxone Cardiac - Tachycardialikely symptom of withdrawal plus sepsis -No history of heart disease -Continue to monitor on telemetry Elevated troponin EKG does not show any changes in the ST or T waves. Sinus tachycardia appreciated Likely type II WA from demand ischemia Continue to monitor HTNhold lisinopril for now. Monitor Respiratory - No history of pulmonary disease. Current smoker: Smoking approximately 15 cigarettes/day. Continuous monitoring on pulse ox. O2 supplementation to keep oxygen saturation around 92% GI - Transaminitis: AST/ALT as well as alk phos are trending down, T bili 3.7--> continue to monitor Fatty liver diseaselikely secondary to alcohol abuse. INR within normal limits. CT abdomen and Pelvis with hepatic steatosis and hepatomegaly RENAL/LYTES - Creatinine within normal limits Replace electrolytes as per ICU protocol -- HAGMA Likely sec to lactic acidosis Monitor Lactic acidosis improving. Continue to monitor - Foleystrict I's and O's ENDO - No history of diabetes or thyroid disease. ICU hyperglycemic protocol HEME - Macrocytic anemia likely from alcohol abuse Continue to monitor H&H ID - Sepsislikely source of cellulitis of the right lower extremity Follow blood cultures. CT right lower extremity does not show any signs of necrotizing fasciitis. Procalcitonin 0.32, Covid-19 NAAT negative, nasal MRSA negative Tylenol as needed for fever CPK 291 --Prophylaxis VTE: Lovenox GI: Protonix Lines: Peripheral Diet: N.p.o. Plan: In/out: +3.7 L, urine output find edema T-max 38.3 Lactic acidosis is improving. Decrease IV fluid to 75 mill an hour Patient is in active DTs on top of sepsis. Continue with Zosyn but will discontinue daptomycin given the elevation of the CPK instead will give vancomycin but the loading dose will be tomorrow as he already got daptomycin for today which will last for 24 hours For the DTs continue with Ativan 5 mg as needed based on agitation. Precedex has also been started. If there is still no improvement in his delirium then will intubate Patient does have maculopapular rash with crusts appreciated in the right lower extremity most likely from cellulitis. But he also has similar kind of rash in the left ankle medial aspect, belly as well as on the chest. Unfortunately is not able to give us any history. Given my monkeypox prevalence, I will keep the patient on contact isolation and in a negative pressure room. Infectious control have been consulted. Electrolytes are being replaced. Repeat BMP, mag, Phos at 2 PM today I have personally spent 45 minutes of critical care time in the direct management of this patient. This is a life/limb threatening event. This includes time spent evaluating patient, direct bedside care, chart review, placing orders, interpretation of diagnostic studies, discussion with consultants, patient, and family members, as well as other required patient management activities. This time is exclusive of all separately billable procedures, and teaching time and separate from and in addition to any other critical care service time. Please note the above document was generated using voice recognition software. It may contain grammatical, syntax or spelling errors. Admission and Anticipated Discharge Date Admission Date: October 14, 2021 Subjective Patient seen and examined at bedside. No acute distress. Patient has been spiking fever T-max of 38.3 He was tachycardic and mildly tachypneic at the time of examination Unfortunately not answering any questions. Had gotten 6 mg of Ativan since coming to the ICU. Review of Systems Review of Systems: Unobtainable due to mental health condition Physical Exam Physical Exam: Constitutional: No acute distress HEENT: EOMI, PERRLA Respiratory system: Decreased air entry bilaterally, no wheeze, rhonchi, positive crackles bilateral lower lobes CVS: S1-S2 positive, no murmurs or gallops, tachycardia Abdomen: Soft, nontender, nondistended, positive bowel sounds x4, obese Extremities: +2 pulses bilaterally radialis/ dorsalis pedis, no cyanosis, +1 pitting edema bilateral lower extremity Right lower extremity positive rubor, positive calor, positive dolor, that dry cluster with clear fluid blisters appreciated with a clear demarcation line around the knee, no fluctuance Neuro: Delirious. Not answering questions appropriately Psych: Unable to assess G/U: Positive Griffin Skin: Maculopapular rash appreciated on the right lower extremity where cellulitis is present There is also maculopapular rash with some crusting appreciated medial aspect of the left ankle, periumbilical area There seems to be scratching rogers bilateral anterior chest around the clavicle Dry scabs appreciated on the face as well bilaterally Lymphatic: no cervical or axillary lymphadenopathy Results & Data Results & Data ([facility]) Vital Signs (Past 12 Hours) Vital Signs Temp Pulse Pulse Resp BP BP Pulse Ox 10/14/21 06:00 38.3 C H 120 H 29 H 205/129 H 93 10/14/21 05:30 38.4 C H 137 H 28 H 93 10/14/21 05:00 38.3 C H 120 H 28 H 160/102 H 93 10/14/21 05:21 10/14/21 04:30 38.2 C H 117 H 27 H 188/106 H 93 10/14/21 04:49 37.9 C H 119 H 21 147/105 H 95 10/14/21 03:01 118 H 23 10/14/21 03:01 139/76 10/14/21 03:00 117 H 23 95 10/14/21 02:46 96 10/14/21 02:46 135/84 10/14/21 02:45 123 H 24 98 10/14/21 02:30 121 H 23 96 10/14/21 02:15 122 H 23 97 10/14/21 02:15 136/80 10/14/21 02:00 122 H 26 H 96 10/14/21 01:46 121 H 23 99 10/14/21 01:46 123/79 10/14/21 01:45 123 H 16 100 10/14/21 01:41 135/82 10/14/21 01:41 17 99 10/14/21 01:30 120 H 23 96 10/14/21 01:15 119 H 22 87 L 10/14/21 01:01 118 H 29 H 94 10/14/21 01:01 131/93 10/14/21 01:00 118 H 28 H 92 10/14/21 00:45 120 H 26 H 92 10/14/21 03:15 10/14/21 01:38 37.8 C H 10/14/21 00:30 124 H 31 H 95 10/14/21 01:28 100 10/14/21 00:30 10/14/21 00:16 124/87 10/14/21 00:16 129 H 29 H 92 10/14/21 00:15 130 H 34 H 10/14/21 00:00 121 H 21 10/13/21 23:45 124 H 24 97 10/14/21 00:06 94 10/13/21 23:27 36.3 C L 130 H 18 152/72 H 99 O2 Del Method O2 Flow Rate 10/14/21 06:00 Nasal Cannula 3 10/14/21 05:30 Nasal Cannula 2 10/14/21 05:00 Nasal Cannula 2 10/14/21 05:21 Nasal Cannula 2 10/14/21 04:30 Nasal Cannula 2 10/14/21 04:49 Room Air 10/14/21 03:01 10/14/21 03:01 10/14/21 03:00 4 10/14/21 02:46 10/14/21 02:46 10/14/21 02:45 10/14/21 02:30 10/14/21 02:15 Nasal Cannula 4 10/14/21 02:15 10/14/21 02:00 4 10/14/21 01:46 10/14/21 01:46 10/14/21 01:45 4 10/14/21 01:41 10/14/21 01:41 10/14/21 01:30 10/14/21 01:15 Nasal Cannula 4 10/14/21 01:01 10/14/21 01:01 10/14/21 01:00 10/14/21 00:45 10/14/21 03:15 Nasal Cannula 4 10/14/21 01:38 10/14/21 00:30 Room Air 10/14/21 01:28 Nasal Cannula 4 10/14/21 00:30 Room Air 10/14/21 00:16 10/14/21 00:16 Room Air 10/14/21 00:15 10/14/21 00:00 10/13/21 23:45 10/14/21 00:06 Room Air 10/13/21 23:27 Room Air Laboratory Results 10/14/21 05:43 10/14/21 05:43 Diagnostic Findings 10/14/21 05:43 10/14/21 05:43 Coding Level of Care Code Critical Care 1st 30-74 mins Diagnoses Sepsis A41.9 Delirium tremens F10.931 Elevated lactic acid level R79.89 Cellulitis of right leg L03.115 Metabolic encephalopathy G93.41 Time Spent (min) 45
[2021-10-14] MEDS ORDERED: POTASSIUM PHOSPHATE 24 MMOL in SODIUM CHLORIDE 0.9% 500 ML IV ONE (11:00)
--- NOTE | 2021-10-14 12:24 | XRay Report ---
XR chest 1V portable CLINICAL HISTORY: increasing 02 requirements COMPARISON STUDY: Chest radiograph performed earlier today. FINDINGS: No pneumothorax or pleural effusion. Elevation of the right hemidiaphragm is noted. Lung vo lumes are diminished. Interstitial thickening has developed. There are bibasilar opacities. Mild card iomegaly. IMPRESSION: 1. Interval development of interstitial thickening which favors pulmonary edema. 2. Bilateral lower lung opacities which likely reflect atelectasis although consolidation could appea r similar. 3. Cardiomegaly. ACT 112: Negative or not required by law. Electronically signed by: Rogerio Rouse M.D. 10/14/2021 12:22 PM
[2021-10-14] MEDS: VANCOMYCIN HCL 1,500 MG in SODIUM CHLORIDE 0.9% 500 ML IV SCH ×2 (12:25→22:59)
[2021-10-14] MEDS ORDERED: FUROSEMIDE INJ 20 MG/2 ML VIAL IV ONE (12:37)
--- NOTE | 2021-10-14 13:39 | Pharmacy Report ---
Pharmacy PK ABX Note - Date of Service October 14, 2021 - Assessment and Plan Assessment 36 year old M ordered empiric vancomycin and Zosyn for treatment of sepsis likely secondary to right lower extremity cellulitis. Patient originally loaded with vancomycin overnight at 0112, then switched to daptomycin upon admission. CPK elevated at 291 U/L with a history of elevated CPK. Discussed with social worker delinquency prevention and will switch back to vancomycin. Tmax of 38.4 C today, Pertinent microbiologic data includes: blood cultures x 2 pending, MRSA nasal swab negative. Day # 1 of antimicrobial therapy. Plan Vancomycin * Loading dose: 2750 mg IV x 1 * Maintenance dose: 1500 mg IV every 12 hours * Regimen is predicted to achieve target AUC/LURDES of 400-600 mg/L.hr * Trough level ordered for 10/16/21 prior to 5th maintenance dose, reassess AM labs and obtain trough sooner if needed Zosyn * 4.5 g IV q8h - appropriate based on renal function and BMI Pharmacy will continue to follow and will adjust dose/frequency as necessary. Thank you. Pharmacy has transitioned to AUC monitoring for vancomycin. AUC/LURDES is the preferred PK/PD target and is associated with decreased risk of nephrotoxicity compared to traditional trough targets.
[2021-10-14 16:50] LABS: Anion Gap 7 (3-11); BUN Creatinine Ratio 5.8 (10-20); Blood Urea Nitrogen 3 mg/dl (6-23); Calcium 6.8 mg/dl (8.5-10.1); Carbon Dioxide 35 mmol/L (21-32); Chloride 96 mmol/L (98-107); Creatinine Clr Calc Pharmacy 274.4 ml/min; Est GFR (African American) > 150.0 ml/min; Est GFR (Non-African American) 136.2 ml/min; Glucose 106 mg/dl (70-99(Fasting)); Phosphorus 3.4 mg/dl (2.5-4.9); Sodium 138 mmol/L (136-145)
[2021-10-14] MEDS ORDERED: POTASSIUM PHOS 3 MMOL/1 ML INFUSION IV ONE (17:35)
[2021-10-14] MEDS ORDERED: POTASSIUM PHOSPHATE 15 MMOL in SODIUM CHLORIDE 0.9% 250 ML IV ONE (17:45)
--- NOTE | 2021-10-14 22:59 | Electrocardiogram Report ---
Test Reason : Blood Pressure : / mmHG Vent. Rate : 123 BPM Atrial Rate : 123 BPM P-R Int : 150 ms QRS Dur : 102 ms QT Int : 338 ms P-R-T Axes : 043 086 014 degrees QTc Int : 483 ms Sinus tachycardia Possible Left atrial enlargement T wave abnormality, consider inferior ischemia Abnormal ECG When compared with ECG of 11-MAR-2021 16:29, No significant change was found Confirmed by Nasim Martinez ([id number]) on 10/14/2021 10:59:14 PM Referred By: REFERRED SELF Confirmed By:Nasim Martinez
[2021-10-14 23:12] LABS: Potassium 3.9 mmol/L (3.5-5.1)
[2021-10-14 23:13] LABS: BUN Creatinine Ratio 6.7 (10-20); Creatinine Clr Calc Pharmacy 158.6 ml/min; Est GFR (Non-African American) 108.7 ml/min
[2021-10-15] MEDS: dexMEDEtomidine 200 MCG/50 ML BAG IV SCH (00:31)
[2021-10-15] MEDS ORDERED: FUROSEMIDE INJ 20 MG/2 ML VIAL IV ONE (01:00)
[2021-10-15] MEDS: LORazepam 2 MG in SYRINGE 1 ML IV PRN ×7 (01:38→22:41)
[2021-10-15] MEDS: dexMEDEtomidine 400 MCG/100 ML BAG IV SCH ×9 (01:57→22:40)
[2021-10-15] MEDS: ACETAMINOPHEN 1,000 MG/100 ML VIAL IV PRN ×3 (01:57→22:56)
[2021-10-15] MEDS: PIPERACILLIN/TAZOBACTAM 4.5 GM in DEXTROSE 5% 100 ML IV SCH (05:04)
[2021-10-15 05:34] LABS: Bilirubin Direct 2.4 mg/dl (0-0.2)
[2021-10-15 05:35] LABS: Albumin Level 2.8 gm/dl (3.4-5.0); Bilirubin,Total 4.5 mg/dl (0.2-1.0); Calcium 6.7 mg/dl (8.5-10.1); Est GFR (African American) 142.3 ml/min; Est GFR (Non-African American) 122.8 ml/min; Magnesium 1.8 mg/dl (1.7-2.4); Potassium 3.4 mmol/L (3.5-5.1); Total Protein 6.3 gm/dl (6.0-8.3)
[2021-10-15] MEDS: POTASSIUM CHLORIDE / WTR 10 MEQ/100 ML PLCT IV SCH ×4 (06:22→10:09)
[2021-10-15] MEDS: MAGNESIUM SULFATE / D5W 1 GM/100 ML BAG IV SCH ×2 (06:22→08:22)
[2021-10-15 06:46] LABS: Basophils # (auto) 0.09 K/uL (0-0.2); Basophils % (auto) 1.3 %; Eosinophils # (auto) 0.11 K/uL (0-0.50); Eosinophils % (auto) 1.6 %; Hematocrit (blood only) 27.4 % (40.1-51.0); Hemoglobin 8.9 g/dl (14.0-18.0); Immature Granulocytes # (auto) 0.07 K/uL (0.00-0.02); Lymphocytes # (auto) 1.55 K/uL (1.2-3.4); Lymphocytes % (auto) 21.9 %; Mean Corpuscular Hemoglobin 32.8 pg (25.0-34.0); Mean Corpuscular Hgb Conc 32.5 g/dL (32.0-36.0); Mean Corpuscular Volume 101.1 fL (80.0-100.0); Mean Platelet Volume 12.7 fL (9.4-12.4); Monocytes % (auto) 14.1 %; Neutrophils # (auto) 4.25 K/uL (1.4-6.5); Neutrophils % (auto) 60.1 %; Nucleated RBC % (auto) 1.4 %; Platelet Count 146 K/uL (130-400); RDW Coefficient of Variation 14.6 % (11.5-14.5); Red Blood Count 2.71 M/uL (4.63-6.08); White Blood Count 7.07 K/ul (4.8-10.8)
--- NOTE | 2021-10-15 07:35 | Critical Care Progress Note ---
Date of Service October 15, 2021 Assessment & Plan (1) Cellulitis of right leg: (2) Hypomagnesemia: (3) Sepsis: (4) Delirium tremens: (5) Hypokalemia: (6) Alcohol withdrawal: (7) Elevated lactic acid level: (8) Elevated lactic acid level: (9) Fever: (10) Alcoholic hepatitis: (11) Alcohol use disorder: Plan Impression: 36-year-old male with history of alcohol abuse presents to the ICU with alcohol withdrawal and sepsis With cellulitis to the right lower extremity Neuro: Encephalopathy -patient with EtOH 252 on admission. UDS negative -History of 2 admissions to the ICU for DTs and 1 episode of alcohol withdrawal seizure on prior admissions. -Continue with CIWA protocol with Ativan -Continue with thiamine, folate acid, Multivitamin Opioid abuse disorder -continue Suboxone Cardiac: Tachycardia -likely symptom of withdrawal plus sepsis -No history of heart disease -Continue to monitor on telemetry Elevated troponin -EKG does not show any changes in the ST or T waves. Sinus tachycardia appreciated -Likely type II CO from demand ischemia -Continue to monitor HTN -hold lisinopril for now. Monitor Respiratory: -No history of pulmonary disease. Current smoker -Smoking approximately 15 cigarettes/day. Continuous monitoring on pulse ox. O2 supplementation to keep oxygen saturation around 92% GI: Transaminitis - AST/ALT as well as alk phos are trending down or plateauing,T bili 4.5--> co ntinue to monitor Fatty liver diseaselikely secondary to alcohol abuse. INR within normal limits. CT abdomen and Pelvis with hepatic steatosis and hepatomegaly Hepatitis panel pending. RENAL/LYTES - Creatinine within normal limits Replace electrolytes as per ICU protocol HAGMA: Likely sec to lactic acidosis Monitor Lactic acidosis improving. Continue to monitor - Foleystrict I's and O's ENDO - No history of diabetes or thyroid disease. ICU hyperglycemic protocol HEME - Macrocytic anemia likely from alcohol abuse Ordered Folate, B12, reticulocyte count. Continue to monitor H&H ID - Sepsislikely source of impetigo of the right lower extremity Follow blood cultures - negative after first 24hrs. CT right lower extremity does not show any signs of necrotizing fasciitis. Procalcitonin 0.32, Covid-19 NAAT negative, nasal MRSA negative, CPK 291 Tylenol as needed for fever Switched from Vancomycin/Zosyn to IV Ceftriaxone. [place] called and informed of patient's presentation and condition - low suspicion for monkeypox virus. Precautions D/C'ed. VTE: Prophylaxis Lovenox GI: Protonix, NPO Lines: Peripheral Admission and Anticipated Discharge Date Admission Date: October 14, 2021 Supervising Physician Co-Signing Physician Notes Dr. Brown was resident physician during care of patient. I separately evaluated patient for valentin portions of the history and the exam. I was present during the critical portion of medical decision making, and I discussed the case with the resident. I generally agree with the findings and plan. New anemia will send B12 folate retake count. Mild transaminitis, fever [place]: does not fit criteria for testing: will not test, no reported high risk behaviors per CDC guidelines, given low/no incidence of community transmission in the local area will discontinue airborne precautions from monkey pox this time. Concern for superficial skin infection, will proceed with IV ceftriaxone for moderate nonpurulent cellulitis. Discontinue vancomycin and Zosyn. Continue with Ativan at this time if he becomes combative may need to increase to phenobarbital I have personally spent 50 minutes of critical care time in the direct management of this patient. This is a life/limb threatening event. This includes time spent evaluating patient, direct bedside care, chart review, placing orders, interpretation of diagnostic studies, discussion with consultants, patient, and/or family members regarding treatment decisions, as well as other required patient management activities. This time is exclusive of all separately billable procedures, and teaching time and separate from and in addition to any other critical care service time. Subjective Patient seen at the bedside with response of opening eyes to verbal stimulus and follows command to squeeze hands but not verbal. Physical Exam Constitutional: WD/WN, vitals as above Obese habitus. Respiratory: Decreased depth of respirations, mildly course lungs bilaterally more prominent at the bases. Cardiovascular: Rate/Rhythm: + tachycardic Heart Sounds: normal S1 and normal S2 Extremities: + edema (1+) Gastrointestinal (Abdomen): normal bowel sounds, soft, nontender, no hepatosplenomegaly Skin: R coleman below the knee w/ erythema and yellow crusting lesions scattered w/ area of 4-5cm diameter crusting lesion at lateral proximal r leg - impetiginous rash. Psychiatric: Somnolent, opens eyes to verbal stimulus and will squeeze hands on command with a few seconds delay. Hallucinating at times. Genitourinary: Griffin draining dark orange urine. Results & Data Results & Data ([facility]) Vital Signs (Past 12 Hours) Vital Signs Temp Pulse Resp BP Pulse Ox O2 Del Method O2 Flow Rate 10/15/21 06:00 38.5 C H 86 23 188/103 H 95 Oxymask 5 10/15/21 05:30 38.6 C H 86 24 95 Oxymask 5 10/15/21 05:00 38.6 C H 85 24 188/105 H 96 Oxymask 5 10/15/21 04:30 38.7 C H 86 25 H 95 Oxymask 5 10/15/21 04:00 38.8 C H 88 25 H 184/105 H 95 Oxymask 5 10/15/21 03:30 39.1 C H 87 25 H 93 Oxymask 5 10/15/21 03:00 39.2 C H 88 24 182/93 H 93 Oxymask 5 10/15/21 02:30 39.2 C H 88 25 H 93 Oxymask 5 10/15/21 02:00 39.2 C H 89 25 H 174/98 H 93 Oxymask 5 10/15/21 01:30 39.1 C H 90 24 91 Oxymask 5 10/15/21 01:00 39.2 C H 89 25 H 164/93 H 92 Oxymask 7 10/15/21 00:30 39.2 C H 90 28 H 90 Oxymask 10 10/15/21 00:00 39.2 C H 90 26 H 174/92 H 93 Oxymask 5 10/14/21 23:30 39.1 C H 90 28 H 93 Oxymask 5 10/14/21 23:00 39.1 C H 88 27 H 154/83 H 93 Oxymask 5 10/14/21 22:30 39.1 C H 87 25 H 94 Oxymask 5 10/14/21 22:00 39.1 C H 88 29 H 162/87 H 95 Oxymask 5 10/14/21 21:30 39.0 C H 88 26 H 93 Oxymask 5 10/14/21 21:00 39.1 C H 88 25 H 163/87 H 93 Oxymask 5 10/14/21 20:30 39.2 C H 89 25 H 94 Oxymask 5 10/14/21 20:00 39.3 C H 88 25 H 152/67 H 93 Oxymask 5 10/14/21 20:00 Oxymask 5
[2021-10-15] MEDS: THIAMINE HCL 100 MG in SYRINGE 9 ML IV SCH (07:58)
[2021-10-15] MEDS: FOLIC ACID 1 MG in SYRINGE 9.8 ML IV SCH (07:58)
[2021-10-15] MEDS: ENOXAPARIN INJ 40 MG/0.4 ML SYR SQ SCH ×2 (07:58→20:11)
[2021-10-15] MEDS: PANTOprazole 40 MG TAB PO SCH (10:15)
[2021-10-15] MEDS ORDERED: VANCOMYCIN CONSULT ACTIVE PRN (10:53)
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
[2021-10-15] MEDS: VANCOMYCIN HCL 1,500 MG in SODIUM CHLORIDE 0.9% 500 ML IV SCH ×2 (11:20→23:46)
[2021-10-15] MEDS: lisinopril 20 MG TAB PO SCH (12:05)
[2021-10-15] MEDS: cefTRIAXone SODIUM 2,000 MG in DEXTROSE 5% 50 ML IV SCH (13:18)
[2021-10-15 13:55] LABS: Reticulocyte % 4.2 % (0.5-2.0); Reticulocytes # 0.11 10^6/uL (0.02-0.10)
[2021-10-15 14:48] LABS: Folate (Folic Acid) 11.54 ng/ml (>5.38)
[2021-10-15] MEDS ORDERED: amLODIPine BESYLATE 5 MG TAB PO ONE (20:00)
[2021-10-15] MEDS ORDERED: PHENobarbital sodium 65 MG/ML VIAL IV STA (22:46)
[2021-10-16] MEDS: dexMEDEtomidine 400 MCG/100 ML BAG IV SCH ×8 (00:36→15:03)
[2021-10-16] MEDS: LORazepam 2 MG in SYRINGE 1 ML IV PRN ×4 (00:36→10:05)
[2021-10-16] MEDS ORDERED: STAT IV Infusion **Titration per Protocol STA ×2 (04:45→17:06)
[2021-10-16] MEDS ORDERED: dexMEDEtomidine 200 MCG/50 ML BAG IV SCH (04:45)
[2021-10-16 05:51] LABS: Basophils # (auto) 0.13 K/uL (0-0.2); Basophils % (auto) 1.8 %; Eosinophils # (auto) 0.15 K/uL (0-0.50); Eosinophils % (auto) 2.1 %; Hematocrit (blood only) 28.1 % (40.1-51.0); Hemoglobin 8.9 g/dl (14.0-18.0); Immature Granulocytes # (auto) 0.11 K/uL (0.00-0.02); Immature Granulocytes % (auto) 1.6 %; Lymphocytes # (auto) 1.39 K/uL (1.2-3.4); Lymphocytes % (auto) 19.8 %; Mean Corpuscular Hemoglobin 33.2 pg (25.0-34.0); Mean Corpuscular Hgb Conc 31.7 g/dL (32.0-36.0); Mean Corpuscular Volume 104.9 fL (80.0-100.0); Mean Platelet Volume 12.8 fL (9.4-12.4); Monocytes # (auto) 0.87 K/uL (0.24-0.82); Monocytes % (auto) 12.4 %; Neutrophils # (auto) 4.38 K/uL (1.4-6.5); Neutrophils % (auto) 62.3 %; Nucleated RBC # (auto) 0.14 K/uL (0-0); Platelet Count 171 K/uL (130-400); RDW Coefficient of Variation 15.1 % (11.5-14.5); RDW Standard Deviation 55.8 fL (36.4-46.3); Red Blood Count 2.68 M/uL (4.63-6.08); White Blood Count 7.03 K/ul (4.8-10.8)
[2021-10-16 06:16] LABS: Alanine Aminotransferase 8 U/L (7-52); Albumin Level 2.8 gm/dl (3.4-5.0); Alkaline Phosphatase 131 U/L (34-104); Anion Gap 11 (3-11); Aspartate Aminotransferase 69 U/L (13-39); BUN Creatinine Ratio 9.1 (10-20); Bilirubin Direct 2.1 mg/dl (0-0.2); Bilirubin,Total 3.5 mg/dl (0.2-1.0); Blood Urea Nitrogen 5 mg/dl (6-23); Calcium 6.7 mg/dl (8.5-10.1); Carbon Dioxide 28 mmol/L (21-32); Chloride 99 mmol/L (98-107); Creatinine Clr Calc Pharmacy 257.9 ml/min; Est GFR (African American) > 150.0 ml/min; Est GFR (Non-African American) 133.1 ml/min; Glucose 104 mg/dl (70-99(Fasting)); Phosphorus 1.9 mg/dl (2.5-4.9); Potassium 3.2 mmol/L (3.5-5.1); Sodium 138 mmol/L (136-145); Total Protein 6.5 gm/dl (6.0-8.3)
[2021-10-16] MEDS ORDERED: POTASSIUM PHOS 3 MMOL/1 ML INFUSION IV STA (06:28)
--- NOTE | 2021-10-16 06:59 | Critical Care Progress Note ---
Date of Service October 16, 2021 Assessment & Plan (1) Cellulitis of right leg: (2) Hypomagnesemia: (3) Sepsis: (4) Delirium tremens: (5) Hypokalemia: (6) Alcohol withdrawal: (7) Elevated lactic acid level: (8) Fever: (9) Alcoholic hepatitis: (10) Alcohol use disorder: Plan Impression: 36-year-old male with history of alcohol abuse presents to the ICU with alcohol withdrawal and sepsis With cellulitis to the right lower extremity Neuro: Encephalopathy -patient with EtOH 252 on admission. UDS negative -History of 2 admissions to the ICU for DTs and 1 episode of alcohol withdrawal seizure on prior admissions. -Continue with CIWA protocol with Ativan -Continue with thiamine, folate acid, Multivitamin -Will try to wean off phenobarb, for now scheduled phenobarb 60mg x3, then 30mg x3. Opioid abuse disorder -continue Suboxone Cardiac: Tachycardia -likely symptom of withdrawal plus sepsis -No history of heart disease -Continue to monitor on telemetry Elevated troponin -EKG does not show any changes in the ST or T waves. Sinus tachycardia appreciated. -Likely type II TX from demand ischemia -Continue to monitor HTN -hold lisinopril for now. Monitor Respiratory: -No history of pulmonary disease. Current smoker -Smoking approximately 15 cigarettes/day. Continuous monitoring on pulse ox. O2 supplementation to keep oxygen saturation around 92% GI: Transaminitis - AST/ALT as well as alk phos are trending down or plateauing,T bili peaked to 4.5 but trended down to 3.5 -> continue to monitor Fatty liver diseaselikely secondary to alcohol abuse. INR within normal limits. CT abdomen and Pelvis with hepatic steatosis and hepatomegaly Hepatitis panel pending. Start on diet if patient able to tolerate, if not continue normosol at 100ml/hr. RENAL/LYTES - Creatinine within normal limits Hypokalemia/Hypophosphatemia: Replenished 30meq KPhos this AM. Trend BMP and Phos. HAGMA: Likely sec to lactic acidosis Monitor Lactic acidosis improving. Continue to monitor - Foleystrict I's and O's ENDO - No history of diabetes or thyroid disease. ICU hyperglycemic protocol HEME - Macrocytic anemia likely from alcohol abuse Folate 11.54, B12 816, reticulocyte 0.11. Receiving Folic acid daily. Continue to monitor H&H ID - Sepsislikely source of cellulitis and impetigo of the right lower extremity Follow blood cultures - negative after first 24hrs. CT right lower extremity does not show any signs of necrotizing fasciitis. Procalcitonin 0.32, Covid-19 NAAT negative, nasal MRSA negative, CPK 291 Tylenol as needed for fever Switched from Vancomycin/Zosyn to Vancomycin + Ceftriaxone. [place] called and informed of patient's presentation and condition - low suspicion for monkeypox virus. Precautions D/C'ed. Around noon per nurse RLE cold to touch, weak pulse, sluggish response - ordered US duplex. VTE: Prophylaxis Lovenox GI: Protonix, NPO Lines: Peripheral Admission and Anticipated Discharge Date Admission Date: October 14, 2021 Supervising Physician Co-Signing Physician Notes Dr. Brown was resident physician during care of patient. I separately evaluated patient for valentin portions of the history and the exam. I was present during the critical portion of medical decision making, and I discussed the case with the resident. I generally agree with the findings and plan. Still has significant cellulitis with fever, continue vancomycin and Rocephin. Adding oral phenobarb 60 mg twice daily x3 doses then 30 mg twice daily x3 doses. Attempt to wean off phenobarbital. Start diet. Subjective Patient seen at the bedside today difficult to assess how patient's feeling due to mental state. Review of Systems Constitutional: as per Subjective / HPI Physical Exam Constitutional: WD/WN, vitals as above Resting in bed, at times mumbling or wanting to move. Respiratory: normal respiratory effort, lungs clear to auscultation Cardiovascular: Rate/Rhythm: + tachycardic Heart Sounds: normal S1 and normal S2 Extremities: + edema (1+) Skin: Dressing over R lower leg covering rash. Erythema has not progressed past line of demarcation drawn previously. Results & Data Results & Data ([facility]) Vital Signs (Past 12 Hours) Vital Signs Temp Pulse Resp BP Pulse Ox O2 Del Method O2 Flow Rate 10/16/21 05:30 38.8 C H 10/16/21 06:00 85 30 H 98 10/16/21 06:00 176/106 H 10/16/21 05:30 89 29 H 98 10/16/21 05:03 172/102 H 10/16/21 05:03 86 26 H 92 10/16/21 05:00 88 30 H 96 10/16/21 04:30 38.9 C H 87 26 H 95 10/16/21 04:00 38.9 C H 88 26 H 99 10/16/21 04:00 184/109 H 10/16/21 03:30 38.9 C H 88 25 H 97 10/16/21 03:00 38.9 C H 88 26 H 98 10/16/21 03:00 176/112 H 10/16/21 02:30 38.6 C H 106 H 20 93 10/16/21 02:00 38.2 C H 88 31 H 97 10/16/21 02:00 188/95 H 10/16/21 01:30 38.4 C H 88 29 H 97 10/16/21 01:01 174/83 H 10/16/21 01:01 39.2 C H 90 15 95 10/16/21 01:00 39.2 C H 89 32 H 98 10/16/21 00:30 38.1 C H 90 30 H 99 10/16/21 03:38 91 H 10/16/21 00:17 Oxymask 10 10/16/21 00:00 39.2 C H 89 29 H 98 10/16/21 00:00 190/112 H 10/15/21 23:30 39.2 C H 90 29 H 77 L 10/15/21 23:00 38.9 C H 89 14 100 10/15/21 23:00 176/110 H 10/15/21 22:30 38.3 C H 87 L 10/15/21 22:01 164/100 H 10/15/21 22:01 37.5 C 87 25 H 88 L 10/15/21 22:00 37.8 C H 86 23 87 L 10/15/21 21:30 36.8 C 86 27 H 76 L 10/15/21 21:30 176/102 H 10/15/21 21:00 38.3 C H 85 27 H 92 10/15/21 20:30 38.3 C H 84 24 98 10/15/21 20:01 38.2 C H 85 22 98 10/15/21 20:01 171/92 H 10/15/21 20:00 38.2 C H 82 37 H 98 10/15/21 19:30 38.2 C H 82 25 H 97 10/15/21 19:00 38.1 C H 67 H 85 L 10/15/21 19:00 187/138 H Resident Activity Tracking Resident Involvement: Resident Care Provided Care Provided: Adult [facility] Medicine
[2021-10-16] MEDS ORDERED: POTASSIUM PHOSPHATE 30 MMOL in SODIUM CHLORIDE 0.9% 500 ML IV ONE (07:00)
[2021-10-16] MEDS: THIAMINE HCL 100 MG in SYRINGE 9 ML IV SCH (08:44)
[2021-10-16] MEDS: FOLIC ACID 1 MG in SYRINGE 9.8 ML IV SCH (08:44)
[2021-10-16] MEDS: ENOXAPARIN INJ 40 MG/0.4 ML SYR SQ SCH ×2 (08:45→20:57)
[2021-10-16] MEDS ORDERED: LACTULOSE SYRUP 30 GM/45 ML UDP PO STA (09:49)
[2021-10-16] MEDS: lisinopril 20 MG TAB PO SCH (10:03)
[2021-10-16] MEDS: PANTOprazole 40 MG TAB PO SCH (10:03)
--- NOTE | 2021-10-16 11:04 | Pharmacy Report ---
Pharmacy Vanc AUC Short Note - Date of Service October 16, 2021 - Assessment & Plan Assessment * 36 year old M receiving VANCOMYCIN for treatment of sepsis secondary to RLE cellulitis. Vancomycin dosing per pharmacy. Patient is also receiving Ceftriaxone IV. * Pertinent microbiologic data includes: RLE wound cx pending (no organisms seen on gram stain); negative MRSA nasal swab; no growth in BLCXs to date * Patient remains febrile, however no leukocytosis noted on labs. Active EtOH withdrawal symptoms being treated with lorazepam, phenobarb and dexmedetomidine. * Day # 3 of antimicrobial therapy. Plan Vancomycin * AUC/LURDES is the preferred PK/PD target for vancomycin * AUC guided dosing is effective and associated with decreased risk of nephrotoxicity compared to traditional trough targets * Random level of 13.2 mcg/mL obtained this AM ~ 5.5 hours after last dose. * Will increase maint dose to 1750mg IV Q 12 hrs as this dose is predicted to achieve target AUC/LURDES of 400-600 mg/L.hr and may be associated with a 10 % risk of nephrotoxicity * Will recheck trough level in 24-48 hrs if therapy to continue. Pharmacy will continue to follow and will adjust dose/frequency as necessary. Thank you.
[2021-10-16] MEDS: PHENobarbitaL 30 MG TAB PO SCH ×2 (11:08→21:03)
[2021-10-16] MEDS ORDERED: VANCOMYCIN LEVEL ONE (11:30)
[2021-10-16] MEDS: NORMOSOL-R 1,000 ML IV SCH ×2 (12:21→20:54)
[2021-10-16] MEDS: VANCOMYCIN HCL 1,750 MG in SODIUM CHLORIDE 0.9% 500 ML IV SCH (12:21)
--- NOTE | 2021-10-16 13:39 | Ultrasound Report ---
BILATERAL LOWER EXTREMITY ARTERIAL DOPPLER ULTRASOUND CLINICAL HISTORY: Cold extremities. COMPARISON STUDY: No previous studies for comparison. TECHNIQUE: Color and duplex Doppler sonography of the arterial systems of both lower extremities was performed. FINDINGS: This exam was technically difficult to obtain. No elevated velocities were identified withi n the lower extremities. There is predominantly triphasic flow within the lower extremities. Note was made of biphasic flow within the right anterior tibial artery. IMPRESSION: Technically difficult exam but no vessel occlusion identified. No evidence for a hemodyn amically significant stenosis. ACT 112: Negative or not required by law. Electronically signed by: Rogerio Rouse M.D. 10/16/2021 1:38 PM
[2021-10-16] MEDS: cefTRIAXone SODIUM 2,000 MG in DEXTROSE 5% 50 ML IV SCH (13:56)
[2021-10-16] MEDS ORDERED: RAPID SEQUENCE INDUCTION BAG ONE (16:19)
[2021-10-16] MEDS ORDERED: MIDAZOLAM HCL 125MG/250ML D5W ONE (16:27)
[2021-10-16] MEDS: MIDAZOLAM BOLUS FROM BAG IV PRN ×3 (16:30→20:01)
[2021-10-16] MEDS: MIDAZOLAM HCL 125 MG/250 ML BAG IV PRN (16:30)
[2021-10-16] MEDS: ACETAMINOPHEN 1,000 MG/100 ML VIAL IV PRN (17:14)
--- NOTE | 2021-10-16 17:27 | Communication Note ---
Date of Service: October 16, 2021 I was alerted to patient had pulled his IV that was infusing Precedex, became agitated, likely aspirated and was hypoxic. Patient required IV boluses of s edation and he did not really respond to [id number] ventilation so he was intubated for acute hypoxic respiratory failure secondary to aspiration pneumonitis. We are transitioning to benzodiazepine sedation and will continue with mechanical ventilation and his current antibiotics, I believe this is related to an aspiration pneumonitis given the acuity of the events and the preceding events, I do not feel anaerobic coverage is necessitated at this time. I have personally spent 50 minutes of critical care time in the direct management of this patient. This is a life/limb threatening event. This includes time spent evaluating patient, direct bedside care, chart review, placing orders, interpretation of diagnostic studies, discussion with consultants, patient, and/or family members regarding treatment decisions, as well as other required patient management activities. This time is exclusive of all separately billable procedures, and teaching time and separate from and in addition to any other critical care service time. Coding Level of Care Code Critical Care [email or web address] [email or web address]'l 30 min
--- NOTE | 2021-10-16 17:28 | Procedure Note ---
Procedure Note Date of Service October 16, 2021 Note Procedure Date: Noted above Procedure: Endotracheal intubation Pre-procedure Diagnosis: Acute hypoxic respiratory failure after aspiration/aspiration pneumonitis Post-procedure Diagnosis: same as above Prior to Procedure: Informed Consent: emergent Attending Staff: Lobo Ray DO The identity of the patient was confirmed and a bedside time out was performed. Description of Procedure: Patient was evaluated and required intubation for impending respiratory failure. The patient was prepared in the usual fashion. A 4 MAC laryngoscope was used. A 8.5 mm inner diameter endotrachial tube was placed endotracheally to 24 cm at the teeth. A grade 1 view was obtained with posterior cricoid pressure. The endotracheal tube was noted to pass through the vocal cords. Chest rise was bilateral. Bilateral breath sounds were heard without air sounds in the abdomen. Mist was noted in the endotracheal tube. End-tidal CO2 measurement was positive. Chest x-ray shows proper endotracheal tube placement. Complications: None Findings: Not applicable Specimens: Not applicable Estimated blood loss: Zero Coding
[2021-10-16] MEDS ORDERED: MIDAZOLAM HCL 5 MG/ML 1 ML VIAL IV STA (17:35)
--- NOTE | 2021-10-16 18:09 | XRay Report ---
SINGLE VIEW CHEST CLINICAL HISTORY: Respiratory failure. Intubation. FINDINGS: 2 AP, portable, supine chest radiographs are compared to study dated 10/14/2021. Correlation is made with chest CT dated 10/01/[address] dated 10/14/2021. An endotracheal tube has bee n placed. The tip of the catheter projects approximately 4.5 cm above the natalya. An enteric tube has been placed. This projects below the diaphragm over the stomach. The heart appears mildly enlarged. There is pulmonary vascular congestion. Perihilar opacities are seen bilaterally. No large pleural ef fusion or pneumothorax is identified. The bony thorax is grossly intact. IMPRESSION: 1. Endotracheal and enteric tubes have been placed as above. 2. Cardiomegaly with pulmonary vascular congestion. 3. Perihilar airspace opacities likely represent pulmonary edema. This has worsened as compared to . Correlate clinically for evidence of an infectious/inflammatory pneumonitis. 4. No large pleural effusion is identified. ACT 112: Negative or not required by law. Electronically signed by: Nick Iverson M.D. 10/16/2021 6:06 PM
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
[2021-10-17] MEDS: VANCOMYCIN HCL 1,750 MG in SODIUM CHLORIDE 0.9% 500 ML IV SCH ×2 (00:12→11:42)
[2021-10-17] MEDS: NORMOSOL-R 1,000 ML IV SCH ×3 (00:18→20:07)
[2021-10-17] MEDS: MIDAZOLAM HCL 125 MG/250 ML BAG IV PRN ×2 (01:02→01:51)
[2021-10-17] MEDS: MIDAZOLAM BOLUS FROM BAG IV PRN ×2 (01:52→07:59)
[2021-10-17] MEDS ORDERED: STAT IV Infusion **Titration per Protocol STA (02:01)
[2021-10-17] MEDS ORDERED: PROPOFOL BOLUS FROM BAG IV PRN (02:01)
[2021-10-17] MEDS ORDERED: PROPOFOL IV EMULSION 10 MG/ML 100 ML VIAL IV ONE (02:02)
[2021-10-17] MEDS: propofoL 1,000 MG/100 ML VIAL IV SCH ×3 (02:13→06:44)
[2021-10-17 04:23] LABS: iSTAT Allen Test Pass; iSTAT Art Bld Gas pCO2 Correct 40 mmHg (35-46); iSTAT Art Bld Gas pH Corrected 7.459 (7.35-7.45); iSTAT Arterial Blood Gas HCO3 28 meg/L (19-24); iSTAT Arterial Blood Gas pCO2 38 mmHg (35-46); iSTAT Arterial Blood Gas pH 7.48 (7.35-7.45); iSTAT Arterial Blood Gas pO2 53 mmHg (80-95); iSTAT Arterial Blood Gas pO2 C 58; iSTAT Carbon Dioxide 29 mmol/L (24-31); iSTAT FiO2 30 %; iSTAT Hematocrit 27 % (42-52); iSTAT Hemoglobin 9.2 g/dl (14.0-18.0); iSTAT Site R Radial; iSTAT Sodium 140 mmol/L (135-144)
[2021-10-17 05:51] LABS: Basophils # (auto) 0.09 K/uL (0-0.2); Basophils % (auto) 1.2 %; Eosinophils # (auto) 0.13 K/uL (0-0.50); Eosinophils % (auto) 1.8 %; Hematocrit (blood only) 26.3 % (40.1-51.0); Immature Granulocytes # (auto) 0.09 K/uL (0.00-0.02); Immature Granulocytes % (auto) 1.2 %; Lymphocytes # (auto) 1.17 K/uL (1.2-3.4); Mean Corpuscular Hemoglobin 33.3 pg (25.0-34.0); Mean Corpuscular Hgb Conc 30.4 g/dL (32.0-36.0); Mean Corpuscular Volume 109.6 fL (80.0-100.0); Mean Platelet Volume 12.4 fL (9.4-12.4); Monocytes # (auto) 1.01 K/uL (0.24-0.82); Monocytes % (auto) 13.8 %; Neutrophils # (auto) 4.83 K/uL (1.4-6.5); Nucleated RBC # (auto) 0.04 K/uL (0-0); Nucleated RBC % (auto) 0.5 %; Platelet Count 184 K/uL (130-400); RDW Coefficient of Variation 16.5 % (11.5-14.5); RDW Standard Deviation 64.7 fL (36.4-46.3); White Blood Count 7.32 K/ul (4.8-10.8)
[2021-10-17 06:04] LABS: INR 1.2 (0.9-1.1); Partial Thromboplastin Ratio 0.9; Prothrombin Time 12.3 Seconds (9.0-12.0)
[2021-10-17 06:15] LABS: Alanine Aminotransferase 7 U/L (7-52); Albumin Globulin Ratio 0.7 (0.9-2); Albumin Level 2.5 gm/dl (3.4-5.0); Alkaline Phosphatase 127 U/L (34-104); Anion Gap 11 (3-11); Aspartate Aminotransferase 78 U/L (13-39); BUN Creatinine Ratio 7.7 (10-20); Bilirubin,Total 2.9 mg/dl (0.2-1.0); Blood Urea Nitrogen 4 mg/dl (6-23); Calcium 6.4 mg/dl (8.5-10.1); Carbon Dioxide 28 mmol/L (21-32); Chloride 101 mmol/L (98-107); Creatinine Clr Calc Pharmacy 271.3 ml/min; Est GFR (African American) > 150.0 ml/min; Est GFR (Non-African American) 136.2 ml/min; Globulin 3.5 gm/dl (2.5-4.0); Glucose 78 mg/dl (70-99(Fasting)); Phosphorus 1.7 mg/dl (2.5-4.9); Potassium 3.3 mmol/L (3.5-5.1); Sodium 140 mmol/L (136-145)
[2021-10-17] MEDS ORDERED: POTASSIUM PHOS 3 MMOL/1 ML INFUSION IV STA (06:38)
--- NOTE | 2021-10-17 06:59 | Critical Care Progress Note ---
Date of Service October 17, 2021 Assessment & Plan (1) Cellulitis of right leg: (2) Hypomagnesemia: (3) Sepsis: (4) Delirium tremens: (5) Hypokalemia: (6) Alcohol withdrawal: (7) Elevated lactic acid level: (8) Fever: (9) Alcoholic hepatitis: (10) Alcohol use disorder: Plan Impression: 36-year-old male with history of alcohol abuse presents to the ICU with alcohol withdrawal and sepsis With cellulitis to the right lower extremity Neuro: Weaning off Versed for trial of extubation. Encephalopathy -patient with EtOH 252 on admission. UDS negative -History of 2 admissions to the ICU for DTs and 1 episode of alcohol withdrawal seizure on prior admissions. -Continue with CIWA protocol with Ativan -Continue with thiamine, folate acid, Multivitamin -Will try to wean off phenobarb, for now scheduled phenobarb 60mg x3, then 30mg x3. Opioid abuse disorder -continue Suboxone Cardiac: Tachycardia -likely symptom of withdrawal plus sepsis -No history of heart disease -Continue to monitor on telemetry Elevated troponin -EKG does not show any changes in the ST or T waves. Sinus tachycardia appreciated. -Likely type II AK from demand ischemia -Continue to monitor HTN -hold lisinopril for now. Monitor Respiratory: Acute hypoxic respiratory failure 2/2 Aspiration Pneumonitis -Patient had episode of agitation with probable aspiration, worsening respiratory failure non-responsive to bag-valve mask. -Patient was sedated and intubated with good oxygenation. -Trial of extubation today. -Wean off O2 as tolerated, continue to monitor. Current smoker -Smoking approximately 15 cigarettes/day. Continuous monitoring on pulse ox. O2 supplementation to keep oxygen saturation around 92% GI: Transaminitis - AST/ALT as well as alk phos are trending down or plateauing,T bili peaked to 4.5 but trended down to 2.9 -> continue to monitor Fatty liver diseaselikely secondary to alcohol abuse. INR within normal limits. CT abdomen and Pelvis with hepatic steatosis and hepatomegaly Hepatitis panel pending. Start on diet if patient able to tolerate, if not continue normosol at 100ml/hr. RENAL/LYTES - Creatinine within normal limits Hypokalemia/Hypophosphatemia: Replenished 80meq KCl, 30mmol KPhos this AM. Trend BMP and Phos. HAGMA: Likely sec to lactic acidosis Monitor Lactic acidosis improving. Continue to monitor - Foleystrict I's and O's ENDO - No history of diabetes or thyroid disease. ICU hyperglycemic protocol HEME - Macrocytic anemia likely from alcohol abuse Folate 11.54, B12 816, reticulocyte 0.11. Receiving Folic acid daily. Continue to monitor H&H ID - Sepsislikely source of cellulitis and impetigo of the right lower extremity Blood and urine cultures negative, wound culture reincubating. CT right lower extremity does not show any signs of necrotizing fasciitis. Procalcitonin 0.32, Covid-19 NAAT negative, nasal MRSA negative, CPK 291 Ordered repeat cultures, procalcitonin for persistent fevers over past day, however may be more likely from aspiration. Tylenol as needed for fever Switched from Vancomycin/Zosyn to Vancomycin + Ceftriaxone. [facility] called and informed of patient's presentation and condition - low suspicion for monkeypox virus. Precautions D/C'ed. Around noon per nurse RLE cold to touch, weak pulse, sluggish response - Duplex US negative for occlusion or DVT. VTE: Prophylaxis Lovenox GI: Protonix, NPO Lines: Peripheral Admission and Anticipated Discharge Date Admission Date: October 14, 2021 Supervising Physician Co-Signing Physician Notes Dr. Brown was resident physician during care of patient. I separately evaluated patient for valentin portions of the history and the exam. I was present during the critical portion of medical decision making, and I discussed the case with the resident. I generally agree with the findings and plan. Plan to extubated today. Transition to phenobarbital for alcohol withdraw, repeat blood culture and procalcitonin for continued febrility however I think that was secondary to the aspiration event and he is currently on appropriate antibiotic coverage for skin and soft tissue infection which would also cover most other pathogens. I have personally spent 45 minutes of critical care time in the direct management of this patient. This is a life/limb threatening event. This includes time spent evaluating patient, direct bedside care, chart review, placing orders, interpretation of diagnostic studies, discussion with consultants, patient, and/or family members regarding treatment decisions, as well as other required patient management activities. This time is exclusive of all separately billable procedures, and teaching time and separate from and in addition to any other critical care service time. Subjective Patient seen at the bedside this morning, sedated, unable to elicit subjective. Review of Systems Constitutional: as per Subjective / HPI Physical Exam Constitutional: WD/WN, vitals as above Respiratory: normal respiratory effort, lungs clear to auscultation Cardiovascular: Rate/Rhythm: + tachycardic Heart Sounds: normal S1 and normal S2 Extremities: + edema (1+) Gastrointestinal (Abdomen): Obese habitus, BS+, soft. Skin: Dressing over R lower leg covering rash. Erythema has not progressed past line of demarcation drawn previously. Neurologic: Patellar DT reflexes 1+ bilaterally. Results & Data Results & Data ([facility]) Vital Signs (Past 12 Hours) Vital Signs Temp Pulse Resp BP Pulse Ox O2 Del Method FiO2 10/17/21 06:01 38.1 C H 125/90 10/17/21 06:01 110 H 29 H 99 10/17/21 06:00 111 H 37 H 98 10/17/21 05:30 103 H 25 H 100 10/17/21 05:04 137/96 10/17/21 05:04 104 H 27 H 99 10/17/21 05:00 103 H 22 100 10/17/21 04:30 103 H 30 H 100 10/17/21 04:01 107 H 32 H 95 10/17/21 04:01 157/99 H 10/17/21 04:00 107 H 36 H 96 10/17/21 03:30 103 H 33 H 94 10/17/21 03:24 133/91 10/17/21 03:24 107 H 33 H 100 10/17/21 04:00 30 10/17/21 03:33 105 H 33 H 94 30 10/17/21 03:26 112 H 10/17/21 03:01 38.3 C H 137/113 H 10/17/21 03:01 112 H 36 H 99 10/17/21 03:00 110 H 27 H 99 10/17/21 02:30 118 H 32 H 78 L 10/17/21 02:10 113 H 32 H 10/17/21 02:10 141/88 H 10/17/21 02:00 125 H 37 H 10/17/21 01:30 99 H 31 H 98 10/17/21 01:01 99 H 33 H 97 10/17/21 01:01 148/91 H 10/17/21 01:00 100 H 31 H 97 10/17/21 00:30 99 H 33 H 98 10/17/21 00:01 93 H 26 H 96 10/17/21 00:01 129/81 10/17/21 00:00 92 H 30 H 96 10/16/21 23:46 126/79 10/16/21 23:46 87 24 95 10/16/21 23:40 88 25 H 94 10/16/21 23:01 92 H 31 H 95 10/16/21 23:01 135/85 10/16/21 23:00 89 26 H 94 10/16/21 22:30 102 H 35 H 92 10/17/21 00:00 35 10/16/21 22:49 89 30 H 95 35 10/16/21 22:01 134/89 10/16/21 22:01 92 H 23 99 10/16/21 22:00 96 H 27 H 98 10/16/21 21:30 86 22 99 10/16/21 21:01 85 21 99 10/16/21 21:01 140/86 10/16/21 21:00 38.2 C H 85 23 98 10/16/21 20:30 91 H 29 H 98 10/16/21 20:00 85 24 98 10/16/21 20:00 160/91 H 10/16/21 19:30 86 24 99 10/16/21 19:24 150/94 H 10/16/21 19:24 86 26 H 98 10/16/21 19:01 89 29 H 100 10/16/21 19:01 145/92 H 10/16/21 19:00 89 28 H 100 10/16/21 22:25 Mechanical Vent 10/16/21 20:00 50 10/16/21 19:58 20 50 10/16/21 19:09 87 25 H 99 60 Resident Activity Tracking Resident Involvement: Resident Care Provided Care Provided: Adult Hospital Medicine
[2021-10-17] MEDS ORDERED: POTASSIUM PHOSPHATE 30 MMOL in SODIUM CHLORIDE 0.9% 500 ML IV ONE (07:00)
[2021-10-17] MEDS: ENOXAPARIN INJ 40 MG/0.4 ML SYR SQ SCH ×2 (08:22→20:07)
[2021-10-17] MEDS: FOLIC ACID 1 MG in SYRINGE 9.8 ML IV SCH (08:23)
[2021-10-17] MEDS: lisinopril 20 MG TAB PO SCH (08:23)
[2021-10-17] MEDS: PANTOprazole 40 MG TAB PO SCH (08:23)
[2021-10-17] MEDS: THIAMINE HCL 100 MG in SYRINGE 9 ML IV SCH (08:24)
[2021-10-17] MEDS: PHENobarbitaL 30 MG TAB PO SCH (08:24)
--- NOTE | 2021-10-17 09:40 | Billing Data ---
Date of Service October 17, 2021 Coding Level of Care Code Critical Care 04 15- mins
[2021-10-17] MEDS ORDERED: POTASSIUM CHLORIDE 20 MEQ/15 ML UDC PO ONE (09:45)
[2021-10-17 09:47] LABS: HBSAG NON-REACTIVE (NON-REACTIVE); Hepatitis A Antibody IgM NON-REACTIVE (NON-REACTIVE); Hepatitis B Core Antibody IgM NON-REACTIVE (NON-REACTIVE)
[2021-10-17] MEDS ORDERED: VANCOMYCIN LEVEL ONE (11:30)
[2021-10-17] MEDS ORDERED: PHENobarbital sodium 65 MG/ML VIAL IM ONE (12:33)
[2021-10-17] MEDS: cefTRIAXone SODIUM 2,000 MG in DEXTROSE 5% 50 ML IV SCH (14:58)
--- NOTE | 2021-10-17 15:14 | Pharmacy Report ---
Pharmacy Vanc AUC Short Note - Date of Service October 17, 2021 - Assessment & Plan Assessment * 36 year old M receiving VANCOMYCIN for treatment of sepsis secondary to RLE cellulitis. Vancomycin dosing per pharmacy. Patient is also receiving Ceftriaxone IV. * Pertinent microbiologic data includes: RLE wound cx pending (pin-point growth noted); negative MRSA nasal swab; no growth in BLCXs to date ; urine cx collected today -pending * Patient remains febrile, however no leukocytosis noted on labs. Active EtOH withdrawal symptoms being treated with phenobarb at this time. * Day # 4 of antimicrobial therapy. Plan Vancomycin * AUC/LURDES is the preferred PK/PD target for vancomycin * AUC guided dosing is effective and associated with decreased risk of nephrotoxicity compared to traditional trough targets * Trough level of 8.6 mcg/mL obtained prior to 3rd dose of 1750mg Q 12 hrs. Level was drawn at appropriate time and prior doses hung per schedule. * Will increase maint dose to 1500mg IV Q 8 hrs as this dose is predicted to achieve target AUC/LURDES of 400-600 mg/L.hr and may be associated with a 10 % risk of nephrotoxicity * Will recheck trough level in 24-48 hrs if therapy to continue. Pharmacy will continue to follow and will adjust dose/frequency as necessary. Thank you.
[2021-10-17] MEDS ORDERED: PHENobarbital sodium 65 MG/ML VIAL IM SCH (16:00)
[2021-10-17] MEDS: SODIUM CHLORIDE 0.9% IV SCH ×2 (17:29→21:10)
[2021-10-17] MEDS: PHENOBARBITAL SODIUM IV SCH ×2 (17:29→21:10)
[2021-10-17] MEDS: VANCOMYCIN HCL 1,500 MG in SODIUM CHLORIDE 0.9% 500 ML IV SCH (20:07)
[2021-10-17] MEDS ORDERED: PHENobarbitaL 30 MG TAB PO SCH (21:00)
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
[2021-10-17] MEDS: PHENobarbital sodium 65 MG/ML VIAL IV PRN (23:44)
[2021-10-17] MEDS: METOPROLOL TARTRATE 1 MG/ML VIAL IV SCH (23:44)
[2021-10-18] MEDS ORDERED: LORazepam 2 MG in SYRINGE 1 ML IV STA (01:49)
[2021-10-18] MEDS: ACETAMINOPHEN 65 ML IV PRN (02:42)
[2021-10-18] MEDS: VANCOMYCIN HCL 1,500 MG in SODIUM CHLORIDE 0.9% 500 ML IV SCH (03:07)
[2021-10-18 06:11] LABS: Basophils # (auto) 0.09 K/uL (0-0.2); Basophils % (auto) 0.8 %; Eosinophils # (auto) 0.02 K/uL (0-0.50); Eosinophils % (auto) 0.2 %; Hematocrit (blood only) 28.6 % (40.1-51.0); Hemoglobin 8.5 g/dl (14.0-18.0); Immature Granulocytes % (auto) 1.8 %; Lymphocytes # (auto) 0.77 K/uL (1.2-3.4); Lymphocytes % (auto) 6.8 %; Mean Corpuscular Hemoglobin 32.4 pg (25.0-34.0); Mean Corpuscular Hgb Conc 29.7 g/dL (32.0-36.0); Mean Corpuscular Volume 109.2 fL (80.0-100.0); Mean Platelet Volume 12.2 fL (9.4-12.4); Monocytes # (auto) 0.86 K/uL (0.24-0.82); Monocytes % (auto) 7.6 %; Neutrophils # (auto) 9.39 K/uL (1.4-6.5); Neutrophils % (auto) 82.8 %; Nucleated RBC # (auto) 0.04 K/uL (0-0); Nucleated RBC % (auto) 0.4 %; Platelet Count 230 K/uL (130-400); RDW Coefficient of Variation 17.1 % (11.5-14.5); RDW Standard Deviation 66.4 fL (36.4-46.3); Red Blood Count 2.62 M/uL (4.63-6.08); White Blood Count 11.33 K/ul (4.8-10.8)
[2021-10-18] MEDS: METOPROLOL TARTRATE 1 MG/ML VIAL IV SCH ×4 (06:12→23:54)
[2021-10-18] MEDS: NORMOSOL-R 1,000 ML IV SCH ×2 (06:13→21:59)
--- NOTE | 2021-10-18 07:08 | Critical Care Progress Note ---
Date of Service October 18, 2021 Assessment & Plan (1) Cellulitis of right leg: (2) Hypomagnesemia: (3) Sepsis: (4) Delirium tremens: (5) Hypokalemia: (6) Alcohol withdrawal: (7) Elevated lactic acid level: (8) Fever: (9) Alcoholic hepatitis: (10) Alcohol use disorder: Plan Impression: 36-year-old male with history of alcohol abuse presents to the ICU with alcohol withdrawal and sepsis With cellulitis to the right lower extremity Neuro: Weaning off Versed for trial of extubation. Encephalopathy -patient with EtOH 252 on admission. UDS negative -History of 2 admissions to the ICU for DTs and 1 episode of alcohol withdrawal seizure on prior admissions. -Continue with CIWA protocol with Ativan -Continue with thiamine, folate acid, Multivitamin -Now mostly out of the window of alcohol withdrawal, lingering encephalopathy may have more opioid withdrawal component at this point. -Will try to wean off phenobarb, for now scheduled phenobarb 65mg x3 q8h. Opioid abuse disorder -trial Suboxone SL if able to tolerate/non-aggressive. Cardiac: Tachycardia -likely symptom of withdrawal plus sepsis -No history of heart disease -Lopressor increased from 5mg to 10mg q6 IV -Continue to monitor on telemetry Elevated troponin -EKG does not show any changes in the ST or T waves. Sinus tachycardia appreciated. -Likely type II IA from demand ischemia -Continue to monitor HTN -hold lisinopril for now. Monitor Respiratory: Acute hypoxic respiratory failure 2/2 Aspiration Pneumonitis -Patient had episode of agitation with probable aspiration, worsening respiratory failure non-responsive to bag-valve mask. -Patient was sedated and intubated with good oxygenation. -Patient extubated 10/17, on BiPAP. -Wean off O2 as tolerated, continue to monitor. Current smoker -Smoking approximately 15 cigarettes/day. Continuous monitoring on pulse ox. O2 supplementation to keep oxygen saturation around 92% GI: Transaminitis - AST/ALT as well as alk phos are trending down or plateauing,T bili peaked to 4.5 but trended down to 2.9 -> continue to monitor Fatty liver diseaselikely secondary to alcohol abuse. INR within normal limits. CT abdomen and Pelvis with hepatic steatosis and hepatomegaly Hepatitis panel positive for Hep C reactive, pending HCV RNA test, will need to follow up outpatient for treatment. Can perform HIV testing in hospital. NPO, will start on diet when patient able to tolerate, if not continue normosol at 100ml/hr. RENAL/LYTES - Creatinine within normal limits Hypokalemia/Hypophosphatemia:Replenished 21mmol KPhos. Continue to trend. Hypocalcemia: Replenished 1g Calcium Gluconate. Continue to monitor. HAGMA: Likely sec to lactic acidosis Resolved. - Foleystrict I's and O's ENDO - No history of diabetes or thyroid disease. ICU hyperglycemic protocol HEME - Macrocytic anemia likely from alcohol abuse Folate 11.54, B12 816, reticulocyte 0.11. Receiving Folic acid daily. Continue to monitor H&H ID - SepsisLikely source of impetigo at start compounded with aspiration pneumonitis. Blood and urine cultures negative, wound culture growing MSSA. CT right lower extremity does not show any signs of necrotizing fasciitis. Covid-19 NAAT negative, nasal MRSA negative, CPK 291. Procalcitonin repeat 1.96. Likely aspiration pneumonitis causing fevers and continued tachycardia. Tylenol as needed for fever. On Ceftriaxone 2g q24h, D/C'ed Vancomycin given MSSA culture from wound, negative MRSA swab. [place] called and informed of patient's presentation and condition - low suspicion for monkeypox virus. Precautions D/C'ed. Hep C - Patient Hepatitis C positive, PCR positive. Can work up further with HIV testing. Liver enzymes stabilizing, T. bili trending down. F/u outpatient for further treatment. VTE: Prophylaxis Lovenox GI: Protonix, NPO Lines: Peripheral Dispo: ICU. Admission and Anticipated Discharge Date Admission Date: October 14, 2021 Supervising Physician Co-Signing Physician Notes Dr. Brown was resident physician during care of patient. I separately evaluated patient for valentin portions of the history and the exam. I was present during the critical portion of medical decision making, and I discussed the case with the resident. I generally agree with the findings and plan. Discontinue vancomycin single agent Rocephin for presumptive lung pathology as well as MSSA cellulitis. I would consider the lower extremity wounds to be impetigo, new diagnosis of hepatitis C will require follow-up with primary care provider as outpatient for possible Harvoni treatment. Will obtain HIV testing while in house. Patient's mental status marginally improved not as impulsive, will give 65 mg phenobarbital IV every 8 hours for today hopefully will decrease tomorrow. Given his recent aspiration he is not able to take p.o. secondary to decreased mental status. I feel that we are achieving control of the acute alcohol withdrawal but there is aspects of opiate withdrawal as he was on Suboxone therapy and that has been held during the course of this admission. Increase beta-asa to 10 mg every 6 hours IV. Will attempt Subutex sublingual today. Continued restraint: Bilateral mitts as patient is still hallucinating grabbing at medical equipment not redirectable. I have personally spent 50 minutes of critical care time in the direct management of this patient. This is a life/limb threatening event. This includes time spent evaluating patient, direct bedside care, chart review, placing orders, interpretation of diagnostic studies, discussion with consultants, patient, and/or family members regarding treatment decisions, as well as other required patient management activities. This time is exclusive of all separately billable procedures, and teaching time and separate from and in addition to any other critical care service time. Subjective Patient seen at the bedside today still hallucinating, calling me by the name "[place]", most likely the name of his former co-worker, telling me to get the coffee and not drop it this time. Review of Systems Constitutional: as per Subjective / HPI Physical Exam Constitutional: WD/WN, vitals as above Respiratory: Rhonchi in bilateral lung desir. Cardiovascular: Rate/Rhythm: + tachycardic Heart Sounds: normal S1 and normal S2 Extremities: + edema (1+) Gastrointestinal (Abdomen): normal bowel sounds, soft, nontender, no hepatosplenomegaly Skin: Dressing over R lower leg covering rash. Erythema has not progressed past line of demarcation drawn previously. Results & Data Results & Data ([facility]) Vital Signs (Past 12 Hours) Vital Signs Temp Pulse Resp BP Pulse Ox O2 Del Method FiO2 10/18/21 06:00 37.4 C 119 H 32 H 147/100 H 98 BiPAP 40 10/18/21 06:12 118 H 147/100 H 10/18/21 05:00 118 H 34 H 166/107 H 98 BiPAP 40 10/18/21 04:00 38.2 C H 124 H 34 H 171/124 H 98 BiPAP 40 10/18/21 03:19 127 H 40 H 100 40 10/18/21 03:00 127 H 42 H 170/109 H 98 BiPAP 40 10/18/21 02:00 39 C H 125 H 35 H 166/117 H 96 BiPAP 40 10/18/21 01:00 133 H 28 H 177/116 H 97 BiPAP 40 10/18/21 00:00 117 H 28 H 159/105 H 97 BiPAP 40 10/17/21 23:44 139 H 172/120 H 10/17/21 23:00 134 H 31 H 172/120 H 99 BiPAP 40 10/17/21 22:58 133 H 31 H 100 40 10/17/21 22:00 135 H 31 H 161/123 H 97 BiPAP 40 10/17/21 21:00 145 H 22 189/140 H 93 BiPAP 40 10/17/21 20:00 38 C H 130 H 24 164/113 H 100 BiPAP 40 10/17/21 20:00 BiPAP 40 10/17/21 19:21 133 H 40 H 100 40 Resident Activity Tracking Resident Involvement: Resident Care Provided Care Provided: Adult Hospital Medicine
[2021-10-18 07:16] LABS: Alanine Aminotransferase 8 U/L (7-52); Albumin Globulin Ratio 0.8 (0.9-2); Albumin Level 2.7 gm/dl (3.4-5.0); Alkaline Phosphatase 132 U/L (34-104); Anion Gap 15 (3-11); Aspartate Aminotransferase 59 U/L (13-39); Bilirubin,Total 2.8 mg/dl (0.2-1.0); Blood Urea Nitrogen 3 mg/dl (6-23); Calcium 6.3 mg/dl (8.5-10.1); Carbon Dioxide 22 mmol/L (21-32); Chloride 105 mmol/L (98-107); Creatinine Clr Calc Pharmacy 333.5 ml/min; Est GFR (African American) > 150.0 ml/min; Est GFR (Non-African American) 147.3 ml/min; Globulin 3.6 gm/dl (2.5-4.0); Glucose 115 mg/dl (70-99(Fasting)); Magnesium 1.9 mg/dl (1.7-2.4); Phosphorus 2.2 mg/dl (2.5-4.9); Potassium 3.8 mmol/L (3.5-5.1); Sodium 142 mmol/L (136-145); Total Protein 6.3 gm/dl (6.0-8.3)
[2021-10-18] MEDS: FOLIC ACID 1 MG in SYRINGE 9.8 ML IV SCH (08:00)
[2021-10-18] MEDS: ENOXAPARIN INJ 40 MG/0.4 ML SYR SQ SCH ×2 (08:00→19:54)
[2021-10-18] MEDS: THIAMINE HCL 100 MG in SYRINGE 9 ML IV SCH (08:01)
[2021-10-18 09:15] LABS: Hepatitis C Vira RNA (Log) PCR 3.86 Log IU/mL (NOT DETECTED); Hepatitis C Viral RNA by PCR 7300 IU/mL (NOT DETECTED)
[2021-10-18] MEDS ORDERED: POTASSIUM PHOS 3 MMOL/1 ML INFUSION IV STA (09:33)
[2021-10-18] MEDS: PANTOprazole 40 MG TAB PO SCH (09:51)
[2021-10-18] MEDS: lisinopril 20 MG TAB PO SCH (09:51)
--- NOTE | 2021-10-18 09:58 | Billing Data ---
Date of Service October 18, 2021 Coding Level of Care Code Critical Care 1st - mins
[2021-10-18] MEDS ORDERED: STAT IV STA (10:00)
[2021-10-18] MEDS ORDERED: CALCIUM GLUCONATE 10% 1,000 MG in DEXTROSE 5% 50 ML IV ONE (10:00)
[2021-10-18] MEDS ORDERED: POTASSIUM PHOSPHATE 21 MMOL in SODIUM CHLORIDE 0.9% 500 ML IV ONE (10:00)
[2021-10-18] MEDS ORDERED: BUPRENORPHINE/NALOXONE 8/2 MG TAB SL ONE (10:03)
[2021-10-18] MEDS: PANTOprazole 40 MG in SYRINGE 0 ML IV SCH (10:38)
--- NOTE | 2021-10-18 12:39 | XRay Report ---
SINGLE VIEW CHEST CLINICAL HISTORY: Hypoxia. FINDINGS: An AP, portable, upright chest radiograph is compared to study dated 10/16/2021. Correlation is made with chest CT dated 10/01/[address] dated 10/14/2021. Endotracheal and enteric tube s have been removed. The heart appears mildly enlarged. There is pulmonary vascular congestion. Incre asing perihilar opacities are seen bilaterally. Suspect small pleural effusion. No pneumothorax is se en. The bony thorax is grossly intact. IMPRESSION: 1. Endotracheal and enteric tubes have been removed. 2. Cardiomegaly with pulmonary vascular congestion. 3. Perihilar airspace opacities likely represent pulmonary edema and have significantly increased fro m previous. Correlate clinically for evidence of an infectious/inflammatory pneumonitis. 4. Suspect small pleural effusions. ACT 112: Negative or not required by law. Electronically signed by: Nick Iverson M.D. 10/18/2021 12:38 PM
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
[2021-10-18] MEDS: cefTRIAXone SODIUM 2,000 MG in DEXTROSE 5% 50 ML IV SCH (13:45)
[2021-10-18] MEDS: PHENobarbitaL sodium 65 MG in SYRINGE 0 ML IV SCH ×2 (13:45→21:01)
[2021-10-18] MEDS ORDERED: PHENobarbital sodium 65 MG/ML VIAL IV SCH (14:00)
[2021-10-18] MEDS: PHENobarbital sodium 65 MG/ML VIAL IV PRN (17:16)
[2021-10-19] MEDS: METOPROLOL TARTRATE 1 MG/ML VIAL IV SCH ×4 (05:14→23:32)
[2021-10-19] MEDS: PHENobarbitaL sodium 65 MG in SYRINGE 0 ML IV SCH ×2 (05:14→16:15)
[2021-10-19] MEDS: ACETAMINOPHEN 65 ML IV PRN (05:58)
[2021-10-19 06:08] LABS: Hematocrit (blood only) 29.4 % (40.1-51.0); Hemoglobin 8.8 g/dl (14.0-18.0); Mean Corpuscular Hemoglobin 33.7 pg (25.0-34.0); Mean Corpuscular Hgb Conc 29.9 g/dL (32.0-36.0); Mean Corpuscular Volume 112.6 fL (80.0-100.0); Mean Platelet Volume 12.7 fL (9.4-12.4); Nucleated RBC # (auto) 0.13 K/uL (0-0); Platelet Count 300 K/uL (130-400); RDW Coefficient of Variation 17.5 % (11.5-14.5); RDW Standard Deviation 71.2 fL (36.4-46.3); Red Blood Count 2.61 M/uL (4.63-6.08); White Blood Count 12.88 K/ul (4.8-10.8)
[2021-10-19 06:39] LABS: Alanine Aminotransferase 7 U/L (7-52); Albumin Globulin Ratio 0.8 (0.9-2); Albumin Level 2.9 gm/dl (3.4-5.0); Alkaline Phosphatase 130 U/L (34-104); Anion Gap 13 (3-11); Aspartate Aminotransferase 57 U/L (13-39); BUN Creatinine Ratio 11.5 (10-20); Bilirubin,Total 2.1 mg/dl (0.2-1.0); Blood Urea Nitrogen 6 mg/dl (6-23); Calcium 6.7 mg/dl (8.5-10.1); Carbon Dioxide 26 mmol/L (21-32); Chloride 107 mmol/L (98-107); Creatinine Clr Calc Pharmacy 276.6 ml/min; Est GFR (African American) > 150.0 ml/min; Est GFR (Non-African American) 136.2 ml/min; Globulin 3.7 gm/dl (2.5-4.0); Glucose 102 mg/dl (70-99(Fasting)); Magnesium 2.2 mg/dl (1.7-2.4); Phosphorus 1.8 mg/dl (2.5-4.9); Sodium 146 mmol/L (136-145); Total Protein 6.6 gm/dl (6.0-8.3)
[2021-10-19 06:43] LABS: Basophils # (auto) 0.09 K/uL (0-0.2); Basophils % (auto) 0.7 %; Eosinophils # (auto) 0.02 K/uL (0-0.50); Eosinophils % (auto) 0.2 %; Immature Granulocytes # (auto) 0.34 K/uL (0.00-0.02); Immature Granulocytes % (auto) 2.6 %; Lymphocytes # (auto) 1.57 K/uL (1.2-3.4); Lymphocytes % (auto) 12.2 %; Monocytes # (auto) 1.13 K/uL (0.24-0.82); Monocytes % (auto) 8.8 %; Neutrophils # (auto) 9.73 K/uL (1.4-6.5); Neutrophils % (auto) 75.5 %; Polychromasia 1+
--- NOTE | 2021-10-19 06:55 | Critical Care Progress Note ---
Date of Service October 19, 2021 Assessment & Plan (1) Cellulitis of right leg: (2) Hypomagnesemia: (3) Sepsis: (4) Delirium tremens: (5) Hypokalemia: (6) Alcohol withdrawal: (7) Elevated lactic acid level: (8) Fever: (9) Alcoholic hepatitis: (10) Alcohol use disorder: Plan Impression: 36-year-old male with history of alcohol abuse presents to the ICU with alcohol withdrawal and sepsis With cellulitis to the right lower extremity Neuro: Weaning off Versed for trial of extubation. Encephalopathy -patient with EtOH 252 on admission. UDS negative -History of 2 admissions to the ICU for DTs and 1 episode of alcohol withdrawal seizure on prior admissions. -Continue with CIWA protocol with Ativan -Continue with thiamine, folate acid, Multivitamin -Bilateral hand mitts for trying to pull off oxymask, IV sites. -Now mostly out of the window of alcohol withdrawal, lingering encephalopathy may have more opioid withdrawal component at this point. -Will try to wean off phenobarb, given phenobarb scheduled TID 65mg yesterday, will give 65mg BID scheduled. Has phenobarb 65mg IV Q6h PRN for increased agitation. Opioid abuse disorder -Continue home Suboxone BID. Cardiac: Tachycardia -likely symptom of withdrawal plus sepsis -No history of heart disease -Lopressor increased from 5mg to 10mg q6 IV -Continue to monitor on telemetry Elevated troponin -EKG does not show any changes in the ST or T waves. Sinus tachycardia appreciated. -Likely type II TN from demand ischemia HTN -hold lisinopril for now. Monitor Respiratory: Acute hypoxic respiratory failure 2/2 Aspiration Pneumonitis -Patient had episode of agitation with probable aspiration, worsening respiratory failure non-responsive to bag-valve mask. -Patient was sedated and intubated with good oxygenation. -Patient extubated 10/17, on BiPAP. -Wean off O2 as tolerated, continue to monitor. Current smoker -Smoking approximately 15 cigarettes/day. Continuous monitoring on pulse ox. O2 supplementation to keep oxygen saturation around 92% GI: Transaminitis - AST/ALT as well as alk phos are trending down or plateauing,T bili peaked to 4.5 but trended down to 2.9 -> continue to monitor Fatty liver diseaselikely secondary to alcohol abuse. INR within normal limits. CT abdomen and Pelvis with hepatic steatosis and hepatomegaly Hepatitis panel positive for Hep C reactive, pending HCV RNA test, will need to follow up outpatient for treatment. Can perform HIV testing in hospital. NPO, will start on diet when patient able to tolerate, if not continue normosol at 100ml/hr. RENAL/LYTES - Creatinine within normal limits Hypokalemia/Hypophosphatemia:Replenished 21mmol KPhos. Continue to trend. Hypocalcemia: Replenished 1g Calcium Gluconate. Continue to monitor. HAGMA: Likely sec to lactic acidosis Resolved. - Foleystrict I's and O's ENDO - No history of diabetes or thyroid disease. ICU hyperglycemic protocol HEME - Macrocytic anemia likely from alcohol abuse Folate 11.54, B12 816, reticulocyte 0.11. Receiving Folic acid daily. Hgb stable, continue to monitor H&H ID - SepsisLikely source of impetigo at start compounded with aspiration pneumonitis. Blood and urine cultures negative, wound culture growing MSSA. CT right lower extremity does not show any signs of necrotizing fasciitis, b/l duplex LE no signs of clots. Covid-19 NAAT negative, nasal MRSA negative, CPK 291. Procalcitonin 1.96 on 10/17, will repeat procalcitonin in AM. Source of fevers and tachycardia may be aspiration pneumonitis vs impetigo rash. Tylenol as needed for fever. On Ceftriaxone 2g q24h, D/C'ed Vancomycin given MSSA culture from wound, negative MRSA swab. [place] called and informed of patient's presentation and condition - low suspicion for monkeypox virus. Precautions D/C'ed. Hep C - Patient Hepatitis C positive, PCR positive. HIV 1,2 Ab test ordered. Liver enzymes stabilizing, T. bili trending down. F/u outpatient for further treatment. VTE: Prophylaxis Lovenox GI: Protonix, NPO Lines: Peripheral IV Dispo: ICU. Admission and Anticipated Discharge Date Admission Date: October 14, 2021 Supervising Physician Co-Signing Physician Notes Dr. Brown was resident physician during care of patient. I separately evaluated patient for valentin portions of the history and the exam. I was present during the critical portion of medical decision making, and I discussed the case with the resident. I generally agree with the findings and plan. New diagnosis of hepatitis C will require follow-up with primary care provider as outpatient for possible Harvoni treatment. Will obtain HIV testing while in house. Patient's mental status marginally improved not as impulsive even when compared to yesterday, will give 65 mg phenobarbital IV every 12 hours. IV Tylenol x1. Continued restraint: Bilateral mitts as patient is still hallucinating grabbing at medical equipment not redirectable. Fever of unclear etiology, continue current antibiotic regimen, no oxygen requirement to suspect that we are inadequately treating a anaerobic infection given aspiration events. Recent bilateral venous duplex and repeat blood cultures have remained negative. Will repeat procalcitonin for tomorrow to see if we are downtrending, if uptrending would strongly consider expanding antibiotic coverage at that point I have personally spent 45 minutes of critical care time in the direct management of this patient. This is a life/limb threatening event. This includes time spent evaluating patient, direct bedside care, chart review, placing orders, interpretation of diagnostic studies, discussion with consultants, patient, and/or family members regarding treatment decisions, as well as other required patient management activities. This time is exclusive of all separately billable procedures, and teaching time and separate from and in addition to any other critical care service time. Subjective Patient seen at the bedside this morning still in somewhat of a delirious state. Knows he's in the hospital at times but other times will think he is at work or somewhere else. Review of Systems Constitutional: as per Subjective / HPI Physical Exam Constitutional: WD/WN, vitals as above Respiratory: Mildly course lung sounds with expiratory wheezes bilaterally. Cardiovascular: Rate/Rhythm: + tachycardic Heart Sounds: normal S1 and normal S2 Extremities: + edema (1+) Gastrointestinal (Abdomen): normal bowel sounds, soft, nontender, no hepatosplenomegaly Skin: Dressing over R lower leg covering rash. Erythema has not progressed past line of demarcation drawn previously, rash appears dry. Results & Data Results & Data ([facility]) Vital Signs (Past 12 Hours) Vital Signs Temp Pulse Resp BP Pulse Ox O2 Del Method O2 Flow Rate 10/19/21 06:00 38.4 C H 105 H 34 H 152/103 H 93 BiPAP 10/19/21 05:14 115 H 176/117 H 10/19/21 05:00 38.2 C H 111 H 35 H 176/117 H 92 BiPAP 10/19/21 04:00 38.3 C H 115 H 19 166/101 H 93 BiPAP 10/19/21 03:00 37.8 C H 112 H 27 H 159/109 H 95 BiPAP 10/19/21 03:22 113 H 34 H 94 10/19/21 02:00 38.1 C H 107 H 30 H 163/97 H 96 BiPAP 10/19/21 01:00 37.7 C H 109 H 28 H 159/99 H 92 BiPAP 10/19/21 00:00 38.2 C H 111 H 34 H 169/110 H 92 BiPAP 10/18/21 23:00 38.1 C H 119 H 30 H 112/33 L 96 BiPAP 10/18/21 23:54 117 H 172/122 H 10/18/21 22:07 110 H 31 H 90 10/18/21 22:00 38.1 C H 114 H 26 H 159/109 H 95 BiPAP 10/18/21 21:00 38.2 C H 114 H 30 H 166/105 H 91 Oxymask 6 10/18/21 20:00 38.0 C H 112 H 29 H 139/104 H 93 Oxymask 6 10/18/21 19:00 38.2 C H 116 H 32 H 151/91 H 91 Oxymask 6 10/18/21 20:00 Oxymask 6 FiO2 10/19/21 06:00 40 10/19/21 05:14 10/19/21 05:00 40 10/19/21 04:00 40 10/19/21 03:00 40 10/19/21 03:22 40 10/19/21 02:00 40 10/19/21 01:00 40 10/19/21 00:00 40 10/18/21 23:00 40 10/18/21 23:54 10/18/21 22:07 40 10/18/21 22:00 40 10/18/21 21:00 10/18/21 20:00 10/18/21 19:00 10/18/21 20:00 Resident Activity Tracking Resident Involvement: Resident Care Provided Care Provided: Adult [facility] Medicine
--- NOTE | 2021-10-19 07:30 | XRay Report ---
XR chest 1V portable CLINICAL HISTORY: Follow-up. COMPARISON STUDY: Chest radiograph October 18, 2021. FINDINGS: There is no pneumothorax. Small right pleural effusion is similar to prior exam. Cardiomega ly is again noted. Extensive bilateral perihilar opacities have slightly progressed. There is diffuse interstitial thickening is well. Left basilar opacity has slightly progressed. IMPRESSION: 1. Progression of extensive perihilar airspace opacities and interstitial thickening. The findings fa vor alveolar and interstitial pulmonary edema. Superimposed pneumonia would be difficult to exclude. 2. Small right pleural effusion. 3. Cardiomegaly. ACT 112: Negative or not required by law. Electronically signed by: Rogerio Rouse M.D. 10/19/2021 7:29 AM
[2021-10-19] MEDS ORDERED: ALBUT/IPRATROP 3MG/0.5MG NEB 3 ML VIAL NEB PRN (07:51)
[2021-10-19] MEDS: NORMOSOL-R 1,000 ML IV SCH ×2 (08:42→20:56)
[2021-10-19] MEDS: ENOXAPARIN INJ 40 MG/0.4 ML SYR SQ SCH ×2 (08:44→20:56)
[2021-10-19] MEDS: lisinopril 20 MG TAB PO SCH (08:45)
[2021-10-19] MEDS: THIAMINE HCL 100 MG in SYRINGE 9 ML IV SCH (08:48)
[2021-10-19] MEDS: FOLIC ACID 1 MG in SYRINGE 9.8 ML IV SCH (08:48)
[2021-10-19] MEDS ORDERED: STAT IV STA (09:38)
[2021-10-19] MEDS ORDERED: POTASSIUM PHOS 3 MMOL/1 ML INFUSION IV STA (09:38)
[2021-10-19] MEDS ORDERED: BUPRENORPHINE/NALOXONE 8/2 MG TAB SL SCH (10:00)
[2021-10-19] MEDS ORDERED: CALCIUM GLUCONATE 10% 1,000 MG in DEXTROSE 5% 50 ML IV ONE (10:00)
[2021-10-19] MEDS ORDERED: BUPRENORPHINE/NALOXONE 8/2 MG TAB SL ONE (10:14)
[2021-10-19] MEDS ORDERED: ACETAMINOPHEN 65 ML IV ONE (10:15)
[2021-10-19] MEDS ORDERED: POTASSIUM PHOSPHATE 21 MMOL in DEXTROSE 5% 500 ML IV ONE (10:15)
[2021-10-19] MEDS: PANTOprazole 40 MG in SYRINGE 0 ML IV SCH (10:32)
[2021-10-19] MEDS: AMPICILLIN/SULBACTAM SOD 3,000 MG in 0.9 % SODIUM CHLORIDE 100 ML IV SCH ×3 (11:06→23:33)
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
[2021-10-19] MEDS: PHENobarbital sodium 65 MG/ML VIAL IV PRN (20:55)
[2021-10-19] MEDS: BUPRENORPHINE/NALOXONE 8/2 MG TAB SL SCH (20:56)
[2021-10-20] MEDS: AMPICILLIN/SULBACTAM SOD 3,000 MG in 0.9 % SODIUM CHLORIDE 100 ML IV SCH ×4 (04:09→23:00)
[2021-10-20] MEDS: NORMOSOL-R 1,000 ML IV SCH ×3 (04:09→22:20)
[2021-10-20] MEDS: PHENobarbital sodium 65 MG/ML VIAL IV PRN (04:10)
[2021-10-20] MEDS: PHENobarbitaL sodium 65 MG in SYRINGE 0 ML IV SCH ×2 (04:10→16:30)
[2021-10-20] MEDS: METOPROLOL TARTRATE 1 MG/ML VIAL IV SCH ×3 (05:09→18:02)
[2021-10-20 06:42] LABS: Anion Gap 13 (3-11); BUN Creatinine Ratio 17.4 (10-20); Blood Urea Nitrogen 8 mg/dl (6-23); Calcium 7.1 mg/dl (8.5-10.1); Carbon Dioxide 26 mmol/L (21-32); Chloride 107 mmol/L (98-107); Creatinine Clr Calc Pharmacy 316.1 ml/min; Est GFR (African American) > 150.0 ml/min; Est GFR (Non-African American) 143.3 ml/min; Glucose 90 mg/dl (70-99(Fasting)); Magnesium 2.2 mg/dl (1.7-2.4); Phosphorus 1.8 mg/dl (2.5-4.9); Potassium 4.2 mmol/L (3.5-5.1); Sodium 146 mmol/L (136-145)
--- NOTE | 2021-10-20 07:22 | Critical Care Progress Note ---
Date of Service October 20, 2021 Assessment & Plan (1) Acute metabolic encephalopathy: (2) Cellulitis of right leg: (3) Hepatitis C: (4) Obesity (BMI 30-39.9): (5) Hypokalemia: (6) Alcohol withdrawal: (7) Hypomagnesemia: Plan Impression: 36-year-old male with history of alcohol abuse presents to the ICU with alcohol withdrawal and sepsis With cellulitis to the right lower extremity Neuro: Encephalopathy: Possible Warnicke's encephalopathy versus delirium tremens -patient with EtOH 252 on admission. UDS negative -History of 2 admissions to the ICU for DTs and 1 episode of alcohol withdrawal seizure on prior admissions. -Continue phenobarbitol taper, additional day of 65 mg IV -Aggressive thiamine 500mg IV Q8 hours for 6 doses, then 250 mg daily for 5 days -May have opioid withdrawal component at this point. -Check ammonia level - Consider advanced imaging if HIV (+) return of fevers, or no significant improvement Opioid abuse disorder -Suboxone SL Cardiac: Tachycardia: mild improvement -No history of heart disease -Lopressor increased from 10mg to 15mg q6 IV -Continue to monitor on telemetry Elevated troponin -EKG does not show any changes in the ST or T waves. Sinus tachycardia appreciated. -Likely type II FL from demand ischemia -Continue to monitor HTN -hold lisinopril for now. Secondary to frequent aspiration and no p.o. access Respiratory: Acute hypoxic respiratory failure 2/2 Aspiration Pneumonitis -Patient had episode of agitation with aspiration -Necessitated intubation 8/, extubated 83 -Noninvasive mechanical ventilation as needed -Body habitus suggestive of ANAMARIA -Wean off O2 as tolerated Current smoker -Smoking approximately 15 cigarettes/day. Continuous monitoring on pulse ox. O2 supplementation to keep oxygen saturation around 92% GI: Transaminitis - AST/ALT as well as alk phos are trending down or plateauing,T bili peaked to 4.5 but trended down to 2.9 -> continue to monitor Fatty liver diseaselikely secondary to alcohol abuse. INR within normal limits. CT abdomen and Pelvis with hepatic steatosis and hepatomegaly Hepatitis panel positive for Hep C reactive, - HCV RNA 7300, will need to follow up outpatient for treatment. NPO, will start on diet when patient able to tolerate, if not continue normosol at 100ml/hr. RENAL/LYTES - Creatinine within normal limits Hypokalemia/Hypophosphatemia: 21mmol KPhos Hypocalcemia: 1g Calcium Gluconate HAGMA: Likely sec to lactic acidosis Resolved. - Foleystrict I's and O's ENDO - No history of diabetes or thyroid disease. ICU hyperglycemic protocol - TSH with reflex ordered - Check parathyroid hormone given hypocalcemia HEME - Macrocytic anemia likely from alcohol abuse Folate 11.54, B12 816, reticulocyte 0.11. ID - SepsisLikely source of impetigo at start compounded with aspiration pneumonitis. Blood and urine cultures negative, wound culture growing MSSA. CT right lower extremity does not show any signs of necrotizing fasciitis. Covid-19 NAAT negative, nasal MRSA negative, CPK 291. Procalcitonin downtrending from 1.96 to 0.35 Likely aspiration pneumonitis causing fevers and continued tachycardia. Tylenol as needed for fever. On Ceftriaxone 2g q24h 10/15-10/19 transition to Unasyn for continued fevers on 10/19, plan 10-14 days of oral therapy after fevers resolve - D/C'ed Vancomycin given MSSA culture from wound, negative MRSA swab. [place] called and informed of patient's presentation and condition - low suspicion for monkeypox virus. Precautions D/C'ed. Hep C - Patient Hepatitis C positive, PCR positive. Can work up further with HIV testing. Liver enzymes stabilizing, T. bili trending down. F/u outpatient for further treatment. VTE: Prophylaxis Lovenox GI: Protonix, NPO Lines: Peripheral Dispo: ICU. Admission and Anticipated Discharge Date Admission Date: October 14, 2021 Supervising Physician Co-Signing Physician Notes I have personally spent 45 minutes of critical care time in the direct management of this patient. This is a life/limb threatening event. This includes time spent evaluating patient, direct bedside care, chart review, placing orders, interpretation of diagnostic studies, discussion with consultants, patient, and/or family members regarding treatment decisions, as well as other required patient management activities. This time is exclusive of all separately billable procedures, and teaching time and separate from and in addition to any other critical care service time. Subjective No overnight events still disoriented and appears to be hallucinating. Review of Systems Review of Systems: Unobtainable due to reduced consciousness Physical Exam Physical Exam: General: Alert. Mumbling and rambling Skin: Left lower extremity appears improved less erythema and excoriations appear to be healing Head: Atraumatic Ears, nose, mouth and throat: airway patent Cardiovascular: Normal peripheral perfusion Respiratory: no respiratory distress Gastrointestinal: Non distended, rotund Musculoskeletal: No deformity Results & Data Results & Data ([facility]) Vital Signs (Past 12 Hours) Vital Signs Temp Pulse Resp BP Pulse Ox O2 Del Method O2 Flow Rate 10/20/21 05:09 102 H 214/146 H 10/20/21 02:30 110 H 29 H 93 10/19/21 23:32 106 H 158/117 H 10/19/21 22:21 111 H 38 H 93 10/19/21 20:30 102 H 25 H 94 10/19/21 20:00 38.0 C H 100 H 24 95 10/19/21 20:00 151/108 H 10/19/21 19:30 103 H 29 H 94 10/19/21 20:00 Oxymask 6 FiO2 10/20/21 05:09 10/20/21 02:30 40 10/19/21 23:32 10/19/21 22:21 40 10/19/21 20:30 10/19/21 20:00 10/19/21 20:00 10/19/21 19:30 10/19/21 20:00 Critical Care Results & Data Vital Signs (Past 12 Hours) Vital Signs Temp Pulse Resp BP Pulse Ox O2 Del Method O2 Flow Rate 10/20/21 05:09 102 H 214/146 H 10/20/21 02:30 110 H 29 H 93 10/19/21 23:32 106 H 158/117 H 10/19/21 22:21 111 H 38 H 93 10/19/21 20:30 102 H 25 H 94 10/19/21 20:00 38.0 C H 100 H 24 95 10/19/21 20:00 151/108 H 10/19/21 19:30 103 H 29 H 94 10/19/21 20:00 Oxymask 6 FiO2 10/20/21 05:09 10/20/21 02:30 40 10/19/21 23:32 10/19/21 22:21 40 10/19/21 20:30 10/19/21 20:00 10/19/21 20:00 10/19/21 19:30 10/19/21 20:00 Lab & Micro Results (Past 24 Hours) No Data to Display Na 146 mmol/L (136-145) H 10/20/21 K 4.2 mmol/L (3.5-5.1) 10/20/21 Cl 107 mmol/L (98-107) 10/20/21 CO2 26 mmol/L (21-32) 10/20/21 Anion Gap 13 (3-11) H 10/20/21 BUN 8 mg/dl (6-23) 10/20/21 Creatinine 0.46 mg/dl (0.6-1.4) L 10/20/21 Estimated GFR ( Amer) > 150.0 ml/min 10/20/21 Estimated GFR (Non-Af Amer) 143.3 ml/min 10/20/21 BUN/Creatinine Ratio 17.4 (10-20) 10/20/21 Glu 90 mg/dl (70-99(Fasting)) 10/20/21 Ca 7.1 mg/dl (8.5-10.1) L 10/20/21 Phosphorus Level 1.8 mg/dl (2.5-4.9) L 10/20/21 Mg 2.2 mg/dl (1.7-2.4) 10/20/21 06:12 Calcium Level 7.1 mg/dl (8.5-10.1) L 10/20/21 06:12 Microbiology 10/17/21 13:54 Aerobic Blood Culture - Preliminary Blood No growth in Aerobic bottle after 48 hours. Anaerobic Blood Culture - Preliminary No growth in Anaerobic bottle after 48 hours. 10/15/21 16:05 Gram Stain - Final Leg,Right Aerobic and Anaerobic Culture - Preliminary Staphylococcus aureus 10/17/21 11:02 Aerobic Blood Culture - Preliminary Blood No growth in Aerobic bottle after 48 hours. Anaerobic Blood Culture - Preliminary No growth in Anaerobic bottle after 48 hours. 10/17/21 11:09 Urine Culture - Final Urine,Indwelling Cath No growth - less than 1,000 colonies/mL. 10/14/21 00:00 Aerobic Blood Culture - Final Blood No growth in Aerobic bottle after 5 days. Anaerobic Blood Culture - Final No growth in Anaerobic bottle after 5 days. 10/14/21 00:09 Aerobic Blood Culture - Final Blood No growth in Aerobic bottle after 5 days. Anaerobic Blood Culture - Final No growth in Anaerobic bottle after 5 days. Diagnostic Findings (Past 24 Hours) Chest X-Ray 10/19/21 06:00 XR chest 1V portable CLINICAL HISTORY: Follow-up. COMPARISON STUDY: Chest radiograph October 18, 2021. FINDINGS: There is no pneumothorax. Small right pleural effusion is similar to p rior exam. Cardiomegaly is again noted. Extensive bilateral perihilar opacities have slightly progressed. There is diffuse interstitial thickening is well. Left basilar opacity has slightly progressed. IMPRESSION: 1. Progression of extensive perihilar airspace opacities and interstitial thickening. The findings favor alveolar and interstitial pulmonary edema. Superimposed pneumonia would be difficult to exclude. 2. Small right pleural effusion. 3. Cardiomegaly. ACT 112: Negative or not required by law. Electronically signed by: Rogerio Rouse M.D. 10/19/2021 7:29 AM I & O Totals 24 Hours 10/19/21 10/20/21 10/21/21 06:59 06:59 06:59 Intake Total 1618.667 / 4670.160 9596.000 / 3344.000 Output Total 1275 / 1275 760 / 760 Balance 343.667 / 802.469 5397.000 / 2584.000 Cumulative 10/13/21 23:26 thru 10/20/21 06:00 Intake Total 96624.7141 Output Total 45682 Balance 66344.7141 RT Ventilator Mngmt (Last Documented) Ventilator Ordered Settings Ventilator Support Mode Assist Control 10/17/21 08:00 Respiratory Rate 29 10/20/21 02:30 Ventilator Tidal Volume 450 10/17/21 08:00 Setting Minute Ventilation 12 10/17/21 07:10 Positive End Expiratory 10 10/17/21 08:00 Pressure Fraction of Inspired Oxygen 40 10/20/21 02:30 Machine Comment PEEP DECREASED TO 8 10/17/21 07:10 Ventilator - PT Measurements Respiratory Rate 29 Exhaled Tidal Volume 470 Minute Ventilation 12 Peak Inspiratory Airway 21 Pressure Plateau Pressure 17 Respiratory Cycle Inspiratory: 1:2 Expiratory Ratio Inspiratory Phase Time 0.8 End-Tidal CO2 20 Static Lung Compliance 67.14 Dynamic Lung Compliance 42.73 Normal Static Lung Compliance 48.00 Patient Measurements Comment PT EXTUBATED TO 4L NC, SPO2 97%. TOLERATED PROCEDURE WELL. SUCTIONED PRIOR TO EXTUBATION. Coding Level of Care Code Critical Care 1st 30-74 mins Diagnoses Acute metabolic encephalopathy G93.41 Cellulitis of right leg L03.115 Hepatitis C B19.20 Obesity (BMI 30-39.9) E66.9 Hypokalemia E87.6 Alcohol withdrawal F10.939 Hypomagnesemia E83.42
--- NOTE | 2021-10-20 07:45 | XRay Report ---
XR chest 1V portable HISTORY: intubation COMPARISON: Chest 10/19/2021. FINDINGS: Extensive bilateral airspace opacities persist. Small bilateral pleural effusions and cardi omegaly are again noted. There are low lung volumes. No pneumothorax. No endotracheal tube identified . IMPRESSION: 1. No change in the extensive bilateral airspace opacities. 2. Cardiomegaly and small bilateral pleural effusions also persist. ACT 112: Negative or not required by law. Electronically signed by: Jhonny Meza M.D. 10/20/2021 7:43 AM
[2021-10-20] MEDS ORDERED: POTASSIUM PHOS 3 MMOL/1 ML INFUSION IV STA (07:46)
[2021-10-20] MEDS ORDERED: POTASSIUM PHOSPHATE 21 MMOL in DEXTROSE 5% 500 ML IV ONE (08:00)
[2021-10-20] MEDS: THIAMINE HCL 500 MG in SODIUM CHLORIDE 0.9% 50 ML IV SCH ×2 (08:11→16:30)
[2021-10-20] MEDS: BUPRENORPHINE/NALOXONE 8/2 MG TAB SL SCH ×2 (08:12→21:41)
[2021-10-20] MEDS: FOLIC ACID 1 MG in SYRINGE 9.8 ML IV SCH (08:13)
[2021-10-20] MEDS: ENOXAPARIN INJ 40 MG/0.4 ML SYR SQ SCH ×2 (08:14→21:40)
[2021-10-20 08:24] LABS: Hematocrit (blood only) 31.6 % (40.1-51.0); Hemoglobin 9.4 g/dl (14.0-18.0); White Blood Count 13.43 K/ul (4.8-10.8)
[2021-10-20] MEDS ORDERED: diazePAM 5 MG TABLET PO ONE (08:51)
[2021-10-20 08:59] LABS: Basophils # (auto) 0.13 K/uL (0-0.2); Eosinophils # (auto) 0.04 K/uL (0-0.50); Eosinophils % (auto) 0.3 %; Immature Granulocytes # (auto) 0.34 K/uL (0.00-0.02); Immature Granulocytes % (auto) 2.5 %; Lymphocytes # (auto) 1.82 K/uL (1.2-3.4); Lymphocytes % (auto) 13.6 %; Macrocytosis Present; Mean Corpuscular Hemoglobin 33.2 pg (25.0-34.0); Mean Corpuscular Hgb Conc 29.7 g/dL (32.0-36.0); Mean Corpuscular Volume 111.7 fL (80.0-100.0); Mean Platelet Volume 13.1 fL (9.4-12.4); Monocytes # (auto) 1.12 K/uL (0.24-0.82); Monocytes % (auto) 8.3 %; Neutrophils # (auto) 9.98 K/uL (1.4-6.5); Neutrophils % (auto) 74.3 %; Nucleated RBC # (auto) 0.33 K/uL (0-0); Nucleated RBC % (auto) 2.5 %; Platelet Count 275 K/uL (130-400); Polychromasia 1+; RDW Coefficient of Variation 17.7 % (11.5-14.5); RDW Standard Deviation 70.5 fL (36.4-46.3); Red Blood Count 2.83 M/uL (4.63-6.08)
--- NOTE | 2021-10-20 10:33 | CT Scan Report ---
HEAD CT NONCONTRAST CT DOSE: 601.98 mGy.cm HISTORY: encephalopathy TECHNIQUE: Multiaxial CT images of the head were performed without the use of intravenous contrast. A utomated exposure control was utilized for this study. A dose lowering technique was utilized adheri ng to the principles of ALARA. Comparison: None. Findings: Mild mucosal thickening and small retention cyst within the sphenoid sinuses, unchanged. Th e mastoid air cells are clear. Mild motion artifact. The calvarium and skull base are intact. The vance tricles and sulci are within normal limits. There is no mass, hematoma, midline shift, or acute infar ct. Impression: No acute intracranial abnormality. ACT 112: Negative or not required by law. Electronically signed by: Jhonny Meza M.D. 10/20/2021 10:30 AM
[2021-10-20] MEDS: PANTOprazole 40 MG in SYRINGE 0 ML IV SCH (11:03)
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
[2021-10-21] MEDS: THIAMINE HCL 500 MG in SODIUM CHLORIDE 0.9% 50 ML IV SCH ×4 (00:05→23:42)
[2021-10-21] MEDS: METOPROLOL TARTRATE 1 MG/ML VIAL IV SCH ×5 (04:09→23:43)
[2021-10-21 06:14] LABS: Hematocrit (blood only) 29.7 % (40.1-51.0); Hemoglobin 8.7 g/dl (14.0-18.0); Mean Corpuscular Hemoglobin 32.8 pg (25.0-34.0); Mean Corpuscular Hgb Conc 29.3 g/dL (32.0-36.0); Mean Corpuscular Volume 112.1 fL (80.0-100.0); Mean Platelet Volume 12.9 fL (9.4-12.4); Nucleated RBC # (auto) 0.17 K/uL (0-0); Nucleated RBC % (auto) 1.7 %; Platelet Count 252 K/uL (130-400); RDW Coefficient of Variation 17.7 % (11.5-14.5); RDW Standard Deviation 72.4 fL (36.4-46.3); Red Blood Count 2.65 M/uL (4.63-6.08); White Blood Count 9.85 K/ul (4.8-10.8)
[2021-10-21] MEDS: AMPICILLIN/SULBACTAM SOD 3,000 MG in 0.9 % SODIUM CHLORIDE 100 ML IV SCH ×4 (06:18→22:44)
[2021-10-21 06:32] LABS: Anion Gap 12 (3-11); BUN Creatinine Ratio 16.3 (10-20); Blood Urea Nitrogen 7 mg/dl (6-23); Calcium 7.3 mg/dl (8.5-10.1); Carbon Dioxide 26 mmol/L (21-32); Chloride 110 mmol/L (98-107); Creatinine Clr Calc Pharmacy 343.5 ml/min; Est GFR (African American) > 150.0 ml/min; Est GFR (Non-African American) 147.3 ml/min; Glucose 80 mg/dl (70-99(Fasting)); Sodium 148 mmol/L (136-145)
[2021-10-21 06:37] LABS: Magnesium 2.1 mg/dl (1.7-2.4); Phosphorus 1.4 mg/dl (2.5-4.9)
[2021-10-21] MEDS: NORMOSOL-R 1,000 ML IV SCH ×2 (07:21→22:44)
[2021-10-21] MEDS: FOLIC ACID 1 MG in SYRINGE 9.8 ML IV SCH (08:00)
[2021-10-21] MEDS: ENOXAPARIN INJ 40 MG/0.4 ML SYR SQ SCH ×2 (08:01→20:35)
[2021-10-21] MEDS: BUPRENORPHINE/NALOXONE 8/2 MG TAB SL SCH ×2 (08:44→20:36)
--- NOTE | 2021-10-21 09:02 | XRay Report ---
XR chest 1V portable HISTORY: Shortness of breath. intubation COMPARISON: Chest 10/20/2021. FINDINGS: No pneumothorax. The heart remains enlarged. Trace bilateral pleural effusions have improve d. Bilateral perihilar airspace opacities and interstitial thickening have also slightly improved. IMPRESSION: Mild improvement in the bilateral airspace opacities and trace bilateral pleural effusions. ACT 112: Negative or not required by law. Electronically signed by: Jhonny Meza M.D. 10/21/2021 9:01 AM
--- NOTE | 2021-10-21 11:13 | Critical Care Progress Note ---
Date of Service October 21, 2021 Assessment & Plan (1) Acute metabolic encephalopathy: (2) Cellulitis of right leg: (3) Hepatitis C: (4) Obesity (BMI 30-39.9): (5) Hypokalemia: (6) Alcohol withdrawal: (7) Hypomagnesemia: Plan Impression: 36-year-old male with history of alcohol abuse presents to the ICU with alcohol withdrawal and sepsis With cellulitis to the right lower extremity Neuro: Encephalopathy: Possible Warnicke's encephalopathy versus delirium tremens: improving -patient with EtOH 252 on admission. UDS negative -History of 2 admissions to the ICU for DTs and 1 episode of alcohol withdrawal seizure on prior admissions. -Continue phenobarbitol taper, today last day of scheduled phenobarb: 30 mg IV bid x 2 doses -Aggressive thiamine Completed 500mg IV Q8 hours for 6 doses, now 250 mg daily for 5 days -May have opioid withdrawal component at this point: Suboxone -ammonia level: 33 Opioid abuse disorder -Suboxone SL Cardiac: Tachycardia: mild improvement -No history of heart disease -Lopressor increasing from 15mg to 20 mg q6 IV -Continue to monitor on telemetry HTN -hold lisinopril for now. Secondary to frequent aspiration and no p.o. access - Metoprolol 20 mg IV q 6 hours Respiratory: Acute hypoxic respiratory failure 2/2 Aspiration Pneumonitis: improved -Patient had episode of agitation with aspiration -Necessitated intubation 10/16, extubated 8 -Noninvasive mechanical ventilation as needed -Body habitus suggestive of ANAMARIA -Wean off O2 as tolerated Current smoker -Smoking approximately 15 cigarettes/day. Continuous monitoring on pulse ox. O2 supplementation to keep oxygen saturation around 92% GI: Transaminitis - Fatty liver diseaselikely secondary to alcohol abuse. INR within normal limits. CT abdomen and Pelvis with hepatic steatosis and hepatomegaly Hepatitis panel positive for Hep C reactive, - HCV RNA 7300, will need to follow up outpatient for treatment. NPO: Seen by speech therapy, video swallow study tomorrow RENAL/LYTES - Creatinine within normal limits Hypokalemia/Hypophosphatemia: 30 mmol KPhos Hypocalcemia: 1g Calcium Gluconate -Parathyroid hormone elevated, calcium low and phosphorus also low: Suggestive of secondary hyperparathyroidism -Suspect vitamin D intake deficiency -Vitamin D level to a.m. labs -Likely would need supplementation when able to take pills again HAGMA: Likely sec to lactic acidosis Resolved. - Foleystrict I's and O's ENDO - No history of diabetes or thyroid disease. ICU hyperglycemic protocol - TSH with reflex ordered -Suspect secondary hyperparathyroidism HEME - Macrocytic anemia likely from alcohol abuse Folate 11.54, B12 816, reticulocyte 0.11. ID - SepsisLikely source of impetigo at start compounded with aspiration pneumo nitis: Improving Blood and urine cultures negative, wound culture growing MSSA. CT right lower extremity does not show any signs of necrotizing fasciitis. Covid-19 NAAT negative, nasal MRSA negative, CPK 291. Procalcitonin downtrending from 1.96 to 0.35 Likely aspiration pneumonitis causing fevers and continued tachycardia. - Tylenol as needed for fever. On Ceftriaxone 2g q24h 10/15-10/19 transition to Unasyn for continued fevers on 10/19, plan 10-14 days of oral therapy after fevers resolve - D/C'ed Vancomycin given MSSA culture from wound, negative MRSA swab. - WBC normalized [facility] called and informed of patient's presentation and condition - low suspicion for monkeypox virus. Precautions D/C'ed. Hep C - Patient Hepatitis C positive, PCR positive. Can work up further with HIV testing. Liver enzymes stabilizing, T. bili trending down. F/u outpatient for further treatment. VTE: Prophylaxis Lovenox GI: Protonix, NPO Lines: Peripheral Dispo: ICU. Admission and Anticipated Discharge Date Admission Date: October 14, 2021 Subjective More lucid today. Mildly conversational. Physical Exam Physical Exam: General: Alert. Oriented to self and location Skin: Left lower extremity appears improved Head: Atraumatic Ears, nose, mouth and throat: airway patent Cardiovascular: Normal peripheral perfusion Respiratory: no respiratory distress Gastrointestinal: Non distended, rotund Musculoskeletal: No deformity Results & Data Results & Data ([facility]) Vital Signs (Past 12 Hours) Vital Signs Pulse Pulse Resp BP Pulse Ox O2 Del Method O2 Flow Rate 10/21/21 09:52 86 18 93 Oxymask 6 10/21/21 08:00 93 H 10/21/21 08:00 Oxymask 6 10/21/21 06:17 106 H 165/113 H 10/21/21 03:15 90 15 95 10/21/21 04:00 109 H 16 94 10/21/21 04:00 192/144 H 10/21/21 03:01 102 H 17 94 10/21/21 03:01 199/159 H 10/21/21 03:00 101 H 24 94 10/21/21 02:01 104 H 23 93 10/21/21 02:01 188/138 H 10/21/21 02:00 100 H 22 93 10/21/21 01:02 88 33 H 93 10/21/21 01:02 182/134 H 10/21/21 01:00 104 H 18 94 10/21/21 00:01 86 24 93 10/21/21 00:01 197/132 H 10/21/21 00:00 97 H 17 93 10/21/21 04:09 108 H 197/132 H FiO2 10/21/21 09:52 10/21/21 08:00 10/21/21 08:00 10/21/21 06:17 10/21/21 03:15 40 10/21/21 04:00 10/21/21 04:00 10/21/21 03:01 10/21/21 03:01 10/21/21 03:00 10/21/21 02:01 10/21/21 02:01 10/21/21 02:00 10/21/21 01:02 10/21/21 01:02 10/21/21 01:00 10/21/21 00:01 10/21/21 00:01 10/21/21 00:00 10/21/21 04:09 Critical Care Results & Data Vital Signs (Past 12 Hours) Vital Signs Pulse Pulse Resp BP Pulse Ox O2 Del Method O2 Flow Rate 10/21/21 09:52 86 18 93 Oxymask 6 10/21/21 08:00 93 H 10/21/21 08:00 Oxymask 6 10/21/21 06:17 106 H 165/113 H 10/21/21 03:15 90 15 95 10/21/21 04:00 109 H 16 94 10/21/21 04:00 192/144 H 10/21/21 03:01 102 H 17 94 10/21/21 03:01 199/159 H 10/21/21 03:00 101 H 24 94 10/21/21 02:01 104 H 23 93 10/21/21 02:01 188/138 H 10/21/21 02:00 100 H 22 93 10/21/21 01:02 88 33 H 93 10/21/21 01:02 182/134 H 10/21/21 01:00 104 H 18 94 10/21/21 00:01 86 24 93 10/21/21 00:01 197/132 H 10/21/21 00:00 97 H 17 93 10/21/21 04:09 108 H 197/132 H FiO2 10/21/21 09:52 10/21/21 08:00 10/21/21 08:00 10/21/21 06:17 10/21/21 03:15 40 10/21/21 04:00 10/21/21 04:00 10/21/21 03:01 10/21/21 03:01 10/21/21 03:00 10/21/21 02:01 10/21/21 02:01 10/21/21 02:00 10/21/21 01:02 10/21/21 01:02 10/21/21 01:00 10/21/21 00:01 10/21/21 00:01 10/21/21 00:00 10/21/21 04:09 Lab & Micro Results (Past 24 Hours) RBC 2.65 M/uL (4.63-6.08) L 10/21/21 WBC 9.85 K/ul (4.8-10.8) 10/21/21 Hgb 8.7 g/dl (14.0-18.0) L 10/21/21 Hct 29.7 % (40.1-51.0) L 10/21/21 MCV 112.1 fL (80.0-100.0) H 10/21/21 MCH 32.8 pg (25.0-34.0) 10/21/21 MCHC 29.3 g/dL (32.0-36.0) L 10/21/21 RDW Standard Deviation 72.4 fL (36.4-46.3) H 10/21/21 RDW Coefficient of Variation 17.7 % (11.5-14.5) H 10/21/21 Plt Count 252 K/uL (130-400) 10/21/21 MPV 12.9 fL (9.4-12.4) H 10/21/21 Nucleated Red Blood Cells % (auto) 1.7 % 10/21 Nucleated RBC Absolute Count (auto) 0.17 K/uL (0-0) H 10/05 Na 148 mmol/L (136-145) H 10/21/21 K 4.0 mmol/L (3.5-5.1) 10/21/21 Cl 110 mmol/L (98-107) H 10/21/21 CO2 26 mmol/L (21-32) 10/21/21 Anion Gap 12 (3-11) H 10/21/21 BUN 7 mg/dl (6-23) 10/21/21 Creatinine 0.43 mg/dl (0.6-1.4) L 10/21/21 Estimated GFR ( Amer) > 150.0 ml/min 10/21/21 Estimated GFR (Non-Af Amer) 147.3 ml/min 10/21/21 BUN/Creatinine Ratio 16.3 (10-20) 10/21/21 Glu 80 mg/dl (70-99(Fasting)) 10/21/21 Ca 7.3 mg/dl (8.5-10.1) L 10/21/21 Phosphorus Level 1.4 mg/dl (2.5-4.9) L* 10/21/21 Mg 2.1 mg/dl (1.7-2.4) 10/21/21 05:57 Calcium Level 7.3 mg/dl (8.5-10.1) L 10/21/21 05:57 Microbiology 10/15/21 16:05 Gram Stain - Final Leg,Right Aerobic and Anaerobic Culture - Final Staphylococcus aureus Diagnostic Findings (Past 24 Hours) Chest X-Ray 10/21/21 06:00 XR chest 1V portable HISTORY: Shortness of breath. intubation COMPARISON: Chest 10/20/2021. FINDINGS: No pneumothorax. The heart remains enlarged. Trace bilateral pleural effusions have improved. Bilateral perihilar airspace opacities and interstitial thickening have also slightly improved. IMPRESSION: Mild improvement in the bilateral airspace opacities and trace bilateral pleural effusions. ACT 112: Negative or not required by law. Electronically signed by: Jhonny Meza M.D. 10/21/2021 9:01 AM I & O Totals 24 Hours 10/20/21 10/21/21 10/22/21 06:59 06:59 06:59 Intake Total 3344.000 / 3344.000 2794 / 2794 1000 / 1000 Output Total 760 / 760 1350 / 1350 Balance 2584.000 / 2584.000 1444 / 1444 1000 / 1000 Cumulative 10/13/21 23:26 thru 10/21/21 07:21 Intake Total 80050.7141 Output Total 45798 Balance 27358.7141 RT Ventilator Mngmt (Last Documented) Ventilator Ordered Settings Ventilator Support Mode Assist Control 10/17/21 08:00 Respiratory Rate 18 10/21/21 09:52 Ventilator Tidal Volume 450 10/17/21 08:00 Setting Minute Ventilation 12 10/17/21 07:10 Positive End Expiratory 10 10/17/21 08:00 Pressure Fraction of Inspired Oxygen 40 10/21/21 03:15 Machine Comment PEEP DECREASED TO 8 10/17/21 07:10 Ventilator - PT Measurements Respiratory Rate 18 Exhaled Tidal Volume 470 Minute Ventilation 12 Peak Inspiratory Airway 21 Pressure Plateau Pressure 17 Respiratory Cycle Inspiratory: 1:2 Expiratory Ratio Inspiratory Phase Time 0.8 End-Tidal CO2 20 Static Lung Compliance 67.14 Dynamic Lung Compliance 42.73 Normal Static Lung Compliance 48.00 Patient Measurements Comment PT EXTUBATED TO 4L NC, SPO2 97%. TOLERATED PROCEDURE WELL. SUCTIONED PRIOR TO EXTUBATION. Coding Level of Care Code 23762 Subseq Hosp Care Lvl 3 Diagnoses Acute metabolic encephalopathy G93.41 Cellulitis of right leg L03.115 Hepatitis C B19.20 Obesity (BMI 30-39.9) E66.9 Hypokalemia E87.6 Alcohol withdrawal F10.939 Hypomagnesemia E83.42
[2021-10-21] MEDS ORDERED: POTASSIUM PHOS 3 MMOL/1 ML INFUSION IV STA (11:24)
[2021-10-21] MEDS ORDERED: PHENobarbital sodium 65 MG/ML VIAL IV SCH (11:30)
[2021-10-21] MEDS ORDERED: POTASSIUM PHOSPHATE 30 MMOL in DEXTROSE 5% 500 ML IV ONE (11:30)
[2021-10-21] MEDS: PANTOprazole 40 MG in SYRINGE 0 ML IV SCH (12:09)
[2021-10-21] MEDS: PHENobarbitaL sodium 30 MG in SYRINGE 0 ML IV SCH ×2 (12:23→20:35)
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
[2021-10-21] MEDS: PHENobarbital sodium 65 MG/ML VIAL IV PRN (18:13)
[2021-10-22] MEDS: PHENobarbital sodium 65 MG/ML VIAL IV PRN (04:22)
[2021-10-22] MEDS: AMPICILLIN/SULBACTAM SOD 3,000 MG in 0.9 % SODIUM CHLORIDE 100 ML IV SCH ×3 (05:06→17:27)
[2021-10-22] MEDS: METOPROLOL TARTRATE 1 MG/ML VIAL IV SCH (05:07)
[2021-10-22 06:55] LABS: Basophils % (auto) 0.8 %; Eosinophils # (auto) 0.14 K/uL (0-0.50); Eosinophils % (auto) 1.2 %; Hematocrit (blood only) 30.2 % (40.1-51.0); Hemoglobin 9.3 g/dl (14.0-18.0); Immature Granulocytes # (auto) 0.23 K/uL (0.00-0.02); Immature Granulocytes % (auto) 1.9 %; Lymphocytes % (auto) 13.4 %; Mean Corpuscular Hemoglobin 33.1 pg (25.0-34.0); Mean Corpuscular Hgb Conc 30.8 g/dL (32.0-36.0); Mean Corpuscular Volume 107.5 fL (80.0-100.0); Mean Platelet Volume 13.2 fL (9.4-12.4); Monocytes # (auto) 0.96 K/uL (0.24-0.82); Neutrophils # (auto) 8.95 K/uL (1.4-6.5); Neutrophils % (auto) 74.7 %; Nucleated RBC % (auto) 0.8 %; Platelet Count 245 K/uL (130-400); RDW Coefficient of Variation 17.8 % (11.5-14.5); RDW Standard Deviation 68.7 fL (36.4-46.3); Red Blood Count 2.81 M/uL (4.63-6.08); White Blood Count 11.98 K/ul (4.8-10.8)
[2021-10-22 07:18] LABS: Anion Gap 5 (3-11); BUN Creatinine Ratio 6.3 (10-20); Blood Urea Nitrogen 3 mg/dl (6-23); Calcium 7.6 mg/dl (8.5-10.1); Carbon Dioxide 30 mmol/L (21-32); Chloride 107 mmol/L (98-107); Creatinine Clr Calc Pharmacy 305.3 ml/min; Est GFR (African American) > 150.0 ml/min; Est GFR (Non-African American) 140.8 ml/min; Glucose 107 mg/dl (70-99(Fasting)); Magnesium 1.8 mg/dl (1.7-2.4); Phosphorus 1.9 mg/dl (2.5-4.9); Sodium 142 mmol/L (136-145)
--- NOTE | 2021-10-22 07:29 | Critical Care Progress Note ---
Date of Service October 22, 2021 Assessment & Plan (1) Cellulitis of right leg: (2) Hypomagnesemia: (3) Sepsis: (4) Delirium tremens: (5) Hypokalemia: (6) Alcohol withdrawal: (7) Elevated lactic acid level: (8) Fever: (9) Alcoholic hepatitis: (10) Alcohol use disorder: Plan Impression: 36-year-old male with history of alcohol abuse presents to the ICU with alcohol withdrawal and sepsis with impetigo to the right lower extremity Neuro: Encephalopathy: Possible Warnicke's encephalopathy versus delirium tremens: improving -patient with EtOH 252 on admission. UDS negative -History of 2 admissions to the ICU for DTs and 1 episode of alcohol withdrawal seizure on prior admissions. -Continue phenobarbitol taper, phenobarbitol BID 30mg IV until tomorrow morning. -Started Ativan 2mg q6h PO. -Received thiamine 500mg x6 doses, now 250 mg daily for 5 days -May have had contribution to mental state from sepsis, alcohol withdrawal, opioid withdrawal. Opioid abuse disorder -Continue home Suboxone SL BID. Cardiac: Tachycardia: mild improvement -No history of heart disease. Possibly due to infectious source vs withdrawal. -Switched from Metoprolol to Clonidine patch 0.1mg/24h. -Continue to monitor on telemetry HTN -hold lisinopril for now. Secondary to frequent aspiration and no p.o. access - Metoprolol D/C'ed, starting Clonidine patch 0.1mg/24h. Respiratory: Acute hypoxic respiratory failure 2/2 Aspiration Pneumonitis: improved -Patient had episode of agitation with aspiration -Necessitated intubation 10/16, extubated 10/17 -Noninvasive mechanical ventilation as needed -Body habitus suggestive of ANAMARIA -Wean off O2 as tolerated Current smoker -Smoking approximately 15 cigarettes/day. Continuous monitoring on pulse ox. O2 supplementation to keep oxygen saturation around 92% GI: Transaminitis - Fatty liver diseaselikely secondary to alcohol abuse. INR within normal limits. CT abdomen and Pelvis with hepatic steatosis and hepatomegaly Hepatitis panel positive for Hep C reactive, - HCV RNA 7300, will need to follow up outpatient for treatment. NPO: Seen by speech therapy, video swallow study today - if passes can trial on clear liquid diet. RENAL/LYTES - Creatinine within normal limits, continue to monitor. Hypokalemia/Hypophosphatemia: Replete as needed. Hypocalcemia: -Parathyroid hormone elevated, calcium low and phosphorus also low: Suggestive of secondary hyperparathyroidism -Vitamin D level <7.0, low, likely contributing to hypocalcemia. HAGMA: Likely sec to lactic acidosis Resolved. - Strict I's and O's, trial Griffin out today. ENDO - No history of diabetes or thyroid disease. ICU hyperglycemic protocol -TSH 2.89 Hyperparathyroidism: -PTH 304.9, vitamin D <7.0, calcium and phosphate low througout stay. -Most likely secondary hyperparathyroidism due to vitamin D deficiency. -Can supplement Vitamin D orally when patient able to eat. HEME - Macrocytic anemia likely from alcohol abuse Folate 11.54, B12 816, reticulocyte 0.11. Hemoglobin stable, continue to trend. ID - SepsisLikely source of impetigo at start compounded with aspiration pneumonitis: Improving Blood and urine cultures negative, wound culture growing MSSA. CT right lower extremity does not show any signs of necrotizing fasciitis. Covid-19 NAAT negative, nasal MRSA negative, CPK 291. Procalcitonin downtrending from 1.96 to 0.35 Likely aspiration pneumonitis causing fevers and continued tachycardia. - Tylenol as needed for fever. On Ceftriaxone 2g q24h 10/15-10/19 transition to Unasyn for continued fevers on 10/19, plan 10-14 days of oral therapy after fevers resolve - D/C'ed Vancomycin given MSSA culture from wound, negative MRSA swab. [facility] called and informed of patient's presentation and condition - low suspicion for monkeypox virus. Precautions D/C'ed. Hep C - Patient Hepatitis C positive, PCR positive. Can work up further with HIV testing. Liver enzymes stabilizing, T. bili trending down. F/u outpatient for further treatment. VTE: Prophylaxis Lovenox F/E/N/GI: Protonix, NPO Lines: Peripheral Dispo: ICU, stable for downgrade. PT/OT ordered. Admission and Anticipated Discharge Date Admission Date: October 14, 2021 Supervising Physician Co-Signing Physician Notes Patient seen and examined. EMR reviewed. Discussed with overnight critical care FRANKLIN as well as off going cottage parent and bedside critical care nurse and on multidisciplinary rounds. The patient's delirium is better today. He is awake alert. He is pending a swallow evaluation. We will discontinue Griffin catheter. Initiate PT and OT. He remains intermittently febrile but other infectious markers are showing improvement. Continue Unasyn for now but may be able to transition to Augmentin. If persistent fevers, additional work-up may be necessary. We will discontinue phenobarb. Transition to clonidine TTS and clonidine p.o. if the patient is able to take oral medications after swallow evaluation. Judicious Ativan. May need Librium. Okay to transfer out of the intensive care unit. Hospitalist to assume primary care. Critical care services will sign off. Subjective Patient seen at the bedside this morning saying he feels 'crappy still' however is not in any acute distress. He denies any shortness of breath, chest pain, fevers, chills. He would like to get something to drink and eat and says that he has to get out of the hospital soon to find a job. Review of Systems Constitutional: as per Subjective / HPI Physical Exam Constitutional: WD/WN, vitals as above Eyes: PERRL, conjunctivae normal, anicteric sclerae Respiratory: normal respiratory effort, lungs clear to auscultation Cardiovascular: RRR, no murmur, no edema Gastrointestinal (Abdomen): normal bowel sounds, soft, nontender, no hepatosplenomegaly Skin: Dressing over R lower leg covering rash. Erythema has not progressed past line of demarcation drawn previously, rash appears dry. Results & Data Results & Data ([facility]) Vital Signs (Past 12 Hours) Vital Signs Temp Pulse Resp BP Pulse Ox O2 Del Method O2 Flow Rate 10/22/21 06:00 38.7 C H 96 H 17 90 Nasal Cannula 6 10/22/21 06:00 183/99 H 10/22/21 05:01 38.8 C H 96 H 18 89 L 10/22/21 05:01 175/95 H 10/22/21 05:00 38.8 C H 105 H 18 90 Nasal Cannula 6 10/22/21 04:34 175/114 H 10/22/21 04:34 38.9 C H 93 H 12 90 10/22/21 04:00 39.0 C H 98 H 91 10/22/21 03:00 39.0 C H 101 H 16 93 10/22/21 05:07 105 H 175/95 H 10/22/21 03:00 97 H 23 92 10/22/21 02:00 38.9 C H 88 19 93 10/22/21 02:00 187/117 H 10/22/21 01:02 38.5 C H 91 H 17 94 10/22/21 01:02 157/92 H 10/22/21 01:00 38.5 C H 84 19 95 10/22/21 00:00 38.3 C H 83 15 97 10/22/21 00:00 157/103 H 10/21/21 23:01 38.3 C H 90 19 100 BiPAP 10/21/21 23:01 169/109 H 10/21/21 23:00 38.3 C H 94 H 20 100 10/22/21 00:00 93 H 10/21/21 22:45 99 H 16 99 10/21/21 23:43 98 H 169/109 H 10/21/21 22:00 38.2 C H 93 H 17 91 10/21/21 22:00 172/106 H 10/21/21 21:00 38.1 C H 89 21 92 Nasal Cannula 6 10/21/21 21:00 146/92 H 10/21/21 20:00 Nasal Cannula 6 10/21/21 20:00 38.2 C H 87 16 92 10/21/21 20:00 144/97 H FiO2 10/22/21 06:00 10/22/21 06:00 10/22/21 05:01 10/22/21 05:01 10/22/21 05:00 10/22/21 04:34 10/22/21 04:34 10/22/21 04:00 10/22/21 03:00 10/22/21 05:07 10/22/21 03:00 40 10/22/21 02:00 10/22/21 02:00 10/22/21 01:02 10/22/21 01:02 10/22/21 01:00 10/22/21 00:00 10/22/21 00:00 10/21/21 23:01 40 10/21/21 23:01 10/21/21 23:00 10/22/21 00:00 10/21/21 22:45 40 10/21/21 23:43 10/21/21 22:00 10/21/21 22:00 10/21/21 21:00 10/21/21 21:00 10/21/21 20:00 10/21/21 20:00 10/21/21 20:00 Resident Activity Tracking Resident Involvement: Resident Care Provided Care Provided: Adult Hospital Medicine
[2021-10-22] MEDS: FOLIC ACID 1 MG in SYRINGE 9.8 ML IV SCH (08:18)
[2021-10-22] MEDS: ENOXAPARIN INJ 40 MG/0.4 ML SYR SQ SCH (08:18)
[2021-10-22] MEDS: CHOLECALCIFEROL 5,000 UNITS 125 MCG TAB PO SCH (08:34)
[2021-10-22] MEDS: BUPRENORPHINE/NALOXONE 8/2 MG TAB SL SCH ×2 (08:36→21:04)
[2021-10-22] MEDS: THIAMINE HCL 250 MG in SODIUM CHLORIDE 0.9% 50 ML IV SCH (08:36)
[2021-10-22] MEDS: NORMOSOL-R 1,000 ML IV SCH ×2 (08:37→19:57)
[2021-10-22] MEDS: PHENobarbitaL sodium 30 MG in SYRINGE 0 ML IV SCH (09:10)
[2021-10-22] MEDS ORDERED: cloNIDine HCL 0.1 MG/24 HR TRANSDERM SYS TD SCH (09:45)
[2021-10-22] MEDS: PANTOprazole 40 MG in SYRINGE 0 ML IV SCH (12:00)
[2021-10-22] MEDS: LORazepam 1 MG TAB PO SCH ×2 (12:01→18:45)
--- NOTE | 2021-10-22 12:11 | Billing Data ---
Date of Service October 22, 2021 Coding Level of Care Code 02657 Subseq Hosp Care Lvl 3
--- NOTE | 2021-10-22 12:19 | Fluoroscopy Report ---
MODIFIED BARIUM SWALLOW CLINICAL HISTORY: assess for aspiration COMPARISON STUDY: None. FLUOROSCOPY TIME: 1.7 minutes. TECHNIQUE: A modified barium swallow was performed in conjunction with Speech Pathology. The patient ingested varying consistencies of barium containing material. Video fluoroscopy was performed. FINDINGS: Minimal penetration was noted with thin liquids and mildly thick liquids. However, no aspir ation was identified. There was no aspiration with thin liquids, mildly thick liquids, moderately thi ck liquids, pudding or crackers with placement. Epiglottic inversion was normal. Laryngeal elevation was normal. IMPRESSION: 1. No tracheal aspiration. Minimal penetration with thin liquids and mildly thick liquids. 2. Full recommendations by Speech pathology to follow. ACT 112: Negative or not required by law. Electronically signed by: Rogerio Rouse M.D. 10/22/2021 12:18 PM
[2021-10-22] MEDS ORDERED: STAT IV STA (13:07)
[2021-10-22] MEDS ORDERED: CALCIUM GLUCONATE 10% 1,000 MG in DEXTROSE 5% 50 ML IV ONE (13:07)
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
[2021-10-22] MEDS: CHECK CLONIDINE PATCH PLACEMENT SCH (15:25)
[2021-10-23] MEDS: LORazepam 1 MG TAB PO SCH ×5 (00:13→23:23)
[2021-10-23] MEDS: CHECK CLONIDINE PATCH PLACEMENT SCH ×4 (00:15→23:23)
[2021-10-23] MEDS: AMPICILLIN/SULBACTAM SOD 3,000 MG in 0.9 % SODIUM CHLORIDE 100 ML IV SCH ×5 (00:16→22:16)
[2021-10-23] MEDS: ENOXAPARIN INJ 40 MG/0.4 ML SYR SQ SCH ×3 (01:52→20:43)
[2021-10-23] MEDS: PHENobarbitaL sodium 30 MG in SYRINGE 0 ML IV SCH (04:45)
[2021-10-23 06:16] LABS: Creatinine Clr Calc Pharmacy 244.5 ml/min; Est GFR (African American) 148.9 ml/min; Est GFR (Non-African American) 128.4 ml/min
[2021-10-23 07:11] LABS: Hematocrit (blood only) 30.3 % (40.1-51.0); Hemoglobin 9.3 g/dl (14.0-18.0); Mean Corpuscular Hemoglobin 33.1 pg (25.0-34.0); Mean Corpuscular Hgb Conc 30.7 g/dL (32.0-36.0); Mean Corpuscular Volume 107.8 fL (80.0-100.0); Mean Platelet Volume 13.3 fL (9.4-12.4); Nucleated RBC # (auto) 0.05 K/uL (0-0); Nucleated RBC % (auto) 0.4 %; Platelet Count 240 K/uL (130-400); RDW Coefficient of Variation 17.2 % (11.5-14.5); RDW Standard Deviation 69.2 fL (36.4-46.3); Red Blood Count 2.81 M/uL (4.63-6.08); White Blood Count 11.61 K/ul (4.8-10.8)
[2021-10-23] MEDS: ACETAMINOPHEN 325 MG TAB PO PRN ×2 (08:41→16:51)
[2021-10-23] MEDS: BUPRENORPHINE/NALOXONE 8/2 MG TAB SL SCH ×2 (08:41→20:43)
[2021-10-23] MEDS: CHOLECALCIFEROL 5,000 UNITS 125 MCG TAB PO SCH (08:46)
[2021-10-23] MEDS: FOLIC ACID 1 MG in SYRINGE 9.8 ML IV SCH (08:48)
[2021-10-23] MEDS: THIAMINE HCL 250 MG in SODIUM CHLORIDE 0.9% 50 ML IV SCH (08:50)
[2021-10-23] MEDS: PANTOprazole 40 MG in SYRINGE 0 ML IV SCH (11:41)
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
[2021-10-23 17:50] LABS: iSTAT Allen Test Pass; iSTAT Art Bld Gas pCO2 Correct 60 mmHg (35-46); iSTAT Art Bld Gas pH Corrected 7.347 (7.35-7.45); iSTAT Arterial Blood Gas HCO3 32 meg/L (19-24); iSTAT Arterial Blood Gas pCO2 56 mmHg (35-46); iSTAT Arterial Blood Gas pH 7.37 (7.35-7.45); iSTAT Arterial Blood Gas pO2 69 mmHg (80-95); iSTAT Arterial Blood Gas pO2 C 76; iSTAT Carbon Dioxide 34 mmol/L (24-31); iSTAT FiO2 40 %; iSTAT Hematocrit 27 % (42-52); iSTAT Hemoglobin 9.2 g/dl (14.0-18.0); iSTAT Potassium 3.7 mmol/L (3.3-5.0); iSTAT Site L Radial; iSTAT Sodium 141 mmol/L (135-144)
[2021-10-24] MEDS: LORazepam 1 MG TAB PO SCH ×4 (05:04→23:10)
[2021-10-24] MEDS: AMPICILLIN/SULBACTAM SOD 3,000 MG in 0.9 % SODIUM CHLORIDE 100 ML IV SCH ×5 (05:04→23:10)
[2021-10-24 05:41] LABS: Appearance Urine Clear (Clear); Bilirubin Urine Negative (Negative); Blood Urine Negative (Negative); Color Urine Yellow; Glucose Urine UA Negative (Negative); Ketones Urine Negative (Negative); Leukocyte Esterase Urine Negative (Negative); Nitrite Urine Negative (Negative); Protein Urine Negative (Negative); Specific Gravity Urine 1.006 (1.000-1.030); Urobilinogen Urine Negative (Negative); pH Urine 8.5 (4.5-7.5)
[2021-10-24 05:58] LABS: Basophils # (auto) 0.12 K/uL (0-0.2); Eosinophils # (auto) 0.22 K/uL (0-0.50); Eosinophils % (auto) 1.9 %; Hemoglobin 9.1 g/dl (14.0-18.0); Immature Granulocytes # (auto) 0.17 K/uL (0.00-0.02); Immature Granulocytes % (auto) 1.5 %; Lymphocytes # (auto) 1.91 K/uL (1.2-3.4); Lymphocytes % (auto) 16.6 %; Mean Corpuscular Hemoglobin 32.6 pg (25.0-34.0); Mean Corpuscular Hgb Conc 30.3 g/dL (32.0-36.0); Mean Corpuscular Volume 107.5 fL (80.0-100.0); Mean Platelet Volume 13.3 fL (9.4-12.4); Monocytes # (auto) 0.97 K/uL (0.24-0.82); Monocytes % (auto) 8.4 %; Neutrophils # (auto) 8.15 K/uL (1.4-6.5); Neutrophils % (auto) 70.6 %; Nucleated RBC # (auto) 0.03 K/uL (0-0); Nucleated RBC % (auto) 0.3 %; Platelet Count 228 K/uL (130-400); RDW Coefficient of Variation 16.8 % (11.5-14.5); Red Blood Count 2.79 M/uL (4.63-6.08); White Blood Count 11.54 K/ul (4.8-10.8)
[2021-10-24 06:14] LABS: Anion Gap 5 (3-11); BUN Creatinine Ratio 7.8 (10-20); Blood Urea Nitrogen 4 mg/dl (6-23); Calcium 8.3 mg/dl (8.5-10.1); Carbon Dioxide 30 mmol/L (21-32); Chloride 105 mmol/L (98-107); Creatinine Clr Calc Pharmacy 283.3 ml/min; Est GFR (African American) > 150.0 ml/min; Est GFR (Non-African American) 137.3 ml/min; Glucose 91 mg/dl (70-99(Fasting)); Potassium 4.3 mmol/L (3.5-5.1); Sodium 140 mmol/L (136-145)
[2021-10-24] MEDS: THIAMINE HCL 250 MG in SODIUM CHLORIDE 0.9% 50 ML IV SCH (09:55)
[2021-10-24] MEDS: BUPRENORPHINE/NALOXONE 8/2 MG TAB SL SCH ×2 (09:55→20:39)
[2021-10-24] MEDS: FOLIC ACID 1 MG in SYRINGE 9.8 ML IV SCH (09:56)
[2021-10-24] MEDS: ENOXAPARIN INJ 40 MG/0.4 ML SYR SQ SCH ×2 (09:57→20:39)
[2021-10-24] MEDS: CHOLECALCIFEROL 5,000 UNITS 125 MCG TAB PO SCH (09:57)
[2021-10-24] MEDS: CHECK CLONIDINE PATCH PLACEMENT SCH ×3 (11:35→23:10)
[2021-10-24] MEDS: PANTOprazole 40 MG in SYRINGE 0 ML IV SCH (11:42)
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
[2021-10-25] MEDS: AMPICILLIN/SULBACTAM SOD 3,000 MG in 0.9 % SODIUM CHLORIDE 100 ML IV SCH ×4 (06:18→23:48)
[2021-10-25] MEDS: LORazepam 1 MG TAB PO SCH ×4 (06:18→23:47)
[2021-10-25] MEDS: ENOXAPARIN INJ 40 MG/0.4 ML SYR SQ SCH ×2 (07:14→20:21)
[2021-10-25] MEDS: BUPRENORPHINE/NALOXONE 8/2 MG TAB SL SCH ×2 (07:14→20:21)
[2021-10-25] MEDS: THIAMINE HCL 250 MG in SODIUM CHLORIDE 0.9% 50 ML IV SCH (07:15)
[2021-10-25] MEDS: FOLIC ACID 1 MG in SYRINGE 9.8 ML IV SCH (07:15)
[2021-10-25] MEDS: CHOLECALCIFEROL 5,000 UNITS 125 MCG TAB PO SCH (07:45)
[2021-10-25] MEDS: CHECK CLONIDINE PATCH PLACEMENT SCH ×3 (07:45→23:48)
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
[2021-10-25] MEDS: PANTOprazole 40 MG in SYRINGE 0 ML IV SCH (12:06)
--- NOTE | 2021-10-25 12:27 | XRay Report ---
XR chest 1V portable CLINICAL HISTORY: Persistent fever, hypoxia. COMPARISON STUDY: 10/21/2021 TECHNIQUE: 1 view of the chest FINDINGS: Single frontal view of the chest demonstrates heart size to again be enlarged. Compared to the previo us examination, extensive interstitial and bilateral alveolar opacities are again seen which are not significantly changed from the previous examination. Given the patient's history, the findings are rowley spicious for possible underlying viral type pneumonitis and Covid 19 pneumonia. No confluent alveolar opacities or air bronchograms are seen. There is haziness at both lung bases ag ain suspicious for bilateral pleural effusions. There is no evidence for vascular congestion. There i s no acute osseous pathology. IMPRESSION: 1. Compared to the previous study, extensive interstitial and alveolar opacities are again seen bilat erally with findings suspicious for small bilateral pleural effusions as well. The presence of a coty l type pneumonitis and Covid 19 pneumonia should be excluded. ACT 112: Negative or not required by law. Electronically signed by: Narinder Ramirez M.D. 10/25/2021 12:25 PM
[2021-10-25 13:00] LABS: Hematocrit (blood only) 32.7 % (40.1-51.0); Hemoglobin 9.8 g/dl (14.0-18.0); Mean Corpuscular Hemoglobin 32.7 pg (25.0-34.0); Mean Platelet Volume 12.7 fL (9.4-12.4); Platelet Count 220 K/uL (130-400); RDW Coefficient of Variation 16.2 % (11.5-14.5); RDW Standard Deviation 65.1 fL (36.4-46.3); White Blood Count 10.07 K/ul (4.8-10.8)
[2021-10-25 13:05] LABS: Anion Gap 7 (3-11); BUN Creatinine Ratio 8.7 (10-20); Blood Urea Nitrogen 4 mg/dl (6-23); Calcium 8.8 mg/dl (8.5-10.1); Carbon Dioxide 29 mmol/L (21-32); Chloride 103 mmol/L (98-107); Creatinine Clr Calc Pharmacy 297.3 ml/min; Est GFR (African American) > 150.0 ml/min; Est GFR (Non-African American) 143.3 ml/min; Glucose 108 mg/dl (70-99(Fasting)); Magnesium 1.6 mg/dl (1.7-2.4); Phosphorus 2.8 mg/dl (2.5-4.9); Sodium 139 mmol/L (136-145)
[2021-10-25 13:21] LABS: Basophils # (auto) 0.11 K/uL (0-0.2); Basophils % (auto) 1.1 %; Eosinophils # (auto) 0.21 K/uL (0-0.50); Eosinophils % (auto) 2.1 %; Immature Granulocytes # (auto) 0.09 K/uL (0.00-0.02); Immature Granulocytes % (auto) 0.9 %; Lymphocytes # (auto) 1.96 K/uL (1.2-3.4); Lymphocytes % (auto) 19.5 %; Monocytes # (auto) 0.92 K/uL (0.24-0.82); Monocytes % (auto) 9.1 %; Neutrophils # (auto) 6.78 K/uL (1.4-6.5); Neutrophils % (auto) 67.3 %
[2021-10-25] MEDS: lisinopril 10 MG TAB PO SCH (13:21)
[2021-10-25] MEDS: MAGNESIUM SULFATE / D5W 1 GM/100 ML BAG IV SCH ×2 (15:22→16:27)
[2021-10-25] MEDS: ACETAMINOPHEN 325 MG TAB PO PRN (15:33)
[2021-10-26] MEDS ORDERED: LORazepam 1 MG in SYRINGE 0.5 ML IV STA (03:06)
[2021-10-26] MEDS: LORazepam 1 MG TAB PO SCH (05:24)
[2021-10-26] MEDS: AMPICILLIN/SULBACTAM SOD 3,000 MG in 0.9 % SODIUM CHLORIDE 100 ML IV SCH (05:24)
[2021-10-26 07:37] LABS: Hematocrit (blood only) 33.3 % (40.1-51.0); Hemoglobin 10.2 g/dl (14.0-18.0); Mean Corpuscular Hemoglobin 32.7 pg (25.0-34.0); Mean Corpuscular Hgb Conc 30.6 g/dL (32.0-36.0); Mean Corpuscular Volume 106.7 fL (80.0-100.0); RDW Coefficient of Variation 15.7 % (11.5-14.5); Red Blood Count 3.12 M/uL (4.63-6.08); White Blood Count 11.87 K/ul (4.8-10.8)
[2021-10-26 07:42] LABS: Mean Platelet Volume 13.7 fL (9.4-12.4); Platelet Count 241 K/uL (130-400)
[2021-10-26 07:44] LABS: Basophils # (auto) 0.15 K/uL (0-0.2); Basophils % (auto) 1.3 %; Eosinophils # (auto) 0.27 K/uL (0-0.50); Eosinophils % (auto) 2.3 %; Immature Granulocytes # (auto) 0.11 K/uL (0.00-0.02); Immature Granulocytes % (auto) 0.9 %; Lymphocytes # (auto) 1.63 K/uL (1.2-3.4); Lymphocytes % (auto) 13.7 %; Monocytes # (auto) 1.14 K/uL (0.24-0.82); Monocytes % (auto) 9.6 %; Neutrophils # (auto) 8.57 K/uL (1.4-6.5); Neutrophils % (auto) 72.2 %
[2021-10-26] MEDS: CHECK CLONIDINE PATCH PLACEMENT SCH ×2 (08:07→15:38)
[2021-10-26] MEDS: CHOLECALCIFEROL 5,000 UNITS 125 MCG TAB PO SCH (08:09)
[2021-10-26] MEDS: ENOXAPARIN INJ 40 MG/0.4 ML SYR SQ SCH (08:09)
[2021-10-26] MEDS: BUPRENORPHINE/NALOXONE 8/2 MG TAB SL SCH (08:09)
[2021-10-26] MEDS: THIAMINE HCL 250 MG in SODIUM CHLORIDE 0.9% 50 ML IV SCH (08:10)
[2021-10-26] MEDS: lisinopril 10 MG TAB PO SCH (08:10)
[2021-10-26] MEDS: FOLIC ACID 1 MG in SYRINGE 9.8 ML IV SCH (08:11)
[2021-10-26 08:15] LABS: Anion Gap 6 (3-11); BUN Creatinine Ratio 8.5 (10-20); Blood Urea Nitrogen 4 mg/dl (6-23); Calcium 8.7 mg/dl (8.5-10.1); Carbon Dioxide 28 mmol/L (21-32); Chloride 102 mmol/L (98-107); Est GFR (African American) > 150.0 ml/min; Glucose 85 mg/dl (70-99(Fasting)); Sodium 136 mmol/L (136-145)
[2021-10-26] MEDS ORDERED: GABAPENTIN 600 MG TAB PO ONE (10:15)
[2021-10-26] MEDS ORDERED: GABAPENTIN 1200MG ALCOHOL WITHDRAWAL LOAD PO SCH (10:30)
[2021-10-26] MEDS: LORazepam 1 MG in SYRINGE 0.5 ML IV PRN ×2 (10:57→23:42)
[2021-10-26] MEDS: PANTOprazole 40 MG in SYRINGE 0 ML IV SCH (12:38)
[2021-10-26] MEDS: chlordiazePOXIDE HCl 25 MG CAP PO SCH (15:27)
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
[2021-10-26] MEDS: GABAPENTIN 600 MG TAB PO SCH (18:16)
[2021-10-27] MEDS ORDERED: cloNIDine HCL 0.1 MG TAB PO ONE (00:17)
[2021-10-27] MEDS: BUPRENORPHINE/NALOXONE 8/2 MG TAB SL SCH ×3 (00:46→21:14)
[2021-10-27] MEDS: GABAPENTIN 600 MG TAB PO SCH ×4 (00:47→21:13)
[2021-10-27] MEDS: CHECK CLONIDINE PATCH PLACEMENT SCH ×3 (00:47→15:49)
[2021-10-27] MEDS: chlordiazePOXIDE HCl 25 MG CAP PO SCH ×3 (00:47→13:56)
[2021-10-27] MEDS: ENOXAPARIN INJ 40 MG/0.4 ML SYR SQ SCH ×3 (00:47→21:13)
[2021-10-27] MEDS: lisinopril 10 MG TAB PO SCH (08:12)
[2021-10-27] MEDS: CHOLECALCIFEROL 5,000 UNITS 125 MCG TAB PO SCH (08:12)
--- NOTE | 2021-10-27 10:34 | XRay Report ---
XR chest 1V portable CLINICAL HISTORY: Hypoxia TECHNIQUE: Single frontal radiograph of the chest was obtained. Comparison: Comparison is made to chest radiograph 10/25/2021 FINDINGS: No lines and tubes are seen. Cardiomegaly is noted. Interval improvement in multifocal airspace opaci ties. No evidence of pleural effusion or pneumothorax. IMPRESSION: Interval improvement in multifocal airspace opacities which may represent improving pneumonia. ACT 112: Negative or not required by law. Electronically signed by: Giorgi Carlson M.D. 10/27/2021 10:32 AM
[2021-10-27] MEDS: PANTOprazole 40 MG in SYRINGE 0 ML IV SCH (12:09)
[2021-10-27] MEDS: FOLIC ACID 1 MG in SYRINGE 9.8 ML IV SCH (12:09)
[2021-10-27] MEDS: LORazepam 1 MG in SYRINGE 0.5 ML IV PRN (12:09)
[2021-10-27] MEDS: ACETAMINOPHEN 325 MG TAB PO PRN (14:57)
[2021-10-27] MEDS ORDERED: LORazepam 1 MG in SYRINGE 0.5 ML IV PRN (16:11)
[2021-10-27] MEDS ORDERED: lisinopril 10 MG TAB PO STA (16:11)
[2021-10-27 16:42] LABS: Hematocrit (blood only) 30.3 % (40.1-51.0); Hemoglobin 9.2 g/dl (14.0-18.0); Mean Corpuscular Hemoglobin 32.7 pg (25.0-34.0); Mean Corpuscular Hgb Conc 30.4 g/dL (32.0-36.0); Mean Corpuscular Volume 107.8 fL (80.0-100.0); Mean Platelet Volume 12.9 fL (9.4-12.4); Platelet Count 204 K/uL (130-400); RDW Coefficient of Variation 15.8 % (11.5-14.5); RDW Standard Deviation 62.1 fL (36.4-46.3); Red Blood Count 2.81 M/uL (4.63-6.08); White Blood Count 10.01 K/ul (4.8-10.8)
[2021-10-27 17:04] LABS: Alanine Aminotransferase 14 U/L (7-52); Albumin Level 2.6 gm/dl (3.4-5.0); Alkaline Phosphatase 115 U/L (34-104); Anion Gap 5 (3-11); Aspartate Aminotransferase 132 U/L (13-39); Bilirubin Direct 0.5 mg/dl (0-0.2); Bilirubin,Total 1.1 mg/dl (0.2-1.0); Blood Urea Nitrogen 7 mg/dl (6-23); Calcium 8.2 mg/dl (8.5-10.1); Carbon Dioxide 28 mmol/L (21-32); Chloride 103 mmol/L (98-107); Creatinine Clr Calc Pharmacy 268.5 ml/min; Est GFR (African American) > 150.0 ml/min; Est GFR (Non-African American) 138.4 ml/min; Glucose 103 mg/dl (70-99(Fasting)); Magnesium 1.7 mg/dl (1.7-2.4); Phosphorus 3.3 mg/dl (2.5-4.9); Potassium 4.1 mmol/L (3.5-5.1); Sodium 136 mmol/L (136-145); Total Protein 6.2 gm/dl (6.0-8.3)
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
[2021-10-27] MEDS: chlordiazePOXIDE HCl 5 MG CAP PO SCH (21:14)
[2021-10-28] MEDS: BUPRENORPHINE/NALOXONE 8/2 MG TAB SL SCH ×2 (07:19→21:18)
[2021-10-28] MEDS: ACETAMINOPHEN 325 MG TAB PO PRN (07:19)
[2021-10-28] MEDS: chlordiazePOXIDE HCl 5 MG CAP PO SCH ×2 (07:19→14:10)
[2021-10-28] MEDS: lisinopril 20 MG TAB PO SCH (07:20)
[2021-10-28] MEDS: CHOLECALCIFEROL 5,000 UNITS 125 MCG TAB PO SCH (07:20)
[2021-10-28] MEDS: ENOXAPARIN INJ 40 MG/0.4 ML SYR SQ SCH ×2 (07:20→21:18)
[2021-10-28] MEDS: FOLIC ACID 1 MG in SYRINGE 9.8 ML IV SCH (07:20)
[2021-10-28 08:06] LABS: Hematocrit (blood only) 31.7 % (40.1-51.0); Hemoglobin 9.6 g/dl (14.0-18.0); Mean Corpuscular Hemoglobin 32.4 pg (25.0-34.0); Mean Corpuscular Hgb Conc 30.3 g/dL (32.0-36.0); Mean Corpuscular Volume 107.1 fL (80.0-100.0); RDW Coefficient of Variation 15.5 % (11.5-14.5); RDW Standard Deviation 60.7 fL (36.4-46.3); Red Blood Count 2.96 M/uL (4.63-6.08); White Blood Count 7.91 K/ul (4.8-10.8)
[2021-10-28 08:15] LABS: Mean Platelet Volume 13.8 fL (9.4-12.4); Platelet Count 217 K/uL (130-400)
[2021-10-28 08:16] LABS: Basophils # (auto) 0.12 K/uL (0-0.2); Basophils % (auto) 1.5 %; Eosinophils # (auto) 0.24 K/uL (0-0.50); Immature Granulocytes # (auto) 0.07 K/uL (0.00-0.02); Immature Granulocytes % (auto) 0.9 %; Lymphocytes # (auto) 1.88 K/uL (1.2-3.4); Lymphocytes % (auto) 23.8 %; Monocytes # (auto) 1.09 K/uL (0.24-0.82); Monocytes % (auto) 13.8 %; Neutrophils # (auto) 4.51 K/uL (1.4-6.5)
[2021-10-28 08:30] LABS: Anion Gap 5 (3-11); BUN Creatinine Ratio 12.5 (10-20); Blood Urea Nitrogen 6 mg/dl (6-23); Calcium 8.3 mg/dl (8.5-10.1); Carbon Dioxide 30 mmol/L (21-32); Chloride 103 mmol/L (98-107); Est GFR (African American) > 150.0 ml/min; Est GFR (Non-African American) 140.8 ml/min; Glucose 90 mg/dl (70-99(Fasting)); Magnesium 1.8 mg/dl (1.7-2.4); Potassium 4.1 mmol/L (3.5-5.1); Sodium 138 mmol/L (136-145)
[2021-10-28] MEDS: GABAPENTIN 600 MG TAB PO SCH ×2 (10:05→21:18)
[2021-10-28] MEDS: PANTOprazole 40 MG in SYRINGE 0 ML IV SCH (10:30)
[2021-10-28] MEDS: levoFLOXacin/D5W 750 MG/150 ML BAG IV SCH (10:31)
[2021-10-28 11:58] LABS: Adenovirus PCR Not Detected (NotDetected); Bordetella parapertussis PCR Not Detected (NotDetected); Bordetella pertussis PCR Not Detected (NotDetected); Chlamydia pneumoniae PCR Not Detected (NotDetected); Coronavirus 229E PCR Not Detected (NotDetected); Coronavirus CoV-2 (COVID19)PCR Not Detected (NotDetected); Coronavirus HKU1 PCR Not Detected (NotDetected); Coronavirus NL63 PCR Not Detected (NotDetected); Coronavirus OC43PCR Not Detected (NotDetected); Human Metapneumovirus PCR Not Detected (NotDetected); Influenza A PCR Not Detected (NotDetected); Influenza B PCR Not Detected (NotDetected); Mycoplasma pneumoniae PCR Not Detected (NotDetected); Parainfluenza Virus 1 PCR Not Detected (NotDetected); Parainfluenza Virus 2 PCR Not Detected (NotDetected); Parainfluenza Virus 3 PCR Not Detected (NotDetected); Parainfluenza Virus 4 PCR Not Detected (NotDetected); Respiratory Syncytial VirusPCR Not Detected (NotDetected); Rhinovirus/Enterovirus PCR Not Detected (NotDetected)
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
[2021-10-28] MEDS ORDERED: LORazepam 0.5 MG in SYRINGE 0.5 ML IV PRN (14:45)
[2021-10-29 07:33] LABS: Creatinine Clr Calc Pharmacy 319.6 ml/min; Est GFR (African American) > 150.0 ml/min; Est GFR (Non-African American) 148.7 ml/min
[2021-10-29] MEDS: BUPRENORPHINE/NALOXONE 8/2 MG TAB SL SCH ×2 (08:35→21:17)
[2021-10-29] MEDS: CHOLECALCIFEROL 5,000 UNITS 125 MCG TAB PO SCH (08:35)
[2021-10-29] MEDS: lisinopril 20 MG TAB PO SCH (08:35)
[2021-10-29] MEDS: FOLIC ACID 1 MG in SYRINGE 9.8 ML IV SCH (08:35)
[2021-10-29] MEDS: ENOXAPARIN INJ 40 MG/0.4 ML SYR SQ SCH ×2 (08:36→21:18)
[2021-10-29] MEDS: levoFLOXacin/D5W 750 MG/150 ML BAG IV SCH (11:34)
[2021-10-29] MEDS: PANTOprazole 40 MG in SYRINGE 0 ML IV SCH (11:34)
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
[2021-10-29] MEDS: LORazepam 1 MG TAB PO PRN (18:21)
[2021-10-29] MEDS ORDERED: GABAPENTIN 600 MG TAB PO SCH (22:00)
[2021-10-30] MEDS: LORazepam 1 MG TAB PO PRN ×2 (08:25→17:41)
[2021-10-30] MEDS: ENOXAPARIN INJ 40 MG/0.4 ML SYR SQ SCH ×2 (09:43→20:01)
[2021-10-30] MEDS: FOLIC ACID 1 MG TAB PO SCH (09:43)
[2021-10-30] MEDS: lisinopril 20 MG TAB PO SCH (09:45)
[2021-10-30] MEDS: CHOLECALCIFEROL 5,000 UNITS 125 MCG TAB PO SCH (09:45)
[2021-10-30] MEDS: BUPRENORPHINE/NALOXONE 8/2 MG TAB SL SCH ×2 (09:49→20:01)
[2021-10-30] MEDS: THIAMINE HCL 500 MG in SODIUM CHLORIDE 0.9% 50 ML IV SCH ×2 (10:34→18:12)
[2021-10-30 10:48] LABS: Base Excess VBG 5.8 mEq/L; HCO3 VBG 30 mmol/L; Oxygen Saturation VBG 81.7 %; PCO2 VBG 40 mmHg (38-50); PO2 VBG 46 mmHg; pH VBG 7.48 (7.36-7.41)
[2021-10-30 11:11] LABS: Alanine Aminotransferase 20 U/L (7-52); Albumin Globulin Ratio 0.7 (0.9-2); Albumin Level 2.8 gm/dl (3.4-5.0); Alkaline Phosphatase 137 U/L (34-104); Anion Gap 6 (3-11); Aspartate Aminotransferase 183 U/L (13-39); Bilirubin,Total 1.1 mg/dl (0.2-1.0); Blood Urea Nitrogen 7 mg/dl (6-23); Calcium 8.7 mg/dl (8.5-10.1); Carbon Dioxide 28 mmol/L (21-32); Chloride 100 mmol/L (98-107); Creatinine Clr Calc Pharmacy 245.7 ml/min; Est GFR (African American) > 150.0 ml/min; Est GFR (Non-African American) 134.1 ml/min; Globulin 4.1 gm/dl (2.5-4.0); Glucose 109 mg/dl (70-99(Fasting)); Potassium 4.2 mmol/L (3.5-5.1); Sodium 134 mmol/L (136-145); Total Protein 6.9 gm/dl (6.0-8.3)
[2021-10-30 11:13] LABS: Hematocrit (blood only) 33.9 % (40.1-51.0); Hemoglobin 10.7 g/dl (14.0-18.0); Mean Corpuscular Hemoglobin 32.1 pg (25.0-34.0); Mean Corpuscular Hgb Conc 31.6 g/dL (32.0-36.0); Mean Corpuscular Volume 101.8 fL (80.0-100.0); Mean Platelet Volume 13.6 fL (9.4-12.4); Platelet Count 251 K/uL (130-400); RDW Coefficient of Variation 14.9 % (11.5-14.5); RDW Standard Deviation 55.8 fL (36.4-46.3); Red Blood Count 3.33 M/uL (4.63-6.08); White Blood Count 9.94 K/ul (4.8-10.8)
[2021-10-30 11:14] LABS: Basophils # (auto) 0.18 K/uL (0-0.2); Basophils % (auto) 1.8 %; Eosinophils # (auto) 0.41 K/uL (0-0.50); Eosinophils % (auto) 4.1 %; Immature Granulocytes # (auto) 0.15 K/uL (0.00-0.02); Immature Granulocytes % (auto) 1.5 %; Lymphocytes # (auto) 2.05 K/uL (1.2-3.4); Lymphocytes % (auto) 20.6 %; Monocytes # (auto) 1.35 K/uL (0.24-0.82); Monocytes % (auto) 13.6 %; Neutrophils % (auto) 58.4 %
[2021-10-30] MEDS: levoFLOXacin 750 MG TAB PO SCH (11:24)
[2021-10-30] MEDS: PANTOprazole 40 MG TAB PO SCH (11:24)
--- NOTE | 2021-10-30 11:59 | Hospitalist Progress Note ---
Date of Service October 30, 2021 Assessment & Plan (1) Pneumonia: Plan: b/l. Aspiration vs Community-acquired. Initially on Ceftriaxone and Azithromycin for a few days and then converted to Unasyn. Patient continued with low-grade fevers and thus Unasyn changed to Levaquin on 10/28/21 for better gram negative coverage; day #3 of such. Multiple sets of blood cultures negative. Biofire (including COVID) 10/28/21 negative. Patient requiring minimal amount of NC o2. Continue pulmonary toilet. Repeat cxr in 48 hours - sooner if fevers persist. (2) Acute respiratory failure: Plan: Intubated 10/16/21. Extubated to BIPAP 10/17/21. Acute resp failure 2nd to aspiration pneumonia. Has nearly weaned off NC O2. (3) Acute metabolic encephalopathy: Plan: Multiple possible etiologies - metabolic (pneumonia, recent RLE cellulitis, nutritional deficiencies, etc) vs toxic (benzodiazepines) vs combination vs other. Cont Librium 10mg TID. wean next 1-2 days. Start thiamine 500mg IV TID x 3 days. Of note - most recent TSH, B12, ammonia levels wnl. VBG without hypercarbia. (4) Cellulitis of right leg: Plan: 2nd MSSA. Received Unasyn then rocephin. Cellulitis resolved. All blood cultures negative. (5) Alcohol use disorder: Plan: Initially had intoxication at admission, then developed withdrawal. Treated with phenobarbital then tapering gabapentin and librium. Wean librium tomorrow to 5mg TID. Cont gabapentin for suspected neuropathy of both feet - 300mg BID. Continue thiamine, multivitamin, folic acid Continue seizure precautions (6) Electrolyte abnormality: Plan: Most recent K/Mag/Phos/Ca all acceptable. (7) Hepatitis C: Plan: Viral load around 7000 AST has climbed some over the last few days - check CPK Needs ID/GI f/u post-discharge (8) Opioid use disorder: Plan: Continue Suboxone twice daily (9) HTN (hypertension), benign: Plan: BPs are low-normal on 20mg lisinopril. will reduce dose back to 10mg/day. 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 Can't rule out a nutritional deficiency. Gabapentin 300mg BID. Thiamine 500mg TID x 3 days. (16) Vitamin D deficiency: Plan: 10/22/21 level undetectable currently on vit D 5000 IU daily will need level repeat in 3 months Plan dipso - needs rehab unsafe to return home -- too weak Admission and Anticipated Discharge Date Admission Date: October 14, 2021 Subjective patient sleeping heavily when I first arrived to see him easily awoke when I called his name he c/o "burning" in all his toes b/l denies burning/paresthesias in the shins or the hands denies significant back pain he endorses significant weakness has been out of bed very little since admission still coughing but no dyspnea at rest appetite fair Review of Systems Review of Systems: gen - no rigors cv - no orthopnea pulm - no dyspnea at rest GI - no abd pain, no diarrhea - voiding fine Physical Exam Physical Exam: gen - looks tired, NAD, follows commands psych - a/o x 3 mouth - MMM neck - no JVD heart - RRR, s1 s2, no murmur lungs - b/l basilar rales with occasional wheezes abd - soft, mildly distended, BS+, NT ext - mild edema b/l, pulses 2+ b/l skin - numerous erythematous lesions b/l legs much worse on the right; no cellulitis of RLE neuro - strength 5/5 b/l hip flexion, b/l knee extension, and dorsiflexion/plantarflexion of both feet; no asterixis; mild tremors Results & Data Results & Data ([facility]) Vital Signs (Past 12 Hours) Vital Signs Temp Pulse Pulse Resp BP Pulse Ox O2 Del Method 10/30/21 07:16 37.3 C 109 H 12 128/85 96 Nasal Cannula 10/30/21 05:17 88 10 L 93 O2 Flow Rate FiO2 10/30/21 07:16 2 10/30/21 05:17 35 Laboratory Results Laboratory Results - last 24 hr 10/30/21 10/30/21 10/30/21 10:31 10:31 10:31 WBC 9.94 RBC 3.33 L Hgb 10.7 L Hct 33.9 L MCV 101.8 H MCH 32.1 MCHC 31.6 L RDW Std Deviation 55.8 H RDW Coeff of Desiree 14.9 H Plt Count 251 MPV 13.6 H Immature Gran % (Auto) 1.5 Neut % (Auto) 58.4 Lymph % (Auto) 20.6 Irwin % (Auto) 13.6 Eos % (Auto) 4.1 Baso % (Auto) 1.8 Neut # (Auto) 5.80 Lymph # (Auto) 2.05 Irwin # (Auto) 1.35 H Eos # (Auto) 0.41 Baso # (Auto) 0.18 Immature Gran # (Auto) 0.15 H VBG pH VBG pCO2 VBG pO2 VBG HCO3 VBG O2 Saturation VBG Base Excess Sodium 134 L Potassium 4.2 Chloride 100 Carbon Dioxide 28 Anion Gap 6 BUN 7 Creatinine 0.54 L Est Cr Clr Drug Dosing 245.7 Est GFR ( Amer) > 150.0 Est GFR (Non-Af Amer) 134.1 BUN/Creatinine Ratio 13.0 Glucose 109 H Calcium 8.7 Total Bilirubin 1.1 H AST 183 H ALT 20 Alkaline Phosphatase 137 H Ammonia 38.0 Total Protein 6.9 Albumin 2.8 L Globulin 4.1 H Albumin/Globulin Ratio 0.7 L 10/30/21 10:31 WBC RBC Hgb Hct MCV MCH MCHC RDW Std Deviation RDW Coeff of Desiree Plt Count MPV Immature Gran % (Auto) Neut % (Auto) Lymph % (Auto) Irwin % (Auto) Eos % (Auto) Baso % (Auto) Neut # (Auto) Lymph # (Auto) Irwin # (Auto) Eos # (Auto) Baso # (Auto) Immature Gran # (Auto) VBG pH 7.48 H VBG pCO2 40 VBG pO2 46 VBG HCO3 30 VBG O2 Saturation 81.7 VBG Base Excess 5.8 Sodium Potassium Chloride Carbon Dioxide Anion Gap BUN Creatinine Est Cr Clr Drug Dosing Est GFR ( Amer) Est GFR (Non-Af Amer) BUN/Creatinine Ratio Glucose Calcium Total Bilirubin AST ALT Alkaline Phosphatase Ammonia Total Protein Albumin Globulin Albumin/Globulin Ratio PG Care Time/CCT Total # of Minutes Spent Total Time Spent with Patient: Total time spent is greater than 50% in coordination of care (as documented) at patient's floor/unit and/or counseling patient: Coding Level of Care Code 23641 Subseq Hosp Care Lvl 3 Diagnoses Pneumonia J18.9 Acute respiratory failure J96.00 Acute metabolic encephalopathy G93.41 Cellulitis of right leg L03.115 Alcohol use disorder Electrolyte abnormality E87.8 Hepatitis C B19.20 Opioid use disorder F11.90 HTN (hypertension), benign I10 Physical deconditioning R53.81 Obesity (BMI 30-39.9) E66.9 Malnutrition due to starvation E46; T73.0XXS Tobacco dependence F17.200 DVT prophylaxis Z29.9 Neuropathy G62.9 Vitamin D deficiency E55.9
[2021-10-30] MEDS ORDERED: IPRATROPIUM BROMIDE/ALBUTEROL respimat INH INH SCH (13:00)
[2021-10-30] MEDS: IPRATROPIUM BROMIDE HFA INHALER INH SCH ×2 (15:25→19:23)
[2021-10-30] MEDS: ALBUTEROL HFA 8 GM INHALER INH SCH ×2 (15:25→19:23)
[2021-10-30] MEDS: GABAPENTIN 300 MG CAP PO SCH (20:01)
[2021-10-31] MEDS: THIAMINE HCL 500 MG in SODIUM CHLORIDE 0.9% 50 ML IV SCH ×3 (03:05→20:25)
[2021-10-31] MEDS: LORazepam 1 MG TAB PO PRN (03:08)
[2021-10-31] MEDS: ALBUTEROL HFA 8 GM INHALER INH SCH ×4 (07:18→19:17)
[2021-10-31] MEDS: IPRATROPIUM BROMIDE HFA INHALER INH SCH ×4 (07:18→19:17)
[2021-10-31] MEDS: CHOLECALCIFEROL 5,000 UNITS 125 MCG TAB PO SCH (09:41)
[2021-10-31] MEDS: ENOXAPARIN INJ 40 MG/0.4 ML SYR SQ SCH ×2 (09:42→21:17)
[2021-10-31] MEDS: GABAPENTIN 300 MG CAP PO SCH ×2 (09:42→21:17)
[2021-10-31] MEDS: FOLIC ACID 1 MG TAB PO SCH (09:42)
[2021-10-31] MEDS: PANTOprazole 40 MG TAB PO SCH (09:43)
[2021-10-31] MEDS: lisinopril 20 MG TAB PO SCH (09:43)
[2021-10-31] MEDS: BUPRENORPHINE/NALOXONE 8/2 MG TAB SL SCH ×2 (09:49→21:17)
[2021-10-31] MEDS: levoFLOXacin 750 MG TAB PO SCH (17:08)
--- NOTE | 2021-10-31 21:34 | Hospitalist Progress Note ---
Date of Service October 31, 2021 Assessment & Plan (1) Pneumonia: Plan: b/l. Aspiration vs Community-acquired. Initially on Ceftriaxone and Azithromycin for a few days and then converted to Unasyn. Patient continued with low-grade fevers and thus Unasyn changed to Levaquin on 10/28/21 for better gram negative coverage; day #4 of such. Multiple sets of blood cultures negative. Biofire (including COVID) 10/28/21 negative. Continue pulmonary toilet. Repeat cxr tomorrow AM. (2) Acute respiratory failure: Plan: Intubated 10/16/21. Extubated to BIPAP 10/17/21. Acute resp failure 2nd to aspiration pneumonia. O2 has been weaned off. (3) Acute metabolic encephalopathy: Plan: Multiple possible etiologies - metabolic (pneumonia, recent RLE cellulitis, nutritional deficiencies, etc) vs toxic (benzodiazepines) vs combination vs other. Cont Librium 10mg TID. wean to 5mg TID today. Cont thiamine 500mg IV TID x 3 days. Of note - most recent TSH, B12, ammonia levels wnl. VBG without hypercarbia. (4) Cellulitis of right leg: Plan: 2nd MSSA. Received Unasyn then rocephin. Cellulitis resolved. All blood cultures negative. (5) Alcohol use disorder: Plan: Initially had intoxication at admission, then developed withdrawal. Treated with phenobarbital then tapering gabapentin and librium. Wean librium to 5mg TID. Cont gabapentin for suspected neuropathy of both feet - 300mg BID. Continue thiamine, multivitamin, folic acid Continue seizure precautions (6) Electrolyte abnormality: Plan: Most recent K/Mag/Phos/Ca all acceptable. (7) Hepatitis C: Plan: Viral load around 7000 AST has climbed some over the last few days - check CPK Needs ID/GI f/u post-discharge (8) Opioid use disorder: Plan: Continue Suboxone twice daily (9) HTN (hypertension), benign: Plan: BPs are low-normal on 20mg lisinopril. reduced dose back to 10mg/day. 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 Can't rule out a nutritional deficiency. Gabapentin 300mg BID. Thiamine 500mg TID x 3 days. Check a lyme screen. (16) Vitamin D deficiency: Plan: 10/22/21 level undetectable currently on vit D 5000 IU daily will need level repeat in 3 months Plan dipso - needs rehab unsafe to return home -- too weak I updated pt's roommate (contact listed in chart) today - questions answered pt's mother - Tiffanie Hodge [phone] I will update Tiffanie tomorrow on Admission and Anticipated Discharge Date Admission Date: October 14, 2021 Subjective patient - even with 2 therapists helping today - could NOT stand at bedside he still thinks he can return home with his mother, however, at discharge he is eating fair energy fair sleeping alot, however denies pulmonary symptoms today Review of Systems Review of Systems: gen - no chills cv - no cp, no orthopnea pulm - occasional cough; no dyspnea neuro - cont to c/o "burning" in his toes Physical Exam Physical Exam: gen - tired again, NAD, follows commands psych - a/o x 3 mouth - MMM neck - no JVD heart - RR, tachy, s1 s2, no murmur lungs - b/l basilar rales with wheezes abd - soft, ND, BS+, NT ext - trace edema b/l, pulses 2+ b/l skin - numerous erythematous lesions b/l legs much worse on the right; no cellulitis of RLE neuro - strength 5/5 b/l hip flexion, b/l knee extension, and dorsiflexion/plantarflexion of both feet; no asterixis; mild tremors but maybe slightly better than previous Results & Data Results & Data ([facility]) Vital Signs (Past 12 Hours) Vital Signs Temp Pulse Pulse Resp BP Pulse Ox O2 Del Method 10/31/21 19:17 104 H 18 92 Room Air 10/31/21 15:53 37.7 C H 102 H 20 101/68 90 Room Air 10/31/21 14:16 105 H 16 91 Room Air 10/31/21 12:54 94 10/31/21 11:12 108 H 18 92 Room Air Laboratory Results Laboratory Results - last 24 hr 10/31/21 11:56 POC Glucose 119 H PG Care Time/CCT Total # of Minutes Spent Total Time Spent with Patient: Total time spent is greater than 50% in coordination of care (as documented) at patient's floor/unit and/or counseling patient: Coding Level of Care Code 41311 Subseq Hosp Care Lvl 2 Diagnoses Pneumonia J18.9 Acute respiratory failure J96.00 Acute metabolic encephalopathy G93.41 Cellulitis of right leg L03.115 Alcohol use disorder Electrolyte abnormality E87.8 Hepatitis C B19.20 Opioid use disorder F11.90 HTN (hypertension), benign I10 Physical deconditioning R53.81 Obesity (BMI 30-39.9) E66.9 Malnutrition due to starvation E46; T73.0XXS Tobacco dependence F17.200 DVT prophylaxis Z29.9 Neuropathy G62.9 Vitamin D deficiency E55.9
[2021-11-01] MEDS: LORazepam 1 MG TAB PO PRN ×2 (01:25→19:39)
[2021-11-01] MEDS: THIAMINE HCL 500 MG in SODIUM CHLORIDE 0.9% 50 ML IV SCH ×2 (03:27→10:37)
[2021-11-01] MEDS: IPRATROPIUM BROMIDE HFA INHALER INH SCH ×4 (07:05→18:03)
[2021-11-01] MEDS: ALBUTEROL HFA 8 GM INHALER INH SCH ×4 (07:05→18:03)
[2021-11-01] MEDS: BUPRENORPHINE/NALOXONE 8/2 MG TAB SL SCH ×2 (07:50→20:13)
[2021-11-01] MEDS: PANTOprazole 40 MG TAB PO SCH (07:51)
[2021-11-01] MEDS: GABAPENTIN 300 MG CAP PO SCH ×2 (07:51→20:14)
[2021-11-01] MEDS: FOLIC ACID 1 MG TAB PO SCH (07:51)
[2021-11-01] MEDS: CHOLECALCIFEROL 5,000 UNITS 125 MCG TAB PO SCH (07:51)
[2021-11-01] MEDS: ENOXAPARIN INJ 40 MG/0.4 ML SYR SQ SCH ×2 (07:52→20:15)
[2021-11-01] MEDS: NICOTINE 21 MG/24 HR TDSY TD SCH (07:52)
[2021-11-01] MEDS: CEROVITE ADV FORMULA TAB PO SCH (07:52)
[2021-11-01 07:55] LABS: Hematocrit (blood only) 37.2 % (40.1-51.0); Hemoglobin 11.7 g/dl (14.0-18.0); Mean Corpuscular Hgb Conc 31.5 g/dL (32.0-36.0); Mean Corpuscular Volume 101.6 fL (80.0-100.0); RDW Coefficient of Variation 14.7 % (11.5-14.5); RDW Standard Deviation 55.5 fL (36.4-46.3); Red Blood Count 3.66 M/uL (4.63-6.08); White Blood Count 10.23 K/ul (4.8-10.8)
[2021-11-01 07:59] LABS: Basophils # (auto) 0.17 K/uL (0-0.2); Basophils % (auto) 1.7 %; Eosinophils # (auto) 0.62 K/uL (0-0.50); Eosinophils % (auto) 6.1 %; Immature Granulocytes # (auto) 0.15 K/uL (0.00-0.02); Immature Granulocytes % (auto) 1.5 %; Lymphocytes # (auto) 2.43 K/uL (1.2-3.4); Lymphocytes % (auto) 23.8 %; Mean Platelet Volume 13.3 fL (9.4-12.4); Monocytes # (auto) 1.29 K/uL (0.24-0.82); Monocytes % (auto) 12.6 %; Neutrophils # (auto) 5.57 K/uL (1.4-6.5); Neutrophils % (auto) 54.3 %; Platelet Count 258 K/uL (130-400)
[2021-11-01 08:25] LABS: Albumin Globulin Ratio 0.7 (0.9-2); Albumin Level 3.1 gm/dl (3.4-5.0); BUN Creatinine Ratio 12.5 (10-20); Bilirubin,Total 1.2 mg/dl (0.2-1.0); Calcium 9.2 mg/dl (8.5-10.1); Creatinine Clr Calc Pharmacy 206.4 ml/min; Est GFR (Non-African American) 125.1 ml/min; Globulin 4.4 gm/dl (2.5-4.0); Magnesium 1.8 mg/dl (1.7-2.4); Potassium 4.5 mmol/L (3.5-5.1); Total Protein 7.5 gm/dl (6.0-8.3)
[2021-11-01] MEDS: chlordiazePOXIDE HCl 5 MG CAP PO SCH ×3 (08:40→20:13)
[2021-11-01 08:43] LABS: Lyme Ab IgG w/WB Rflx Negative (Negative)
[2021-11-01 08:57] LABS: Lyme Ab IgM w/WB Rflx Equivocal (Negative)
[2021-11-01] MEDS ORDERED: lisinopril 10 MG TAB PO SCH (09:00)
--- NOTE | 2021-11-01 12:18 | XRay Report ---
XR chest 1V portable HISTORY: fever, pneumonia, interval change COMPARISON: Chest 10/27/2021. FINDINGS: There are low lung volumes. No pneumothorax. No pleural effusions. The heart is mildly enla rged. This remains unchanged. Diffuse interstitial thickening and left greater than right patchy airs pace opacities have slightly improved. IMPRESSION: Slight improvement in the interstitial thickening and patchy bilateral airspace opacities. ACT 112: Negative or not required by law. Electronically signed by: Jhonny Meza M.D. 11/01/2021 12:17 PM
[2021-11-01] MEDS: DOXYCYCLINE HYCLATE 100 MG CAP PO SCH ×2 (12:28→20:14)
[2021-11-01] MEDS: levoFLOXacin 750 MG TAB PO SCH (12:29)
[2021-11-01] MEDS: THIAMINE HCL 100 MG TAB PO SCH (20:14)
--- NOTE | 2021-11-01 21:16 | Hospitalist Progress Note ---
Date of Service November 01, 2021 Assessment & Plan (1) Pneumonia: Plan: b/l. Aspiration vs Community-acquired. CXR today shows improved infiltrates. Continues with low-grade fevers -- due to pneumonia? due to diarrhea? due to other process? Initially on Ceftriaxone and Azithromycin for a few days and then converted to Unasyn. Patient continued with low-grade fevers and thus Unasyn changed to Levaquin on 10/28/21 for better gram negative coverage; day #5 of such. Multiple sets of blood cultures negative. Biofire (including COVID) 10/28/21 negative. Continue pulmonary toilet. Plan 7 days of levaquin then stop (of note - doxy added today to cover Lyme). (2) Acute respiratory failure: Plan: Intubated 10/16/21. Extubated to BIPAP 10/17/21. Acute resp failure 2nd to aspiration pneumonia. O2 has been weaned off. CXR improving. (3) Acute metabolic encephalopathy: Plan: Multiple possible etiologies - metabolic (pneumonia, recent RLE cellulitis, nutritional deficiencies, etc) vs toxic (benzodiazepines) vs combination vs other. IMPROVED. Cont Librium taper - now at 5mg TID x 2 days, then 5mg BID x 2 days, then 5mg daily x 2 days, then stop. Cont thiamine 500mg PO TID x 1 more day, then place on 200mg BID. Of note - most recent TSH, B12, ammonia levels wnl. VBG without hypercarbia. (4) Cellulitis of right leg: Plan: 2nd MSSA. Received Unasyn then rocephin. Cellulitis resolved. All blood cultures negative. (5) Alcohol use disorder: Plan: Initially had intoxication at admission, then developed withdrawal. Treated with phenobarbital then tapering gabapentin and librium. Cont librium taper -- see above. Cont gabapentin for suspected neuropathy of both feet - 300mg BID. Continue thiamine, multivitamin, folic acid Continue seizure precautions (6) Electrolyte abnormality: Plan: Most recent K/Mag/Phos/Ca all acceptable. (7) Hepatitis C: Plan: Viral load around 7000 AST has climbed some over the last few days - check CPK Needs ID/GI f/u post-discharge (8) Opioid use disorder: Plan: Continue Suboxone twice daily (9) HTN (hypertension), benign: Plan: BPs were low-normal on 20mg lisinopril. reduced dose back to 10mg/day. still low even on 10mg - will hold lisinopril moving forward. 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 follow western blot. Cont PT/OT will need rehab post-discharge (11) Obesity (BMI 30-39.9): Plan: BMI 34 (12) Malnutrition due to starvation: Plan: MVI/thiamine/folic acid WIll give LR x 2 liters overnight for low-normal BPs and looks mildly volume contracted on exam today (13) Tobacco dependence: Plan: benefits counselor to quit cont nicoderm patch (14) DVT prophylaxis: Plan: Continue enoxaparin 40mg BID (15) Neuropathy: Plan: Likely 2nd to etoh abuse. Can't rule out a nutritional deficiency. Gabapentin 300mg BID. Thiamine 500mg TID x 3 days then 200mg BID thereafter. Lyme screen is equivocal - see below (16) Vitamin D deficiency: Plan: 10/22/21 level undetectable currently on vit D 5000 IU daily will need level repeat in 3 months (17) Positive Lyme disease serology: Plan: to be safe will add doxy 100mg BID while awaiting western blot (18) Fever: Plan: etiology? pneumonia? etoh withdrawal? lyme? other? if fever persists will need additional w/u (19) Diarrhea: Plan: check c diff add lactinex at minimum is abx-associated diarrhea Plan dipso - needs rehab unsafe to return home -- too weak I updated pt's roommate (contact listed in chart) 10/31/21 - questions answered pt's mother - Tiffanie Hodge [phone] I will update Tiffanie prior to the weekend Admission and Anticipated Discharge Date Admission Date: October 14, 2021 Subjective patient agreeable to inpatient rehab after d/c he actually brought this up on his own accord during my visit he is having diarrhea - large liquid stool last pm, and had another today denies dyspnea denies cough denies abd pain eating ok denies pain any location Review of Systems Review of Systems: gen - ongoing low-grade fevers with sweats cv - no orthopnea, no pain pulm - no dyspnea at rest GI - no nausea or emesis; +diarrhea - voiding ok musculo - denies pain any location neuro - no headache Physical Exam Physical Exam: gen - very awake, alert today; watching TV; NAD psych - a/o x 3 - most awake he has been all week mouth - MM slightly dry neck - no JVD heart - RR, tachy, s1 s2, no murmur lungs - b/l basilar rales, no increased work of breathing abd - soft, ND, BS+, NT ext - trace edema b/l, pulses 2+ b/l skin - numerous erythematous lesions b/l legs much worse on the right; no cellulitis of RLE neuro - strength 5/5 b/l hip flexion, b/l knee extension, and dorsiflexion/plantarflexion of both feet; mild tremors again Results & Data Results & Data ([facility]) Vital Signs (Past 12 Hours) Vital Signs Temp Pulse Resp BP Pulse Ox O2 Del Method 11/01/21 18:05 104 H 18 90 Room Air 11/01/21 15:59 37.7 C H 18 95/62 L 90 Room Air 11/01/21 14:49 115 H 18 90 Room Air 11/01/21 11:32 110 H 18 90 Room Air Laboratory Results Laboratory Results - last 24 hr 11/01/21 11/01/21 11/01/21 07:29 07:29 07:29 WBC 10.23 RBC 3.66 L Hgb 11.7 L Hct 37.2 L MCV 101.6 H MCH 32.0 MCHC 31.5 L RDW Std Deviation 55.5 H RDW Coeff of Desiree 14.7 H Plt Count 258 MPV 13.3 H Immature Gran % (Auto) 1.5 Neut % (Auto) 54.3 Lymph % (Auto) 23.8 Geary % (Auto) 12.6 Eos % (Auto) 6.1 Baso % (Auto) 1.7 Neut # (Auto) 5.57 Lymph # (Auto) 2.43 Geary # (Auto) 1.29 H Eos # (Auto) 0.62 H Baso # (Auto) 0.17 Immature Gran # (Auto) 0.15 H Sodium 135 L Potassium 4.5 Chloride 101 Carbon Dioxide 29 Anion Gap 5 BUN 8 Creatinine 0.64 Est Cr Clr Drug Dosing 206.4 Est GFR ( Amer) 145.0 Est GFR (Non-Af Amer) 125.1 BUN/Creatinine Ratio 12.5 Glucose 95 Calcium 9.2 Magnesium 1.8 Total Bilirubin 1.2 H AST 185 H ALT 21 Alkaline Phosphatase 147 H Total Protein 7.5 Albumin 3.1 L Globulin 4.4 H Albumin/Globulin Ratio 0.7 L Stl C. diff Tox B Gene Lyme Disease IgG Ab Negative Lyme IgG (Western Blot) Lyme IgG 18 kDa Band Lyme IgG 23 kDa Band Lyme IgG 28 kDa Band Lyme IgG 30 kDa Band Lyme IgG 39 kDa Band Lyme IgG 41 kDa Band Lyme IgG 45 kDa Band Lyme IgG 58 kDa Band Lyme IgG 66 kDa Band Lyme IgG 93 kDa Band Lyme IgM Ab (WB) Lyme Disease IgM Ab Equivocal A Lyme IgM 23 kDa Band Lyme IgM 39 kDa Band Lyme IgM 41 kDa Band 11/01/21 11/01/21 07:29 19:43 WBC RBC Hgb Hct MCV MCH MCHC RDW Std Deviation RDW Coeff of Desiree Plt Count MPV Immature Gran % (Auto) Neut % (Auto) Lymph % (Auto) Geary % (Auto) Eos % (Auto) Baso % (Auto) Neut # (Auto) Lymph # (Auto) Geary # (Auto) Eos # (Auto) Baso # (Auto) Immature Gran # (Auto) Sodium Potassium Chloride Carbon Dioxide Anion Gap BUN Creatinine Est Cr Clr Drug Dosing Est GFR ( Amer) Est GFR (Non-Af Amer) BUN/Creatinine Ratio Glucose Calcium Magnesium Total Bilirubin AST ALT Alkaline Phosphatase Total Protein Albumin Globulin Albumin/Globulin Ratio Stl C. diff Tox B Gene Pending Lyme Disease IgG Ab Lyme IgG (Western Blot) Pending Lyme IgG 18 kDa Band Pending Lyme IgG 23 kDa Band Pending Lyme IgG 28 kDa Band Pending Lyme IgG 30 kDa Band Pending Lyme IgG 39 kDa Band Pending Lyme IgG 41 kDa Band Pending Lyme IgG 45 kDa Band Pending Lyme IgG 58 kDa Band Pending Lyme IgG 66 kDa Band Pending Lyme IgG 93 kDa Band Pending Lyme IgM Ab (WB) Pending Lyme Disease IgM Ab Lyme IgM 23 kDa Band Pending Lyme IgM 39 kDa Band Pending Lyme IgM 41 kDa Band Pending Diagnostic Findings Chest X-Ray 11/01/21 10:14 XR chest 1V portable HISTORY: fever, pneumonia, interval change COMPARISON: Chest 10/27/2021. FINDINGS: There are low lung volumes. No pneumothorax. No pleural effusions. The heart is mildly enlarged. This remains unchanged. Diffuse interstitial thickening and left greater than right patchy airspace opacities have slightly improved. IMPRESSION: Slight improvement in the interstitial thickening and patchy bilateral airspace opacities. ACT 112: Negative or not required by law. Electronically signed by: Jhonny Meza M.D. 11/01/2021 12:17 PM PG Care Time/CCT Total # of Minutes Spent Total Time Spent with Patient: Total time spent is greater than 50% in coordination of care (as documented) at patient's floor/unit and/or counseling patient: Coding Level of Care Code 95156 Subseq Hosp Care Lvl 3 Diagnoses Pneumonia J18.9 Acute respiratory failure J96.00 Acute metabolic encephalopathy G93.41 Cellulitis of right leg L03.115 Alcohol use disorder Electrolyte abnormality E87.8 Hepatitis C B19.20 Opioid use disorder F11.90 HTN (hypertension), benign I10 Physical deconditioning R53.81 Obesity (BMI 30-39.9) E66.9 Malnutrition due to starvation E46; T73.0XXS Tobacco dependence F17.200 DVT prophylaxis Z29.9 Neuropathy G62.9 Vitamin D deficiency E55.9 Positive Lyme disease serology R76.8 Fever R50.9 Diarrhea R19.7
[2021-11-01] MEDS: LACTATED RINGER'S 1,000 ML IV SCH (22:05)
[2021-11-02] MEDS: LACTATED RINGER'S 1,000 ML IV SCH (05:49)
[2021-11-02] MEDS: ALBUTEROL HFA 8 GM INHALER INH SCH (07:24)
[2021-11-02] MEDS: IPRATROPIUM BROMIDE HFA INHALER INH SCH (07:24)
[2021-11-02] MEDS ORDERED: IPRATROPIUM BROMIDE HFA INHALER INH PRN (07:44)
[2021-11-02] MEDS ORDERED: ALBUTEROL HFA 8 GM INHALER INH PRN (07:44)
[2021-11-02] MEDS: BUPRENORPHINE/NALOXONE 8/2 MG TAB SL SCH ×2 (08:17→21:00)
[2021-11-02] MEDS: chlordiazePOXIDE HCl 5 MG CAP PO SCH ×3 (08:17→21:00)
[2021-11-02] MEDS: LORazepam 1 MG TAB PO PRN ×3 (08:17→21:33)
[2021-11-02] MEDS: PANTOprazole 40 MG TAB PO SCH (08:21)
[2021-11-02] MEDS: GABAPENTIN 300 MG CAP PO SCH ×3 (08:21→21:00)
[2021-11-02] MEDS: FOLIC ACID 1 MG TAB PO SCH (08:21)
[2021-11-02] MEDS: NICOTINE 21 MG/24 HR TDSY TD SCH (08:22)
[2021-11-02] MEDS: ENOXAPARIN INJ 40 MG/0.4 ML SYR SQ SCH ×2 (08:22→21:00)
[2021-11-02] MEDS: THIAMINE HCL 100 MG TAB PO SCH ×2 (08:22→13:16)
[2021-11-02] MEDS: DOXYCYCLINE HYCLATE 100 MG CAP PO SCH ×2 (08:22→21:00)
[2021-11-02] MEDS: CEROVITE ADV FORMULA TAB PO SCH (08:23)
[2021-11-02] MEDS: CHOLECALCIFEROL 5,000 UNITS 125 MCG TAB PO SCH (08:23)
[2021-11-02] MEDS: ADVANCED PROBIOTIC 1250 MG CAPSULE PO SCH (09:04)
[2021-11-02] MEDS: levoFLOXacin 750 MG TAB PO SCH (12:03)
[2021-11-02] MEDS ORDERED: Ativan PO Alcohol Withdrawal--Active Protocol PO PRN (12:27)
[2021-11-02] MEDS ORDERED: LORazepam 1 MG TAB PO PRN ×2 (12:27)
[2021-11-02] MEDS: ACETAMINOPHEN 325 MG TAB PO PRN (15:33)
[2021-11-02 17:29] LABS: Hematocrit (blood only) 36.2 % (40.1-51.0); Hemoglobin 11.1 g/dl (14.0-18.0); Mean Corpuscular Hemoglobin 31.5 pg (25.0-34.0); Mean Corpuscular Hgb Conc 30.7 g/dL (32.0-36.0); Mean Corpuscular Volume 102.8 fL (80.0-100.0); RDW Coefficient of Variation 14.6 % (11.5-14.5); RDW Standard Deviation 55.2 fL (36.4-46.3); Red Blood Count 3.52 M/uL (4.63-6.08); White Blood Count 11.83 K/ul (4.8-10.8)
[2021-11-02 17:33] LABS: Mean Platelet Volume 13.3 fL (9.4-12.4); Platelet Count 245 K/uL (130-400)
[2021-11-02 17:46] LABS: D Dimer 3130 ug/L FEU (0-500)
[2021-11-02 17:48] LABS: Albumin Level 3.1 gm/dl (3.4-5.0); BUN Creatinine Ratio 17.7 (10-20); Bilirubin Direct 0.4 mg/dl (0-0.2); Bilirubin,Total 1.3 mg/dl (0.2-1.0); C Reactive Protein 4.1 mg/dl (0-0.5); Creatinine Clr Calc Pharmacy 165.9 ml/min; Est GFR (Non-African American) 114.7 ml/min; Total Protein 7.5 gm/dl (6.0-8.3)
[2021-11-02] MEDS ORDERED: OPTIRAY 300 500mL IV ONE (18:45)
--- NOTE | 2021-11-02 19:55 | CT Scan Report ---
CHEST CTA for PULMONARY ARTERIES CT DOSE: 615.98 mGy.cm HISTORY: fever, hypoxia, elevated dimer; eval PE TECHNIQUE: Multiaxial CT images of the chest were performed following the intravenous administration of contrast to evaluate the pulmonary arteries. Maximal intensity projection images were also obtaine d. A dose lowering technique was utilized adhering to the principles of ALARA. COMPARISON STUDY: Chest CT 10/01/2020. FINDINGS: Normal caliber thoracic aorta with no evidence for dissection. The heart is mildly enlarged . No pericardial effusion. Small left and trace right pleural effusions. Best seen on image 137 there is a single filling defect seen within a segmental/subsegmental pulmonary artery of the right middle lobe consistent with a pulmonary embolus. A few the left lower lobe pulmonary segmental pulmonary ar teries are nondiagnostic due to the respiratory motion artifact. No additional filling defect seen wi thin the remaining pulmonary arteries. No evidence for right-sided heart strain. No fractures within the visualized osseous structures. Hepatic steatosis. Low lung volumes with mild elevation the right hemidiaphragm. The visualized spleen is unremarkable. Normal esophagus. The thyroid gland enhances no rmally. No mediastinal or hilar lymphadenopathy. Small amount of consolidation within the bilateral l ower lobes posteriorly favors dependent change/atelectasis. No pneumothorax. Small amount of mucoid m aterial within the trachea. Otherwise, the remaining central airways are patent. A few additional pat mike groundglass and consolidative airspace opacities within within the left upper lobe and a few ray t patchy groundglass airspace opacities within the right upper lobe are noted. This favors a mild mul tifocal pneumonia. IMPRESSION: 1. A single segmental/subsegmental pulmonary embolus within the right middle lobe. No evidence for ri ght-sided heart strain. 2. Mild cardiomegaly. 3. Patchy bilateral upper lobe airspace opacities favor a multifocal pneumonia. 4. Small left and trace right pleural effusions. 5. Hepatic steatosis. ACT 112: Negative or not required by law. Electronically signed by: Jhonny Meza M.D. 11/02/2021 7:52 PM
--- NOTE | 2021-11-02 21:08 | Hospitalist Progress Note ---
Date of Service November 02, 2021 Assessment & Plan (1) Pulmonary embolus: Plan: as part of w/u for ongoing fevers I obtained a d-dimer which was markedly elevated. CTA chest with a single pulmonary embolus seen. dopplers of legs ordered. no h/o GI bleed or esophageal varices. will start heparin IV cautiously. should be a candidate for a DOAC. stop lovenox BID. (2) Fever: Plan: to date has had b/l pneumonia - adequately treated - along with RLE cellulitis 2nd MSSA. he does have a positive lyme screen and remains on doxy while awaiting Western Blot. Finishing a course of levaquin for pneumonia (day 6 of such). multiple blood cultures negative during this admission. anaplasmosis smear obtained today negative. will send anaplasmosis DNA. multiple COVID tests negative this admission. c diff negative. ongoing fevers - pulmonary embolus? diskitis/epidural abscess of lumbar spine given his back pain? other source? plan - * repeat blood cultures * l-spine MRI - r/o diskitis, r/o abscess * send anaplasmosis DNA * await Lyme Western blot * consider CT abd/pelvis given fluctuating LLQ pain/groin pain * if blood cultures are negative then echo to check valves can't rule out smoldering etoh withdrawal but he is 14+ days out from the start of this admission making that etiology unlikely (3) Elevated sed rate: Plan: severe; >100 etiology? see #2 above (4) Alcohol withdrawal: Plan: during past hospital stays he has had very prolonged etoh withdrawal during 1 stay it was well over 14 days in duration still possible he is experiencing some symptoms (tremors, etc) remains on etoh AWSS protocol ativan prn finishing a librium taper - currently on 5mg TID (5) Pneumonia: Plan: b/l. Aspiration vs Community-acquired. CT chest with b/l infiltrates c/w pneumonia. Continues with low-grade fevers -- see above. Initially on Ceftriaxone and Azithromycin for a few days and then converted to Unasyn. Patient continued with low-grade fevers and thus Unasyn changed to Levaquin on 10/28/21 for better gram negative coverage; day #6 of such. Multiple sets of blood cultures negative. Biofire (including COVID) 10/28/21 negative. Continue pulmonary toilet. Plan 7 days of levaquin then stop (of note - doxy added today to cover Lyme). (6) Acute respiratory failure: Plan: Intubated 10/16/21. Extubated to BIPAP 10/17/21. Acute resp failure 2nd to aspiration pneumonia. O2 has been weaned off. CXRs have improved. O2 sats low 90s but acceptable. (7) Acute metabolic encephalopathy: Plan: Multiple possible etiologies - metabolic (pneumonia, recent RLE cellulitis, nutritional deficiencies, etc) vs toxic (benzodiazepines) vs combination vs other. IMPROVED. Cont Librium taper - now at 5mg TID; wean to 5mg BID x 2 days tomorrow am, then 5mg daily x 2 days, then stop. Cont thiamine 500mg PO TID x 1 more day, then place on 200mg BID. Of note - most recent TSH, B12, ammonia levels wnl. VBG without hypercarbia. (8) Cellulitis of right leg: Plan: 2nd MSSA. Received Unasyn then rocephin. Cellulitis resolved. All blood cultures negative. (9) Alcohol use disorder: Plan: Initially had intoxication at admission, then developed withdrawal. Treated with phenobarbital then tapering gabapentin and librium. Cont librium taper -- see above. Cont gabapentin for suspected neuropathy of both feet - 300mg TID. Continue thiamine, multivitamin, folic acid Continue seizure precautions (10) Electrolyte abnormality: Plan: Most recent K/Mag/Phos/Ca all acceptable. (11) Hepatitis C: Plan: Viral load around 7000 AST has climbed some over the last few days - checked CPK and was wnl Needs ID/GI f/u post-discharge (12) Opioid use disorder: Plan: Continue Suboxone twice daily (13) HTN (hypertension), benign: Plan: BPs were low-normal on 20mg lisinopril. reduced dose back to 10mg/day. still low even on 10mg - will hold lisinopril moving forward. 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 follow western blot. 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 Can't rule out a nutritional deficiency. Can't rule out other factors. Gabapentin 300mg TID. Cont Thiamine supplementation. Lyme screen is equivocal - see below (20) Vitamin D deficiency: Plan: 10/22/21 level undetectable currently on vit D 5000 IU daily will need level repeat in 3 months (21) Positive Lyme disease serology: Plan: to be safe remains on doxy 100mg BID while awaiting western blot await anaplasmosis DNA (smear negative for inclusions) (22) Diarrhea: Plan: NEGATIVE c.diff cont lactinex at minimum has abx-associated diarrhea Plan dipso - needs rehab unsafe to return home -- too weak I updated pt's roommate (contact listed in chart) 10/31/21 - questions answered pt's mother - Tiffanie Hodge [phone] I will update Tiffanie this weekend very complex medically with numerous active issues - prolonged care today - 80 minutes in total transferring to telemetry due to ongoing fevers, concern for ?ongoing etoh withdrawal, waxing/waning mental status at times, etc Admission and Anticipated Discharge Date Admission Date: October 14, 2021 Subjective patient continues with mild tremors, sweats, paresthesias of b/l feet R>L (and especially the great toe on right), mild low back pain appetite fair just occasional cough still very weak in his legs when he coughs he has mild pain in his left groin region; otherwise he denies abd pain this afternoon developed temp of 38.3 denies headache, sore throat denies chest pain or orthopnea denies dyspnea at rest denies nausea/emesis Review of Systems Review of Systems: gen - fevers, sweats, fatigue cv - no chest pain pulm - no sputum GI - some lingering diarrhea - no dysuria Physical Exam Physical Exam: gen - sleepy (had received ativan recently); finally did awake and once alert able to answer questions and follow commands; looks same as yesterday mouth - MMM face - no tenderness over his sinuses w/ palpation neck - no JVD heart - RR, tachy, s1 s2, no murmur lungs - b/l basilar rales (mild, fine), no increased work of breathing abd - soft, ND, BS+, NT ext - trace edema b/l, pulses 2+ b/l skin - numerous erythematous lesions b/l legs much worse on the right; no cellulitis of RLE however; candidal rash perirectal region musculo - with passive ROM of either hip he has no pain; no tenderness over c- spine or t-spine; mild tenderness with palpation over lower lumbar spine neuro - strength 5/5 b/l hip flexion, b/l knee extension, and dorsiflexion/plantarflexion of both feet; mild tremors still present Results & Data Results & Data ([facility]) Vital Signs (Past 12 Hours) Vital Signs Temp Pulse Resp BP Pulse Ox O2 Del Method 11/02/21 19:17 36.9 C 103 H 17 137/93 93 Room Air 11/02/21 18:40 37.1 C 11/02/21 17:26 37.6 C H 108 H 20 104/78 94 Room Air 11/02/21 15:19 38.3 C H 112 H 16 120/82 91 Room Air 11/02/21 13:09 37.4 C 111 H 20 129/84 91 Room Air 11/02/21 09:41 37.2 C 115 H 20 116/79 91 Room Air Laboratory Results Laboratory Results - last 24 hr 11/01/21 11/02/21 11/02/21 19:43 17:10 17:10 WBC 11.83 H RBC 3.52 L Hgb 11.1 L Hct 36.2 L MCV 102.8 H MCH 31.5 MCHC 30.7 L RDW Std Deviation 55.2 H RDW Coeff of Desiree 14.6 H Plt Count 245 MPV 13.3 H ESR 108 H D-Dimer Sodium Potassium Chloride Carbon Dioxide Anion Gap BUN Creatinine Est Cr Clr Drug Dosing Est GFR ( Amer) Est GFR (Non-Af Amer) BUN/Creatinine Ratio Glucose Calcium Total Bilirubin Direct Bilirubin AST ALT Alkaline Phosphatase C-Reactive Protein Total Protein Albumin Stl C. diff Tox B Gene Negative Cdiff Gene Anaplasma Smear See Comment 11/02/21 11/02/21 17:10 17:10 WBC RBC Hgb Hct MCV MCH MCHC RDW Std Deviation RDW Coeff of Desiree Plt Count MPV ESR D-Dimer 3130 H* Sodium 130 L Potassium 5.0 Chloride 102 Carbon Dioxide 23 Anion Gap 5 BUN 14 Creatinine 0.79 Est Cr Clr Drug Dosing 165.9 Est GFR ( Amer) 133.0 Est GFR (Non-Af Amer) 114.7 BUN/Creatinine Ratio 17.7 Glucose 100 H Calcium 9.0 Total Bilirubin 1.3 H Direct Bilirubin 0.4 H AST 125 H ALT 17 Alkaline Phosphatase 147 H C-Reactive Protein 4.10 H Total Protein 7.5 Albumin 3.1 L Stl C. diff Tox B Gene Anaplasma Smear PG Care Time/CCT Total # of Minutes Spent Total Time Spent with Patient: Total time spent is greater than 50% in coordination of care (as documented) at patient's floor/unit and/or counseling patient: Prolonged Care Time Prolonged Care Time: Yes Total Prolonged Care Time: 80 Coding Level of Care Code 30790 Subseq Hosp Care Lvl 3 (25 - SIGNIFICANT, SEPARATELY IDENTIFIABLE ) Diagnoses Pulmonary embolus I26.99 Fever R50.9 Elevated sed rate R70.0 Alcohol withdrawal F10.239 Complication of substance-induced condition: with unspecified complication Pneumonia J18.9 Acute respiratory failure J96.00 Acute metabolic encephalopathy G93.41 Cellulitis of right leg L03.115 Alcohol use disorder Electrolyte abnormality E87.8 Hepatitis C B19.20 Opioid use disorder F11.90 HTN (hypertension), benign I10 Physical deconditioning R53.81 Obesity (BMI 30-39.9) E66.9 Malnutrition due to starvation E46; T73.0XXS Tobacco dependence F17.200 DVT prophylaxis Z29.9 Neuropathy G62.9 Vitamin D deficiency E55.9 Positive Lyme disease serology R76.8 Diarrhea R19.7 Additional Codes Prolonged Care Time - Prolonged Care Time: Yes ([id number]) Time Spent (min) 80 (1) Alcohol withdrawal Complication of substance-induced condition: with unspecified complication Qualified Code(s): F10.239 - Alcohol dependence with withdrawal, unspecified
[2021-11-02] MEDS ORDERED: Heparin IV Adult Wt-Based Standard *NO* Bolus Protocol IV SCH (21:09)
[2021-11-02 21:55] LABS: Hematocrit (blood only) 36.6 % (40.1-51.0); Hemoglobin 11.3 g/dl (14.0-18.0); Mean Corpuscular Hemoglobin 31.5 pg (25.0-34.0); Mean Corpuscular Hgb Conc 30.9 g/dL (32.0-36.0); Mean Corpuscular Volume 101.9 fL (80.0-100.0); RDW Coefficient of Variation 14.6 % (11.5-14.5); RDW Standard Deviation 55.1 fL (36.4-46.3); Red Blood Count 3.59 M/uL (4.63-6.08); White Blood Count 11.14 K/ul (4.8-10.8)
[2021-11-02 21:58] LABS: Mean Platelet Volume 13.3 fL (9.4-12.4); Platelet Count 232 K/uL (130-400)
[2021-11-02 22:04] LABS: Basophils # (auto) 0.11 K/uL (0-0.2); Eosinophils # (auto) 1.06 K/uL (0-0.50); Eosinophils % (auto) 9.5 %; Immature Granulocytes # (auto) 0.12 K/uL (0.00-0.02); Immature Granulocytes % (auto) 1.1 %; Lymphocytes # (auto) 2.08 K/uL (1.2-3.4); Lymphocytes % (auto) 18.7 %; Monocytes # (auto) 1.21 K/uL (0.24-0.82); Monocytes % (auto) 10.9 %; Neutrophils # (auto) 6.56 K/uL (1.4-6.5); Neutrophils % (auto) 58.8 %
[2021-11-02 22:14] LABS: INR 1.2 (0.9-1.1); Partial Thromboplastin Ratio 1.1; Partial Thromboplastin Time 31.3 Seconds (21.0-31.0); Prothrombin Time 12.6 Seconds (9.0-12.0)
[2021-11-02] MEDS ORDERED: GADOBUTROL 65ML VIAL IV ONE (22:28)
[2021-11-02] MEDS: HEPARIN SODIUM/DEXTROSE 25,000 UNITS/500 ML BAG IV SCH (22:47)
[2021-11-02] MEDS ORDERED: ACETAMINOPHEN 500 MG TAB PO PRN (23:03)
[2021-11-03] MEDS: LORazepam 1 MG TAB PO PRN ×3 (03:31→18:17)
[2021-11-03 06:42] LABS: Partial Thromboplastin Ratio 1.6; Partial Thromboplastin Time 44.1 Seconds (21.0-31.0)
[2021-11-03 06:43] LABS: BUN Creatinine Ratio 16.9 (10-20); Calcium 9.5 mg/dl (8.5-10.1); Creatinine Clr Calc Pharmacy 185.3 ml/min; Est GFR (African American) 138.9 ml/min; Est GFR (Non-African American) 119.9 ml/min; Potassium 4.9 mmol/L (3.5-5.1)
[2021-11-03 06:49] LABS: Hematocrit (blood only) 40.2 % (40.1-51.0); Hemoglobin 12.4 g/dl (14.0-18.0); Mean Corpuscular Hemoglobin 31.6 pg (25.0-34.0); Mean Corpuscular Hgb Conc 30.8 g/dL (32.0-36.0); Mean Corpuscular Volume 102.6 fL (80.0-100.0); Mean Platelet Volume 13.9 fL (9.4-12.4); Platelet Count 236 K/uL (130-400); RDW Coefficient of Variation 14.6 % (11.5-14.5); RDW Standard Deviation 54.8 fL (36.4-46.3); Red Blood Count 3.92 M/uL (4.63-6.08); White Blood Count 11.67 K/ul (4.8-10.8)
--- NOTE | 2021-11-03 07:08 | Magnetic Resonance Report ---
LUMBAR SPINE MRI WITH AND WITHOUT CONTRAST HISTORY: back pain, fevers, eval discitis/abscess TECHNIQUE: Multiplanar multisequence MRI of the lumbar spine was performed both before and after the intravenous administration of contrast. COMPARISON: None. FINDINGS: For the purpose of the report the L5-S1 disc space will be located on axial image 26 of 28. There is mild motion artifact. Mild disc space narrowing at L2-L3 and L5-S1. The remaining disc space s are preserved. No fracture or subluxation. The conus terminates at the L1-L2 disc space level. Mild subcutaneous edema within the lumbar region. Paravertebral soft tissues are unremarkable. Mild facet degenerative changes within the lower lumbar spine. Diffuse hypointense marrow signal. No abnormal e nhancement. No erosive changes to suggest a discitis/osteomyelitis. There is a 1 cm cyst within the l ower pole of the left kidney. No epidural or paraspinal fluid collections. L1-L2: No significant central canal or neural foraminal narrowing. L2-L3: No significant central canal or neural foraminal narrowing. L3-L4: No significant central canal or neural foraminal narrowing. L4-L5: No significant central canal or neural foraminal narrowing. L5-S1: Small broad-based posterior disc bulge with a 4 mm left paracentral disc protrusion. However, no significant central canal narrowing. There is mild bilateral neural foraminal narrowing due to the disc bulge and facet hypertrophy. IMPRESSION: 1. No evidence for discitis/osteomyelitis. 2. No fracture or subluxation. 3. Diffuse hypointense marrow signal seen throughout the visualized osseous structures. This could be age-related or represent red marrow conversion. Correlation with laboratory studies recommended to a ssess for underlying anemia. 4. Small broad-based posterior disc bulge with a 4 mm left paracentral disc protrusion at L5-S1. ACT 112: Negative or not required by law. Electronically signed by: Jhonny Meza M.D. 11/03/2021 7:06 AM
[2021-11-03] MEDS: BUPRENORPHINE/NALOXONE 8/2 MG TAB SL SCH ×2 (08:51→21:00)
[2021-11-03] MEDS: chlordiazePOXIDE HCl 5 MG CAP PO SCH ×2 (08:51→21:00)
[2021-11-03] MEDS: CEROVITE ADV FORMULA TAB PO SCH (08:54)
[2021-11-03] MEDS: PANTOprazole 40 MG TAB PO SCH (08:54)
[2021-11-03] MEDS: GABAPENTIN 300 MG CAP PO SCH ×3 (08:54→21:11)
[2021-11-03] MEDS: CHOLECALCIFEROL 5,000 UNITS 125 MCG TAB PO SCH (08:54)
[2021-11-03] MEDS: DOXYCYCLINE HYCLATE 100 MG CAP PO SCH ×2 (08:54→21:00)
[2021-11-03] MEDS: FOLIC ACID 1 MG TAB PO SCH (08:54)
[2021-11-03] MEDS: ADVANCED PROBIOTIC 1250 MG CAPSULE PO SCH (08:55)
[2021-11-03] MEDS: NICOTINE 21 MG/24 HR TDSY TD SCH (08:55)
[2021-11-03] MEDS: THIAMINE HCL 100 MG TAB PO SCH ×2 (09:20→21:13)
[2021-11-03] MEDS ORDERED: OPTIRAY 300 100mL IV ONE (10:41)
--- NOTE | 2021-11-03 11:13 | CT Scan Report ---
CT SCAN OF THE ABDOMEN AND PELVIS WITH IV CONTRAST CLINICAL HISTORY: Fever. Left lower quadrant abdominal pain. COMPARISON STUDY: Abdominal CT dated 10/14/2021. TECHNIQUE: Following the IV administration of 94 cc of Optiray 300, CT scan of the abdomen and pelvi s is performed from the lung bases to the proximal femora. Images are reviewed in the axial, sagittal , and coronal planes. IV contrast was administered without complication. A dose lowering technique wa s utilized adhering to the principles of ALARA. The examination is modestly degraded by motion artifa ct. CT DOSE: 1224.98 mGy.cm FINDINGS: Lung bases: The heart is enlarged and without pericardial effusion. There are trace pleural effusions with dependent atelectasis. A tiny hiatal hernia is noted. Liver: The contrast-enhanced liver is enlarged, measuring 28 cm in length. The liver demonstrates dif fusely diminished attenuation indicating steatosis. There is no intrahepatic biliary ductal dilatatio n. The hepatic veins and portal veins are patent. Gallbladder: Unremarkable. Spleen: The spleen is enlarged measuring 16 cm in length. Pancreas: Unremarkable. Adrenal glands: Unremarkable. Kidneys: The contrast enhanced kidneys are normal in size and without hydronephrosis. The kidneys enh ance symmetrically. Scattered renal cysts measure up to 3.2 cm. Additional subcentimeter cortical hyp odensities also likely represent cysts but are too small for definitive characterization. Abdominal vasculature: The abdominal aorta is normal in course and caliber noting scattered foci of a therosclerotic calcification. Bowel: There is moderate colonic fecal retention. There is malrotation of the bowel. The duodenum kelly ls across midline. The colon is located in the left abdomen and the small bowel loops are located on the right. No obstruction Is seen. The appendix is well-visualized and normal. Peritoneum: There is no intraperitoneal free air or abdominal ascites. There is a fat-containing umbi lical hernia. Lymphadenopathy: Prominent mesenteric lymph nodes in the right lower quadrant are nonspecific and may be reactive. These have increased from 10/14/2021. These measure up to 7 mm in short axis. Pelvic viscera: There is median lobe hypertrophy of the prostate gland. The bladder wall is thickened and trabeculated suggesting chronic outlet obstruction. The bladder is filled with excreted IV contr ast. Skeletal structures: No lytic or blastic lesions are seen. IMPRESSION: 1. Prominent mesenteric lymph nodes in the right lower quadrant are nonspecific and may be reactive. These have increased from 10/14/2021. Clinical correlation will be required. 2. 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 No obstruction is seen. 3. Moderate fecal retention is noted in the colon. 4. Marked hepatomegaly and severe steatosis. 5. Splenomegaly. 6. Cardiomegaly and trace pleural effusions. 7. Additional findings as above. ACT 112: Negative or not required by law. Electronically signed by: Nick Iverson M.D. 11/03/2021 11:11 AM
--- NOTE | 2021-11-03 11:14 | Ultrasound Report ---
ULTRASOUND BILATERAL LOWER EXTREMITY VENOUS CLINICAL HISTORY: Pulmonary embolus. COMPARISON STUDY: No priors TECHNIQUE: Real-time, grayscale, and color Doppler sonography of the deep veins of the right and left lower extremity was performed from the inguinal crease to the calf. Compression and augmentation wer e utilized. FINDINGS: There is no sonographic evidence of deep venous thrombosis identified in the right or left lower extremity. The common femoral, superficial femoral, and popliteal veins are patent and normally compressible bilaterally. The greater saphenous vein and the profunda femoris vein at the junction w ith the common femoral vein are clear in both legs. The visualized calf veins are patent bilaterally. IMPRESSION: There is no sonographic evidence of deep venous thrombosis identified in the right or lef t lower extremity. ACT 112: Negative or not required by law. Electronically signed by: Nick Iverson M.D. 11/03/2021 11:13 AM
[2021-11-03] MEDS: levoFLOXacin 750 MG TAB PO SCH (11:49)
[2021-11-03 13:28] LABS: Partial Thromboplastin Ratio 1.7
[2021-11-03] MEDS: HEPARIN SODIUM/DEXTROSE 25,000 UNITS/500 ML BAG IV SCH (13:30)
[2021-11-03 13:34] LABS: Partial Thromboplastin Time 47.1 Seconds (21.0-31.0)
--- NOTE | 2021-11-03 19:37 | Hospitalist Progress Note ---
Date of Service November 03, 2021 Assessment & Plan (1) Pulmonary embolus: Plan: as part of w/u for ongoing fevers I obtained a d-dimer which was markedly elevated. CTA chest with a single pulmonary embolus seen. dopplers of legs are negative. no h/o GI bleed or esophageal varices. remains on heparin IV cautiously. should be a candidate for a DOAC. watch CBC, etc for a day or two on heparin to ensure no bleeding, then change to Eliquis or similar. would Rx for 3 months - would consider this provoked given bed-bound status for several weeks, etc. (2) Fever: Plan: to date has had b/l pneumonia - adequately treated - along with RLE cellulitis 2nd MSSA. he does have a positive lyme screen and remains on doxy while awaiting Western Blot. Finishing a course of levaquin for pneumonia (day 7 of such). multiple blood cultures negative during this admission. anaplasmosis smear negative. anaplasmosis DNA send/pending. multiple COVID tests negative this admission. c diff negative. l-spine MRI negative for discitis/epidural abscess. dopplers legs negative for DVT. ongoing fevers - pulmonary embolus? etoh withdrawal? (during previous hospital stays he has had similar low-grade fever with his withdrawal) plan - * repeat blood cultures pending * await Lyme Western blot * ordered CT abd/pelvis given fluctuating LLQ pain/groin pain * if blood cultures are positive for gram + pathogen would need echo - r/o SBE (3) Elevated sed rate: Plan: severe; >100 etiology? see #2 above (4) Alcohol withdrawal: Plan: during past hospital stays he has had very prolonged etoh withdrawal during 1 stay it was well over 14 days in duration still possible he is experiencing some symptoms (tremors, etc) remains on etoh AWSS protocol ativan prn finishing a librium taper - currently on 5mg TID (5) Pneumonia: Plan: b/l. Aspiration vs Community-acquired. CT chest with b/l infiltrates c/w pneumonia. Continues with low-grade fevers -- see above. Initially on Ceftriaxone and Azithromycin for a few days and then converted to Unasyn. Patient continued with low-grade fevers and thus Unasyn changed to Levaquin on 10/28/21 for better gram negative coverage; day #7 of such. Multiple sets of blood cultures negative. Biofire (including COVID) 10/28/21 negative. Continue pulmonary toilet. STOP levaquin after today's dose (of note - doxycycline is to cover Lyme while awaiting Western Blot, and to cover Anaplasmosis while awaiting DNA test). (6) Acute respiratory failure: Plan: Intubated 10/16/21. Extubated to BIPAP 10/17/21. Acute resp failure 2nd to aspiration pneumonia. O2 has been weaned off. CXRs have improved. O2 sats low 90s but acceptable. (7) Acute metabolic encephalopathy: Plan: Multiple possible etiologies - metabolic (pneumonia, recent RLE cellulitis, nutritional deficiencies, etc) vs toxic (benzodiazepines) vs combination vs other. IMPROVED. Cont Librium taper - now at 5mg TID; wean to 5mg BID x 2 days, then 5mg daily x 2 days, then stop. s/p thiamine 500mg PO TID x 3 day; now on 200mg BID. Of note - most recent TSH, B12, ammonia levels wnl. VBG without hypercarbia. (8) Cellulitis of right leg: Plan: 2nd MSSA. Received Unasyn then rocephin. Cellulitis resolved. All blood cultures negative. (9) Alcohol use disorder: Plan: Initially had intoxication at admission, then developed withdrawal. Treated with phenobarbital then tapering gabapentin and librium. Cont librium taper -- see above. Cont gabapentin for suspected neuropathy of both feet - 300mg TID. Continue thiamine, multivitamin, folic acid Continue seizure precautions (10) Electrolyte abnormality: Plan: Most recent K/Mag/Phos/Ca all acceptable. (11) Hepatitis C: Plan: Viral load around 7000 AST has climbed some over the last few days - checked CPK and was wnl Needs ID/GI f/u post-discharge (12) Opioid use disorder: Plan: Continue Suboxone twice daily (13) HTN (hypertension), benign: Plan: BPs were low-normal on 20mg lisinopril. reduced dose back to 10mg/day. still low even on 10mg - holding lisinopril moving forward. 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 follow western blot. Cont gabapentin TID L-spine MRI with L5-S1 disc herniation which could be contributing to left foot numbness. Cont PT/OT will need rehab post-discharge (15) Obesity (BMI 30-39.9): Plan: BMI 34 (16) Malnutrition due to starvation: Plan: MVI/thiamine/folic acid WIll give LR x 2 liters overnight for low-normal BPs and looks mildly volume contracted on exam today (17) Tobacco dependence: Plan: res counselor to quit cont nicoderm patch (18) DVT prophylaxis: Plan: heparin drip (19) Neuropathy: Plan: Likely 2nd to etoh abuse. Can't rule out a nutritional deficiency. Can't rule out other factors. MRI l-spine with L5-S1 herniated disc on left. Gabapentin 300mg TID. Cont Thiamine supplementation. Lyme screen is equivocal - see below - cover with doxy. This is the patient's main complaint every day, and continues to complain of b/l leg weakness (although on exam strength is intact). Given fevers, elevated sed rate, and these neuro complaints will ask neuro to see to ensure nothing else needs worked up. (20) Vitamin D deficiency: Plan: 10/22/21 level undetectable currently on vit D 5000 IU daily will need level repeat in 3 months (21) Positive Lyme disease serology: Plan: to be safe remains on doxy 100mg BID while awaiting western blot await anaplasmosis DNA (smear negative for inclusions) (22) Diarrhea: Plan: NEGATIVE c.diff cont lactinex at minimum has abx-associated diarrhea Plan dipso - needs rehab unsafe to return home -- too weak I updated pt's roommate (contact listed in chart) 10/31/21 - questions answered pt's mother - Tiffanie Hodge [phone] - left message for her this evening 11/03 Admission and Anticipated Discharge Date Admission Date: October 14, 2021 Subjective pt's main complaint is that of ongoing b/l foot numbness - mainly toes, R>L also c/o LLQ abd pain - only with coughing eating fair tele - sinus tach overnight no vomiting no nausea no c/o back pain today still very weak Review of Systems Review of Systems: gen - no chills cv - no cp, no orthopnea pulm - minimal cough; no dyspnea GI - no central pain, just the LLQ discomfort w/ coughing - voiding fine Physical Exam Physical Exam: gen - NAD, comfortable, a little groggy but follows commands & gives full history mouth - MMM neck - no JVD heart - RR, tachy, s1 s2, no murmur lungs - b/l basilar rales (mild, fine), no increased work of breathing abd - soft, ND, BS+, NT; no inguinal hernia on left with valsalva maneuver ext - trace edema b/l, pulses 2+ b/l skin - numerous erythematous lesions b/l legs much worse on the right; no cellul itis of RLE however neuro - strength 5/5 b/l hip flexion, b/l knee extension, and dorsiflexion/plantarflexion of both feet; mild tremors still present; patellar reflexes 2+ b/l Results & Data Results & Data ([facility]) Vital Signs (Past 12 Hours) Vital Signs Temp Pulse Pulse Pulse Resp BP Pulse Ox 11/03/21 19:32 37.1 C 109 H 20 134/80 92 11/03/21 14:17 109 H 11/03/21 18:14 37.7 C H 110 H 16 137/77 91 11/03/21 08:00 11/03/21 16:00 37.0 C 112 H 22 122/81 91 11/03/21 12:20 117 H 15 126/78 90 11/03/21 09:15 37.4 C 117 H 22 132/63 92 11/03/21 08:14 114 H 18 139/72 92 O2 Del Method 11/03/21 19:32 Room Air 11/03/21 14:17 11/03/21 18:14 Room Air 11/03/21 08:00 Room Air 11/03/21 16:00 Room Air 11/03/21 12:20 Room Air 11/03/21 09:15 Room Air 11/03/21 08:14 Room Air Laboratory Results Laboratory Results - last 24 hr 11/02/21 11/02/21 11/03/21 21:39 21:39 05:33 WBC 11.14 H RBC 3.59 L Hgb 11.3 L Hct 36.6 L MCV 101.9 H MCH 31.5 MCHC 30.9 L RDW Std Deviation 55.1 H RDW Coeff of Desiree 14.6 H Plt Count 232 MPV 13.3 H Immature Gran % (Auto) 1.1 Neut % (Auto) 58.8 Lymph % (Auto) 18.7 Miner % (Auto) 10.9 Eos % (Auto) 9.5 Baso % (Auto) 1.0 Neut # (Auto) 6.56 H Lymph # (Auto) 2.08 Miner # (Auto) 1.21 H Eos # (Auto) 1.06 H Baso # (Auto) 0.11 Immature Gran # (Auto) 0.12 H PT 12.6 H INR 1.2 H APTT 31.3 H 44.1 H PTT Ratio 1.1 1.6 Sodium Potassium Chloride Carbon Dioxide Anion Gap BUN Creatinine Est Cr Clr Drug Dosing Est GFR ( Amer) Est GFR (Non-Af Amer) BUN/Creatinine Ratio Glucose Calcium A. phagocytophilum DNA 11/03/21 11/03/21 11/03/21 05:33 05:33 05:33 WBC 11.67 H RBC 3.92 L Hgb 12.4 L Hct 40.2 MCV 102.6 H MCH 31.6 MCHC 30.8 L RDW Std Deviation 54.8 H RDW Coeff of Desiree 14.6 H Plt Count 236 MPV 13.9 H Immature Gran % (Auto) Neut % (Auto) Lymph % (Auto) Miner % (Auto) Eos % (Auto) Baso % (Auto) Neut # (Auto) Lymph # (Auto) Miner # (Auto) Eos # (Auto) Baso # (Auto) Immature Gran # (Auto) PT INR APTT PTT Ratio Sodium 132 L Potassium 4.9 Chloride 100 Carbon Dioxide 25 Anion Gap 7 BUN 12 Creatinine 0.71 Est Cr Clr Drug Dosing 185.3 Est GFR ( Amer) 138.9 Est GFR (Non-Af Amer) 119.9 BUN/Creatinine Ratio 16.9 Glucose 89 Calcium 9.5 A. phagocytophilum DNA Pending 11/03/21 12:48 WBC RBC Hgb Hct MCV MCH MCHC RDW Std Deviation RDW Coeff of Desiree Plt Count MPV Immature Gran % (Auto) Neut % (Auto) Lymph % (Auto) Miner % (Auto) Eos % (Auto) Baso % (Auto) Neut # (Auto) Lymph # (Auto) Miner # (Auto) Eos # (Auto) Baso # (Auto) Immature Gran # (Auto) PT INR APTT 47.1 H* PTT Ratio 1.7 Sodium Potassium Chloride Carbon Dioxide Anion Gap BUN Creatinine Est Cr Clr Drug Dosing Est GFR ( Amer) Est GFR (Non-Af Amer) BUN/Creatinine Ratio Glucose Calcium A. phagocytophilum DNA Diagnostic Findings Venous Doppler Study 11/03/21 00:00 ULTRASOUND BILATERAL LOWER EXTREMITY VENOUS CLINICAL HISTORY: Pulmonary embolus. COMPARISON STUDY: No priors TECHNIQUE: Real-time, grayscale, and color Doppler sonography of the deep veins of the right and left lower extremity was performed from the inguinal crease to the calf. Compression and augmentation were utilized. FINDINGS: There is no sonographic evidence of deep venous thrombosis identified in the right or left lower extremity. The common femoral, superficial femoral, and popliteal veins are patent and normally compressible bilaterally. The greater saphenous vein and the profunda femoris vein at the junction with the common femoral vein are clear in both legs. The visualized calf veins are patent bilaterally. IMPRESSION: There is no sonographic evidence of deep venous thrombosis identified in the right or left lower extremity. ACT 112: Negative or not required by law. Electronically signed by: Nick Iverson M.D. 11/03/2021 11:13 AM Abdomen/Pelvis CT 11/03/21 08:37 CT SCAN OF THE ABDOMEN AND PELVIS WITH IV CONTRAST CLINICAL HISTORY: Fever. Left lower quadrant abdominal pain. COMPARISON STUDY: Abdominal CT dated 10/14/2021. TECHNIQUE: Following the IV administration of 94 cc of Optiray 300, CT scan of the abdomen and pelvis is performed from the lung bases to the proximal femora. Images are reviewed in the axial, sagittal, and coronal planes. IV contrast was administered without complication. A dose lowering technique was utilized adhering to the principles of ALARA. The examination is modestly degraded by motion artifact. CT DOSE: 1224.98 mGy.cm FINDINGS: Lung bases: The heart is enlarged and without pericardial effusion. There are trace pleural effusions with dependent atelectasis. A tiny hiatal hernia is noted. Liver: The contrast-enhanced liver is enlarged, measuring 28 cm in length. The liver demonstrates diffusely diminished attenuation indicating steatosis. There is no intrahepatic biliary ductal dilatation. The hepatic veins and portal veins are patent. Gallbladder: Unremarkable. Spleen: The spleen is enlarged measuring 16 cm in length. Pancreas: Unremarkable. Adrenal glands: Unremarkable. Kidneys: The contrast enhanced kidneys are normal in size and without hydronep hrosis. The kidneys enhance symmetrically. Scattered renal cysts measure up to 3.2 cm. Additional subcentimeter cortical hypodensities also likely represent cysts but are too small for definitive characterization. Abdominal vasculature: The abdominal aorta is normal in course and caliber noting scattered foci of atherosclerotic calcification. Bowel: There is moderate colonic fecal retention. There is malrotation of the bowel. The duodenum fills across midline. The colon is located in the left abdomen and the small bowel loops are located on the right. No obstruction Is seen. The appendix is well-visualized and normal. Peritoneum: There is no intraperitoneal free air or abdominal ascites. There is a fat-containing umbilical hernia. Lymphadenopathy: Prominent mesenteric lymph nodes in the right lower quadrant are nonspecific and may be reactive. These have increased from 10/14/2021. These measure up to 7 mm in short axis. Pelvic viscera: There is median lobe hypertrophy of the prostate gland. The bladder wall is thickened and trabeculated suggesting chronic outlet obstruction. The bladder is filled with excreted IV contrast. Skeletal structures: No lytic or blastic lesions are seen. IMPRESSION: 1. Prominent mesenteric lymph nodes in the right lower quadrant are nonspecific and may be reactive. These have increased from 10/14/2021. Clinical correlation will be required. 2. 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 No obstruction is seen. 3. Moderate fecal retention is noted in the colon. 4. Marked hepatomegaly and severe steatosis. 5. Splenomegaly. 6. Cardiomegaly and trace pleural effusions. 7. Additional findings as above. ACT 112: Negative or not required by law. Electronically signed by: Nick Iverson M.D. 11/03/2021 11:11 AM PG Care Time/CCT Total # of Minutes Spent Total Time Spent with Patient: Total time spent is greater than 50% in coordination of care (as documented) at patient's floor/unit and/or counseling patient: Coding Level of Care Code 98968 Subseq Hosp Care Lvl 3 Diagnoses Pulmonary embolus I26.99 Fever R50.9 Elevated sed rate R70.0 Alcohol withdrawal F10.239 Complication of substance-induced condition: with unspecified complication Pneumonia J18.9 Acute respiratory failure J96.00 Acute metabolic encephalopathy G93.41 Cellulitis of right leg L03.115 Alcohol use disorder Electrolyte abnormality E87.8 Hepatitis C B19.20 Opioid use disorder F11.90 HTN (hypertension), benign I10 Physical deconditioning R53.81 Obesity (BMI 30-39.9) E66.9 Malnutrition due to starvation E46; T73.0XXS Tobacco dependence F17.200 DVT prophylaxis Z29.9 Neuropathy G62.9 Vitamin D deficiency E55.9 Positive Lyme disease serology R76.8 Diarrhea R19.7 (1) Alcohol withdrawal Complication of substance-induced condition: with unspecified complication Qualified Code(s): F10.239 - Alcohol dependence with withdrawal, unspecified
[2021-11-04] MEDS: LORazepam 1 MG TAB PO PRN ×3 (02:59→21:24)
[2021-11-04] MEDS: HEPARIN SODIUM/DEXTROSE 25,000 UNITS/500 ML BAG IV SCH ×3 (04:14→18:08)
[2021-11-04 07:38] LABS: Basophils # (auto) 0.11 K/uL (0-0.2); Hematocrit (blood only) 37.6 % (40.1-51.0); Hemoglobin 11.8 g/dl (14.0-18.0); Immature Granulocytes # (auto) 0.14 K/uL (0.00-0.02); Immature Granulocytes % (auto) 1.3 %; Lymphocytes # (auto) 2.57 K/uL (1.2-3.4); Lymphocytes % (auto) 24.1 %; Mean Corpuscular Hemoglobin 31.1 pg (25.0-34.0); Mean Corpuscular Hgb Conc 31.4 g/dL (32.0-36.0); Mean Corpuscular Volume 98.9 fL (80.0-100.0); Mean Platelet Volume 13.6 fL (9.4-12.4); Monocytes # (auto) 1.18 K/uL (0.24-0.82); Neutrophils # (auto) 5.08 K/uL (1.4-6.5); Neutrophils % (auto) 47.6 %; Platelet Count 230 K/uL (130-400); RDW Coefficient of Variation 14.5 % (11.5-14.5); RDW Standard Deviation 52.9 fL (36.4-46.3); White Blood Count 10.68 K/ul (4.8-10.8)
[2021-11-04 07:43] LABS: Partial Thromboplastin Ratio 1.6; Partial Thromboplastin Time 42.7 Seconds (21.0-31.0)
[2021-11-04] MEDS: NICOTINE 21 MG/24 HR TDSY TD SCH (08:13)
[2021-11-04] MEDS: BUPRENORPHINE/NALOXONE 8/2 MG TAB SL SCH ×2 (08:13→21:22)
[2021-11-04] MEDS: chlordiazePOXIDE HCl 5 MG CAP PO SCH ×2 (08:13→21:22)
[2021-11-04] MEDS: GABAPENTIN 300 MG CAP PO SCH ×3 (08:14→21:23)
[2021-11-04] MEDS: CHOLECALCIFEROL 5,000 UNITS 125 MCG TAB PO SCH (08:15)
[2021-11-04] MEDS: PANTOprazole 40 MG TAB PO SCH (08:15)
[2021-11-04] MEDS: DOXYCYCLINE HYCLATE 100 MG CAP PO SCH ×2 (08:15→21:22)
[2021-11-04] MEDS: THIAMINE HCL 100 MG TAB PO SCH ×2 (08:15→21:23)
[2021-11-04] MEDS: CEROVITE ADV FORMULA TAB PO SCH (08:16)
[2021-11-04] MEDS: FOLIC ACID 1 MG TAB PO SCH (08:16)
[2021-11-04] MEDS: ADVANCED PROBIOTIC 1250 MG CAPSULE PO SCH (08:16)
[2021-11-04 08:21] LABS: BUN Creatinine Ratio 14.7 (10-20); Calcium 9.2 mg/dl (8.5-10.1); Est GFR (African American) 141.4 ml/min; Potassium 4.3 mmol/L (3.5-5.1)
--- NOTE | 2021-11-04 12:48 | Neurology Consultation ---
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 The most likely underlying etiology is alcoholism. There is no history or or clinical exam findings to suggest inf lammatory/demyelinating neuropathies. Malnutrition, hepatitis C and Lyme disease might cause or contribute polyneuropathy. There is no other typical symptomatology to indicate other less common etiologies. Plan: For symptomatic treatment, I recommend increasing gabapentin dosage to 600 mg 3 times a day. If the patient stays sober with persistent symptoms, further neuropathy work- up including EMG and nerve conduction study will be warranted. Please schedule a follow-up at neurology clinic for neuropathy work-up and management. (2) Positive Lyme disease serology: Impression: There is no obvious clinical or historical evidence to suggest Lyme disease. Plan: I agree with WB testing for Lyme. (3) Malnutrition due to starvation: (4) Acute metabolic encephalopathy: Impression: Improved (5) Alcoholic hepatitis: (6) Opioid use disorder: (7) Alcohol use disorder: (8) Metabolic encephalopathy: (9) Delirium tremens: Impression: Improved Plan As above. Thank you for the consultation. History of Present Illness Reason for Consultation: Peripheral Polyneuropathy Requesting Physician: Tashi Apple Attending Physician: Tashi Apple History of Present Illness The patient is a 36-year-old gentleman, who was admitted to hospital 3 weeks ago, with cellulitis, and sepsis. He has been heavy alcohol drinker for several years, and developed severe alcohol withdrawal syndrome, which has been treated successfully. He has similar admissions in the past with prolonged withdrawal syndrome. His hospital stay has been complicated with electrolyte abnormalities, pulmonary embolism, infections, and liver dysfunction. He has been recovering well without any alcohol withdrawal seizures. Approximately 2 weeks ago, the patient began noticing painful paresthesias in distal feet bilaterally. He describes symptoms as [id number], which can be aggravated with touch and pressure. He was started on gabapentin with partial symptomatic improvement. He denies having similar symptoms in the past, however, he was dr inking alcohol heavily then, with additional years of opioids which might obscure related symptoms. He denies dry eyes, dry mouth, insect bites including ticks, exposure to heavy metals, and family history of neuropathies. Lyme titer was borderline elevated, and Western Blot was ordered with pending result. He is currently comfortable, and reports intermittent, annoying paresthesia, involving toes primarily. He denies similar symptoms in proximal lower extremities or upper extremities. He has no bowel or bladder incontinence or sensory leveling. Lumbar spine MRI was done recently, which did not show any obvious pathology including radicular inflammation. He can ambulate with some unsteadiness. He has no obvious weakness in lower extremities however, due to deconditioning, he feels slightly weak in his legs. I have reviewed the patient's chart and visualized imaging studies personally. I have discussed the case with the patient and answer his questions in detail. Allergies Allergy/AdvReac Type Severity Reaction Status Date / Time No Known Allergies Allergy Unverified 10/14/21 01:50 Home Medications Medication Instructions Recorded Confirmed Type buprenorphine 8 mg-naloxone 2 mg 1 tab sublingual BID 09/04/20 10/14/21 History sublingual tablet lisinopril 10 mg tablet 10 mg PO DAILY 10/14/21 10/14/21 History multivitamin 1 tab PO DAILY 10/14/21 10/14/21 History Patient History Medical History Alcohol use disorder Alcohol withdrawal seizure Bilateral pneumonia HTN (hypertension), benign Obesity (BMI 30-39.9) Opioid use disorder Surgical History No pertinent past surgical history Family History Other No pertinent family history Social History Smoking Status: Current every day smoker Tobacco Type: Cigarettes Cigarettes Per Day: 15; Second Hand Exposure: Yes; Hx Alcohol Use: Yes Alcohol type: hard liquor and other Hx Substance Use: No Preferred Language: Korean Communication Ability: Unable Resource 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 HENT: Normal exam with inspection. CV: Hearth rhtyhm is regular. Neck: Supple, no carotid bruits. Lungs: Non-labored and comfortable breathing. Abdomen: Soft, non-tender, non-distended. Skin: No rash or ecchymosis but distal leg discoloration and knee laceration. Extremities: No edema or cyanosis NEUROLOGICAL EXAMINATION: Mental Status: Alert and oriented to place, person and time. Cranial Nerves: II-XII are intact. No nystagmus. Funduscopy: Normal looking optic discs. Motor: 5/5 in upper extremities without asymmetry. 5-/5 in proximal lower extremity muscles and 4+ to 5-/5 in distal lower extremity muscles with some limited effort due to pain. Tone: Normal without spasticity or rigidity. Sensory: Decreased sensation to all sensory modalities up to ankles symmetrically. DTR's: 2+ in upper extremities, 1+ in knees and absent in ankles symmetrically. Coordination: No dysmetria with FTN and HTS testing. Speech: Fluent. Comprehension is intact. Gait: Not assessed Musculoskeletal: Normal muscle bulk, no atrophy. Straight leg raising test is bilaterally negative. Results & Data ([facility]) Vital Signs (Past 12 Hours) Vital Signs Temp Pulse Pulse Pulse Resp BP Pulse Ox 11/04/21 12:03 36.9 C 111 H 20 101/72 93 11/04/21 08:00 115 H 11/04/21 08:15 37.5 C 116 H 18 128/88 91 11/04/21 05:05 36.6 C 110 H 20 141/91 H 93 O2 Del Method 11/04/21 12:03 Room Air 11/04/21 08:00 11/04/21 08:15 Room Air 11/04/21 05:05 Room Air Laboratory Results Laboratory Results - last 24 hr 11/03/21 11/04/21 11/04/21 12:48 06:33 06:33 WBC 10.68 RBC 3.80 L Hgb 11.8 L Hct 37.6 L MCV 98.9 MCH 31.1 MCHC 31.4 L RDW Std Deviation 52.9 H RDW Coeff of Desiree 14.5 Plt Count 230 MPV 13.6 H Immature Gran % (Auto) 1.3 Neut % (Auto) 47.6 Lymph % (Auto) 24.1 Calvert % (Auto) 11.0 Eos % (Auto) 15.0 Baso % (Auto) 1.0 Neut # (Auto) 5.08 Lymph # (Auto) 2.57 Calvert # (Auto) 1.18 H Eos # (Auto) 1.60 H Baso # (Auto) 0.11 Immature Gran # (Auto) 0.14 H APTT 47.1 H* 42.7 H PTT Ratio 1.7 1.6 Sodium Potassium Chloride Carbon Dioxide Anion Gap BUN Creatinine Est Cr Clr Drug Dosing Est GFR ( Amer) Est GFR (Non-Af Amer) BUN/Creatinine Ratio Glucose Calcium Urine Osmolality Ur Random Sodium 11/04/21 11/04/21 11/04/21 06:35 12:09 12:09 WBC RBC Hgb Hct MCV MCH MCHC RDW Std Deviation RDW Coeff of Desiree Plt Count MPV Immature Gran % (Auto) Neut % (Auto) Lymph % (Auto) Calvert % (Auto) Eos % (Auto) Baso % (Auto) Neut # (Auto) Lymph # (Auto) Calvert # (Auto) Eos # (Auto) Baso # (Auto) Immature Gran # (Auto) APTT PTT Ratio Sodium 132 L Potassium 4.3 Chloride 98 Carbon Dioxide 26 Anion Gap 8 BUN 10 Creatinine 0.68 Est Cr Clr Drug Dosing 193.0 Est GFR ( Amer) 141.4 Est GFR (Non-Af Amer) 122.0 BUN/Creatinine Ratio 14.7 Glucose 91 Calcium 9.2 Urine Osmolality Pending Ur Random Sodium 31 Diagnostic Findings Chest CTA 11/02/21 18:11 CHEST CTA for PULMONARY ARTERIES CT DOSE: 615.98 mGy.cm HISTORY: fever, hypoxia, elevated dimer; eval PE TECHNIQUE: Multiaxial CT images of the chest were performed following the intravenous administration of contrast to evaluate the pulmonary arteries. Maximal intensity projection images were also obtained. A dose lowering technique was utilized adhering to the principles of ALARA. COMPARISON STUDY: Chest CT 10/01/2020. FINDINGS: Normal caliber thoracic aorta with no evidence for dissection. The heart is mildly enlarged. No pericardial effusion. Small left and trace right pleural effusions. Best seen on image 137 there is a single filling defect seen within a segmental/subsegmental pulmonary artery of the right middle lobe consistent with a pulmonary embolus. A few the left lower lobe pulmonary segmental pulmonary arteries are nondiagnostic due to the respiratory motion artifact. No additional filling defect seen within the remaining pulmonary arteries. No evidence for right-sided heart strain. No fractures within the visualized osseous structures. Hepatic steatosis. Low lung volumes with mild elevation the right hemidiaphragm. The visualized spleen is unremarkable. Normal esophagus. The thyroid gland enhances normally. No mediastinal or hilar lymphadenopathy. Small amount of consolidation within the bilateral lower lobes posteriorly favors dependent change/atelectasis. No pneumothorax. Small amount of mucoid material within the trachea. Otherwise, the remaining central airways are patent. A few additional patchy groundglass and consolidative airspace opacities within within the left upper lobe and a few faint patchy groundglass airspace opacities within the right upper lobe are noted. This favors a mild multifocal pneumonia. IMPRESSION: 1. A single segmental/subsegmental pulmonary embolus within the right middle lobe. No evidence for right-sided heart strain. 2. Mild cardiomegaly. 3. Patchy bilateral upper lobe airspace opacities favor a multifocal pneumonia. 4. Small left and trace right pleural effusions. 5. Hepatic steatosis. ACT 112: Negative or not required by law. Electronically signed by: Jhonny Meza M.D. 11/02/2021 7:52 PM Lumbar Spine MRI 11/02/21 18:11 LUMBAR SPINE MRI WITH AND WITHOUT CONTRAST HISTORY: back pain, fevers, eval discitis/abscess TECHNIQUE: Multiplanar multisequence MRI of the lumbar spine was performed both before and after the intravenous administration of contrast. COMPARISON: None. FINDINGS: For the purpose of the report the L5-S1 disc space will be located on axial image 26 of 28. There is mild motion artifact. Mild disc space narrowing at L2-L3 and L5-S1. The remaining disc spaces are preserved. No fracture or subluxation. The conus terminates at the L1-L2 disc space level. Mild subcutaneous edema within the lumbar region. Paravertebral soft tissues are unremarkable. Mild facet degenerative changes within the lower lumbar spine. Diffuse hypointense marrow signal. No abnormal enhancement. No erosive changes to suggest a discitis/osteomyelitis. There is a 1 cm cyst within the lower pole of the left kidney. No epidural or paraspinal fluid collections. L1-L2: No significant central canal or neural foraminal narrowing. L2-L3: No significant central canal or neural foraminal narrowing. L3-L4: No significant central canal or neural foraminal narrowing. L4-L5: No significant central canal or neural foraminal narrowing. L5-S1: Small broad-based posterior disc bulge with a 4 mm left paracentral disc protrusion. However, no significant central canal narrowing. There is mild bilateral neural foraminal narrowing due to the disc bulge and facet hypertrophy. IMPRESSION: 1. No evidence for discitis/osteomyelitis. 2. No fracture or subluxation. 3. Diffuse hypointense marrow signal seen throughout the visualized osseous structures. This could be age-related or represent red marrow conversion. Correlation with laboratory studies recommended to assess for underlying anemia. 4. Small broad-based posterior disc bulge with a 4 mm left paracentral disc protrusion at L5-S1. ACT 112: Negative or not required by law. Electronically signed by: Jhonny Meza M.D. 11/03/2021 7:06 AM Venous Doppler Study 11/03/21 00:00 ULTRASOUND BILATERAL LOWER EXTREMITY VENOUS CLINICAL HISTORY: Pulmonary embolus. COMPARISON STUDY: No priors TECHNIQUE: Real-time, grayscale, and color Doppler sonography of the deep veins of the right and left lower extremity was performed from the inguinal crease to the calf. Compression and augmentation were utilized. FINDINGS: There is no sonographic evidence of deep venous thrombosis identified in the right or left lower extremity. The common femoral, superficial femoral, and popliteal veins are patent and normally compressible bilaterally. The greater saphenous vein and the profunda femoris vein at the junction with the common femoral vein are clear in both legs. The visualized calf veins are patent bilaterally. IMPRESSION: There is no sonographic evidence of deep venous thrombosis identified in the right or left lower extremity. ACT 112: Negative or not required by law. Electronically signed by: Nick Iverson M.D. 11/03/2021 11:13 AM Abdomen/Pelvis CT 11/03/21 08:37 CT SCAN OF THE ABDOMEN AND PELVIS WITH IV CONTRAST CLINICAL HISTORY: Fever. Left lower quadrant abdominal pain. COMPARISON STUDY: Abdominal CT dated 10/14/2021. TECHNIQUE: Following the IV administration of 94 cc of Optiray 300, CT scan of the abdomen and pelvis is performed from the lung bases to the proximal femora. Images are reviewed in the axial, sagittal, and coronal planes. IV contrast was administered without complication. A dose lowering technique was utilized adhering to the principles of ALARA. The examination is modestly degraded by motion artifact. CT DOSE: 1224.98 mGy.cm FINDINGS: Lung bases: The heart is enlarged and without pericardial effusion. There are trace pleural effusions with dependent atelectasis. A tiny hiatal hernia is noted. Liver: The contrast-enhanced liver is enlarged, measuring 28 cm in length. The liver demonstrates diffusely diminished attenuation indicating steatosis. There is no intrahepatic biliary ductal dilatation. The hepatic veins and portal veins are patent. Gallbladder: Unremarkable. Spleen: The spleen is enlarged measuring 16 cm in length. Pancreas: Unremarkable. Adrenal glands: Unremarkable. Kidneys: The contrast enhanced kidneys are normal in size and without hydronephrosis. The kidneys enhance symmetrically. Scattered renal cysts measure up to 3.2 cm. Additional subcentimeter cortical hypodensities also likely represent cysts but are too small for definitive characterization. Abdominal vasculature: The abdominal aorta is normal in course and caliber noting scattered foci of atherosclerotic calcification. Bowel: There is moderate colonic fecal retention. There is malrotation of the bowel. The duodenum fills across midline. The colon is located in the left abdomen and the small bowel loops are located on the right. No obstruction Is seen. The appendix is well-visualized and normal. Peritoneum: There is no intraperitoneal free air or abdominal ascites. There is a fat-containing umbilical hernia. Lymphadenopathy: Prominent mesenteric lymph nodes in the right lower quadrant are nonspecific and may be reactive. These have increased from 10/14/2021. These measure up to 7 mm in short axis. Pelvic viscera: There is median lobe hypertrophy of the prostate gland. The bladder wall is thickened and trabeculated suggesting chronic outlet obstruction. The bladder is filled with excreted IV contrast. Skeletal structures: No lytic or blastic lesions are seen. IMPRESSION: 1. Prominent mesenteric lymph nodes in the right lower quadrant are nonspecific and may be reactive. These have increased from 10/14/2021. Clinical correlation will be required. 2. 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 No obstruction is seen. 3. Moderate fecal retention is noted in the colon. 4. Marked hepatomegaly and severe steatosis. 5. Splenomegaly. 6. Cardiomegaly and trace pleural effusions. 7. Additional findings as above. ACT 112: Negative or not required by law. Electronically signed by: Nick Iverson M.D. 11/03/2021 11:11 AM
--- NOTE | 2021-11-04 12:54 | Hospitalist Progress Note ---
Date of Service November 04, 2021 Assessment & Plan (1) Pulmonary embolus: Plan: CTA chest with a single pulmonary embolus seen. dopplers of legs are negative. no h/o GI bleed or esophageal varices. remains on heparin IV cautiously. should be a candidate for a DOAC. watch CBC, etc for a day or two on heparin to ensure no bleeding, then change to Eliquis or similar. would Rx for 3 months - would consider this provoked given bed-bound status for several weeks, etc. (2) Fever: Plan: to date has had b/l pneumonia - adequately treated - along with RLE cellulitis 2nd MSSA. he does have a positive lyme screen and remains on doxy while awaiting Western Blot. completed a course of levaquin for pneumonia (day 7 of such). multiple blood cultures negative during this admission. anaplasmosis smear negative. anaplasmosis DNA send/pending. multiple COVID tests negative this admission. c diff negative. l-spine MRI negative for discitis/epidural abscess. dopplers legs negative for DVT. CT abd/pelvis given fluctuating LLQ pain/groin pain - nothing infectious seen. ongoing low grade fevers - pulmonary embolus? (but only had [address] - doubt this is the cause) etoh withdrawal? (during previous hospital stays he has had similar low-grade fever with his withdrawal) tick-borne infection? plan - * repeat blood cultures pending but remain negative * await Lyme Western blot; await Anaplasmosis DNA test * if blood cultures are positive for gram + pathogen would need echo - r/o SBE If tick-borne labs return negative and fevers continue then ID consult at that time. (3) Elevated sed rate: Plan: severe; >100 etiology? see #2 above (4) Alcohol withdrawal: Plan: during past hospital stays he has had very prolonged etoh withdrawal during 1 stay it was well over 14 days in duration still possible he is experiencing some symptoms (tremors, etc) remains on etoh AWSS protocol ativan prn finishing a librium taper - currently on 5mg BID (5) Pneumonia: Plan: b/l. Aspiration vs Community-acquired. CT chest with b/l infiltrates c/w pneumonia. Initially on Ceftriaxone and Azithromycin for a few days and then converted to Unasyn. Then Unasyn changed to Levaquin on 10/28/21 for better gram negative coverage; completed 7 days of levaquin. Multiple sets of blood cultures negative. Biofire (including COVID) 10/28/21 negative. He is clinically improved/resolved from pneumonia standpoint. O2 weaned off. Continue pulmonary toilet. low-grade fevers -- see above. of note - doxycycline is to cover Lyme while awaiting Western Blot, and to cover Anaplasmosis while awaiting DNA test. (6) Acute respiratory failure: Plan: Intubated 10/16/21. Extubated to BIPAP 10/17/21. Acute resp failure 2nd to aspiration pneumonia. O2 has been weaned off. CXRs have improved. O2 sats low 90s but acceptable. (7) Acute metabolic encephalopathy: Plan: Multiple possible etiologies - metabolic (pneumonia, recent RLE cellulitis, nutritional deficiencies, etoh withdrawal, etc) vs toxic (benzodiazepines) vs combination vs other. IMPROVED. Cont Librium taper - now at 5mg BID; continue BID on 11/05, then 5mg daily x 2 days, then stop. s/p thiamine 500mg PO TID x 3 day; now on 200mg BID. Of note - most recent TSH, B12, ammonia levels wnl. VBG without hypercarbia. (8) Cellulitis of right leg: Plan: 2nd MSSA. Received Unasyn then rocephin. Cellulitis resolved. All blood cultures negative. (9) Alcohol use disorder: Plan: Initially had intoxication at admission, then developed withdrawal. Treated with phenobarbital then tapering gabapentin and librium. Cont librium taper -- see above. Cont gabapentin for suspected neuropathy of both feet - 300mg TID. Continue thiamine, multivitamin, folic acid Continue seizure precautions (10) Electrolyte abnormality: Plan: Most recent K/Mag/Phos/Ca all acceptable. (11) Hepatitis C: Plan: Viral load around 7000 AST has climbed some over the last few days - checked CPK and was wnl Needs ID/GI f/u post-discharge (12) Opioid use disorder: Plan: Continue Suboxone twice daily (13) HTN (hypertension), benign: Plan: BPs were low-normal on 20mg lisinopril. reduced dose back to 10mg/day. still low even on 10mg - holding lisinopril moving forward. 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 follow western blot. Cont gabapentin TID L-spine MRI with L5-S1 disc herniation which could be contributing to left foot numbness. 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 Can't rule out a nutritional deficiency. Can't rule out other factors. MRI l-spine with L5-S1 herniated disc on left. Gabapentin 300mg TID. Cont Thiamine supplementation. Lyme screen is equivocal - see below - cover with doxy. This is the patient's main complaint every day, and continues to complain of b/l leg weakness (although on exam strength is intact). Given fevers, elevated sed rate, and these neuro complaints - I asked neuro to see to ensure nothing else needs worked up. Appreciate their consult - they feel neuropathy is likely 2nd to etoh. Advise outpatient EMGs and increase in gabapentin to 600mg TID. Will increase to 400mg TID first, then in a few days increase to 600mg TID. (20) Vitamin D deficiency: Plan: 10/22/21 level undetectable currently on vit D 5000 IU daily will need level repeat in 3 months (21) Positive Lyme disease serology: Plan: to be safe remains on doxy 100mg BID while awaiting western blot await anaplasmosis DNA (smear negative for inclusions) (22) Diarrhea: Plan: NEGATIVE c.diff cont lactinex diarrhea has improved (23) Hyponatremia: Plan: check urine osm and urine Na then re-eval BMP am appears euvolemic on exam Plan dipso - needs rehab unsafe to return home -- too weak I updated pt's roommate (contact listed in chart) 10/31/21 pt's mother - Tiffanie Hodge [phone] - left message for her 11/03 Admission and Anticipated Discharge Date Admission Date: October 14, 2021 Subjective sleeping upon arrival woke up more easily than previous visits he was able to recall and give details about his consult with neurology denies any new complaints tele - sinus tach Review of Systems Review of Systems: gen - no fevers today cv - no orthopnea pulm - no cough, no dyspnea GI - no abd pain, nausea, emesis Physical Exam Physical Exam: gen - NAD, comfortable mouth - MMM neck - no JVD heart - RR, tachy, s1 s2, no murmur lungs - minimal b/l basilar rales, CTA b/l otherwise abd - soft, ND, BS+, NT ext - trace edema b/l, pulses 2+ b/l skin - numerous erythematous lesions b/l legs (shins) much worse on the right; no cellulitis of RLE however neuro - strength 5/5 b/l hip flexion, b/l knee extension, and dorsiflexion/plantarflexion of both feet; mild tremors remain Results & Data Results & Data ([facility]) Vital Signs (Past 12 Hours) Vital Signs Temp Pulse Pulse Pulse Resp BP Pulse Ox 11/04/21 12:03 36.9 C 111 H 20 101/72 93 11/04/21 08:00 115 H 11/04/21 08:15 37.5 C 116 H 18 128/88 91 11/04/21 05:05 36.6 C 110 H 20 141/91 H 93 O2 Del Method 11/04/21 12:03 Room Air 11/04/21 08:00 11/04/21 08:15 Room Air 11/04/21 05:05 Room Air Laboratory Results Laboratory Results - last 24 hr 11/03/21 11/04/21 11/04/21 12:48 06:33 06:33 WBC 10.68 RBC 3.80 L Hgb 11.8 L Hct 37.6 L MCV 98.9 MCH 31.1 MCHC 31.4 L RDW Std Deviation 52.9 H RDW Coeff of Desiree 14.5 Plt Count 230 MPV 13.6 H Immature Gran % (Auto) 1.3 Neut % (Auto) 47.6 Lymph % (Auto) 24.1 [place] % (Auto) 11.0 Eos % (Auto) 15.0 Baso % (Auto) 1.0 Neut # (Auto) 5.08 Lymph # (Auto) 2.57 [place] # (Auto) 1.18 H Eos # (Auto) 1.60 H Baso # (Auto) 0.11 Immature Gran # (Auto) 0.14 H APTT 47.1 H* 42.7 H PTT Ratio 1.7 1.6 Sodium Potassium Chloride Carbon Dioxide Anion Gap BUN Creatinine Est Cr Clr Drug Dosing Est GFR ( Amer) Est GFR (Non-Af Amer) BUN/Creatinine Ratio Glucose Calcium Urine Osmolality Ur Random Sodium 11/04/21 11/04/21 11/04/21 06:35 12:09 12:09 WBC RBC Hgb Hct MCV MCH MCHC RDW Std Deviation RDW Coeff of Desiree Plt Count MPV Immature Gran % (Auto) Neut % (Auto) Lymph % (Auto) [place] % (Auto) Eos % (Auto) Baso % (Auto) Neut # (Auto) Lymph # (Auto) [place] # (Auto) Eos # (Auto) Baso # (Auto) Immature Gran # (Auto) APTT PTT Ratio Sodium 132 L Potassium 4.3 Chloride 98 Carbon Dioxide 26 Anion Gap 8 BUN 10 Creatinine 0.68 Est Cr Clr Drug Dosing 193.0 Est GFR ( Amer) 141.4 Est GFR (Non-Af Amer) 122.0 BUN/Creatinine Ratio 14.7 Glucose 91 Calcium 9.2 Urine Osmolality 307 L Ur Random Sodium 31 PG Care Time/CCT Total # of Minutes Spent Total Time Spent with Patient: Total time spent is greater than 50% in coordination of care (as documented) at patient's floor/unit and/or counseling patient: Coding Level of Care Code 75809 Subseq Hosp Care Lvl 3 Diagnoses Pulmonary embolus I26.99 Fever R50.9 Elevated sed rate R70.0 Alcohol withdrawal F10.239 Complication of substance-induced condition: with unspecified complication Pneumonia J18.9 Acute respiratory failure J96.00 Acute metabolic encephalopathy G93.41 Cellulitis of right leg L03.115 Alcohol use disorder Electrolyte abnormality E87.8 Hepatitis C B19.20 Opioid use disorder F11.90 HTN (hypertension), benign I10 Physical deconditioning R53.81 Obesity (BMI 30-39.9) E66.9 Malnutrition due to starvation E46; T73.0XXS Tobacco dependence F17.200 DVT prophylaxis Z29.9 Neuropathy G62.9 Vitamin D deficiency E55.9 Positive Lyme disease serology R76.8 Diarrhea R19.7 Hyponatremia E87.1 (1) Alcohol withdrawal Complication of substance-induced condition: with unspecified complication Qualified Code(s): F10.239 - Alcohol dependence with withdrawal, unspecified
[2021-11-04 14:47] LABS: Partial Thromboplastin Ratio 1.8
[2021-11-04 14:51] LABS: Partial Thromboplastin Time 48.4 Seconds (21.0-31.0)
[2021-11-04 22:14] LABS: Partial Thromboplastin Ratio 1.7
[2021-11-04] MEDS: SODIUM CHLORIDE 1 GM TABLET PO SCH (22:23)
[2021-11-04 22:37] LABS: Partial Thromboplastin Time 48.1 Seconds (21.0-31.0)
[2021-11-05 06:32] LABS: Hematocrit (blood only) 36.8 % (40.1-51.0); Hemoglobin 11.4 g/dl (14.0-18.0); Mean Corpuscular Hemoglobin 31.1 pg (25.0-34.0); Mean Corpuscular Volume 100.3 fL (80.0-100.0); RDW Coefficient of Variation 14.3 % (11.5-14.5); Red Blood Count 3.67 M/uL (4.63-6.08)
[2021-11-05 06:48] LABS: BUN Creatinine Ratio 14.3 (10-20); Calcium 9.2 mg/dl (8.5-10.1); Creatinine Clr Calc Pharmacy 208.4 ml/min; Est GFR (African American) 145.9 ml/min; Est GFR (Non-African American) 125.9 ml/min; Magnesium 1.7 mg/dl (1.7-2.4); Potassium 4.1 mmol/L (3.5-5.1)
[2021-11-05 07:01] LABS: Partial Thromboplastin Ratio 1.7
[2021-11-05 07:02] LABS: Partial Thromboplastin Time 47.8 Seconds (21.0-31.0)
[2021-11-05 07:25] LABS: Mean Platelet Volume 13.4 fL (9.4-12.4); Platelet Count 221 K/uL (130-400)
[2021-11-05] MEDS: HEPARIN SODIUM/DEXTROSE 25,000 UNITS/500 ML BAG IV SCH (07:46)
[2021-11-05] MEDS: LORazepam 1 MG TAB PO PRN ×2 (07:53→20:09)
[2021-11-05] MEDS: SODIUM CHLORIDE 1 GM TABLET PO SCH (08:56)
[2021-11-05] MEDS: GABAPENTIN 400 MG CAP PO SCH ×3 (08:56→20:11)
[2021-11-05] MEDS: THIAMINE HCL 100 MG TAB PO SCH ×2 (08:56→20:10)
[2021-11-05] MEDS: DOXYCYCLINE HYCLATE 100 MG CAP PO SCH ×2 (08:57→20:10)
[2021-11-05] MEDS: FOLIC ACID 1 MG TAB PO SCH (08:58)
[2021-11-05] MEDS: ADVANCED PROBIOTIC 1250 MG CAPSULE PO SCH (08:58)
[2021-11-05] MEDS: CEROVITE ADV FORMULA TAB PO SCH (08:58)
[2021-11-05] MEDS: CHOLECALCIFEROL 5,000 UNITS 125 MCG TAB PO SCH (08:58)
[2021-11-05] MEDS: NICOTINE 21 MG/24 HR TDSY TD SCH (08:59)
[2021-11-05] MEDS: PANTOprazole 40 MG TAB PO SCH (08:59)
[2021-11-05] MEDS: BUPRENORPHINE/NALOXONE 8/2 MG TAB SL SCH ×2 (09:02→20:10)
[2021-11-05] MEDS: chlordiazePOXIDE HCl 5 MG CAP PO SCH ×2 (09:03→20:09)
[2021-11-05] MEDS: APIXABAN 5 MG TABLET PO SCH ×2 (11:00→20:12)
--- NOTE | 2021-11-05 21:20 | Hospitalist Progress Note ---
Date of Service November 05, 2021 Assessment & Plan (1) Pulmonary embolus: Plan: CTA chest with a single pulmonary embolus seen. dopplers of legs are negative. no h/o GI bleed or esophageal varices. remains on heparin IV cautiously. H/H have been stable on heparin. d/c heparin today. transition to Eliquis 10mg BID x 7 days, then 5mg BID thereafter would Rx for 3 months given it is a solitary pulmonary embolus and this event would be considered provoked (bed-bound several weeks, etc) (2) Fever: Plan: RESOLVED x 48 hours * to date has had b/l pneumonia - adequately treated -- likely received 7-10 days at minimum * RLE cellulitis 2nd MSSA adequately treated * he does have a positive lyme screen and remains on doxy while awaiting Western Blot * multiple blood cultures negative during this admission * anaplasmosis smear negative. anaplasmosis DNA send/pending * multiple COVID tests negative this admission * c diff negative * lumbar spine MRI negative for discitis/epidural abscess * dopplers legs negative for DVT * CT abd/pelvis given fluctuating LLQ pain/groin pain - nothing infectious seen recent low grade fevers - 2nd pulmonary embolus? (but only had [address] - doubt this was the cause) etoh withdrawal? (during previous hospital stays he has had similar low-grade fever with his withdrawal) tick-borne infection? plan - * repeat blood cultures pending but still are negative * await Lyme Western blot; await Anaplasmosis DNA test * if blood cultures are positive for gram + pathogen would need echo - r/o SBE If tick-borne labs return negative and fevers recur then ID consult at that time. (3) Elevated sed rate: Plan: severe; >100 etiology? see #2 above (4) Alcohol withdrawal: Plan: during past hospital stays he has had very prolonged etoh withdrawal during 1 stay it was well over 14 days in duration ?still possible he is experiencing some symptoms (tremors, tachycardia, etc)? remains on etoh AWSS protocol ativan prn finishing a librium taper - currently on 5mg BID; change to once daily x 2 days tomorrow then stop completely (5) Pneumonia: Plan: b/l. Aspiration vs Community-acquired. CT chest with b/l infiltrates c/w pneumonia. clinically RESOLVED Initially on Ceftriaxone and Azithromycin for a few days and then converted to Unasyn. Then Unasyn changed to Levaquin on 10/28/21 for better gram negative coverage; completed 7 days of levaquin. HE IS OFF ALL ANTIBIOTICS AT THIS TIME. Multiple sets of blood cultures negative. Biofire (including COVID) 10/28/21 negative. low-grade fevers -- see above. of note - doxycycline is to cover Lyme while awaiting Western Blot, and to cover Anaplasmosis while awaiting DNA test. (6) Acute respiratory failure: Plan: RESOLVED Intubated 10/16/21. Extubated to BIPAP 10/17/21. Acute resp failure 2nd to aspiration pneumonia. CXRs have improved. O2 sats low 90s in room air. (7) Acute metabolic encephalopathy: Plan: Multiple possible etiologies - metabolic (pneumonia, recent RLE cellulitis, nutritional deficiencies, etoh withdrawal, etc) vs toxic (benzodiazepines) vs combination vs other. IMPROVED. Cont Librium taper - now at 5mg BID; wean to 5mg daily x 2 days tomorrow, then stop. s/p thiamine 500mg PO TID x 3 day; now on 200mg BID. Of note - most recent TSH, B12, ammonia levels wnl. VBG without hypercarbia. (8) Cellulitis of right leg: Plan: 2nd MSSA. Received Unasyn then rocephin. Cellulitis resolved. All blood cultures negative. (9) Alcohol use disorder: Plan: Initially had intoxication at admission, then developed withdrawal. Treated with phenobarbital then librium. Cont librium taper -- see above. Cont gabapentin for suspected neuropathy of both feet - 400mg TID. Continue thiamine, multivitamin, folic acid Continue seizure precautions (10) Electrolyte abnormality: Plan: Most recent K/Mag/Phos/Ca all acceptable. (11) Hepatitis C: Plan: Viral load around 7000 AST has climbed some over the last few days - checked CPK and was wnl Needs ID/GI f/u post-discharge (12) Opioid use disorder: Plan: Continue Suboxone twice daily (13) HTN (hypertension), benign: Plan: BPs were low-normal on 20mg lisinopril. reduced dose back to 10mg/day. still low even on 10mg - thus lisinopril stopped. 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 follow western blot. Cont gabapentin TID L-spine MRI with L5-S1 disc herniation which could be contributing to left foot numbness. 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 Can't rule out a nutritional deficiency. Can't rule out other factors. MRI l-spine with L5-S1 herniated disc on left. Gabapentin -- increase to 400mg TID. Cont Thiamine supplementation. Lyme screen is equivocal - see below - cover with doxy. This is the patient's main complaint every day, and continues to complain of b/l leg weakness (although on exam strength is intact). Given fevers, elevated sed rate, and these neuro complaints - I asked neuro to see to ensure nothing else needs worked up. Appreciate their consult - they feel neuropathy is likely 2nd to etoh. Advise outpatient EMGs and increase in gabapentin to 600mg TID. Will increase to 400mg TID first, then in a few days increase to 600mg TID. (20) Vitamin D deficiency: Plan: 10/22/21 level undetectable currently on vit D 5000 IU daily will need level repeat in 3 months (21) Positive Lyme disease serology: Plan: to be safe remains on doxy 100mg BID while awaiting western blot await anaplasmosis DNA (smear negative for inclusions) (22) Diarrhea: Plan: NEGATIVE c.diff cont lactinex diarrhea has improved (23) Hyponatremia: Plan: Urine osm and urine Na noted appears euvolemic on exam will add NaCL 1gm daily and check BMP in am (24) Sinus tachycardia: Plan: Differential - SIRS from recent pneumonia, RLE cellulitis, etc VS etoh withdrawal VS primary cardiac disorder (cardiomyopathy, etc) VS combo factors VS other. TSH wnl. H/H acceptable. No significant pain. Has a solitary PE - doubt it is causing the tachycardia. Will obtain echo to ensure LV function is preserved. Repeat an EKG in am. Repeat a troponin in am. If LV function is low and trop is still elevated - myocarditis ?? other? Plan dipso - needs rehab, hopefully [facility] unsafe to return home I updated pt's roommate Parul Maldonado on 10/31/21 pt's mother - Tiffanie Hodge [phone] - left message for her 11/03/21 Admission and Anticipated Discharge Date Admission Date: October 14, 2021 Subjective patient w/o complaints today mild b/l foot paresthesias remain eating well no dyspnea no cough no abd pain he is still agreeable to acute rehab post-d/c requiring about 2mg of PO ativan daily for ??etoh withdrawal symptoms (tremors, tachycardia, etc) quite weak still; rarely getting out of bed diarrhea has stopped Review of Systems Review of Systems: gen - no fevers, no chills cv - no orthopnea pulm - no cough/dyspnea GI - no abd pain or vomiting musculo - no joint pains neuro - no headache Physical Exam Physical Exam: gen - NAD, comfortable, resting in bed mouth - MMM neck - no JVD heart - RR, tachy, s1 s2, no murmur lungs - minimal b/l basilar rales, CTA b/l otherwise abd - soft, ND, BS+, NT ext - trace edema b/l, pulses 2+ b/l skin - numerous erythematous lesions b/l shins, much more in quantity on right, with ?abrasion on right tibial plateau region; no cellulitis neuro - strength 5/5 b/l hip flexion, b/l knee extension, and dorsiflexion/plantarflexion of both feet; mild tremors slightly better today Results & Data Results & Data ([facility]) Vital Signs (Past 12 Hours) Vital Signs Temp Pulse Pulse Resp BP Pulse Ox O2 Del Method 11/05/21 19:00 37 C 103 H 18 124/78 93 Room Air 11/05/21 15:45 37.3 C 103 H 18 134/92 93 Room Air 11/05/21 10:53 37.5 C 106 H 18 146/93 H 95 Room Air 11/05/21 12:34 Room Air 11/05/21 12:34 104 H Laboratory Results Laboratory Results - last 24 hr 11/04/21 11/05/21 11/05/21 21:26 05:33 05:33 WBC RBC Hgb Hct MCV MCH MCHC RDW Std Deviation RDW Coeff of Desiree Plt Count MPV APTT 48.1 H* 47.8 H* PTT Ratio 1.7 1.7 Sodium 133 L Potassium 4.1 Chloride 97 L Carbon Dioxide 29 Anion Gap 7 BUN 9 Creatinine 0.63 Est Cr Clr Drug Dosing 208.4 Est GFR ( Amer) 145.9 Est GFR (Non-Af Amer) 125.9 BUN/Creatinine Ratio 14.3 Glucose 91 Calcium 9.2 Magnesium 1.7 11/05/21 05:33 WBC 9.40 RBC 3.67 L Hgb 11.4 L Hct 36.8 L MCV 100.3 H MCH 31.1 MCHC 31.0 L RDW Std Deviation 52.0 H RDW Coeff of Desiree 14.3 Plt Count 221 MPV 13.4 H APTT PTT Ratio Sodium Potassium Chloride Carbon Dioxide Anion Gap BUN Creatinine Est Cr Clr Drug Dosing Est GFR ( Amer) Est GFR (Non-Af Amer) BUN/Creatinine Ratio Glucose Calcium Magnesium PG Care Time/CCT Total # of Minutes Spent Total Time Spent with Patient: Total time spent is greater than 50% in coordination of care (as documented) at patient's floor/unit and/or counseling patient: Coding Level of Care Code 01614 Subseq Hosp Care Lvl 3 Diagnoses Pulmonary embolus I26.99 Fever R50.9 Elevated sed rate R70.0 Alcohol withdrawal F10.239 Complication of substance-induced condition: with unspecified complication Pneumonia J18.9 Acute respiratory failure J96.00 Acute metabolic encephalopathy G93.41 Cellulitis of right leg L03.115 Alcohol use disorder Electrolyte abnormality E87.8 Hepatitis C B19.20 Opioid use disorder F11.90 HTN (hypertension), benign I10 Physical deconditioning R53.81 Obesity (BMI 30-39.9) E66.9 Malnutrition due to starvation E46; T73.0XXS Tobacco dependence F17.200 DVT prophylaxis Z29.9 Neuropathy G62.9 Vitamin D deficiency E55.9 Positive Lyme disease serology R76.8 Diarrhea R19.7 Hyponatremia E87.1 Sinus tachycardia R00.0 (1) Alcohol withdrawal Complication of substance-induced condition: with unspecified complication Qualified Code(s): F10.239 - Alcohol dependence with withdrawal, unspecified
[2021-11-05 23:32] LABS: 18KDIGG Band REACTIVE; 23KDIGG Band NON-REACTIVE; 23KDIGM Band NON-REACTIVE; 28KDIGG Band NON-REACTIVE; 30KDIGG Band NON-REACTIVE; 39KDIGG Band NON-REACTIVE; 39KDIGM Band NON-REACTIVE; 41KDIGG Band NON-REACTIVE; 41KDIGM Band NON-REACTIVE; 45KDIGG Band NON-REACTIVE; 58KDIGG Band NON-REACTIVE; 66KDIGG Band NON-REACTIVE; 93KDIGG Band NON-REACTIVE; Lyme Antibodies, WB IgG NEGATIVE (NEGATIVE); Lyme Antibodies, WB IgM NEGATIVE (NEGATIVE)
[2021-11-06 07:05] LABS: Basophils # (auto) 0.06 K/uL (0-0.2); Basophils % (auto) 0.6 %; Eosinophils # (auto) 1.91 K/uL (0-0.50); Eosinophils % (auto) 20.1 %; Hematocrit (blood only) 38.1 % (40.1-51.0); Hemoglobin 11.9 g/dl (14.0-18.0); Immature Granulocytes % (auto) 1.1 %; Lymphocytes # (auto) 2.36 K/uL (1.2-3.4); Lymphocytes % (auto) 24.8 %; Mean Corpuscular Hemoglobin 30.8 pg (25.0-34.0); Mean Corpuscular Hgb Conc 31.2 g/dL (32.0-36.0); Mean Corpuscular Volume 98.7 fL (80.0-100.0); Mean Platelet Volume 12.5 fL (9.4-12.4); Monocytes # (auto) 0.91 K/uL (0.24-0.82); Monocytes % (auto) 9.6 %; Neutrophils # (auto) 4.18 K/uL (1.4-6.5); Neutrophils % (auto) 43.8 %; Platelet Count 226 K/uL (130-400); RDW Coefficient of Variation 14.4 % (11.5-14.5); Red Blood Count 3.86 M/uL (4.63-6.08); White Blood Count 9.52 K/ul (4.8-10.8)
[2021-11-06 07:25] LABS: BUN Creatinine Ratio 13.8 (10-20); Calcium 9.6 mg/dl (8.5-10.1); Creatinine Clr Calc Pharmacy 202.7 ml/min; Est GFR (African American) 144.1 ml/min; Est GFR (Non-African American) 124.3 ml/min; Potassium 4.3 mmol/L (3.5-5.1)
[2021-11-06 07:31] LABS: Troponin I High Sensitivity 7.7 pg/ml (0-20)
[2021-11-06] MEDS: APIXABAN 5 MG TABLET PO SCH ×2 (08:00→20:17)
[2021-11-06] MEDS: GABAPENTIN 400 MG CAP PO SCH ×2 (08:00→13:13)
[2021-11-06] MEDS: FOLIC ACID 1 MG TAB PO SCH (08:01)
[2021-11-06] MEDS: PANTOprazole 40 MG TAB PO SCH (08:01)
[2021-11-06] MEDS: CEROVITE ADV FORMULA TAB PO SCH (08:01)
[2021-11-06] MEDS: NICOTINE 21 MG/24 HR TDSY TD SCH (08:01)
[2021-11-06] MEDS: ADVANCED PROBIOTIC 1250 MG CAPSULE PO SCH (08:01)
[2021-11-06] MEDS: CHOLECALCIFEROL 5,000 UNITS 125 MCG TAB PO SCH (08:01)
[2021-11-06] MEDS: SODIUM CHLORIDE 1 GM TABLET PO SCH (08:01)
[2021-11-06] MEDS: THIAMINE HCL 100 MG TAB PO SCH ×2 (08:01→20:17)
[2021-11-06] MEDS: BUPRENORPHINE/NALOXONE 8/2 MG TAB SL SCH ×2 (08:04→20:17)
[2021-11-06] MEDS: chlordiazePOXIDE HCl 5 MG CAP PO SCH (08:04)
[2021-11-06] MEDS: LORazepam 1 MG TAB PO PRN ×2 (08:04→16:17)
--- NOTE | 2021-11-06 08:41 | XCELERA ---
[id number]
[2021-11-06] MEDS: DOXYCYCLINE HYCLATE 100 MG CAP PO SCH ×2 (08:54→20:17)
--- NOTE | 2021-11-06 11:49 | Electrocardiogram Report ---
Test Reason : Blood Pressure : / mmHG Vent. Rate : 102 BPM Atrial Rate : 102 BPM P-R Int : 152 ms QRS Dur : 086 ms QT Int : 354 ms P-R-T Axes : 026 092 062 degrees QTc Int : 461 ms Poor data quality, interpretation may be adversely affected Sinus tachycardia Rightward axis Borderline ECG When compared with ECG of 14-OCT-2021 00:28, T wave inversion no longer evident in Inferior leads Confirmed by Edwin Waite ([id number]) on 11/06/2021 11:49:06 AM Referred By: REFERRED SELF Confirmed By:Edwin Waite
--- NOTE | 2021-11-06 16:13 | Hospitalist Progress Note ---
Date of Service November 06, 2021 Assessment & Plan (1) Alcohol withdrawal: Plan: during past hospital stays he has had very prolonged etoh withdrawal during 1 stay it was well over 14 days in duration This time he was again in the ICU, on Precedex gtt, high doses benzos, intubated x 1-2 days Likely possible he is experiencing some residual mild withdrawal symptoms (tremors, tachycardia, etc)? remains on etoh AWSS protocol ativan prn finishing a librium taper - currently on 5mgdailyx 1 more day then stop completely Improved Ultimately needs EtOH rehab continue MVI, thiamine, folic acid (2) Pulmonary embolus: Plan: CTA chest with a single pulmonary embolus seen. dopplers of legs are negative. no h/o GI bleed or esophageal varices. initially on heparin IV and then transitioned to Eliquis 10mg BID x 7 days, then 5mg BID thereafter would Rx for 3 months given it is a solitary pulmonary embolus and this event would be considered provoked (bed-bound several weeks, etc) (3) Fever: Plan: RESOLVED x for several days now * to date has had b/l pneumonia - adequately treated -- likely received 7-10 days at minimum * RLE cellulitis 2nd MSSA adequately treated * he does have a positive lyme screen and is on doxy while awaiting Western Blot- WB negative but if never treated previously for Lyme, would finish out 10 day course on 11/10 * multiple blood cultures negative during this admission * anaplasmosis smear negative. anaplasmosis DNA send/pending * multiple COVID tests negative this admission * c diff negative * lumbar spine MRI negative for discitis/epidural abscess * dopplers legs negative for DVT * CT abd/pelvis given fluctuating LLQ pain/groin pain - nothing infectious seen Fevers likely from atelectasis (very immobile), PE, etoh withdrawal? (during previous hospital stays he has had similar low-grade fever with his withdrawal) Now resolved continue to encourage mobiliation at rehab no further workup needed at this time (4) Elevated sed rate: Plan: severe; >100 etiology? see #2 above follow (5) Pneumonia: Plan: b/l. Aspiration vs Community-acquired. CT chest with b/l infiltrates c/w pneumonia. clinically RESOLVED Initially on Ceftriaxone and Azithromycin for a few days and then converted to Unasyn. Then Unasyn changed to Levaquin on 10/28/21 for better gram negative coverage; completed 7 days of levaquin. HE IS OFF ALL ANTIBIOTICS AT THIS TIME. Multiple sets of blood cultures negative. Biofire (including COVID) 10/28/21 negative. low-grade fevers --now resolved of note - doxycycline is to cover Lyme while awaiting Western Blot, and to cover Anaplasmosis while awaiting DNA test. Follow CXR to resolution of infiltrates in 4-6 weeks (6) Acute respiratory failure: Plan: RESOLVED Intubated 10/16/21. Extubated to BIPAP 10/17/21. Acute resp failure 2nd to aspiration pneumonia. CXRs have improved. O2 sats now mid 90s on room air. (7) Acute metabolic encephalopathy: Plan: Multiple possible etiologies - metabolic (pneumonia, recent RLE cellulitis, nutritional deficiencies, etoh withdrawal, etc) vs toxic (benzodiazepines) vs combination vs other. MUCH IMPROVED/RESOLVED Cont Librium taper -continue thiamine Of note - most recent TSH, B12, ammonia levels wnl. VBG without hypercarbia. (8) Cellulitis of right leg: Plan: 2nd MSSA. Received Unasyn then rocephin. Cellulitis resolved. All blood cultures negative. (9) Alcohol use disorder: Plan: Initially had intoxication at admission, then developed withdrawal. Treated with phenobarbital then librium. Cont librium taper -- see above. Cont gabapentin for suspected neuropathy of both feet - increase to 600mg TID for improved neuropathy control. Continue thiamine, multivitamin, folic acid Continue seizure precautions (10) Electrolyte abnormality: Plan: Most recent K/Mag/Phos/Ca all acceptable. (11) Hepatitis C: Plan: Viral load around 7000 AST has climbed some over the last few days - checked CPK and was wnl Needs ID/GI f/u post-discharge (12) Opioid use disorder: Plan: Continue Suboxone twice daily (13) HTN (hypertension), benign: Plan: BPs were low-normal on 20mg lisinopril. reduced dose back to 10mg/day. still low even on 10mg - thus lisinopril stopped. (14) Physical deconditioning: Plan: Severe deconditioning Could be critical illness myopathy CPK checked and wnl Does have paresthesias of both feet -- neuropathy could be contributing to w eakness Checked a lyme test - added doxy. follow western blot-negative Cont gabapentin TID and increase dose to 600mg tid L-spine MRI with L5-S1 disc herniation which could be contributing to left foot numbness. Cont PT/OT will need rehab post-discharge - patient prefers [facility] (15) Obesity (BMI 30-39.9): Plan: BMI 34 (16) Malnutrition due to starvation: Plan: MVI/thiamine/folic acid (17) Tobacco dependence: Plan: student support counselor to quit cont nicoderm patch (18) Neuropathy: Plan: Likely 2nd to etoh abuse. Can't rule out a nutritional deficiency. Can't rule out other factors. MRI l-spine with L5-S1 herniated disc on left. Gabapentin -- increase again to 600mg TID. Cont Thiamine supplementation. Lyme screen is equivocal - WB negative but treat with doxy for 10 day course This is the patient's main complaint every day, and continues to complain of b/l leg weakness (although on exam strength is intact). Given fevers, elevated sed rate, and these neuro complaints - I asked neuro to see to ensure nothing else needs worked up. Appreciate their consult - they feel neuropathy is likely 2nd to etoh. Advise outpatient EMGs and increase in gabapentin to 600mg TID. Will increase to 400mg TID first, then in a few days increase to 600mg TID. (19) Vitamin D deficiency: Plan: 10/22/21 level undetectable currently on vit D 5000 IU daily will need level repeat in 3 months (20) Positive Lyme disease serology: Plan: to be safe remains on doxy 100mg BID for 10 day course as above await anaplasmosis DNA (smear negative for inclusions) (21) Diarrhea: Plan: NEGATIVE c.diff cont lactinex diarrhea has improved (22) Hyponatremia: Plan: Urine osm and urine Na noted appears euvolemic on exam added NaCL 1gm daily and now improved -continue NaCl 1000mg po daily until appetite and po intake improve -check BMP in am (23) Sinus tachycardia: Plan: Differential - SIRS from recent pneumonia, RLE cellulitis, etc VS etoh withdrawal VS primary cardiac disorder (cardiomyopathy, etc) VS combo factors VS other. TSH wnl. H/H acceptable. No significant pain. Has a solitary PE - doubt it is causing the tachycardia. obtained echo to ensure LV function is preserved.ECHO normal Troponin negative not overly concerned (24) DVT prophylaxis: Plan: Eliquis Plan dipso - needs rehab, hopefully [facility] tomorrow-notified Risk Tech unsafe to return home pt's roommate Parul Maldonado pt's mother - Tiffanie Hodge [phone] Admission and Anticipated Discharge Date Admission Date: October 14, 2021 Subjective Pt feeling better today. Got out of bed a bit with PT but still feels very weak. has a mild occasional cough. Is moving bowels, making urine eating but appetite still not great-doesn't like the food here. Still feels pins and needles in his feet bilat Tele with NSR, ST at times, usually low 100s Review of Systems Review of Systems: All systems reviewed & are unremarkable except as noted in HPI & below Physical Exam Physical Exam: gen - NAD, comfortable, resting in bed mouth - MMM neck - no JVD heart - RR, mildly tachy, s1 s2, no murmur lungs - CTAB no wcr, breathing unlabored abd - soft, ND, BS+, NT ext - trace edema b/l, pulses 2+ b/l skin - numerous erythematous lesions b/l shins, much more in quantity on right, with ?abrasion on right tibial plateau region; no cellulitis neuro - strength 5/5 b/l hip flexion, b/l knee extension, and dorsiflexion/plantarflexion of both feet; mild tremors slightly better today Results & Data Results & Data ([facility]) Vital Signs (Past 12 Hours) Vital Signs Temp Pulse Resp BP Pulse Ox 11/06/21 11:27 109 H 11/06/21 08:00 37.0 C 88 18 131/68 95 Laboratory Results 11/06/21 11/06/21 11/01/21 Range/Units 06:42 06:42 07:29 WBC 9.52 (4.8-10.8) K/ul RBC 3.86 L (4.63-6.08) M/uL Hgb 11.9 L (14.0-18.0) g/dl Hct 38.1 L (40.1-51.0) % MCV 98.7 (80.0-100.0) fL MCH 30.8 (25.0-34.0) pg MCHC 31.2 L (32.0-36.0) g/dL RDW Std Deviation 52.0 H (36.4-46.3) fL RDW Coeff of Desiree 14.4 (11.5-14.5) % Plt Count 226 (130-400) K/uL MPV 12.5 H (9.4-12.4) fL Immature Gran % (Auto) 1.1 % Neut % (Auto) 43.8 % Lymph % (Auto) 24.8 % [place] % (Auto) 9.6 % Eos % (Auto) 20.1 % Baso % (Auto) 0.6 % Neut # (Auto) 4.18 (1.4-6.5) K/uL Lymph # (Auto) 2.36 (1.2-3.4) K/uL [place] # (Auto) 0.91 H (0.24-0.82) K/uL Eos # (Auto) 1.91 H (0-0.50) K/uL Baso # (Auto) 0.06 (0-0.2) K/uL Immature Gran # (Auto) 0.10 H (0.00-0.02) K/uL Sodium 132 L (136-145) mmol/L Potassium 4.3 (3.5-5.1) mmol/L Chloride 98 (98-107) mmol/L Carbon Dioxide 28 (21-32) mmol/L Anion Gap 6 (3-11) BUN 9 (6-23) mg/dl Creatinine 0.65 (0.6-1.4) mg/dl Est Cr Clr Drug Dosing 202.7 ml/min Est GFR ( Amer) 144.1 ml/min Est GFR (Non-Af Amer) 124.3 ml/min BUN/Creatinine Ratio 13.8 (10-20) Glucose 92 (70-99(Fasting)) mg/dl Calcium 9.6 (8.5-10.1) mg/dl Troponin I High Sens 7.7 D (0-20) pg/ml Lyme IgG (Western Blot) NEGATIVE (NEGATIVE) Lyme IgG 18 kDa Band REACTIVE A Lyme IgG 23 kDa Band NON-REACTIVE Lyme IgG 28 kDa Band NON-REACTIVE Lyme IgG 30 kDa Band NON-REACTIVE Lyme IgG 39 kDa Band NON-REACTIVE Lyme IgG 41 kDa Band NON-REACTIVE Lyme IgG 45 kDa Band NON-REACTIVE Lyme IgG 58 kDa Band NON-REACTIVE Lyme IgG 66 kDa Band NON-REACTIVE Lyme IgG 93 kDa Band NON-REACTIVE Lyme IgM Ab (WB) NEGATIVE (NEGATIVE) Lyme IgM 23 kDa Band NON-REACTIVE Lyme IgM 39 kDa Band NON-REACTIVE Lyme IgM 41 kDa Band NON-REACTIVE PG Care Time/CCT Total # of Minutes Spent Total Time Spent with Patient: Total time spent is greater than 50% in coordination of care (as documented) at patient's floor/unit and/or counseling patient: Coding Level of Care Code 53579 Subseq Hosp Care Lvl 2 Diagnoses Alcohol withdrawal F10.239 Complication of substance-induced condition: with unspecified complication Pulmonary embolus I26.99 Fever R50.9 Elevated sed rate R70.0 Pneumonia J18.9 Acute respiratory failure J96.00 Acute metabolic encephalopathy G93.41 Cellulitis of right leg L03.115 Alcohol use disorder Electrolyte abnormality E87.8 Hepatitis C B19.20 Opioid use disorder F11.90 HTN (hypertension), benign I10 Physical deconditioning R53.81 Obesity (BMI 30-39.9) E66.9 Malnutrition due to starvation E46; T73.0XXS Tobacco dependence F17.200 Neuropathy G62.9 Vitamin D deficiency E55.9 Positive Lyme disease serology R76.8 Diarrhea R19.7 Hyponatremia E87.1 Sinus tachycardia R00.0 DVT prophylaxis Z29.9 (1) Alcohol withdrawal Complication of substance-induced condition: with unspecified complication Qualified Code(s): F10.239 - Alcohol dependence with withdrawal, unspecified
[2021-11-06] MEDS: GABAPENTIN 300 MG CAP PO SCH (20:18)
[2021-11-07 08:15] LABS: Basophils # (auto) 0.08 K/uL (0-0.2); Basophils % (auto) 0.9 %; Eosinophils # (auto) 1.64 K/uL (0-0.50); Eosinophils % (auto) 18.8 %; Hematocrit (blood only) 40.4 % (40.1-51.0); Hemoglobin 12.9 g/dl (14.0-18.0); Immature Granulocytes # (auto) 0.07 K/uL (0.00-0.02); Immature Granulocytes % (auto) 0.8 %; Lymphocytes # (auto) 2.44 K/uL (1.2-3.4); Lymphocytes % (auto) 27.9 %; Mean Corpuscular Hemoglobin 30.8 pg (25.0-34.0); Mean Corpuscular Hgb Conc 31.9 g/dL (32.0-36.0); Mean Corpuscular Volume 96.4 fL (80.0-100.0); Mean Platelet Volume 12.4 fL (9.4-12.4); Monocytes # (auto) 0.72 K/uL (0.24-0.82); Monocytes % (auto) 8.2 %; Neutrophils # (auto) 3.79 K/uL (1.4-6.5); Neutrophils % (auto) 43.4 %; Platelet Count 224 K/uL (130-400); RDW Coefficient of Variation 14.4 % (11.5-14.5); Red Blood Count 4.19 M/uL (4.63-6.08); White Blood Count 8.74 K/ul (4.8-10.8)
[2021-11-07] MEDS: BUPRENORPHINE/NALOXONE 8/2 MG TAB SL SCH (08:17)
[2021-11-07] MEDS: chlordiazePOXIDE HCl 5 MG CAP PO SCH (08:17)
[2021-11-07] MEDS: LORazepam 1 MG TAB PO PRN ×2 (08:17→14:22)
[2021-11-07] MEDS: GABAPENTIN 300 MG CAP PO SCH ×2 (08:17→13:12)
[2021-11-07] MEDS: APIXABAN 5 MG TABLET PO SCH (08:18)
[2021-11-07] MEDS: CEROVITE ADV FORMULA TAB PO SCH (08:18)
[2021-11-07] MEDS: PANTOprazole 40 MG TAB PO SCH (08:18)
[2021-11-07] MEDS: SODIUM CHLORIDE 1 GM TABLET PO SCH (08:18)
[2021-11-07] MEDS: FOLIC ACID 1 MG TAB PO SCH (08:18)
[2021-11-07] MEDS: DOXYCYCLINE HYCLATE 100 MG CAP PO SCH (08:18)
[2021-11-07] MEDS: THIAMINE HCL 100 MG TAB PO SCH (08:18)
[2021-11-07] MEDS: ADVANCED PROBIOTIC 1250 MG CAPSULE PO SCH (08:18)
[2021-11-07] MEDS: CHOLECALCIFEROL 5,000 UNITS 125 MCG TAB PO SCH (08:19)
[2021-11-07] MEDS: NICOTINE 21 MG/24 HR TDSY TD SCH (08:19)
[2021-11-07 08:55] LABS: Albumin Globulin Ratio 0.8 (0.9-2); Albumin Level 3.4 gm/dl (3.4-5.0); BUN Creatinine Ratio 12.9 (10-20); Bilirubin,Total 1.2 mg/dl (0.2-1.0); C Reactive Protein 1.98 mg/dl (0-0.5); Calcium 9.8 mg/dl (8.5-10.1); Creatinine Clr Calc Pharmacy 212.7 ml/min; Est GFR (African American) 146.9 ml/min; Est GFR (Non-African American) 126.7 ml/min; Globulin 4.5 gm/dl (2.5-4.0); Magnesium 1.7 mg/dl (1.7-2.4); Potassium 4.9 mmol/L (3.5-5.1); Total Protein 7.9 gm/dl (6.0-8.3)
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
[2021-11-12] MEDS ORDERED: APIXABAN 5 MG TABLET PO SCH (09:00)
== END 2021-11-07 16:58 | DRG 871 ==
LOC: ED 23:26 → 1E 10-14 02:04 → SUATTDRO 10-14 02:04 → 1E 10-14 03:15 → 2S 10-27 14:25 → 3W 10-29 15:00 → 2E 11-02 21:56

== ENCOUNTER 2023-08-16 20:06 | Inpatient (IN) ==
--- NOTE | 2023-08-16 20:48 | Emergency Department Note ---
Impression & Plan Alcohol abuse ADMIT ED Provider Note HPI: History obtained from patient. The patient is a 38-year-old gentleman with history of alcohol abuse, substance abuse, presents the emergency department with a chief complaint of possible alcohol withdrawal. Patient states that he was brought here from [place], [place], where he lives by his parents. He states they dropped him off. When asked the patient why he came here from [place] he states "because I respect this hospital". Patient states he feels that he is going through alcohol withdrawal and he is requesting Ativan. On my assessment the patient smells of alcohol, he appears intoxicated, he is an overall poor historian. He states he does have some chronic lower back pain. He denies any vomiting. Patient is hemodynamically stable on arrival, he does not exhibit any tremulousness on my exam. ROS: - Per HPI Differential Diagnosis: Acute alcohol intoxication, alcohol withdrawal, chronic back pain, acute pancreatitis, acute gastritis, amongst other potential pathologies. *Outpatient medications and allergy history reviewed. PE: General: Alert, intoxicated, smells of alcohol HEENT: Normocephalic, trachea midline Eyes: Extraocular eye movement is intact, no scleral erythema Pulmonary: Clear to auscultation bilaterally, no wheezing Cardio: Regular rate and rhythm GI: Abdomen is soft to palpation : No suprapubic tenderness MSK: No evidence of trauma or malformation of the extremities, no edema Skin: No evidence of rash Neuro: Alert, no focal deficits Psychiatric: Cooperative Interventions provided in ED: -IV fluid bolus, Ativan, Suboxone Medical Decision Making: IV was established and lab work obtained, lab work shows no leukocytosis, hemoglobin is stable at 13.9, platelet count is slightly low at 118, CMP does not show any critical findings. Lipase is noted to be elevated at 401, patient does not have any abdominal tenderness on my exam but he does state that he has some pain in his lower back. Given his chronic alcohol abuse, I do have concern for acute pancreatitis therefore CT imaging of the abdomen pelvis was ordered and pancreas does not appear to be inflamed per the interpreting radiologist. There is mention of some pericholecystic fluid without any secondary findings for acute cholecystitis, patient does not have any right upper quadrant tenderness on my exam, he has not had any vomiting, low suspicion for acute cholecystitis at this time. Alcohol level is markedly elevated at 526. Patient was given a small dose of oral Ativan by request when he initially was seen. In addition he requested Suboxone as he stated this was one of his home medications and he was given a dose of Suboxone. Patient tells me he is from [place], [place]. He was offered consultation by case management for inpatient alcohol detox. Patient states he does not want inpatient detox but he would like to speak to case management about rehab facilities as he stated he looked into this on his own and he thought it would be too expensive for his current situation. Case management was consulted, they did see the patient and upon their evaluation the patient requested inpatient admission for detox and eventual placement into alcohol detox facility if possible. Given this, case was discussed with [facility] hospitalist, Dr. Wick, patient was placed for admission in stable condition. Consultants/Discussions held with other healthcare providers: -Case management, Emmie Dugan -Hospitalist, Dr. Wick Disposition discussion held by myself with: -Patient Diagnosis: 1. Alcohol intoxication, acute 2. Elevated lipase, acute, nonspecific 3. Encounter/request for alcohol detox Disposition: Admission Maximo Kirby DO Emergency Medicine Past Med/Surg History Problem List (Updated 12/08/21 @ 00:09 by Background Keshav) Alcohol abuse (Acute) Hospital discharge follow-up (Acute) Sinus tachycardia Hyponatremia Pulmonary embolus (Chronic) Elevated sed rate Positive Lyme disease serology Vitamin D deficiency Neuropathy Physical deconditioning Wheeze Hepatitis C Acute metabolic encephalopathy Malnutrition due to starvation Obesity (BMI 30-39.9) Delirium tremens Alcohol withdrawal (Acute) Cellulitis of right leg (Acute) Electrolyte abnormality Tobacco dependence Alcohol withdrawal seizure (Acute) Thrombocytopenia Hypophosphatemia SIRS (systemic inflammatory response syndrome) Alcoholic hepatitis Opioid use disorder Alcohol use disorder HTN (hypertension), benign BESSIE (acute kidney injury) Hyponatremia (Acute) Acute renal failure (Acute) Hypokalemia (Acute) Alcohol withdrawal (Acute) Engages in vaping Hypokalemia High serum osmolar gap (Acute) Medical History Alcohol use disorder Alcohol withdrawal seizure Bilateral pneumonia HTN (hypertension), benign Obesity (BMI 30-39.9) Opioid use disorder Surgical History No pertinent past surgical history Family History Other No pertinent family history Social History Smoking Status: Current every day smoker Tobacco Type: Cigarettes Cigarettes Per Day: 15; Second Hand Exposure: Yes; Do You Dip or Chew Tobacco: No; Hx Alcohol Use: Yes Alcohol type: hard liquor and other Hx Substance Use: No Preferred Language: Greenlandic Communication Ability: Unable Handbook Writer Required: No Beliefs That Will Affect Care: None marital status: Single Current Living Situation: Alone How many Children do You have: 0 Feels Safe at Home: Yes Assistive Devices: None Allergies Allergies Allergy/AdvReac Type Severity Reaction Status Date / Time No Known Allergies Allergy Unverified 12/05/21 09:56 Home Meds Home Medications Medication Instructions Recorded Confirmed buprenorphine 8 mg-naloxone 2 mg 1 tab sublingual BID 09/04/20 12/05/21 sublingual tablet multivitamin 1 tab PO DAILY 10/14/21 12/05/21 Previous Rx's Medication Instructions Recorded L.acidop,casei,lactis,rham-B.lact,alissa 2 cap PO DAILY #60 caps 11/07/21 625 mg (10 billion cell) capsule (Advanced Probiotic) cholecalciferol (vitamin D3) 125 5,000 unit PO QAM #30 tabs 11/07/21 mcg (5,000 unit) tablet folic acid 1 mg tablet 1 mg PO QAM #30 tabs 11/07/21 gabapentin 600 mg tablet 600 mg PO TID #90 tabs 11/07/21 lorazepam 1 mg tablet 1 mg PO Q8H PRN anxiety #14 tabs 11/07/21 nicotine 21 mg/24 hr daily 21 mg transdermal QAM #14 ea 11/07/21 transdermal patch (Nicoderm CQ) pantoprazole 40 mg tablet,delayed 40 mg PO QAM #30 tabs 11/07/21 release sodium chloride 1 gram tablet 1 g PO DAILY #30 tabs 11/07/21 thiamine HCl (vitamin B1) 100 mg 200 mg (2 x 100 mg) PO DAILY #60 11/07/21 tablet tabs Results & Data (ED) Vital Signs Vital Signs - 24 hr 08/16/23 20:08 08/16/23 23:10 Temperature 36.7 C Temperature Source Temporal Artery Scan Pulse Rate 107 H Pulse Rate [Finger] 65 Respiratory Rate 20 18 Respiratory Effort / Characteristics Non-Labored Non-Labored Spontaneous Respiratory Depth Normal Normal Respiratory Pattern Regular Blood Pressure 161/74 H Blood Pressure [Right Arm] 130/84 Blood Pressure Mean 103 Blood Pressure Mean [Right Arm] 99 Pulse Oximetry 96 95 Oxygen Delivery Method Room Air Room Air Sepsis Recent Fever Within 48 Hours No Sepsis New/Unexplained Change in Mental Status N/A Sepsis Action Taken by Nursing No Action Required Laboratory Data 08/16/23 20:21 08/16/23 20:21 Lab Results 08/16/23 08/16/23 Range/Units 20:21 22:15 WBC 6.65 (4.8-10.8) K/ul RBC 4.61 L (4.70-6.10) M/uL Hgb 13.9 L (14.0-18.0) g/dl Hct 42.0 (42.0-52.0) % MCV 91.1 (80.0-100.0) fL MCH 30.2 (25.0-34.0) pg MCHC 33.1 (32.0-36.0) g/dL RDW Std Deviation 47.3 H (36.4-46.3) fL RDW Coeff of Desiree 14.1 (11.5-14.5) % Plt Count 118 L (130-400) K/uL MPV 10.3 (9.4-12.4) fL Neutrophils % (Manual) 18 % Lymphocytes % (Manual) 50 % Reactive Lymphs % (Man) 25 % Monocytes % (Manual) 3 % Basophils % (Manual) 4 % Neutrophils # (Manual) 1.20 L (1.40-6.50) K/uL Total Absolute Neuts 1.20 L (1.4-6.5) K/uL Lymphocytes # (Manual) 3.33 (1.2-3.4) K/uL Reactive Lymphs # 1.66 K/uL Total Abs Lymphocytes 4.99 H (1.2-3.4) K/uL Monocytes # (Manual) 0.20 (0.11-0.59) K/uL Basophils # (Manual) 0.27 H (0-0.2) K/uL Sodium 144 (136-145) mmol/L Potassium 3.8 (3.5-5.1) mmol/L Chloride 104 (98-107) mmol/L Carbon Dioxide 30 (21-32) mmol/L Anion Gap 10 (3-11) BUN 12 (6-23) mg/dl Creatinine 0.69 (0.6-1.4) mg/dl Est Cr Clr Drug Dosing 122.2 ml/min Est GFR ( Amer) 138.6 ml/min Est GFR (Non-Af Amer) 119.6 ml/min BUN/Creatinine Ratio 17.4 (10-20) Glucose 93 (70-99(Fasting)) mg/dl Calcium 9.3 (8.6-10.3) mg/dl Total Bilirubin 0.7 (0.2-1.0) mg/dl AST 56 H (13-39) U/L ALT 12 (7-52) U/L Alkaline Phosphatase 62 (34-104) U/L Total Protein 8.4 H (6.0-8.3) gm/dl Albumin 5.1 H (3.4-5.0) gm/dl Globulin 3.3 (2.5-4.0) gm/dl Albumin/Globulin Ratio 1.5 (0.9-2) Lipase 401 H (11-82) U/L Urine Color Yellow Urine Appearance Clear (Clear) Urine pH 5.5 (4.5-7.5) Ur Specific [place] 1.025 (1.000-1.030) Urine Protein 1+ H (Negative) Urine Glucose (UA) Negative (Negative) Urine Ketones Negative (Negative) Urine Blood Trace H (Negative) Urine Nitrite Negative (Negative) Urine Bilirubin Negative (Negative) Urine Urobilinogen Negative (Negative) Ur Leukocyte Esterase Negative (Negative) Urine WBC (Auto) 0-5 (0-5) /hpf Urine RBC (Auto) 0-2 (0-2) /hpf U Hyaline Cast (Auto) 0-2 (0-2) /lpf U Epithel Cells (Auto) 0-2 (0-2) /hpf Urine Bacteria (Auto) None Seen (None Seen) Ethyl Alcohol mg/dL 526.0 H (<10.0) mg/dl Administered Medications Discontinued Medications Buprenorphine/Naloxone (Buprenorphine/Naloxone 2/0.5mg 1 Tab) 1 tab PO ONCE ONE Stop: 08/16/23 22:59 Last Admin: 08/16/23 23:11 Dose: 1 tab Documented By: EVELYN Sodium Chloride (Nss) 1,000 mls @ 999 mls/hr IV .Q1H1M BRENDA Stop: 08/16/23 21:46 Last Infusion: 08/16/23 22:27 Dose: Infused [place]ed [place] [facility] Admin: 08/16/23 20:58 Dose: 999 mls/hr Documented By: [facility] Ioversol (Optiray 320 100ml) 93 ml IV ONCE ONE Stop: 08/16/23 21:24 Last Admin: 08/16/23 21:24 Dose: 93 ml Documented By: Andreia Lorazepam (Lorazepam 0.5 Mg Tab) 0.5 mg PO NOW STA Stop: 08/16/23 20:47 Last Admin: 08/16/23 20:55 Dose: 0.5 mg Documented By: [facility] [place] Data Radiologist's Impression: Abdomen/Pelvis CT 08/16/23 21:00 CT abd pelvis IV con only CLINICAL HISTORY: Back pain, elevated lipase TECHNIQUE: Helical axial images of the abdomen and pelvis were obtained and displayed. Automated dose lowering techniques and/or adjustment according to patient size were utilized for this exam. This exam was performed with intravenous contrast. CT DOSE: 935.24 mGy.cm COMPARISON: Comparison is made to CT abdomen pelvis 11/03/2021 FINDINGS: Lower chest: No acute abnormality. Liver: Unremarkable. No focal lesions are seen. Gallbladder and biliary tree: Minimal pericholecystic fluid is seen without thickening of the gallbladder wall. No intra- or extrahepatic biliary ductal dilation. Pancreas: Unremarkable, no focal lesions. Spleen: Unremarkable. Adrenals: Unremarkable. Kidneys and ureters: Renal cysts are seen. Bladder: Prominently distended bladder is seen. Reproductive organs: Unremarkable. 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 The appendix is normal. No evidence of bowel obstruction. Lymph nodes Retroperitoneal: Unremarkable. Pelvic: Unremarkable. Mesenteric: Unremarkable. Previously noted right mesenteric lymph nodes are no longer noted to be prominently enlarged. Peritoneum: Normal. Vessels: Mild atherosclerotic disease is seen. Abdominal wall: Unremarkable. Bones: Minimal degenerative changes are seen. IMPRESSION: 1. No acute abnormalities. In particular no CT evidence of pancreatitis despite elevated lipase. No peripancreatic fluid collections are seen. 2. Pericholecystic fluid is nonspecific but there is no CT evidence of wall thickening to suggest acute cholecystitis. If there is clinical concern, ultrasound could be performed. ACT 112: Negative or not required by law. Electronically signed by: Giorgi Carlson M.D. 08/16/2023 10:42 PM Discharge Plan Visit Data Chief Complaint: Abdominal Pain Stated Complaint: BACK PAIN ED Provider: Maximo Kirby Discharge Problem: Alcohol abuse Patient Disposition: Home - Self-Care Condition: Good Discharge Instructions Krames/Other Patient Handouts: ED Alcohol Intoxication Activity Restrictions/Additional Instructions: Please follow-up with your primary care doctor in 2 to 3 days for further management. Please utilize your outpatient resources as discussed/provided by case management in the ED in regards to obtaining alcohol rehab as an outpatient per your request. Please return to the ER if you have any new or worsening symptoms. Forms Stand Alone Forms: My [facility], Important Visit Information Prescriptions Prescriptions: No Action multivitamin Tablet 1 tab PO DAILY nicotine [Nicoderm CQ] 21 mg/24 hr Patch 24 Hour 21 mg transdermal QAM Qty: 14 0RF gabapentin 600 mg tablet 600 mg PO TID Qty: 90 0RF lorazepam 1 mg Tablet 1 mg PO Q8H PRN (Reason: anxiety) Qty: 14 0RF sodium chloride 1 gram Tablet 1 g PO DAILY Qty: 30 0RF Advanced Probiotic 625 mg (10 billion cell) Capsule 2 cap PO DAILY Qty: 60 0RF pantoprazole 40 mg Tablet,Delayed Release (Dr/Ec) 40 mg PO QAM Qty: 30 0RF cholecalciferol (vitamin D3) 125 mcg (5,000 unit) Tablet 5,000 unit PO QAM Qty: 30 0RF folic acid 1 mg Tablet 1 mg PO QAM Qty: 30 0RF thiamine HCl (vitamin B1) 100 mg Tablet 200 mg PO DAILY Qty: 60 0RF buprenorphine-naloxone 8-2 mg tablet, sublingual 1 tab SUBLINGUAL BID Referrals Referrals: Cesar Harper DO [Primary Care Provider] -
[2023-08-16] MEDS: LORazepam 0.5 MG TAB PO STA (20:55)
[2023-08-16 20:58] LABS: Albumin Globulin Ratio 1.5 (0.9-2); Albumin Level 5.1 gm/dl (3.4-5.0); BUN Creatinine Ratio 17.4 (10-20); Bilirubin,Total 0.7 mg/dl (0.2-1.0); Calcium 9.3 mg/dl (8.6-10.3); Creatinine Clr Calc Pharmacy 122.2 ml/min; Est GFR (African American) 138.6 ml/min; Est GFR (Non-African American) 119.6 ml/min; Globulin 3.3 gm/dl (2.5-4.0); Potassium 3.8 mmol/L (3.5-5.1); Total Protein 8.4 gm/dl (6.0-8.3)
[2023-08-16] MEDS: SODIUM CHLORIDE 0.9% 1,000 ML IV SCH (20:58)
[2023-08-16 21:06] LABS: Hemoglobin 13.9 g/dl (14.0-18.0); Mean Corpuscular Hemoglobin 30.2 pg (25.0-34.0); Mean Corpuscular Hgb Conc 33.1 g/dL (32.0-36.0); Mean Corpuscular Volume 91.1 fL (80.0-100.0); Mean Platelet Volume 10.3 fL (9.4-12.4); Platelet Count 118 K/uL (130-400); RDW Coefficient of Variation 14.1 % (11.5-14.5); RDW Standard Deviation 47.3 fL (36.4-46.3); Red Blood Count 4.61 M/uL (4.70-6.10); White Blood Count 6.65 K/ul (4.8-10.8)
[2023-08-16] MEDS: OPTIRAY 320 100ml IV ONE (21:24)
[2023-08-16 22:31] LABS: Appearance Urine Clear (Clear); Bacteria Urine Automated None Seen (None Seen); Bilirubin Urine Negative (Negative); Blood Urine Trace (Negative); Cast Urine Automated 0-2 /lpf (0-2); Color Urine Yellow; Epithelial Cell Urine Auto 0-2 /hpf (0-2); Glucose Urine UA Negative (Negative); Ketones Urine Negative (Negative); Leukocyte Esterase Urine Negative (Negative); Nitrite Urine Negative (Negative); Protein Urine 1+ (Negative); RBC Urine Automated 0-2 /hpf (0-2); Specific Gravity Urine 1.025 (1.000-1.030); Urobilinogen Urine Negative (Negative); WBC Urine Automated 0-5 /hpf (0-5); pH Urine 5.5 (4.5-7.5)
[2023-08-16 22:37] LABS: ALC (manual) 4.99 K/uL (1.2-3.4); Basophils # (manual) 0.27 K/uL (0-0.2); Basophils % (manual) 4 %; Lymphocytes # (manual) 3.33 K/uL (1.2-3.4); Lymphocytes % (manual) 50 %; Monocytes % (manual) 3 %; Neutrophils % (manual) 18 %; Reactive Lymphocytes # (manual) 1.66 K/uL; Reactive Lymphocytes % (manual) 25 %
--- NOTE | 2023-08-16 22:45 | CT Scan Report ---
CT abd pelvis IV con only CLINICAL HISTORY: Back pain, elevated lipase TECHNIQUE: Helical axial images of the abdomen and pelvis were obtained and displayed. Automated dose lowering techniques and/or adjustment according to patient size were utilized for this exam. This e xam was performed with intravenous contrast. CT DOSE: 935.24 mGy.cm COMPARISON: Comparison is made to CT abdomen pelvis 11/03/2021 FINDINGS: Lower chest: No acute abnormality. Liver: Unremarkable. No focal lesions are seen. Gallbladder and biliary tree: Minimal pericholecystic fluid is seen without thickening of the gallbla dder wall. No intra- or extrahepatic biliary ductal dilation. Pancreas: Unremarkable, no focal lesions. Spleen: Unremarkable. Adrenals: Unremarkable. Kidneys and ureters: Renal cysts are seen. Bladder: Prominently distended bladder is seen. Reproductive organs: Unremarkable. 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 The appendi x is normal. No evidence of bowel obstruction. Lymph nodes Retroperitoneal: Unremarkable. Pelvic: Unremarkable. Mesenteric: Unremarkable. Previously noted right mesenteric lymph nodes are no longer noted to be pro minently enlarged. Peritoneum: Normal. Vessels: Mild atherosclerotic disease is seen. Abdominal wall: Unremarkable. Bones: Minimal degenerative changes are seen. IMPRESSION: 1. No acute abnormalities. In particular no CT evidence of pancreatitis despite elevated lipase. No peripancreatic fluid collections are seen. 2. Pericholecystic fluid is nonspecific but there is no CT evidence of wall thickening to suggest ac jeison cholecystitis. If there is clinical concern, ultrasound could be performed. ACT 112: Negative or not required by law. Electronically signed by: Giorgi Carlson M.D. 08/16/2023 10:42 PM
[2023-08-16] MEDS: BUPRENORPHINE/NALOXONE 2/0.5MG TAB PO ONE (23:11)
--- OUTSIDE RECORDS SUMMARY | 2023-08-16 23:19 | External Medical Summary | Summary of Care ---
Author Name Unknown Organization [facility] Address [address] [facility] [place] [address] Phone [phone] Care Team Providers Care Cemetery Manager Name Role Phone JensenShane matamoros Primary Care Provider [phone] Reason for Visit * Reason Comments Outpatient Testing Encounter Details Date Type Department Care Team (Late st Contact Info) Description 03/18/2023 8:00 AM EST Laboratory Laboratory [facility] [place] [address] [facility] [place] [id number] [facility] [address] [facility] [place] [id number] Hepatitis C virus infection cured after antiviral drug therapy; Screening for viral disease Allergies No known active allergiesdocumented as of this encounter (statuses as of 03/18/2023) Medications Medication Sig Dispensed Refills Start Date End Date Status Buprenorphine HCl-Naloxone HCl 8-2 MG Sublingual Tablet Sublingual (Suboxone)Indicatio ns:Opioid dependence, uncomplicated (HCC) TAKE 2 SUBLINGUAL TABLETS DAILY 0 11/22/2021 Active Multivitamin Adult (Minerals) Oral Tablet Take by mouth . 0 Active Apixaban 5 MG Oral Tablet (Eliquis)Indication s:History of pulmonary embolism Take by mouth 1 Tablet in the morning AND 1 Tablet before bedtime. 60 Tablet 4 11/27/2021 Active Additional Information Patient not taking.Reported on 07/15/2022 Gabapentin 600 MG Oral Tablet (Neurontin)Indicati ons:Neuropathy, alcoholic (HCC) Take by mouth 1 Tablet in the morning AND 1 Tablet at noon AND 1 Tablet before bedtime. 90 Tablet 5 11/27/2021 Active LORazepam 1 MG Oral Tablet (Ativan)Indications :Alcohol withdrawal syndrome, with delirium (HCC) Take by mouth 0.5 Tablets 2 times a day as needed for Anxiety. 20 Tablet 0 11/27/2021 Active Additional Information Patient not taking.Reported on 07/15/2022 Pantoprazole Sodium 40 MG Oral Tablet Delayed Release (Protonix)Indicatio ns:Gastroesophageal reflux disease without esophagitis take 1 tablet by mouth before breakfast 30 Tablet 5 11/27/2021 Active Thiamine HCl 100 MG Oral Tablet (vitamin B-1)Indications:Alc ohol withdrawal syndrome, with delirium (HCC) Take by mouth 2 Tablets in the morning. 60 Tablet 11/27/2021 Active Nicotine 21 MG/24HR Transdermal Patch 24 Hour (Nicoderm CQ) apply 1 patch TRANSDERMALLY once daily 28 Patch 1 01/16/2022 Active Magnesium Oxide 400 (240 Mg) MG Oral Tablet (Mag-Ox)Indications :Alcohol withdrawal syndrome, with delirium (HCC) take 1 tablet by mouth every morning 30 Tablet 5 06/03/2022 Active Folic Acid 1 MG Oral TabletIndications:A lcohol withdrawal syndrome, with delirium (HCC) take 1 tablet by mouth every morning 30 Tablet 5 06/03/2022 Active documented as of this encounter (statuses as of 03/18/2023) Active Problems Problem Noted Date Diagnosed Date Hepatitis C virus infection cured after antiviral drug therapy 07/02/2022 Overview: HCV treated; SVR confirmed 07/01/2022 Opioid dependence, uncomplicated 11/27/2021 History of alcohol abuse 11/27/2021 History of pulmonary embolism 11/27/2021 Neuropathy, alcoholic 11/27/2021 Gastroesophageal reflux disease without esophagi tis 11/27/2021 documented as of this encounter (statuses as of 03/18/2023) Resolved Problems Problem Noted Date Diagnosed Date Resolved Date Chronic hepatitis C without hepatic coma 11/27/2021 07/02/2022 Overview: HCV treated; SVR confirmed 07/01/2022 documented as of this encounter (statuses as of 03/18/2023) Social History Tobacco Use Types Packs/Day Years Used Date Smoking Tobacco: Former Cigarettes Smokeless Tobacco: Never Alcohol Use Standard Drinks/Week Comments Not Currently 0 (1 standard drink = 0.6 oz pur e alcohol) Sex and Gender Information Value Date Recorded Sex Assigned at Not on file Gender Identity Not on file Sexual Orientation Not on file Job Start Date Occupation Industry Not on file Not on file Not on file documented as of this encounter Plan of Treatment Pending Results Name Type Priority Associated Diagnoses Date /Time HEPATITIS C RNA QUANTITATIVE Lab Routine Hepatitis C virus infection cured after antiviral drug therapy Screening for viral disease 03/18/2023 9:11 AM EST Health Maintenance Due Date Last Done Comments Hepatitis B (1 of 3 - 3-dose series) 1984 COVID-19 Vaccine (#1) 01/20/1985 Pneumococcal Vaccine: Pediatrics (0 to 5 Years) and At-Risk Patients (6 to 64 Years) (1 - PCV) 1990 Depression Screening 1996 HIV Screening 07/21/1999 Influenza Vaccine (FLU shot) (#1) 2022 Diabetes Screening 12/11/2024 12/11/2021, 0 11/22/2021, 11/15/2021, Additional history exists DTaP,Tdap,and Td Vaccines (2 - Td or Tdap) 09/05/2030 09/05/2020 GARDASIL-HPV IMMUNIZATION SERIES Aged Out No longer eligible based on patient's age to complete this topic MENINGOCOCCAL (MENACTRA/MENVEO) Aged Out No longer eligible based on patient's age to complete this topic documented as of this encounter Medical Devices Not on filedocumented as of this encounter Visit Diagnoses Diagnosis Hepatitis C virus infection cured after antiviral drug therapy Screening for viral disease Special screening examination for unspecified viral disease documented in this encounter Care Teams Cemetery Manager Relationship Specialty Start Date End Date Shane Smith DO [address] [place] [address] PCP - General Family Medicine 12/26/21 documented as of this encounter
--- OUTSIDE RECORDS SUMMARY | 2023-08-16 23:19 | External Medical Summary ---
Author Name Unknown Address Unknown Organization [id number]:[facility] [place] [address] [facility] [address] Laboratory Report Ordering Provider Test Date Status LJ DASILVA 03/18/2023 09:11:11 Final Observation Date Value Abnormality Reference (Units) Status Hep C RNA viral load 03/18/2023 09:11:11 Negative. No HCV RNA detected. Negative. No HCV RNA detected. Final Genetic variant clinical significance [Interpretation] in Blood or Tissue by Molecular genetics method 03/18/2023 09:11:11 The HCV assay is an in vitro nucleic acid amplification test for both the detection and quantitation of hepatitis C virus (HCV) RNA, in human EDTA plasma, of HCV antibody positive or HCV-infected individuals. Specimens containing HCV genotypes 1 to 6 are validated for detection and quantitation in the assay. This assay is intended for use as an aid in the diagnosis of HCV infection in the following populations: individuals who are HCV antibody-positive and with evidence of liver disease, individuals suspected to be actively infected with HCV antibody evidence, and individuals at risk for HCV infection with antibodies to HCV. Detection of HCV RNA indicates that the virus is replicating and therefore is evidence of active infection. This assay is intended for use as an aid in the management of HCV-infected patients undergoing anti-viral therapy. The assay can be used to quantify HCV RNA in serum of patients with chronic HCV infection (HCV antibody-positive), monitor disease progression in chronic HCV infection and response to antiviral therapy and determine cure and detection of relapse after completion of antiviral therapy. The results must be interpreted within the context of all relevant clinical and laboratory findings. This assay has not been approved for use as a screening test for the presence of HCV in blood or blood products. Final Genetic variant clinical significance [Interpretation] in Blood or Tissue by Molecular genetics method 03/18/2023 09:11:11 Final Additional comments [RFC] 03/18/2023 09:11:11 The HCV assay is an in vitro nucleic acid amplification test using an automated system for specimen processing, amplification and detection. Detection of antibodies to HCV (anti-HCV) indicates prior exposure to hepatitis C but does not distinguish between cleared or active infection (i.e where the virus is still replicating). Detection of HCV RNA with the detection of anti-HCV identifies an active hepatitis C infection. The results of HCV RNA testing together with other biochemical and clinical information, may be used to confirm an active HCV infection, measure the level of virus in the blood and assist in HCV prevention counseling, medical care and treatment decision making. The test can quantitate HCV RNA over the reportable range of 15-100,000,000 IU/mL (1.18 log to 8.00 log IU/mL). Final Additional comments [RFC] 03/18/2023 09:11:11 Final Additional comments [RFC] 03/18/2023 09:11:11 The assay was verified and performance characteristics determined by the [facility] at [facility]. This test is used for clinical purposes. Final FDA package insert References section 03/18/2023 09:11:11 1. Cabezas P, Shaggy C, Richard S: How to Use Virological Tools for the Optimal Management of Chronic Hepatitis C. Liver Int 2011;31 Suppl 1:3-12. Final FDA package insert References section 03/18/2023 09:11:11 2. Centers for Disease Control and Prevention. Testing for HCV Infection: an Update of Guidance for Clinicians and Laboratorians. MMWR Morb Mortal Wkly Rep 2013;62(18):362-365. Final FDA package insert References section 03/18/2023 09:11:11 3. [place] [employer] for the Study of Liver Diseases and Infectious Diseases Society of [place]: HCV Guidance: Recommendations for Testing, Managing, and Treating Hepatitis C. Accessed September 27, 2016. Available at www.hcvguidelines.org /dqbh-kocngq-oiow Final FDA package insert References section 03/18/2023 09:11:11 Final Performing Location [facility] [place] [address] [facility] [address]
--- OUTSIDE RECORDS SUMMARY | 2023-08-16 23:19 | External Medical Summary | Summary of Care ---
Author Name Unknown Organization [facility] Address [address] [place] [address] Phone [phone] Care Team Providers Care Environmental Services Manager Name Role Phone JensenShane matamoros Primary Care Provider [phone] Encounter Details Date Type Department Care Team (Late st Contact Info) Description 03/13/2023 Telephone Hepatology, [place] [address] [place] [address] Alyx Rajan, [facility] [address] [place] [address] Allergies No known active allergiesdocumented as of this encounter (statuses as of 03/13/2023) Medications Medication Sig Dispensed Refills Start Date [...] tablet by mouth before breakfast 30 Tablet 11/27/2021 Active Thiamine HCl 100 MG Oral [...] tablet by mouth every morning 30 Tablet 06/03/2022 Active Folic Acid 1 MG Oral TabletIndications:A lcohol withdrawal syndrome, with delirium (HCC) take 1 tablet by mouth every morning 30 Tablet 06/03/2022 Active documented as of this encounter (statuses as of 03/13/2023) Active Problems Problem Noted Date Diagnosed Date Hepatitis C virus infection cured after antiviral drug therapy 07/02/2022 Overview: HCV treated; SVR confirmed 07/01/2022 Opioid dependence, uncomplicated 11/27/2021 History of alcohol abuse 11/27/2021 History of pulmonary embolism 11/27/2021 Neuropathy, alcoholic 11/27/2021 Gastroesophageal reflux disease without esophagi tis 11/27/2021 documented as of this encounter (statuses as of 03/13/2023) Resolved Problems Problem Noted Date Diagnosed Date Resolved Date Chronic hepatitis C without hepatic coma 11/27/2021 07/02/2022 Overview: HCV treated; SVR confirmed 07/01/2022 documented as of this encounter (statuses as of 03/13/2023) Social History Tobacco Use Types Packs/Day Years [...] on file documented as of this encounter Miscellaneous Notes * Telephone Encounter - Alyx Rajan [facility] - 03/13/2023 5:29 PM EST I received a voicemail from the patient stating he is going to be in the [place] area and he was requesting to have a repeat viral load drawn. Lab ordered: HCV RNA quant Alyx Rajan, Rose MaryD, BCPS Clinical Pharmacist, Hepatology 03/13/2023 5:30 PM documented in this encounter Plan of Treatment Scheduled Orders Name Type Priority Associated Diagnoses Orde r Schedule HEPATITIS C RNA QUANTITATIVE Lab Routine Hepatitis C virus infection cured after antiviral drug therapy Screening for viral disease Expected: 03/13/2023, Expires: 03/13/2024 Health Maintenance Due Date Last Done Comments [...] C virus infection cured after antiviral drug therapy- Primary Screening for viral disease Special screening examination for unspecified viral disease documented in this encounter Care Teams Environmental Services Manager Relationship Specialty Start Date End Date Shane Smith DO [address] [place] [address] PCP - General Family Medicine 12/26/21 documented as of this encounter
--- OUTSIDE RECORDS SUMMARY | 2023-08-16 23:19 | External Medical Summary | Summary of Care ---
Author Name Unknown Organization [facility] Address [address] [place] [address] Phone [phone] Care Team Providers Care Hand Trucker Name Role Phone JensenShane matamoros Primary Care Provider [phone] Reason for Visit * Reason Comments Dosage Adjustment Via Phone (anticoag Cl inic) Status Check Encounter Details Date Type Department Care Team (Late st Contact Info) Description 03/24/2023 7:00 AM [facility] Hepatology, [place] [address] [place], [place] [id number] [place], Pharmacist Hepatology [address] [place], [place] [id number] Hepatitis C virus infection cured after antiviral drug therapy* Allergies No known active allergiesdocumented as of this encounter (statuses as of 03/24/2023) Medications Medication Sig Dispensed Refills Start Date [...] as of this encounter (statuses as of 03/24/2023) Active Problems Problem Noted Date Diagnosed Date Hepatitis C virus infection cured after antiviral drug therapy 07/02/2022 Overview: HCV treated; SVR confirmed 07/01/2022 Opioid dependence, uncomplicated 11/27/2021 History of alcohol abuse 11/27/2021 History of pulmonary embolism 11/27/2021 Neuropathy, alcoholic 11/27/2021 Gastroesophageal reflux disease without esophagi tis 11/27/2021 documented as of this encounter (statuses as of 03/24/2023) Resolved Problems Problem Noted Date Diagnosed Date Resolved Date Chronic hepatitis C without hepatic coma 11/27/2021 07/02/2022 Overview: HCV treated; SVR confirmed 07/01/2022 documented as of this encounter (statuses as of 03/24/2023) Social History Tobacco Use Types Packs/Day Years [...] on file documented as of this encounter Progress Notes * Alyx Rajan RP - 03/24/2023 9:23 AM EST MTM Hepatitis C Treatment Follow-Up Patient Name: Tomás Arellano Post-SVR follow up History of Current Illness: Tomás Arellano is a 37 year old male last seen in the Hepatology clinic on 07/15/2022. Patient has completed Hepatitis C treatment. This is a follow-up phone call to the patient to review lab after SVR12. Treatment Overview: Physician initiating treatment: Gurinder Hood MD/Nilsa Villalobos, Treatment Plan: Mavyret for 8 weeks. Started Treatment: 2021 Completed Therapy: 2022 SVR Confirmed: 07/01/2022 Were you able to contact the patient? Yes. Review of Recent Lab Results: Latest Reference Range & Units 12/11/21 12:10 *Pretreatment 02/18/22 11:11 *4 Week Lab 07/01/22 11:37 *SVR Labs 03/18/23 09:11 *Post SVR Lab HEPATITIS C RNA QUANT 149,000 Negative Negative Negative MT Plan: The patient remains aviremic. Congratulated Mr. Arellano on remaining Hepatitis C free! We discussed the risk factors for reinfection and he understands there is no immunity to the virus. He also expressed understanding that his antibody will always be positive, and a repeat viral load is necessary if there is ever a question of reinfection. No further follow-up necessary at this time. Alyx Rajan, PharmD, BCPS Clinical Pharmacist, Hepatology 03/24/2023 9:58 AM documented in this encounter Plan of Treatment Health Maintenance Due Date Last Done Comments [...] infection cured after antiviral drug therapy- Primary documented in this encounter Care Teams Hand Trucker Relationship Specialty Start Date End Date Shane Smith DO [address] [place] [address] PCP - General Family Medicine 12/26/21 documented as of this encounter
--- NOTE | 2023-08-17 00:47 | History & Physical Report ---
Date of Service August 17, 2023 Assessment & Plan (1) Alcohol abuse: Plan: Patient here for supervised alcohol withdrawal. Patient prior dts and seizures with withdrawal. Patient a current every day drinker. Had a fifth of vodka from evening 08/14 to AM 08/15. Blood alcohol > 500 on admission. Patient fully alert and oriented. Anticipate significant withdrawal. Patient may end up needing phenobarb. Patient will need CM for arrangement of inpatient rehab when out of the window for withdrawal. Gabapentin load with subsequent taper Librium taper AWSS with IV ativan admit to PCU/Tele thiamine/folate refeeding labs ordered nicotine patch ordered (2) Opioid use disorder in remission: Plan: Patient stable on Suboxone 8-2 mg SL BID. Continue while inpatient. (3) Elevated lipase: Plan: Elevated lipase without signs of pancreatitis on CT. Would start with CLD and advance as tolerated. IVF @ 125 mL/hr of LR. (4) History of alcohol withdrawal delirium: (5) History of seizure due to alcohol withdrawal: Plan Code status: full DVT ppx: Lovenox SQ FENGI: CLD, advance as tolerated Dispo: PCU/tele History of Present Illness Chief Complaint: alcohol withdrawal Primary Care Provider: Cesar Harper, DO 38 y/o male with a PMHx of substance use disorder on Suboxone and alcohol use disorder presents for medically supervised withdrawal. Patient believes he last drink was the morning of 08/15. He drank a fifth of vodka from 08/14-08/15. Patient wants to get sober. Knows if he goes home he will drink. Current every day drinker. Has gone through severe withdrawal in the past with dts and seizures. He was also have left sided flank pain which he was concerned was related to his pancreas. Patient does not currently have withdrawal symptoms. Would like a nicotine patch. No f/c/CP/SOB/abdominal pain/nausea or vomiting. Allergies Allergy/AdvReac Type Severity Reaction Status Date / Time No Known Allergies Allergy Unverified 12/05/21 09:56 Home Medications Medication Instructions Recorded Confirmed Type buprenorphine 8 mg-naloxone 2 mg 1 tab sublingual BID 08/17/23 08/17/23 History sublingual tablet folic acid 1 mg tablet 1 mg PO DAILY 08/17/23 08/17/23 History magnesium oxide 400 mg PO DAILY 08/17/23 08/17/23 History multivitamin 1 tab PO DAILY 08/17/23 08/17/23 History vitamin B complex 2 tab PO DAILY 08/17/23 08/17/23 History Past Med/Surg History Problem List Elevated lipase Opioid use disorder in remission History of seizure due to alcohol withdrawal History of alcohol withdrawal delirium Alcohol abuse (Acute) Hospital discharge follow-up (Acute) Sinus tachycardia Hyponatremia Pulmonary embolus (Chronic) Elevated sed rate Positive Lyme disease serology Vitamin D deficiency Neuropathy Physical deconditioning Wheeze Hepatitis C Acute metabolic encephalopathy Malnutrition due to starvation Obesity (BMI 30-39.9) Delirium tremens Alcohol withdrawal (Acute) Cellulitis of right leg (Acute) Electrolyte abnormality Tobacco dependence Alcohol withdrawal seizure (Acute) Thrombocytopenia Hypophosphatemia SIRS (systemic inflammatory response syndrome) Alcoholic hepatitis Opioid use disorder Alcohol use disorder HTN (hypertension), benign BESSIE (acute kidney injury) Hyponatremia (Acute) Acute renal failure (Acute) Hypokalemia (Acute) Alcohol withdrawal (Acute) Engages in vaping Hypokalemia High serum osmolar gap (Acute) Medical History Alcohol use disorder Alcohol withdrawal seizure Bilateral pneumonia HTN (hypertension), benign Obesity (BMI 30-39.9) Opioid use disorder Surgical History No pertinent past surgical history Family History Other No pertinent family history Social History Smoking Status: Never smoker Tobacco Type: Cigarettes Cigarettes Per Day: 15; Second Hand Exposure: Yes; Do You Dip or Chew Tobacco: No; Hx Alcohol Use: Yes Alcohol type: beer, wine and hard liquor Hx Substance Use: No Preferred Language: Tajik Communication Ability: Effective Proposal Rep Required: No Beliefs That Will Affect Care: None marital status: Single Current Living Situation: Alone How many Children do You have: 0 Other Information That Helps Us Care for You: No Feels Safe at Home: Yes Safety Concerns: Feels Safe At This Time Assistive Devices: Denture - Upper and Denture - Lower Review of Systems 2 Review of Systems: See HPI Physical Exam 2 Physical Exam: Gen: well appearing male patient in NAD HEENT: AT NC MMM no scleral icterus Resp: CTAB no wheezing no increased work of breathing CV: RRR no m/r/g clinically well perfused Abd: soft, non-tender, non-distended +BS MSK: no obvious deformities Skin: no rashes or bruising Neuro: alert and oriented, no tremor, no asterixis Psych: appropriate mood and affect Results & Data Results & Data Vital Signs (Past 12 Hours) Vital Signs Temp Pulse Pulse Resp BP BP Pulse Ox 08/16/23 23:10 65 18 130/84 95 08/16/23 20:08 36.7 C 107 H 20 161/74 H 96 O2 Del Method 08/16/23 23:10 Room Air 08/16/23 20:08 Room Air Laboratory Results 08/16/23 20:21 08/16/23 20:21 Diagnostic Findings Abdomen/Pelvis CT 08/16/23 21:00 FINDINGS: Lower chest: No acute abnormality. Liver: Unremarkable. No focal lesions are seen. Gallbladder and biliary tree: Minimal pericholecystic fluid is seen without thickening of the gallbladder wall. No intra- or extrahepatic biliary ductal dilation. Pancreas: Unremarkable, no focal lesions. Spleen: Unremarkable. Adrenals: Unremarkable. Kidneys and ureters: Renal cysts are seen. Bladder: Prominently distended bladder is seen. Reproductive organs: Unremarkable. 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 The appendix is normal. No evidence of bowel obstruction. Lymph nodes Retroperitoneal: Unremarkable. Pelvic: Unremarkable. Mesenteric: Unremarkable. Previously noted right mesenteric lymph nodes are no longer noted to be prominently enlarged. Peritoneum: Normal. Vessels: Mild atherosclerotic disease is seen. Abdominal wall: Unremarkable. Bones: Minimal degenerative changes are seen. IMPRESSION: 1. No acute abnormalities. In particular no CT evidence of pancreatitis despite elevated lipase. No peripancreatic fluid collections are seen. 2. Pericholecystic fluid is nonspecific but there is no CT evidence of wall thickening to suggest acute cholecystitis. If there is clinical concern, ultrasound could be performed. Supervising Physician Co-Signing Physician Notes Attending addendum: I have physically seen this patient, have supervised the medical residents activities, and agree with the H&P unless as otherwise noted. Assessment and Plan: Alcohol intoxication/alcohol abuse/history of alcohol withdrawal seizures- Admit to PCU telemetry Alcohol level 526 on admission AWSS protocol with oral gabapentin, Librium and IV lorazepam Expect that patient will probably need phenobarbital if he does not leave AMA first Patient is relatively coherent and communicative had a high alcohol level, indicating chronicity Received 1 L normal saline in the ED, continue IV fluids as noted History of opioid use- Continue Suboxone Tobacco use disorder- Nicotine patch ordered Pancreatitis- Mildly elevated lipase at 401 Follow serially Resident Activity Tracking Resident Involvement: Resident Care Provided Care Provided: Adult Hospital Medicine
[2023-08-17] MEDS ORDERED: GABAPENTIN 1200MG ALCOHOL WITHDRAWAL LOAD PO STA (02:03)
[2023-08-17] MEDS ORDERED: Ativan PO Alcohol Withdrawal--Active Protocol PO PRN (02:03)
[2023-08-17] MEDS ORDERED: POLYETHYLENE (MIRALAX) 17 GM PACK PO PRN (02:03)
[2023-08-17] MEDS ORDERED: chlordiazePOXIDE ALCOHOL WITHDRAWL 50MG PO STA (02:03)
[2023-08-17] MEDS ORDERED: LORazepam 1 MG TAB PO PRN ×2 (02:03)
[2023-08-17] MEDS: LACTATED RINGER'S 1,000 ML IV SCH (02:29)
[2023-08-17] MEDS: chlordiazePOXIDE HCl 25 MG CAP PO SCH (02:40)
[2023-08-17] MEDS: GABAPENTIN 600 MG TAB PO ONE (03:24)
[2023-08-17] MEDS: NICOTINE 21 MG/24 HR TDSY TD SCH (03:52)
[2023-08-17 05:07] LABS: Albumin Globulin Ratio 1.6 (0.9-2); Albumin Level 4.1 gm/dl (3.4-5.0); BUN Creatinine Ratio 15.4 (10-20); Bilirubin,Total 0.7 mg/dl (0.2-1.0); Creatinine Clr Calc Pharmacy 129.7 ml/min; Est GFR (Non-African American) 122.6 ml/min; Globulin 2.5 gm/dl (2.5-4.0); Magnesium 1.7 mg/dl (1.7-2.4); Potassium 3.6 mmol/L (3.5-5.1); Total Protein 6.6 gm/dl (6.0-8.3)
[2023-08-17 05:19] LABS: Hematocrit (blood only) 34.8 % (42.0-52.0); Hemoglobin 11.5 g/dl (14.0-18.0); Mean Corpuscular Hemoglobin 29.9 pg (25.0-34.0); Mean Corpuscular Volume 90.6 fL (80.0-100.0); Mean Platelet Volume 10.8 fL (9.4-12.4); Platelet Count 75 K/uL (130-400); RDW Coefficient of Variation 14.1 % (11.5-14.5); RDW Standard Deviation 46.9 fL (36.4-46.3); Red Blood Count 3.84 M/uL (4.70-6.10); White Blood Count 3.51 K/ul (4.8-10.8)
[2023-08-17 05:26] LABS: Basophils # (auto) 0.04 K/uL (0.00-0.20); Basophils % (auto) 1.1 %; Eosinophils # (auto) 0.08 K/uL (0.00-0.50); Eosinophils % (auto) 2.3 %; Lymphocytes # (auto) 2.19 K/uL (1.20-3.40); Lymphocytes % (auto) 62.4 %; Monocytes # (auto) 0.29 K/uL (0.11-0.59); Monocytes % (auto) 8.3 %; Neutrophils # (auto) 0.91 K/uL (1.40-6.50); Neutrophils % (auto) 25.9 %
[2023-08-17] MEDS: THIAMINE HCL 100 MG in SYRINGE 9 ML IV SCH (08:18)
[2023-08-17] MEDS: BUPRENORPHINE/NALOXONE 2/0.5MG TAB SL SCH (08:18)
[2023-08-17] MEDS: FOLIC ACID 1 MG in SYRINGE 9.8 ML IV SCH (08:18)
[2023-08-17] MEDS ORDERED: FOLIC ACID 1 MG TAB PO SCH (09:00)
[2023-08-17] MEDS: GABAPENTIN 600 MG TAB PO SCH ×2 (09:35→20:50)
[2023-08-17] MEDS: ENOXAPARIN INJ 40 MG/0.4 ML SYR SQ SCH (09:35)
[2023-08-17] MEDS: LORazepam 1 MG TAB PO PRN (10:54)
[2023-08-17] MEDS ORDERED: Ativan IV Alcohol Withdrawal--Active Protocol IV PRN (12:47)
[2023-08-17] MEDS: LORazepam 1 MG in SYRINGE 0.5 ML IV PRN (13:09)
--- NOTE | 2023-08-17 15:25 | Communication Note ---
Date of Service: August 17, 2023 Please refer to the H&P dictated earlier this morning for details of presentation on admission. In brief, this is a 38-year-old patient with prior history of DTs and alcohol withdrawal seizures presented to the ER because he wants to get sober in a supervised setting. Patient is being treated with gabapentin, Librium and Ativan. Ativan has been switched to IV.
[2023-08-17] MEDS: LORazepam 3 MG in SYRINGE 1.5 ML IV PRN (16:20)
[2023-08-17] MEDS: LORazepam 3 MG in SYRINGE 1.5 ML IV STA (17:58)
[2023-08-17] MEDS: LORazepam 2 MG in SYRINGE 1 ML IV PRN (19:31)
--- NOTE | 2023-08-17 19:37 | Billing Data ---
Date of Service August 17, 2023 Coding Level of Care Code 95769 INT INP/OBS CARE
--- NOTE | 2023-08-17 22:36 | Electrocardiogram Report ---
Test Reason : Blood Pressure : / mmHG Vent. Rate : 054 BPM Atrial Rate : 054 BPM P-R Int : 148 ms QRS Dur : 100 ms QT Int : 462 ms P-R-T Axes : 022 064 054 degrees QTc Int : 438 ms Sinus bradycardia Cannot rule out Anterior infarct , age undetermined ST elevation, consider early repolarization, pericarditis, or injury Abnormal ECG When compared with ECG of 06-NOV-2021 09:21, Vent. rate has decreased BY 48 BPM T wave amplitude has increased in Inferior leads ST more elevated in Inferolateral leads Confirmed by Nasim Martinez ([id number]) on 08/17/2023 10:35:53 PM Referred By: Cesar Harper Confirmed By:Nasim Martinez
[2023-08-18] MEDS: chlordiazePOXIDE HCl 25 MG CAP PO SCH (03:25)
[2023-08-18 06:54] LABS: Basophils # (auto) 0.04 K/uL (0.00-0.20); Basophils % (auto) 1.1 %; Eosinophils # (auto) 0.17 K/uL (0.00-0.50); Eosinophils % (auto) 4.8 %; Hematocrit (blood only) 43.5 % (42.0-52.0); Hemoglobin 14.4 g/dl (14.0-18.0); Lymphocytes # (auto) 1.39 K/uL (1.20-3.40); Lymphocytes % (auto) 39.2 %; Mean Corpuscular Hemoglobin 29.9 pg (25.0-34.0); Mean Corpuscular Hgb Conc 33.1 g/dL (32.0-36.0); Mean Corpuscular Volume 90.4 fL (80.0-100.0); Mean Platelet Volume 10.6 fL (9.4-12.4); Monocytes # (auto) 0.35 K/uL (0.11-0.59); Monocytes % (auto) 9.9 %; Platelet Count 72 K/uL (130-400); RDW Coefficient of Variation 13.2 % (11.5-14.5); RDW Standard Deviation 43.8 fL (36.4-46.3); Red Blood Count 4.81 M/uL (4.70-6.10); White Blood Count 3.55 K/ul (4.8-10.8)
[2023-08-18 07:07] LABS: Albumin Globulin Ratio 1.5 (0.9-2); Albumin Level 4.2 gm/dl (3.4-5.0); BUN Creatinine Ratio 10.4 (10-20); Bilirubin,Total 1.8 mg/dl (0.2-1.0); Calcium 9.3 mg/dl (8.6-10.3); Creatinine Clr Calc Pharmacy 162.5 ml/min; Est GFR (African American) 140.3 ml/min; Globulin 2.8 gm/dl (2.5-4.0); Magnesium 1.7 mg/dl (1.7-2.4); Phosphorus 3.9 mg/dl (2.5-4.9); Potassium 3.5 mmol/L (3.5-5.1)
[2023-08-18] MEDS: LORazepam 1 MG in SYRINGE 0.5 ML IV PRN (08:20)
[2023-08-18] MEDS: PNEUMOCOCCAL VACCINE (PCV20) 20-VAL CONJ-DIP CRM/PF 0.5 ML SYR IM ONE (09:22)
--- NOTE | 2023-08-18 13:54 | Hospitalist Progress Note ---
Date of Service August 18, 2023 Assessment & Plan (1) Alcohol abuse: Plan: Patient here for supervised alcohol withdrawal. Everyday heavy drinker History of DTs and alcohol withdrawal seizures in the past Currently on Librium taper, Neurontin taper and getting Ativan IV per [facility] protocol. Admitted to PCU Banana bag Nicotine patch (2) Opioid use disorder in remission: Plan: Patient stable on Suboxone 8-2 mg SL BID. Continue while inpatient. (3) Elevated lipase: Plan: Elevated lipase without signs of pancreatitis on CT. Continue clear liquid diet Continue IV fluids (4) History of alcohol withdrawal delirium: (5) History of seizure due to alcohol withdrawal: Plan Code status: full DVT ppx: Lovenox SQ FENGI: CLD, advance as tolerated Dispo: PCU/tele Admission and Anticipated Discharge Date Admission Date: August 17, 2023 Subjective Patient is sleeping today. Arousable with loud verbal stimulus Review of Systems Review of Systems: Unobtainable due to cognitive status Physical Exam Physical Exam: General: Sleeping and snoring. Arousable with loud verbal stimulus. Drifts back to sleep during the conversation Heart: S1, S2/regular rate and rhythm, no murmur rubs or gallops Lungs: Clear to auscultation bilaterally. Normal effort Abdomen: Soft/nontender/nondistended. No hepatosplenomegaly Extremities: No clubbing/cyanosis. No edema Behavior: Appropriate, cooperative Results & Data Results & Data Vital Signs (Past 12 Hours) Vital Signs Temp Pulse Pulse Resp BP Pulse Ox O2 Del Method 08/18/23 12:25 36.8 C 72 150/96 H 99 Room Air 08/18/23 07:57 36.7 C 69 18 152/96 H 98 Room Air 08/18/23 07:09 68 08/18/23 03:23 36.9 C 60 16 165/94 H 98 Room Air PG Care Time/CCT Total # of Minutes Spent Total Time Spent with Patient: Total time spent is greater than 50% in coordination of care (as documented) at patient's floor/unit and/or counseling patient: Coding Level of Care Code 21003 SUB INP/OBS CARE 2/35MIN Diagnoses Alcohol abuse F10.10 Opioid use disorder in remission F11.91 Elevated lipase R74.8 History of alcohol withdrawal delirium Z86.59 History of seizure due to alcohol withdrawal Z87.898; Z86.59
[2023-08-19] MEDS: GABAPENTIN 600 MG TAB PO SCH (01:52)
[2023-08-19] MEDS: chlordiazePOXIDE HCl 25 MG CAP PO SCH (04:43)
[2023-08-19 07:06] LABS: Basophils # (auto) 0.04 K/uL (0.00-0.20); Basophils % (auto) 1.3 %; Eosinophils # (auto) 0.14 K/uL (0.00-0.50); Eosinophils % (auto) 4.6 %; Hematocrit (blood only) 44.2 % (42.0-52.0); Hemoglobin 14.8 g/dl (14.0-18.0); Immature Granulocytes # (auto) 0.01 K/uL (0.01-0.20); Immature Granulocytes % (auto) 0.3 %; Lymphocytes # (auto) 1.23 K/uL (1.20-3.40); Lymphocytes % (auto) 40.7 %; Mean Corpuscular Hemoglobin 30.4 pg (25.0-34.0); Mean Corpuscular Hgb Conc 33.5 g/dL (32.0-36.0); Mean Corpuscular Volume 90.8 fL (80.0-100.0); Mean Platelet Volume 10.8 fL (9.4-12.4); Monocytes # (auto) 0.22 K/uL (0.11-0.59); Monocytes % (auto) 7.3 %; Neutrophils # (auto) 1.38 K/uL (1.40-6.50); Neutrophils % (auto) 45.8 %; Platelet Count 68 K/uL (130-400); RDW Coefficient of Variation 13.2 % (11.5-14.5); Red Blood Count 4.87 M/uL (4.70-6.10); White Blood Count 3.02 K/ul (4.8-10.8)
[2023-08-19 07:27] LABS: Albumin Globulin Ratio 1.4 (0.9-2); Albumin Level 4.1 gm/dl (3.4-5.0); BUN Creatinine Ratio 7.9 (10-20); Bilirubin,Total 1.7 mg/dl (0.2-1.0); Calcium 9.1 mg/dl (8.6-10.3); Creatinine Clr Calc Pharmacy 172.8 ml/min; Est GFR (African American) 143.9 ml/min; Est GFR (Non-African American) 124.1 ml/min; Globulin 2.9 gm/dl (2.5-4.0); Magnesium 1.6 mg/dl (1.7-2.4); Phosphorus 4.2 mg/dl (2.5-4.9); Potassium 4.1 mmol/L (3.5-5.1)
[2023-08-19] MEDS: FOLIC ACID 1 MG TAB PO SCH (08:33)
[2023-08-19] MEDS: THIAMINE HCL 100 MG TAB PO SCH (08:33)
--- NOTE | 2023-08-19 13:26 | Hospitalist Progress Note ---
Date of Service August 19, 2023 Assessment & Plan (1) Alcohol abuse: Plan: Patient here for supervised alcohol withdrawal. Everyday heavy drinker History of DTs and alcohol withdrawal seizures in the past Currently on Librium taper, Neurontin taper and getting Ativan IV per [facility] protocol. Admitted to PCU Banana bag Nicotine patch (2) Opioid use disorder in remission: Plan: Patient stable on Suboxone 8-2 mg SL BID. Continue while inpatient. (3) Elevated lipase: Plan: Elevated lipase without signs of pancreatitis on CT. Continue clear liquid diet Continue IV fluids (4) History of alcohol withdrawal delirium: (5) History of seizure due to alcohol withdrawal: (6) Thrombocytopenia: Plan: Platelet count in the 60s. Most likely related to his alcohol use and liver problems No bleeding On Lovenox for DVT prophylaxis. Monitor CBC daily Plan Code status: full DVT ppx: Lovenox SQ FENGI: CLD, advance as tolerated Dispo: PCU/tele Admission and Anticipated Discharge Date Admission Date: August 17, 2023 Subjective Patient is still withdrawing. Requiring IV Ativan per [facility] protocol. Review of Systems Review of Systems: Unobtainable due to cognitive status Physical Exam Physical Exam: General: Sleeping, arousable. Still delirious. Heart: S1, S2/regular rate and rhythm, no murmur rubs or gallops Lungs: Clear to auscultation bilaterally. Normal effort Abdomen: Soft/nontender/nondistended. No hepatosplenomegaly Extremities: No clubbing/cyanosis. No edema Behavior: Appropriate, cooperative Results & Data Results & Data Vital Signs (Past 12 Hours) Vital Signs Temp Pulse Pulse Resp BP Pulse Ox O2 Del Method 08/19/23 11:12 37.1 C 65 19 159/101 H 97 Room Air 08/19/23 07:11 74 08/19/23 07:06 36.8 C 79 20 141/101 H 98 Room Air 08/19/23 06:45 36.6 C 77 18 145/102 H 99 Room Air 08/19/23 02:53 36.9 C 75 16 148/99 H 98 Room Air 08/19/23 02:00 36.8 C 75 16 146/98 H 96 Room Air Laboratory Results Abnormal lab results 08/19/23 Range/Units 06:25 WBC 3.02 L (4.8-10.8) K/ul Plt Count 68 L (130-400) K/uL Neut # (Auto) 1.38 L (1.40-6.50) K/uL BUN 5 L (6-23) mg/dl BUN/Creatinine Ratio 7.9 L (10-20) Magnesium 1.6 L (1.7-2.4) mg/dl Total Bilirubin 1.7 H (0.2-1.0) mg/dl PG Care Time/CCT Total # of Minutes Spent Total Time Spent with Patient: Total time spent is greater than 50% in coordination of care (as documented) at patient's floor/unit and/or counseling patient: Coding Level of Care Code 23696 SUB INP/OBS CARE 235MIN Diagnoses Alcohol abuse F10.10 Opioid use disorder in remission F11.91 Elevated lipase R74.8 History of alcohol withdrawal delirium Z86.59 History of seizure due to alcohol withdrawal Z87.898; Z86.59 Thrombocytopenia D69.6
[2023-08-19] MEDS ORDERED: PHENobarbital sodium 65 MG/ML VIAL IM PRN (20:17)
[2023-08-19] MEDS ORDERED: PHENobarbital sodium 130 MG/ML VIAL IM STA (20:17)
[2023-08-19] MEDS ORDERED: PHENobarbital PO Alcohol Withdrawal PO STA ×2 (20:17→20:51)
[2023-08-19] MEDS ORDERED: NICOTINE 7 MG/24 HR TDSY TD SCH (21:30)
[2023-08-19] MEDS: PHENobarbital sodium 65 MG/ML VIAL IV ONE (22:16)
[2023-08-19] MEDS: NICOTINE POLACRILEX 2 MG GUM MT PRN (22:28)
[2023-08-19] MEDS ORDERED: PHENobarbital sodium 130 MG/ML VIAL IM SCH (23:30)
[2023-08-19] MEDS: PHENobarbital sodium 65 MG/ML VIAL IV PRN (23:38)
[2023-08-20 07:00] LABS: Basophils # (auto) 0.04 K/uL (0.00-0.20); Basophils % (auto) 0.9 %; Eosinophils # (auto) 0.19 K/uL (0.00-0.50); Eosinophils % (auto) 4.1 %; Hematocrit (blood only) 42.2 % (42.0-52.0); Lymphocytes # (auto) 1.69 K/uL (1.20-3.40); Lymphocytes % (auto) 36.7 %; Mean Corpuscular Hgb Conc 33.2 g/dL (32.0-36.0); Mean Corpuscular Volume 90.4 fL (80.0-100.0); Mean Platelet Volume 10.9 fL (9.4-12.4); Monocytes # (auto) 0.55 K/uL (0.11-0.59); Neutrophils # (auto) 2.13 K/uL (1.40-6.50); Neutrophils % (auto) 46.3 %; Platelet Count 78 K/uL (130-400); RDW Coefficient of Variation 13.1 % (11.5-14.5); RDW Standard Deviation 42.7 fL (36.4-46.3); Red Blood Count 4.67 M/uL (4.70-6.10)
[2023-08-20 07:17] LABS: Albumin Globulin Ratio 1.4 (0.9-2); Albumin Level 4.1 gm/dl (3.4-5.0); BUN Creatinine Ratio 7.6 (10-20); Bilirubin,Total 1.4 mg/dl (0.2-1.0); Calcium 9.1 mg/dl (8.6-10.3); Creatinine Clr Calc Pharmacy 164.9 ml/min; Est GFR (African American) 141.2 ml/min; Est GFR (Non-African American) 121.8 ml/min; Globulin 2.9 gm/dl (2.5-4.0); Magnesium 1.5 mg/dl (1.7-2.4); Phosphorus 3.9 mg/dl (2.5-4.9); Potassium 3.5 mmol/L (3.5-5.1)
--- NOTE | 2023-08-20 11:51 | Hospitalist Progress Note ---
Date of Service August 20, 2023 Assessment & Plan (1) Alcohol abuse: Plan: Patient here for supervised alcohol withdrawal. Everyday heavy drinker History of DTs and alcohol withdrawal seizures in the past Currently on Librium taper, Neurontin taper and getting Ativan IV per CIWA protocol. Was started on phenobarb overnight Nicotine patch (2) Opioid use disorder in remission: Plan: Patient stable on Suboxone 8-2 mg SL BID. Continue while inpatient. (3) Elevated lipase: Plan: Elevated lipase without signs of pancreatitis on CT. Continue clear liquid diet Continue IV fluids (4) History of alcohol withdrawal delirium: (5) History of seizure due to alcohol withdrawal: (6) Thrombocytopenia: Plan: Platelet count in the 70s s. Most likely related to his alcohol use and liver problems No bleeding On Lovenox for DVT prophylaxis. Monitor CBC daily Plan Code status: full DVT ppx: Lovenox SQ FENGI: CLD, advance as tolerated Dispo: PCU/tele Admission and Anticipated Discharge Date Admission Date: August 17, 2023 Subjective Overnight, patient was scoring high on the CIWA score. Phenobarb was started. Per nurse, patient is fairly stable now. Review of Systems Review of Systems: Unobtainable due to cognitive status Physical Exam Physical Exam: General: Sleeping, arousable. Able to talk to me. AOx3 Heart: S1, S2/regular rate and rhythm, no murmur rubs or gallops Lungs: Clear to auscultation bilaterally. Normal effort Abdomen: Soft/nontender/nondistended. No hepatosplenomegaly Extremities: No clubbing/cyanosis. No edema Behavior: Appropriate, cooperative Results & Data Results & Data Vital Signs (Past 12 Hours) Vital Signs Temp Pulse Resp BP Pulse Ox Pulse Ox O2 Del Method 08/20/23 10:59 36.8 C 85 15 169/114 H 98 Room Air 08/20/23 08:27 37.1 C 80 12 159/111 H 98 Room Air 08/20/23 03:24 37.0 C 08/20/23 02:00 99 08/19/23 23:59 36.4 C L O2 Del Method 08/20/23 10:59 08/20/23 08:27 08/20/23 03:24 08/20/23 02:00 Room Air 08/19/23 23:59 Laboratory Results Abnormal lab results 06/05/24 Range/Units 06:06 WBC 4.60 L (4.8-10.8) K/ul RBC 4.67 L (4.70-6.10) M/uL Plt Count 78 L (130-400) K/uL Immature Gran # (Auto) 0.00 L (0.01-0.20) K/uL BUN 5 L (6-23) mg/dl BUN/Creatinine Ratio 7.6 L (10-20) Magnesium 1.5 L (1.7-2.4) mg/dl Total Bilirubin 1.4 H (0.2-1.0) mg/dl ALT 6 L (7-52) U/L PG Care Time/CCT Total # of Minutes Spent Total Time Spent with Patient: Total time spent is greater than 50% in coordination of care (as documented) at patient's floor/unit and/or counseling patient: Coding Level of Care Code 95762 SUB INP/OBS CARE 2/35MIN Diagnoses Alcohol abuse F10.10 Opioid use disorder in remission F11.91 Elevated lipase R74.8 History of alcohol withdrawal delirium Z86.59 History of seizure due to alcohol withdrawal Z87.898; Z86.59 Thrombocytopenia D69.6
[2023-08-20] MEDS: GABAPENTIN 600 MG TAB PO SCH (12:22)
[2023-08-20] MEDS: MAGNESIUM SULFATE / D5W 1 GM/100 ML BAG IV SCH (12:22)
[2023-08-20] MEDS: PHENobarbitaL 30 MG TAB PO SCH (14:04)
[2023-08-20] MEDS ORDERED: PHENobarbitaL 30 MG TAB PO SCH (14:30)
[2023-08-20] MEDS: MELATONIN 3 MG TAB PO PRN (21:39)
[2023-08-21 07:39] LABS: Alanine Aminotransferase 6 U/L (7-52); Albumin Globulin Ratio 1.3 (0.9-2); Albumin Level 4.1 gm/dl (3.4-5.0); Alkaline Phosphatase 49 U/L (34-104); BUN Creatinine Ratio 8.3 (10-20); Bilirubin,Total 1.1 mg/dl (0.2-1.0); Blood Urea Nitrogen 6 mg/dl (6-23); Calcium 9.2 mg/dl (8.6-10.3); Carbon Dioxide 24 mmol/L (21-32); Chloride 103 mmol/L (98-107); Creatinine Clr Calc Pharmacy 151.2 ml/min; Est GFR (African American) 136.2 ml/min; Est GFR (Non-African American) 117.5 ml/min; Globulin 3.1 gm/dl (2.5-4.0); Glucose 107 mg/dl (70-99(Fasting)); Phosphorus 4.1 mg/dl (2.5-4.9); Total Protein 7.2 gm/dl (6.0-8.3)
[2023-08-21 08:24] LABS: Basophils # (auto) 0.04 K/uL (0.00-0.20); Basophils % (auto) 0.9 %; Eosinophils % (auto) 4.3 %; Hematocrit (blood only) 42.5 % (42.0-52.0); Hemoglobin 14.1 g/dl (14.0-18.0); Immature Granulocytes # (auto) 0.02 K/uL (0.01-0.20); Immature Granulocytes % (auto) 0.4 %; Lymphocytes # (auto) 1.13 K/uL (1.20-3.40); Lymphocytes % (auto) 24.3 %; Mean Corpuscular Hemoglobin 30.2 pg (25.0-34.0); Mean Corpuscular Hgb Conc 33.2 g/dL (32.0-36.0); Mean Platelet Volume 10.8 fL (9.4-12.4); Monocytes # (auto) 0.54 K/uL (0.11-0.59); Monocytes % (auto) 11.6 %; Neutrophils # (auto) 2.72 K/uL (1.40-6.50); Neutrophils % (auto) 58.5 %; Platelet Count 96 K/uL (130-400); Red Blood Count 4.67 M/uL (4.70-6.10); White Blood Count 4.65 K/ul (4.8-10.8)
[2023-08-21 08:26] LABS: Magnesium 2.1 mg/dl (1.7-2.4); Potassium 4.2 mmol/L (3.5-5.1)
--- NOTE | 2023-08-21 12:52 | Hospitalist Progress Note ---
Date of Service August 21, 2023 Assessment & Plan (1) Alcohol abuse: Plan: Patient here for supervised alcohol withdrawal. Everyday heavy drinker History of DTs and alcohol withdrawal seizures in the past Completed Librium and Neurontin taper Now on phenobarb taper Nicotine patch (2) Opioid use disorder in remission: Plan: Patient stable on Suboxone 8-2 mg SL BID. Continue while inpatient. (3) Elevated lipase: Plan: Elevated lipase without signs of pancreatitis on CT. Continue clear liquid diet Continue IV fluids (4) History of alcohol withdrawal delirium: (5) History of seizure due to alcohol withdrawal: (6) Thrombocytopenia: Plan: Platelet count in the 90s. Most likely related to his alcohol use and liver problems No bleeding On Lovenox for DVT prophylaxis. Monitor CBC daily Plan Code status: full DVT ppx: Lovenox SQ FENGI: CLD, advance as tolerated Dispo: PCU/tele Admission and Anticipated Discharge Date Admission Date: August 17, 2023 Subjective Per nurse, patient has been stable fairly. Still on phenobarbital taper. Review of Systems Review of Systems: All systems reviewed & are unremarkable except as noted in Subjective Physical Exam Physical Exam: General: Sleeping, arousable. Able to talk to me. AOx3 Heart: S1, S2/regular rate and rhythm, no murmur rubs or gallops Lungs: Clear to auscultation bilaterally. Normal effort Abdomen: Soft/nontender/nondistended. No hepatosplenomegaly Extremities: No clubbing/cyanosis. No edema Behavior: Appropriate, cooperative Results & Data Results & Data Vital Signs (Past 12 Hours) Vital Signs Temp Pulse Resp BP Pulse Ox O2 Del Method 08/21/23 12:06 36.9 C 90 18 148/102 H 98 Room Air 08/21/23 08:15 36.7 C 91 H 20 144/101 H 99 Room Air 08/21/23 03:28 36.9 C 75 15 139/98 98 Room Air Laboratory Results Abnormal lab results 08/21/23 08/21/23 Range/Units 07:01 07:51 WBC 4.65 L (4.8-10.8) K/ul RBC 4.67 L (4.70-6.10) M/uL Plt Count 96 L (130-400) K/uL Lymph # (Auto) 1.13 L (1.20-3.40) K/uL BUN/Creatinine Ratio 8.3 L (10-20) Glucose 107 H (70-99(Fasting)) mg/dl Total Bilirubin 1.1 H (0.2-1.0) mg/dl ALT 6 L (7-52) U/L PG Care Time/CCT Total # of Minutes Spent Total Time Spent with Patient: Total time spent is greater than 50% in coordination of care (as documented) at patient's floor/unit and/or counseling patient: Coding Level of Care Code 99661 SUB INP/OBS CARE 235MIN Diagnoses Alcohol abuse F10.10 Opioid use disorder in remission F11.91 Elevated lipase R74.8 History of alcohol withdrawal delirium Z86.59 History of seizure due to alcohol withdrawal Z87.898; Z86.59 Thrombocytopenia D69.6
[2023-08-21] MEDS ORDERED: PHENobarbitaL 30 MG TAB PO SCH (14:30)
[2023-08-21] MEDS: PHENobarbitaL 30 MG TAB PO SCH (15:29)
[2023-08-21] MEDS: PHENobarbital sodium 65 MG/ML VIAL IV PRN (21:28)
[2023-08-22] MEDS: ACETAMINOPHEN 325 MG TAB PO PRN (02:53)
[2023-08-22 09:52] LABS: Hematocrit (blood only) 39.9 % (42.0-52.0); Hemoglobin 13.2 g/dl (14.0-18.0); Mean Corpuscular Hemoglobin 29.8 pg (25.0-34.0); Mean Corpuscular Hgb Conc 33.1 g/dL (32.0-36.0); Mean Corpuscular Volume 90.1 fL (80.0-100.0); Mean Platelet Volume 10.7 fL (9.4-12.4); Platelet Count 74 K/uL (130-400); RDW Coefficient of Variation 12.7 % (11.5-14.5); Red Blood Count 4.43 M/uL (4.70-6.10)
[2023-08-22 10:06] LABS: BUN Creatinine Ratio 7.5 (10-20); Calcium 9.5 mg/dl (8.6-10.3); Creatinine Clr Calc Pharmacy 136.1 ml/min; Est GFR (African American) 130.4 ml/min; Est GFR (Non-African American) 112.5 ml/min; Potassium 3.8 mmol/L (3.5-5.1)
--- NOTE | 2023-08-22 14:21 | Hospitalist Progress Note ---
Date of Service August 22, 2023 Assessment & Plan (1) Alcohol abuse: Plan: Patient here for supervised alcohol withdrawal. Everyday heavy drinker History of DTs and alcohol withdrawal seizures in the past Completed Librium and Neurontin taper Now on phenobarb taper Nicotine patch (2) Opioid use disorder in remission: Plan: Patient stable on Suboxone 8-2 mg SL BID. Continue while inpatient. (3) Elevated lipase: Plan: Elevated lipase without signs of pancreatitis on CT. Continue clear liquid diet Continue IV fluids (4) History of alcohol withdrawal delirium: (5) History of seizure due to alcohol withdrawal: (6) Thrombocytopenia: Plan: Platelet count in the 70s. Most likely related to his alcohol use and liver problems No bleeding On Lovenox for DVT prophylaxis. Monitor CBC daily Plan Code status: full DVT ppx: Lovenox SQ Dispo: PCU/tele Admission and Anticipated Discharge Date Admission Date: August 17, 2023 Subjective Patient is doing fairly well. Still on phenobarb course Review of Systems Review of Systems: All systems reviewed & are unremarkable except as noted in Subjective Physical Exam Physical Exam: General: Awake. Able to talk to me. AOx3. Heart: S1, S2/regular rate and rhythm, no murmur rubs or gallops Lungs: Clear to auscultation bilaterally. Normal effort Abdomen: Soft/nontender/nondistended. No hepatosplenomegaly Extremities: No clubbing/cyanosis. No edema Behavior: Appropriate, cooperative Results & Data Results & Data Vital Signs (Past 12 Hours) Vital Signs Temp Pulse Pulse Resp BP Pulse Ox O2 Del Method 08/22/23 11:41 38.7 C H 92 H 16 160/96 H 99 Room Air 08/22/23 09:00 73 08/22/23 08:02 36.6 C 66 17 143/100 H 98 Room Air 08/22/23 03:08 37.0 C 102 H 21 144/99 H 98 Room Air Laboratory Results Abnormal lab results 08/22/23 Range/Units 09:35 WBC 2.10 L (4.8-10.8) K/ul RBC 4.43 L (4.70-6.10) M/uL Hgb 13.2 L (14.0-18.0) g/dl Hct 39.9 L (42.0-52.0) % Plt Count 74 L (130-400) K/uL BUN/Creatinine Ratio 7.5 L (10-20) PG Care Time/CCT Total # of Minutes Spent Total Time Spent with Patient: Total time spent is greater than 50% in coordination of care (as documented) at patient's floor/unit and/or counseling patient: Coding Level of Care Code 99854 SUB INP/OBS CARE 2/35MIN Diagnoses Alcohol abuse F10.10 Opioid use disorder in remission F11.91 Elevated lipase R74.8 History of alcohol withdrawal delirium Z86.59 History of seizure due to alcohol withdrawal Z87.898; Z86.59 Thrombocytopenia D69.6
[2023-08-22] MEDS: ONDANSETRON INJ 2 MG/ML 2 ML VIAL IV PRN (14:23)
[2023-08-23] MEDS ORDERED: PHENobarbitaL 30 MG TAB PO SCH (02:30)
[2023-08-23] MEDS: PHENobarbitaL 30 MG TAB PO SCH ×2 (03:09→13:36)
[2023-08-23 09:33] LABS: Calcium 9.6 mg/dl (8.6-10.3); Potassium 4.3 mmol/L (3.5-5.1)
[2023-08-23 09:39] LABS: BUN Creatinine Ratio 10.8 (10-20); Creatinine Clr Calc Pharmacy 147.1 ml/min; Est GFR (African American) 134.7 ml/min; Est GFR (Non-African American) 116.2 ml/min
[2023-08-23 10:22] LABS: Hematocrit (blood only) 37.9 % (42.0-52.0); Mean Corpuscular Hemoglobin 29.8 pg (25.0-34.0); Mean Corpuscular Hgb Conc 34.3 g/dL (32.0-36.0); Mean Corpuscular Volume 86.9 fL (80.0-100.0); Mean Platelet Volume 10.9 fL (9.4-12.4); Platelet Count 73 K/uL (130-400); RDW Coefficient of Variation 12.6 % (11.5-14.5); RDW Standard Deviation 40.6 fL (36.4-46.3); Red Blood Count 4.36 M/uL (4.70-6.10)
[2023-08-23] MEDS ORDERED: PHENobarbital PO Alcohol Withdrawal PO STA ×2 (13:02→20:35)
--- NOTE | 2023-08-23 13:08 | Hospitalist Progress Note ---
Date of Service August 23, 2023 Assessment & Plan (1) Alcohol abuse: Plan: Patient here for supervised alcohol withdrawal. Everyday heavy drinker History of DTs and alcohol withdrawal seizures in the past Completed Librium and Neurontin taper Now on phenobarb taper. Completed course Withdrawal got worse after the phenobarbital course was completed Will start the phenobarb taper again. Nicotine patch (2) Opioid use disorder in remission: Plan: Patient stable on Suboxone 8-2 mg SL BID. Continue while inpatient. (3) Elevated lipase: Plan: Elevated lipase without signs of pancreatitis on CT. Was given IV fluids and clear liquid for a few days Is now tolerating solid diet (4) History of alcohol withdrawal delirium: (5) History of seizure due to alcohol withdrawal: (6) Thrombocytopenia: Plan: Platelet count in the 70s. Most likely related to his alcohol use and liver problems No bleeding On Lovenox for DVT prophylaxis. Monitor CBC daily Plan Code status: full DVT ppx: Lovenox SQ Dispo: PCU/tele Admission and Anticipated Discharge Date Admission Date: August 17, 2023 Subjective Nurse is concerned that his withdrawal is getting worse as the patient is now sweating and is starting to get restless again. The patient says that he is feeling the shakes again. Review of Systems Review of Systems: All systems reviewed & are unremarkable except as noted in Subjective Physical Exam Physical Exam: General: Awake. Able to talk to me. AOx3. Heart: S1, S2/regular rate and rhythm, no murmur rubs or gallops Lungs: Clear to auscultation bilaterally. Normal effort Abdomen: Soft/nontender/nondistended. No hepatosplenomegaly Extremities: No clubbing/cyanosis. No edema Behavior: Appropriate, cooperative Results & Data Results & Data Vital Signs (Past 12 Hours) Vital Signs Temp Pulse Pulse Pulse Resp BP BP 08/23/23 11:00 36.6 C 70 12 138/93 08/23/23 09:14 36.9 C 96 H 19 135/91 08/23/23 07:30 08/23/23 07:25 82 12 162/107 H 08/23/23 07:19 38.4 C H 92 H 18 162/107 H 08/23/23 07:09 69 08/23/23 03:08 37.7 C H 73 18 153/103 H Pulse Ox O2 Del Method 08/23/23 11:00 99 Room Air 08/23/23 09:14 99 Room Air 08/23/23 07:30 Room Air 08/23/23 07:25 08/23/23 07:19 97 Room Air 08/23/23 07:09 08/23/23 03:08 98 Room Air Laboratory Results Abnormal lab results 08/23/23 08/23/23 Range/Units 10:02 Unknown WBC 1.60 L (4.8-10.8) K/ul RBC 4.36 L (4.70-6.10) M/uL Hgb 13.0 L (14.0-18.0) g/dl Hct 37.9 L (42.0-52.0) % Plt Count 73 L (130-400) K/uL Sodium 132 L (136-145) mmol/L PG Care Time/CCT Total # of Minutes Spent Total Time Spent with Patient: Total time spent is greater than 50% in coordination of care (as documented) at patient's floor/unit and/or counseling patient: Coding Level of Care Code 78067 SUB INP/OBS CARE 2/35MIN Diagnoses Alcohol abuse F10.10 Opioid use disorder in remission F11.91 Elevated lipase R74.8 History of alcohol withdrawal delirium Z86.59 History of seizure due to alcohol withdrawal Z87.898; Z86.59 Thrombocytopenia D69.6
[2023-08-23] MEDS: LORazepam 2 MG in SYRINGE 1 ML IV STA (17:51)
[2023-08-23] MEDS ORDERED: PHENobarbital sodium 65 MG/ML VIAL IV PRN (20:50)
[2023-08-23] MEDS: PHENobarbital sodium 130 MG/ML VIAL ONE (21:07)
[2023-08-23] MEDS: PHENobarbital sodium 65 MG/ML VIAL IV STA (21:08)
[2023-08-24] MEDS: PHENobarbital sodium 65 MG/ML VIAL IV PRN (07:43)
[2023-08-24] MEDS: PHENobarbitaL 30 MG TAB PO SCH (08:41)
[2023-08-24 09:36] LABS: Hematocrit (blood only) 37.8 % (42.0-52.0); Hemoglobin 12.8 g/dl (14.0-18.0); Mean Corpuscular Hemoglobin 29.7 pg (25.0-34.0); Mean Corpuscular Hgb Conc 33.9 g/dL (32.0-36.0); Mean Corpuscular Volume 87.7 fL (80.0-100.0); Platelet Count 75 K/uL (130-400); RDW Coefficient of Variation 12.5 % (11.5-14.5); RDW Standard Deviation 40.1 fL (36.4-46.3); Red Blood Count 4.31 M/uL (4.70-6.10); White Blood Count 2.05 K/ul (4.8-10.8)
[2023-08-24 09:46] LABS: BUN Creatinine Ratio 14.3 (10-20); Calcium 8.9 mg/dl (8.6-10.3); Creatinine Clr Calc Pharmacy 155.5 ml/min; Est GFR (African American) 137.8 ml/min; Est GFR (Non-African American) 118.9 ml/min; Potassium 3.9 mmol/L (3.5-5.1)
--- NOTE | 2023-08-24 12:12 | Hospitalist Progress Note ---
Date of Service August 24, 2023 Assessment & Plan (1) Alcohol abuse: Plan: Patient here for supervised alcohol withdrawal. Everyday heavy drinker History of DTs and alcohol withdrawal seizures in the past Completed Librium and Neurontin taper Now on phenobarb taper. Completed course Withdrawal got worse after the phenobarbital course was completed Now on phenobarb course again. Will do a slow taper at this time. Nicotine patch (2) Opioid use disorder in remission: Plan: Patient stable on Suboxone 8-2 mg SL BID. Continue while inpatient. (3) Elevated lipase: Plan: Elevated lipase without signs of pancreatitis on CT. Was given IV fluids and clear liquid for a few days Is now tolerating solid diet (4) History of alcohol withdrawal delirium: (5) History of seizure due to alcohol withdrawal: (6) Thrombocytopenia: Plan: Platelet count in the 70s. Most likely related to his alcohol use and liver problems No bleeding On Lovenox for DVT prophylaxis. Monitor CBC daily Plan Code status: full DVT ppx: Lovenox SQ Dispo: PCU/tele Admission and Anticipated Discharge Date Admission Date: August 17, 2023 Subjective Overnight, patient was scoring high on the withdrawal scale. Required phenobarbital IV doses. He is scoring 6 on the scale now. Review of Systems Review of Systems: All systems reviewed & are unremarkable except as noted in Subjective Physical Exam Physical Exam: General: Awake. Able to talk to me. AOx3. Restless, sweaty Heart: S1, S2/regular rate and rhythm, no murmur rubs or gallops Lungs: Clear to auscultation bilaterally. Normal effort Abdomen: Soft/nontender/nondistended. No hepatosplenomegaly Extremities: No clubbing/cyanosis. No edema Behavior: Appropriate, cooperative Results & Data Results & Data Vital Signs (Past 12 Hours) Vital Signs Temp Pulse Pulse Resp BP BP BP 08/24/23 10:44 36.6 C 69 10 L 148/103 H 08/24/23 08:41 36.9 C 91 H 21 158/109 H 08/24/23 08:37 77 08/24/23 07:43 87 19 175/131 H 08/24/23 07:36 37.5 C 81 18 176/131 H 08/24/23 02:49 37.1 C 72 16 136/97 08/24/23 02:00 Pulse Ox Pulse Ox O2 Del Method O2 Del Method 08/24/23 10:44 97 Room Air 08/24/23 08:41 98 Room Air 08/24/23 08:37 08/24/23 07:43 08/24/23 07:36 98 Room Air 08/24/23 02:49 98 Room Air 08/24/23 02:00 97 Room Air Laboratory Results Abnormal lab results 08/24/23 Range/Units 08:56 WBC 2.05 L (4.8-10.8) K/ul RBC 4.31 L (4.70-6.10) M/uL Hgb 12.8 L (14.0-18.0) g/dl Hct 37.8 L (42.0-52.0) % Plt Count 75 L (130-400) K/uL Sodium 132 L (136-145) mmol/L Chloride 97 L (98-107) mmol/L PG Care Time/CCT Total # of Minutes Spent Total Time Spent with Patient: Total time spent is greater than 50% in coordination of care (as documented) at patient's floor/unit and/or counseling patient: Coding Level of Care Code 71255 SUB INP/OBS CARE 2/35MIN Diagnoses Alcohol abuse F10.10 Opioid use disorder in remission F11.91 Elevated lipase R74.8 History of alcohol withdrawal delirium Z86.59 History of seizure due to alcohol withdrawal Z87.898; Z86.59 Thrombocytopenia D69.6
[2023-08-24] MEDS ORDERED: PHENobarbitaL 30 MG TAB PO SCH (15:00)
[2023-08-24] MEDS: hydrOXYzine HCl 25 MG TAB PO STA (20:09)
[2023-08-25 07:29] LABS: Hematocrit (blood only) 38.3 % (42.0-52.0); Hemoglobin 13.1 g/dl (14.0-18.0); Mean Corpuscular Hemoglobin 30.1 pg (25.0-34.0); Mean Corpuscular Hgb Conc 34.2 g/dL (32.0-36.0); Mean Platelet Volume 12.1 fL (9.4-12.4); Platelet Count 103 K/uL (130-400); RDW Coefficient of Variation 12.6 % (11.5-14.5); RDW Standard Deviation 41.1 fL (36.4-46.3); Red Blood Count 4.35 M/uL (4.70-6.10)
[2023-08-25 07:44] LABS: BUN Creatinine Ratio 11.9 (10-20); Calcium 9.2 mg/dl (8.6-10.3); Creatinine Clr Calc Pharmacy 162.5 ml/min; Est GFR (African American) 140.3 ml/min; Potassium 3.8 mmol/L (3.5-5.1)
[2023-08-25] MEDS ORDERED: PHENobarbitaL 30 MG TAB PO SCH ×2 (14:00→15:00)
--- NOTE | 2023-08-25 17:33 | Hospitalist Progress Note ---
Date of Service August 25, 2023 Assessment & Plan (1) Alcohol abuse: Plan: Patient here for supervised alcohol withdrawal. Everyday heavy drinker History of DTs and alcohol withdrawal seizures in the past Completed Librium and Neurontin taper Now on phenobarb taper. Completed course Withdrawal got worse after the phenobarbital course was completed Now on phenobarb course again. Will do a slow taper at this time. Nicotine patch (2) Opioid use disorder in remission: Plan: Patient stable on Suboxone 8-2 mg SL BID. Continue while inpatient. (3) Elevated lipase: Plan: Elevated lipase without signs of pancreatitis on CT. Was given IV fluids and clear liquid for a few days Is now tolerating solid diet (4) History of alcohol withdrawal delirium: (5) History of seizure due to alcohol withdrawal: (6) Thrombocytopenia: Plan: Platelet count in the 70s. Most likely related to his alcohol use and liver problems No bleeding On Lovenox for DVT prophylaxis. Monitor CBC daily Plan Code status: full DVT ppx: Lovenox SQ Dispo: PCU/tele Admission and Anticipated Discharge Date Admission Date: August 17, 2023 Supervising Physician Co-Signing Physician Notes Attending addendum: I have physically seen this patient, have supervised the medical residents activities, and agree with the H&P unless as otherwise noted. Assessment and Plan: Alcohol intoxication/alcohol abuse/history of alcohol withdrawal seizures- Admit to PCU telemetry Alcohol level 526 on admission AWSS protocol with oral gabapentin, Librium and IV lorazepam Expect that patient will probably need phenobarbital if he does not leave AMA first Patient is relatively coherent and communicative had a high alcohol level, indicating chronicity Received 1 L normal saline in the ED, continue IV fluids as noted History of opioid use- Continue Suboxone Tobacco use disorder- Nicotine patch ordered Pancreatitis- Mildly elevated lipase at 401 Follow serially Subjective no symptoms of withdrawal, he is comfortable Review of Systems Review of Systems: All systems reviewed & are unremarkable except as noted in Subjective Physical Exam Physical Exam: head is atraumatic neck supple chest CTA heart S1S2 regular abdomen soft, nt, nd, bs present extremities no edema Results & Data Results & Data Vital Signs (Past 12 Hours) Vital Signs Temp Pulse Pulse Resp BP Pulse Ox O2 Del Method 08/25/23 15:29 36.8 C 66 13 138/98 99 Room Air 08/25/23 07:43 37.1 C 79 15 144/97 H 99 Room Air 08/25/23 07:00 66 PG Care Time/CCT Total # of Minutes Spent Total Time Spent with Patient: Total time spent is greater than 50% in coordination of care (as documented) at patient's floor/unit and/or counseling patient: Coding Level of Care Code 08204 SUB INP/OBS CARE 2/35MIN Diagnoses Alcohol abuse F10.10 Opioid use disorder in remission F11.91 Elevated lipase R74.8 History of alcohol withdrawal delirium Z86.59 History of seizure due to alcohol withdrawal Z87.898; Z86.59 Thrombocytopenia D69.6
[2023-08-25] MEDS: hydrOXYzine HCl 25 MG TAB PO STA (20:39)
[2023-08-26 07:22] LABS: Hematocrit (blood only) 40.1 % (42.0-52.0); Hemoglobin 13.3 g/dl (14.0-18.0); Mean Corpuscular Hemoglobin 29.7 pg (25.0-34.0); Mean Corpuscular Hgb Conc 33.2 g/dL (32.0-36.0); Mean Corpuscular Volume 89.5 fL (80.0-100.0); Mean Platelet Volume 11.9 fL (9.4-12.4); Platelet Count 151 K/uL (130-400); RDW Standard Deviation 43.1 fL (36.4-46.3); Red Blood Count 4.48 M/uL (4.70-6.10); White Blood Count 5.06 K/ul (4.8-10.8)
[2023-08-26 07:46] LABS: BUN Creatinine Ratio 21.9 (10-20); Creatinine Clr Calc Pharmacy 170.1 ml/min; Est GFR (African American) 142.9 ml/min; Est GFR (Non-African American) 123.3 ml/min; Potassium 4.3 mmol/L (3.5-5.1)
[2023-08-26 07:47] LABS: Calcium 9.1 mg/dl (8.6-10.3)
[2023-08-26] MEDS: PHENobarbitaL 30 MG TAB PO SCH (08:35)
[2023-08-26] MEDS: PHENobarbitaL 30 MG TAB PO STA (10:45)
--- NOTE | 2023-08-26 12:43 | Hospitalist Progress Note ---
Date of Service August 26, 2023 Assessment & Plan (1) Alcohol abuse: Plan: Patient here for supervised alcohol withdrawal. Everyday heavy drinker History of DTs and alcohol withdrawal seizures in the past Completed Librium and Neurontin taper Now on phenobarb taper. Completed course Withdrawal got worse after the phenobarbital course was completed Now on phenobarb course again. Will do a slow taper at this time. Nicotine patch will start Seroquel (2) Opioid use disorder in remission: Plan: Patient stable on Suboxone 8-2 mg SL BID. Continue while inpatient. (3) Elevated lipase: Plan: Elevated lipase without signs of pancreatitis on CT. Was given IV fluids and clear liquid for a few days Is now tolerating solid diet (4) History of alcohol withdrawal delirium: (5) History of seizure due to alcohol withdrawal: (6) Thrombocytopenia: Plan: Platelet count in the 70s. Most likely related to his alcohol use and liver problems No bleeding On Lovenox for DVT prophylaxis. Monitor CBC daily platelets recovered Plan Code status: full DVT ppx: Lovenox SQ Dispo: PCU/tele Admission and Anticipated Discharge Date Admission Date: August 17, 2023 Subjective no symptoms of withdrawal, he is comfortable , but reported to the nurse that he still needs higher dose of phenobarbital Review of Systems Review of Systems: All systems reviewed & are unremarkable except as noted in Subjective Physical Exam Physical Exam: head is atraumatic neck supple chest CTA heart S1S2 regular abdomen soft, nt, nd, bs present extremities no edema Results & Data Results & Data Vital Signs (Past 12 Hours) Vital Signs Temp Pulse Pulse Pulse Resp BP BP 08/26/23 10:56 37.0 C 60 12 136/92 08/26/23 07:48 36.6 C 68 17 146/101 H 08/26/23 07:00 59 L 08/26/23 02:19 36.8 C 72 18 133/78 08/26/23 02:00 Pulse Ox Pulse Ox O2 Del Method O2 Del Method 08/26/23 10:56 97 Room Air 08/26/23 07:48 99 Room Air 08/26/23 07:00 08/26/23 02:19 98 Room Air 08/26/23 02:00 98 Room Air PG Care Time/CCT Total # of Minutes Spent Total Time Spent with Patient: Total time spent is greater than 50% in coordination of care (as documented) at patient's floor/unit and/or counseling patient: Coding Level of Care Code 68970 SUB INP/OBS CARE 2MIN Diagnoses Alcohol abuse F10.10 Opioid use disorder in remission F11.91 Elevated lipase R74.8 History of alcohol withdrawal delirium Z86.59 History of seizure due to alcohol withdrawal Z87.898; Z86.59 Thrombocytopenia D69.6
[2023-08-26] MEDS: QUEtiapine FUMARATE 25 MG TABLET PO SCH (14:38)
[2023-08-26] MEDS: LORazepam 1 MG TAB PO PRN (19:25)
[2023-08-26] MEDS: QUEtiapine FUMARATE 100 MG TABLET PO SCH (20:54)
[2023-08-27] MEDS ORDERED: PHENobarbitaL 30 MG TAB PO SCH ×2 (02:00→03:00)
--- NOTE | 2023-08-27 10:02 | Hospitalist Progress Note ---
Date of Service August 27, 2023 Assessment & Plan (1) Alcohol abuse: Plan: Patient here for supervised alcohol withdrawal. Everyday heavy drinker History of DTs and alcohol withdrawal seizures in the past Completed Librium and Neurontin taper Now on phenobarb taper. Completed course Withdrawal got worse after the phenobarbital course was completed Now on phenobarb course again. Will do a slow taper at this time. Nicotine patch started Seroquel (2) Opioid use disorder in remission: Plan: Patient stable on Suboxone 8-2 mg SL BID. Continue while inpatient. (3) Elevated lipase: Plan: Elevated lipase without signs of pancreatitis on CT. Was given IV fluids and clear liquid for a few days Is now tolerating solid diet iv fluids stopped (4) History of alcohol withdrawal delirium: (5) History of seizure due to alcohol withdrawal: (6) Thrombocytopenia: Plan: Platelet count in the 70s. Most likely related to his alcohol use and liver problems No bleeding On Lovenox for DVT prophylaxis. Monitor CBC daily platelets recovered Plan Code status: full DVT ppx: Lovenox SQ Dispo: PCU/tele Admission and Anticipated Discharge Date Admission Date: August 17, 2023 Subjective no symptoms of withdrawal, he reports severe anxiety , no headache, no chest pain, no SOB, no fever, no chills, no abdominal pain, tolerating diet Review of Systems Review of Systems: All systems reviewed & are unremarkable except as noted in Subjective Physical Exam Physical Exam: head is atraumatic neck supple chest CTA heart S1S2 regular abdomen soft, nt, nd, bs present extremities no edema Results & Data Results & Data Vital Signs (Past 12 Hours) Vital Signs Temp Pulse Pulse Resp BP BP Pulse Ox 08/27/23 08:00 08/27/23 07:32 36.6 C 64 18 121/82 98 08/27/23 07:00 66 08/27/23 03:13 36.6 C 63 18 111/72 96 08/26/23 22:52 78 08/26/23 22:34 36.9 C 88 18 131/75 97 O2 Del Method 08/27/23 08:00 Room Air 08/27/23 07:32 Room Air 08/27/23 07:00 08/27/23 03:13 Room Air 08/26/23 22:52 08/26/23 22:34 Room Air PG Care Time/CCT Total # of Minutes Spent Total Time Spent with Patient: Total time spent is greater than 50% in coordination of care (as documented) at patient's floor/unit and/or counseling patient: Coding Level of Care Code 67652 SUB INP/OBS CARE 2MIN Diagnoses Alcohol abuse F10.10 Opioid use disorder in remission F11.91 Elevated lipase R74.8 History of alcohol withdrawal delirium Z86.59 History of seizure due to alcohol withdrawal Z87.898; Z86.59 Thrombocytopenia D69.6
[2023-08-27 10:26] LABS: Hemoglobin 13.3 g/dl (14.0-18.0); Mean Corpuscular Hemoglobin 29.8 pg (25.0-34.0); Mean Corpuscular Hgb Conc 33.3 g/dL (32.0-36.0); Mean Corpuscular Volume 89.7 fL (80.0-100.0); Mean Platelet Volume 11.5 fL (9.4-12.4); Platelet Count 213 K/uL (130-400); RDW Coefficient of Variation 13.2 % (11.5-14.5); RDW Standard Deviation 43.8 fL (36.4-46.3); Red Blood Count 4.46 M/uL (4.70-6.10); White Blood Count 6.87 K/ul (4.8-10.8)
[2023-08-27 10:38] LABS: BUN Creatinine Ratio 21.7 (10-20); Calcium 9.2 mg/dl (8.6-10.3); Creatinine Clr Calc Pharmacy 157.8 ml/min; Est GFR (African American) 138.6 ml/min; Est GFR (Non-African American) 119.6 ml/min; Potassium 4.3 mmol/L (3.5-5.1)
[2023-08-27] MEDS: QUEtiapine FUMARATE 100 MG TABLET PO ONE (10:56)
[2023-08-27] MEDS: QUEtiapine FUMARATE 200 MG TAB PO SCH ×2 (11:04→14:07)
[2023-08-28] MEDS ORDERED: PHENobarbitaL 30 MG TAB PO SCH (09:00)
[2023-08-28 10:22] LABS: Hematocrit (blood only) 42.2 % (42.0-52.0); Hemoglobin 13.6 g/dl (14.0-18.0); Mean Corpuscular Hemoglobin 29.2 pg (25.0-34.0); Mean Corpuscular Hgb Conc 32.2 g/dL (32.0-36.0); Mean Corpuscular Volume 90.8 fL (80.0-100.0); Mean Platelet Volume 11.7 fL (9.4-12.4); Platelet Count 270 K/uL (130-400); RDW Coefficient of Variation 13.3 % (11.5-14.5); RDW Standard Deviation 44.8 fL (36.4-46.3); Red Blood Count 4.65 M/uL (4.70-6.10); White Blood Count 8.05 K/ul (4.8-10.8)
[2023-08-28 10:35] LABS: BUN Creatinine Ratio 23.9 (10-20); Calcium 9.9 mg/dl (8.6-10.3); Creatinine Clr Calc Pharmacy 162.5 ml/min; Est GFR (African American) 140.3 ml/min; Potassium 4.4 mmol/L (3.5-5.1)
--- NOTE | 2023-08-28 11:04 | Discharge Summary ---
Date of Service August 28, 2023 Admission HPI Per Admitting Provider 38 y/o male with a PMHx of substance use disorder on Suboxone and alcohol use disorder presents for medically supervised withdrawal. Patient believes he last drink was the morning of 08/15. He drank a fifth of vodka from 08/14-08/15. Patient wants to get sober. Knows if he goes home he will drink. Current every day drinker. Has gone through severe withdrawal in the past with dts and seizures. He was also have left sided flank pain which he was concerned was related to his pancreas. Patient does not currently have withdrawal symptoms. Would like a nicotine patch. No f/c/CP/SOB/abdominal pain/nausea or vomiting. Principal Diagnosis alcohol withdrawal Discharge Exam head atraumatic neck supple chest CTA b/l heart [id number] abdomen soft, nt, nd , bs extremities no edema neuro AAO times 3 Discharge Data Allergies Allergy/AdvReac Type Severity Reaction Status Date / Time No Known Allergies Allergy Unverified 12/05/21 09:56 Consultations 08/17/23 00:33 ED Decision to Admit Stat Ordered Studies 08/16/23 21:00 CT Abd and Pelvis [CT abd pelvis IV con only] Stat Hospital Course (1) Alcohol abuse: Patient here for supervised alcohol withdrawal. Everyday heavy drinker History of DTs and alcohol withdrawal seizures in the past Completed Librium and Neurontin taper Now on phenobarb taper. Completed course Withdrawal got worse after the phenobarbital course was completed Now on phenobarb course again. Will do a slow taper at this time. Nicotine patch started Seroquel , reports no symptoms of withdrawal (2) Opioid use disorder in remission: Patient stable on Suboxone 8-2 mg SL BID. Continue while inpatient. (3) Elevated lipase: Elevated lipase without signs of pancreatitis on CT. Was given IV fluids and clear liquid for a few days Is now tolerating solid diet iv fluids stopped monitor (4) History of alcohol withdrawal delirium: (5) History of seizure due to alcohol withdrawal: (6) Thrombocytopenia: Platelet count in the 70s. Most likely related to his alcohol use and liver problems No bleeding On Lovenox for DVT prophylaxis. Monitor CBC daily platelets recovered (7) IV infiltration: po Keflex, compresses , stable for discharge Plan Code status: full DVT ppx: Lovenox SQ Dispo: PCU/tele Total Time Total Time Spent Total Time Spent (In Minutes): 45 minutes Discharge Plan Discharge Items Patient Disposition: Home - Self-Care Reason For Visit: ALCOHOL WITHDRAWAL Discharge Diagnosis: alcohol withdrawal Condition on Discharge: Good Activity: Resume your previous activity Non-emergency contact: Primary Care Provider Call non-emergency contact if: your symptoms worsen Follow-up/Referrals: Cesar Harper, [Primary Care Provider] - Diet: Regular Addtl Attending Provider Instructions: follow up with PCP Pending Studies at Discharge: No Stand-Alone [facility] Medications and DC Order Prescriptions: New polyethylene glycol 3350 [Miralax] 17 gram Powder In Packet 17 g PO DAILY PRN (Reason: constipation) Qty: 10 0RF quetiapine [Seroquel] 200 mg Tablet 200 mg PO TID Qty: 90 0RF cephalexin 500 mg tablet 500 mg PO Q6H 7 Days Qty: 28 0RF Continued multivitamin Tablet 1 tab PO DAILY vitamin B complex [Vitamin B-100] Tablet 2 tab PO DAILY buprenorphine-naloxone 8-2 mg tablet, sublingual 1 tab SUBLINGUAL BID magnesium oxide 400 mg magnesium Tablet 400 mg PO DAILY folic acid 1 mg Tablet 1 mg PO DAILY Qty: 30 0RF Discharge Orders: Discharge Order (Routine); Ordered 08/28/23 Ordered By: Natalee Landry Admission Data Admit Date/Time: 08/17/23 01:44 Attending Provider: Natalee Landry Admit Provider: Aleshia Oleary Primary Care Provider: Cesar Harper Other Providers: Anastacio Wick Coding Level of Care Code 25400 INP/OBS DISCH >30 MIN Diagnoses Alcohol abuse F10.10 Opioid use disorder in remission F11.91 Elevated lipase R74.8 History of alcohol withdrawal delirium Z86.59 History of seizure due to alcohol withdrawal Z87.898; Z86.59 Thrombocytopenia D69.6 IV infiltration T80.1XXA
== END 2023-08-28 12:57 | disposition home or self-care (01) | DRG 897 ==
LOC: ED 20:06 → SUATTDRO 08-17 01:44 → EDINP 08-17 01:44 → 2S 08-17 02:03 → 2E 08-19 21:27